=== PATIENT | female | born 1985 | race Caucasian/White ===

== ENCOUNTER 2017-05-11 21:23 | Emergency (ER) | payer OTHER ==
[2017-05-11 21:31] VITALS: BP 125/70; PULSE 122; TEMP 99; BMI 28.1
[2017-05-11] MEDS ORDERED: SULFAMETHOXAZOLE/TRIMETHOPRIM 800MG/160MG D.S. TABLET PO ONE (22:04)
[2017-05-11] MEDS ORDERED: OXYCODONE/APAP 5/325MG COMBO TABLET PO ONE (22:04)
--- NOTE | 2017-05-11 22:04 | PDOC ---
History of Present Illness - General History Source: Patient Exam Limitations: No Limitations - History of Present Illness Initial Comments: 05/11/17 22:10 The patient is a 31 year old female with significant past medical history of insulin dependent diabetes who presents to the ED for redness and swelling on the right buttock. Patient reports 4 days ago she had a insect bite on the right buttock, which subsequently developed into a painful abscess. She attempted to shital the abscess herself without being able to drain the area. 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 She has only taken 3 doses total thus far. Patient also has complaints of chills, but no fever or diaphoresis. The patient denies cough, SOB, chest pain, and palpitations. The patient denies abdominal pain, nausea, vomiting, and diarrhea. Allergies: NKDA Social History: No alcohol, tobacco, or drug use reported. Past Surgical History: None reported PCP: None reported <Kaylyn Dotson - Last Filed: 05/11/17 22:10> - General History Source: Patient <[email or web address] mai - Last Filed: 05/11/17 23:19> - General Chief Complaint: Wound Infection Stated Complaint: BUG BITE Time Seen by Provider: 05/11/17 21:42 Past History <Kaylyn Dotson - Last Filed: 05/11/17 22:10> - Past Medical History Diabetes: Yes - Psycho/Social/Smoking Cessation Hx Suicidal Ideation: No Smoking History: Never smoked Number of Cigarettes Smoked Daily: 3 Hx Alcohol Use: No Drug/Substance Use Hx: No <Benedict Burris - Last Filed: 05/11/17 23:19> - Past Medical History Allergies/Adverse Reactions: Allergies Allergy/AdvReac Type Severity Reaction Status Date / Time No Known Allergies Allergy Verified 05/11/17 21:27 Home Medications: Ambulatory Orders Insulin Glargine,Hum.rec.anlog [Lantus Solostar PEN (NF)] 50 units SQ BID Insulin Lispro [Humalog] 0 unit SQ TID 06/24/16 Metformin HCl 850 mg PO DAILY 06/24/16 Ibuprofen 800 mg PO TID #30 tablet 05/11/17 Oxycodone HCl/Acetaminophen [Percocet 5-325 mg Tablet] 1 - 2 tab PO Q6H #20 tablet MDD 4 05/11/17 Sulfamethoxazole/Trimethoprim [Bactrim *Ds*] 1 tab PO BID #14 tablet 05/11/17 Review of Systems - Review of Systems Able to Perform ROS?: Yes Comments:: 05/11/17 22:10 CONSTITUTIONAL: Absent: fever, no chills, no fatigue EYES: Absent: visual changes ENT: Absent: ear pain, no sore throat CARDIOVASCULAR: Absent: chest pain, no palpitations RESPIRATORY: Absent: cough, no SOB GI: Absent: abdominal pain, no nausea, no vomiting, no constipation, no diarrhea GENITOURINARY: Absent: dysuria, no frequency, no hematuria MUSCULOSKELETAL: +abscess (redness and swelling) of the right buttock Absent: back pain, no arthralgia, no myalgia SKIN: Absent: rash NEURO: Absent: headache <Kaylyn Dotson - Last Filed: 05/11/17 22:10> *Physical Exam - Vital Signs Last Vital Signs Temp Pulse Resp BP Pulse Ox 99 F 122 H 18 125/70 100 05/11/17 21:29 05/11/17 21:29 05/11/17 21:29 05/11/17 21:29 05/11/17 21:29 - Physical Exam Comments: 05/11/17 22:10 GENERAL: Well-appearing, well-nourished. No apparent distress. HEENT: Normocephalic, atraumatic. PERRL, EOM intact. CARDIOVASCULAR: Normal S1, S2. Regular rate and rhythm. PULMONARY: Clear to auscultation bilaterally. ABDOMEN: Soft, non-distended, non-tender. EXTREMITIES: Normal ROM in all four extremities. No gross deformities. SKIN: Warm, dry. No rash. Right buttock firm, nonfluctuant, no lesion, with surrounding erythema measuring 7cm in diameter. NEUROLOGICAL: No focal neurological deficits. <Kaylyn Dotson - Last Filed: 05/11/17 22:10> - Vital Signs Last Vital Signs Temp Pulse Resp BP Pulse Ox 99 F 122 H 18 125/70 100 05/11/17 21:29 05/11/17 21:29 05/11/17 21:29 05/11/17 21:29 05/11/17 21:29 <Benedict Burris - Last Filed: 05/11/17 23:19> Medical Decision Making - Medical Decision Making 05/11/17 22:09 Dr. Burris: The scribe's documentation has been prepared under my direction and personally reviewed by me in its entirery. I confirm that the note above accurately reflects all work, treatment, procedures, and medical decision making performed by me. <Benedict Burris - Last Filed: 05/11/17 23:19> *DC/Admit/Observation/Transfer - Attestations Scribe Attestion: 05/11/17 22:10 Documentation prepared by Kaylyn Dotson, acting as medical records library professor for Benedict Burris MD/DO. <Kaylyn Dotson - Last Filed: 05/11/17 22:10> - Discharge Dispostion Admit: No <Benedict Burris - Last Filed: 05/11/17 23:19> Diagnosis at time of Disposition: Abscess of cellulitis of buttock - Discharge Dispostion Disposition: HOME Condition at time of disposition: Stable - Prescriptions Prescriptions: Sulfamethoxazole/Trimethoprim [Bactrim *Ds*] 1 tab PO BID #14 tablet Ibuprofen 800 mg PO TID #30 tablet Oxycodone HCl/Acetaminophen [Percocet 5-325 mg Tablet] 1 - 2 tab PO Q6H #20 tablet MDD 4 - Patient Instructions Printed Discharge Instructions: DI for Wound Infection Additional Instructions: Take medication as directed. Apply warm compresses to area in order to soften lesion for expression or possible extraction - Post Discharge Activity Work/School Note: Back to Work
[2017-05-11] MEDS ORDERED: OXYCODONE/APAP 5/325MG COMBO TABLET ONE (22:11)
[2017-05-11] MEDS ORDERED: SULFAMETHOXAZOLE/TRIMETHOPRIM 800MG/160MG D.S. TABLET ONE (22:12)
== END 2017-05-11 22:50 | disposition home or self-care (01) ==
LOC: JER 21:23
DX: S30.860A Insect bite (nonvenomous) of lower back and pelvis, initial encounter (principal); L03.317 Cellulitis of buttock; W57.XXXA Bitten or stung by nonvenomous insect and other nonvenomous arthropods, initial encounter; Y93.89 Activity, other specified; Y92.89 Other specified places as the place of occurrence of the external cause; Y99.8 Other external cause status
CPT/HCPCS: 99281-25

== ENCOUNTER 2017-05-13 18:21 | Emergency (ER) | payer OTHER ==
[2017-05-13 18:31] VITALS: BMI 28.1
[2017-05-13] MEDS ORDERED: CLINDAMYCIN 600MG PREMIX IVPB 50 ML IVPB ONE ×2 (19:59→20:10)
--- NOTE | 2017-05-13 19:59 | PDOC ---
History of Present Illness - General Chief Complaint: SIRS, Suspected/Possible Stated Complaint: ABCESS/diabetic/revisit Time Seen by Provider: 05/13/17 19:19 History Source: Patient Exam Limitations: No Limitations - History of Present Illness Initial Comments: 05/20/17 01:23 31-year-old female presents to the emergency department complaining of swelling/ tenderness and redness to the right mid buttocks 4 days. Patient denies any fever, chills, nausea/vomiting, abdominal pains, difficulty voiding or having difficult bowel movements. Patient states she was taking Keflex without relief of pain/swelling or redness. Timing/Duration: reports: week Past History - Past Medical History Allergies/Adverse Reactions: Allergies Allergy/AdvReac Type Severity Reaction Status Date / Time No Known Allergies Allergy Verified 05/15/17 23:54 Home Medications: Ambulatory Orders Insulin Glargine,Hum.rec.anlog [Lantus Solostar PEN (NF)] 50 units SQ BID Metformin HCl 850 mg PO DAILY 06/24/16 Ibuprofen 800 mg PO TID #30 tablet 05/11/17 Oxycodone HCl/Acetaminophen [Percocet 5-325 mg Tablet] 1 - 2 tab PO Q6H #20 tablet MDD 4 05/11/17 Sulfamethoxazole/Trimethoprim [Bactrim *Ds*] 1 tab PO BID #14 tablet 05/11/17 Clindamycin HCl 300 mg PO TID #21 capsule 05/13/17 Oxycodone HCl/Acetaminophen [Percocet 5-325 mg Tablet] 1 tab PO Q6H #15 tablet MDD 4 05/13/17 Diabetes: Yes (iddm) Hypercholesterolemia: Yes - Surgical History Cholecystectomy: Yes - Psycho/Social/Smoking Cessation Hx Anxiety: No Suicidal Ideation: No Smoking History: Never smoked Have you smoked in the past 12 months: No Number of Cigarettes Smoked Daily: 3 Information on smoking cessation initiated: No Hx Alcohol Use: No Drug/Substance Use Hx: No Substance Use Type: None Review of Systems - Review of Systems Able to Perform ROS?: Yes Comments:: 05/20/17 01:24 CONSTITUTIONAL: Absent: fever, chills, diaphoresis, generalized weakness, malaise, loss of appetite HEENT: Absent: rhinorrhea, nasal congestion, throat pain, throat swelling, difficulty swallowing, mouth swelling, ear pain, eye pain, visual Changes CARDIOVASCULAR: Absent: chest pain, loss of consciousness, palpitations, irregular heart rate, peripheral edema RESPIRATORY: Absent: cough, shortness of breath, dyspnea with exertion, orthopnea, wheezing, stridor, hemoptysis GASTROINTESTINAL: Absent: abdominal pain, abdominal distension, nausea, vomiting, diarrhea, constipation, melena, hematochezia GENITOURINARY: Absent: dysuria, frequency, urgency, hesitancy, hematuria, flank pain, genital pain MUSCULOSKELETAL: Absent: myalgia, arthralgia, joint swelling SKIN: right mid buttock: +pain/redness Absent: rash, itching, pallor HEMATOLOGIC/IMMUNOLOGIC: Absent: easy bleeding, easy bruising, lymphadenopathy, frequent infections ENDOCRINE: Absent: unexplained weight gain, unexplained weight loss, heat intolerance, cold intolerance NEUROLOGIC: Absent: headache, focal weakness or paresthesias, dizziness, unsteady gait, seizure, mental status changes, bladder or bowel incontinence PSYCHIATRIC: Absent: anxiety, depression, suicidal or homicidal ideation, hallucinations. 05/20/17 01:25 Is the patient limited Uzbek proficient: No *Physical Exam - Vital Signs Last Vital Signs Temp Pulse Resp BP Pulse Ox 99.3 F 114 H 18 123/68 100 05/13/17 18:28 05/13/17 18:28 05/13/17 18:28 05/13/17 18:28 05/13/17 18:28 - Physical Exam Comments: 05/20/17 01:25 GENERAL: Well developed, well nourished. Awake and alert. No acute distress. HEENT: Normocephalic, atraumatic. PERRLA, EOMI. No conjunctival pallor. Sclera are non- icteric. Moist mucous membranes. Oropharynx is clear. NECK: Supple. Full ROM. No JVD. Carotid pulses 2+ and symmetric, without bruits. No thyromegaly. No lymphadenopathy. CARDIOVASCULAR: Regular rate and rhythm. No murmurs, rubs, or gallops. Distal pulses are 2+ and symmetric. PULMONARY: No evidence of respiratory distress. Lungs clear to auscultation bilaterally. No wheezing, rales or rhonchi. ABDOMINAL: Soft. Non-tender. Non-distended. No rebound or guarding. No organomegaly. Normoactive bowel sounds. MUSCULOSKELETAL Normal range of motion at all joints. No bony deformities or tenderness. No CVA tenderness. EXTREMITIES: No cyanosis. No clubbing. No edema. No calf tenderness. SKIN: Warm and dry. Normal capillary refill. No rashes. No jaundice. NEUROLOGICAL: Alert, awake, appropriate. Cranial nerves 2-12 intact. No deficits to light touch and temperature in face, upper extremities and lower extremities. No motor deficits in the in face, upper extremities and lower extremities. Normoreflexic in the upper and lower extremities. Normal speech. Toes are down- going bilaterally. Gait is normal without ataxia. PSYCHIATRIC: Cooperative. Good eye contact. Appropriate mood and affect. Right buttock: +erythema/edematous/indurated Bedside Ultrasound shows a pocket of fluid Progress Note - Progress Note Progress Note: US on right buttock shows a pocket of fluid I&D: right buttocks Betadine prep 1%lidocaine=5cc Incise with #10 blade would culture obtained metzenbaum/spread under incision/copious purulent discharge Copious irrigation with NS packing with iodoform 1/4" 4X4 gauze cover *DC/Admit/Observation/Transfer Diagnosis at time of Disposition: Abscess of buttock - Discharge Dispostion Disposition: HOME Condition at time of disposition: Stable Admit: No - Prescriptions Prescriptions: Clindamycin HCl 300 mg PO TID #21 capsule Oxycodone HCl/Acetaminophen [Percocet 5-325 mg Tablet] 1 tab PO Q6H #15 tablet MDD 4 - Referrals Referrals: Daniel Perez MD [Staff Physician] - - Patient Instructions Additional Instructions: Wound check and packing removal in 2 days Tylenol/Motrin as mild pain rx: Percocet 5 mg 1 tablet every 6 hours as needed for severe pain Warm compresses Stop the Keflex Take the Clindamycin Return to the ER for severe/persistent/worsening symptoms, red streaks from incision on your right buttock
[2017-05-13] MEDS ORDERED: HYDROmorphone HCL CARPU-JECT 1 MG/1 ML DISP.SYRIN IVPUSH ONE (20:24)
[2017-05-13] MEDS ORDERED: HYDROmorphone HCL CARPU-JECT 1 MG/1 ML DISP.SYRIN ONE (20:35)
[2017-05-13] MEDS ORDERED: LIDOCAINE HCL/PF 1% SDV 5ML VIAL ONE (21:46)
--- NOTE | 2017-05-13 21:51 | PDOC ---
*Physical Exam - Vital Signs Last Vital Signs Temp Pulse Resp BP Pulse Ox 99.3 F 114 H 18 123/68 100 05/13/17 18:28 05/13/17 18:28 05/13/17 18:28 05/13/17 18:28 05/13/17 18:28 - Physical Exam General Appearance: Yes: Nourished, Appropriately Dressed Respiratory/Chest: positive: Lungs Clear, Normal Breath Sounds Cardiovascular: positive: Regular Rhythm, Regular Rate, S1, S2 Gastrointestinal/Abdominal: positive: Soft. negative: Tender Musculoskeletal: positive: Normal Inspection Extremity: positive: Normal Inspection Integumentary: positive: Other (right buttock with large indurated area 2.x 2 in. no palp fluctuance. ) ED Treatment Course - Medications Given in the ED: ED Medications Discontinued Medications Generic Name Dose Route Start Last Admin Trade Name Freq PRN Reason Stop Dose Admin Hydromorphone HCl 1 mg 05/13/17 20:24 05/13/17 20:45 Dilaudid Injection - IVPUSH 05/13/17 20:25 1 mg ONCE ONE Administration Clindamycin Phosphate 50 mls @ 100 mls/hr 05/13/17 19:59 05/13/17 20:22 Cleocin 600 Mg Premix Ivpb - IVPB 05/13/17 20:28 100 mls/hr ONCE ONE Administration Progress Note - Progress Note Progress Note: bedside focused ED ultrasound performed using linear transducer, right butock. scanned in two planes. 2x 2. x 1 cm fluid collection noted. 0.5 cm below surface impression: abscess. Medical Decision Making - Medical Decision Making 05/13/17 21:50 31 yo F with right buttock pain swelling " boil. " was startd on abx keflex x one week, then added bactrim yeterday. since, patient still having pain and swelling increasing. no n/v no fever. no mod factors. has had prior abscesses which were drained on inner thigh in the past. on exam, right buttock with large undurated area. plan: bedside us r/o abcess, possible I &D pt seen and examined, d/w ravin Salter, agree with plan. *DC/Admit/Observation/Transfer - Discharge Dispostion Condition at time of disposition: Stable - Prescriptions Prescriptions: Clindamycin HCl 300 mg PO TID #21 capsule Oxycodone HCl/Acetaminophen [Percocet 5-325 mg Tablet] 1 tab PO Q6H #15 tablet MDD 4 - Referrals Referrals: Daniel Perez MD [Staff Physician] - - Patient Instructions Additional Instructions: Wound check and packing removal in 2 days Tylenol/Motrin as mild pain rx: Percocet 5 mg 1 tablet every 6 hours as needed for severe pain Warm compresses Stop the Keflex Take the Clindamycin Return to the ER for severe/persistent/worsening symptoms, red streaks from incision on your right buttock - Post Discharge Activity
[2017-05-13 22:53] VITALS: BP 119/67; PULSE 92; TEMP 98.9
== END 2017-05-13 22:54 | disposition home or self-care (01) ==
LOC: JER 18:21
PROC: 0H98XZZ Drainage of Buttock Skin, External Approach (ICD-10-PCS; principal; 2017-05-13)
DX: L02.31 Cutaneous abscess of buttock (principal); E11.29 Type 2 diabetes mellitus with other diabetic kidney complication; Z79.4 Long term (current) use of insulin; E78.00 Pure hypercholesterolemia, unspecified
CPT/HCPCS: 10060; 87070; 87186; 87205; 99282-25

== ENCOUNTER 2017-05-15 23:43 | Emergency (ER) | payer OTHER ==
[2017-05-15 23:55] VITALS: BP 128/72; PULSE 85; TEMP 98.6; BMI 28.1
--- NOTE | 2017-05-16 00:37 | PDOC ---
*Physical Exam - Vital Signs Last Vital Signs Temp Pulse Resp BP Pulse Ox 98.6 F 85 20 128/72 99 05/15/17 23:54 05/15/17 23:54 05/15/17 23:54 05/15/17 23:54 05/15/17 23:54 Medical Decision Making - Medical Decision Making 05/16/17 00:37 Pt seen by Midlevel Provider under my direct supervision S/p packing removal No more purulent drainage I agree with plan as outlined by Midlevel Provider *DC/Admit/Observation/Transfer Diagnosis at time of Disposition: Abscess - Discharge Dispostion Disposition: HOME Condition at time of disposition: Stable - Patient Instructions Printed Discharge Instructions: How to Care for a Surgical Wound Additional Instructions: Your Discharge Instructions: You must call primary care physician within 24 hours to arrange follow-up. Return to the Emergency Department with any new, persistent or worsening symptoms, for fever, chills, SOB, dizziness or any other concerning changes that may occur. He must do sitz baths as often as possible, try to aspirate the wound with each sitz bath
--- NOTE | 2017-05-16 00:43 | PDOC ---
History of Present Illness - General Chief Complaint: Revisit,Wound Recheck Stated Complaint: REMOVAL OF PACKING FROM ABSCESS Time Seen by Provider: 05/16/17 00:37 History Source: Patient - History of Present Illness Initial Comments: 05/16/17 00:38 Patient is a 31 year old female h/o DM, cholecystecomy, excision of L ankle mass , and left breast mass, here for packing removal s/p I&D of right buttock abscess yesterday. Is currently on antibx, no fever, no chills, pmd: Dr. Stuart PMHX: as above PSocHx: neg cig, etoh, drug ALL: NKDA Review of Systems: GENERAL/CONSTITUTIONAL: No fever or chills. No weakness. No weight change. HEAD, EYES, EARS, NOSE AND THROAT: No change in vision. No ear pain or discharge. No sore throat. CARDIOVASCULAR: No chest pain or shortness of breath. RESPIRATORY: No cough, wheezing, or hemoptysis. GASTROINTESTINAL: No nausea, vomiting, diarrhea or constipation. No rectal bleeding. GENITOURINARY: No dysuria, frequency, or change in urination. MUSCULOSKELETAL: No joint or muscle swelling or pain. No neck or back pain. SKIN AND BREASTS: No rash or easy bruising. NEUROLOGIC: No headache, vertigo, loss of consciousness, or loss of sensation. PSYCHIATRIC: No depression or anxiety. ENDOCRINE: No increased thirst. No abnormal weight change. HEMATOLOGIC/LYMPHATIC: No anemia, easy bleeding, or history of blood clots. ALLERGIC/IMMUNOLOGIC: No hives or skin allergy. No latex allergy. GENERAL: [The patient is awake, alert, and fully oriented, in no acute distress. ] HEAD: [Normal with no signs of trauma.] EYES: [Pupils equal, round and reactive to light, extraocular movements intact, sclera anicteric, conjunctiva clear.] ENT: [Ears normal, nares patent, oropharynx clear without exudates. Moist mucous membranes.] NECK: [Normal range of motion, supple without lymphadenopathy, JVD, or masses.] LUNGS: [Breath sounds equal, clear to auscultation bilaterally. No wheezes, and no crackles.] HEART: [Regular rate and rhythm, normal S1 and S2 without murmur, rub.] ABDOMEN: [Soft, nontender, normoactive bowel sounds. No guarding, no rebound. No masses.] EXTREMITIES: [Normal range of motion, no edema. No clubbing or cyanosis. No cords, erythema, or tenderness.] NEUROLOGICAL: [Cranial nerves II through XII grossly intact. Normal speech, normal gait.] PSYCH: [Normal mood, normal affect.] SKIN: Right buttocks with large cellulitic area 6x6 with packing in place, Past History - Past Medical History Allergies/Adverse Reactions: Allergies Allergy/AdvReac Type Severity Reaction Status Date / Time No Known Allergies Allergy Verified 05/15/17 23:54 Home Medications: Ambulatory Orders Insulin Glargine,Hum.rec.anlog [Lantus Solostar PEN (NF)] 50 units SQ BID Metformin HCl 850 mg PO DAILY 06/24/16 Ibuprofen 800 mg PO TID #30 tablet 05/11/17 Oxycodone HCl/Acetaminophen [Percocet 5-325 mg Tablet] 1 - 2 tab PO Q6H #20 tablet MDD 4 05/11/17 Sulfamethoxazole/Trimethoprim [Bactrim *Ds*] 1 tab PO BID #14 tablet 05/11/17 Clindamycin HCl 300 mg PO TID #21 capsule 05/13/17 Oxycodone HCl/Acetaminophen [Percocet 5-325 mg Tablet] 1 tab PO Q6H #15 tablet MDD 4 05/13/17 Diabetes: Yes (iddm) Hypercholesterolemia: Yes - Surgical History Cholecystectomy: Yes - Psycho/Social/Smoking Cessation Hx Anxiety: No Suicidal Ideation: No Smoking History: Never smoked Have you smoked in the past 12 months: No Number of Cigarettes Smoked Daily: 3 Information on smoking cessation initiated: No Hx Alcohol Use: No Drug/Substance Use Hx: No Substance Use Type: None *Physical Exam - Vital Signs Last Vital Signs Temp Pulse Resp BP Pulse Ox 98.6 F 85 20 128/72 99 05/15/17 23:54 05/15/17 23:54 05/15/17 23:54 05/15/17 23:54 05/15/17 23:54 Medical Decision Making - Medical Decision Making 05/16/17 00:41 Patient is a 31 year old female with abscess to the right buttock s/p I&D with packing here for packing removal. packing was removed without complications cellulitis still present, continue antibx. sitz baths I discussed the physical exam findings, ancillary test results and final diagnoses with the patient. I answered all of the patient's questions. The patient was satisfied with the care received and felt comfortable with the discharge plan and treatment plan. The Patient agrees to follow up with the primary care physician within 24-72 hours. *DC/Admit/Observation/Transfer Diagnosis at time of Disposition: Abscess - Discharge Dispostion Disposition: HOME Condition at time of disposition: Stable - Patient Instructions Printed Discharge Instructions: How to Care for a Surgical Wound Additional Instructions: Your Discharge Instructions: You must call primary care physician within 24 hours to arrange follow-up. Return to the Emergency Department with any new, persistent or worsening symptoms, for fever, chills, SOB, dizziness or any other concerning changes that may occur. He must do sitz baths as often as possible, try to aspirate the wound with each sitz bath
== END 2017-05-16 00:53 | disposition home or self-care (01) ==
LOC: JER 23:43
DX: Z48.01 Encounter for change or removal of surgical wound dressing (principal)
CPT/HCPCS: 99281-25

== ENCOUNTER 2017-08-26 11:00 | Emergency (ER) | payer OTHER ==
[2017-08-26 11:09] VITALS: TEMP 98.2; BMI 28.1
[2017-08-26] MEDS ORDERED: SODIUM CHLORIDE 2,000 ML IV STA (11:15)
[2017-08-26] MEDS ORDERED: ONDANSETRON 4 MG/2 ML VIAL IVPB ONE (11:15)
[2017-08-26] MEDS ORDERED: FAMOTIDINE 20 MG/50 ML IVPB 50 ML IVPB ONE ×2 (11:15→12:35)
[2017-08-26] MEDS ORDERED: ONDANSETRON 4 MG/2 ML VIAL ONE (11:28)
--- NOTE | 2017-08-26 11:44 | PDOC ---
History of Present Illness - General History Source: Patient Exam Limitations: No Limitations - History of Present Illness Initial Comments: 08/26/17 12:49 Patient is a 32 year old female with a significant past medical history of Diabetes (type 2, insulin dependent), High Cholesterol, DM, cholecystectomy, excision of L ankle mass, and left breast mass, who presents to the ED with complaints of vomiting that began yesterday. She reports vomiting beginning suddenly yesterday while at work, causing her to be sent home. Patient reports experiencing intermittent episodes of dizziness secondary to vomiting. She reports her last menstrual cycle was august 14. Denies out of state travel, contact with sick individuals. Denies fever, chills. Denies chest pain , SOB. Denies any other symptoms. Allergies: None Surgical history Social history: No smoking. No alcohol. No illicit drugs. PMD: Dr. Yoder. <Sacha Layton - Last Filed: 08/26/17 12:49> - General History Source: Patient Exam Limitations: No Limitations <Manpreet Wild - Last Filed: 08/26/17 14:10> - General Chief Complaint: Nausea/Vomiting Stated Complaint: VOMITING Time Seen by Provider: 08/26/17 11:14 Past History <Sacha Layton - Last Filed: 08/26/17 12:49> - Past Medical History Diabetes: Yes Hypercholesterolemia: Yes - Surgical History Abdominal Surgery: Yes Cholecystectomy: Yes - Suicide/Smoking/Psychosocial Hx Smoking History: Current some day smoker Have you smoked in the past 12 months: Yes Number of Cigarettes Smoked Daily: 1 Information on smoking cessation initiated: No Hx Alcohol Use: No Drug/Substance Use Hx: No Substance Use Type: None <Manpreet Wild - Last Filed: 08/26/17 14:10> - Past Medical History Allergies/Adverse Reactions: Allergies Allergy/AdvReac Type Severity Reaction Status Date / Time No Known Allergies Allergy Verified 08/26/17 11:09 Home Medications: Ambulatory Orders Insulin Glargine,Hum.rec.anlog [Lantus Solostar PEN (NF)] 50 units SQ BID Metformin HCl 850 mg PO DAILY 06/24/16 Oxycodone HCl/Acetaminophen [Percocet 5-325 mg Tablet] 1 - 2 tab PO Q6H #20 tablet MDD 4 05/11/17 Famotidine [Pepcid] 20 mg PO BID PRN #14 tablet 08/26/17 Metoclopramide HCl [Reglan] 10 mg PO Q8H PRN #15 tablet 08/26/17 Ondansetron HCl [Zofran] 4 mg PO Q8H PRN #12 tablet 08/26/17 Review of Systems - Review of Systems Able to Perform ROS?: Yes Comments:: 08/26/17 12:49 GENERAL/CONSTITUTIONAL: No fever or chills. No weakness. HEAD, EYES, EARS, NOSE AND THROAT: No change in vision. No ear pain or discharge. No sore throat. CARDIOVASCULAR: No chest pain or shortness of breath. RESPIRATORY: No cough, wheezing, or hemoptysis. GASTROINTESTINAL: +Nausea +Vomiting. No diarrhea or constipation. GENITOURINARY: No dysuria, frequency, or change in urination. MUSCULOSKELETAL: No joint or muscle swelling or pain. No neck or back pain. SKIN: No rash NEUROLOGIC: +dizziness No headache, vertigo, loss of consciousness, or change in strength/sensation. ENDOCRINE: No increased thirst. No abnormal weight change. HEMATOLOGIC/LYMPHATIC: No anemia, easy bleeding, or history of blood clots. ALLERGIC/IMMUNOLOGIC: No hives or skin allergy. All Other Systems: Reviewed and Negative <Sacha Layton - Last Filed: 08/26/17 12:49> *Physical Exam - Vital Signs Last Vital Signs Temp Pulse Resp BP Pulse Ox 98.2 F 64 18 155/75 99 08/26/17 11:05 08/26/17 11:05 08/26/17 11:05 08/26/17 11:05 08/26/17 11:05 - Physical Exam Comments: 08/26/17 13:00 GENERAL: Awake, alert, and fully oriented, in no acute distress HEAD: No signs of trauma EYES: PERRLA, EOMI, sclera anicteric, conjunctiva clear ENT: +Dry mucous Membrane. Auricles normal inspection, hearing grossly normal, nares patent, oropharynx clear without exudates. NECK: Normal ROM, supple, no lymphadenopathy, JVD, or masses LUNGS: Breath sounds equal, clear to auscultation bilaterally. No wheezes, and no crackles HEART: Regular rate and rhythm, normal S1 and S2, no murmurs, rubs or gallops ABDOMEN: Soft, nontender, normoactive bowel sounds. No guarding, no rebound. No masses EXTREMITIES: Normal range of motion, no edema. No clubbing or cyanosis. No cords, erythema, or tenderness NEUROLOGICAL: Cranial nerves II through XII grossly intact. Normal speech, normal gait SKIN: Warm, Dry, normal turgor, no rashes or lesions noted. <Sacha Layton - Last Filed: 08/26/17 12:49> - Vital Signs Last Vital Signs Temp Pulse Resp BP Pulse Ox 98.2 F 64 18 155/75 99 08/26/17 11:05 08/26/17 11:05 08/26/17 11:05 08/26/17 11:05 08/26/17 11:05 <Manpreet Wild - Last Filed: 08/26/17 14:10> Heart Score/ECG Review #1 ECG reviewed & interpreted by me at: 11:45 08/26/17 12:27 NSR 59, no std/anna, normal axis, normal intervals, QTC 419 msec <Manpreet Wild - Last Filed: 08/26/17 14:10> ED Treatment Course - LABORATORY CBC & Chemistry Diagram: 08/26/17 11:30 08/26/17 11:30 - ADDITIONAL ORDERS Additional order review: Laboratory Results 08/26/17 08/26/17 08/26/17 11:30 11:30 11:20 Sodium 137 Potassium 4.0 Chloride 101 Carbon Dioxide 27 Anion Gap 9 BUN 6 L Creatinine 0.7 Creat Clearance w eGFR > 60 Random Glucose 277 H Lactic Acid 1.8 Calcium 9.3 Phosphorus 2.9 Magnesium 1.8 Total Bilirubin 0.9 AST 22 ALT 26 Alkaline Phosphatase 103 Creatine Kinase 106 Troponin I < 0.02 Total Protein 8.0 Albumin 4.0 Lipase 73 Serum , Qual Negative Acetone, Qual Negative L - Medications Given in the ED: ED Medications Discontinued Medications Generic Name Dose Route Start Last Admin Trade Name Freq PRN Reason Stop Dose Admin Famotidine/Sodium Chloride 50 mls @ 100 mls/hr 08/26/17 11:15 08/26/17 12:47 Pepcid 20 Mg Premixed Ivpb - IVPB 08/26/17 11:44 100 mls/hr ONCE ONE Administration Metoclopramide HCl 10 mg 08/26/17 12:25 08/26/17 12:30 Reglan Injection - IVPB 08/26/17 12:26 10 mg ONCE ONE Administration Ondansetron HCl 4 mg 08/26/17 11:15 08/26/17 11:30 Zofran Injection IVPB 08/26/17 11:16 4 mg ONCE ONE Administration <Sacha Layton - Last Filed: 08/26/17 12:49> - LABORATORY CBC & Chemistry Diagram: 08/26/17 11:30 08/26/17 11:30 <Manpreet Wild - Last Filed: 08/26/17 14:10> Medical Decision Making - Medical Decision Making 08/26/17 11:27 A portion of this note was documented by scribe services under my direction. I have reviewed the details of the note, within reason, and agree with the documentation with the following case summary and management plan written by me. Patient treated in the ED. Nursing notes are reviewed and incorporated into the medical decision-making. Vital signs reviewed. Peripheral IV access obtained by the nurse, laboratory studies are drawn and sent, reviewed and interpreted by myself. Vital Signs Temp Pulse Resp BP Pulse Ox 98.2 F 64 18 155/75 99 08/26/17 11:05 08/26/17 11:05 08/26/17 11:05 08/26/17 11:05 08/26/17 11:05 32-year-old female with past medical history of insulin-dependent diabetes presents with persistent vomiting. The patient reported persistent vomiting today. Patient reported feeling nauseous yesterday and poor appetite. Not taken her insulin as she did not. Reported sugars have been in the mid 300s. Reported episodes of vomiting but no fevers or chills. Denies diarrhea. Came into the ED for further evaluation. We'll need to rule out DKA. Within differential is gastroenteritis, gastroparesis, gastritis. The patient has no abdominal tenderness. We'll obtain labs, IV fluids and reassess. 08/26/17 14:05 CBC, BMP 08/26/17 11:30 08/26/17 11:30 CMP Sodium 137 mmol/L (136-145) 08/26/17 11:30 Potassium 4.0 mmol/L (3.5-5.1) 08/26/17 11:30 Chloride 101 mmol/L (98-107) 08/26/17 11:30 Carbon Dioxide 27 mmol/L (21-32) 08/26/17 11:30 Anion Gap 9 (8-16) 08/26/17 11:30 BUN 6 mg/dL (7-18) L 08/26/17 11:30 Creatinine 0.7 mg/dL (0.55-1.02) 08/26/17 11:30 Creat Clearance w eGFR > 60 (>60) 08/26/17 11:30 Random Glucose 277 mg/dL (74-106) H 08/26/17 11:30 Lactic Acid 1.8 mmol/L (0.4-2.0) 08/26/17 11:30 Calcium 9.3 mg/dL (8.5-10.1) 08/26/17 11:30 Phosphorus 2.9 mg/dL (2.5-4.9) 08/26/17 11:30 Magnesium 1.8 mg/dL (1.8-2.4) 08/26/17 11:30 Total Bilirubin 0.9 mg/dL (0.2-1.0) 08/26/17 11:30 AST 22 U/L (15-37) 08/26/17 11:30 ALT 26 U/L (12-78) 08/26/17 11:30 Alkaline Phosphatase 103 U/L (45-117) 08/26/17 11:30 Creatine Kinase 106 IU/L (26-192) 08/26/17 11:30 Troponin I < 0.02 ng/ml (0.00-0.05) 08/26/17 11:30 Total Protein 8.0 g/dl (6.4-8.2) 08/26/17 11:30 Albumin 4.0 g/dl (3.4-5.0) 08/26/17 11:30 Lipase 73 U/L (73-393) 08/26/17 11:30 Serum , Qual Negative 08/26/17 11:20 Labs reviewed. Findings are unremarkable. Pt tolerated PO after medications. Likely gastritis vs. gastroparesis. Diabetes counselling given. Pt instructed to follow up with PMD. Return precautions given if pt symptoms are persistent or worsens. Pt will go home with sister I discussed the physical exam findings, ancillary test results and final diagnoses with the patient. I answered all of the patient's questions. The patient was satisfied with the care received and felt comfortable with the discharge plan and treatment plan. The patient will call their primary care physician within 24 hours to arrange follow-up and will return to the Emergency Department with any new, persistant or worsening symptoms. <Manpreet Wild - Last Filed: 08/26/17 14:10> *DC/Admit/Observation/Transfer - Attestations Scribe Attestion: 08/26/17 13:00 Documentation prepared by Sacha Layton, acting as medical driver for Manpreet Wild MD. <Sacha Layton - Last Filed: 08/26/17 12:49> - Discharge Dispostion Admit: No <Manpreet Wild - Last Filed: 08/26/17 14:10> Diagnosis at time of Disposition: Gastritis Qualifiers: Gastritis type: unspecified gastritis Chronicity: acute Gastritis bleeding: without bleeding Qualified Code(s): K29.00 - Acute gastritis without bleeding - Discharge Dispostion Disposition: HOME Condition at time of disposition: Improved - Prescriptions Prescriptions: Famotidine [Pepcid] 20 mg PO BID PRN #14 tablet PRN Reason: Abdominal Pain Metoclopramide HCl [Reglan] 10 mg PO Q8H PRN #15 tablet PRN Reason: Nausea Ondansetron HCl [Zofran] 4 mg PO Q8H PRN #12 tablet PRN Reason: Nausea - Patient Instructions Printed Discharge Instructions: DI for Gastritis Additional Instructions: Take 20 mg pepcid every 12 hours as needed for abdominal pain. Take 4 mg zofran every 8 hours and/or 10 mg reglan every 8 hours as needed for nausea. Drink plenty of fluids and rest. It may take several days before your symptoms improve. If you have uncontrollable vomiting, please return to the ER for further evaluation.
[2017-08-26 12:20] LABS: ANION GAP 9 (8-16); BILIRUBIN,TOTAL 0.9 mg/dL (0.2-1.0); CALCIUM 9.3 mg/dL (8.5-10.1); CO2 27 mmol/L (21-32); CREATININE 0.7 mg/dL (0.55-1.02); GLUCOSE,RANDOM 277 mg/dL (74-106); PHOSPHOROUS 2.9 mg/dL (2.5-4.9); SGPT/ALT 26 U/L (12-78)
[2017-08-26 12:24] LABS: ALK PHOS 103 U/L (45-117); TROPONIN I < 0.02 ng/ml (0.00-0.05)
[2017-08-26 12:25] LABS: CPK 106 IU/L (26-192); MAGNESIUM 1.8 mg/dL (1.8-2.4); SGOT/AST 22 U/L (15-37)
[2017-08-26] MEDS ORDERED: METOCLOPRAMIDE HCL INJECTION 10 MG/2 ML VIAL IVPB ONE (12:25)
[2017-08-26] MEDS ORDERED: METOCLOPRAMIDE HCL INJECTION 10 MG/2 ML VIAL ONE (12:34)
[2017-08-26 12:35] LABS: ACETONE SERUM NEGATIVE (NEGATIVE)
[2017-08-26 12:47] LABS: BASOPHIL 0.2 % (0-2.0); EOSINOPHIL 0.3 % (0-4.5); MCH 27.9 pg (25.7-33.7); MCHC 32.5 g/dl (32.0-36.0); MEAN CELL VOLUME 86.1 fl (80-96); MEAN PLT VOLUME 9.5 fl (7.5-11.1); NEUTROPHILS 83.3 % (42.8-82.8); PLATELET COUNT 265 K/MM3 (134-434); RDW 13.7 % (11.6-15.6); WHITE BLOOD COUNT 11.5 K/mm3 (4.0-10.0)
[2017-08-26] MEDS ORDERED: LORazepam 2 MG/ML SDV VIAL ONE (13:25)
[2017-08-26 14:30] VITALS: BP 150/89; PULSE 60
--- NOTE | 2017-08-27 19:28 | EKG ---
Test Reason : Blood Pressure : / mmHG Vent. Rate : 059 BPM Atrial Rate : 059 BPM P-R Int : 138 ms QRS Dur : 082 ms QT Int : 424 ms P-R-T Axes : 024 041 037 degrees QTc Int : 419 ms SINUS BRADYCARDIA OTHERWISE NORMAL ECG NO PREVIOUS ECGS AVAILABLE CLINICAL CORRELATION IS RECOMMENDED Confirmed by TAMIE MEYERS MD ([id number]) on 08/27/2017 7:27:54 PM Referred By: Confirmed By:TAMIE MEYERS MD
== END 2017-08-26 14:30 | disposition home or self-care (01) ==
LOC: JER 11:00
PROC: 3E033GC Introduction of Other Therapeutic Substance into Peripheral Vein, Percutaneous Approach (ICD-10-PCS; principal; 2017-08-26)
PROC: 3E033NZ Introduction of Analgesics, Hypnotics, Sedatives into Peripheral Vein, Percutaneous Approach (ICD-10-PCS; 2017-08-26)
PROC: 3E0337Z Introduction of Electrolytic and Water Balance Substance into Peripheral Vein, Percutaneous Approach (ICD-10-PCS; 2017-08-26)
DX: K29.00 Acute gastritis without bleeding (principal); E11.9 Type 2 diabetes mellitus without complications; Z79.4 Long term (current) use of insulin; F17.210 Nicotine dependence, cigarettes, uncomplicated; E78.00 Pure hypercholesterolemia, unspecified
CPT/HCPCS: 36415; 80053; 81003; 82009; 83605; 83690; 83735; 84100; 84484; 84703; 85025; 93005; 93010; 96361; 96365; 96375; 99284-25

== ENCOUNTER 2017-08-31 13:48 | Emergency (ER) | payer OTHER ==
[2017-08-31 13:56] VITALS: BMI 28.1
--- NOTE | 2017-08-31 14:06 | PDOC ---
History of Present Illness - General Chief Complaint: Blood Sugar Problem Stated Complaint: SOB Time Seen by Provider: 08/31/17 14:06 History Source: Patient - History of Present Illness Initial Comments: 08/31/17 16:29 CC: 6 day h/o vomiting Patient is a 32 y.o. female with a PMH of IDDM and DLD who presents to our ED this afternoon c/o 5-6 episodes daily of yellowish, non-bloody vomiting. Patient sometimes c/o of associated cramping abdominal pain as well as generalized weakness and constipation (chronic) but notes she has been tolerating PO intake including fruit, soup, white rice and a pereira icee. Patient also endorses some shortness of breath. Of note patient was evaluated at our facility on 08/26 for similar complaints at which time she was discharged with Reglan however patient notes it did not provide any relief. Patient does endorse a h/o DKA @ time of her diagnosis, and states she sometimes measures her BS at home and her a.m. sugars usually run in the 140's- 150's and she notes moderate adherence to her DM medication (Metformin, Glargine , Humalog). Patient states she has not taken her Metformin for 2 days given her difficulty tolerating PO intake and states she last took 5 units of Humalog yesterday morning when she had some pineapple and has not taken any other insulin prior to presentation to our ED. Surgical: C/S x2 PMD: Dr. 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 Social: denies cigarettes, 3-4 alcoholic drinks monthly, denies recreational drug use NKDA; possible contrast allergy Past History - Past Medical History Allergies/Adverse Reactions: Allergies Allergy/AdvReac Type Severity Reaction Status Date / Time shellfish derived Allergy Verified 08/31/17 13:54 Home Medications: Ambulatory Orders Insulin Glargine,Hum.rec.anlog [Lantus Solostar PEN (NF)] 50 units SQ BID Metformin HCl 850 mg PO DAILY 06/24/16 Insulin Lispro [Humalog] 10 units SQ PRN 08/31/17 Diabetes: Yes Hypercholesterolemia: Yes - Surgical History Abdominal Surgery: Yes Cholecystectomy: Yes - Suicide/Smoking/Psychosocial Hx Smoking History: Current every day smoker Have you smoked in the past 12 months: Yes Number of Cigarettes Smoked Daily: 2 Information on smoking cessation initiated: Yes 'Breaking Loose' booklet given: 08/31/17 Hx Alcohol Use: Yes (occasionally) Drug/Substance Use Hx: No Substance Use Type: None Review of Systems - Review of Systems Constitutional: No: Chills, Fever Respiratory: Yes: Shortness of Breath. No: Cough Cardiac (ROS): No: Chest Pain, Irregular Heart Rate, Lightheadedness, Palpitations ABD/GI: Yes: Constipated, Nausea, Vomiting. No: Diarrhea All Other Systems: Reviewed and Negative *Physical Exam - Vital Signs Last Vital Signs Temp Pulse Resp BP Pulse Ox 97.7 F 77 16 142/93 100 08/31/17 13:50 08/31/17 13:50 08/31/17 13:50 08/31/17 13:50 08/31/17 13:50 - Physical Exam General Appearance: Yes: Nourished, Obese Neck: positive: Trachea midline, Supple Respiratory/Chest: positive: Lungs Clear, Normal Breath Sounds Cardiovascular: positive: S1, S2 Gastrointestinal/Abdominal: positive: Tender (TTP in all 4 quadrants on superifical palpation), Decreased BS Extremity: negative: Normal Capillary Refill Integumentary: positive: Normal Color, Dry, Warm, Diaphoresis ED Treatment Course - LABORATORY CBC & Chemistry Diagram: 08/31/17 14:50 08/31/17 14:50 Medical Decision Making - Medical Decision Making 08/31/17 16:52 Initial DDx is DKA vs Gastroparesis vs. HHONK Viral Gastroenteritis (less likely , no diarrhea) PLAN: 1. CBC, CMP, Mg 2. CBC 3. UA 4. Serum Acetone, VBG 5. IV NS 5. BS Finger Stick Will reassess and consider CT Scan, as per EMR, patient had CT scan in 05/2017 that was unremarkable excepting ovarian cysts. Serum Acetone (-) ruling out DKA. CT Abdomen ordered as patient's pain persists. Patient signed out to Dr. Bruner (Resident) and Dr. Stevens ( Attending) *DC/Admit/Observation/Transfer Diagnosis at time of Disposition: Vomiting Qualifiers: Vomiting type: unspecified Vomiting Intractability: non-intractable Nausea presence: with nausea Qualified Code(s): R11.2 - Nausea with vomiting, unspecified - Discharge Dispostion Disposition: HOME - Patient Instructions Printed Discharge Instructions: DI for Hyperglycemia -- Adult Additional Instructions: Follow up with your primary doctor within 1 week. Return to the emergency department if you have any new, worsening, or concerning symptoms. Print Language: BENGALI - Post Discharge Activity Forms/Work/School Notes: Back to Work, Parent(s) Back to Work Note
--- NOTE | 2017-08-31 14:09 | PDOC ---
Attending Attestation - Resident Resident Name: TcAundrea - ED Attending Attestation I have performed the following: I have examined & evaluated the patient, The case was reviewed & discussed with the resident, I agree w/resident's findings & plan, Exceptions are as noted - HPI HPI: 32 yo F history DM2 (onset after she had gestational diabetes) presents with nausea, vomiting, diffuse abdominal pain. She states that she has had 5-6 days of nausea and vomiting. She tried to eat rice, but she could not keep it down. She states she feels dehydrated and uncomfortable at present, her breathing feels heavy. She states her symptoms are similar to when she had DKA, when she was first diagnosed with diabetes. Denies fever, dysuria, polyuria. - Physicial Exam PE: GENERAL: Awake, alert, and fully oriented. Appears tachypneic and uncomfortable. HEAD: No signs of trauma EYES: PERRLA, EOMI, sclera anicteric, conjunctiva clear ENT: Auricles normal inspection, hearing grossly normal, nares patent, oropharynx clear without exudates. Dry mucosa NECK: Normal ROM, supple, no lymphadenopathy, JVD, or masses LUNGS: Breath sounds equal, clear to auscultation bilaterally. No wheezes, and no crackles HEART: Regular rate and rhythm, normal S1 and S2, no murmurs, rubs or gallops ABDOMEN: Soft, nontender, normoactive bowel sounds. No guarding, no rebound. No masses EXTREMITIES: Normal range of motion, no edema. No clubbing or cyanosis. No cords, erythema, or tenderness NEUROLOGICAL: Cranial nerves II through XII grossly intact. Normal speech, normal gait SKIN: Warm, Dry, normal turgor, no rashes or lesions noted. - Medical Decision Making Pt presenting with N/V, elevated blood sugar. DDx includes DKA, gastroenteritis , colitis, UTI. Will obtain labs including serum acetone, UA. Will aggressively hydrate.
[2017-08-31] MEDS ORDERED: SODIUM CHLORIDE 0.9% 1000 ML INFUS.BAG IV ONE ×2 (14:27→16:21)
[2017-08-31 15:03] LABS: BASOPHIL 0.3 % (0-2.0); EOSINOPHIL 0.2 % (0-4.5); MCH 28.1 pg (25.7-33.7); MCHC 33.1 g/dl (32.0-36.0); MEAN PLT VOLUME 8.9 fl (7.5-11.1); NEUTROPHILS 79.9 % (42.8-82.8); PLATELET COUNT 284 K/MM3 (134-434); RDW 13.6 % (11.6-15.6); WHITE BLOOD COUNT 10.5 K/mm3 (4.0-10.0)
[2017-08-31 15:04] LABS: URINE APPEARANCE SLCLOUDY; URINE BILIRUBIN NEGATIVE (NEGATIVE); URINE BLOOD NEGATIVE (NEGATIVE); URINE COLOR LTYELLOW; URINE GLUCOSE (UA) 3+ (NEGATIVE); URINE KETONE 2+ (NEGATIVE); URINE NITRITE NEGATIVE (NEGATIVE); URINE PROTEIN NEGATIVE (NEGATIVE); URINE UROBILINOGEN NEGATIVE mg/dL (0.2-1.0)
[2017-08-31 15:07] LABS: VENOUS BLOOD GAS HCO3 25.6 meq/L (19-25); VENOUS PH 7.52 (7.32-7.42)
[2017-08-31 15:18] LABS: ALK PHOS 93 U/L (45-117); ANION GAP 13 (8-16); BILIRUBIN,TOTAL 0.6 mg/dL (0.2-1.0); CALCIUM 9.3 mg/dL (8.5-10.1); CO2 24 mmol/L (21-32); CREATININE 0.8 mg/dL (0.55-1.02); SGPT/ALT 22 U/L (12-78); TOT PROT 7.9 g/dl (6.4-8.2)
[2017-08-31 15:20] LABS: MAGNESIUM 1.9 mg/dL (1.8-2.4); SGOT/AST 16 U/L (15-37)
[2017-08-31] MEDS ORDERED: ACETAMINOPHEN 325 MG TABLET (FP) ONE (15:20)
[2017-08-31 15:21] LABS: GLUCOSE,RANDOM 362 mg/dL (74-106)
[2017-08-31] MEDS ORDERED: SODIUM CHLORIDE 0.9% 500 ML INFUS.BAG IV ONE (16:24)
[2017-08-31] MEDS ORDERED: ACETAMINOPHEN 500 MG TABLET (FP) PO ONE (16:38)
[2017-08-31] MEDS ORDERED: ONDANSETRON 4 MG/2 ML VIAL IVPB ONE (16:43)
[2017-08-31] MEDS ORDERED: ONDANSETRON 4 MG/2 ML VIAL ONE ×2 (16:45→17:18)
[2017-08-31] MEDS ORDERED: IBUPROFEN 800 MG/8 ML IJ IVPB ONE ×2 (16:45→16:46)
[2017-08-31] MEDS ORDERED: FAMOTIDINE 20 MG/50 ML IVPB 50 ML IVPB ONE ×2 (16:46→16:55)
[2017-08-31] MEDS ORDERED: METOCLOPRAMIDE HCL INJECTION 10 MG/2 ML VIAL IVPB ONE (17:24)
[2017-08-31] MEDS ORDERED: METOCLOPRAMIDE HCL INJECTION 10 MG/2 ML VIAL ONE (17:24)
--- NOTE | 2017-08-31 19:25 | PDOC ---
*Physical Exam - Vital Signs Last Vital Signs Temp Pulse Resp BP Pulse Ox 97.7 F 99 H 20 137/90 100 08/31/17 13:50 08/31/17 14:00 08/31/17 14:00 08/31/17 14:00 08/31/17 14:30 ED Treatment Course - LABORATORY CBC & Chemistry Diagram: 08/31/17 14:50 08/31/17 14:50 - ADDITIONAL ORDERS Additional order review: Laboratory Results 08/31/17 08/31/17 08/31/17 16:39 16:18 15:23 VBG pH POC VBG pCO2 POC VBG pO2 Mixed VBG HCO3 Sodium Potassium Chloride Carbon Dioxide Anion Gap BUN Creatinine Creat Clearance w eGFR POC Glucometer [phone] Random Glucose Calcium Magnesium Total Bilirubin AST ALT Alkaline Phosphatase Total Protein Albumin Serum , Qual Negative Urine Color Urine Appearance Urine pH Urine Protein Urine Glucose (UA) Urine Ketones Urine Blood Urine Nitrite Urine Bilirubin Urine Urobilinogen Acetone, Qual Negative L 08/31/17 08/31/17 08/31/17 15:00 14:50 14:50 VBG pH 7.52 H POC VBG pCO2 31.2 L POC VBG pO2 26.4 L Mixed VBG HCO3 25.6 H Sodium 135 L Potassium 4.0 Chloride 98 Carbon Dioxide 24 Anion Gap 13 BUN 7 Creatinine 0.8 Creat Clearance w eGFR > 60 POC Glucometer Random Glucose 362 H* D Calcium 9.3 Magnesium 1.9 Total Bilirubin 0.6 D AST 16 D ALT 22 Alkaline Phosphatase 93 Total Protein 7.9 Albumin 4.0 Serum , Qual Urine Color Ltyellow Urine Appearance Slcloudy Urine pH 8.0 Urine Protein Negative Urine Glucose (UA) 3+ H Urine Ketones 2+ H Urine Blood Negative Urine Nitrite Negative Urine Bilirubin Negative Urine Urobilinogen Negative Acetone, Qual 08/31/17 08/31/17 16:18 14:50 RBC 5.25 H MCV 85.0 MCHC 33.1 RDW 13.6 MPV 8.9 Neutrophils % 79.9 Lymphocytes % 12.1 Monocytes % 7.5 Eosinophils % 0.2 Basophils % 0.3 POC Glucometer [phone] - Medications Given in the ED: ED Medications Discontinued Medications Generic Name Dose Route Start Last Admin Trade Name Freq PRN Reason Stop Dose Admin Acetaminophen 1,000 mg 08/31/17 16:38 08/31/17 15:20 Tylenol - PO 08/31/17 16:39 1,000 mg ONCE ONE Administration Famotidine/Sodium Chloride 50 mls @ 100 mls/hr 08/31/17 16:55 08/31/17 16:56 Pepcid 20 Mg Premixed Ivpb - IVPB 08/31/17 17:24 100 mls/hr ONCE ONE Administration Ibuprofen 800 mg 08/31/17 16:45 08/31/17 17:05 Caldolor Injection - IVPB 08/31/17 16:46 800 mg ONCE ONE Administration Metoclopramide HCl 10 mg 08/31/17 17:24 08/31/17 17:27 Reglan Injection - IVPB 08/31/17 17:25 10 mg ONCE ONE Administration Ondansetron HCl 4 mg 08/31/17 16:43 08/31/17 16:55 Zofran Injection IVPB 08/31/17 16:44 4 mg ONCE ONE Administration Sodium Chloride 1,000 ml 08/31/17 14:27 08/31/17 15:00 Normal Saline - IV 08/31/17 14:28 1,000 ml ONCE ONE Administration Sodium Chloride 1,000 ml 08/31/17 16:21 08/31/17 16:37 Normal Saline - IV 08/31/17 16:22 1,000 ml ONCE ONE Administration Sodium Chloride 1,000 ml 08/31/17 16:24 08/31/17 19:14 Normal Saline - IV 08/31/17 16:25 1,000 ml ONCE ONE Administration Medical Decision Making - Medical Decision Making 08/31/17 19:25 Care taken over from Dr. Montez. Represents for same Tuesday complaint. *DC/Admit/Observation/Transfer Diagnosis at time of Disposition: Vomiting Qualifiers: Vomiting type: unspecified Vomiting Intractability: non-intractable Nausea presence: with nausea Qualified Code(s): R11.2 - Nausea with vomiting, unspecified; R11.2 - Nausea with vomiting, unspecified - Discharge Dispostion Disposition: HOME - Patient Instructions Printed Discharge Instructions: DI for Hyperglycemia -- Adult
[2017-08-31 19:58] VITALS: BP 134/74; PULSE 85; TEMP 98.1
[2017-08-31 21:18] LABS: URINE LEUK ESTERASE 1+ (NEGATIVE)
[2017-08-31 21:41] LABS: URINE BACTERIA FEW /hpf (NEGATIVE)
[2017-08-31] MEDS ORDERED: FAMOTIDINE 20 MG/50 ML IVPB 50 ML IVPB SCH (22:00)
--- NOTE | 2017-09-01 01:43 | PDOC ---
*Physical Exam - Vital Signs Last Vital Signs Temp Pulse Resp BP Pulse Ox 98.1 F 85 20 134/74 98 08/31/17 19:57 08/31/17 19:57 08/31/17 19:57 08/31/17 19:57 08/31/17 19:57 ED Treatment Course - LABORATORY CBC & Chemistry Diagram: 08/31/17 14:50 08/31/17 14:50 - ADDITIONAL ORDERS Additional order review: Laboratory Results 08/31/17 08/31/17 08/31/17 16:39 16:18 15:23 VBG pH POC VBG pCO2 POC VBG pO2 Mixed VBG HCO3 Sodium Potassium Chloride Carbon Dioxide Anion Gap BUN Creatinine Creat Clearance w eGFR POC Glucometer [phone] Random Glucose Calcium Magnesium Total Bilirubin AST ALT Alkaline Phosphatase Total Protein Albumin Serum , Qual Negative Urine Color Urine Appearance Urine pH Ur Specific [place] Urine Protein Urine Glucose (UA) Urine Ketones Urine Blood Urine Nitrite Urine Bilirubin Urine Urobilinogen Ur Leukocyte Esterase Urine RBC Urine WBC Ur Epithelial Cells Urine Bacteria Acetone, Qual Negative L 08/31/17 08/31/17 08/31/17 15:00 14:50 14:50 VBG pH 7.52 H POC VBG pCO2 31.2 L POC VBG pO2 26.4 L Mixed VBG HCO3 25.6 H Sodium 135 L Potassium 4.0 Chloride 98 Carbon Dioxide 24 Anion Gap 13 BUN 7 Creatinine 0.8 Creat Clearance w eGFR > 60 POC Glucometer Random Glucose 362 H* D Calcium 9.3 Magnesium 1.9 Total Bilirubin 0.6 D AST 16 D ALT 22 Alkaline Phosphatase 93 Total Protein 7.9 Albumin 4.0 Serum , Qual Urine Color Ltyellow Urine Appearance Slcloudy Urine pH 8.0 Ur Specific [place] 1.015 Urine Protein Negative Urine Glucose (UA) 3+ H Urine Ketones 2+ H Urine Blood Negative Urine Nitrite Negative Urine Bilirubin Negative Urine Urobilinogen Negative Ur Leukocyte Esterase 1+ H Urine RBC 2-3 Urine WBC 5-10 Ur Epithelial Cells Few Urine Bacteria Few Acetone, Qual 08/31/17 08/31/17 16:18 14:50 RBC 5.25 H MCV 85.0 MCHC 33.1 RDW 13.6 MPV 8.9 Neutrophils % 79.9 Lymphocytes % 12.1 Monocytes % 7.5 Eosinophils % 0.2 Basophils % 0.3 POC Glucometer [phone] - Medications Given in the ED: ED Medications Discontinued Medications Generic Name Dose Route Start Last Admin Trade Name Marimar PRN Reason Stop Dose Admin Acetaminophen 1,000 mg 08/31/17 16:38 08/31/17 15:20 Tylenol - PO 08/31/17 16:39 1,000 mg ONCE ONE Administration Famotidine/Sodium Chloride 50 mls @ 100 mls/hr 08/31/17 16:55 08/31/17 16:56 Pepcid 20 Mg Premixed Ivpb - IVPB 08/31/17 17:24 100 mls/hr ONCE ONE Administration Ibuprofen 800 mg 08/31/17 16:45 08/31/17 17:05 Caldolor Injection - IVPB 08/31/17 16:46 800 mg ONCE ONE Administration Metoclopramide HCl 10 mg 08/31/17 17:24 08/31/17 17:27 Reglan Injection - IVPB 08/31/17 17:25 10 mg ONCE ONE Administration Ondansetron HCl 4 mg 08/31/17 16:43 08/31/17 16:55 Zofran Injection IVPB 08/31/17 16:44 4 mg ONCE ONE Administration Sodium Chloride 1,000 ml 08/31/17 14:27 08/31/17 15:00 Normal Saline - IV 08/31/17 14:28 1,000 ml ONCE ONE Administration Sodium Chloride 1,000 ml 08/31/17 16:21 08/31/17 16:37 Normal Saline - IV 08/31/17 16:22 1,000 ml ONCE ONE Administration Sodium Chloride 1,000 ml 08/31/17 16:24 08/31/17 19:14 Normal Saline - IV 08/31/17 16:25 1,000 ml ONCE ONE Administration Medical Decision Making - Medical Decision Making 09/01/17 01:42 Pt signed out to me by Dr. Costa pending CTAP. CTAP with no acute findings. Pt reports improvement in symptoms, was able to tolerate PO and requests DC. Symptoms possible due to gastroenteritis. I discussed the physical exam findings , ancillary test results and final diagnoses with the patient. I answered all of the patient's questions. The patient was satisfied with the care received and felt comfortable with the discharge plan and treatment plan. The patient will call their primary care physician within 24 hours to arrange follow-up and will return to the Emergency Department with any new, persistent or worsening symptoms. *DC/Admit/Observation/Transfer Diagnosis at time of Disposition: Vomiting Qualifiers: Vomiting type: unspecified Vomiting Intractability: non-intractable Nausea presence: with nausea Qualified Code(s): R11.2 - Nausea with vomiting, unspecified - Discharge Dispostion Disposition: HOME - Referrals - Patient Instructions Printed Discharge Instructions: DI for Hyperglycemia -- Adult Additional Instructions: Follow up with your primary doctor within 1 week. Return to the emergency department if you have any new, worsening, or concerning symptoms. Print Language: KOSOVAN - Post Discharge Activity Forms/Work/School Notes: Back to Work, Parent(s) Back to Work Note
--- NOTE | 2017-09-01 11:56 | EKG ---
Test Reason : Blood Pressure : / mmHG Vent. Rate : 066 BPM Atrial Rate : 066 BPM P-R Int : 144 ms QRS Dur : 078 ms QT Int : 422 ms P-R-T Axes : 037 043 020 degrees QTc Int : 442 ms NORMAL SINUS RHYTHM NORMAL ECG WHEN COMPARED WITH ECG OF 26-AUG-2017 11:45, NO SIGNIFICANT CHANGE WAS FOUND Confirmed by MALIK WILSON MD ([id number]) on 09/01/2017 11:56:32 AM Referred By: Confirmed By:MALIK WILSON MD
== END 2017-08-31 20:05 | disposition home or self-care (01) ==
LOC: JER 13:48
PROC: 3E033GC Introduction of Other Therapeutic Substance into Peripheral Vein, Percutaneous Approach (ICD-10-PCS; principal; 2017-08-31)
PROC: 3E0337Z Introduction of Electrolytic and Water Balance Substance into Peripheral Vein, Percutaneous Approach (ICD-10-PCS; 2017-08-31)
DX: R11.2 Nausea with vomiting, unspecified (principal)
CPT/HCPCS: 36415; 74177-TC; 80053; 81003; 81015; 82009; 82803; 83735; 84703; 85025; 93005; 93010; 99284-25

== ENCOUNTER 2017-11-07 13:46 | Emergency (ER) | payer OTHER ==
[2017-11-07 13:53] VITALS: BP 142/85; PULSE 110; TEMP 98.3; BMI 24.3
[2017-11-07] MEDS ORDERED: SODIUM CHLORIDE 1,000 ML IV STA ×2 (15:33→15:34)
[2017-11-07] MEDS ORDERED: METOCLOPRAMIDE HCL INJECTION 10 MG/2 ML VIAL IVPUSH ONE (15:35)
--- NOTE | 2017-11-07 15:38 | PDOC ---
History of Present Illness - General Chief Complaint: Blood Sugar Problem Stated Complaint: BLOOD SUGAR PROBLEM, WEAKNESS Time Seen by Provider: 11/07/17 14:53 History Source: Patient Exam Limitations: No Limitations - History of Present Illness Initial Comments: 11/07/17 15:36 Pt is a 32F w/ PMH IDDM (on Insulin) w/ single episode of DKA 7 years ago at time of diagnosis, gestational DM who presents to ED with nausea, malaise, nonbloody bilious vomiting, increased fluid intake, and decreased appetite. Per pt, condition got worse about 4 months ago when she started having recurrent bouts of similar symptoms. She has been seen by GI and had Abd/Pelv CT and EGD, which were both unremarkable per pt. Pt went to fruit trimmer donn who reportedly diagnosed ketonuria at that time. Her fruit trimmer urged her to visit the ED, but because of social issues, the pt did not come in until today. LMP 2 weeks ago. Denies dyspareunia, increased bleeding, spotting. At this time, pt is alert, oriented, in NAD, hemodynamically stable, and afebrile. Past History - Past Medical History Allergies/Adverse Reactions: Allergies Allergy/AdvReac Type Severity Reaction Status Date / Time shellfish derived Allergy Verified 11/07/17 13:53 Home Medications: Ambulatory Orders Insulin Glargine,Hum.rec.anlog [Lantus Solostar PEN (NF)] 50 units SQ BID Metformin HCl 850 mg PO DAILY 06/24/16 Insulin Lispro [Humalog] 10 units SQ PRN 08/31/17 COPD: No Diabetes: Yes Hypercholesterolemia: Yes - Surgical History Abdominal Surgery: Yes Cholecystectomy: Yes - Suicide/Smoking/Psychosocial Hx Smoking History: Current every day smoker Have you smoked in the past 12 months: Yes Number of Cigarettes Smoked Daily: 1 Information on smoking cessation initiated: Yes 'Breaking Loose' booklet given: 11/07/17 Hx Alcohol Use: Yes (occasional) Drug/Substance Use Hx: No Substance Use Type: None Review of Systems - Review of Systems Able to Perform ROS?: Yes Is the patient limited Dutch proficient: No Constitutional: Yes: Symptoms Reported, Chills, Diaphoresis, Loss of Appetite, Malaise, Weakness HEENTM: Yes: Symptoms Reported, See HPI Respiratory: Yes: Symptoms reported, See HPI. No: Cough, Shortness of Breath, SOB with Exertion, Wheezing, Productive cough Cardiac (ROS): Yes: Symptoms Reported, See HPI. No: Chest Pain, Edema, Lightheadedness, Palpitations ABD/GI: Yes: Symptoms Reported, See HPI, Constipated, Nausea, Poor Appetite, Vomiting (bilious, nonbloody), Abdominal cramping. No: Abdominal Distended, Abd. Pain w/ defecation, Diarrhea, Indigestion : Yes: Symptoms Reported, See HPI. No: Burning, Dysuria, Discharge, Frequency , Flank Pain, Hematuria, Incontinence, Pain Musculoskeletal: Yes: Symptoms Reported, See HPI, Muscle Pain, Muscle Weakness. No: Joint Swelling, Joint Stiffness Integumentary: Yes: Symptoms Reported, See HPI. No: Bruising, Dryness, Erythema Neurological: Yes: Symptoms reported, See HPI. No: Headache, Numbness, Paresthesia Psychiatric: No: Anxiety, Depression *Physical Exam - Vital Signs Last Vital Signs Temp Pulse Resp BP Pulse Ox 98.3 F 110 H 19 142/85 100 11/07/17 13:50 11/07/17 13:50 11/07/17 13:50 11/07/17 13:50 11/07/17 13:50 - Physical Exam General Appearance: Yes: Appropriately Dressed, Apparent Distress (pt uncomfortable) HEENT: positive: EOMI, SERENE, Normal ENT Inspection, Normal Voice, Pharynx Normal Neck: positive: Trachea midline, Normal Thyroid, Supple. negative: Tender, Rigid, Carotid bruit, Stridor Respiratory/Chest: positive: Lungs Clear, Normal Breath Sounds. negative: Chest Tender, Respiratory Distress, Accessory Muscle Use Cardiovascular: positive: Regular Rhythm, Regular Rate, S1, S2. negative: JVD, Murmur Vascular Pulses: Dorsalis-Pedis (R): 2+, Doralis-Pedis (L): 2+ Gastrointestinal/Abdominal: positive: Normal Bowel Sounds, Flat, Soft. negative : Tender, Organomegaly, Pulsatile Mass, Distended, Guarding, Rebound, Tenderness , Hernia, Mass Neurologic: positive: venue attendant II-XII NML intact, Fully Oriented, Alert, Normal Mood/ Affect, Normal Response, Motor Strength 5/5 ED Treatment Course - LABORATORY CBC & Chemistry Diagram: 11/07/17 16:00 11/07/17 16:00 Medical Decision Making - Medical Decision Making 11/07/17 16:48 Pt is a 32F w/ PMH IDDM w/ DKA on initial diagnosis 7 yr ago who presents to ED with malaise, weakness, decreased PO intake, polydypsia, and polyuria. Per pt this problem has been recurrent and unresolved for the last 4 months. PE unremarkable. DDx: DKA, Gastroparesis At this time, pt is afebrile, in some discomfort 2/2 generalized pain, hemodynamically stable. -CBC -CMP -serum acetone -Lipase -UA -VBG -2L NS -Chlorpromazine (pt does not tolerate zofran or reglan) -Preg test -K-dur 11/07/17 17:00 Pt now complaining of CP like "an elephant is sitting on my chest". Pt has no other cardiac risk factors. -EKG 11/07/17 17:56 Spoke with pt's GI (Dr. Kelley) at 5:45PM who informed me that he has been working the pt up extensively trying to find the source of her symptoms and has , as of yet, been unable to find a definitive cause. He stated that he recently gave the pt H. pylori therapy and had plans to send her for gastric emptying study with possible referral to a motility specialist. Pt stated at 5:55 PM that she had an issue with her children and needed to leave. It was explained to the pt that her electrolytes were abnormal and she needed medication. It was also explained that based on her new complaint of chest pain, she needed an EKG and possibly more workup. Pt expressed understanding, and repeated that she wanted to leave. Pt signed AMA form at 5: 55PM. *DC/Admit/Observation/Transfer Diagnosis at time of Disposition: Gastroparesis DKA (diabetic ketoacidoses) Qualifiers: Diabetes mellitus type: type 1 Diabetes mellitus complication detail: without coma Qualified Code(s): E10.10 - Type 1 diabetes mellitus with ketoacidosis without coma - Referrals Referrals: Cathy Centeno MD [Primary Care Provider] - - Patient Instructions - Post Discharge Activity
--- NOTE | 2017-11-07 15:44 | PDOC ---
Attending Attestation - Resident Resident Name: Wesley Tomas - ED Attending Attestation I have performed the following: I have examined & evaluated the patient, The case was reviewed & discussed with the resident, I agree w/resident's findings & plan, Exceptions are as noted - HPI HPI: 11/07/17 15:39 32-year-old female with type 1 diabetes on insulin presents with exacerbation of GI complaints that have been ongoing for the past 1-2 months. Constant abdominal discomfort with bilious nonbloody vomiting, multiple ED visits revealed labs within normal limits and no acute abnormality on CAT scans. Patient was seen by a deputy director of public works and had an endoscopy that was reportedly unremarkable, gastroparesis with gastric emptying studies was discussed but not yet scheduled. 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 - Physicial Exam PE: 11/07/17 15:40 slight tachycardia at triage, now resolved while lying in stretcher. Afebrile. Dry mucosa, no jaundice or pallor Abdomen is soft/nontender/nondistended, no guarding or rebound - Medical Decision Making 11/07/17 15:41 Patient seen and evaluated with the resident. I agree with the overall evaluation, assessment, and management with the following summary of visit: 32-year-old female with type 1 diabetes and recurring vomiting, here with persistent symptoms and dehydration. Rule out DKA, seems most consistent with gastroparesis, abdominal exam has no peritoneal findings. Labs including acetone and a vbg IV fluids, anti-emetic (has had very negative reactions to reglan and zofran), can trial thorazine check UA and urine preg reassess
[2017-11-07] MEDS ORDERED: chlorproMAZINE HCL 25 MG/1 ML AMP IM PRN (15:45)
[2017-11-07] MEDS ORDERED: METOCLOPRAMIDE HCL INJECTION 10 MG/2 ML VIAL ONE (16:09)
[2017-11-07] MEDS ORDERED: FAMOTIDINE 20 MG/50 ML IVPB 20 MG/50 ML MG IVPB ONE (16:10)
[2017-11-07] MEDS ORDERED: chlorproMAZINE HCL 25 MG/1 ML AMP ONE (16:10)
[2017-11-07 16:13] LABS: BASO % 0.6 % (0-2.0); EOS % 0.7 % (0-4.5); MCH 28.8 pg (25.7-33.7); MCHC 34.2 g/dl (32.0-36.0); MEAN CELL VOLUME 84.4 fl (80-96); MEAN PLT VOLUME 8.1 fl (7.5-11.1); NEUT % 72.4 % (42.8-82.8); PLATELET COUNT 337 K/MM3 (134-434); RDW 14.2 % (11.6-15.6); WHITE BLOOD COUNT 10.7 K/mm3 (4.0-10.0)
[2017-11-07 16:17] LABS: VENOUS BLOOD GAS HCO3 30.3 meq/L (19-25); VENOUS PH 7.45 (7.32-7.42)
[2017-11-07 16:35] LABS: ALBUMIN 3.8 g/dl (3.4-5.0); ALK PHOS 89 U/L (45-117); ANION GAP 6 (8-16); BILIRUBIN,TOTAL 0.9 mg/dL (0.2-1.0); CALCIUM 8.9 mg/dL (8.5-10.1); CO2 30 mmol/L (21-32); CREATININE 0.5 mg/dL (0.55-1.02); GLUCOSE,RANDOM 114 mg/dL (74-106); MAGNESIUM 2.2 mg/dL (1.8-2.4); PHOSPHOROUS 2.7 mg/dL (2.5-4.9); SGOT/AST 21 U/L (15-37); SGPT/ALT 37 U/L (12-78); TOT PROT 7.3 g/dl (6.4-8.2)
[2017-11-07] MEDS ORDERED: POTASSIUM CHLORIDE ORAL LIQUID 20 MEQ/15 ML PO ONE (16:51)
[2017-11-07 17:04] LABS: URINE APPEARANCE SLCLOUDY; URINE BILIRUBIN NEGATIVE (NEGATIVE); URINE BLOOD NEGATIVE (NEGATIVE); URINE COLOR YELLOW; URINE GLUCOSE (UA) 3+ (NEGATIVE); URINE KETONE TRACE (NEGATIVE); URINE LEUK ESTERASE NEGATIVE (NEGATIVE); URINE NITRITE NEGATIVE (NEGATIVE)
[2017-11-07 17:20] LABS: URINE PROTEIN 1+ (NEGATIVE)
[2017-11-07 17:22] LABS: URINE MUCUS MANY; URINE RBC 2 /hpf (0-3); URINE WBC 3 /hpf (3-5)
[2017-11-07] MEDS ORDERED: POTASSIUM CHLORIDE TABS 20 MEQ TABLET.ER (FP) PO ONE (17:57)
[2017-11-07 20:30] LABS: URINE LEUK ESTERASE Negative (NEGATIVE)
[2017-11-07] MEDS ORDERED: FAMOTIDINE IV 20 MG/12 ML VIAL IVPUSH SCH (22:00)
== END 2017-11-07 18:00 | disposition left against medical advice (07) ==
LOC: JER 13:46
PROC: 3E0337Z Introduction of Electrolytic and Water Balance Substance into Peripheral Vein, Percutaneous Approach (ICD-10-PCS; principal; 2017-11-07)
PROC: 3E033GC Introduction of Other Therapeutic Substance into Peripheral Vein, Percutaneous Approach (ICD-10-PCS; 2017-11-07)
PROC: 3E033GC Introduction of Other Therapeutic Substance into Peripheral Vein, Percutaneous Approach (ICD-10-PCS; 2017-11-07)
PROC: 3E023GC Introduction of Other Therapeutic Substance into Muscle, Percutaneous Approach (ICD-10-PCS; 2017-11-07)
DX: K31.84 Gastroparesis (principal); E10.10 Type 1 diabetes mellitus with ketoacidosis without coma; Z79.4 Long term (current) use of insulin; Z79.84 Long term (current) use of oral hypoglycemic drugs; E78.00 Pure hypercholesterolemia, unspecified; F17.210 Nicotine dependence, cigarettes, uncomplicated
CPT/HCPCS: 36415; 80053; 81003; 81015; 82009; 82803; 83690; 83735; 84100; 85025; 96361; 96372; 96374; 96375; 99282-25

== ENCOUNTER 2017-11-10 10:52 | Emergency (ER) | payer OTHER ==
[2017-11-10 11:04] VITALS: BP 123/76; PULSE 93; TEMP 97.9; BMI 24.3
--- NOTE | 2017-11-10 11:55 | PDOC ---
Attending Attestation - Resident Resident Name: Honorio Brothers - HPI HPI: 11/10/17 13:46 Pt presents to the ED complaining of a several month history of nausea, vomiting and epigastric abdominal pain. Symptoms have been unchanged for several months, and patient has had extensive negative work up. She is currently waiting for a gastric emptying study. Also complaining of chest pain that has been intermittent for a week. Denies fever. Denies shortness of breath. - Physicial Exam PE: 11/10/17 14:03 agree with resident exam. Patient is tearful, and has an emesis basin with about 200 cc of bilious vomit. Abdomen is diffusely tender without guarding or rebound. - Medical Decision Making 11/10/17 14:05 Pt presents to the the ED complainin gof chest pain and abdominal pain without nausea or vomiting. Patient is afebrile. extensive negative prior work up. Plan was to check labs to rule out electrolyte disturbance or CHF, but patient eloped from the ED. patient understood that she was to stay for further work up.
[2017-11-10] MEDS ORDERED: SODIUM CHLORIDE 1,000 ML IV STA (12:43)
[2017-11-10] MEDS ORDERED: METOCLOPRAMIDE HCL INJECTION 10 MG/2 ML VIAL IVPUSH ONE (12:43)
[2017-11-10] MEDS ORDERED: ACETAMINOPHEN 1000 MG/100 ML VIAL (NON FORMULARY) IVPB ONE (12:43)
[2017-11-10] MEDS ORDERED: ACETAMINOPHEN INJECTION 100 ML IVPB ONE (12:54)
[2017-11-10] MEDS ORDERED: METOCLOPRAMIDE HCL INJECTION 10 MG/2 ML VIAL ONE (12:54)
--- NOTE | 2017-11-10 13:10 | PDOC ---
History of Present Illness - General Chief Complaint: Pain, Acute Stated Complaint: WEAKNESS, ABD PAIN, VOMITING Time Seen by Provider: 11/10/17 11:49 - History of Present Illness Initial Comments: 11/10/17 13:37 The patient is a 32 year old female with a history of IDDM who presents for evaluation of abdominal pain, nausea, and vomiting. The patient reports daily symptoms of abdominal pain, nausea, and multiple episodes of vomiting over the past 2 months. She has been seen multiple times in the ED for similar symptoms with concerns for gastroparesis. She is followed by a GI specialist and has had negative endoscopies and CT scans in the past. Her most recent CT scan was in september 06 which was read as no acute process at that time. She reports that over the past few days she has also been experiencing chest pressure which was concerning to her in addition to severe abdominal pain. She denies fevers, chills, SOB, or changes with urination or bowel movements. Past History - Past Medical History Allergies/Adverse Reactions: Allergies Allergy/AdvReac Type Severity Reaction Status Date / Time shellfish derived Allergy Verified 11/10/17 11:00 Home Medications: Ambulatory Orders Insulin Glargine,Hum.rec.anlog [Lantus Solostar PEN (NF)] 50 units SQ BID Insulin Lispro [Humalog] 10 units SQ PRN 08/31/17 CVA: No COPD: No Diabetes: Yes Hypercholesterolemia: Yes - Surgical History Abdominal Surgery: Yes Cholecystectomy: Yes - Immunization History Immunization Up to Date: Yes - Suicide/Smoking/Psychosocial Hx Smoking History: Current every day smoker Have you smoked in the past 12 months: Yes Number of Cigarettes Smoked Daily: 3 Information on smoking cessation initiated: No 'Breaking Loose' booklet given: 11/07/17 Hx Alcohol Use: No Drug/Substance Use Hx: No Substance Use Type: None Review of Systems - Review of Systems Comments:: 11/10/17 13:47 Constitutional: No fevers, chills, fatigue, malaise HEENT: No Rhinorrhea, nasal congestion, visual changes Cardiovascular: Chest pain. No syncope, palpitations, lightheadedness Respiratory: No Cough, SOB, Hemoptysis, Gastrointestinal: Abdominal pain, nausea, vomiting. No Constipation, Diarrhea, Melena Genitourinary: No Dysuria, Frequency, Urgency, Hesitancy, Hematuria, Flank pain Musculoskeletal: No Myalgia, arthralgia Skin: No rashes, bruising, pallor Neurologic: No Headache, Dizziness, Numbness, Weakness, or Tingling Psychiatric: No Hallucinations. No SI or HI *Physical Exam - Vital Signs Last Vital Signs Temp Pulse Resp BP Pulse Ox 97.9 F 93 H 17 123/76 98 11/10/17 11:00 11/10/17 11:00 11/10/17 11:00 11/10/17 11:00 11/10/17 11:00 - Physical Exam Comments: 11/10/17 13:48 General Appearance: Nourished. No Apparent Distress HEENT: EOMI, SERENE. No Pharyngeal Erythema, Tonsillar Exudate, Tonsillar Erythema Neck: No Cervical Lymphadenopathy Respiratory/Chest: Lungs Clear, Normal Breath Sounds. No Crackles, Rales, Rhonchi, Wheezing Cardiovascular: Regular Rhythm, Regular Rate. No Murmur, Gallops, Rubs Gastrointestinal/Abdominal: Normal Bowel Sounds, Soft. Diffuse tenderness to palpation. No Rebound, Musculoskeletal: No CVA Tenderness Extremity: Normal Capillary Refill Integumentary: Normal Color, Dry, Warm Neurologic: Fully Oriented, Alert, Normal Mood/Affect, Normal Response, ED Treatment Course - LABORATORY CBC & Chemistry Diagram: 11/10/17 12:55 11/10/17 12:55 - ADDITIONAL ORDERS Additional order review: Laboratory Results 11/10/17 11:46 POC Glucometer [id number] 11/10/17 11:46 POC Glucometer [id number] - Medications Given in the ED: ED Medications Discontinued Medications Generic Name Dose Route Start Last Admin Trade Name Marimar PRN Reason Stop Dose Admin Acetaminophen 1,000 mg 11/10/17 12:43 11/10/17 12:57 Ofirmev Injection - IVPB 11/10/17 12:44 1,000 mg ONCE ONE Administration Metoclopramide HCl 10 mg 11/10/17 12:43 11/10/17 12:57 Reglan Injection - IVPUSH 11/10/17 12:44 10 mg ONCE ONE Administration Medical Decision Making - Medical Decision Making 11/10/17 12:53 The patient is a 32 year old female with a history of IDDM who presents for evaluation of abdominal pain, nausea, and vomiting. Differential includes but is not limited to: Gastroparesis, ACS, infectious, metabolic derangement. Given her similar presentations in the past, it is likely the patient's symptoms are due to gastroparesis. However, her chest pain has not been worked up in the past and is a new symptoms. We will obtain a cbc, cmp, troponin, ekg , and chest plain film to evaluate for other etiologies. We will treat the patient with iv fluids, pepcid, and reglan. We will continue to monitor and reassess. 11/10/17 14:01 Patient eloped before evaluation was completed. Lab results were unremarkable. IV was removed at the time of elopement. She was alert and ambulatory at the time of elopement. *DC/Admit/Observation/Transfer Diagnosis at time of Disposition: Gastroparesis Vomiting Qualifiers: Vomiting type: unspecified Vomiting Intractability: unspecified Nausea presence : unspecified Qualified Code(s): R11.10 - Vomiting, unspecified - Discharge Dispostion Disposition: ELOPED Condition at time of disposition: Good Admit: No - Referrals - Patient Instructions - Post Discharge Activity
[2017-11-10] MEDS ORDERED: FAMOTIDINE 20 MG/50 ML IVPB 20 MG/50 ML MG IVPB ONE ×2 (13:22→13:30)
[2017-11-10 13:23] LABS: BASO % 0.7 % (0-2.0); EOS % 0.2 % (0-4.5); MCH 28.2 pg (25.7-33.7); MCHC 32.7 g/dl (32.0-36.0); MEAN CELL VOLUME 86.2 fl (80-96); MEAN PLT VOLUME 9.3 fl (7.5-11.1); NEUT % 76.9 % (42.8-82.8); PLATELET COUNT 337 K/MM3 (134-434); WHITE BLOOD COUNT 9.8 K/mm3 (4.0-10.0)
[2017-11-10 13:26] LABS: ANION GAP 9 (8-16); BILIRUBIN,TOTAL 0.8 mg/dL (0.2-1.0); CO2 30 mmol/L (21-32); CREATININE 0.6 mg/dL (0.55-1.02); GLUCOSE,RANDOM 186 mg/dL (74-106); SGOT/AST 12 U/L (15-37); SGPT/ALT 29 U/L (12-78); TOT PROT 7.7 g/dl (6.4-8.2)
[2017-11-10 13:29] LABS: ALK PHOS 90 U/L (45-117); CPK 151 IU/L (26-192); TROPONIN I < 0.02 ng/ml (0.00-0.05)
--- NOTE | 2017-11-10 16:29 | EKG ---
Test Reason : Blood Pressure : / mmHG Vent. Rate : 064 BPM Atrial Rate : 064 BPM P-R Int : 140 ms QRS Dur : 082 ms QT Int : 420 ms P-R-T Axes : 025 058 044 degrees QTc Int : 433 ms NORMAL SINUS RHYTHM NORMAL ECG WHEN COMPARED WITH ECG OF 31-AUG-2017 15:07, NO SIGNIFICANT CHANGE WAS FOUND Confirmed by MALIK WILSON MD ([id number]) on 11/10/2017 4:29:04 PM Referred By: Confirmed By:MALIK WILSON MD
== END 2017-11-10 13:35 | disposition left against medical advice (07) ==
LOC: JER 10:52
PROC: 3E033GC Introduction of Other Therapeutic Substance into Peripheral Vein, Percutaneous Approach (ICD-10-PCS; principal; 2017-11-10)
PROC: 3E033GC Introduction of Other Therapeutic Substance into Peripheral Vein, Percutaneous Approach (ICD-10-PCS; 2017-11-10)
PROC: 3E033NZ Introduction of Analgesics, Hypnotics, Sedatives into Peripheral Vein, Percutaneous Approach (ICD-10-PCS; 2017-11-10)
DX: K31.84 Gastroparesis (principal); E10.9 Type 1 diabetes mellitus without complications; Z79.4 Long term (current) use of insulin; F17.210 Nicotine dependence, cigarettes, uncomplicated
CPT/HCPCS: 36415; 80053; 82550; 82553; 83690; 84484; 84703; 85025; 93005; 93010; 99282-25

== ENCOUNTER 2017-12-02 11:07 | Inpatient (IN) | payer OTHER ==
--- NOTE | 2017-12-02 11:49 | PDOC ---
History of Present Illness - General History Source: Patient Exam Limitations: No Limitations - History of Present Illness Initial Comments: 12/02/17 14:36 The patient is a 32-year-old female, with a significant past medical history of diabetes and hypercholesterolemia, who presents to the ED with persistent midsternal chest pain accompanied by nausea and vomiting. The patient states that her symptoms began back in August. She has been following up with her PCP and gastro doctor regularly. Today, the patient had a gastric emptying study done and an abdominal ultrasound. She reports to the ED today for worsening symptoms. She describes her chest pain as constant, pressure-like in sensation, accompanied by shortness of breath. The patient states that her chest pain was thought to be related to anxiety and she was placed on hydroxyzine with no relief of her symptoms. On exam, she reports having a runny nose. She states that she has tried marijuana to see if it would alleviate her symptoms but with no improvement. The patient is sexually active and took a recent test at home that was negative. Allergies: shellfish derived Social History: Social drinker; She denies any tobacco use Freight Booker: Dr. Max Kelley <Kayla Durham - Last Filed: 12/02/17 15:57> <Harman Petersen - Last Filed: 12/02/17 18:56> - General Chief Complaint: Chest Pain Stated Complaint: CHEST PAIN Time Seen by Provider: 12/02/17 11:49 Past History <Kayla Durham - Last Filed: 12/02/17 15:57> - Past Medical History CVA: No COPD: No Diabetes: Yes Hypercholesterolemia: Yes - Surgical History Abdominal Surgery: Yes Cholecystectomy: Yes - Immunization History Immunization Up to Date: Yes - Suicide/Smoking/Psychosocial Hx Smoking History: Current some day smoker Have you smoked in the past 12 months: Yes Number of Cigarettes Smoked Daily: 3 Information on smoking cessation initiated: No 'Breaking Loose' booklet given: 11/07/17 Hx Alcohol Use: No Drug/Substance Use Hx: No Substance Use Type: None <Harman Petersen - Last Filed: 12/02/17 18:56> - Past Medical History Allergies/Adverse Reactions: Allergies Allergy/AdvReac Type Severity Reaction Status Date / Time shellfish derived Allergy Verified 12/02/17 11:24 Home Medications: Ambulatory Orders Insulin Glargine,Hum.rec.anlog [Lantus Solostar PEN (NF)] 50 units SQ BID Insulin Lispro [Humalog] 10 units SQ PRN 08/31/17 Review of Systems - Review of Systems Able to Perform ROS?: Yes Comments:: 12/02/17 14:40 A complete review of 10 out of 10 review of systems is taken and is negative apart from what is previously mentioned below and in the HPI. <Kayla Durham - Last Filed: 12/02/17 15:57> *Physical Exam - Vital Signs Last Vital Signs Temp Pulse Resp BP Pulse Ox 97.3 F L 65 19 155/93 100 12/02/17 11:24 12/02/17 11:24 12/02/17 11:24 12/02/17 11:24 12/02/17 11:24 - Physical Exam Comments: 12/02/17 14:41 Vitals: Triage Vital signs reviewed General Appearance: +The patient appears to be in acute distress. Head: Atraumatic, normocephalic Neck: Supple;No Nuchal rigidity Chest Wall: Nontender Cardiac: Regular rate and rhythm, no murmurs, no rubs, no gallops, Lungs: Clear to auscultation bilateral, good air movement bilaterally, Abdomen: Soft, nondistended, normal bowel sounds, nontender to palpation Rectal: Exam deferred Extremities: Full range of motion to all extremities, no cyanosis, clubbing, or edema Skin: Warm and dry, no rashes or lesions, no petechiae Neuro: AOX3; Cranial Nerves 2-12 grossly intact, Strength intact to all extremities, Sensation intact to all extremities Psych: normal mood, normal affect <Kayla Durham - Last Filed: 12/02/17 15:57> - Vital Signs Last Vital Signs Temp Pulse Resp BP Pulse Ox 97.3 F L 65 19 155/93 100 12/02/17 11:24 12/02/17 11:24 12/02/17 11:24 12/02/17 11:24 12/02/17 11:24 <Harman Petersen - Last Filed: 12/02/17 18:56> Heart Score/ECG Review - ECG Intrepretation Comment:: 12/02/17 15:57 EKG performed at 11:20 demonstrates rate of 59 bpm, rhythm of sinus bradycardia , axis equal to normal, right, or left. Additional findings include: Prolonged QT. <Kayla Durham - Last Filed: 12/02/17 15:57> ED Treatment Course - LABORATORY CBC & Chemistry Diagram: 12/02/17 12:45 12/02/17 12:45 - ADDITIONAL ORDERS Additional order review: Laboratory Results 12/02/17 12:45 Sodium 136 Potassium 2.6 L* Chloride 91 L Carbon Dioxide 31 Anion Gap 14 BUN 9 Creatinine 0.7 Creat Clearance w eGFR > 60 Random Glucose 109 H Calcium 9.7 Total Bilirubin 0.8 AST 24 D ALT 21 D Alkaline Phosphatase 82 Troponin I < 0.02 Total Protein 8.3 H Albumin 4.3 12/02/17 12:45 RBC 5.76 H MCV 84.8 MCHC 32.8 RDW 13.7 MPV 8.9 Neutrophils % 77.2 Lymphocytes % 13.0 Monocytes % 8.8 Eosinophils % 0.6 D Basophils % 0.4 - Medications Given in the ED: ED Medications Discontinued Medications Generic Name Dose Route Start Last Admin Trade Name Marimar PRN Reason Stop Dose Admin Diphenhydramine HCl 25 mg 12/02/17 12:28 12/02/17 12:41 Benadryl Injection - IVPUSH 12/02/17 12:29 25 mg ONCE ONE Administration Metoclopramide HCl 10 mg 12/02/17 12:28 12/02/17 12:41 Reglan Injection - IVPB 12/02/17 12:29 10 mg ONCE ONE Administration Ondansetron HCl 4 mg 12/02/17 12:29 12/02/17 12:41 Zofran Injection IVPUSH 12/02/17 12:30 Not Given ONCE ONE Potassium Chloride 80 meq 12/02/17 13:36 12/02/17 13:48 K-Dur - PO 12/02/17 13:37 80 meq ONCE ONE Administration Sodium Chloride 2,000 ml 12/02/17 11:59 12/02/17 12:40 Normal Saline - IV 12/02/17 12:00 2,000 ml ONCE ONE Administration <Kayla Durham - Last Filed: 12/02/17 15:57> - LABORATORY CBC & Chemistry Diagram: 12/02/17 12:45 12/02/17 16:22 <Harman Petersen - Last Filed: 12/02/17 18:56> Medical Decision Making - Medical Decision Making 12/02/17 13:57 Dr. Max Kelley was paged and notified via phone service. Call returned at 13:59 , Dr. Pardo will be called instead. 12/02/17 14:00 Hospitalist was microblogged. 12/02/17 14:17 Dr. Pardo was paged ar 14:15. Called returned at 14:17. <Kayla Durham - Last Filed: 12/02/17 15:57> - Medical Decision Making 32 years old past medical history significant for insulin-dependent diabetes hypercholesterolemia presents to the ED with several month history of nausea vomiting. Patient has been evaluated by rheologist for likely gastroparesis. She is status post a delayed GI study/swallow study today as well as a limited ultrasound. She is been unable to tolerate fluids for the last few days Her vomiting is somewhat better controlled after medication however her potassium is significantly low. We will check a magnesium level, replete potassium with both oral and IV potassium and observe overnight for likely gastroparesis and hypokalemia. No EKG changes associated with hyperkalemia noted on EKG. <Harman Petersen - Last Filed: 12/02/17 18:56> *DC/Admit/Observation/Transfer - Attestations Scribe Attestion: 12/02/17 14:44 Documentation prepared by Kayla Durham, acting as medical associate for Harman Petersen MD. <Kayla Durham - Last Filed: 12/02/17 15:57> - Discharge Dispostion Admit: Yes <Harman Petersen - Last Filed: 12/02/17 18:56> Diagnosis at time of Disposition: Gastroparesis Vomiting Qualifiers: Vomiting Intractability: unspecified Nausea presence: unspecified
[2017-12-02] MEDS ORDERED: SODIUM CHLORIDE 0.9% 1000 ML INFUS.BAG IV ONE (11:59)
[2017-12-02] MEDS ORDERED: METOCLOPRAMIDE HCL INJECTION 10 MG/2 ML VIAL IVPB ONE (12:28)
[2017-12-02] MEDS ORDERED: ONDANSETRON 4 MG/2 ML VIAL IVPUSH ONE (12:29)
[2017-12-02] MEDS ORDERED: METOCLOPRAMIDE HCL INJECTION 10 MG/2 ML VIAL ONE (12:46)
[2017-12-02 12:56] LABS: BASO % 0.4 % (0-2.0); EOS % 0.6 % (0-4.5); HEMATOCRIT 48.9 % (32.4-45.2); MCH 27.8 pg (25.7-33.7); MCHC 32.8 g/dl (32.0-36.0); MEAN CELL VOLUME 84.8 fl (80-96); MEAN PLT VOLUME 8.9 fl (7.5-11.1); MONO % 8.8 % (3.8-10.2); NEUT % 77.2 % (42.8-82.8); PLATELET COUNT 318 K/MM3 (134-434); RBC 5.76 M/mm3 (3.60-5.2); RDW 13.7 % (11.6-15.6); WHITE BLOOD COUNT 9.3 K/mm3 (4.0-10.0)
[2017-12-02 13:12] LABS: ALBUMIN 4.3 g/dl (3.4-5.0); ANION GAP 14 (8-16); BLOOD UREA NITROGEN 9 mg/dL (7-18); CALCIUM 9.7 mg/dL (8.5-10.1); CHLORIDE 91 mmol/L (98-107); CO2 31 mmol/L (21-32); CREATININE 0.7 mg/dL (0.55-1.02); GLUCOSE,RANDOM 109 mg/dL (74-106); SGPT/ALT 21 U/L (12-78); SODIUM 136 mmol/L (136-145)
[2017-12-02 13:16] LABS: ALK PHOS 82 U/L (45-117); BILIRUBIN,TOTAL 0.8 mg/dL (0.2-1.0); TOT PROT 8.3 g/dl (6.4-8.2)
[2017-12-02 13:31] LABS: SGOT/AST 24 U/L (15-37)
[2017-12-02 13:32] LABS: POTASSIUM 2.6 mmol/L (3.5-5.1)
[2017-12-02] MEDS ORDERED: POTASSIUM CHLORIDE TABS 20 MEQ TABLET.ER (FP) PO ONE ×2 (13:36→13:47)
[2017-12-02] MEDS ORDERED: KCL 10 MEQ IVPB 10 MEQ/100 ML INFUS.BAG IVPB ONE ×2 (13:47→14:01)
[2017-12-02] MEDS: KCL 10 MEQ IVPB 10 MEQ/100 ML INFUS.BAG IVPB SCH ×3 (13:48→20:26)
[2017-12-02 14:08] LABS: URINE APPEARANCE CLEAR; URINE BILIRUBIN NEGATIVE (NEGATIVE); URINE BLOOD 2+ (NEGATIVE); URINE COLOR YELLOW; URINE GLUCOSE (UA) NEGATIVE (NEGATIVE); URINE KETONE 2+ (NEGATIVE); URINE LEUK ESTERASE NEGATIVE (NEGATIVE); URINE NITRITE NEGATIVE (NEGATIVE); URINE UROBILINOGEN 4.0 E.U/dl mg/dL (0.2-1.0)
[2017-12-02 14:10] LABS: URINE PROTEIN 2+ (NEGATIVE)
[2017-12-02 14:14] LABS: EPI CELLS RARE /HPF (FEW); URINE MUCUS RARE
--- NOTE | 2017-12-02 14:44 | HP ---
CHIEF COMPLAINT: persistent midsternal chest pain accompanied by nausea and vomiting. PCP: Dr. Kelley, yield loss inspector HISTORY OF PRESENT ILLNESS: Patient is a 32 year old female with a significant past medical history of diabetes mellitus and hypercholesterolemia. She presents to the ED with complaints of persistent midsternal chest pain accompanied by nausea and vomiting. The patient states that her symptoms began back in August 2017. Today, patient had a gastric emptying NM study done with an abdominal ultrasound. She reports to the ED today for worsening symptoms of chest pain which is constant pressure accompanied by shortness of breath. Imaging: Abdominal ultrasound 12/02/2017: s/p cholecystectomy, no intra or extrahepatic bile duct dilatation seen. Slightly course echotexture of the liver. Slightly ecogenic right kidney that is isoechoic to the adjacent liver that could be within normal limits. NM gastric emptying study 12/02/2017: pendng ER course was notable for: (1) K. 2.6 > 2.9 (2) Chl 91 (3) acetone negative (4) trop negative Recent Travel: PAST MEDICAL HISTORY: diabetes mellitus and hypercholesterolemia PAST SURGICAL HISTORY: Social History: Smoking: Alcohol: social Drugs: marijuana use Family History: Allergies shellfish derived Allergy (Verified 12/02/17 11:24) HOME MEDICATIONS: Home Medications Medication Instructions Recorded Insulin Glargine,Hum.rec.anlog 50 units SQ BID 06/24/16 [Lantus Solostar PEN (NF)] Insulin Lispro [Humalog] 10 units SQ PRN 08/31/17 REVIEW OF SYSTEMS CONSTITUTIONAL: Absent: fever, chills, diaphoresis, generalized weakness, malaise, loss of appetite, weight change HEENT: Absent: rhinorrhea, nasal congestion, throat pain, throat swelling, difficulty swallowing, mouth swelling, ear pain, eye pain, visual changes CARDIOVASCULAR: Absent: chest pain, syncope, palpitations, irregular heart rate, lightheadedness , peripheral edema RESPIRATORY: Absent: cough, shortness of breath, dyspnea with exertion, orthopnea, wheezing, stridor, hemoptysis GENITOURINARY: Absent: dysuria, frequency, urgency, hesitancy, hematuria, flank pain, genital pain MUSCULOSKELETAL: Absent: myalgia, arthralgia, joint swelling, back pain, neck pain SKIN: Absent: rash, itching, pallor HEMATOLOGIC/IMMUNOLOGIC: Absent: lymphadenopathy, frequent infections ENDOCRINE: Absent: unexplained weight gain, unexplained weight loss, heat intolerance, cold intolerance NEUROLOGIC: Absent: headache, focal weakness or paresthesias, dizziness, unsteady gait, seizure, mental status changes, bladder or bowel incontinence PSYCHIATRIC: Absent: anxiety, depression, suicidal or homicidal ideation, hallucinations. PHYSICAL EXAMINATION Vital Signs - 24 hr 12/02/17 11:24 Temperature 97.3 F L Pulse Rate 65 Respiratory 19 Rate Blood Pressure 155/93 O2 Sat by Pulse 100 Oximetry (%) GENERAL: Awake, alert, and fully oriented, in no acute distress. HEAD: Normal with no signs of trauma. EYES: Pupils equal, round and reactive to light, extraocular movements intact, sclera anicteric, conjunctiva clear. No lid lag. EARS, NOSE, THROAT: Ears normal, nares patent, oropharynx clear without exudates. Moist mucous membranes. NECK: Normal range of motion, supple without lymphadenopathy, JVD, or masses. LUNGS: Breath sounds equal, clear to auscultation bilaterally. No wheezes, and no crackles. No accessory muscle use. HEART: Regular rate and rhythm, normal S1 and S2 without murmur, rub or gallop. ABDOMEN: Soft, nontender, not distended, normoactive bowel sounds, no guarding, no rebound, no masses. No hepatomegaly or splenomegaly. MUSCULOSKELETAL: Normal range of motion at all joints. No bony deformities or tenderness. No CVA tenderness. UPPER EXTREMITIES: 2+ pulses, warm, well-perfused. No cyanosis. No clubbing. No peripheral edema. LOWER EXTREMITIES: 2+ pulses, warm, well-perfused. No calf tenderness. No peripheral edema. NEUROLOGICAL: Cranial nerves II-XII intact. Normal speech. Normal gait. PSYCHIATRIC: Cooperative. Good eye contact. Appropriate mood and affect. SKIN: Warm, dry, normal turgor, no rashes or lesions noted, normal capillary refill. Laboratory Results - last 24 hr 12/02/17 12/02/17 12/02/17 01:45 01:45 12:45 WBC RBC Hgb Hct MCV MCH MCHC RDW Plt Count MPV Neutrophils % Lymphocytes % Monocytes % Eosinophils % Basophils % Sodium 136 Potassium 2.6 L* Chloride 91 L Carbon Dioxide 31 Anion Gap 14 BUN 9 Creatinine 0.7 Creat Clearance w eGFR > 60 Random Glucose 109 H Calcium 9.7 Total Bilirubin 0.8 AST 24 D ALT 21 D Alkaline Phosphatase 82 Troponin I < 0.02 Total Protein 8.3 H Albumin 4.3 Urine Color Yellow Urine Appearance Clear Urine pH 8.0 D Ur Specific [place] 1.017 Urine Protein 2+ H Urine Glucose (UA) Negative Urine Ketones 2+ H Urine Blood 2+ H Urine Nitrite Negative Urine Bilirubin Negative Urine Urobilinogen 4.0 e.u/dl H Ur Leukocyte Esterase Negative Urine WBC (Auto) 3 Urine RBC (Auto) 1 Ur Epithelial Cells Rare Urine Mucus Rare Urine HCG, Qual Negative 12/02/17 12:45 WBC 9.3 RBC 5.76 H Hgb 16.0 H D Hct 48.9 H MCV 84.8 MCH 27.8 MCHC 32.8 RDW 13.7 Plt Count 318 MPV 8.9 Neutrophils % 77.2 Lymphocytes % 13.0 Monocytes % 8.8 Eosinophils % 0.6 D Basophils % 0.4 Sodium Potassium Chloride Carbon Dioxide Anion Gap BUN Creatinine Creat Clearance w eGFR Random Glucose Calcium Total Bilirubin AST ALT Alkaline Phosphatase Troponin I Total Protein Albumin Urine Color Urine Appearance Urine pH Ur Specific [place] Urine Protein Urine Glucose (UA) Urine Ketones Urine Blood Urine Nitrite Urine Bilirubin Urine Urobilinogen Ur Leukocyte Esterase Urine WBC (Auto) Urine RBC (Auto) Ur Epithelial Cells Urine Mucus Urine HCG, Qual ASSESSMENT/PLAN: Patient is a 32 year old female with a significant past medical history of diabetes mellitus and hypercholesterolemia. She presents to the ED with complaints of persistent midsternal chest pain accompanied by nausea and vomiting. The patient states that her symptoms began back in August 2017. Today, patient had a gastric emptying NM study done with an abdominal ultrasound. She reports to the ED today for worsening symptoms of chest pain which is constant pressure accompanied by shortness of breath. On exam, patient is awake and alert and in no acute distress. She is tolerating room air but continues to experience chest pain she rates 7/10 that is constant pressure. She denies any shortness of breath. Imaging: Head CT-An equivocal 2mm enhancing nodule is seen along the pituitary infundibulum. Dedicated pituitary MRI recommended. EKG shows SB with rate of 59 bpm, sinus bradycardia with prolonged QT NM gastric emptying shows markedly delayed gastric emptying with t 1/2 gastric emptying of 397 minuts (normal 60-105) consistent with gastroparesis Cardiology: Chest pain, midsternal Monitor on tele Trend troponins q 6 EKG shows prolonged QT Electrolyte imbalance: Hypokalemia @ 2.6, likely secondary to vomiting Given 2 runs of K, PO K in ED Will give 2 more runs of K riders NS with 10meq K @ 100 Recheck K at 9pm and supplment GI: Abdominal pain Gastroparesis/Nausea/vomiting No further vomiting Give pepcid BID Protonix prn Miralax BID GI followng Stool for H pylori as per GI Endocrine: DM gastroparesis Novolog, BGMs [id number] F.E.N. Fluids: NS 10meq @ 100cc/hr Electrolytes: hypokalemia at 2.6, additional 2 K riders and and IVF Nutrition: NPO, diet as per GI Prophylaxis: DVT: none, ambulatory patient LOS <48 hrs anticipated GI: Protonix, pepcid Visit type - Emergency Visit Emergency Visit: Yes ED Registration Date: 12/02/17 Care time: The patient presented to the Emergency Department on the above date and was hospitalized for further evaluation of their emergent condition. - New Patient This patient is new to me today: Yes Date on this admission: 12/03/17 - Critical Care Critical Care patient: No
[2017-12-02] MEDS ORDERED: SODIUM CHLORIDE 1,000 ML IV SCH (15:00)
[2017-12-02] MEDS ORDERED: PANTOPRAZOLE SODIUM 40 MG VIAL IVPUSH SCH (15:00)
--- NOTE | 2017-12-02 15:42 | CON.GI ---
Consult Consult Specialty:: GI - History of Present Illness History of Present Illness: A 32 yof with IDDM, hypercholesterolemia presents to the ED with several month history of nausea and non-rojectile vomiting with no obvious alleviating, or aggravating factors. Reprots 30 lb weight loss. [place] diarrhea, melena, hematochezia, hematemesis, jaundice, dysphagia, odynophagia, No headaches, lightheadedness, dizziness, photophobia, or neurologic deficits. Reports othaving BMs for weeks at a time. Not taking laxatives b/c afraid of becoming dehydrated. Patient has been evaluated by a special effects artist for likely gastroparesis. She is status post gastric emptying study today as well as a limited ultrasound. A CT abdomen and pelvis last August showed somewhat dilated stomach, s/p cholecystectomy with mildly dilated biliary tree appropriate for post jose. Today, the US showed no significant pathology. Essentially normal CBC and CMP except hypokalemia. Denies chronic marijuana use , however reports taking lots of hot showers. Homem edication sinclude Insuline , PPI, Hydroxazine, Bentyl, Reglan. Reglan, bentyl, PPI have no effect on the nausea, and vomiting. Urine HCG negative, CBC with increase HGb, otherwise negative, normal liver chemistry, normal bili and ALP. - History Source History Provided By: Patient, Medical Record - Past Medical History Gastrointestinal: Yes: Constipation Endocrine: Yes: Diabetes Mellitus - Past Surgical History Past Surgical History: Yes: Cholecystectomy - Alcohol/Substance Use Hx Alcohol Use: No - Smoking History Smoking history: Current some day smoker Have you smoked in the past 12 months: Yes Aproximately how many cigarettes per day: 3 Home Medications - Allergies Allergies/Adverse Reactions: Allergies Allergy/AdvReac Type Severity Reaction Status Date / Time shellfish derived Allergy Verified 12/02/17 11:24 - Home Medications Home Medications: Ambulatory Orders Insulin Glargine,Hum.rec.anlog [Lantus Solostar PEN (NF)] 50 units SQ BID Insulin Lispro [Humalog] 10 units SQ PRN 08/31/17 Family Disease History - Family Disease History Family History: Unremarkable Review of Systems Findings/Remarks: Please refer to H&P Physical Exam-GI Vital Signs: Vital Signs Temperature 97.3 F L 12/02/17 11:24 Pulse Rate 65 12/02/17 11:24 Respiratory Rate 19 12/02/17 11:24 Blood Pressure 155/93 12/02/17 11:24 O2 Sat by Pulse Oximetry (%) 100 12/02/17 11:24 Constitutional: Yes: Well Nourished, No Distress Eyes: Yes: Conjunctiva Clear HENT: Yes: Atraumatic Neck: Yes: Supple Cardiovascular: Yes: Regular Rate and Rhythm Respiratory: Yes: Regular Gastrointestinal Inspection: No: Distention ...Auscultate: Yes: Normoactive Bowel Sounds ...Palpate: Yes: Soft. No: Firm/Rigid, Guarding, Tenderness, Tenderness, Epigastium, Tenderness, Rebound Neurological: Yes: Alert, Oriented Psychiatric: Yes: Other (flat affect) Labs: CBC, BMP 12/02/17 12:45 12/02/17 12:45 Abnormal Lab Results 12/02/17 12/02/17 12/02/17 01:45 12:45 12:45 RBC 5.76 H Hgb 16.0 H D Hct 48.9 H Potassium 2.6 L* Chloride 91 L Random Glucose 109 H Total Protein 8.3 H Urine Protein 2+ H Urine Ketones 2+ H Urine Blood 2+ H Urine Urobilinogen 4.0 e.u/dl H Acetone, Qual 12/02/17 13:00 RBC Hgb Hct Potassium Chloride Random Glucose Total Protein Urine Protein Urine Ketones Urine Blood Urine Urobilinogen Acetone, Qual Negative L Laboratory Tests 12/02/17 12/02/17 12/02/17 01:45 01:45 12:45 WBC RBC Hgb Hct MCV MCH MCHC RDW Plt Count MPV Neutrophils % Lymphocytes % Monocytes % Eosinophils % Basophils % Sodium 136 Potassium 2.6 L* Chloride 91 L Carbon Dioxide 31 Anion Gap 14 BUN 9 Creatinine 0.7 Creat Clearance w eGFR > 60 Random Glucose 109 H Calcium 9.7 Total Bilirubin 0.8 AST 24 D ALT 21 D Alkaline Phosphatase 82 Troponin I < 0.02 Total Protein 8.3 H Albumin 4.3 Urine Color Yellow Urine Appearance Clear Urine pH 8.0 D Ur Specific [place] 1.017 Urine Protein 2+ H Urine Glucose (UA) Negative Urine Ketones 2+ H Urine Blood 2+ H Urine Nitrite Negative Urine Bilirubin Negative Urine Urobilinogen 4.0 e.u/dl H Ur Leukocyte Esterase Negative Urine WBC (Auto) 3 Urine RBC (Auto) 1 Ur Epithelial Cells Rare Urine Mucus Rare Urine HCG, Qual Negative Acetone, Qual 12/02/17 12/02/17 12:45 13:00 WBC 9.3 RBC 5.76 H Hgb 16.0 H D Hct 48.9 H MCV 84.8 MCH 27.8 MCHC 32.8 RDW 13.7 Plt Count 318 MPV 8.9 Neutrophils % 77.2 Lymphocytes % 13.0 Monocytes % 8.8 Eosinophils % 0.6 D Basophils % 0.4 Sodium Potassium Chloride Carbon Dioxide Anion Gap BUN Creatinine Creat Clearance w eGFR Random Glucose Calcium Total Bilirubin AST ALT Alkaline Phosphatase Troponin I Total Protein Albumin Urine Color Urine Appearance Urine pH Ur Specific [place] Urine Protein Urine Glucose (UA) Urine Ketones Urine Blood Urine Nitrite Urine Bilirubin Urine Urobilinogen Ur Leukocyte Esterase Urine WBC (Auto) Urine RBC (Auto) Ur Epithelial Cells Urine Mucus Urine HCG, Qual Acetone, Qual Negative L Imaging - Results Cat Scan: Report Reviewed Ultrasound: Report Reviewed Other: Pending (gastroparesis) Problem List - Problems (1) Nausea Code(s): R11.0 - NAUSEA (2) Constipation Code(s): K59.00 - CONSTIPATION, UNSPECIFIED Assessment/Plan A 32 yof with IDDM and chronic nausea and vomiting for the past 3 months with no known prodromal events, alleviating, or aggravating factors. Being worked up for DM gastroparesis by her special effects artist. Pt had EGD 10/07 with positive H. pylori and, apparently, no eosiniophilic enteritis, or gastritis. gastric emptying study done today, results pending. Reglan hasn't been helping, per patient. Lost 30 lb since August. Clinically and lab-edwards not dehydrated, or malnourished. Noted to have hypokalemia. History of constipation. Has flat effect and appears to be depressed. ? Unclear/mixed history of marijuana use ( taking hot showers to alleviate nausea may be a signs of chronic cannabis- associated vomiting) DM gastroparesis IBS ?intracranial pathology ?cannabis-related vomiting syndrome Replenish electrolytes Zofran IV, or PO continue PPI Follow GE study results CT head Gastroperesis diet (if able to tolerate) Miralax bid Stool for H. pylori ag discussed with the patient
[2017-12-02] MEDS ORDERED: ONDANSETRON 4 MG/2 ML VIAL IVPUSH PRN (16:11)
[2017-12-02] MEDS ORDERED: PANTOPRAZOLE SODIUM 40 MG VIAL ONE (16:12)
[2017-12-02] MEDS ORDERED: ONDANSETRON 4 MG TABLET PO PRN (16:12)
[2017-12-02] MEDS: PANTOPRAZOLE 40 MG TABLET (FP) PO SCH (16:15)
[2017-12-02] MEDS: INSULIN SLIDING SCALE (NOVOLOG) 1 VIAL SQ SCH ×2 (18:03→21:13)
[2017-12-02 18:38] VITALS: BMI 24.0
[2017-12-02] MEDS ORDERED: POTASSIUM CHLORIDE 10 MEQ in SODIUM CHLORIDE 1,000 ML IVPB SCH (19:00)
[2017-12-02] MEDS ORDERED: morphine CARPU-JECT 2 MG/1 ML DISP.SYRIN IVPUSH PRN ×2 (19:41→20:20)
[2017-12-02] MEDS ORDERED: morphine SULFATE 4 MG/ML VIAL ONE (20:33)
[2017-12-02] MEDS: morphine CARPU-JECT 10 MG/1 ML DISP.SYRIN IVPUSH PRN (20:40)
[2017-12-02] MEDS: POTASSIUM CHLORIDE 10 MEQ in SODIUM CHLORIDE 100 ML IVPB SCH ×2 (20:45→22:28)
[2017-12-02] MEDS ORDERED: FAMOTIDINE IV 20 MG/12 ML VIAL IVPUSH SCH (22:00)
[2017-12-02] MEDS: FAMOTIDINE 20 MG/50 ML IVPB 20 MG/50 ML MG IVPB SCH (22:28)
[2017-12-03] MEDS: morphine CARPU-JECT 10 MG/1 ML DISP.SYRIN IVPUSH PRN ×2 (02:24→09:19)
[2017-12-03] MEDS: INSULIN SLIDING SCALE (NOVOLOG) 1 VIAL SQ SCH ×4 (05:59→22:02)
[2017-12-03 07:47] LABS: BASO % 0.6 % (0-2.0); EOS % 1.8 % (0-4.5); HEMATOCRIT 37.6 % (32.4-45.2); HEMOGLOBIN 12.4 GM/dL (10.7-15.3); LYMPH % 38.8 % (8-40); MCH 28.2 pg (25.7-33.7); MEAN CELL VOLUME 85.3 fl (80-96); MEAN PLT VOLUME 8.7 fl (7.5-11.1); MONO % 10.2 % (3.8-10.2); NEUT % 48.6 % (42.8-82.8); PLATELET COUNT 265 K/MM3 (134-434); RDW 13.8 % (11.6-15.6); WHITE BLOOD COUNT 7.4 K/mm3 (4.0-10.0)
[2017-12-03 09:12] LABS: ALBUMIN 3.4 g/dl (3.4-5.0); ALK PHOS 67 U/L (45-117); ANION GAP 11 (8-16); BILIRUBIN,TOTAL 0.6 mg/dL (0.2-1.0); BLOOD UREA NITROGEN 5 mg/dL (7-18); CALCIUM 8.2 mg/dL (8.5-10.1); CHLORIDE 104 mmol/L (98-107); CO2 24 mmol/L (21-32); CREATININE 0.6 mg/dL (0.55-1.02); GLUCOSE,RANDOM 95 mg/dL (74-106); POTASSIUM 3.1 mmol/L (3.5-5.1); SGOT/AST 14 U/L (15-37); SGPT/ALT 16 U/L (12-78); SODIUM 139 mmol/L (136-145); TOT PROT 6.5 g/dl (6.4-8.2)
[2017-12-03 09:14] LABS: CHOLESTEROL 126 mg/dL (50-200); LDL CHOLESTEROL (ONLY SJRH) 66 mg/dL (5-100); TRIGLYCERIDES 77 mg/dL (35-160)
[2017-12-03 09:15] LABS: HDL CHOLESTEROL 47 mg/dL (40-60)
[2017-12-03] MEDS: FAMOTIDINE 20 MG/50 ML IVPB 20 MG/50 ML MG IVPB SCH ×2 (09:20→22:02)
[2017-12-03] MEDS: PANTOPRAZOLE 40 MG TABLET (FP) PO SCH (09:21)
[2017-12-03] MEDS ORDERED: POTASSIUM CHLORIDE TABS 20 MEQ TABLET.ER (FP) PO ONE ×3 (10:30→14:00)
--- NOTE | 2017-12-03 10:55 | PN ---
Physical Exam: SUBJECTIVE: Patient seen and examined at the bedside. States she is still having chest pain, mid sternal, does not radiate and is constant. Worse with deep breathing. OBJECTIVE: Trops negative x 3 chest xray now Cardiology consult Vital Signs Period Temp Pulse Resp BP Sys/Powell Pulse Ox Last 24 Hr 97.2 F-98.7 F 65-90 18-20 110-155/69-99 99-100 GENERAL: Awake, alert, and fully oriented, in no acute distress. HEAD: Normal with no signs of trauma. EYES: Pupils equal, round and reactive to light, extraocular movements intact, sclera anicteric, conjunctiva clear. No lid lag. EARS, NOSE, THROAT: Ears normal, nares patent, oropharynx clear without exudates. Moist mucous membranes. NECK: Normal range of motion, supple without lymphadenopathy, JVD, or masses. LUNGS: Breath sounds equal, clear to auscultation bilaterally. No wheezes, and no crackles. No accessory muscle use. HEART: Regular rate and rhythm, ABDOMEN: Soft, nontender, not distended, normoactive bowel sounds, no guarding, no rebound, no masses. No hepatomegaly or splenomegaly. MUSCULOSKELETAL: Normal range of motion at all joints. No bony deformities or tenderness. No CVA tenderness. UPPER EXTREMITIES: 2+ pulses, warm, well-perfused. No cyanosis. No clubbing. No peripheral edema. LOWER EXTREMITIES: 2+ pulses, warm, well-perfused. No calf tenderness. No peripheral edema. NEUROLOGICAL: Cranial nerves II-XII intact. Normal speech. Normal gait. PSYCHIATRIC: Cooperative. Good eye contact. Appropriate mood and affect. SKIN: Warm, dry, normal turgor, no rashes or lesions noted, normal capillary refill. Laboratory Results - last 24 hr 12/02/17 12/02/17 12/02/17 01:45 01:45 12:45 WBC RBC Hgb Hct MCV MCH MCHC RDW Plt Count MPV Neutrophils % Lymphocytes % Monocytes % Eosinophils % Basophils % Sodium 136 Potassium 2.6 L* Chloride 91 L Carbon Dioxide 31 Anion Gap 14 BUN 9 Creatinine 0.7 Creat Clearance w eGFR > 60 POC Glucometer Random Glucose 109 H Hemoglobin A1c % Calcium 9.7 Magnesium Total Bilirubin 0.8 AST 24 D ALT 21 D Alkaline Phosphatase 82 Troponin I < 0.02 Total Protein 8.3 H Albumin 4.3 Triglycerides Cholesterol Total LDL Cholesterol HDL Cholesterol Urine Color Yellow Urine Appearance Clear Urine pH 8.0 D Ur Specific [place] 1.017 Urine Protein 2+ H Urine Glucose (UA) Negative Urine Ketones 2+ H Urine Blood 2+ H Urine Nitrite Negative Urine Bilirubin Negative Urine Urobilinogen 4.0 e.u/dl H Ur Leukocyte Esterase Negative Urine WBC (Auto) 3 Urine RBC (Auto) 1 Ur Epithelial Cells Rare Urine Mucus Rare Urine HCG, Qual Negative Acetone, Qual 12/02/17 12/02/17 12/02/17 12:45 13:00 16:22 WBC 9.3 RBC 5.76 H Hgb 16.0 H D Hct 48.9 H MCV 84.8 MCH 27.8 MCHC 32.8 RDW 13.7 Plt Count 318 MPV 8.9 Neutrophils % 77.2 Lymphocytes % 13.0 Monocytes % 8.8 Eosinophils % 0.6 D Basophils % 0.4 Sodium Potassium 2.9 L* Chloride Carbon Dioxide Anion Gap BUN Creatinine Creat Clearance w eGFR POC Glucometer Random Glucose Hemoglobin A1c % Calcium Magnesium Total Bilirubin AST ALT Alkaline Phosphatase Troponin I Total Protein Albumin Triglycerides Cholesterol Total LDL Cholesterol HDL Cholesterol Urine Color Urine Appearance Urine pH Ur Specific [place] Urine Protein Urine Glucose (UA) Urine Ketones Urine Blood Urine Nitrite Urine Bilirubin Urine Urobilinogen Ur Leukocyte Esterase Urine WBC (Auto) Urine RBC (Auto) Ur Epithelial Cells Urine Mucus Urine HCG, Qual Acetone, Qual Negative L 12/02/17 12/02/17 12/02/17 16:22 16:24 18:00 WBC RBC Hgb Hct MCV MCH MCHC RDW Plt Count MPV Neutrophils % Lymphocytes % Monocytes % Eosinophils % Basophils % Sodium Potassium 3.1 L Chloride Carbon Dioxide Anion Gap BUN Creatinine Creat Clearance w eGFR POC Glucometer [id number] Random Glucose Hemoglobin A1c % Calcium Magnesium 2.1 Total Bilirubin AST ALT Alkaline Phosphatase Troponin I Total Protein Albumin Triglycerides Cholesterol Total LDL Cholesterol HDL Cholesterol Urine Color Urine Appearance Urine pH Ur Specific [place] Urine Protein Urine Glucose (UA) Urine Ketones Urine Blood Urine Nitrite Urine Bilirubin Urine Urobilinogen Ur Leukocyte Esterase Urine WBC (Auto) Urine RBC (Auto) Ur Epithelial Cells Urine Mucus Urine HCG, Qual Acetone, Qual 12/02/17 12/02/17 12/02/17 18:05 20:35 20:47 WBC RBC Hgb Hct MCV MCH MCHC RDW Plt Count MPV Neutrophils % Lymphocytes % Monocytes % Eosinophils % Basophils % Sodium Potassium Chloride Carbon Dioxide Anion Gap BUN Creatinine Creat Clearance w eGFR POC Glucometer 81 93 Random Glucose Hemoglobin A1c % Calcium Magnesium Total Bilirubin AST ALT Alkaline Phosphatase Troponin I < 0.02 Total Protein Albumin Triglycerides Cholesterol Total LDL Cholesterol HDL Cholesterol Urine Color Urine Appearance Urine pH Ur Specific [place] Urine Protein Urine Glucose (UA) Urine Ketones Urine Blood Urine Nitrite Urine Bilirubin Urine Urobilinogen Ur Leukocyte Esterase Urine WBC (Auto) Urine RBC (Auto) Ur Epithelial Cells Urine Mucus Urine HCG, Qual Acetone, Qual 12/03/17 12/03/17 12/03/17 01:00 05:34 06:00 WBC 7.4 RBC 4.40 D Hgb 12.4 D Hct 37.6 D MCV 85.3 MCH 28.2 MCHC 33.0 RDW 13.8 Plt Count 265 MPV 8.7 Neutrophils % 48.6 D Lymphocytes % 38.8 D Monocytes % 10.2 Eosinophils % 1.8 D Basophils % 0.6 Sodium Potassium Chloride Carbon Dioxide Anion Gap BUN Creatinine Creat Clearance w eGFR POC Glucometer 136 Random Glucose Hemoglobin A1c % Calcium Magnesium Total Bilirubin AST ALT Alkaline Phosphatase Troponin I < 0.02 Total Protein Albumin Triglycerides Cholesterol Total LDL Cholesterol HDL Cholesterol Urine Color Urine Appearance Urine pH Ur Specific [place] Urine Protein Urine Glucose (UA) Urine Ketones Urine Blood Urine Nitrite Urine Bilirubin Urine Urobilinogen Ur Leukocyte Esterase Urine WBC (Auto) Urine RBC (Auto) Ur Epithelial Cells Urine Mucus Urine HCG, Qual Acetone, Qual 12/03/17 12/03/17 12/03/17 06:00 06:00 06:00 WBC RBC Hgb Hct MCV MCH MCHC RDW Plt Count MPV Neutrophils % Lymphocytes % Monocytes % Eosinophils % Basophils % Sodium 139 Potassium 3.1 L Chloride 104 Carbon Dioxide 24 D Anion Gap 11 BUN 5 L Creatinine 0.6 Creat Clearance w eGFR > 60 POC Glucometer Random Glucose 95 Hemoglobin A1c % 7.7 H Calcium 8.2 L Magnesium 2.0 Total Bilirubin 0.6 D AST 14 L D ALT 16 D Alkaline Phosphatase 67 D Troponin I Total Protein 6.5 D Albumin 3.4 D Triglycerides Cholesterol Total LDL Cholesterol HDL Cholesterol Urine Color Urine Appearance Urine pH Ur Specific [place] Urine Protein Urine Glucose (UA) Urine Ketones Urine Blood Urine Nitrite Urine Bilirubin Urine Urobilinogen Ur Leukocyte Esterase Urine WBC (Auto) Urine RBC (Auto) Ur Epithelial Cells Urine Mucus Urine HCG, Qual Acetone, Qual 12/03/17 12/03/17 08:30 10:00 WBC RBC Hgb Hct MCV MCH MCHC RDW Plt Count MPV Neutrophils % Lymphocytes % Monocytes % Eosinophils % Basophils % Sodium Potassium Chloride Carbon Dioxide Anion Gap BUN Creatinine Creat Clearance w eGFR POC Glucometer Random Glucose Hemoglobin A1c % 7.9 H D Calcium Magnesium Total Bilirubin AST ALT Alkaline Phosphatase Troponin I Total Protein Albumin Triglycerides 77 Cholesterol 126 Total LDL Cholesterol 66 HDL Cholesterol 47 Urine Color Urine Appearance Urine pH Ur Specific [place] Urine Protein Urine Glucose (UA) Urine Ketones Urine Blood Urine Nitrite Urine Bilirubin Urine Urobilinogen Ur Leukocyte Esterase Urine WBC (Auto) Urine RBC (Auto) Ur Epithelial Cells Urine Mucus Urine HCG, Qual Acetone, Qual Active Medications Generic Name Dose Route Start Last Admin Trade Name Freq PRN Reason Stop Dose Admin Potassium Chloride 10 meq/ 1,005 mls @ 100 mls/hr 12/02/17 19:00 12/02/17 20: 39 Sodium Chloride IVPB 100 mls/hr ASDIR DREA Administration Famotidine/Sodium Chloride 20 mg in 50 mls @ 50 mls/hr 12/02/17 22:00 09:20 Pepcid 20 Mg Premixed Ivpb - IVPB 50 mls/hr BID DREA Administration Insulin Aspart 1 vial 12/02/17 16:30 12/03/17 05:59 Novolog Vial Sliding Scale - SQ Not Given ACHS DREA Protocol Morphine Sulfate 1 mg 12/02/17 20:29 12/03/17 09:19 Morphine Injection - IVPUSH 1 mg Q4H PRN Administration PAIN Pantoprazole Sodium 40 mg 12/02/17 16:15 12/03/17 09:21 Protonix - PO 40 mg DAILY DREA Administration Potassium Chloride 20 meq 12/03/17 12:30 K-Dur - PO 12/03/17 12:31 ONCE ONE ASSESSMENT/PLAN: Patient is a 32 year old female with a significant past medical history of diabetes mellitus and hypercholesterolemia. She presents to the ED with complaints of persistent midsternal chest pain accompanied by nausea and vomiting. The patient states that her symptoms began back in August 2017. Today, patient had a gastric emptying NM study done with an abdominal ultrasound. She reports to the ED today for worsening symptoms of chest pain which is constant pressure accompanied by shortness of breath. On exam, patient is awake and alert and in no acute distress. She is tolerating room air but continues to experience chest pain she rates 7/10 that is constant pressure. She denies any shortness of breath. Imaging: Head CT-An equivocal 2mm enhancing nodule is seen along the pituitary infundibulum. Dedicated pituitary MRI recommended. EKG shows SB with rate of 59 bpm NM gastric emptying shows markedly delayed gastric emptying with t 1/2 gastric emptying of 397 minuts (normal 60-105) consistent with gastroparesis Chest xray 12/03/2017 - no acute pathology Cardiology: Chest pain, midsternal No events on tele, trops negative x 3 Cardiology consulted, notes reviewed Recommend initiation of Kermit or Arbs once symptoms improve ASA 81mg once symptoms resolve Echo to evaluate murmur d/c telemonitoring Electrolyte imbalance Hypokalemia on admission, now resolving with K riders GI: Abdominal pain Gastroparesis/Nausea/vomiting No further vomiting Intermittent epigastric pain, morphine may be contributing, will d/c Give pepcid BID Protonix daily Zofran prn Miralax BID GI following Stool for H pylori as per GI Endocrine: DM gastroparesis Novolog, BGMs hmga1c F.E.N. Fluids: tolerating PO Electrolytes: hypokalemia resolving.bmp in a.m Nutrition: gastroparesis diet Prophylaxis: DVT: none, ambulatory patient LOS <48 hrs anticipated GI: Protonix, pepcid Visit type - Emergency Visit Emergency Visit: Yes ED Registration Date: 12/02/17 Care time: The patient presented to the Emergency Department on the above date and was hospitalized for further evaluation of their emergent condition. - New Patient This patient is new to me today: No - Critical Care Critical Care patient: No - Discharge Referral Referred to [facility] No
--- NOTE | 2017-12-03 13:15 | PN ---
Progress Note (short form) - Note Progress Note: Chief Complaint: Events noted, notes reviewed, continues to report persistence of chest pain, denies any dyspnea, reports persistence of nausea and vomiting History of Present Illness: Seen and examined on telemetry. Full consult dictated EKG's noted no evidence of prolonged QTc, U-wave noted Medications: Current Medications Potassium Chloride 10 meq/ (Sodium Chloride) 1,005 mls @ 100 mls/hr IVPB ASDIR [facility] Last Admin: 12/02/17 20:39 Dose: 100 mls/hr Famotidine/Sodium Chloride (Pepcid 20 Mg Premixed Ivpb -) 20 mg in 50 mls @ 50 mls/hr IVPB BID [facility] Last Admin: 12/03/17 09:20 Dose: 50 mls/hr Insulin Aspart (Novolog Vial Sliding Scale -) 1 vial SQ ACHS [facility] PRN Reason: Protocol Last Admin: 12/03/17 12:50 Dose: 2 units Lorazepam (Ativan Injection -) 0.5 mg IVPUSH ONCE ONE Stop: 12/03/17 12:09 Morphine Sulfate (Morphine Injection -) 1 mg IVPUSH Q4H PRN PRN Reason: PAIN Last Admin: 12/03/17 09:19 Dose: 1 mg Pantoprazole Sodium (Protonix -) 40 mg PO DAILY [facility] Last Admin: 12/03/17 09:21 Dose: 40 mg Review of Systems Cardiovascular: As noted above Respiratory: denies: denies: Cough or Sputum Production Gastrointestinal: denies: Diarrhea, Constipation but reports Nausea and Vomiting Musculoskeletal: No Symptoms Reported Endocrine: No Symptoms Reported Vital Signs: Last Vital Signs Temp Pulse Resp BP Pulse Ox 98.3 F 68 20 117/69 99 12/03/17 06:00 12/03/17 06:00 12/03/17 06:00 12/03/17 06:00 12/02/17 21:00 Intake & Output 11/30/17 12/01/17 12/02/17 12/03/17 23:59 23:59 23:59 23:59 Intake Total 3530 700 Balance 3530 700 Weight 158 lb Constitutional: In Moderate Distress, Anxious Neck: Supple Negative JVD Respiratory: Clear to A&P Bilaterally Cardiovascular: S1 S2 Regular rate Rhythm Grade 1/6 SM Gastrointestinal: Soft Benign Normal Bowel Sounds Ext: No Edema Labs: CBC, BMP 12/03/17 06:00 Troponin, BNP 12/02/17 12/02/17 12/03/17 12:45 20:35 01:00 Troponin I < 0.02 < 0.02 < 0.02 Assessment/Plan ASSESSMENT: 1. Chest pain syndrome clinical presentation is not consistent with CAD angina pectoris, no evidence of ACS by EKG criteria or cardiac biochemical markers 2. Nausea, vomiting and persistent discomfort etiology to be determined, GI pathology, Gastro-paresis 3. No evidence of prolonged QTc, U-wave noted 4. Diabetes Mellitus 5. Hypercholesterolemia 6. Heart murmur most likely benign functional murmur 7. Hypokalemia 8. Gastro-paresis 9. Anxiety disorder 10. History of substance abuse/Marijuana PLAN: 1. Consider the addition of ACEI or ARBS considering her co-morbidities, once her clinical syndrome resolves 2. Consider the addition of ASA therapy once her GI symptoms resolve 3. Patient has not been on statin therapy as outpatient, low LDL most likely related to her clinical presentation 4. Evaluation and management of the above noted presentation/chest pain as per the primary team 5. Echocardiography to evaluate the above noted heart murmur 6. Can be transferred to floor care from the cardiovascular point of view Thank you Keri Turner M.D.
[2017-12-03] MEDS ORDERED: LORazepam 2 MG/ML SDV VIAL IVPUSH ONE (14:00)
--- NOTE | 2017-12-03 14:36 | CONS ---
DATE OF CONSULTATION: 12/03/2017 REQUESTED BY: Hospitalist. CHIEF COMPLAINT: Evaluation of chest discomfort and an abnormal electrocardiogram. HISTORY OF PRESENT ILLNESS: A 32-year-old female of descent with known history of diabetes mellitus, hypercholesterolemia, currently on no statin therapy, marijuana abuse, who presented to [facility] with worsening retrosternal chest discomfort and persistence of nausea and vomiting. Symptoms have been noted for the last several months and since symptoms worsened she presented to the emergency room for further evaluation and management. Chest discomfort is described as sharp pain which is noted at rest and with physical activity and has prevented the patient from sleeping adequately. Patient in addition reports nausea and vomiting which has been persistent. Patient denies any dyspnea, orthopnea, paroxysmal nocturnal dyspnea or peripheral edema. Patient denies any palpitations, dizziness, lightheadedness or syncope. Upon evaluation, she was noted to have an abnormal electrocardiogram, prolonged QTc interval. Patient currently is in distress related to the above-noted discomfort. Patient was given morphine without any alleviation of symptomatology. She was evaluated by a documentation nurse recently and gastric emptying study was performed which revealed evidence of prolonged gastric emptying consistent with gastroparesis. PAST MEDICAL HISTORY: Diabetes mellitus, hypercholesterolemia although currently on no statin therapy. PAST SURGICAL HISTORY: Cholecystectomy. SOCIAL HISTORY: Social alcohol intake and admits to marijuana abuse. FAMILY HISTORY: No family history of coronary artery disease. ALLERGIES: SHELLFISH. MEDICAL THERAPY: Currently includes potassium supplementation; Pepcid 20 mg intravenously; insulin coverage; Ativan 0.5 mg once; morphine sulfate 1 mg IV push once; Protonix 40 mg once a day. REVIEW OF SYSTEMS:Head and Neck: Denies headache, photophobia, blurring of vision. Respiratory: No cough or sputum production. Cardiovascular: As noted above. Gastrointestinal: Reports nausea, vomiting. Denies diarrhea, constipation. Genitourinary: No symptoms reported. Musculoskeletal: No symptoms reported. PHYSICAL EXAMINATION:Vital Signs: Blood pressure is 117/69 mmHg, pulse rate is 68 beats per minute. Head and Neck: Pupils equally reactive to light and accommodation. Extraocular muscles intact. Anicteric sclerae. Negative JVD. No bruit appreciated. Chest: Clear to auscultation and percussion. Cardiovascular: S1, S2 regular. Grade 1/6 systolic apical murmur. No clicks or gallops. Abdomen: Soft, benign. Normoactive bowel sounds. Extremities: Negative edema. Intact distal pulses. No calf tenderness. DIAGNOSTIC STUDIES: Electrocardiogram reveals sinus rhythm with nonspecific T-wave abnormality. U wave was noted. CBC revealed a white cell count 7.4, hemoglobin 12.4, platelet count of 65. Hemoglobin A1c was 7.9. Cholesterol 126, LDL 66, HDL 47, triglyceride 77. Sodium 139, potassium 3.1, BUN 5, creatinine 0.6, glucose 95 with normal liver profile. ASSESSMENT: 1. Chest pain syndrome. Clinical presentation is not consistent with coronary artery disease, angina pectoris. No evidence of acute coronary syndrome by electrocardiogram criteria or cardiac biochemical markers. 2. Nausea, vomiting and persistent discomfort. Etiology to be determined. Gastrointestinal pathology most likely. Gastroparesis. 3. No evidence of prolonged QTc interval. U wave was noted. 4. Diabetes mellitus. 5. Hypercholesterolemia. 6. Heart murmur. Most likely benign functional murmur. 7. Hypokalemia. 8. Gastroparesis. 9. Anxiety disorder. 10. History of substance abuse, marijuana. RECOMMENDATIONS: 1. Consideration for addition of TRI inhibitor or angiotensin receptor blockers considering her comorbidities once her clinical syndrome resolves. 2. Consider the addition of aspirin therapy once her GI symptoms resolve. 3. Patient has not been on statin therapy as outpatient. Low LDL most likely related to her clinical presentation with persistent nausea, vomiting. 4. Evaluation and management of the above-noted presentation chest pain as per the primary team. 5. Echocardiography for evaluation of the above-noted heart murmur. 6. Can be transferred to floor care from the cardiovascular point of view. Thank you for the kind referral. SARAH BADILLO M.D. [id number]
[2017-12-03] MEDS ORDERED: ONDANSETRON 4 MG/2 ML VIAL IVPUSH PRN (15:12)
--- NOTE | 2017-12-03 16:23 | EKG ---
Test Reason : Blood Pressure : / mmHG Vent. Rate : 068 BPM Atrial Rate : 068 BPM P-R Int : 132 ms QRS Dur : 076 ms QT Int : 428 ms P-R-T Axes : 023 058 038 degrees QTc Int : 455 ms NORMAL SINUS RHYTHM NORMAL ECG WHEN COMPARED WITH ECG OF 03-DEC-2017 11:32, NO SIGNIFICANT CHANGE WAS FOUND Confirmed by RONY RODGERS MD ([id number]) on 12/03/2017 4:23:07 PM Referred By: Zane ANDUJAR Confirmed By:RONY RODGERS MD
--- NOTE | 2017-12-03 16:28 | EKG ---
Test Reason : Blood Pressure : / mmHG Vent. Rate : 066 BPM Atrial Rate : 066 BPM P-R Int : 134 ms QRS Dur : 078 ms QT Int : 440 ms P-R-T Axes : 026 053 035 degrees QTc Int : 461 ms NORMAL SINUS RHYTHM NORMAL ECG WHEN COMPARED WITH ECG OF 02-DEC-2017 11:20, NO SIGNIFICANT CHANGE WAS FOUND Confirmed by RONY RODGERS MD ([id number]) on 12/03/2017 4:28:04 PM Referred By: Zane ANDUJAR Confirmed By:RONY RODGERS MD
[2017-12-03] MEDS ORDERED: METOCLOPRAMIDE HCL INJECTION 10 MG/2 ML VIAL IVPB PRN (17:03)
--- NOTE | 2017-12-03 17:09 | PN ---
GI Progress Note Subjective: Persistent upper abdominal pain / nausea. Poor PO intake but tolerating solid diet currently SGES from 12/02 revealed markedly delayed gastric emptying Abdominal US from 12/02 revealed normal looking biliary tree and ? fatty liver Warm showers make her symptoms feel better (she says not so much the nausea but the body pains that are associated with it) - Objective Vital Signs: Vital Signs Temperature 98.3 F 12/03/17 14:35 Pulse Rate 74 12/03/17 14:35 Respiratory Rate 20 12/03/17 14:35 Blood Pressure 150/105 12/03/17 14:35 O2 Sat by Pulse Oximetry (%) 99 12/03/17 10:00 Constitutional: Calm Eyes: No: Sclera Icterus Cardiovascular: Yes: Regular Rate and Rhythm Respiratory: No: CTA Bilaterally Gastrointestinal Inspection: Yes: Other (striae). No: Distention ...Auscultate: Yes: Normoactive Bowel Sounds ...Palpate: Yes: Tenderness (mild TTP epigastrium) ...Percussion: No: Tympanitic Edema: No (No LE edema) Neurological: Yes: Alert, Oriented Labs: CBC, BMP 12/03/17 06:00 12/03/17 15:20 - ....Imaging Ultrasound: Report Reviewed Other: Report Reviewed (SGES report reviewed) Problem List - Problems (1) Gastroparesis Assessment/Plan: Ms. Valentin is a diabetic with elevated Hgb A1C. Diabetic gastroparesis would be in differential however the description of the onset described as acute with no symptoms up until this past august. She has been on medical therapy previously and she says that zofran maked her sick Ordered Reglan 10mg IVPB standing for 4 doses Ordered TSH / Coags given complaints of worsening bruisisng of late Continue H2 Renea therapy Diabetic gastroparesis diet Calorie count Glycemic control Ordered urine tox Avoid opiate analgesia Code(s): K31.84 - GASTROPARESIS
--- NOTE | 2017-12-03 17:15 | EKG ---
Test Reason : Blood Pressure : / mmHG Vent. Rate : 059 BPM Atrial Rate : 059 BPM P-R Int : 146 ms QRS Dur : 090 ms QT Int : 492 ms P-R-T Axes : 027 052 026 degrees QTc Int : 487 ms SINUS BRADYCARDIA PROLONGED QT ABNORMAL ECG WHEN COMPARED WITH ECG OF 10-NOV-2017 13:21, QT HAS LENGTHENED Confirmed by RONY RODGERS MD ([id number]) on 12/03/2017 5:15:16 PM Referred By: Confirmed By:RONY RODGERS MD
[2017-12-03] MEDS: LORazepam 1 MG TABLET PO PRN (17:58)
[2017-12-03] MEDS: METOCLOPRAMIDE HCL INJECTION 10 MG/2 ML VIAL IVPB SCH (22:03)
[2017-12-03] MEDS: diphenhydrAMINE HCL 25 MG CAPSULE (FP) PO PRN (22:03)
[2017-12-03 22:36] LABS: URINE AMPHETAMINES NEGATIVE ng/ml (CUTOFF=500); URINE BARBITURATES NEGATIVE ng/ml (CUTOFF=200)
[2017-12-03 22:37] LABS: COCAINE, UR NEGATIVE ng/ml (CUTOFF=300); METHADONE, UR NEGATIVE ng/ml (CUTOFF=300); PHENCYCLIDINE,URINE NEGATIVE ng/ml (CUTOFF=25); URINE BENZODIAZEPINES NEGATIVE ng/ml (CUTOFF=200)
[2017-12-03 22:39] LABS: OPIATES, URI POSITIVE ng/ml (CUTOFF=300)
[2017-12-04] MEDS: ACETAMINOPHEN 325 MG TABLET (FP) PO PRN ×3 (04:06→22:36)
[2017-12-04] MEDS ORDERED: morphine CARPU-JECT 10 MG/1 ML DISP.SYRIN IVPUSH ONE (05:00)
--- NOTE | 2017-12-04 05:19 | HOSP ---
Subjective - Review of Symptoms Subjective: Asked to see pt for mid-sternal Chest pressure. Pt reports onset of pain since yesterday. she denies relief with tylenol she states it is constant, squeezing. she denies associated vomiting, sweating, syncope, heart palps, jaw claudication , radiation, numbness. Pex Gen- alert, anxious, non-toxic, sitting up right in bed hent- at/nc, delgado, neck supple, trachea midline Resp- mild exp wheeze, no cyanosis, no rales, no ronchi Cards- RRR, no JVD, no leg edema, no chest wall TTP Gi- non-tender no guarding, no rebound, no rigidity neuro- alert, speech clear, no facial droop, no seizures psych- agitated, upset, talkative a/p 1. chest pressure- troponins here negative x3. check cxr, trop, ekg, start nebs , morphine 1mg iv x1 Physical Examination Vital Signs: Vital Signs Temperature 98.2 F 12/03/17 22:00 Pulse Rate 72 12/03/17 22:00 Respiratory Rate 18 12/03/17 22:00 Blood Pressure 120/77 12/03/17 22:00 O2 Sat by Pulse Oximetry (%) 100 12/03/17 21:00 Labs: CBC, BMP 12/03/17 06:00 12/03/17 15:20
[2017-12-04] MEDS: LORazepam 1 MG TABLET PO PRN ×2 (05:44→22:36)
[2017-12-04] MEDS: ALBUTEROL SO4 2.5/IPRATROPIUM 0.5 INH SOL 3 ML VIAL.NEB. NEB SCH ×3 (05:45→06:00)
[2017-12-04] MEDS: METOCLOPRAMIDE HCL INJECTION 10 MG/2 ML VIAL IVPB SCH ×2 (05:45→14:56)
[2017-12-04] MEDS ORDERED: ALBUTEROL SO4 0.083% IH SOL 2.5 MG/3 ML VIAL.NEB. NEB ONE (05:52)
[2017-12-04] MEDS: INSULIN SLIDING SCALE (NOVOLOG) 1 VIAL SQ SCH ×4 (07:09→22:35)
[2017-12-04 07:51] LABS: BASO % 0.6 % (0-2.0); EOS % 1.3 % (0-4.5); HEMATOCRIT 40.5 % (32.4-45.2); HEMOGLOBIN 13.5 GM/dL (10.7-15.3); MCH 28.5 pg (25.7-33.7); MCHC 33.4 g/dl (32.0-36.0); MEAN CELL VOLUME 85.1 fl (80-96); MEAN PLT VOLUME 9.6 fl (7.5-11.1); MONO % 10.3 % (3.8-10.2); NEUT % 62.8 % (42.8-82.8); PLATELET COUNT 285 K/MM3 (134-434); RBC 4.76 M/mm3 (3.60-5.2); RDW 13.8 % (11.6-15.6); WHITE BLOOD COUNT 6.1 K/mm3 (4.0-10.0)
[2017-12-04 08:15] LABS: ALBUMIN 3.8 g/dl (3.4-5.0); ANION GAP 11 (8-16); BLOOD UREA NITROGEN 7 mg/dL (7-18); CALCIUM 8.5 mg/dL (8.5-10.1); CHLORIDE 102 mmol/L (98-107); CO2 23 mmol/L (21-32); CREATININE 0.7 mg/dL (0.55-1.02); GLUCOSE,RANDOM 270 mg/dL (74-106); POTASSIUM 3.7 mmol/L (3.5-5.1); SGOT/AST 15 U/L (15-37); SGPT/ALT 21 U/L (12-78); SODIUM 136 mmol/L (136-145); TOT PROT 7.1 g/dl (6.4-8.2)
[2017-12-04 08:17] LABS: INR 1.06 (0.82-1.09)
[2017-12-04 08:20] LABS: ACTIVATED PTT 24.5 SECONDS (26.9-34.4)
[2017-12-04 08:23] LABS: ALK PHOS 71 U/L (45-117)
--- NOTE | 2017-12-04 09:25 | PN ---
Progress Note (short form) - Note Progress Note: Chief Complaint: Events noted, notes reviewed, continues to report persistence of chest pain and upper abdominal pain, reports persistence of nausea, denies any dyspnea History of Present Illness: Seen and examined on telemetry. Events noted, notes reviewed, continues to report persistence of chest pain and upper abdominal pain, reports persistence of nausea, denies any dyspnea As outlined EKG's noted no evidence of prolonged QTc, U-wave noted Medications: Current Medications Acetaminophen (Tylenol -) 650 mg PO Q6H PRN PRN Reason: PAIN Last Admin: 12/04/17 04:06 Dose: 650 mg Bacitracin (Bacitracin -) 1 applic TP DAILY [facility] Diphenhydramine HCl (Benadryl -) 25 mg PO HS PRN PRN Reason: INSOMNIA Last Admin: 12/03/17 22:03 Dose: 25 mg Famotidine/Sodium Chloride (Pepcid 20 Mg Premixed Ivpb -) 20 mg in 50 mls @ 50 mls/hr IVPB BID DREA Last Admin: 12/03/17 22:02 Dose: 50 mls/hr Insulin Aspart (Novolog Vial Sliding Scale -) 1 vial SQ ACHS DRE[facility] PRN Reason: Protocol Last Admin: 12/04/17 07:09 Dose: 4 units Lorazepam (Ativan -) 1 mg PO Q12H PRN PRN Reason: ANXIETY Last Admin: 12/04/17 05:44 Dose: 1 mg Metoclopramide HCl (Reglan Injection -) 10 mg IVPB TID [facility] Stop: 12/04/17 22:01 Last Admin: 12/04/17 05:45 Dose: 10 mg Pantoprazole Sodium (Protonix -) 40 mg PO DAILY [facility] Last Admin: 12/03/17 09:21 Dose: 40 mg Review of Systems Cardiovascular: As noted above Respiratory: denies: denies: Cough or Sputum Production Gastrointestinal: denies: Diarrhea, Constipation but reports Nausea, Vomiting and Abdominal Discomfort Musculoskeletal: No Symptoms Reported Endocrine: No Symptoms Reported Vital Signs: Last Vital Signs Temp Pulse Resp BP Pulse Ox 97.3 F L 93 H 20 140/90 100 12/04/17 06:00 12/04/17 06:00 12/04/17 06:00 12/04/17 06:00 12/03/17 21:00 Intake & Output 01/1112/02/17 12/03/17 12/04/17 23:59 23:59 23:59 23:59 Intake Total 3530 700 425 Balance 3530 700 425 Weight 158 lb Constitutional: In Moderate Distress Relate to Pain, Anxious Neck: Supple Negative JVD Respiratory: Clear to A&P Bilaterally Cardiovascular: S1 S2 Regular rate Rhythm Grade 1/6 SM Gastrointestinal: Soft Benign Normal Bowel Sounds Ext: No Edema Labs: CBC, BMP 12/04/17 06:00 12/04/17 06:00 Troponin, BNP 12/04/17 06:30 Troponin I < 0.02 Assessment/Plan ASSESSMENT: 1. Chest pain syndrome (persistent) clinical presentation is not consistent with CAD angina pectoris, no evidence of ACS by EKG criteria or cardiac biochemical markers 2. Nausea, vomiting and persistent discomfort, probably related to gastro- paresis 3. No evidence of prolonged QTc, U-wave noted 4. Diabetes Mellitus 5. Hypercholesterolemia 6. Heart murmur most likely benign functional murmur 7. Hypokalemia, resolved 8. Gastro-paresis 9. Anxiety disorder 10. History of substance abuse/Marijuana PLAN: 1. Consider the addition of ACEI or ARBS considering her co-morbidities, once her clinical syndrome resolves 2. Consider the addition of ASA therapy once her GI symptoms resolve 3. Evaluation and management of the above noted presentation/chest pain, abdominal pain as per the primary team 4. Echocardiography to evaluate the above noted heart murmur 5. As outlined in yesterday's note can be transferred to floor care from the cardiovascular point of view Keri Turner M.D.
[2017-12-04] MEDS: BACITRACIN 15 GM TUBE TOPICAL OINTMENT TP SCH (10:03)
[2017-12-04] MEDS: PANTOPRAZOLE 40 MG TABLET (FP) PO SCH ×2 (10:04→12:20)
[2017-12-04] MEDS: FAMOTIDINE 20 MG/50 ML IVPB 20 MG/50 ML MG IVPB SCH (10:04)
--- NOTE | 2017-12-04 10:46 | PN ---
Physical Exam: SUBJECTIVE: Patient seen and examined Pt c/o nausea and vomiting x1 this morning, c/o generalized pain, poor appetite ,reports cp overnight, now cp free, denies sob or palpitations. OBJECTIVE: Vital Signs Period Temp Pulse Resp BP Sys/Powell Pulse Ox Last 24 Hr 97.3 F-98.3 F 68-93 18-20 120-164/77-109 100 GENERAL: The patient is awake, alert, and fully oriented, in no acute distress. HEAD: Normal with no signs of trauma. EYES: PERRL, extraocular movements intact, sclera anicteric, conjunctiva clear. No ptosis. ENT: Ears normal, nares patent, oropharynx clear without exudates, moist mucous membranes. NECK: Trachea midline, full range of motion, supple. LUNGS: Breath sounds equal, clear to auscultation bilaterally, no wheezes, no crackles, no accessory muscle use. HEART: Regular rate and rhythm, S1,+murmur,no rub or gallop. ABDOMEN: Soft, nontender, nondistended, normoactive bowel sounds, no guarding, no rebound, no hepatosplenomegaly, no masses. EXTREMITIES: 2+ pulses, warm, well-perfused, no edema. NEUROLOGICAL: Cranial nerves II through XII grossly intact. Normal speech, gait not observed. PSYCH: Normal mood, normal affect. SKIN: Warm, dry, normal turgor, no rashes or lesions noted Laboratory Results - last 24 hr 12/03/17 12/03/17 12/03/17 12:30 12:41 15:20 WBC RBC Hgb Hct MCV MCH MCHC RDW Plt Count MPV Neutrophils % Lymphocytes % Monocytes % Eosinophils % Basophils % PT with INR INR PTT (Actin FS) Sodium Potassium 3.4 L 3.5 Chloride Carbon Dioxide Anion Gap BUN Creatinine Creat Clearance w eGFR POC Glucometer 171 Random Glucose Calcium Total Bilirubin AST ALT Alkaline Phosphatase Troponin I Total Protein Albumin TSH Opiates Screen Methadone Screen Barbiturate Screen Phencyclidine Screen Ur Amphetamines Screen MDMA (Ecstasy) Screen Benzodiazepines Screen Cocaine Screen U Marijuana (THC) Screen 12/03/17 12/03/17 12/03/17 16:37 20:30 22:01 WBC RBC Hgb Hct MCV MCH MCHC RDW Plt Count MPV Neutrophils % Lymphocytes % Monocytes % Eosinophils % Basophils % PT with INR INR PTT (Actin FS) Sodium Potassium Chloride Carbon Dioxide Anion Gap BUN Creatinine Creat Clearance w eGFR POC Glucometer 170 182 Random Glucose Calcium Total Bilirubin AST ALT Alkaline Phosphatase Troponin I Total Protein Albumin TSH Opiates Screen Positive Methadone Screen Negative Barbiturate Screen Negative Phencyclidine Screen Negative Ur Amphetamines Screen Negative MDMA (Ecstasy) Screen Negative Benzodiazepines Screen Negative Cocaine Screen Negative U Marijuana (THC) Screen Positive 12/04/17 12/04/17 12/04/17 05:50 06:00 06:00 WBC 6.1 RBC 4.76 Hgb 13.5 Hct 40.5 MCV 85.1 MCH 28.5 MCHC 33.4 RDW 13.8 Plt Count 285 MPV 9.6 D Neutrophils % 62.8 D Lymphocytes % 25.0 D Monocytes % 10.3 H Eosinophils % 1.3 Basophils % 0.6 PT with INR INR PTT (Actin FS) Sodium 136 Potassium 3.7 Chloride 102 Carbon Dioxide 23 Anion Gap 11 BUN 7 Creatinine 0.7 Creat Clearance w eGFR > 60 POC Glucometer 240 Random Glucose 270 H Calcium 8.5 Total Bilirubin 1.0 D AST 15 ALT 21 D Alkaline Phosphatase 71 Troponin I Total Protein 7.1 Albumin 3.8 TSH 0.83 Opiates Screen Methadone Screen Barbiturate Screen Phencyclidine Screen Ur Amphetamines Screen MDMA (Ecstasy) Screen Benzodiazepines Screen Cocaine Screen U Marijuana (THC) Screen 12/04/17 12/04/17 12/04/17 06:00 06:30 07:08 WBC RBC Hgb Hct MCV MCH MCHC RDW Plt Count MPV Neutrophils % Lymphocytes % Monocytes % Eosinophils % Basophils % PT with INR 12.00 H INR 1.06 PTT (Actin FS) 24.5 L Sodium Potassium Chloride Carbon Dioxide Anion Gap BUN Creatinine Creat Clearance w eGFR POC Glucometer 245 Random Glucose Calcium Total Bilirubin AST ALT Alkaline Phosphatase Troponin I < 0.02 Total Protein Albumin TSH Opiates Screen Methadone Screen Barbiturate Screen Phencyclidine Screen Ur Amphetamines Screen MDMA (Ecstasy) Screen Benzodiazepines Screen Cocaine Screen U Marijuana (THC) Screen Active Medications Generic Name Dose Route Start Last Admin Trade Name Freq PRN Reason Stop Dose Admin Acetaminophen 650 mg 12/03/17 23:43 12/04/17 04:06 Tylenol - PO 650 mg Q6H PRN Administration PAIN Bacitracin 1 applic 12/04/17 10:00 12/04/17 10:03 Bacitracin - TP Not Given DAILY DRE[facility] Diphenhydramine HCl 25 mg 12/03/17 16:23 12/03/17 22:03 Benadryl - PO 25 mg HS PRN Administration INSOMNIA Famotidine/Sodium Chloride 20 mg in 50 mls @ 50 mls/hr 12/02/17 22:00 10:04 Pepcid 20 Mg Premixed Ivpb - IVPB Not Given BID DREA Insulin Aspart 1 vial 12/02/17 16:30 12/04/17 07:09 Novolog Vial Sliding Scale - SQ 4 units ACHS DREA Administration Protocol Lorazepam 1 mg 12/03/17 14:44 12/04/17 05:44 Ativan - PO 1 mg Q12H PRN Administration ANXIETY Metoclopramide HCl 10 mg 12/03/17 22:00 12/04/17 05:45 Reglan Injection - IVPB 12/04/17 22:01 10 mg TID DREA Administration Pantoprazole Sodium 40 mg 12/02/17 16:15 12/04/17 10:04 Protonix - PO Not Given DAILY [facility]RE[facility] Imaging: Head CT-An equivocal 2mm enhancing nodule is seen along the pituitary infundibulum. Dedicated pituitary MRI recommended. EKG shows SB with rate of 59 bpm NM gastric emptying shows markedly delayed gastric emptying with t 1/2 gastric emptying of 397 minutes (normal 60-105) consistent with gastroparesis Chest xray 12/03/2017 - no acute pathology ASSESSMENT/PLAN: Patient is a 32 year old female with a significant past medical history of diabetes mellitus and hypercholesterolemia.Pt presents to the ED with complaints of persistent maternal chest pain accompanied by nausea and vomiting. *Chest pain, - MS- resolved -EKG-SR, no acute ST changes -No events on tele, trops negative x 3 Cardiology consulted, notes reviewed Recommend initiation of Kermit or Arbs once symptoms improve ASA 81mg once symptoms resolve Echo to evaluate murmur d/c tele monitoring *Hypokalemia on admission- resolved - s/p K riders *Gastroparesis/Nausea/vomiting ?cannabis-related vomiting syndrome reports vomiting x1 NM gastric emptying shows markedly delayed gastric emptying with t 1/2 gastric emptying of 397 minutes (normal 60-105) consistent with gastroparesis GI following -will cont on Reglan, Pepcid and PPI unable to corbin Zofran Stool for H pylori as per GI Abdominal US from 12/02 revealed normal looking biliary tree and ? fatty liver Endocrine: DM gastroparesis Novolog, BGMs hmga1c F.E.N. Fluids: tolerating PO Monitor Electrolytes,replace as needed Nutrition: gastroparesis diet Prophylaxis: DVT:Lovenox GI: Protonix, pepcid Visit type - Emergency Visit Emergency Visit: Yes ED Registration Date: 12/02/17 Care time: The patient presented to the Emergency Department on the above date and was hospitalized for further evaluation of their emergent condition. - New Patient This patient is new to me today: Yes Date on this admission: 12/04/17 - Critical Care Critical Care patient: No
[2017-12-04] MEDS: ENOXAPARIN NA (PORCINE) 40 MG/0.4 ML DISP.SYRIN SQ SCH (14:56)
[2017-12-04] MEDS ORDERED: LORazepam 1 MG TABLET PO ONE (15:05)
--- NOTE | 2017-12-04 16:07 | PN ---
GI Progress Note Subjective: No acute events Urine tox + for marijuana pepcid and reglan seem to give her abdominal pain and make her "not feel right" She seems to be tolerating solid food however and has not vomited - Objective Vital Signs: Vital Signs Temperature 98.3 F 12/04/17 14:39 Pulse Rate 74 12/04/17 14:39 Respiratory Rate 20 12/04/17 14:39 Blood Pressure 145/100 12/04/17 14:39 O2 Sat by Pulse Oximetry (%) 100 12/04/17 10:00 Constitutional: Calm Eyes: No: Sclera Icterus Cardiovascular: Yes: Regular Rate and Rhythm Respiratory: Yes: CTA Bilaterally Gastrointestinal Inspection: No: Distention ...Auscultate: Yes: Normoactive Bowel Sounds ...Palpate: No: Tenderness ...Percussion: No: Tympanitic Edema: No (No LE edema) Neurological: Yes: Alert, Oriented Labs: CBC, BMP 12/04/17 06:00 12/04/17 06:00 INR, PTT INR 1.06 (0.82-1.09) 12/04/17 06:00 Laboratory Tests 12/04/17 06:00 PT with INR 12.00 H INR 1.06 PTT (Actin FS) 24.5 L Problem List - Problems (1) Gastroparesis Assessment/Plan: Tolerating PO: D/C'd pepcid D/C'd reglan Continue PPI Low fat, diabetic gastroparesis diet. Consider dietitian counseling Advised avoidance of marijuana If persistent vomiting, trial of low dose erythromycin 40mg tid could be considered Dr. Pardo resumes coverage tomorrow 12/05 Code(s): K31.84 - GASTROPARESIS
[2017-12-04] MEDS ORDERED: INSULIN (NOVOLOG) ASPART 100 UNITS/ML 10ML VIAL ONE (20:53)
[2017-12-04] MEDS ORDERED: ERYTHROMYCIN ETHYLSUCCINATE 200 MG/5 ML BTL PO SCH (22:00)
[2017-12-04] MEDS: diphenhydrAMINE HCL 25 MG CAPSULE (FP) PO PRN (22:36)
[2017-12-05] MEDS: INSULIN SLIDING SCALE (NOVOLOG) 1 VIAL SQ SCH ×2 (06:35→11:39)
--- NOTE | 2017-12-05 07:54 | PN ---
Progress Note (short form) - Note Progress Note: Chief Complaint: Events noted, notes reviewed, chest pain resolved, upper abdominal pain improved, denies any further nausea or vomiting, denies any dyspnea History of Present Illness: Seen and examined on telemetry. Events noted, notes reviewed, chest pain resolved, upper abdominal pain improved, denies any further nausea or vomiting, denies any dyspnea As outlined in prior notes EKG's noted no evidence of prolonged QTc, U-wave noted Medications: Current Medications Acetaminophen (Tylenol -) 650 mg PO Q6H PRN PRN Reason: PAIN Last Admin: 12/04/17 22:36 Dose: 650 mg Bacitracin (Bacitracin -) 1 applic TP DAILY [facility] Last Admin: 12/04/17 10:03 Dose: Not Given Diphenhydramine HCl (Benadryl -) 25 mg PO HS PRN PRN Reason: INSOMNIA Last Admin: 12/04/17 22:36 Dose: 25 mg Enoxaparin Sodium (Lovenox -) 40 mg SQ DAILY [facility] Last Admin: 12/04/17 14:56 Dose: 40 mg Insulin Aspart (Novolog Vial Sliding Scale -) 1 vial SQ ACHS [facility] PRN Reason: Protocol Last Admin: 12/05/17 06:35 Dose: 4 units Lorazepam (Ativan -) 1 mg PO Q12H PRN PRN Reason: ANXIETY Last Admin: 12/04/17 22:36 Dose: 1 mg Pantoprazole Sodium (Protonix -) 40 mg PO DAILY [facility] Last Admin: 12/04/17 12:20 Dose: 40 mg Review of Systems Cardiovascular: As noted above Respiratory: denies: denies: Cough or Sputum Production Gastrointestinal: denies: Nausea, Vomiting, Diarrhea, Constipation but reports Abdominal Discomfort Musculoskeletal: No Symptoms Reported Endocrine: No Symptoms Reported Vital Signs: Last Vital Signs Temp Pulse Resp BP Pulse Ox 98.0 F 71 18 116/62 100 12/05/17 06:00 12/05/17 06:00 12/05/17 06:00 12/05/17 06:00 12/04/17 21:00 Intake & Output 12/02/17 12/03/17 12/04/17 12/05/17 23:59 23:59 23:59 23:59 Intake Total 3530 700 425 480 Balance 3530 700 425 480 Weight 158 lb Constitutional: No Distress, Calm Neck: Supple Negative JVD Respiratory: Clear to A&P Bilaterally Cardiovascular: S1 S2 Regular rate Rhythm Grade 1/6 SM Gastrointestinal: Soft Benign Normal Bowel Sounds Ext: No Edema Labs: CBC, BMP 12/04/17 06:00 12/04/17 06:00 Hepatic Panel Total Bilirubin 1.0 mg/dL (0.2-1.0) D 12/04/17 06:00 AST 15 U/L (15-37) 12/04/17 06:00 ALT 21 U/L (12-78) D 12/04/17 06:00 Alkaline Phosphatase 71 U/L (45-117) 12/04/17 06:00 Albumin 3.8 g/dl (3.4-5.0) 12/04/17 06:00 Assessment/Plan ASSESSMENT: 1. Chest pain syndrome (resolved) clinical presentation is not consistent with CAD angina pectoris, no evidence of ACS by EKG criteria or cardiac biochemical markers 2. Nausea, vomiting and persistent abdominal discomfort, probably related to gastro-paresis 3. No evidence of prolonged QTc, U-wave noted 4. Diabetes Mellitus 5. Hypercholesterolemia 6. Heart murmur most likely benign functional murmur 7. Gastro-paresis 8. Anxiety disorder 9. History of substance abuse/Marijuana PLAN: 1. As outlined in prior notes consider the addition of ACEI or ARBS considering her co-morbidities, once her clinical syndrome resolves 2. As outlined in prior notes consider the addition of ASA therapy once her GI symptoms resolve 3. Evaluation and management of the above noted Gastro-paresis as per the primary team 4. Echocardiography to evaluate the above noted heart murmur 5. As outlined in prior notes can be transferred to floor care from the cardiovascular point of view Keri Turner M.D.
[2017-12-05] MEDS ORDERED: PT OWN MED DRAWER 7, Y5N ONE (09:43)
[2017-12-05] MEDS: PANTOPRAZOLE 40 MG TABLET (FP) PO SCH (09:44)
[2017-12-05] MEDS: ENOXAPARIN NA (PORCINE) 40 MG/0.4 ML DISP.SYRIN SQ SCH (09:44)
[2017-12-05] MEDS: BACITRACIN 15 GM TUBE TOPICAL OINTMENT TP SCH (09:47)
[2017-12-05] MEDS: ACETAMINOPHEN 325 MG TABLET (FP) PO PRN (09:55)
[2017-12-05] MEDS: LORazepam 1 MG TABLET PO PRN (11:34)
--- NOTE | 2017-12-05 11:35 | EKG ---
Test Reason : Blood Pressure : / mmHG Vent. Rate : 066 BPM Atrial Rate : 066 BPM P-R Int : 142 ms QRS Dur : 068 ms QT Int : 406 ms P-R-T Axes : 022 050 036 degrees QTc Int : 425 ms NORMAL SINUS RHYTHM NORMAL ECG WHEN COMPARED WITH ECG OF 03-DEC-2017 15:34, NO SIGNIFICANT CHANGE WAS FOUND Confirmed by RONY RODGERS MD ([id number]) on 12/05/2017 11:34:49 AM Referred By: Confirmed By:RONY RODGERS MD
[2017-12-05] MEDS ORDERED: ACETAMINOPHEN 325 MG TABLET (FP) PO PRN (11:59)
--- NOTE | 2017-12-05 12:34 | PN ---
Progress Note, Physician History of Present Illness: Gastroparesis as documented by GES. US liver results reviewed. Feels better. The findings discussed. Diet and medical treatment of gastroparesis discussed. Cannot tolerate Reglan - Current Medication List Current Medications: Active Medications Acetaminophen (Tylenol -) 650 mg PO Q4H PRN PRN Reason: PAIN Bacitracin (Bacitracin -) 1 applic TP DAILY [facility] Last Admin: 12/05/17 09:47 Dose: 1 applic Diphenhydramine HCl (Benadryl -) 25 mg PO HS PRN PRN Reason: INSOMNIA Last Admin: 12/04/17 22:36 Dose: 25 mg Enoxaparin Sodium (Lovenox -) 40 mg SQ DAILY [facility] Last Admin: 12/05/17 09:44 Dose: 40 mg Insulin Aspart (Novolog Vial Sliding Scale -) 1 vial SQ ACHS [facility] PRN Reason: Protocol Last Admin: 12/05/17 11:39 Dose: 8 units Lorazepam (Ativan -) 1 mg PO Q12H PRN PRN Reason: ANXIETY Last Admin: 12/05/17 11:34 Dose: 1 mg Pantoprazole Sodium (Protonix -) 40 mg PO DAILY [facility] Last Admin: 12/05/17 09:44 Dose: 40 mg - Objective Vital Signs: Vital Signs Temperature 98 F 12/05/17 10:00 Pulse Rate 79 12/05/17 10:00 Respiratory Rate 18 12/05/17 10:00 Blood Pressure 134/81 12/05/17 10:00 O2 Sat by Pulse Oximetry (%) 100 12/05/17 09:00 Constitutional: Yes: Well Nourished, No Distress, Calm Eyes: Yes: Conjunctiva Clear HENT: Yes: Atraumatic Neck: Yes: Supple Gastrointestinal: Yes: Normal Bowel Sounds, Soft. No: Rectal Bleeding, Tenderness, Vomiting Labs: CBC, BMP 12/04/17 06:00 12/04/17 06:00 INR, PTT INR 1.06 (0.82-1.09) 12/04/17 06:00 Laboratory Results - last 24 hr 12/04/17 12/04/17 12/04/17 12:19 17:23 22:28 POC Glucometer 251 299 244 12/05/17 12/05/17 06:34 11:37 POC Glucometer 231 326 - ....Imaging Cat Scan: Report Reviewed Ultrasound: Report Reviewed Other: Pending (GES) Problem List - Problems (1) Nausea Code(s): R11.0 - NAUSEA (2) Constipation Code(s): K59.00 - CONSTIPATION, UNSPECIFIED (3) Diabetic gastroparesis Code(s): E11.43 - TYPE 2 DIABETES W DIABETIC AUTONOMIC (POLY)NEUROPATHY; K31.84 - GASTROPARESIS Assessment/Plan Gastroperesis diet as discussed, if not effective add erythromycin 4 days on 3 days off. Maintain blood glucose under 180 if possible Miralax bid Stool for H. pylori ag pending
[2017-12-05 13:59] VITALS: BP 127/80; PULSE 84; TEMP 98.1
--- NOTE | 2017-12-05 15:24 | DS ---
Physical Exam: SUBJECTIVE: Patient seen and examined. She had some earlier abdominal pain, improved with tylenol. Anxiety persists when pain arises, relieved with ativan OBJECTIVE: Vital Signs Period Temp Pulse Resp BP Sys/Powell Pulse Ox Last 24 Hr 97.6 F-98.1 F 71-84 18-18 108-163/62-100 100-100 PE Neuro: alert, awake, cn 2-12intact Pulm: CTAB CV: s1 s2 rrr Abd: s nt nd + bs Ext: Warm, no le edema Laboratory Results - last 24 hr 12/04/17 12/04/17 12/05/17 17:23 22:28 06:34 POC Glucometer 299 244 231 12/05/17 11:37 POC Glucometer 326 HOSPITAL COURSE: Date of Admission:12/02/17 Date of Discharge: 12/05/17 Minutes to complete discharge: 37 Discharge Summary Reason For Visit: GASTROPARESIS Current Active Problems Constipation (Acute) Diabetic gastroparesis (Acute) Gastroparesis (Acute) Nausea (Acute) Vomiting (Acute) Hospital Course: Hospital Course: 32 year old female with a significant past medical history of diabetes mellitus and hypercholesterolemia presented to the ED with complaints of persistent midsternal chest pain accompanied by nausea and vomiting. Her symptoms date back to August 2017. Pt had a gastric emptying NM study done with an abdominal ultrasound. Patient treated for gastropharesis, to follow up in office in 1 week Unable to tolerate reglan H pylori cultures sent, to be followed with Dr. Kelley Negative work up for Chest pain/ ACS, can follow as outpt, ECHO nmvl lv size fxn Started on TRI for DM II Ativan for anxiety, d/w to follow up with pcp for refill Pt aware and agrees to above plan PCP referral enclosed as requested Condition: Stable - Instructions Diet, Activity, Other Instructions: Please return to the ED for any new, persistent, worsening symptoms. Follow up with Dr. Kelley in 1 week. Follow up on H. Pylori stool studies. Referral for primary care doctor enclosed Continue insulin as directed Start low dose lisinopril 5mg daily Referrals: Max Kelley MD [Staff Physician] - Marc Simpson MD [Staff Physician] - Cristhian Sorto MD [Staff Physician] - Disposition: HOME - Home Medications Comprehensive Discharge Medication List: Ambulatory Orders Insulin Glargine,Hum.rec.anlog [Lantus Solostar PEN -] 50 units SQ BID 06/24/16 Insulin Lispro [Humalog] 10 units SQ PRN 08/31/17 Lisinopril 5 mg PO DAILY #30 tablet 12/05/17 This patient is new to me today: Yes Date on this admission: 12/06/17 Emergency Visit: Yes ED Registration Date: 12/02/17 Care time: The patient presented to the Emergency Department on the above date and was hospitalized for further evaluation of their emergent condition. Critical Care patient: No - Discharge Referral Referred to [facility] Med [facility].: No
== END 2017-12-05 16:15 | disposition home or self-care (01) | DRG 48 ==
LOC: JER 11:07 → JERBED 14:12 → J4S 17:45 → OBSVTOIN 20:18
PROVIDERS: ADMIT Internal Medicine; ATTEND Nurse Practitioner Acute Care
DX: E11.43 Type 2 diabetes mellitus with diabetic autonomic (poly)neuropathy (principal); K59.00 Constipation, unspecified; R11.2 Nausea with vomiting, unspecified; E87.6 Hypokalemia; R01.1 Cardiac murmur, unspecified; F41.9 Anxiety disorder, unspecified; E78.00 Pure hypercholesterolemia, unspecified; K31.84 Gastroparesis; R07.89 Other chest pain; Z72.0 Tobacco use; Z79.4 Long term (current) use of insulin
CPT/HCPCS: 36415; 70470-TC; 71045-TC; 80053; 80061; 80307; 81003; 81015; 82009; 82962; 83036; 83721; 83735; 84132; 84443; 84484; 84703; 85025; 85610; 85730; 87086; 87338; 93005; 93010; 93306-TC; 94640; 99285-25; G0378

== ENCOUNTER 2018-02-15 21:36 | Emergency (ER) | payer OTHER ==
--- NOTE | 2018-02-15 21:43 | PDOC ---
Rapid Medical Evaluation Time Seen by Provider: 02/15/18 21:42 Medical Evaluation: Allergies Allergy/AdvReac Type Severity Reaction Status Date / Time shellfish derived Allergy Verified 12/02/17 11:24 02/15/18 21:43 I have performed a brief in-person evaluation of this patient. The patient presents with a chief complaint of: n/v x 2 days. H/o IDDM, hpylori , currently being w/u for possible gastroparesis (chronic n/v-s/p admission for same at [facility] 12/08), cannibus use Pertinent physical exam findings:Tachy no 116, w/ unremarkable exam otherwise I have ordered the following:labs The patient will proceed to the ED for further evaluation. Discharge Disposition - Diagnosis Nausea and vomiting Qualifiers: Vomiting type: unspecified Vomiting Intractability: intractable Qualified Code( s): R11.2 - Nausea with vomiting, unspecified - Referrals Referrals: Maira Oswald MD [Primary Care Provider] - - Patient Instructions - Post Discharge Activity
[2018-02-15 21:50] VITALS: BP 118/87; PULSE 116; TEMP 98; BMI 21.2
[2018-02-15] MEDS ORDERED: SODIUM CHLORIDE 1,000 ML IV STA (22:28)
[2018-02-15] MEDS ORDERED: DICYCLOMINE HCL 20 MG/2 ML AMPUL IM ONE (22:31)
--- NOTE | 2018-02-15 22:32 | PDOC ---
History of Present Illness - General History Source: Patient Exam Limitations: No Limitations - History of Present Illness Initial Comments: 02/15/18 22:40 The patient is a 32-year-old female, with a significant past medical history of diabetes and hypercholesterolemia, who presents to the ED with her typical gastroparesis that began 2 days ago. She is complaining of diffuse abdominal pain that is worse in the epigastric region. She describes the pain as crampy in nature, accompanied nausea and vomiting, but no diarrhea. The patient denies any fever or chills. Denies any urinary complaints. Denies any recent sick contacts. 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 Max Kelley <Kayla Durham - Last Filed: 02/15/18 22:40> - General History Source: Patient <Benedict Burris - Last Filed: 02/16/18 01:18> - General Chief Complaint: Pain Stated Complaint: PAIN Time Seen by Provider: 02/15/18 21:42 Past History <Kayla Durham - Last Filed: 02/15/18 22:40> - Past Medical History Asthma: Yes CVA: No COPD: No Diabetes: Yes Hypercholesterolemia: Yes - Surgical History Abdominal Surgery: Yes Cholecystectomy: Yes - Immunization History Immunization Up to Date: Yes - Suicide/Smoking/Psychosocial Hx Smoking History: Current some day smoker Have you smoked in the past 12 months: Yes Number of Cigarettes Smoked Daily: 5 Information on smoking cessation initiated: No 'Breaking Loose' booklet given: 11/07/17 Hx Alcohol Use: No Drug/Substance Use Hx: Yes (Marijuana) Substance Use Type: Marijuana Hx Substance Use Treatment: No <Benedict Burris - Last Filed: 02/16/18 01:18> - Past Medical History Allergies/Adverse Reactions: Allergies Allergy/AdvReac Type Severity Reaction Status Date / Time shellfish derived Allergy Verified 02/15/18 21:46 Home Medications: Ambulatory Orders Insulin Glargine,Hum.rec.anlog [Lantus Solostar PEN -] 50 units SQ BID 06/24/16 Insulin Lispro [Humalog] 10 units SQ PRN 08/31/17 LORazepam [Ativan] 1 mg PO BID PRN #4 tablet MDD 2 12/05/17 Lisinopril 5 mg PO DAILY #30 tablet 12/05/17 Diphenhydramine HCl [Benadryl Capsules -] 25 mg PO TID #30 capsule 02/16/18 Trimethobenzamide HCl [Tigan -] 300 mg PO QID #60 capsule 02/16/18 Review of Systems - Review of Systems Able to Perform ROS?: Yes Comments:: 02/15/18 22:40 CONSTITUTIONAL: Absent: fever, chills, diaphoresis, generalized weakness, malaise, loss of appetite HEENT: Absent: rhinorrhea, nasal congestion, throat pain, throat swelling, difficulty swallowing, mouth swelling, ear pain, eye pain, visual Changes CARDIOVASCULAR: Absent: chest pain, syncope, palpitations, irregular heart rate, lightheadedness , peripheral edema RESPIRATORY: Absent: cough, shortness of breath, dyspnea with exertion, orthopnea, wheezing, stridor, hemoptysis GASTROINTESTINAL: Present: abdominal pain, nausea, vomiting Absent: abdominal distension, diarrhea, constipation, melena, hematochezia GENITOURINARY: Absent: dysuria, frequency, urgency, hesitancy, hematuria, flank pain, genital pain MUSCULOSKELETAL: Absent: myalgia, arthralgia, joint swelling SKIN: Absent: rash, itching, pallor HEMATOLOGIC/IMMUNOLOGIC: Absent: easy bleeding, easy bruising, lymphadenopathy, frequent infections ENDOCRINE: Absent: unexplained weight gain, unexplained weight loss, heat intolerance, cold intolerance NEUROLOGIC: Absent: headache, focal weakness or paresthesias, dizziness, unsteady gait, seizure, mental status changes, bladder or bowel incontinence PSYCHIATRIC: Absent: anxiety, depression, suicidal or homicidal ideation, hallucinations. <Kayla Durham - Last Filed: 02/15/18 22:40> *Physical Exam - Vital Signs Last Vital Signs Temp Pulse Resp BP Pulse Ox 98.0 F 116 H 20 118/87 99 02/15/18 21:46 02/15/18 21:46 02/15/18 21:46 02/15/18 21:46 02/15/18 21:46 - Physical Exam Comments: 02/15/18 22:42 GENERAL: (+)Moderate distress. Well developed, well nourished. Awake and alert. HEENT: Normocephalic, atraumatic. PERRLA, EOMI. No conjunctival pallor. Sclera are non- icteric. Moist mucous membranes. Oropharynx is clear. NECK: Supple. Full ROM. No JVD. Carotid pulses 2+ and symmetric, without bruits. No thyromegaly. No lymphadenopathy. CARDIOVASCULAR: Regular rate and rhythm. No murmurs, rubs, or gallops. Distal pulses are 2+ and symmetric. PULMONARY: No evidence of respiratory distress. Lungs clear to auscultation bilaterally. No wheezing, rales or rhonchi. ABDOMINAL: (+)Diffusely tender in the abdomen but worse in the epigastric region. Soft. Non -distended. No rebound or guarding. No organomegaly. Normoactive bowel sounds. MUSCULOSKELETAL Normal range of motion at all joints. No bony deformities or tenderness. No CVA tenderness. EXTREMITIES: No cyanosis. No clubbing. No edema. No calf tenderness. SKIN: Warm and dry. Normal capillary refill. No rashes. No jaundice. NEUROLOGICAL: Alert, awake, appropriate. PSYCHIATRIC: Cooperative. Good eye contact. Appropriate mood and affect. <Kayla Durham - Last Filed: 02/15/18 22:40> - Vital Signs Last Vital Signs Temp Pulse Resp BP Pulse Ox 98.0 F 116 H 20 118/87 99 02/15/18 21:46 02/15/18 21:46 02/15/18 21:46 02/15/18 21:46 02/15/18 21:46 <Benedict Burris - Last Filed: 02/16/18 01:18> ED Treatment Course - LABORATORY CBC & Chemistry Diagram: 02/15/18 22:50 02/15/18 22:50 <Benedict Burris - Last Filed: 02/16/18 01:18> Medical Decision Making - Medical Decision Making 02/16/18 01:17 Dr. Burris: The scribe's documentation has been prepared under my direction and personally reviewed by me in its entirery. I confirm that the note above accurately reflects all work, treatment, procedures, and medical decision making performed by me Pt glucose is in the 200's. Pt feels better as she is able to tolerated PO fluids without vomiting. Pt to follow up with GI. <Benedict Burris - Last Filed: 02/16/18 01:18> *DC/Admit/Observation/Transfer - Attestations Scribe Attestion: 02/15/18 22:43 Documentation prepared by Kayla Durham, acting as medical surgical tech for Benedict Burris MD. <Kayla Durham - Last Filed: 02/15/18 22:40> - Discharge Dispostion Admit: No <Benedict Burris - Last Filed: 02/16/18 01:18> Diagnosis at time of Disposition: Diabetic gastroparesis Nausea and vomiting Qualifiers: Vomiting type: unspecified Vomiting Intractability: intractable Qualified Code( s): R11.2 - Nausea with vomiting, unspecified - Discharge Dispostion Disposition: HOME Condition at time of disposition: Improved - Prescriptions Prescriptions: Diphenhydramine HCl [Benadryl Capsules -] 25 mg PO TID #30 capsule Trimethobenzamide HCl [Tigan -] 300 mg PO QID #60 capsule - Referrals Referrals: Maira Oswald MD [Primary Care Provider] - Cisco Mariee MD [Staff Physician] - Matt Drummond MD [Staff Physician] - - Patient Instructions Printed Discharge Instructions: Nausea and Vomiting-Adult Additional Instructions: please follow up with the doctors referred to you as soon as possible. TAke medications as directed, - Post Discharge Activity
[2018-02-15] MEDS ORDERED: TRIMETHOBENZAMIDE HCL 200MG/2ML INJ IM ONE (22:33)
[2018-02-15 22:57] LABS: HCG,QUALITATIVE URINE NEGATIVE
[2018-02-15 23:00] LABS: URINE APPEARANCE SLCLOUDY; URINE BLOOD NEGATIVE (NEGATIVE); URINE COLOR AMBER; URINE GLUCOSE (UA) 2+ (NEGATIVE); URINE KETONE NEGATIVE (NEGATIVE); URINE LEUK ESTERASE NEGATIVE (NEGATIVE); URINE NITRITE NEGATIVE (NEGATIVE)
[2018-02-15 23:01] LABS: BASO % 0.5 % (0-2.0); EOS % 0.8 % (0-4.5); HEMATOCRIT 40.8 % (32.4-45.2); HEMOGLOBIN 14.2 GM/dL (10.7-15.3); LYMPH % 27.8 % (8-40); MCH 29.9 pg (25.7-33.7); MCHC 34.8 g/dl (32.0-36.0); MEAN PLT VOLUME 8.1 fl (7.5-11.1); MONO % 10.9 % (3.8-10.2); PLATELET COUNT 299 K/MM3 (134-434); RBC 4.75 M/mm3 (3.60-5.2); RDW 14.3 % (11.6-15.6); WHITE BLOOD COUNT 7.5 K/mm3 (4.0-10.0)
[2018-02-15 23:01] LABS: URINE PROTEIN 2+ (NEGATIVE)
[2018-02-15 23:02] LABS: EPI CELLS FEW /HPF (FEW); URINE MUCUS MANY
[2018-02-15] MEDS ORDERED: DEXTROSE 5%-0.45% SALINE 1,000 ML IV SCH (23:15)
[2018-02-15 23:44] LABS: ALBUMIN 4.2 g/dl (3.4-5.0); ANION GAP 9 (8-16); CALCIUM 9.6 mg/dL (8.5-10.1); CHLORIDE 100 mmol/L (98-107); CO2 33 mmol/L (21-32); CREATININE 0.7 mg/dL (0.55-1.02); GLUCOSE,RANDOM 51 mg/dL (74-106); POTASSIUM 3.3 mmol/L (3.5-5.1); SGOT/AST 17 U/L (15-37); SGPT/ALT 18 U/L (12-78); SODIUM 142 mmol/L (136-145)
[2018-02-15 23:45] LABS: ALK PHOS 72 U/L (45-117); TOT PROT 7.6 g/dl (6.4-8.2)
[2018-02-16] MEDS ORDERED: POTASSIUM CHLORIDE ORAL LIQUID 20 MEQ/15 ML PO ONE (00:16)
[2018-02-16] MEDS ORDERED: POTASSIUM CHLORIDE TABS 20 MEQ TABLET.ER (FP) PO ONE (00:27)
[2018-02-16 00:37] LABS: BLOOD UREA NITROGEN 8 mg/dL (7-18)
[2018-02-16 03:09] LABS: MAGNESIUM 2.1 mg/dL (1.8-2.4)
== END 2018-02-16 01:35 | disposition home or self-care (01) ==
LOC: JER 21:36
PROC: 3E033GC Introduction of Other Therapeutic Substance into Peripheral Vein, Percutaneous Approach (ICD-10-PCS; principal; 2018-02-15)
PROC: 3E0337Z Introduction of Electrolytic and Water Balance Substance into Peripheral Vein, Percutaneous Approach (ICD-10-PCS; 2018-02-15)
DX: E11.43 Type 2 diabetes mellitus with diabetic autonomic (poly)neuropathy (principal); K31.84 Gastroparesis; R11.2 Nausea with vomiting, unspecified; E78.00 Pure hypercholesterolemia, unspecified
CPT/HCPCS: 36415; 80053; 81003; 81015; 82150; 82962; 83690; 83735; 84703; 85025; 99283-25; J7030

== ENCOUNTER 2018-02-16 16:48 | Emergency (ER) | payer OTHER ==
[2018-02-16 17:14] VITALS: BP 132/96; PULSE 112; TEMP 97.8; BMI 21.2
[2018-02-16] MEDS ORDERED: SODIUM CHLORIDE 1,000 ML IV STA (17:15)
[2018-02-16] MEDS ORDERED: ONDANSETRON 4 MG/2 ML VIAL IVPUSH ONE (17:15)
--- NOTE | 2018-02-16 17:19 | PDOC ---
Rapid Medical Evaluation Chief Complaint: Pain, Acute Time Seen by Provider: 02/16/18 17:10 Medical Evaluation: Allergies Allergy/AdvReac Type Severity Reaction Status Date / Time shellfish derived Allergy Verified 02/16/18 17:10 Vital Signs Temp Pulse Resp BP Pulse Ox 97.8 F 112 H 19 132/96 100 02/16/18 17:10 02/16/18 17:10 02/16/18 17:10 02/16/18 17:10 02/16/18 17:10 02/16/18 17:17 The patient presents with a chief complaint of: Abdominal pain x3 days. Pt. was seen last night for similar pain d/t her gastroparesis. Pt. states that after she was discharged the pain came back about an hour later. She is unable to keep any food or liquids down. States the pain is a 10/10 and also states she has chest pain. I have performed a brief in-person evaluation of this patient; Pertinent physical exam findings: ambulatory, in no respiratory distress. In moderated distress holding stomach. TTP epigastric region/RUQ I have ordered the following: CBc, CMP, Lipase, UA, UC, Zofran, IVF The patient will proceed to the ED for further evaluation.
--- NOTE | 2018-02-16 17:40 | PDOC ---
History of Present Illness - General History Source: Patient Exam Limitations: No Limitations - History of Present Illness Initial Comments: 02/16/18 18:07 The patient is a 32 year old female, with a significant past medical history of type 1 diabetes mellitus, hypercholesterolemia, gastroparesis (recently diagnosed in November by Dr. Kedar Thomas at [facility]), who presents to the emergency department with, persistent nausea and emesis (bilious, non bloody) for one day. The patient states she has not been able to tolerate PO today and has been experiencing persistent nausea with vomiting since leaving the ED last night after being seen for the exact same complaint of nausea and emesis. The patient also states she has also been constipated as she has not been able to tolerate her Miralax medication. However, the patient reports a small BM earlier this morning (denies diarrhea, melena or hematochezia). The patient states she was supposed to see a surgeon for a gastric pacemaker but has not been able to secondary to insurance issues. The patient also reports a burning sensation in her chest secondary to the vomiting. The patient reports she has lost approx 40 lbs since August. The patient states she has been compliant with her insulin. She denies recent fevers, chills, headache or dizziness. She denies recent diarrhea. She denies recent dysuria, frequency, urgency or hematuria. She denies recent chest pain or shortness of breath. Allergies: shellfish derived Social history: Social drinker. She denies any tobacco use. 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 <David Parker - Last Filed: 02/16/18 19:18> <Tuyet Mena - Last Filed: 02/16/18 20:58> - General Chief Complaint: Pain, Acute Stated Complaint: PAIN Time Seen by Provider: 02/16/18 17:10 Past History <David Parker - Last Filed: 02/16/18 19:18> - Past Medical History Asthma: Yes CVA: No COPD: No Diabetes: Yes Hypercholesterolemia: Yes - Surgical History Abdominal Surgery: Yes Cholecystectomy: Yes - Immunization History Immunization Up to Date: Yes - Suicide/Smoking/Psychosocial Hx Smoking History: Current some day smoker Have you smoked in the past 12 months: Yes Number of Cigarettes Smoked Daily: 5 Information on smoking cessation initiated: No 'Breaking Loose' booklet given: 11/07/17 Hx Alcohol Use: No Drug/Substance Use Hx: Yes (Marijuana) Substance Use Type: Marijuana Hx Substance Use Treatment: No <Tuyet Mena - Last Filed: 02/16/18 20:58> - Past Medical History Allergies/Adverse Reactions: Allergies Allergy/AdvReac Type Severity Reaction Status Date / Time shellfish derived Allergy Verified 02/16/18 17:10 Home Medications: Ambulatory Orders Insulin Glargine,Hum.rec.anlog [Lantus Solostar PEN -] 50 units SQ BID 06/24/16 Insulin Lispro [Humalog] 10 units SQ PRN 08/31/17 LORazepam [Ativan] 1 mg PO BID PRN #4 tablet MDD 2 12/05/17 Lisinopril 5 mg PO DAILY #30 tablet 12/05/17 Dicyclomine HCl [Bentyl] 20 mg PO Q6H #30 tablet 02/16/18 Trimethobenzamide HCl [Tigan -] 300 mg PO QID #60 capsule 02/16/18 Review of Systems - Review of Systems Comments:: 02/16/18 18:08 GENERAL/CONSTITUTIONAL: No fever or chills. No weakness. HEAD, EYES, EARS, NOSE AND THROAT: No change in vision. No ear pain or discharge. No sore throat. CARDIOVASCULAR: No chest pain or shortness of breath. RESPIRATORY: No cough, wheezing, or hemoptysis. GASTROINTESTINAL: +Nausea. +Vomiting. +Constipation. No diarrhea. GENITOURINARY: No dysuria, frequency, or change in urination. MUSCULOSKELETAL: No joint or muscle swelling or pain. No neck or back pain. SKIN: No rash NEUROLOGIC: No headache, vertigo, loss of consciousness, or change in strength/ sensation. ENDOCRINE: +Recent weight loss. No increased thirst. HEMATOLOGIC/LYMPHATIC: No anemia, easy bleeding, or history of blood clots. ALLERGIC/IMMUNOLOGIC: No hives or skin allergy. <David Parker - Last Filed: 02/16/18 19:18> *Physical Exam - Vital Signs Last Vital Signs Temp Pulse Resp BP Pulse Ox 97.8 F 112 H 19 132/96 100 02/16/18 17:10 02/16/18 17:10 02/16/18 17:10 02/16/18 17:10 02/16/18 17:10 - Physical Exam Comments: 02/16/18 18:13 GENERAL: +Looks uncomfortable. Awake, alert, and fully oriented. HEAD: No signs of trauma EYES: PERRLA, EOMI, sclera anicteric, conjunctiva clear ENT: Auricles normal inspection, hearing grossly normal, nares patent, oropharynx clear without exudates. Moist mucosa NECK: Normal ROM, supple, no lymphadenopathy, JVD, or masses LUNGS: Breath sounds equal, clear to auscultation bilaterally. No wheezes, and no crackles HEART: +Tachycardia. Regular rhythm, normal S1 and S2, no murmurs, rubs or gallops ABDOMEN: +Diffusely tender. No guarding, no rebound. No masses. Soft. EXTREMITIES: Normal range of motion, no edema. No clubbing or cyanosis. No cords, erythema, or tenderness NEUROLOGICAL: Cranial nerves II through XII grossly intact. Normal speech, normal gait SKIN: Warm, Dry, normal turgor, no rashes or lesions noted. <David Parker - Last Filed: 02/16/18 19:18> - Vital Signs Last Vital Signs Temp Pulse Resp BP Pulse Ox 97.8 F 112 H 19 132/96 100 02/16/18 17:10 02/16/18 17:10 02/16/18 17:10 02/16/18 17:10 02/16/18 17:10 <Tuyet Mena - Last Filed: 02/16/18 20:58> Heart Score/ECG Review - ECG Intrepretation Comment:: 02/16/18 19:56 sinus at 84, nl axis, nl interval, no acute st.t wave findings, poor r wave progression <Tuyet Mena - Last Filed: 02/16/18 20:58> ED Treatment Course - LABORATORY CBC & Chemistry Diagram: 02/16/18 17:25 02/16/18 17:25 - ADDITIONAL ORDERS Additional order review: Laboratory Results 02/16/18 17:35 Urine Color Yellow Urine Appearance Clear Urine pH 6.0 Ur Specific [place] 1.020 Urine Protein Negative Urine Glucose (UA) Negative Urine Ketones Trace H Urine Blood Negative Urine Nitrite Negative Urine Bilirubin Negative Urine Urobilinogen 4.0 e.u/dl H Ur Leukocyte Esterase Negative 02/16/18 17:25 RBC 4.54 MCV 87.1 MCHC 34.4 RDW 14.3 MPV 8.6 Neutrophils % 62.5 Lymphocytes % 25.8 Monocytes % 10.2 Eosinophils % 1.0 Basophils % 0.5 <David Parker - Last Filed: 02/16/18 19:18> - LABORATORY CBC & Chemistry Diagram: 02/16/18 17:25 02/16/18 17:25 <Tuyet Mena - Last Filed: 02/16/18 20:58> Medical Decision Making - Medical Decision Making 02/16/18 17:53 a/p: 32yo female with persistent n/v - dx with gastroparesis - secondary to DM -on insulin -n/v - seen in the ED last night - controlled with tigan and bentyl -states pepcid, zofran, reglan don't work -diffuse abd pain - but without focal ttp - most likely secondary to forceful vomiting -40lb wt loss since august due to gastroparesis -will need rectal exam -poss need fecal disimpaction/enema to assist with constipation -will check labs, cxr, abd xray, ekg -medicate, hydrate 02/16/18 20:54 attempted to re-eval the patient but she has eloped from the ED iv was removed by the nurse prior to this because it wasn't functional attempting to place new line - nurse was obtaining IV supplies and the patient walked out 02/16/18 20:56 pt has eloped from the ED <Tuyet Mena - Last Filed: 02/16/18 20:58> *DC/Admit/Observation/Transfer - Attestations Scribe Attestion: 02/16/18 18:15 Documentation prepared by David Parker, acting as medical instrument technician for Tuyet Mena DO. <David Parker - Last Filed: 02/16/18 19:18> - Discharge Dispostion Admit: No - Attestations Physician Attestion: 02/16/18 20:58 I, Dr. Tuyet Mena DO, attest that this document has been prepared under my direction and personally reviewed by me in its entirety. I further attest, that it accurately reflects all work, treatment, procedures and medical decision -making performed by me. <Tuyet Mena - Last Filed: 02/16/18 20:58> Diagnosis at time of Disposition: Nausea and vomiting - Discharge Dispostion Disposition: ELOPED Condition at time of disposition: Unchanged/Unknown - Referrals Referrals: Maira Oswald MD [Primary Care Provider] - - Patient Instructions - Post Discharge Activity
[2018-02-16] MEDS ORDERED: DICYCLOMINE HCL 20 MG/2 ML AMPUL IM ONE (17:50)
[2018-02-16] MEDS ORDERED: TRIMETHOBENZAMIDE HCL 200MG/2ML INJ IM ONE (17:50)
[2018-02-16] MEDS ORDERED: SODIUM CHLORIDE 0.9% 1000 ML INFUS.BAG IV ONE (17:50)
[2018-02-16 18:01] LABS: URINE APPEARANCE CLEAR; URINE BILIRUBIN NEGATIVE (<2.0 mg/dL); URINE BLOOD NEGATIVE (NEGATIVE); URINE COLOR YELLOW; URINE GLUCOSE (UA) NEGATIVE (NEGATIVE); URINE KETONE TRACE (NEGATIVE); URINE LEUK ESTERASE NEGATIVE (NEGATIVE); URINE NITRITE NEGATIVE (NEGATIVE); URINE PROTEIN NEGATIVE (NEGATIVE); URINE UROBILINOGEN 4.0 E.U/dl mg/dL (0.2-1.0)
[2018-02-16 18:02] LABS: BASO % 0.5 % (0-2.0); HEMATOCRIT 39.5 % (32.4-45.2); HEMOGLOBIN 13.6 GM/dL (10.7-15.3); LYMPH % 25.8 % (8-40); MCH 29.9 pg (25.7-33.7); MCHC 34.4 g/dl (32.0-36.0); MEAN CELL VOLUME 87.1 fl (80-96); MEAN PLT VOLUME 8.6 fl (7.5-11.1); MONO % 10.2 % (3.8-10.2); NEUT % 62.5 % (42.8-82.8); PLATELET COUNT 280 K/MM3 (134-434); RBC 4.54 M/mm3 (3.60-5.2); RDW 14.3 % (11.6-15.6); WHITE BLOOD COUNT 5.2 K/mm3 (4.0-10.0)
[2018-02-16] MEDS ORDERED: PROMETHAZINE HCL 25 MG/1 ML VIAL IVPB ONE (18:16)
[2018-02-16] MEDS ORDERED: PROMETHAZINE HCL 25 MG/1 ML VIAL ONE (18:23)
[2018-02-16 18:52] LABS: ANION GAP 8 (8-16); BLOOD UREA NITROGEN 6 mg/dL (7-18); CALCIUM 9.2 mg/dL (8.5-10.1); CHLORIDE 102 mmol/L (98-107); CO2 29 mmol/L (21-32); CREATININE 0.6 mg/dL (0.55-1.02); GLUCOSE,RANDOM 129 mg/dL (74-106); POTASSIUM 3.8 mmol/L (3.5-5.1); SGOT/AST 25 U/L (15-37); SGPT/ALT 14 U/L (12-78); SODIUM 139 mmol/L (136-145)
[2018-02-16 18:55] LABS: ALK PHOS 70 U/L (45-117); TOT PROT 7.5 g/dl (6.4-8.2)
--- NOTE | 2018-02-17 09:55 | EKG ---
Test Reason : Blood Pressure : / mmHG Vent. Rate : 084 BPM Atrial Rate : 084 BPM P-R Int : 150 ms QRS Dur : 066 ms QT Int : 382 ms P-R-T Axes : 056 074 063 degrees QTc Int : 451 ms POOR DATA QUALITY, INTERPRETATION MAY BE ADVERSELY AFFECTED NORMAL SINUS RHYTHM NORMAL ECG WHEN COMPARED WITH ECG OF 04-DEC-2017 05:34, NO SIGNIFICANT CHANGE WAS FOUND Confirmed by KRISTEL HAQUE MD ([id number]) on 02/17/2018 9:55:39 AM Referred By: Confirmed By:KRISTEL HAQUE MD
== END 2018-02-16 20:30 | disposition left against medical advice (07) ==
LOC: JER 16:48
DX: E10.43 Type 1 diabetes mellitus with diabetic autonomic (poly)neuropathy (principal); K31.84 Gastroparesis; Z79.4 Long term (current) use of insulin; E78.00 Pure hypercholesterolemia, unspecified; I10 Essential (primary) hypertension; F17.210 Nicotine dependence, cigarettes, uncomplicated; Z91.013 Allergy to seafood
CPT/HCPCS: 36415; 80053; 81003; 83690; 84702; 85025; 87086; 93005; 93010; 99283-25; J7030

== ENCOUNTER 2018-03-14 18:16 | Emergency (ER) | payer OTHER ==
[2018-03-14 18:45] VITALS: TEMP 98.5; BMI 21.2
--- NOTE | 2018-03-14 19:24 | PDOC ---
History of Present Illness - General History Source: Patient Exam Limitations: No Limitations - History of Present Illness Initial Comments: 03/14/18 19:37 The patient is a 32 year old female with a significant PMH of diabetes, gastroparesis, hyperlipidemia, and asthma who presents to the emergency department with persistent vomiting over the past 2 days. The patient also reports associated diffuse body aches and decreased appetite with her vomiting. She states she has been unable to tolerate solid PO for the past 2 days and only minimal liquid PO. She reports she has remained compliant with her antiemetic medications. The patient denies fevers or chills. She denies diarrhea or constipation. As per old records, the patient has been admitted in the past for gastroparesis. The patient denies chest pain, shortness of breath, headache and dizziness. Denies dysuria, frequency, urgency and hematuria. Allergies: NKDA, Shellfish. Past surgical history: Cholecystectomy. Social history: Marijuana use. Current everyday smoker. No reported alcohol use. PCP: None reported. <Manpreet Hillman - Last Filed: 03/14/18 19:37> - General History Source: Patient <Benedict Burris - Last Filed: 03/15/18 00:36> - General Chief Complaint: Pain, Acute Stated Complaint: STOMACH PAIN Time Seen by Provider: 03/14/18 19:22 Past History <Manpreet Hillman - Last Filed: 03/14/18 19:37> - Past Medical History Asthma: Yes CVA: No COPD: No Diabetes: Yes (IDDM) Hypercholesterolemia: Yes - Surgical History Abdominal Surgery: Yes Cholecystectomy: Yes - Immunization History Immunization Up to Date: Yes - Suicide/Smoking/Psychosocial Hx Smoking History: Current some day smoker Have you smoked in the past 12 months: Yes Number of Cigarettes Smoked Daily: 5 Information on smoking cessation initiated: No 'Breaking Loose' booklet given: 11/07/17 Hx Alcohol Use: No Drug/Substance Use Hx: Yes (MARIJUANA) Substance Use Type: Marijuana Hx Substance Use Treatment: No <Benedict Burris - Last Filed: 03/15/18 00:36> - Past Medical History Allergies/Adverse Reactions: Allergies Allergy/AdvReac Type Severity Reaction Status Date / Time shellfish derived Allergy Verified 03/14/18 18:41 Home Medications: Ambulatory Orders Gabapentin [Neurontin -] 300 mg PO TID 03/14/18 Insulin Glargine,Hum.rec.anlog [Lantus] 30 unit SQ HS 03/14/18 Insulin Glargine,Hum.rec.anlog [Lantus] 40 unit SQ DAILY 03/14/18 Omeprazole 20 mg PO DAILY 03/14/18 Polyethylene Glycol 3350 [Miralax (For Daily Use) -] 17 gm PO BID 03/14/18 Trimethobenzamide HCl [Tigan] 300 mg PO TID 03/14/18 Review of Systems - Review of Systems Able to Perform ROS?: Yes Comments:: 03/14/18 19:37 CONSTITUTIONAL: (+) Decreased appetite. (+) Diffuse body aches. Absent: fever, chills, diaphoresis, generalized weakness, malaise HEENT: Absent: rhinorrhea, nasal congestion, throat pain, throat swelling, difficulty swallowing, mouth swelling, ear pain, eye pain, visual Changes CARDIOVASCULAR: Absent: chest pain, syncope, palpitations, irregular heart rate, lightheadedness , peripheral edema RESPIRATORY: Absent: cough, shortness of breath, dyspnea with exertion, orthopnea, wheezing, stridor, hemoptysis GASTROINTESTINAL: (+) Vomiting. (+) Nausea. Absent: abdominal pain, abdominal distension, diarrhea, constipation, melena, hematochezia GENITOURINARY: Absent: dysuria, frequency, urgency, hesitancy, hematuria, flank pain, genital pain MUSCULOSKELETAL: Absent: myalgia, arthralgia, joint swelling SKIN: Absent: rash, itching, pallor HEMATOLOGIC/IMMUNOLOGIC: Absent: easy bleeding, easy bruising, lymphadenopathy, frequent infections ENDOCRINE: Absent: unexplained weight gain, unexplained weight loss, heat intolerance, cold intolerance NEUROLOGIC: Absent: headache, focal weakness or paresthesias, dizziness, unsteady gait, seizure, mental status changes, bladder or bowel incontinence PSYCHIATRIC: Absent: anxiety, depression, suicidal or homicidal ideation, hallucinations. <Manpreet Hillman - Last Filed: 03/14/18 19:37> *Physical Exam - Vital Signs Last Vital Signs Temp Pulse Resp BP Pulse Ox 98.5 F 105 H 18 115/89 99 03/14/18 18:41 03/14/18 18:41 03/14/18 18:41 03/14/18 18:41 04/24/18 18:41 - Physical Exam Comments: 03/14/18 19:38 GENERAL: (+) Mild distress. Well developed, well nourished. Awake and alert. HEENT: Normocephalic, atraumatic. PERRLA, EOMI. No conjunctival pallor. Sclera are non- icteric. Moist mucous membranes. Oropharynx is clear. NECK: Supple. Full ROM. No JVD. Carotid pulses 2+ and symmetric, without bruits. No thyromegaly. No lymphadenopathy. CARDIOVASCULAR: (+) Tachycardic. Regular rhythm. No murmurs, rubs, or gallops. Distal pulses are 2+ and symmetric. PULMONARY: No evidence of respiratory distress. Lungs clear to auscultation bilaterally. No wheezing, rales or rhonchi. ABDOMINAL: (+) Diffuse abdominal tenderness. Soft. Non-distended. No rebound or guarding. No organomegaly. Normoactive bowel sounds. MUSCULOSKELETAL Normal range of motion at all joints. No bony deformities or tenderness. No CVA tenderness. EXTREMITIES: No cyanosis. No clubbing. No edema. No calf tenderness. SKIN: Warm and dry. Normal capillary refill. No rashes. No jaundice. NEUROLOGICAL: Alert, awake, appropriate. Cranial nerves 2-12 intact. No deficits to light touch and temperature in face, upper extremities and lower extremities. No motor deficits in the in face, upper extremities and lower extremities. Normoreflexic in the upper and lower extremities. Normal speech. Toes are downgoing bilaterally. Gait is normal without ataxia. PSYCHIATRIC: Cooperative. Good eye contact. Appropriate mood and affect. <Manpreet Hillman - Last Filed: 03/14/18 19:37> - Vital Signs Last Vital Signs Temp Pulse Resp BP Pulse Ox 98.5 F 105 H 18 115/89 99 03/14/18 18:41 03/14/18 18:41 03/14/18 18:41 03/14/18 18:41 03/14/18 18:41 <Benedict Burris - Last Filed: 03/15/18 00:36> ED Treatment Course - LABORATORY CBC & Chemistry Diagram: 03/14/18 19:30 03/14/18 19:30 <Benedict Burris - Last Filed: 03/15/18 00:36> Medical Decision Making - Medical Decision Making 03/15/18 00:35 Dr. Burris: The scribe's documentation has been prepared under my direction and personally reviewed by me in its entirery. I confirm that the note above accurately reflects all work, treatment, procedures, and medical decision making performed by me. <Benedict Burris - Last Filed: 03/15/18 00:36> *DC/Admit/Observation/Transfer - Attestations Scribe Attestion: 03/14/18 19:38 Documentation prepared by Manpreet Hillman, acting as medical billing clerk for Benedict Burris DO. <Manpreet Hillman - Last Filed: 03/14/18 19:37> - Discharge Dispostion Admit: No <Benedict Burris - Last Filed: 03/15/18 00:36> Diagnosis at time of Disposition: Gastroparesis, Nausea and vomiting - Discharge Dispostion Disposition: HOME Condition at time of disposition: Improved - Patient Instructions Printed Discharge Instructions: DI for Gastroparesis, Nausea and Vomiting-Adult Additional Instructions: Take all your medications as directed. Eat as you are supposed to prevent stomach irritation. Follow up with your scheduled appointment
[2018-03-14] MEDS ORDERED: SODIUM CHLORIDE 1,000 ML IV STA ×2 (19:25→19:26)
[2018-03-14] MEDS ORDERED: ONDANSETRON 4 MG/2 ML VIAL IVPUSH STA (19:26)
[2018-03-14] MEDS ORDERED: TRIMETHOBENZAMIDE HCL 200MG/2ML INJ IM ONE (19:27)
[2018-03-14] MEDS ORDERED: ONDANSETRON 4 MG/2 ML VIAL ONE (19:35)
[2018-03-14 19:51] LABS: URINE APPEARANCE CLEAR; URINE BILIRUBIN NEGATIVE (<2.0 mg/dL); URINE BLOOD NEGATIVE (NEGATIVE); URINE COLOR LTYELLOW; URINE GLUCOSE (UA) 3+ (NEGATIVE); URINE KETONE 1+ (NEGATIVE); URINE LEUK ESTERASE NEGATIVE (NEGATIVE); URINE NITRITE NEGATIVE (NEGATIVE); URINE PROTEIN NEGATIVE (NEGATIVE); URINE UROBILINOGEN NEGATIVE mg/dL (0.2-1.0)
[2018-03-14] MEDS ORDERED: morphine SULFATE 4 MG/ML VIAL ONE (19:52)
[2018-03-14 19:53] LABS: BASO % 0.4 % (0-2.0); EOS % 0.2 % (0-4.5); HEMATOCRIT 42.2 % (32.4-45.2); HEMOGLOBIN 14.5 GM/dL (10.7-15.3); LYMPH % 15.9 % (8-40); MCH 30.2 pg (25.7-33.7); MCHC 34.3 g/dl (32.0-36.0); MEAN PLT VOLUME 8.7 fl (7.5-11.1); MONO % 7.4 % (3.8-10.2); NEUT % 76.1 % (42.8-82.8); PLATELET COUNT 300 K/MM3 (134-434); RDW 14.7 % (11.6-15.6); WHITE BLOOD COUNT 8.4 K/mm3 (4.0-10.0)
[2018-03-14] MEDS ORDERED: morphine CARPU-JECT 2 MG/1 ML DISP.SYRIN IVPUSH ONE ×2 (20:08→23:57)
[2018-03-14 21:18] LABS: ALBUMIN 4.4 g/dl (3.4-5.0); ANION GAP 6 (8-16); BILIRUBIN,TOTAL 1.5 mg/dL (0.2-1.0); BLOOD UREA NITROGEN 10 mg/dL (7-18); CALCIUM 9.3 mg/dL (8.5-10.1); CHLORIDE 100 mmol/L (98-107); CO2 28 mmol/L (21-32); CREATININE 0.7 mg/dL (0.55-1.02); LIPASE 72 U/L (73-393); MAGNESIUM 2.2 mg/dL (1.8-2.4); POTASSIUM 3.8 mmol/L (3.5-5.1); SGOT/AST 12 U/L (15-37); SGPT/ALT 16 U/L (12-78); SODIUM 134 mmol/L (136-145); TOT PROT 7.6 g/dl (6.4-8.2)
[2018-03-14 21:19] LABS: ALK PHOS 76 U/L (45-117)
[2018-03-14 21:21] LABS: GLUCOSE,RANDOM 329 mg/dL (74-106)
[2018-03-14] MEDS ORDERED: DEXTROSE 5%-LACTATED RINGERS 1,000 ML IV SCH (21:30)
[2018-03-14] MEDS ORDERED: HEMOQUE TEST 1 EACH EACH ONE (21:53)
[2018-03-14 23:00] LABS: ACETONE SERUM NEGATIVE (NEGATIVE)
[2018-03-14] MEDS ORDERED: MORPHINE SULFATE 10 MG/1 ML *VIAL ONE (23:58)
[2018-03-15 00:37] VITALS: BP 108/52; PULSE 80
== END 2018-03-15 00:40 | disposition home or self-care (01) ==
LOC: JER 18:16
PROC: 3E033GC Introduction of Other Therapeutic Substance into Peripheral Vein, Percutaneous Approach (ICD-10-PCS; principal; 2018-03-14)
PROC: 3E0337Z Introduction of Electrolytic and Water Balance Substance into Peripheral Vein, Percutaneous Approach (ICD-10-PCS; 2018-03-14)
PROC: 3E033GC Introduction of Other Therapeutic Substance into Peripheral Vein, Percutaneous Approach (ICD-10-PCS; 2018-03-14)
PROC: 3E033NZ Introduction of Analgesics, Hypnotics, Sedatives into Peripheral Vein, Percutaneous Approach (ICD-10-PCS; 2018-03-14)
PROC: 3E033NZ Introduction of Analgesics, Hypnotics, Sedatives into Peripheral Vein, Percutaneous Approach (ICD-10-PCS; 2018-03-14)
DX: K31.84 Gastroparesis (principal); E10.9 Type 1 diabetes mellitus without complications; Z79.4 Long term (current) use of insulin; E78.00 Pure hypercholesterolemia, unspecified; J45.909 Unspecified asthma, uncomplicated; F17.210 Nicotine dependence, cigarettes, uncomplicated; Z90.49 Acquired absence of other specified parts of digestive tract
CPT/HCPCS: 36415; 80053; 81003; 82009; 82962; 83690; 83735; 84703; 85025; 96361; 96365; 96366; 96372; 96375; 96376; 99283-25; J7030

== ENCOUNTER 2018-03-15 20:18 | Emergency (ER) | payer OTHER ==
[2018-03-15] MEDS ORDERED: SODIUM CHLORIDE 0.9% 1000 ML INFUS.BAG IV ONE (20:48)
[2018-03-15] MEDS ORDERED: PANTOPRAZOLE SODIUM 40 MG VIAL IVPUSH ONE (20:48)
[2018-03-15] MEDS ORDERED: ONDANSETRON 4 MG/2 ML VIAL IVPUSH ONE (20:48)
[2018-03-15] MEDS ORDERED: morphine CARPU-JECT 4 MG/1 ML DISP.SYRIN IVPUSH ONE (20:48)
--- NOTE | 2018-03-15 20:48 | PDOC ---
Attending Attestation - Resident Resident Name: Rosemarie Mcdaniel - ED Attending Attestation I have performed the following: I have examined & evaluated the patient, The case was reviewed & discussed with the resident, I agree w/resident's findings & plan, Exceptions are as noted - Medical Decision Making 03/15/18 20:51 I, Dr. Tuyet Mena, DO, attest that this document has been prepared under my direction and personally reviewed by me in its entirety. I further attest, that it accurately reflects all work, treatment, procedures and medical decision -making performed by me. 03/15/18 21:28 a/p: 32yo female with hx of dm and gastroparesis with acute onset of abd pain, n /v -seen in the ED last night -ate beef broth today and then the pain started -states reglan does not work for her -follows at [facility] by Dr. Thomas and is getting scheduled for a gastric pacemaker -has appt on March 22 with the GI specialist at [facility] -no f/c -last bm yesterday and normal -nonbloody/nonbilious vomitus -will check labs, medicate for n/v and pain -will monitor and reassess 03/15/18 21:36 pt eloped from the ED <Tuyet Mena - Last Filed: 03/15/18 21:36> - HPI HPI: 03/15/18 21:59 The patient is a 32 year old female with past medical history of DM (diagnosed 7 years ago), gastroparesis, hyperlipidemia, and asthma presents to the emergency department via EMS due to abdominal pain. The patients partner reports she was fine until the afternoon. Denies eating anything except beef broth. The patient was foaming at the mouth which the partner reports is a new manifestation. The partner reports they had an appointment last week at [facility] last week and was prescribed promethazine. The partner reports her taking 10 ml promethazine hour and half prior to coming to the ED which she didn't throw up. The partner reports she had another appointment March 22 for a gastric pacemaker. The EMT reports a sugar level of 326 and no insulin use was reported. Last bowel movement: yesterday Allergies: NKDA, Shellfish. Past surgical history: Cholecystectomy. Social history: Marijuana use. Current everyday smoker. No reported alcohol use. PCP: Maira Carey - Physicial Exam PE: 03/15/18 22:04 GENERAL: Awake, alert, and fully oriented, writhing in pain. HEAD: No signs of trauma EYES: PERRLA, EOMI, sclera anicteric, conjunctiva clear ENT:(+)dry heaving with little of frothy forms vomitus (Nonbilious or Nonbloody) . Auricles normal inspection, hearing grossly normal, nares patent, oropharynx clear without exudates. Moist mucosa NECK: Normal ROM, supple, no lymphadenopathy, JVD, or masses LUNGS: Breath sounds equal, clear to auscultation bilaterally. No wheezes, and no crackles HEART:(+) Tachycardic.normal S1 and S2, no murmurs, rubs or gallops ABDOMEN:(+) Mildly diffuse tenderness Soft, normoactive bowel sounds. No guarding, no rebound. No masses EXTREMITIES: Normal range of motion, no edema. No clubbing or cyanosis. No cords, erythema, or tenderness NEUROLOGICAL: Cranial nerves II through XII grossly intact. Normal speech, normal gait SKIN: Warm, Dry, normal turgor, no rashes or lesions noted. - Medical Decision Making 03/15/18 22:05 Documentation prepared by Chayo Cerda, acting as center medical director for Tuyet Mena DO. <Chayo Cerda - Last Filed: 03/15/18 22:06> Discharge Disposition - Discharge Dispostion Last Admission D/C Date: 12/05/17 <Tuyet Mena - Last Filed: 03/15/18 21:36> <Chayo Cerda - Last Filed: 03/15/18 22:06> - Diagnosis Gastroparesis, Nausea and vomiting - Discharge Dispostion Disposition: ELOPED Condition at time of disposition: Unchanged/Unknown
--- NOTE | 2018-03-15 21:51 | PDOC ---
History of Present Illness - General Stated Complaint: ABDOMINAL PAIN Time Seen by Provider: 03/15/18 20:34 History Source: Patient, Significant Other Exam Limitations: No Limitations - History of Present Illness Initial Comments: The patient elopes from the ED prior to my history and physical examination. Past History - Past Medical History Allergies/Adverse Reactions: Allergies Allergy/AdvReac Type Severity Reaction Status Date / Time shellfish derived Allergy Verified 03/14/18 18:41 Home Medications: Ambulatory Orders Gabapentin [Neurontin -] 300 mg PO TID 03/14/18 Insulin Glargine,Hum.rec.anlog [Lantus] 30 unit SQ HS 03/14/18 Insulin Glargine,Hum.rec.anlog [Lantus] 40 unit SQ DAILY 03/14/18 Omeprazole 20 mg PO DAILY 03/14/18 Polyethylene Glycol 3350 [Miralax (For Daily Use) -] 17 gm PO BID 03/14/18 Trimethobenzamide HCl [Tigan] 300 mg PO TID 03/14/18 Asthma: Yes CVA: No COPD: No Diabetes: Yes (IDDM) Hypercholesterolemia: Yes - Surgical History Abdominal Surgery: Yes Cholecystectomy: Yes - Immunization History Immunization Up to Date: Yes - Suicide/Smoking/Psychosocial Hx Smoking History: Current some day smoker Have you smoked in the past 12 months: Yes Number of Cigarettes Smoked Daily: 5 'Breaking Loose' booklet given: 11/07/17 Hx Alcohol Use: No Drug/Substance Use Hx: Yes (MARIJUANA) Substance Use Type: Marijuana Hx Substance Use Treatment: No *DC/Admit/Observation/Transfer Diagnosis at time of Disposition: Gastroparesis, Nausea and vomiting - Discharge Dispostion Disposition: ELOPED Condition at time of disposition: Unchanged/Unknown - Referrals - Patient Instructions - Post Discharge Activity
== END 2018-03-15 21:37 | disposition left against medical advice (07) ==
LOC: JER 20:18
DX: K31.84 Gastroparesis (principal); E10.9 Type 1 diabetes mellitus without complications; Z79.4 Long term (current) use of insulin; F17.210 Nicotine dependence, cigarettes, uncomplicated; Z90.49 Acquired absence of other specified parts of digestive tract; E78.5 Hyperlipidemia, unspecified; Z87.09 Personal history of other diseases of the respiratory system
CPT/HCPCS: 99281-25

== ENCOUNTER 2018-04-29 01:33 | Emergency (ER) | payer OTHER ==
[2018-04-29 02:04] VITALS: BP 124/83; PULSE 94; TEMP 98.6; BMI 19.3
--- NOTE | 2018-04-29 03:00 | PDOC ---
History of Present Illness - General Chief Complaint: Injury Stated Complaint: INJURY/FOREHEAD Time Seen by Provider: 04/29/18 01:36 History Source: Patient Exam Limitations: No Limitations - History of Present Illness Initial Comments: 04/29/18 04:21 Best Contact: PCP: Frances Pmhx: IDDM, gastroparesis Pshx: Bilateral breast mass, laparoscopic cholecystectomy Allergies:NKDA FH:N/A Social Hx: Cigarettes/ 0 Alcohol/ 0 Drugs/0 LMP:04/10/2018 32-year-old female presents to the emergency department complaining of a laceration to the left lateral eyebrow. Patient states after taking a hot bath, she stood up slipped and fell, hitting the left eyebrow against the wall. Patient denies LOC, dizziness, headache, lightheadedness, blurry vision, visual disturbance, neck/back pains, chest pain, shortness of breath, abdominal pains. Last tetanus/times one year ago Past History - Past Medical History Allergies/Adverse Reactions: Allergies Allergy/AdvReac Type Severity Reaction Status Date / Time shellfish derived Allergy Verified 04/29/18 02:04 Home Medications: Ambulatory Orders Gabapentin [Neurontin -] 300 mg PO TID 03/14/18 Insulin Glargine,Hum.rec.anlog [Lantus] 30 unit SQ HS 03/14/18 Insulin Glargine,Hum.rec.anlog [Lantus] 40 unit SQ DAILY 03/14/18 Omeprazole 20 mg PO DAILY 03/14/18 Polyethylene Glycol 3350 [Miralax (For Daily Use) -] 17 gm PO BID 03/14/18 Trimethobenzamide HCl [Tigan] 300 mg PO TID 03/14/18 Asthma: Yes CVA: No COPD: No Diabetes: Yes (IDDM) Hypercholesterolemia: Yes - Surgical History Abdominal Surgery: Yes Cholecystectomy: Yes - Immunization History Immunization Up to Date: Yes - Suicide/Smoking/Psychosocial Hx Smoking History: Current some day smoker Have you smoked in the past 12 months: Yes Number of Cigarettes Smoked Daily: 5 Information on smoking cessation initiated: No 'Breaking Loose' booklet given: 11/07/17 Hx Alcohol Use: No Drug/Substance Use Hx: No Substance Use Type: Marijuana Hx Substance Use Treatment: No Review of Systems - Review of Systems Able to Perform ROS?: Yes Comments:: 04/29/18 04:15 CONSTITUTIONAL: Absent: fever, chills, diaphoresis, generalized weakness, malaise, loss of appetite HEENT: +Left lat eyebrow lac/swelling Absent: rhinorrhea, nasal congestion, throat pain, throat swelling, difficulty swallowing, mouth swelling, ear pain, eye pain, visual Changes CARDIOVASCULAR: Absent: chest pain, loss of consciousness, palpitations, irregular heart rate, peripheral edema RESPIRATORY: Absent: cough, shortness of breath, dyspnea with exertion, orthopnea, wheezing, stridor, hemoptysis GASTROINTESTINAL: Absent: abdominal pain, abdominal distension, nausea, vomiting, diarrhea, constipation, melena, hematochezia GENITOURINARY: Absent: dysuria, frequency, urgency, hesitancy, hematuria, flank pain, genital pain MUSCULOSKELETAL: Absent: myalgia, arthralgia, joint swelling SKIN: Absent: rash, itching, pallor HEMATOLOGIC/IMMUNOLOGIC: Absent: easy bleeding, easy bruising, lymphadenopathy, frequent infections ENDOCRINE: Absent: unexplained weight gain, unexplained weight loss, heat intolerance, cold intolerance NEUROLOGIC: Absent: headache, focal weakness or paresthesias, dizziness, unsteady gait, seizure, mental status changes, bladder or bowel incontinence PSYCHIATRIC: Absent: anxiety, depression, suicidal or homicidal ideation, hallucinations. Is the patient limited Korean proficient: No *Physical Exam - Vital Signs Last Vital Signs Temp Pulse Resp BP Pulse Ox 98.6 F 94 H 19 124/83 98 04/29/18 01:35 04/29/18 01:35 04/29/18 01:35 04/29/18 01:35 04/29/18 01:35 - Physical Exam Comments: 04/29/18 04:12 GENERAL: Well developed, well nourished. Awake and alert. No acute distress. HEENT: +Left lat eyebrow laceration Normocephalic, atraumatic. PERRLA, EOMI. No conjunctival pallor. Sclera are non- icteric. Moist mucous membranes. Oropharynx is clear. NECK: Supple. Full ROM. No JVD. Carotid pulses 2+ and symmetric, without bruits. No thyromegaly. No lymphadenopathy. CARDIOVASCULAR: Regular rate and rhythm. No murmurs, rubs, or gallops. Distal pulses are 2+ and symmetric. PULMONARY: No evidence of respiratory distress. Lungs clear to auscultation bilaterally. No wheezing, rales or rhonchi. ABDOMINAL: Soft. Non-tender. Non-distended. No rebound or guarding. No organomegaly. Normoactive bowel sounds. MUSCULOSKELETAL Normal range of motion at all joints. No bony deformities or tenderness. No CVA tenderness. EXTREMITIES: No cyanosis. No clubbing. No edema. No calf tenderness. SKIN: Warm and dry. Normal capillary refill. No rashes. No jaundice. NEUROLOGICAL: Alert, awake, appropriate. Cranial nerves 2-12 intact. No deficits to light touch and temperature in face, upper extremities and lower extremities. No motor deficits in the in face, upper extremities and lower extremities. Normoreflexic in the upper and lower extremities. Normal speech. Toes are down- going bilaterally. Gait is normal without ataxia. PSYCHIATRIC: Cooperative. Good eye contact. Appropriate mood and affect. PROCEDURE NOTE Left lateral eyebrow 2.5 mL transverse partial thickness laceration Betadine prep Normal saline copious irrigation (3)5.0 Vicryl subcutaneous simple interrupted (5) 5.0 nylon skin/simple interrupted Bacitracin Band-Aid ED Treatment Course - RADIOLOGY Radiograph Interpretation: 04/29/18 04:11 CAT scan head without contrast: Nl *DC/Admit/Observation/Transfer Diagnosis at time of Disposition: Laceration of eyebrow Qualifiers: Encounter type: initial encounter Laterality: left Qualified Code(s): S01.112A - Laceration without foreign body of left eyelid and periocular area, initial encounter Closed head injury Qualifiers: Encounter type: initial encounter Qualified Code(s): S09.90XA - Unspecified injury of head, initial encounter - Discharge Dispostion Disposition: HOME Condition at time of disposition: Fair Decision to Admit order: No - Referrals Referrals: Maira Oswald MD [Primary Care Provider] - - Patient Instructions Printed Discharge Instructions: DI for Laceration Repair -- Simple, DI for Laceration Repair -- Complex Suture, DI for Closed Head Injury Additional Instructions: Keep the incision clean and dry for 24 hours. After 24 hours, you may allow the soap and water to rinse off your incision. Avoid direct pressure of the water to the incision. Pat the incision dry with a clean clothe. Apply a small amount of bacitracin onto the incision. Cover the incision loosely with a bandaid. Take tylenol/motrin as needed for pain. Follow up with your physician or the ER in 48 hours for a wound check. Return to the ER if you notice red streaks, increase redness/swelling/severe pain to the incision. Suture removal in 6 days. - Post Discharge Activity
[2018-04-29] MEDS ORDERED: LIDOCAINE HCL 1%, 10 MG/ML (20ML VIAL) ONE (03:46)
== END 2018-04-29 05:17 | disposition home or self-care (01) ==
LOC: JER 01:33
PROC: 0HQ1XZZ Repair Face Skin, External Approach (ICD-10-PCS; principal; 2018-04-29)
DX: S01.112A Laceration without foreign body of left eyelid and periocular area, initial encounter (principal); S09.90XA Unspecified injury of head, initial encounter; W22.03XA Walked into furniture, initial encounter; Y93.89 Activity, other specified; Y92.9 Unspecified place or not applicable
CPT/HCPCS: 70450-TC; 84703; 99281-25

== ENCOUNTER 2018-06-29 16:23 | Emergency (ER) | payer OTHER ==
[2018-06-29 16:44] VITALS: BP 100/80; PULSE 120; TEMP 98.7; BMI 17.4
--- NOTE | 2018-06-29 16:45 | PDOC ---
Rapid Medical Evaluation Time Seen by Provider: 06/29/18 16:40 Medical Evaluation: Allergies Allergy/AdvReac Type Severity Reaction Status Date / Time shellfish derived Allergy Verified 06/20/18 08:20 famotidine [From Pepcid] AdvReac Verified 06/20/18 08:20 metoclopramide [From Reglan] AdvReac Verified 06/20/18 08:20 ondansetron AdvReac Verified 06/20/18 08:20 I have performed a brief in-person evaluation of this patient. The patient presents with a chief complaint of: left sided rib pain s/p fall 2 days ago Pertinent physical exam findings: patient appears uncomfortable. She is a type 1 diabetic I have ordered the following: labs, UA/culture, rib xray The patient will proceed to the ED for further evaluation. Discharge Disposition - Diagnosis Rib pain on left side - Referrals - Patient Instructions - Post Discharge Activity
--- NOTE | 2018-06-29 18:08 | PDOC ---
Attending Attestation - Resident Resident Name: Farhan Melendez - ED Attending Attestation I have performed the following: I have examined & evaluated the patient, The case was reviewed & discussed with the resident, I agree w/resident's findings & plan, Exceptions are as noted - HPI HPI: 06/29/18 18:26 The patient is a 33 year old female with a past medical history of type 1 diabetes c/b gastroparesies, HL who presents to the emergency department for evaluation of left rib pain, nausea, and vomiting. The patient reports chest pain and left rib pain after falling on wood floor while entering her house 2 days ago. She reports striking her left rib on the ground at the time. She states she was feeling weak at the time, and her legs gave out. She denies head trauma and loss of consciousness. The patient also reports a 2 day history decreased PO tolerance, nausea, and non-bloody emesis but states she has not vomited since 5am this morning. She states these symptoms are consistent with her gastropareises. She is due to surgery for her gastropareisis on 07/12 at [facility]. Reports her fingersticks have been wnl. The patient denies headache, focal weakness, numbness, dizziness, fever, chills , diarrhea, constipation, dysuria, and urinary incontinence. Allergies: Shellfish derived, famotidine, metoclopramide, odansetron Social History: Reported use of medical marijuana. Admits to smoking 1-3 cigarettes a day. Social alcohol consumption. PCP: Dr. Oswald ([phone]) - Physicial Exam PE: 06/29/18 18:31 GENERAL: Awake, alert, and fully oriented, in no acute distress. Very thin. HEAD: No signs of trauma EYES: PERRLA, EOMI, sclera anicteric, conjunctiva clear ENT: Auricles normal inspection, hearing grossly normal, nares patent, oropharynx clear without exudates. Moist mucosa NECK: Normal ROM, supple, no lymphadenopathy, JVD, or masses LUNGS: Breath sounds equal, clear to auscultation bilaterally. No wheezes, and no crackles HEART: Regular rate and rhythm, normal S1 and S2, no murmurs, rubs or gallops. + L lateral rib pain along ribs 8-10 ABDOMEN: Soft, nontender, normoactive bowel sounds. No guarding, no rebound. No masses EXTREMITIES: Normal range of motion, no edema. No clubbing or cyanosis. No cords , erythema, or tenderness BACK: No midline spinal tenderness in cervical/thoracic/lumbar region NEUROLOGICAL: Normal speech, cranial nerves intact, negative pronator drift, 5/ 5 strength in all 4 extremities, normal sensation to light touch in all 4 extremities, normal cerebellar exam, normal gait, normal reflexes and tone SKIN: Warm, Dry, normal turgor, no rashes or lesions noted. - Medical Decision Making 06/29/18 18:36 33-year-old female with a history of type 1 diabetes, c/b gastroparesis presents to the emergency Department with left-sided rib pain after a fall 2 days ago.Pt also reports associated with nausea and vomiting consistent with her gastroparesis. Patient's fall was in the setting of generalized weakness after vomiting x 1 day concerning for possible dehydration. Plan: -labs -IVF -UPT -reassess 06/29/18 19:20 CBC wnl Remaining w/u pending Case signed out to overnight attending for further mgmt/dispo
[2018-06-29] MEDS ORDERED: ACETAMINOPHEN 1000 MG/100 ML VIAL (NON FORMULARY) IVPB ONE (18:20)
[2018-06-29] MEDS ORDERED: SODIUM CHLORIDE 1,000 ML IV STA (18:20)
[2018-06-29] MEDS ORDERED: ACETAMINOPHEN INJECTION 100 ML IVPB ONE (18:32)
[2018-06-29 19:13] LABS: BASO % 0.5 % (0-2.0); EOS % 0.6 % (0-4.5); HEMATOCRIT 45.4 % (32.4-45.2); HEMOGLOBIN 15.3 GM/dL (10.7-15.3); LYMPH % 34.6 % (8-40); MCH 29.7 pg (25.7-33.7); MCHC 33.6 g/dl (32.0-36.0); MEAN CELL VOLUME 88.4 fl (80-96); MEAN PLT VOLUME 8.9 fl (7.5-11.1); MONO % 11.1 % (3.8-10.2); NEUT % 53.2 % (42.8-82.8); PLATELET COUNT 392 K/MM3 (134-434); RBC 5.14 M/mm3 (3.60-5.2); RDW 14.1 % (11.6-15.6); WHITE BLOOD COUNT 7.4 K/mm3 (4.0-10.0)
[2018-06-29 19:39] LABS: ALBUMIN 4.5 g/dl (3.4-5.0); ANION GAP 12 (8-16); BLOOD UREA NITROGEN 10 mg/dL (7-18); CALCIUM 9.9 mg/dL (8.5-10.1); CHLORIDE 94 mmol/L (98-107); CO2 35 mmol/L (21-32); CREATININE 0.8 mg/dL (0.55-1.02); GLUCOSE,RANDOM 77 mg/dL (74-106); SGPT/ALT 25 U/L (12-78); SODIUM 141 mmol/L (136-145)
[2018-06-29 19:41] LABS: ALK PHOS 87 U/L (45-117); BILIRUBIN,TOTAL 0.5 mg/dL (0.2-1.0); TOT PROT 8.4 g/dl (6.4-8.2)
[2018-06-29 19:44] LABS: POTASSIUM 3.5 mmol/L (3.5-5.1); SGOT/AST 18 U/L (15-37)
[2018-06-29] MEDS ORDERED: TRIMETHOBENZAMIDE HCL 200MG/2ML INJ IM ONE (20:17)
[2018-06-29] MEDS ORDERED: KETOROLAC TROMETHAMINE 15 MG/ML VIAL IVPUSH ONE (20:51)
--- NOTE | 2018-06-29 21:06 | PDOC ---
History of Present Illness - General Chief Complaint: Nausea/Vomiting Stated Complaint: FALL/INJURY Time Seen by Provider: 06/29/18 16:40 History Source: Patient Exam Limitations: No Limitations - History of Present Illness Initial Comments: 06/29/18 20:53 Ms. Valentin is a 33 yo F with a hx of gastroparesis, DM, HLD, and h pylori infection (2017) who presented to the emergency department s/p fall 2 days ago with concurrent nausea and vomiting. She fell 2 days ago when entering her home and landing on her left side. She denies LOC and head trauma. She has had pain that increases with breathing under the left breast approximately T4-T5 region without radiation. Concurrently, she has increased vomiting episodes over the past two days "to many to count". Denies hematemesis. Describes it as watery and billious. Last vomiting episode was at 4am. She is having surgery scheduled on 07/12/[address] Brock at [place] for pyloroplasty. Denies the following: fever, headache, recent visual changes, lightheadedness, chest pain, SOB, diarrhea, dysuria, and hematuria, and leg swelling/pain. Endorses increased weakness. Past History - Past Medical History Allergies/Adverse Reactions: Allergies Allergy/AdvReac Type Severity Reaction Status Date / Time shellfish derived Allergy Verified 06/20/18 08:20 famotidine [From Pepcid] AdvReac Verified 06/20/18 08:20 metoclopramide [From Reglan] AdvReac Verified 06/20/18 08:20 ondansetron AdvReac Verified 06/20/18 08:20 Home Medications: Ambulatory Orders Gabapentin [Neurontin -] 300 mg PO TID 03/14/18 Omeprazole 20 mg PO DAILY 03/14/18 Promethazine HCl [Phenergan Plain 6.25 MG/5 ML -] 5 ml PO TID 05/04/18 Clonazepam [Klonopin] 1 mg PO BID 06/11/18 Dronabinol [Marinol -] 2.5 mg PO ONCE PRN 06/11/18 Insulin Glargine,Hum.rec.anlog [Basaglar Kwikpen U-100] 25 unit SQ BID 06/11/18 Insulin Lispro [Admelog] 100 unit SQ ASDIR 06/11/18 Lisinopril [Prinivil] 5 mg PO DAILY 06/11/18 Mirtazapine [Remeron -] 15 mg PO DAILY 06/11/18 Omeprazole 20 mg PO DAILY 06/11/18 Trimethobenzamide HCl [Tigan -] 300 mg PO TID PRN #21 capsule 06/29/18 Asthma: Yes CVA: No COPD: No Diabetes: Yes (IDDM) GI Disorders: Yes (gastropresis) HTN: Yes Hypercholesterolemia: Yes - Surgical History Abdominal Surgery: Yes Cholecystectomy: Yes - Immunization History Immunization Up to Date: Yes - Suicide/Smoking/Psychosocial Hx Smoking History: Never smoked Have you smoked in the past 12 months: Yes Number of Cigarettes Smoked Daily: 2 Information on smoking cessation initiated: No 'Breaking Loose' booklet given: 11/07/17 Hx Alcohol Use: No Drug/Substance Use Hx: No Substance Use Type: None Hx Substance Use Treatment: No *Physical Exam - Vital Signs Last Vital Signs Temp Pulse Resp BP Pulse Ox 98.7 F 120 H 20 100/80 98 06/29/18 16:41 06/29/18 16:41 06/29/18 16:41 06/29/18 16:41 06/29/18 16:41 ED Treatment Course - LABORATORY CBC & Chemistry Diagram: 06/29/18 18:31 06/29/18 18:31 - ADDITIONAL ORDERS Additional order review: Laboratory Results 06/29/18 06/29/18 06/29/18 18:58 18:31 18:31 Sodium 141 Potassium 3.5 Chloride 94 L Carbon Dioxide 35 H Anion Gap 12 BUN 10 Creatinine 0.8 Creat Clearance w eGFR > 60 Random Glucose 77 Calcium 9.9 Magnesium 2.3 Total Bilirubin 0.5 AST 18 ALT 25 Alkaline Phosphatase 87 Total Protein 8.4 H Albumin 4.5 Serum , Qual Negative 06/29/18 18:31 RBC 5.14 MCV 88.4 MCHC 33.6 RDW 14.1 MPV 8.9 Neutrophils % 53.2 Lymphocytes % 34.6 D Monocytes % 11.1 H Eosinophils % 0.6 D Basophils % 0.5 - RADIOLOGY Radiology Studies Ordered: Category Date Time Status CHEST X-RAY PORTABLE* [RAD] Stat Radiology 06/29/18 18:17 Taken - Medications Given in the ED: ED Medications Discontinued Medications Generic Name Dose Route Start Last Admin Trade Name Freq PRN Reason Stop Dose Admin Acetaminophen 1,000 mg 06/29/18 18:20 06/29/18 19:03 Ofirmev Injection - IVPB 06/29/18 18:21 1,000 mg ONCE ONE Administration Sodium Chloride 1,000 mls @ 1,000 mls/hr 06/29/18 18:20 06/29/18 18:51 Normal Saline - IV 06/29/18 19:19 1,000 mls/hr ASDIR STA Administration Medical Decision Making - Medical Decision Making 06/30/18 06:53 Ms. valentin is a 33 yo F with a hx of gastroparesis and DM who presents today with left sided rib pain s/p mechanical fall with nausea and vomiting. ddx: rib fracture vs PNA vs costochondritis vs herpes zoster. In addition, N/V ddx is 2/2 to gastroparesis vs gastroenteritis vs obstruction Initial vitals: Initial Vital Signs Temp Pulse Resp BP Pulse Ox 98.7 F 120 H 20 100/80 98 06/29/18 16:41 06/29/18 16:41 06/29/18 16:41 06/29/18 16:41 06/29/18 16:41 Work up: Laboratory Results - last 24 hr 06/29/18 06/29/18 06/29/18 18:31 18:31 18:31 WBC 7.4 RBC 5.14 Hgb 15.3 Hct 45.4 H MCV 88.4 MCH 29.7 MCHC 33.6 RDW 14.1 Plt Count 392 MPV 8.9 Absolute Neuts (auto) 4.0 Neutrophils % 53.2 Lymphocytes % 34.6 D Monocytes % 11.1 H Eosinophils % 0.6 D Basophils % 0.5 Nucleated RBC % 0 Sodium 141 Potassium 3.5 Chloride 94 L Carbon Dioxide 35 H Anion Gap 12 BUN 10 Creatinine 0.8 Creat Clearance w eGFR > 60 Random Glucose 77 Calcium 9.9 Magnesium 2.3 Total Bilirubin 0.5 AST 18 ALT 25 Alkaline Phosphatase 87 Total Protein 8.4 H Albumin 4.5 Serum , Qual Urine Color Urine Appearance Urine pH Ur Specific [place] Urine Protein Urine Glucose (UA) Urine Ketones Urine Blood Urine Nitrite Urine Bilirubin Urine Urobilinogen Ur Leukocyte Esterase Urine WBC (Auto) Urine RBC (Auto) Ur Epithelial Cells Calcium Oxalate Crystal Hyaline Casts Urine Mucus Urine HCG, Qual 06/29/18 06/29/18 18:58 19:08 WBC RBC Hgb Hct MCV MCH MCHC RDW Plt Count MPV Absolute Neuts (auto) Neutrophils % Lymphocytes % Monocytes % Eosinophils % Basophils % Nucleated RBC % Sodium Potassium Chloride Carbon Dioxide Anion Gap BUN Creatinine Creat Clearance w eGFR Random Glucose Calcium Magnesium Total Bilirubin AST ALT Alkaline Phosphatase Total Protein Albumin Serum , Qual Negative Urine Color [place] Urine Appearance Slcloudy Urine pH 5.0 Ur Specific [place] 1.046 H Urine Protein 2+ H Urine Glucose (UA) 3+ H Urine Ketones Trace H Urine Blood Negative Urine Nitrite Negative Urine Bilirubin 2.0 Urine Urobilinogen Negative Ur Leukocyte Esterase Negative Urine WBC (Auto) 7 Urine RBC (Auto) 2 Ur Epithelial Cells Few Calcium Oxalate Crystal Few Hyaline Casts 30 Urine Mucus Many Urine HCG, Qual Negative Given toradol, acetaminophen for pain control in the ED and started on 1 liter of NS. Given tigan for N/v control with improvement. Rib series was negative for fracture and CXR negative for PNA. D/C home with close follow up with PCP Dispo: dc to home. *DC/Admit/Observation/Transfer Diagnosis at time of Disposition: Rib pain on left side - Discharge Dispostion Disposition: HOME Decision to Admit order: No - Prescriptions Prescriptions: Trimethobenzamide HCl [Tigan -] 300 mg PO TID PRN #21 capsule PRN Reason: Nausea - Referrals Referrals: Maira Oswald MD [Primary Care Provider] - - Patient Instructions Printed Discharge Instructions: DI for Vomiting -- Adult - Post Discharge Activity
[2018-06-29] MEDS ORDERED: KETOROLAC TROMETHAMINE 15 MG/ML VIAL ONE (21:11)
[2018-06-29 22:00] LABS: URINE APPEARANCE SLCLOUDY; URINE COLOR AMBER; URINE GLUCOSE (UA) 3+ (NEGATIVE); URINE KETONE TRACE (NEGATIVE); URINE LEUK ESTERASE NEGATIVE (NEGATIVE); URINE NITRITE NEGATIVE (NEGATIVE); URINE UROBILINOGEN NEGATIVE mg/dL (0.2-1.0)
[2018-06-29 22:01] LABS: URINE PROTEIN 2+ (NEGATIVE)
[2018-06-29 22:06] LABS: CALCIUM OXALATE CRYSTALS FEW /hpf (NONE SEEN); EPI CELLS FEW /HPF (FEW); URINE HYALINE CAST 30 /lpf; URINE MUCUS MANY
[2018-06-29 22:18] LABS: HCG,QUALITATIVE URINE NEGATIVE
--- NOTE | 2018-06-30 08:31 | EKG ---
Test Reason : Blood Pressure : / mmHG Vent. Rate : 076 BPM Atrial Rate : 076 BPM P-R Int : 134 ms QRS Dur : 082 ms QT Int : 402 ms P-R-T Axes : 050 070 066 degrees QTc Int : 452 ms NORMAL SINUS RHYTHM NORMAL ECG WHEN COMPARED WITH ECG OF 20-JUN-2018 09:19, NO SIGNIFICANT CHANGE WAS FOUND Confirmed by KRISTEL HAQUE MD ([id number]) on 06/30/2018 8:31:42 AM Referred By: Confirmed By:KRISTEL HAQUE MD
== END 2018-06-29 22:50 | disposition home or self-care (01) ==
LOC: JER 16:23
PROC: 3E0333Z Introduction of Anti-inflammatory into Peripheral Vein, Percutaneous Approach (ICD-10-PCS; principal; 2018-06-29)
PROC: 3E033NZ Introduction of Analgesics, Hypnotics, Sedatives into Peripheral Vein, Percutaneous Approach (ICD-10-PCS; 2018-06-29)
PROC: 3E0337Z Introduction of Electrolytic and Water Balance Substance into Peripheral Vein, Percutaneous Approach (ICD-10-PCS; 2018-06-29)
PROC: 3E023NZ Introduction of Analgesics, Hypnotics, Sedatives into Muscle, Percutaneous Approach (ICD-10-PCS; 2018-06-29)
DX: R07.81 Pleurodynia (principal); I10 Essential (primary) hypertension; E10.9 Type 1 diabetes mellitus without complications; E78.5 Hyperlipidemia, unspecified; K31.84 Gastroparesis; J45.909 Unspecified asthma, uncomplicated; Z91.013 Allergy to seafood; Z88.8 Allergy status to other drugs, medicaments and biological substances; Z79.4 Long term (current) use of insulin
CPT/HCPCS: 36415; 71045-TC-FY; 71101-TC-FY; 80053; 81003; 81015; 82962; 83735; 84703; 85025; 93005; 93010; 99282-25; J0131; J7030

== ENCOUNTER 2018-07-10 12:57 | Emergency (ER) | payer OTHER ==
[2018-07-10 13:02] VITALS: TEMP 98.5; BMI 17.4
[2018-07-10] MEDS ORDERED: ACETAMINOPHEN 1000 MG/100 ML VIAL (NON FORMULARY) IVPB ONE (13:24)
[2018-07-10] MEDS ORDERED: SODIUM CHLORIDE 1,000 ML IV STA (13:24)
[2018-07-10] MEDS ORDERED: PROMETHAZINE HCL 25 MG/1 ML VIAL IVPUSH ONE (13:28)
--- NOTE | 2018-07-10 13:45 | PDOC ---
Attending Attestation - Resident Resident Name: Yong Velazquez - ED Attending Attestation I have performed the following: I have examined & evaluated the patient, The case was reviewed & discussed with the resident, I agree w/resident's findings & plan, Exceptions are as noted - HPI HPI: 33 yo F history DM1, gastroparesis presents with 2 day history of vomiting. + Epigastric pain, weakness, L-sided chest pain. - Physicial Exam PE: GENERAL: Awake, alert, and fully oriented, in no acute distress. Appears cachectic. HEAD: No signs of trauma EYES: PERRLA, EOMI, sclera anicteric, conjunctiva clear ENT: Auricles normal inspection, hearing grossly normal, nares patent, oropharynx clear without exudates. Dry mucosa NECK: Normal ROM, supple, no lymphadenopathy, JVD, or masses LUNGS: Breath sounds equal, clear to auscultation bilaterally. No wheezes, and no crackles HEART: Regular rate and rhythm, normal S1 and S2, no murmurs, rubs or gallops ABDOMEN: Soft, diffusely tender, hypoactive bowel sounds. +Guarding, no rebound. No masses EXTREMITIES: Normal range of motion, no edema. No clubbing or cyanosis. No cords, erythema, or tenderness NEUROLOGICAL: Cranial nerves II through XII grossly intact. Normal speech, normal gait SKIN: Warm, Dry, normal turgor, no rashes or lesions noted. - Medical Decision Making Pt with history of gastroparesis, presenting with cp, epigastric pain, vomiting. Will obtain labs, may require admission.
--- NOTE | 2018-07-10 14:13 | PDOC ---
History of Present Illness - General Chief Complaint: Pain Stated Complaint: CHEST PAIN HR 130 Time Seen by Provider: 07/10/18 13:17 History Source: Patient Exam Limitations: No Limitations - History of Present Illness Initial Comments: 07/10/18 14:02 Patient is a 33F with history of DM1 and gastroparesis herre today complaining of two days of vomiting. She endorses associated epigastric abdominal pain, generalized weakness, chest pain and shortness of breath. Patient endorses history of hypokalemia. Patient states that she ran out of promethazine 3 days ago. Denies fevers, chills. Denies blood in vomit. Endorses compliance with medication. Patient states that she is due to have a pyloric stent placed in two days at [place]. Denies dysuria. Patient reports a 70 pound weight loss. Past History - Past Medical History Allergies/Adverse Reactions: Allergies Allergy/AdvReac Type Severity Reaction Status Date / Time shellfish derived Allergy Verified 07/10/18 12:58 famotidine [From Pepcid] AdvReac Verified 07/10/18 12:58 metoclopramide [From Reglan] AdvReac Verified 07/10/18 12:58 ondansetron AdvReac Verified 07/10/18 12:58 Home Medications: Ambulatory Orders Gabapentin [Neurontin -] 300 mg PO TID 03/14/18 Promethazine HCl [Phenergan Plain 6.25 MG/5 ML -] 5 ml PO TID 05/04/18 Clonazepam [Klonopin] 1 mg PO BID 06/11/18 Dronabinol [Marinol -] 2.5 mg PO ONCE PRN 06/11/18 Insulin Glargine,Hum.rec.anlog [Basaglar Kwikpen U-100] 25 unit SQ BID 06/11/18 Insulin Lispro [Admelog] 100 unit SQ ASDIR 06/11/18 Lisinopril [Prinivil] 5 mg PO DAILY 06/11/18 Mirtazapine [Remeron -] 15 mg PO DAILY 06/11/18 Omeprazole 20 mg PO DAILY 06/11/18 Trimethobenzamide HCl [Tigan -] 300 mg PO TID PRN #21 capsule 06/29/18 Promethazine HCl [Phenergan -] 25 mg PO TID #21 tablet 07/10/18 Asthma: Yes CVA: No COPD: No DVT: No Diabetes: Yes (IDDM) GI Disorders: Yes (gastropresis) HTN: Yes Hypercholesterolemia: Yes - Surgical History Abdominal Surgery: Yes (HX OF G.TUBE) Cholecystectomy: Yes - Immunization History Immunization Up to Date: Yes - Suicide/Smoking/Psychosocial Hx Smoking History: Never smoked Have you smoked in the past 12 months: Yes Number of Cigarettes Smoked Daily: 2 Information on smoking cessation initiated: Yes 'Breaking Loose' booklet given: 07/10/18 Hx Alcohol Use: No Drug/Substance Use Hx: No Substance Use Type: Marijuana Hx Substance Use Treatment: No Review of Systems - Review of Systems Comments:: 07/10/18 14:13 GENERAL/CONSTITUTIONAL: No fever or chills. HEAD, EYES, EARS, NOSE AND THROAT: No change in vision. No sore throat. CARDIOVASCULAR: +chest pain +shortness of breath RESPIRATORY: No cough, wheezing, or hemoptysis. GASTROINTESTINAL: +nausea, vomiting. No diarrhea or constipation. GENITOURINARY: No dysuria, frequency, or change in urination. MUSCULOSKELETAL: No joint or muscle swelling or pain. No neck or back pain. SKIN: No rash NEUROLOGIC: No headache, vertigo, loss of consciousness, or change in strength/ sensation. ENDOCRINE: No increased thirst. No abnormal weight change HEMATOLOGIC/LYMPHATIC: No anemia, easy bleeding, or history of blood clots. ALLERGIC/IMMUNOLOGIC: No hives or skin allergy. *Physical Exam - Vital Signs Last Vital Signs Temp Pulse Resp BP Pulse Ox 98.5 F 129 H 18 111/82 100 07/10/18 12:58 07/10/18 12:58 07/10/18 12:58 07/10/18 12:58 07/10/18 12:58 - Physical Exam Comments: 07/10/18 14:14 GENERAL: Awake, alert, and fully oriented, bent over on side, signs of significant weight loss HEAD: No signs of trauma, normocephalic, atraumatic EYES: PERRLA, EOMI, sclera anicteric, conjunctiva clear ENT: Auricles normal inspection, hearing grossly normal, nares patent, oropharynx clear without exudates. Moist mucosa NECK: Normal ROM, supple, no lymphadenopathy, JVD, or masses LUNGS: No distress, speaks full sentences, clear to auscultation bilaterally HEART: Tachycardic, normal S1 and S2, no murmurs, rubs or gallops, peripheral pulses normal and equal bilaterally. ABDOMEN: Soft, +epigastric and suprapubic tenderness, normoactive bowel sounds. No guarding, no rebound. No masses EXTREMITIES: Normal inspection, Normal range of motion, no edema. No clubbing or cyanosis. NEUROLOGICAL: Cranial nerves II through XII grossly intact. Normal speech, normal gait, no focal sensorimotor deficits SKIN: Warm, Dry, normal turgor, no rashes or lesions noted. ED Treatment Course - LABORATORY CBC & Chemistry Diagram: 07/10/18 14:35 07/10/18 14:35 Medical Decision Making - Medical Decision Making 07/10/18 16:02 Patient is 33F with history of T1DM, gastroparesis, here today complaining of vomiting. Patient has associated chest pain and epigastric. Tachycardic to 130s. Likely secondary to dehydration and vomiting. Suspect that patient likely has exacerbation of her gastroparesis secondary to running out of her medication , but will evaluate for metabolic abnormalities. No leg swelling, do not believe patient has PE. Patient had episode of vomiting just after getting phenergan. Given 2L of fluids. Laboratory Tests 07/10/18 14:35 WBC 6.9 Hgb 14.0 Plt Count 321 CBC normal. CMP reassuring. Preg negative. UA clear. EKG shows normal sinus rhythm with rate of 100. No st elevations/depressions. No significant t wave abnormalities. No u waves. Normal axis. 07/10/18 17:17 HR 85 on reassessment, asking to go home. PO challenged. Passed. Will discharge home with return precautions. *DC/Admit/Observation/Transfer Diagnosis at time of Disposition: Gastroparalysis, Vomiting - Discharge Dispostion Disposition: HOME Condition at time of disposition: Good Decision to Admit order: No - Prescriptions Prescriptions: Promethazine HCl [Phenergan -] 25 mg PO TID #21 tablet - Referrals Referrals: Maira Oswald MD [Primary Care Provider] - - Patient Instructions Printed Discharge Instructions: DI for Gastroparesis Additional Instructions: Please return if you have any new, worsening or concerning symptoms. Please follow up with your primary care physician this week. Your medication has been sent to your pharmacy. - Post Discharge Activity
[2018-07-10] MEDS ORDERED: ACETAMINOPHEN INJECTION 100 ML IVPB ONE (14:14)
[2018-07-10] MEDS ORDERED: PROMETHAZINE HCL 25 MG/1 ML VIAL ONE (14:14)
[2018-07-10 15:05] LABS: BASO % 0.6 % (0-2.0); EOS % 0.8 % (0-4.5); HEMATOCRIT 41.9 % (32.4-45.2); LYMPH % 24.5 % (8-40); MCH 29.8 pg (25.7-33.7); MCHC 33.5 g/dl (32.0-36.0); MEAN PLT VOLUME 8.2 fl (7.5-11.1); MONO % 9.4 % (3.8-10.2); NEUT % 64.7 % (42.8-82.8); PLATELET COUNT 321 K/MM3 (134-434); RBC 4.71 M/mm3 (3.60-5.2); RDW 13.6 % (11.6-15.6); WHITE BLOOD COUNT 6.9 K/mm3 (4.0-10.0)
[2018-07-10 15:09] LABS: URINE APPEARANCE SLCLOUDY; URINE BILIRUBIN NEGATIVE (<2.0 mg/dL); URINE COLOR DKYELLOW; URINE GLUCOSE (UA) 1+ (NEGATIVE); URINE KETONE NEGATIVE (NEGATIVE); URINE LEUK ESTERASE NEGATIVE (NEGATIVE); URINE NITRITE NEGATIVE (NEGATIVE)
[2018-07-10 15:11] LABS: URINE PROTEIN 1+ (NEGATIVE)
[2018-07-10 15:13] LABS: EPI CELLS FEW /HPF (FEW); URINE MUCUS MANY
[2018-07-10] MEDS ORDERED: morphine CARPU-JECT 4 MG/1 ML DISP.SYRIN IVPUSH ONE (15:15)
[2018-07-10 15:19] LABS: ALBUMIN 3.8 g/dl (3.4-5.0); ANION GAP 9 (8-16); BILIRUBIN,TOTAL 0.5 mg/dL (0.2-1.0); BLOOD UREA NITROGEN 7 mg/dL (7-18); CALCIUM 9.1 mg/dL (8.5-10.1); CHLORIDE 104 mmol/L (98-107); CO2 29 mmol/L (21-32); CREATININE 0.7 mg/dL (0.55-1.02); GLUCOSE,RANDOM 139 mg/dL (74-106); LIPASE 120 U/L (73-393); SGPT/ALT 22 U/L (12-78); SODIUM 142 mmol/L (136-145); TOT PROT 7.2 g/dl (6.4-8.2)
[2018-07-10 15:22] LABS: ALK PHOS 97 U/L (45-117)
[2018-07-10] MEDS ORDERED: morphine SULFATE 4 MG/ML VIAL ONE (15:23)
[2018-07-10] MEDS ORDERED: LACTATED RINGERS SOLUTION 1000 ML INFUS.BAG IV ONE (15:29)
[2018-07-10 15:34] LABS: POTASSIUM 3.9 mmol/L (3.5-5.1); SGOT/AST 24 U/L (15-37)
[2018-07-10 17:01] VITALS: PULSE 99
[2018-07-10 18:28] VITALS: BP 154/111
--- NOTE | 2018-07-11 13:14 | EKG ---
Test Reason : Blood Pressure : / mmHG Vent. Rate : 100 BPM Atrial Rate : 100 BPM P-R Int : 144 ms QRS Dur : 070 ms QT Int : 364 ms P-R-T Axes : 086 081 074 degrees QTc Int : 469 ms NORMAL SINUS RHYTHM NORMAL ECG WHEN COMPARED WITH ECG OF 29-JUN-2018 22:33, NO SIGNIFICANT CHANGE WAS FOUND Confirmed by Aditya Vann MD ([id number]) on 07/11/2018 1:14:04 PM Referred By: Confirmed By:Aditya Vann MD
== END 2018-07-10 18:30 | disposition home or self-care (01) ==
LOC: JER 12:57
PROC: 3E033NZ Introduction of Analgesics, Hypnotics, Sedatives into Peripheral Vein, Percutaneous Approach (ICD-10-PCS; principal; 2018-07-10)
PROC: 3E033NZ Introduction of Analgesics, Hypnotics, Sedatives into Peripheral Vein, Percutaneous Approach (ICD-10-PCS; 2018-07-10)
PROC: 3E033GC Introduction of Other Therapeutic Substance into Peripheral Vein, Percutaneous Approach (ICD-10-PCS; 2018-07-10)
DX: E10.43 Type 1 diabetes mellitus with diabetic autonomic (poly)neuropathy (principal); K31.84 Gastroparesis; Z79.4 Long term (current) use of insulin
CPT/HCPCS: 36415; 80053; 81003; 81015; 82550; 83690; 84484; 84703; 85025; 87086; 93005; 93010; 96374; 96375; 99283-25; J0131; J7030

== ENCOUNTER 2018-08-14 12:53 | Emergency (ER) | payer OTHER ==
[2018-08-14 13:05] VITALS: BMI 17.4
[2018-08-14] MEDS ORDERED: ONDANSETRON 4 MG/2 ML VIAL ONE (13:44)
[2018-08-14] MEDS ORDERED: SODIUM CHLORIDE 1,000 ML IV STA (13:50)
[2018-08-14] MEDS ORDERED: PROMETHAZINE HCL 25 MG/1 ML VIAL IVPUSH ONE (13:51)
--- NOTE | 2018-08-14 13:52 | PDOC ---
Attending Attestation - Resident Resident Name: SladeluisanaYong - ED Attending Attestation I have performed the following: I have examined & evaluated the patient, The case was reviewed & discussed with the resident, I agree w/resident's findings & plan, Exceptions are as noted - HPI HPI: The patient is a 33 year old female, with a significant past medical history of Type I Diabetes, myomectomy of stomach, gastroparesis, who presents to the emergency department with two days of emesis. She states she used phenergan which she vomited shortly after. She states she used marijuana which did not alleviate her symptoms. She reports associated diffuse abdominal pain after episodes of emesis. She reports feeling generally weak and lightheaded. She states zofran and reglan does not work well for her. The patient denies chest pain, shortness of breath, headache and dizziness. The patient denies fever, chills, diarrhea and constipation. The patient denies dysuria, frequency, urgency and hematuria. Allergies: NKDA Traffic Rate Computer: Dr. Max Kelley - Physicial Exam PE: 08/14/18 16:20 GENERAL: The patient is awake, alert, and fully oriented, Nontoxic -comfortable appearing, tearful HEAD: Normocephalic, atraumatic. EYES: extraocular movements intact, sclera anicteric, conjunctiva clear. ENT: Normal voice, dry mucous membranes. NECK: Normal range of motion, supple LUNGS: Breath sounds equal, clear to auscultation bilaterally. No wheezes, no rhonchi, no rales. HEART: Tachycardic ABDOMEN: Soft, nontender, No guarding, no rebound. . No CVA tenderness EXTREMITIES: Normal range of motion, no edema. No clubbing or cyanosis. No cords, erythema, or tenderness. NEUROLOGICAL: No facial assymetry, Normal speech, PSYCH: Normal mood, normal affect. SKIN: Warm, Dry, normal turgor, - Medical Decision Making 08/14/18 13:52 ddx patient's symptoms includes gastroparesis will ck labs antiemetic, pain meds ua, uhcg will reassess 08/14/18 16:21 Will very tearful and affect, her blood work was reviewed it is unremarkable. UA pending She denies any abdominal pain states that she hurts pain all over and feels that there is "something wrong" We'll give the patient 1 mg Ativan patient seems very distraught and I feel there may be an element of anxiety 08/14/18 18:51 Patient feeling better abdomen soft nontender patient tolerating oral intake She is requesting to go home. She will go home with her friend. I discussed the physical exam findings, ancillary test results and final diagnoses with the patient. I answered all of the patient's questions. The patient was satisfied with the care received and felt comfortable with the discharge plan and treatment plan. The patient will call their primary care physician within 24 hours to arrange follow-up and will return to the Emergency Department with any new, persistent or worsening symptoms. Heart Score/ECG Review - ECG Impressions Comment:: 08/14/18 15:03 Twelve-lead EKG was performed and reviewed by me. There is normal sinus rhythm with a normal rate. Rate of 65 The axis is normal. The intervals are normal. There is normal R wave progression There are no ST or T wave abnormalities. Impression: Normal twelve-lead EKG
--- NOTE | 2018-08-14 14:02 | PDOC ---
History of Present Illness - General Chief Complaint: Nausea/Vomiting Stated Complaint: WEAKNESS, NAUSEA Time Seen by Provider: 08/14/18 13:43 History Source: Patient Exam Limitations: No Limitations - History of Present Illness Initial Comments: 08/14/18 14:02 Patient is a 33F with medical history of gastroparesis, s/p cholecystectomy, s/ p J tube and removal, type 1 diabetes, gastric myotomy here today complaining of vomiting for the past two days. Patient states that this is consistent with her prior episodes of vomiting. Patient reports that her myotomy has only resolved her symptoms a small amount. Patient states that she tried to take her phenergan but was unable to keep it down. She endorses trying medical marijuana but with no success. Endorses associated diffuse abdominal pain. Denies dysuria. Patient has lost 70 pounds in past year secondary to her repeated vomiting problems. Patient states that she feels weak and has palpitations, reports history of hypokalemia. Past History - Past Medical History Allergies/Adverse Reactions: Allergies Allergy/AdvReac Type Severity Reaction Status Date / Time shellfish derived Allergy Verified 07/10/18 12:58 famotidine [From Pepcid] AdvReac Verified 07/10/18 12:58 metoclopramide [From Reglan] AdvReac Verified 07/10/18 12:58 ondansetron AdvReac Verified 07/10/18 12:58 Home Medications: Ambulatory Orders Gabapentin [Neurontin -] 300 mg PO TID 03/14/18 Promethazine HCl [Phenergan Plain 6.25 MG/5 ML -] 5 ml PO TID 05/04/18 Clonazepam [Klonopin] 1 mg PO BID 06/11/18 Dronabinol [Marinol -] 2.5 mg PO ONCE PRN 06/11/18 Insulin Glargine,Hum.rec.anlog [Basaglar Kwikpen U-100] 25 unit SQ BID 06/11/18 Insulin Lispro [Admelog] 100 unit SQ ASDIR 06/11/18 Lisinopril [Prinivil] 5 mg PO DAILY 06/11/18 Mirtazapine [Remeron -] 15 mg PO DAILY 06/11/18 Omeprazole 20 mg PO DAILY 06/11/18 Trimethobenzamide HCl [Tigan -] 300 mg PO TID PRN #21 capsule 06/29/18 Promethazine HCl [Phenergan -] 25 mg PO TID #21 tablet 07/10/18 Asthma: Yes CVA: No COPD: No DVT: No Diabetes: Yes (IDDM) GI Disorders: Yes (gastropresis) HTN: Yes Hypercholesterolemia: Yes - Surgical History Abdominal Surgery: Yes (HX OF G.TUBE) Cholecystectomy: Yes - Immunization History Immunization Up to Date: Yes - Suicide/Smoking/Psychosocial Hx Smoking History: Current some day smoker Have you smoked in the past 12 months: Yes Number of Cigarettes Smoked Daily: 2 Information on smoking cessation initiated: No 'Breaking Loose' booklet given: 07/10/18 Hx Alcohol Use: No Drug/Substance Use Hx: No Substance Use Type: Marijuana Hx Substance Use Treatment: No Review of Systems - Review of Systems Comments:: 08/14/18 14:06 GENERAL/CONSTITUTIONAL: No fever or chills. No weakness. HEAD, EYES, EARS, NOSE AND THROAT: No change in vision. No sore throat. CARDIOVASCULAR: No chest pain or shortness of breath RESPIRATORY: No cough, wheezing, or hemoptysis. GASTROINTESTINAL: +nausea, +vomiting, no diarrhea/constipation. GENITOURINARY: No dysuria, frequency, or change in urination. MUSCULOSKELETAL: No joint or muscle swelling or pain. No neck or back pain. SKIN: No rash NEUROLOGIC: No headache, vertigo, loss of consciousness, or change in strength/ sensation. ENDOCRINE: No increased thirst. No abnormal weight change HEMATOLOGIC/LYMPHATIC: No anemia, easy bleeding, or history of blood clots. ALLERGIC/IMMUNOLOGIC: No hives or skin allergy. *Physical Exam - Vital Signs Last Vital Signs Temp Pulse Resp BP Pulse Ox 97.8 F 130 H 20 125/92 100 08/14/18 13:01 08/14/18 13:01 08/14/18 13:01 08/14/18 13:01 08/14/18 13:01 - Physical Exam Comments: 08/14/18 14:07 GENERAL: Awake, alert, and fully oriented, in no acute distress HEAD: No signs of trauma, normocephalic, atraumatic EYES: PERRLA, EOMI, sclera anicteric, conjunctiva clear ENT: Auricles normal inspection, hearing grossly normal, nares patent, oropharynx clear without exudates. Dry mucosa NECK: Normal ROM, supple, no lymphadenopathy, JVD, or masses LUNGS: No distress, speaks full sentences, clear to auscultation bilaterally HEART: Tachycardic, normal S1 and S2, no murmurs, rubs or gallops, peripheral pulses normal and equal bilaterally. ABDOMEN: Soft, nontender, normoactive bowel sounds. No guarding, no rebound. No masses EXTREMITIES: Normal inspection, Normal range of motion, no edema. No clubbing or cyanosis. NEUROLOGICAL: Cranial nerves II through XII grossly intact. Normal speech, no focal sensorimotor deficits SKIN: Warm, Dry, normal turgor, no rashes or lesions noted. ED Treatment Course - LABORATORY CBC & Chemistry Diagram: 08/14/18 14:55 08/14/18 14:55 Medical Decision Making - Medical Decision Making 08/14/18 14:08 Patient is 33F with history of gastroparesis, s/p cholecystectomy, type 1 dm, s/ p myotomy here today with vomiting. Vital signs notable for tachycardia. Suspect patient's vomiting is her gastroparesis. DDx includes, but is not limited to: pancreatitis, UTI, pyelo. Also suspect dehydration, hypokalemia, arrhythmia as complication of vomiting. Will give phenergan as patient endorses that this works best for her. Will give fluids. Will do ekg, cbc, cmp, ua, serum preg, lipase. Dispo pending. 08/14/18 15:37 Patient reassessed, HR in 60s. Resting comfortably. EKG shows normal sinus rhythm with rate of 65. No st elevations/depressions. No significant t wave abnormalities. No u waves. Normal axis. Normal intervals. 08/14/18 16:18 Laboratory Tests 08/14/18 08/14/18 08/14/18 13:51 14:55 14:55 WBC 5.1 Hgb 15.5 H Plt Count 325 BUN 7 Creatinine 0.7 Serum , Qual Negative CBC normal. CMP reassuring. K normal. Preg neg. Patient reassessed, now upset and shaking voluntarily. Will give 1mg of ativan. Patient complaining of pain "everywhere", refuses to localize. Will reassess. 08/14/18 18:41 Patient HR normal. Will discharge with return precautions. *DC/Admit/Observation/Transfer Diagnosis at time of Disposition: Vomiting - Discharge Dispostion Disposition: HOME Condition at time of disposition: Good Decision to Admit order: No - Referrals Referrals: Maira Oswald MD [Primary Care Provider] - - Patient Instructions Printed Discharge Instructions: DI for Vomiting -- Adult Additional Instructions: Please follow up with your primary care doctor this week. Please return if you have any new, worsening or concerning symptoms, especially fever, inability to eat, and increased pain. - Post Discharge Activity
[2018-08-14] MEDS ORDERED: morphine CARPU-JECT 4 MG/1 ML DISP.SYRIN IVPUSH ONE (14:12)
[2018-08-14] MEDS ORDERED: morphine SULFATE 4 MG/ML VIAL ONE (14:39)
[2018-08-14 15:17] LABS: BASO % 0.7 % (0-2.0); HEMATOCRIT 46.6 % (32.4-45.2); HEMOGLOBIN 15.5 GM/dL (10.7-15.3); LYMPH % 20.7 % (8-40); MCH 29.2 pg (25.7-33.7); MCHC 33.3 g/dl (32.0-36.0); MEAN CELL VOLUME 87.6 fl (80-96); MEAN PLT VOLUME 9.3 fl (7.5-11.1); MONO % 7.5 % (3.8-10.2); NEUT % 70.1 % (42.8-82.8); PLATELET COUNT 325 K/MM3 (134-434); RBC 5.32 M/mm3 (3.60-5.2); RDW 13.5 % (11.6-15.6); WHITE BLOOD COUNT 5.1 K/mm3 (4.0-10.0)
[2018-08-14 15:57] LABS: BLOOD UREA NITROGEN 7 mg/dL (7-18); CREATININE 0.7 mg/dL (0.55-1.3); GLUCOSE,RANDOM 133 mg/dL (74-106)
[2018-08-14 15:58] LABS: ALBUMIN 4.5 g/dl (3.4-5.0); ALK PHOS 106 U/L (45-117); ANION GAP 7 MMOL/L (8-16); BILIRUBIN,TOTAL 0.8 mg/dL (0.2-1); CALCIUM 9.9 mg/dL (8.5-10.1); CHLORIDE 99 mmol/L (98-107); CO2 30 mmol/L (21-32); LIPASE 90 U/L (73-393); POTASSIUM 3.5 mmol/L (3.5-5.1); SGOT/AST 25 U/L (15-37); SGPT/ALT 30 U/L (13-61); SODIUM 136 mmol/L (136-145); TOT PROT 8.6 g/dl (6.4-8.2)
[2018-08-14] MEDS ORDERED: LORazepam 2 MG/ML SDV VIAL ONE (16:22)
[2018-08-14 17:46] VITALS: BP 155/93; PULSE 72; TEMP 98
--- NOTE | 2018-08-14 18:05 | EKG ---
Test Reason : Blood Pressure : / mmHG Vent. Rate : 065 BPM Atrial Rate : 065 BPM P-R Int : 130 ms QRS Dur : 070 ms QT Int : 454 ms P-R-T Axes : 032 066 065 degrees QTc Int : 472 ms NORMAL SINUS RHYTHM NORMAL ECG WHEN COMPARED WITH ECG OF 10-JUL-2018 15:33, VENT. RATE HAS DECREASED BY 35 BPM Confirmed by CAROLA MCPHERSON MD ([id number]) on 08/14/2018 6:05:23 PM Referred By: Confirmed By:CAROLA MCPHERSON MD
== END 2018-08-14 18:53 | disposition home or self-care (01) ==
LOC: JER 12:53
PROC: 3E033NZ Introduction of Analgesics, Hypnotics, Sedatives into Peripheral Vein, Percutaneous Approach (ICD-10-PCS; principal; 2018-08-14)
PROC: 3E033GC Introduction of Other Therapeutic Substance into Peripheral Vein, Percutaneous Approach (ICD-10-PCS; 2018-08-14)
PROC: 3E0337Z Introduction of Electrolytic and Water Balance Substance into Peripheral Vein, Percutaneous Approach (ICD-10-PCS; 2018-08-14)
DX: R11.10 Vomiting, unspecified (principal); K31.84 Gastroparesis; F17.210 Nicotine dependence, cigarettes, uncomplicated; E78.00 Pure hypercholesterolemia, unspecified; I10 Essential (primary) hypertension; J45.909 Unspecified asthma, uncomplicated
CPT/HCPCS: 36415; 80053; 83690; 84703; 85025; 93005; 93010; 96361; 96374; 96375; 99283-25; J7030

== ENCOUNTER 2018-10-19 12:23 | Inpatient (IN) | payer OTHER ==
--- NOTE | 2018-10-19 12:35 | PDOC ---
History of Present Illness - General Stated Complaint: WEAKNESS (6 WKS ) Time Seen by Provider: 10/19/18 12:35 History Source: Patient Exam Limitations: No Limitations - History of Present Illness Initial Comments: 10/19/18 12:53 33 year old female with PMH gastroparesis, IDDM, s/p gastric myotomy, jtube and removal, hypokalemia presented to ED for generalized abdominal pain x2-3 days. She stated her pain is increasing, crampy, no alleviating or aggravating factors , non radiating. She admitted to nausea, vomiting (yellow, 10X a day), palpitations. She denied fever, chills, diarrhea, constipation, chest pain, shortness of breath, cough. She stated her symptoms feel similar to her prior episodes of gastroparesis. She was seen by her OB yesterday, Dr. Uribe, TVUS performed, was told it was too early to see a viable . She stated that zofran, reglan and pepcid increase her pain and vomiting in the past. Past History - Past Medical History Allergies/Adverse Reactions: Allergies Allergy/AdvReac Type Severity Reaction Status Date / Time shellfish derived Allergy Verified 07/10/18 12:58 famotidine [From Pepcid] AdvReac Verified 07/10/18 12:58 metoclopramide [From Reglan] AdvReac Verified 07/10/18 12:58 ondansetron AdvReac Verified 07/10/18 12:58 Home Medications: Ambulatory Orders Promethazine HCl [Phenergan Plain 6.25 MG/5 ML -] 5 ml PO TID 05/04/18 Clonazepam [Klonopin] 1 mg PO BID 06/11/18 Dronabinol [Marinol -] 5 mg PO ONCE PRN 06/11/18 Insulin Glargine,Hum.rec.anlog [Basaglar Kwikpen U-100] 25 unit SQ BID 06/11/18 Insulin Lispro [Admelog] 100 unit SQ ASDIR 06/11/18 Mirtazapine [Remeron -] 30 mg PO DAILY 06/11/18 Omeprazole 40 mg PO DAILY 06/11/18 Promethazine HCl [Phenergan -] 25 mg PO TID #21 tablet 07/10/18 Asthma: Yes CVA: No COPD: No DVT: No Diabetes: Yes (IDDM) GI Disorders: Yes (gastropresis) HTN: Yes Hypercholesterolemia: Yes - Surgical History Abdominal Surgery: Yes (HX OF G.TUBE) Cholecystectomy: Yes - Immunization History Immunization Up to Date: Yes - Suicide/Smoking/Psychosocial Hx Smoking History: Current some day smoker Have you smoked in the past 12 months: Yes Number of Cigarettes Smoked Daily: 2 'Breaking Loose' booklet given: 07/10/18 Hx Alcohol Use: No Drug/Substance Use Hx: No Substance Use Type: Marijuana Hx Substance Use Treatment: No Review of Systems - Review of Systems Able to Perform ROS?: Yes Comments:: 10/19/18 12:56 General: admitted to generalized weakness. denied fever, chills. HEENT: denied sore throat, rhinorrhea, ear pain. Heart: admitted to palpitations. denied chest pain, shortness of breath, lower extremity swelling. Respiratory: denied shortness of breath, cough. Abdomen: admitted to abdominal pain, nausea, vomiting. denied diarrhea, constipation. : denied vaginal bleeding, vaginal discharge, dysuria, increased urinary frequency, hematuria. Back: denied back pain. Musculoskeletal: denied joint pain, muscle pain. Neurological: denied headache, dizziness, numbness, tingling. Skin: denied rash, laceration, abrasion. *Physical Exam - Physical Exam Comments: 10/19/18 12:58 Constitutional: well developed, well nourished, appearing stated age. appears in pain. retching. HEENT: head NAAT. EOMI. PEERLA. Neck: supple. full ROM. Heart: tachycardic. regular rhythm. no murmurs. Lungs: clear to auscultation bilaterally. Abdomen: diffuse tenderness to palpation. positive guarding. negative rebound. negative rovsings. negative obturator. Extremities: peripheral pulses intact. no lower extremity edema. Back: no CVA tenderness bilaterally. Neurological: CN2-12 grossly intact. moves all four extremities. Psych: awake, alert, orientedx3, follows commands, answers questions appropriately. ED Treatment Course - LABORATORY CBC & Chemistry Diagram: 10/20/18 05:30 10/20/18 13:33 Medical Decision Making - Medical Decision Making 10/19/18 13:16 33 year old female with above PMH presented to ED for generalized abdominal pain associated with nausea/vomiting x2-3 days. She is 6 weeks by LMP, TVUS performed yesterday by Dr. Uribe showed no viable per patient. Initial Vital Signs Temp Pulse Resp BP Pulse Ox 97.9 F 118 H 18 145/98 100 10/19/18 12:25 10/19/18 12:25 10/19/18 12:25 10/19/18 12:25 10/19/18 12:25 Afebrile. Tachycardic. No tachypnea. Mild hypertension. No hypoxia on room air. IV tylenol ordered for pain. IV phenergan ordered for nausea/vomiting. - Pt stated this medication has worked the best for her gastroparesis in the past. 1L normal saline ordered for hydration. Pending EKG for tachycardia evaluation. Pending VBG, acetone, CMP for evaluation of possible DKA. Pending CMP for evaluation of possible electrolyte abnormalities. Pending beta quant, TVUS for evaluation of viable . 10/19/18 13:38 Pt reassessed, appears more comfortable prior to receiving medication or fluid hydration. Abdomen soft, diffuse abdominal tenderness. no rebound. no guarding. Nurse had difficulty placing IV. IV placed by me in left forearm. Pt now receiving IV fluid hydration and phenergan. EKG performed at 1303: rate 109, regular rhythm, normal axis, normal intervals, no acute ST changes. sinus tachycardia. 10/19/18 14:23 CBC WBC 15.5 K/mm3 (4.0-10.0) H 10/19/18 12:48 RBC 4.86 M/mm3 (3.60-5.2) 10/19/18 12:48 Hgb 13.9 GM/dL (10.7-15.3) 10/19/18 12:48 Hct 41.8 % (32.4-45.2) 10/19/18 12:48 MCV 86.1 fl (80-96) 10/19/18 12:48 MCH 28.6 pg (25.7-33.7) 10/19/18 12:48 MCHC 33.2 g/dl (32.0-36.0) 10/19/18 12:48 RDW 14.2 % (11.6-15.6) 10/19/18 12:48 Absolute Neuts (auto) 13.9 K/mm3 (1.5-8.0) H 10/19/18 12:48 Neutrophils % 89.8 % (42.8-82.8) H D 10/19/18 12:48 Lymphocytes % 6.2 % (8-40) L D 10/19/18 12:48 Monocytes % 3.8 % (3.8-10.2) 10/19/18 12:48 Eosinophils % 0.0 % (0-4.5) D 10/19/18 12:48 Basophils % 0.2 % (0-2.0) 10/19/18 12:48 Nucleated RBC % 0 % (0-0) 10/19/18 12:48 Leukocytosis. No anemia. CMP Lactic Acid 3.0 mmol/L (0.4-2.0) H* 10/19/18 13:32 Lactate 3.0 - Pt received 1L normal saline - Second 1L normal saline ordered VBG VBG pH 7.38 (7.32-7.42) 10/19/18 13:32 POC VBG pCO2 38.4 mmHg (38-52) 10/19/18 13:32 POC VBG pO2 51.5 mmHg (28-48) H D 10/19/18 13:32 Mixed VBG HCO3 22.2 meq/L (19-25) 10/19/18 13:32 No acidosis. Normal HCO3. 10/19/18 14:39 Pt reassessed, drinking soda. 10/19/18 14:54 CMP Sodium 129 mmol/L (136-145) L 10/19/18 12:51 Potassium 4.6 mmol/L (3.5-5.1) 10/19/18 12:51 Chloride 92 mmol/L (98-107) L 10/19/18 12:51 Carbon Dioxide 19 mmol/L (21-32) L 10/19/18 12:51 Anion Gap 18 MMOL/L (8-16) H 10/19/18 12:51 BUN 16 mg/dL (7-18) 10/19/18 12:51 Creatinine 1.1 mg/dL (0.55-1.3) 10/19/18 12:51 Creat Clearance w eGFR 56.52 (>60) 10/19/18 12:51 Random Glucose 473 mg/dL (74-106) H* 10/19/18 12:51 Lactic Acid 3.0 mmol/L (0.4-2.0) H* 10/19/18 13:32 Calcium 9.4 mg/dL (8.5-10.1) 10/19/18 12:51 Total Bilirubin 1.6 mg/dL (0.2-1) H 10/19/18 12:51 AST 43 U/L (15-37) H 10/19/18 12:51 ALT 29 U/L (13-61) 10/19/18 12:51 Alkaline Phosphatase 122 U/L (45-117) H 10/19/18 12:51 Total Protein 8.0 g/dl (6.4-8.2) 10/19/18 12:51 Albumin 4.1 g/dl (3.4-5.0) 10/19/18 12:51 Lipase 55 U/L (73-393) L 10/19/18 12:51 Beta HCG, Quant 75898.9 mIU/ml 10/19/18 12:51 Corrected sodium 135. Normal potassium. Anion gap positive. Hyperglycemia. Elevated bilirubin. Normal lipase. Insulin drip ordered. IV potassium 20 mEq mixed in 1000cc normal saline bag ordered. Will redraw BMP, VBG, lactate q1 hours after insulin drip is started. 10/19/18 17:17 Lab reported BMP hemolyzed. Will redraw. Repeat VBG: pH 7.26 pCO2 49 pO2 44.7 HCO3- 21 Pt now acidotic. 10/19/18 17:22 TVUS report: single live uterine dating 5 weeks 6 days. HR 124. 10/19/18 17:29 Lactate 4.4 - Will continue IV hydration 10/19/18 17:33 I spoke with ICU resident, Dr. Ochoa, about the case, she stated she will come down to evaluate the patient. 10/19/18 17:47 Pt accepted to ICU, Dr. Ochoa request UA/UC, blood culture, CXR. Pending above. *DC/Admit/Observation/Transfer Diagnosis at time of Disposition: DKA (diabetic ketoacidoses) - Discharge Dispostion Condition at time of disposition: Stable Decision to Admit order: Yes - Referrals - Patient Instructions - Post Discharge Activity
[2018-10-19] MEDS ORDERED: SODIUM CHLORIDE 1,000 ML IV STA ×4 (12:51→18:57)
[2018-10-19] MEDS ORDERED: PROMETHAZINE HCL 25 MG/1 ML VIAL IVPUSH ONE (13:04)
[2018-10-19] MEDS ORDERED: ACETAMINOPHEN 1000 MG/100 ML VIAL (NON FORMULARY) IVPB ONE (13:04)
[2018-10-19] MEDS ORDERED: PROMETHAZINE HCL 25 MG/1 ML VIAL ONE (13:10)
[2018-10-19] MEDS ORDERED: ACETAMINOPHEN INJECTION 100 ML IVPB ONE (13:11)
[2018-10-19 13:28] LABS: BASO % 0.2 % (0-2.0); HEMATOCRIT 41.8 % (32.4-45.2); HEMOGLOBIN 13.9 GM/dL (10.7-15.3); LYMPH % 6.2 % (8-40); MCH 28.6 pg (25.7-33.7); MCHC 33.2 g/dl (32.0-36.0); MEAN CELL VOLUME 86.1 fl (80-96); MONO % 3.8 % (3.8-10.2); NEUT % 89.8 % (42.8-82.8); PLATELET COUNT 325 K/MM3 (134-434); RBC 4.86 M/mm3 (3.60-5.2); RDW 14.2 % (11.6-15.6); WHITE BLOOD COUNT 15.5 K/mm3 (4.0-10.0)
[2018-10-19 13:49] LABS: VENOUS PC02 38.4 mmHg (38-52); VENOUS PH 7.38 (7.32-7.42); VENOUS PO2 51.5 mmHg (28-48)
[2018-10-19 14:23] LABS: ALBUMIN 4.1 g/dl (3.4-5.0); ALK PHOS 122 U/L (45-117); ANION GAP 18 MMOL/L (8-16); BILIRUBIN,TOTAL 1.6 mg/dL (0.2-1); BLOOD UREA NITROGEN 16 mg/dL (7-18); CALCIUM 9.4 mg/dL (8.5-10.1); CHLORIDE 92 mmol/L (98-107); CO2 19 mmol/L (21-32); CREATININE 1.1 mg/dL (0.55-1.3); LIPASE 55 U/L (73-393); POTASSIUM 4.6 mmol/L (3.5-5.1); SGOT/AST 43 U/L (15-37); SGPT/ALT 29 U/L (13-61); SODIUM 129 mmol/L (136-145)
[2018-10-19 14:43] LABS: GLUCOSE,RANDOM 473 mg/dL (74-106)
--- NOTE | 2018-10-19 14:48 | PDOC ---
Attending Attestation - Resident Resident Name: Yasmeen Umaña - ED Attending Attestation I have performed the following: I have examined & evaluated the patient, The case was reviewed & discussed with the resident, I agree w/resident's findings & plan - HPI HPI: 10/19/18 14:42 33-year-old female with history of insulin-dependent diabetes, gastroparesis, recently diagnosed first trimester status post first ultrasound yesterday with IUP presents now with lightheadedness in the setting of intractable nausea/vomiting 3 days. Typical gastroparesis abdominal pain, no fevers or chills or cardiopulmonary complaints. No vaginal bleeding or discharge. - Physicial Exam PE: 10/19/18 14:43 Tachycardia, otherwise afebrile with normal blood pressure. Ill-appearing, dehydrated with dry mucous membranes Heart is regular tachycardia, lungs are clear Abdomen is soft and nondistended and diffusely tender without guarding or rebound, bowel sounds normal Neurologically intact - Critical Care Time Total Critical Care Time: 45 Critical Care Statement: The care of this patient involved high complexity decision making to prevent further life threatening deterioration of the patient 's condition and/or to evaluate & treat vital organ system(s) failure or risk of failure. - Medical Decision Making 10/19/18 14:45 33-year-old female with intractable nausea/vomiting, possibly secondary to gastroparesis, now with worsening generalized weakness and dehydration tachycardia, otherwise benign abdominal exam. Likely gastroparesis, rule out ectopic, rule out DKA Labs, VBG, acetone, lactate IV fluid resuscitation, pain control Transvaginal ultrasound Workup reveals early DKA with an anion gap of 18, glucose 470s, lactate 3, wbc 15. start insulin drip, ivf, schedule repeat labs. admit Heart Score/ECG Review #1 ECG reviewed & interpreted by me at: 13:03 General ECG Interpretation: Sinus Rhythm (tachy at 109), Normal Intervals (qtc 471), No acute ischemic changes
[2018-10-19] MEDS ORDERED: SODIUM CHLORIDE 0.9%/KCL 20 MEQ/1,000 ML INFUS.BAG IV SCH ×2 (15:00→19:07)
[2018-10-19] MEDS ORDERED: INSULIN REGULAR 100 UNITS in SODIUM CHLORIDE 99 ML IVPB SCH (15:00)
[2018-10-19] MEDS ORDERED: INSULIN REGULAR HUMAN 100 UNITS/ML *VIAL ONE (15:19)
--- NOTE | 2018-10-19 15:27 | EKG ---
Test Reason : Blood Pressure : / mmHG Vent. Rate : 109 BPM Atrial Rate : 109 BPM P-R Int : 138 ms QRS Dur : 076 ms QT Int : 350 ms P-R-T Axes : 077 060 046 degrees QTc Int : 471 ms SINUS TACHYCARDIA OTHERWISE NORMAL ECG WHEN COMPARED WITH ECG OF 14-AUG-2018 15:01, VENT. RATE HAS INCREASED BY 44 BPM Confirmed by MALIK WILSON MD ([id number]) on 10/19/2018 3:26:55 PM Referred By: Confirmed By:MALIK WILSON MD
[2018-10-19 16:50] LABS: VENOUS PH 7.26 (7.32-7.42); VENOUS PO2 44.7 mmHg (28-48)
[2018-10-19 17:58] LABS: ANION GAP 13 MMOL/L (8-16); BLOOD UREA NITROGEN 16 mg/dL (7-18); CALCIUM 9.1 mg/dL (8.5-10.1); CHLORIDE 98 mmol/L (98-107); CO2 22 mmol/L (21-32); CREATININE 0.9 mg/dL (0.55-1.3); POTASSIUM 3.5 mmol/L (3.5-5.1); SODIUM 134 mmol/L (136-145)
[2018-10-19 18:00] LABS: GLUCOSE,RANDOM 395 mg/dL (74-106)
--- NOTE | 2018-10-19 18:01 | CONSULT ---
Consultation: REQUESTING PROVIDER: CONSULT REQUEST: We have been asked to medically evaluate this patient for ( specify). HISTORY OF PRESENT ILLNESS: 33 year old woman with lengthy history of gastroparesis w/ J tube (removed 2017), IDDM, gastric myotomy, hypokalemia, approx 5 weeks presenting with nausea, vomiting (10x a day), palpitations. She reports that zofran, reglan and pepcid have increased her pain and vomiting in the past. She denies fever, chills, diarrhea, constipation, chest pain or SOB. In the past the patient has had J tube placed for gastroparesis that incidentally got removed in May of this year and patient did not desire tube replacement. The patient reports that she was last admitted for DKA in August 2017. ED Course notable for: - WBC 15.5 - pH 7.26 - Anion gap 18, patient received NS w/ 20mEqK, insulin drip - Rpt cmp w/ anion gap of 14 - glucose of 473 --> 395 - Neg trop REVIEW OF SYSTEMS: CONSTITUTIONAL: Absent: fever, chills, diaphoresis, generalized weakness, malaise, loss of appetite, weight change HEENT: Absent: rhinorrhea, nasal congestion, throat pain, throat swelling, difficulty swallowing, mouth swelling, ear pain, eye pain, visual changes CARDIOVASCULAR: Absent: chest pain, syncope, palpitations, irregular heart rate, lightheadedness , peripheral edema RESPIRATORY: Absent: cough, shortness of breath, dyspnea with exertion, orthopnea, wheezing, stridor, hemoptysis GASTROINTESTINAL: Absent: abdominal pain, abdominal distension, nausea, vomiting, diarrhea, constipation, melena, hematochezia GENITOURINARY: Absent: dysuria, frequency, urgency, hesitancy, hematuria, flank pain, genital pain MUSCULOSKELETAL: Absent: myalgia, arthralgia, joint swelling, back pain, neck pain SKIN: Absent: rash, itching, pallor HEMATOLOGIC/IMMUNOLOGIC: Absent: easy bleeding, easy bruising, lymphadenopathy, frequent infections ENDOCRINE: Absent: unexplained weight gain, unexplained weight loss, heat intolerance, cold intolerance NEUROLOGIC: Absent: headache, focal weakness or paresthesias, dizziness, unsteady gait, seizure, mental status changes, bladder or bowel incontinence PSYCHIATRIC: Absent: anxiety, depression, suicidal or homicidal ideation, hallucinations. PHYSICAL EXAMINATION Vital Signs - 24 hr 10/19/18 10/19/18 12:25 17:24 Temperature 97.9 F 98.9 F Pulse Rate 118 H Pulse Rate [ 111 H Apical] Respiratory 18 16 Rate Blood Pressure 145/98 Blood Pressure 159/95 [Right Arm] O2 Sat by Pulse 100 98 Oximetry (%) GENERAL: Awake, alert, and fully oriented, in no acute distress. HEAD: Normal with no signs of trauma. EYES: Pupils equal, round and reactive to light, extraocular movements intact EARS, NOSE, THROAT: Moist mucous membranes. NECK: Normal range of motion, supple without lymphadenopathy, JVD, or masses. LUNGS: Breath sounds equal, clear to auscultation bilaterally. No wheezes, and no crackles. No accessory muscle use. HEART: Regular rate and rhythm, normal S1 and S2 without murmur, rub or gallop. ABDOMEN: Soft, nontender, not distended, normoactive bowel sounds, no guarding, no rebound, no masses. No hepatomegaly or splenomegaly. MUSCULOSKELETAL: Normal range of motion at all joints. No bony deformities or tenderness. No CVA tenderness. NEUROLOGICAL: Cranial nerves II-XII intact. PSYCHIATRIC: Cooperative. Good eye contact. Appropriate mood and affect. SKIN: Warm, dry, normal turgor, no rashes or lesions noted. Laboratory Results - last 24 hr 10/19/18 10/19/18 10/19/18 12:48 12:51 13:32 WBC 15.5 H RBC 4.86 Hgb 13.9 Hct 41.8 MCV 86.1 MCH 28.6 MCHC 33.2 RDW 14.2 Plt Count 325 MPV 9.0 Absolute Neuts (auto) 13.9 H Neutrophils % 89.8 H D Lymphocytes % 6.2 L D Monocytes % 3.8 Eosinophils % 0.0 D Basophils % 0.2 Nucleated RBC % 0 Platelet Comment No clumping noted VBG pH 7.38 POC VBG pCO2 38.4 POC VBG pO2 51.5 H D Mixed VBG HCO3 22.2 Sodium 129 L Potassium 4.6 Chloride 92 L Carbon Dioxide 19 L Anion Gap 18 H BUN 16 Creatinine 1.1 Creat Clearance w eGFR 56.52 Random Glucose 473 H* Lactic Acid Calcium 9.4 Total Bilirubin 1.6 H AST 43 H ALT 29 Alkaline Phosphatase 122 H Total Protein 8.0 Albumin 4.1 Lipase 55 L Beta HCG, Quant 88555.9 Acetone, Qual 10/19/18 10/19/18 10/19/18 13:32 13:32 15:45 WBC RBC Hgb Hct MCV MCH MCHC RDW Plt Count MPV Absolute Neuts (auto) Neutrophils % Lymphocytes % Monocytes % Eosinophils % Basophils % Nucleated RBC % Platelet Comment VBG pH POC VBG pCO2 POC VBG pO2 Mixed VBG HCO3 Sodium Potassium Chloride Carbon Dioxide Anion Gap BUN Creatinine Creat Clearance w eGFR Random Glucose Lactic Acid 3.0 H* 4.4 H* Calcium Total Bilirubin AST ALT Alkaline Phosphatase Total Protein Albumin Lipase Beta HCG, Quant Acetone, Qual Negative L 10/19/18 10/19/18 10/19/18 15:45 15:45 17:19 WBC RBC Hgb Hct MCV MCH MCHC RDW Plt Count MPV Absolute Neuts (auto) Neutrophils % Lymphocytes % Monocytes % Eosinophils % Basophils % Nucleated RBC % Platelet Comment VBG pH 7.26 L POC VBG pCO2 49.0 D POC VBG pO2 44.7 Mixed VBG HCO3 21.0 Sodium Cancelled 134 L Potassium Cancelled 3.5 Chloride Cancelled 98 Carbon Dioxide Cancelled 22 Anion Gap Cancelled 13 BUN Cancelled 16 Creatinine Cancelled 0.9 Creat Clearance w eGFR Cancelled > 60 Random Glucose Cancelled Lactic Acid Calcium Cancelled 9.1 Total Bilirubin AST ALT Alkaline Phosphatase Total Protein Albumin Lipase Beta HCG, Quant Acetone, Qual Active Medications Generic Name Dose Route Start Last Admin Trade Name Freq PRN Reason Stop Dose Admin Insulin Human Regular 100 100 mls @ 6.12 mls/hr 10/19/18 15:00 10/19/18 16:00 units/ Sodium Chloride IVPB 0.1 units/kg/hr TITR DREA 6.12 mls/hr Administration Protocol 0.1 UNITS/KG/HR Potassium Chloride/Sodium Chloride 20 meq in 1,000 mls @ 100 mls/hr 10/19/18 15:00 10/19/18 16:00 Ns+20 Meq Kcl - IV 100 mls/hr ASDIR DREA Administration ASSESSMENT/PLAN: 33 year old woman with lengthy history of gastroparesis w/ J tube (removed 2017), IDDM, gastric myotomy, hypokalemia, approx 5 weeks presenting with nausea, vomiting (10x a day), palpitations. She reports that zofran, reglan and pepcid have increased her pain and vomiting in the past. She denies fever, chills, diarrhea, constipation, chest pain or SOB. ED Course notable for: - WBC 15.5 - pH 7.26 - Anion gap 18, patient received NS w/ 20mEqK, insulin drip - Rpt cmp w/ anion gap of 14 - glucose of 473 --> 395 - Neg trop Endo DKA, glucose of 473, anion gap of 18 Once glucose is at 200 and anion gap is closed patient to be started on SQ insulin multidose regimen with insulin gtt for 2 hours, then IV insulin can be d /c. - Insulin gtt - NS w/ 20mEq K - BGM Q1H - monitor BMP, trend K, trend anion gap ID Leukocytosis, likely reactive - Will trend - UA, Ucx pending OBGYN First trimester , too early to be visualized by TVUS - recommend OBGYN consult F/E/N - regular diet - NS w/ 20mEq K DVT ppx: SCDs Dispo: We will continue to follow the patient. Thank you for this consultative opportunity. Visit type - Emergency Visit Emergency Visit: Yes Care time: The patient presented to the Emergency Department on the above date and was hospitalized for further evaluation of their emergent condition. - New Patient This patient is new to me today: Yes Date on this admission: 10/19/18 - Critical Care Critical Care patient: No
[2018-10-19] MEDS ORDERED: DRONABINOL 2.5 MG CAPSULE PO PRN (18:21)
[2018-10-19] MEDS ORDERED: MORPHINE SULFATE 2 MG/ML VIAL IVPUSH PRN (18:31)
--- NOTE | 2018-10-19 19:50 | HP ---
CHIEF COMPLAINT: N/V x 3 days PCP: Maira Guerrier OBGYN: Dr. Sara Uribe HISTORY OF PRESENT ILLNESS: 33 year old female 5 weeks with a PMH significant for IDDM, gastroparesis s/p J-tube and removal, and anxiety presented to the ED with 2-3 days of billious vomiting, nausea, and abdominal cramps. She had very little PO intake and did not take her insulin. Denies MCGILL, fever, seizures, sob, congestion , hemoptysis, no diarrhea. She has had chronic GI issues since 08/2017 when she was diagnosed with gastroparesis. She has intermittent episodes of nausea vomiting, followed by GI specialist Dr. Neymar Thomas whom she saw 1 month ago. Upon admission to the ED, patient was tachycardic at 118, mild HTN 145/98. Labs notable for glucose of 473, WBC 15.5, anion gap 18, lactic acid 4.4. She was given 2 L of fluid and placed on an insulin drip. Glucose went down to 320. Patient was transferred to the ICU and color drum worker Dr. Feng was consulted who recommended keeping insulin drip overnight. Patient still reporting abdominal cramping and given IV morphine. Recent Travel: No PAST MEDICAL HISTORY: IDDM (Dx 2009) Gastroparesis GERD HLD Fibroadenoma of b/l breasts Anxiety PAST SURGICAL HISTORY: J-tube at [facility] 05/19/18, now dislodged Gastric myotomy Cholecystectomy Social History: Has 4 children ages 15 - 9, 5 weeks with 5th child Smoking: Trying to cut down when she found out she was , now 1 cigarette QOD Alcohol: Social Drugs: Prescribed marijuana for nausea vomiting Family History: Diabetes: Mother HTN: father Allergies shellfish derived Allergy (Verified 07/10/18 12:58) famotidine [From Pepcid] Adverse Reaction (Verified 07/10/18 12:58) metoclopramide [From Reglan] Adverse Reaction (Verified 07/10/18 12:58) ondansetron Adverse Reaction (Verified 07/10/18 12:58) HOME MEDICATIONS: Home Medications Medication Instructions Recorded Promethazine HCl [Phenergan Plain 5 ml PO TID 05/04/18 6.25 MG/5 ML -] Clonazepam [Klonopin] 1 mg PO BID 06/11/18 Dronabinol [Marinol -] 5 mg PO ONCE PRN 06/11/18 Insulin Glargine,Hum.rec.anlog 25 unit SQ BID 06/11/18 [Basaglar Kwikpen U-100] Insulin Lispro [Admelog] 100 unit SQ ASDIR 06/11/18 Mirtazapine [Remeron -] 30 mg PO DAILY 06/11/18 Omeprazole 40 mg PO DAILY 06/11/18 Promethazine HCl [Phenergan -] 25 mg PO TID #21 tablet 07/10/18 REVIEW OF SYSTEMS CONSTITUTIONAL: (+) generalized weakness, loss of appetite, weight change Absent: fever, chills, diaphoresis, malaise HEENT: Absent: rhinorrhea, nasal congestion, throat pain, throat swelling, difficulty swallowing, mouth swelling, ear pain, eye pain, visual changes CARDIOVASCULAR: (+) intermittent palpitations Absent: chest pain, syncope, irregular heart rate, lightheadedness, peripheral edema RESPIRATORY: Absent: cough, shortness of breath, dyspnea with exertion, orthopnea, wheezing, stridor, hemoptysis GASTROINTESTINAL: (+) abdominal pain, nausea, vomiting Absent: abdominal distension, diarrhea, constipation, melena, hematochezia GENITOURINARY: Absent: dysuria, frequency, urgency, hesitancy, hematuria, flank pain, genital pain MUSCULOSKELETAL: Absent: myalgia, arthralgia, joint swelling, back pain, neck pain SKIN: Absent: rash, itching, pallor HEMATOLOGIC/IMMUNOLOGIC: Absent: easy bleeding, easy bruising, lymphadenopathy, frequent infections ENDOCRINE: Absent: unexplained weight gain, unexplained weight loss, heat intolerance, cold intolerance NEUROLOGIC: Absent: headache, focal weakness or paresthesias, dizziness, unsteady gait, seizure, mental status changes, bladder or bowel incontinence PSYCHIATRIC: (+) Anxiety Absent: depression, suicidal or homicidal ideation, hallucinations. PHYSICAL EXAMINATION Vital Signs - 24 hr 10/19/18 10/19/18 12:25 17:24 Temperature 97.9 F 98.9 F Pulse Rate 118 H Pulse Rate [ 111 H Apical] Respiratory 18 16 Rate Blood Pressure 145/98 Blood Pressure 159/95 [Right Arm] O2 Sat by Pulse 100 98 Oximetry (%) GENERAL: Lying on left side, appears weak and uncomfortable, awake, alert, and fully oriented HEAD: Normal with no signs of trauma. EYES: Pupils equal, round and reactive to light, extraocular movements intact, sclera anicteric, conjunctiva clear. No lid lag. EARS, NOSE, THROAT: lip piercing on right lower lip nares patent, oropharynx clear without exudates. Moist mucous membranes. NECK: Normal range of motion, supple without lymphadenopathy, JVD, or masses. LUNGS: Breath sounds equal, clear to auscultation bilaterally. No wheezes, and no crackles. No accessory muscle use. HEART: Rapid rate and regular rhythm, normal S1 and S2 without murmur, rub or gallop. ABDOMEN: Soft, diffusely tender not distended, normoactive bowel sounds, no guarding, no rebound, no masses. No hepatomegaly or splenomegaly. MUSCULOSKELETAL: Normal range of motion at all joints. No bony deformities or tenderness. No CVA tenderness. UPPER EXTREMITIES: 2+ pulses, warm, well-perfused. No cyanosis. No clubbing. No peripheral edema. LOWER EXTREMITIES: 2+ pulses, warm, well-perfused. No calf tenderness. No peripheral edema. NEUROLOGICAL: No facial droop, normal speech. Normal gait. PSYCHIATRIC: Cooperative, good eye contact. Slightly irritable mood, flat affect. SKIN: Warm, dry, normal turgor, no rashes or lesions noted, normal capillary refill. Laboratory Results - last 24 hr 10/19/18 10/19/18 10/19/18 12:48 12:51 13:32 WBC 15.5 H RBC 4.86 Hgb 13.9 Hct 41.8 MCV 86.1 MCH 28.6 MCHC 33.2 RDW 14.2 Plt Count 325 MPV 9.0 Absolute Neuts (auto) 13.9 H Neutrophils % 89.8 H D Lymphocytes % 6.2 L D Monocytes % 3.8 Eosinophils % 0.0 D Basophils % 0.2 Nucleated RBC % 0 Platelet Comment No clumping noted VBG pH 7.38 POC VBG pCO2 38.4 POC VBG pO2 51.5 H D Mixed VBG HCO3 22.2 Sodium 129 L Potassium 4.6 Chloride 92 L Carbon Dioxide 19 L Anion Gap 18 H BUN 16 Creatinine 1.1 Creat Clearance w eGFR 56.52 Random Glucose 473 H* Lactic Acid Calcium 9.4 Total Bilirubin 1.6 H AST 43 H ALT 29 Alkaline Phosphatase 122 H Total Protein 8.0 Albumin 4.1 Lipase 55 L Beta HCG, Quant 82825.9 Acetone, Qual 10/19/18 10/19/18 10/19/18 13:32 13:32 15:45 WBC RBC Hgb Hct MCV MCH MCHC RDW Plt Count MPV Absolute Neuts (auto) Neutrophils % Lymphocytes % Monocytes % Eosinophils % Basophils % Nucleated RBC % Platelet Comment VBG pH POC VBG pCO2 POC VBG pO2 Mixed VBG HCO3 Sodium Potassium Chloride Carbon Dioxide Anion Gap BUN Creatinine Creat Clearance w eGFR Random Glucose Lactic Acid 3.0 H* 4.4 H* Calcium Total Bilirubin AST ALT Alkaline Phosphatase Total Protein Albumin Lipase Beta HCG, Quant Acetone, Qual Negative L 10/19/18 10/19/18 10/19/18 15:45 15:45 17:19 WBC RBC Hgb Hct MCV MCH MCHC RDW Plt Count MPV Absolute Neuts (auto) Neutrophils % Lymphocytes % Monocytes % Eosinophils % Basophils % Nucleated RBC % Platelet Comment VBG pH 7.26 L POC VBG pCO2 49.0 D POC VBG pO2 44.7 Mixed VBG HCO3 21.0 Sodium Cancelled 134 L Potassium Cancelled 3.5 Chloride Cancelled 98 Carbon Dioxide Cancelled 22 Anion Gap Cancelled 13 BUN Cancelled 16 Creatinine Cancelled 0.9 Creat Clearance w eGFR Cancelled > 60 Random Glucose Cancelled 395 H* Lactic Acid Calcium Cancelled 9.1 Total Bilirubin AST ALT Alkaline Phosphatase Total Protein Albumin Lipase Beta HCG, Quant Acetone, Qual EKG - Rate 109, regular rhythm, normal axis, normal intervals, no acute ST changes. sinus tachycardia. Transvaginal US - Single live uterine dating 5 weeks 6 days. HR 124. ASSESSMENT/PLAN: 33 year old female 5 weeks with a PMH significant for IDDM, gastroparesis s/p J-tube and removal, and anxiety presented to the ED with 2-3 days of billious vomiting, nausea, and abdominal cramps. Glucose was 473, positive Anion gap (18) lactic acid 4.4, VBG ph 7.26. Started on insulin drip, transferred to the ICU. ?DKA vs HHS - Likely secondary to dehydration from 3 days of n/v with very little PO intake and no insulin - Glucose 473 - Positive anion gap (18) - Lactic acid 4.4 - VBG pH decreased 7.26 - Bicarb WNL 21.0 - Acetone negative - Patient given IV fluids and started on insulin drip - Anion gap closed (13) - Clear liquid DM diet now - - Admitted to ICU - Monitor BGS q1hr, BMP q4h - Consulted color drum worker Dr. Feng who recommended keeping insulin drip overnight - Repeat lactic acid pending Sepsis - SIRS criteria met (P 118, WBC 15.5) - Possible GI etiology with 2 days of n/v - Elevated AST of 43, Alk phos 122, elevated bilirubin - Abdominal US pending - Lipase decreased at 55 - Blood and urine cultures pending - No respiratory symptoms and patient is , so hold CXR for now - GI consult ordered9 IDDM - Resume Levemir 25U SQ BID - Monitor finger stick TIDAC - SS with novolog - Diabetic diet - Endocrine consult ordered Gastroparesis - Mirazapine 30 mg PO qday for appetite stimulant - Morphine 2 mg IVP q4h for pain - Promethazine 12.5 suppository q4h PRN for nausea vomiting GERD - Protonix 40 mg PO qday 5 weeks - TVUS report: single live uterine dating 5 weeks 6 days. HR 124. - vitamin qday - Consult with OBGYN Dr. Uribe ordered Anxiety - Klonopin 1 mg PO BID Prophylaxis - DVT: Heparin SQ - GI: Omeprazole 40 mg PO qday FEN - NS with 20 meq K @150 cc/hr - Replete as indicated, BMP q 4 hrs - Clear diabetic diet Disp: Patient requires further inpatient monitoring. Visit type - Emergency Visit Emergency Visit: Yes ED Registration Date: 10/19/18 Care time: The patient presented to the Emergency Department on the above date and was hospitalized for further evaluation of their emergent condition. - New Patient This patient is new to me today: Yes Date on this admission: 10/19/18 - Critical Care Critical Care patient: No
[2018-10-19 19:58] LABS: URINE APPEARANCE CLEAR; URINE BILIRUBIN NEGATIVE (<2.0 mg/dL); URINE COLOR LTYELLOW; URINE GLUCOSE (UA) 3+ (NEGATIVE); URINE KETONE 1+ (NEGATIVE); URINE LEUK ESTERASE NEGATIVE (NEGATIVE); URINE NITRITE NEGATIVE (NEGATIVE); URINE PROTEIN NEGATIVE (NEGATIVE); URINE UROBILINOGEN NEGATIVE mg/dL (0.2-1.0)
[2018-10-19] MEDS ORDERED: INSULIN (LEVEMIR) 100 UNITS/ML UNITS SQ ONE (20:00)
[2018-10-19] MEDS ORDERED: POTASSIUM CHLORIDE ORAL LIQUID 20 MEQ/15 ML PO ONE (20:07)
[2018-10-19] MEDS ORDERED: INSULIN (NOVOLOG) ASPART 100 UNITS/ML 10ML VIAL ONE ×2 (20:13→21:47)
[2018-10-19] MEDS: HEPARIN NA (PORCINE) 5,000 UNITS/ML 1ML VIAL SQ SCH (20:18)
[2018-10-19] MEDS ORDERED: BISACODYL 5 MG TABLET.DR (FP) PO ONE (21:19)
[2018-10-19] MEDS: MORPHINE SULFATE 2 MG/ML VIAL IVPUSH PRN (21:30)
[2018-10-19] MEDS: clonazePAM 0.5 MG TABLET PO SCH (22:31)
[2018-10-19] MEDS: PROMETHAZINE HCL 12.5 MG SUPPOSITORY PR PRN (22:31)
[2018-10-19] MEDS ORDERED: morphine SULFATE 4 MG/ML VIAL ONE (23:21)
[2018-10-19 23:41] LABS: ANION GAP 12 MMOL/L (8-16); BLOOD UREA NITROGEN 14 mg/dL (7-18); CALCIUM 9.1 mg/dL (8.5-10.1); CHLORIDE 102 mmol/L (98-107); CO2 22 mmol/L (21-32); CREATININE 0.8 mg/dL (0.55-1.3); GLUCOSE,RANDOM 202 mg/dL (74-106); MAGNESIUM 2.3 mg/dL (1.8-2.4); POTASSIUM 3.9 mmol/L (3.5-5.1); SODIUM 136 mmol/L (136-145)
[2018-10-19] MEDS ORDERED: morphine SULFATE 4 MG/ML VIAL IVPUSH ONE (23:45)
[2018-10-19] MEDS: CHLORHEXIDINE GLUCONATE 4% CLEANSER FOR DECOLONIZATION TP SCH (23:57)
[2018-10-19] MEDS: MUPIROCIN 2% TOPICAL OINTMENT FOR DECOLONIZATION NS SCH (23:58)
[2018-10-20] MEDS ORDERED: PT OWN MED DRAWER 7, Y5N ONE ×4 (05:51→20:51)
[2018-10-20] MEDS: MORPHINE SULFATE 2 MG/ML VIAL IVPUSH PRN ×4 (06:05→20:36)
[2018-10-20] MEDS: HEPARIN NA (PORCINE) 5,000 UNITS/ML 1ML VIAL SQ SCH ×3 (06:05→21:02)
[2018-10-20] MEDS: PROMETHAZINE HCL 12.5 MG SUPPOSITORY PR PRN (06:07)
[2018-10-20 06:30] LABS: BASO % 0.6 % (0-2.0); EOS % 0.2 % (0-4.5); HEMATOCRIT 41.8 % (32.4-45.2); HEMOGLOBIN 13.8 GM/dL (10.7-15.3); LYMPH % 13.4 % (8-40); MCH 28.6 pg (25.7-33.7); MCHC 33.1 g/dl (32.0-36.0); MEAN CELL VOLUME 86.4 fl (80-96); MEAN PLT VOLUME 8.7 fl (7.5-11.1); MONO % 8.8 % (3.8-10.2); PLATELET COUNT 302 K/MM3 (134-434); RBC 4.84 M/mm3 (3.60-5.2); RDW 14.2 % (11.6-15.6)
[2018-10-20] MEDS ORDERED: INSULIN (LEVEMIR) 100 UNITS/ML UNITS SQ SCH (07:00)
[2018-10-20 07:01] LABS: ALBUMIN 3.8 g/dl (3.4-5.0); ALK PHOS 109 U/L (45-117); ANION GAP 10 MMOL/L (8-16); BILIRUBIN,TOTAL 1.5 mg/dL (0.2-1); BLOOD UREA NITROGEN 14 mg/dL (7-18); CALCIUM 8.5 mg/dL (8.5-10.1); CHLORIDE 103 mmol/L (98-107); CO2 24 mmol/L (21-32); CREATININE 0.5 mg/dL (0.55-1.3); GLUCOSE,RANDOM 173 mg/dL (74-106); POTASSIUM 3.8 mmol/L (3.5-5.1); SGOT/AST 11 U/L (15-37); SGPT/ALT 22 U/L (13-61); SODIUM 137 mmol/L (136-145); TOT PROT 7.2 g/dl (6.4-8.2)
--- NOTE | 2018-10-20 08:48 | PN ---
Physical Exam: SUBJECTIVE: Patient seen and examined. No acute events overnight. OBJECTIVE: Vital Signs Period Temp Pulse Resp BP Sys/Powell Pulse Ox Last 24 Hr 97.5 F-98.9 F 88-124 12-18 145-167/92-102 98-100 GENERAL: Awake, alert, and fully oriented, in no acute distress. HEAD: Normal with no signs of trauma. EYES: Pupils equal, round and reactive to light, extraocular movements intact EARS, NOSE, THROAT: Moist mucous membranes. NECK: Normal range of motion, supple without lymphadenopathy, JVD, or masses. LUNGS: Breath sounds equal, clear to auscultation bilaterally. No wheezes, and no crackles. No accessory muscle use. HEART: Regular rate and rhythm, normal S1 and S2 without murmur, rub or gallop. ABDOMEN: Soft, nontender, not distended, normoactive bowel sounds, no guarding, no rebound, no masses. No hepatomegaly or splenomegaly. MUSCULOSKELETAL: Normal range of motion at all joints. No bony deformities or tenderness. No CVA tenderness. NEUROLOGICAL: Cranial nerves II-XII intact. PSYCHIATRIC: Cooperative. Good eye contact. Appropriate mood and affect. SKIN: Warm, dry, normal turgor, no rashes or lesions noted. Laboratory Results - last 24 hr 10/19/18 10/19/18 10/19/18 12:48 12:51 13:32 WBC 15.5 H RBC 4.86 Hgb 13.9 Hct 41.8 MCV 86.1 MCH 28.6 MCHC 33.2 RDW 14.2 Plt Count 325 MPV 9.0 Absolute Neuts (auto) 13.9 H Neutrophils % 89.8 H D Lymphocytes % 6.2 L D Monocytes % 3.8 Eosinophils % 0.0 D Basophils % 0.2 Nucleated RBC % 0 Platelet Comment No clumping noted VBG pH 7.38 POC VBG pCO2 38.4 POC VBG pO2 51.5 H D Mixed VBG HCO3 22.2 Sodium 129 L Potassium 4.6 Chloride 92 L Carbon Dioxide 19 L Anion Gap 18 H BUN 16 Creatinine 1.1 Creat Clearance w eGFR 56.52 POC Glucometer Random Glucose 473 H* Hemoglobin A1c % Lactic Acid Calcium 9.4 Phosphorus Magnesium Total Bilirubin 1.6 H AST 43 H ALT 29 Alkaline Phosphatase 122 H Total Protein 8.0 Albumin 4.1 Lipase 55 L Beta HCG, Quant 62382.9 Urine Color Urine Appearance Urine pH Ur Specific [place] Urine Protein Urine Glucose (UA) Urine Ketones Urine Blood Urine Nitrite Urine Bilirubin Urine Urobilinogen Ur Leukocyte Esterase Acetone, Qual 10/19/18 10/19/18 10/19/18 13:32 13:32 15:45 WBC RBC Hgb Hct MCV MCH MCHC RDW Plt Count MPV Absolute Neuts (auto) Neutrophils % Lymphocytes % Monocytes % Eosinophils % Basophils % Nucleated RBC % Platelet Comment VBG pH POC VBG pCO2 POC VBG pO2 Mixed VBG HCO3 Sodium Potassium Chloride Carbon Dioxide Anion Gap BUN Creatinine Creat Clearance w eGFR POC Glucometer Random Glucose Hemoglobin A1c % Lactic Acid 3.0 H* 4.4 H* Calcium Phosphorus Magnesium Total Bilirubin AST ALT Alkaline Phosphatase Total Protein Albumin Lipase Beta HCG, Quant Urine Color Urine Appearance Urine pH Ur Specific [place] Urine Protein Urine Glucose (UA) Urine Ketones Urine Blood Urine Nitrite Urine Bilirubin Urine Urobilinogen Ur Leukocyte Esterase Acetone, Qual Negative L 10/19/18 10/19/18 10/19/18 15:45 15:45 17:19 WBC RBC Hgb Hct MCV MCH MCHC RDW Plt Count MPV Absolute Neuts (auto) Neutrophils % Lymphocytes % Monocytes % Eosinophils % Basophils % Nucleated RBC % Platelet Comment VBG pH 7.26 L POC VBG pCO2 49.0 D POC VBG pO2 44.7 Mixed VBG HCO3 21.0 Sodium Cancelled 134 L Potassium Cancelled 3.5 Chloride Cancelled 98 Carbon Dioxide Cancelled 22 Anion Gap Cancelled 13 BUN Cancelled 16 Creatinine Cancelled 0.9 Creat Clearance w eGFR Cancelled > 60 POC Glucometer Random Glucose Cancelled 395 H* Hemoglobin A1c % Lactic Acid Calcium Cancelled 9.1 Phosphorus Magnesium Total Bilirubin AST ALT Alkaline Phosphatase Total Protein Albumin Lipase Beta HCG, Quant Urine Color Urine Appearance Urine pH Ur Specific [place] Urine Protein Urine Glucose (UA) Urine Ketones Urine Blood Urine Nitrite Urine Bilirubin Urine Urobilinogen Ur Leukocyte Esterase Acetone, Qual 10/19/18 10/19/18 10/19/18 18:54 19:21 20:03 WBC RBC Hgb Hct MCV MCH MCHC RDW Plt Count MPV Absolute Neuts (auto) Neutrophils % Lymphocytes % Monocytes % Eosinophils % Basophils % Nucleated RBC % Platelet Comment VBG pH POC VBG pCO2 POC VBG pO2 Mixed VBG HCO3 Sodium Potassium Chloride Carbon Dioxide Anion Gap BUN Creatinine Creat Clearance w eGFR POC Glucometer [phone] Random Glucose Hemoglobin A1c % Lactic Acid Calcium Phosphorus Magnesium Total Bilirubin AST ALT Alkaline Phosphatase Total Protein Albumin Lipase Beta HCG, Quant Urine Color L[place] Urine Appearance Clear Urine pH 5.0 Ur Specific [place] 1.038 H Urine Protein Negative Urine Glucose (UA) 3+ H D Urine Ketones 1+ H Urine Blood Negative Urine Nitrite Negative Urine Bilirubin Negative Urine Urobilinogen Negative Ur Leukocyte Esterase Negative Acetone, Qual 10/19/18 10/19/18 10/19/18 21:45 22:45 22:55 WBC RBC Hgb Hct MCV MCH MCHC RDW Plt Count MPV Absolute Neuts (auto) Neutrophils % Lymphocytes % Monocytes % Eosinophils % Basophils % Nucleated RBC % Platelet Comment VBG pH POC VBG pCO2 POC VBG pO2 Mixed VBG HCO3 Sodium 136 Potassium 3.9 Chloride 102 Carbon Dioxide 22 Anion Gap 12 BUN 14 Creatinine 0.8 Creat Clearance w eGFR > 60 POC Glucometer [phone] Random Glucose 202 H Hemoglobin A1c % Lactic Acid 4.1 H* Calcium 9.1 Phosphorus 3.0 Magnesium 2.3 Total Bilirubin AST ALT Alkaline Phosphatase Total Protein Albumin Lipase Beta HCG, Quant Urine Color Urine Appearance Urine pH Ur Specific [place] Urine Protein Urine Glucose (UA) Urine Ketones Urine Blood Urine Nitrite Urine Bilirubin Urine Urobilinogen Ur Leukocyte Esterase Acetone, Qual 10/20/18 10/20/18 10/20/18 00:13 01:13 03:25 WBC RBC Hgb Hct MCV MCH MCHC RDW Plt Count MPV Absolute Neuts (auto) Neutrophils % Lymphocytes % Monocytes % Eosinophils % Basophils % Nucleated RBC % Platelet Comment VBG pH POC VBG pCO2 POC VBG pO2 Mixed VBG HCO3 Sodium Potassium Chloride Carbon Dioxide Anion Gap BUN Creatinine Creat Clearance w eGFR POC Glucometer [phone] 179.80238 Random Glucose Hemoglobin A1c % Lactic Acid Calcium Phosphorus Magnesium Total Bilirubin AST ALT Alkaline Phosphatase Total Protein Albumin Lipase Beta HCG, Quant Urine Color Urine Appearance Urine pH Ur Specific [place] Urine Protein Urine Glucose (UA) Urine Ketones Urine Blood Urine Nitrite Urine Bilirubin Urine Urobilinogen Ur Leukocyte Esterase Acetone, Qual 10/20/18 10/20/18 10/20/18 04:58 05:30 05:30 WBC 15.0 H RBC 4.84 Hgb 13.8 Hct 41.8 MCV 86.4 MCH 28.6 MCHC 33.1 RDW 14.2 Plt Count 302 MPV 8.7 Absolute Neuts (auto) 11.6 H Neutrophils % 77.0 Lymphocytes % 13.4 D Monocytes % 8.8 D Eosinophils % 0.2 D Basophils % 0.6 Nucleated RBC % 0 Platelet Comment VBG pH POC VBG pCO2 POC VBG pO2 Mixed VBG HCO3 Sodium Potassium Chloride Carbon Dioxide Anion Gap BUN Creatinine Creat Clearance w eGFR POC Glucometer [phone] Random Glucose Hemoglobin A1c % 9.8 H Lactic Acid Calcium Phosphorus Magnesium Total Bilirubin AST ALT Alkaline Phosphatase Total Protein Albumin Lipase Beta HCG, Quant Urine Color Urine Appearance Urine pH Ur Specific [place] Urine Protein Urine Glucose (UA) Urine Ketones Urine Blood Urine Nitrite Urine Bilirubin Urine Urobilinogen Ur Leukocyte Esterase Acetone, Qual 10/20/18 10/20/18 10/20/18 05:30 05:30 06:13 WBC RBC Hgb Hct MCV MCH MCHC RDW Plt Count MPV Absolute Neuts (auto) Neutrophils % Lymphocytes % Monocytes % Eosinophils % Basophils % Nucleated RBC % Platelet Comment VBG pH POC VBG pCO2 POC VBG pO2 Mixed VBG HCO3 Sodium 137 Potassium 3.8 Chloride 103 Carbon Dioxide 24 Anion Gap 10 BUN 14 Creatinine 0.5 L Creat Clearance w eGFR > 60 POC Glucometer [phone] Random Glucose 173 H Hemoglobin A1c % Lactic Acid 1.0 Calcium 8.5 Phosphorus 3.0 Magnesium 2.0 Total Bilirubin 1.5 H AST 11 L ALT 22 Alkaline Phosphatase 109 Total Protein 7.2 Albumin 3.8 Lipase Beta HCG, Quant Urine Color Urine Appearance Urine pH Ur Specific [place] Urine Protein Urine Glucose (UA) Urine Ketones Urine Blood Urine Nitrite Urine Bilirubin Urine Urobilinogen Ur Leukocyte Esterase Acetone, Qual Active Medications Generic Name Dose Route Start Last Admin Trade Name Isaiasq PRN Reason Stop Dose Admin Chlorhexidine Gluconate 1 applic 10/19/18 22:00 10/19/18 23:57 Hibiclens For Decolonization - TP Not Given HS DREA Clonazepam 1 mg 10/19/18 22:00 10/19/18 22:31 Klonopin - PO 1 mg BID DREA Administration Heparin Sodium (Porcine) 5,000 unit 10/19/18 19:01 10/20/18 06:05 Heparin - SQ 5,000 unit TID DREA Administration Potassium Chloride/Sodium Chloride 20 meq in 1,000 mls @ 150 mls/hr 10/19/18 19:07 10/19/18 20:18 Ns+20 Meq Kcl - IV 150 mls/hr ASDIR DREA Administration Insulin Detemir 25 units 10/20/18 07:00 Levemir Vial SQ BID DREA Morphine Sulfate 2 mg 10/19/18 19:58 10/20/18 06:05 Morphine Sulfate IVPUSH 2 mg Q4H PRN Administration PAIN LEVEL 6-10 Mupirocin 1 applic 10/19/18 22:00 10/19/18 23:58 Bactroban Ointment (For Decolonization) - NS 10/24/18 21:59 1 applic BID DREA Administration Multivit/Folic Acid/Iron 1 tab 10/20/18 10:00 Vitamins (Sjr) - PO DAILY DREA Promethazine HCl 12.5 mg 10/19/18 20:04 10/20/18 06:07 Phenergan Suppository - PA 12.5 mg Q4H PRN Administration NAUSEA AND/OR VOMITING ASSESSMENT/PLAN: 33 year old woman with lengthy history of gastroparesis w/ J tube (removed 2017), IDDM, gastric myotomy, hypokalemia, approx 5 weeks presenting with nausea, vomiting (10x a day), palpitations. She reports that zofran, reglan and pepcid have increased her pain and vomiting in the past. She denies fever, chills, diarrhea, constipation, chest pain or SOB. Endo #DKA; resolved. -Insulin drip d/c'd -ISS ACHS -BGM Q4h -anion gap closed -needs outpatient followup ID Leukocytosis, likely reactive - Will trend - UA, Ucx pending OBGYN #hyperemesis gravidarum -Phenergan suppositories F/E/N - regular diet - NS w/ 20mEq K DVT ppx: SCDs Visit type - Emergency Visit Emergency Visit: Yes ED Registration Date: 10/19/18 Care time: The patient presented to the Emergency Department on the above date and was hospitalized for further evaluation of their emergent condition. - New Patient This patient is new to me today: Yes Date on this admission: 10/20/18 - Critical Care Critical Care patient: Yes Total Critical Care Time (in minutes): 40 Critical Care Statement: The care of this patient involved high complexity decision making to prevent further life threatening deterioration of the patient 's condition and/or to evaluate & treat vital organ system(s) failure or risk of failure.
--- NOTE | 2018-10-20 09:05 | CONSULT ---
Consult Consult Specialty:: Endocrinology Referred by:: Maddy Coronado Reason for Consultation:: DKA - History of Present Illness Chief Complaint: Nausea, vomiting History of Present Illness: This is a 33 year old female 5 weeks with h/o DM diagnosed in 2009 when she was admitted with DKA to [facility], on Insulin since then, gastroparesis s/p J-tube and removal, and anxiety presented to the ED with 2-3 days of billious vomiting, nausea, and abdominal cramps. She had very little PO intake and did not take her insulin. Denied MCGILL, fever, seizures, sob, congestion , hemoptysis, no diarrhea. In the ED, patient Pt was tachycardic at 118, mild HTN 145/98. Labs notable for glucose of 473, WBC 15.5, anion gap 18, lactic acid 4.4. She was given 2 L of fluid and placed on an insulin drip. Glucose went down to 320. Patient was transferred to the ICU and kept on Insulin drip with improvement in blood sugar and normalization on anion gap and CO2. Pt currently off Insulin drip and on IVF with K+. Pt stil nauseous and unable to tolerate food. - History Source History Provided By: Patient, Medical Record - Past Medical History Pulmonary: Yes: Asthma Gastrointestinal: Yes: Constipation, Other (Gastroparesis) ...LMP: 04/29/18 Endocrine: Yes: Diabetes Mellitus (DM I since age 6) - Past Surgical History Past Surgical History: Yes: Cholecystectomy (Laparoscopic) - Alcohol/Substance Use Hx Alcohol Use: No History of Substance Use: reports: Marijuana (states starting marijuana after her symptoms began in august) - Smoking History Smoking history: Current some day smoker Have you smoked in the past 12 months: Yes Aproximately how many cigarettes per day: 2 - Social History Usual Living Arrangement: Alone ADL: Independent Occupation: Unemployed: disabled History of Recent Travel: No Home Medications - Allergies Allergies/Adverse Reactions: Allergies Allergy/AdvReac Type Severity Reaction Status Date / Time shellfish derived Allergy Verified 07/10/18 12:58 famotidine [From Pepcid] AdvReac Verified 07/10/18 12:58 metoclopramide [From Reglan] AdvReac Verified 07/10/18 12:58 ondansetron AdvReac Verified 07/10/18 12:58 - Home Medications Home Medications: Ambulatory Orders Promethazine HCl [Phenergan Plain 6.25 MG/5 ML -] 5 ml PO TID 05/04/18 Clonazepam [Klonopin] 1 mg PO BID 06/11/18 Dronabinol [Marinol -] 5 mg PO ONCE PRN 06/11/18 Insulin Glargine,Hum.rec.anlog [Basaglar Kwikpen U-100] 25 unit SQ BID 06/11/18 Insulin Lispro [Admelog] 100 unit SQ ASDIR 06/11/18 Mirtazapine [Remeron -] 30 mg PO DAILY 06/11/18 Omeprazole 40 mg PO DAILY 06/11/18 Promethazine HCl [Phenergan -] 25 mg PO TID #21 tablet 07/10/18 Family Disease History - Family Disease History Family Disease History: Diabetes: Mother (Alive: ), Other: Father (Alive: DM, obesity), Mother, Brother (1 brother), Sister (1 sister), Son (3, 1 with eosinophilic esophagitis), Daughter (1, healthy) Review of Systems - Review of Systems Constitutional: reports: Loss of Appetite, Malaise Eyes: reports: No Symptoms HENT: reports: No Symptoms Neck: reports: No Symptoms Cardiovascular: reports: No Symptoms Respiratory: reports: No Symptoms Gastrointestinal: reports: Nausea, Vomiting Genitourinary: reports: No Symptoms Musculoskeletal: reports: No Symptoms Neurological: reports: No Symptoms Hematology/Lymphatic: reports: No Symptoms Physical Exam Vital Signs: Vital Signs Temperature 97.5 F L 10/20/18 02:00 Pulse Rate 95 H 10/20/18 06:00 Respiratory Rate 15 10/20/18 06:00 Blood Pressure 164/100 10/20/18 06:00 O2 Sat by Pulse Oximetry (%) 100 10/19/18 21:00 Constitutional: Yes: Mild Distress Eyes: Yes: Conjunctiva Clear, EOM Intact HENT: Yes: Atraumatic, Normocephalic Neck: Yes: Supple, Trachea Midline Cardiovascular: Yes: Regular Rate and Rhythm Respiratory: Yes: Regular, CTA Bilaterally Gastrointestinal: Yes: Normal Bowel Sounds, Soft Musculoskeletal: Yes: WNL Extremities: Yes: WNL Edema: No Neurological: Yes: Alert, Oriented Labs: CBC, BMP 10/20/18 05:30 10/20/18 05:30 Assessment/Plan AP: Uncontrolled DM with hyperglycemia Off Insulin drip Started on Levemir 10 BID Novolog SS coverage Q4hr BGM Q 4 hrs Restart Insulin drip with adjustment as necessary if blood sugar remains persistently >250 electrolyte replacement as necessary Discussed with ICU housestaff will F/U Nausea/Vomiting ?Gastroparesis GI evaluation
[2018-10-20] MEDS ORDERED: DEXTROSE 5%-0.45% SALINE 1,000 ML IV SCH (09:15)
[2018-10-20] MEDS ORDERED: MIRTAZAPINE 30 MG TABLET (FP) PO SCH (10:00)
[2018-10-20] MEDS ORDERED: PATIENT'S OWN MEDICATION (NON-FORMULARY) (Insulin Glargine,Hum.Rec.Anlog [Basaglar Kwikpen SQ SCH (10:00)
[2018-10-20] MEDS ORDERED: PANTOPRAZOLE 40 MG TABLET (FP) PO SCH (10:00)
--- NOTE | 2018-10-20 10:31 | PN ---
Physical Exam: SUBJECTIVE: Patient seen and examined at the bedside. still feels nauseous, tolerating sips of juice and spoonfuls of applesauce. OBJECTIVE: Vital Signs Period Temp Pulse Resp BP Sys/Powell Pulse Ox Last 24 Hr 97.5 F-98.9 F 88-124 12-18 145-167/92-103 98-100 GENERAL: The patient is awake, alert, and fully oriented, in no acute distress. HEAD: Normal with no signs of trauma. EYES: PERRL, extraocular movements intact, sclera anicteric, conjunctiva clear. No ptosis. ENT: Ears normal, nares patent, oropharynx clear without exudates, moist mucous membranes. NECK: Trachea midline, full range of motion, supple. LUNGS: Breath sounds equal, clear to auscultation bilaterally, no wheezes, no crackles, no accessory muscle use. HEART: Regular rate and rhythm ABDOMEN: Soft, nontender, nondistended, normoactive bowel sounds, no guarding, no rebound, no hepatosplenomegaly, no masses. EXTREMITIES: no edema. NEUROLOGICAL: Normal speech, gait not observed. PSYCH: Normal mood, normal affect. SKIN: Warm, dry, normal turgor, no rashes or lesions noted Laboratory Results - last 24 hr 10/19/18 10/19/18 10/19/18 12:48 12:51 13:32 WBC 15.5 H RBC 4.86 Hgb 13.9 Hct 41.8 MCV 86.1 MCH 28.6 MCHC 33.2 RDW 14.2 Plt Count 325 MPV 9.0 Absolute Neuts (auto) 13.9 H Neutrophils % 89.8 H D Lymphocytes % 6.2 L D Monocytes % 3.8 Eosinophils % 0.0 D Basophils % 0.2 Nucleated RBC % 0 Platelet Comment No clumping noted VBG pH 7.38 POC VBG pCO2 38.4 POC VBG pO2 51.5 H D Mixed VBG HCO3 22.2 Sodium 129 L Potassium 4.6 Chloride 92 L Carbon Dioxide 19 L Anion Gap 18 H BUN 16 Creatinine 1.1 Creat Clearance w eGFR 56.52 POC Glucometer Random Glucose 473 H* Hemoglobin A1c % Lactic Acid Calcium 9.4 Phosphorus Magnesium Total Bilirubin 1.6 H AST 43 H ALT 29 Alkaline Phosphatase 122 H Total Protein 8.0 Albumin 4.1 Lipase 55 L Beta HCG, Quant 96598.9 Urine Color Urine Appearance Urine pH Ur Specific Bern Urine Protein Urine Glucose (UA) Urine Ketones Urine Blood Urine Nitrite Urine Bilirubin Urine Urobilinogen Ur Leukocyte Esterase Acetone, Qual 10/19/18 10/19/18 10/19/18 13:32 13:32 15:45 WBC RBC Hgb Hct MCV MCH MCHC RDW Plt Count MPV Absolute Neuts (auto) Neutrophils % Lymphocytes % Monocytes % Eosinophils % Basophils % Nucleated RBC % Platelet Comment VBG pH POC VBG pCO2 POC VBG pO2 Mixed VBG HCO3 Sodium Potassium Chloride Carbon Dioxide Anion Gap BUN Creatinine Creat Clearance w eGFR POC Glucometer Random Glucose Hemoglobin A1c % Lactic Acid 3.0 H* 4.4 H* Calcium Phosphorus Magnesium Total Bilirubin AST ALT Alkaline Phosphatase Total Protein Albumin Lipase Beta HCG, Quant Urine Color Urine Appearance Urine pH Ur Specific Bern Urine Protein Urine Glucose (UA) Urine Ketones Urine Blood Urine Nitrite Urine Bilirubin Urine Urobilinogen Ur Leukocyte Esterase Acetone, Qual Negative L 10/19/18 10/19/18 10/19/18 15:45 15:45 17:19 WBC RBC Hgb Hct MCV MCH MCHC RDW Plt Count MPV Absolute Neuts (auto) Neutrophils % Lymphocytes % Monocytes % Eosinophils % Basophils % Nucleated RBC % Platelet Comment VBG pH 7.26 L POC VBG pCO2 49.0 D POC VBG pO2 44.7 Mixed VBG HCO3 21.0 Sodium Cancelled 134 L Potassium Cancelled 3.5 Chloride Cancelled 98 Carbon Dioxide Cancelled 22 Anion Gap Cancelled 13 BUN Cancelled 16 Creatinine Cancelled 0.9 Creat Clearance w eGFR Cancelled > 60 POC Glucometer Random Glucose Cancelled 395 H* Hemoglobin A1c % Lactic Acid Calcium Cancelled 9.1 Phosphorus Magnesium Total Bilirubin AST ALT Alkaline Phosphatase Total Protein Albumin Lipase Beta HCG, Quant Urine Color Urine Appearance Urine pH Ur Specific Bern Urine Protein Urine Glucose (UA) Urine Ketones Urine Blood Urine Nitrite Urine Bilirubin Urine Urobilinogen Ur Leukocyte Esterase Acetone, Qual 10/19/18 10/19/18 10/19/18 18:54 19:21 20:03 WBC RBC Hgb Hct MCV MCH MCHC RDW Plt Count MPV Absolute Neuts (auto) Neutrophils % Lymphocytes % Monocytes % Eosinophils % Basophils % Nucleated RBC % Platelet Comment VBG pH POC VBG pCO2 POC VBG pO2 Mixed VBG HCO3 Sodium Potassium Chloride Carbon Dioxide Anion Gap BUN Creatinine Creat Clearance w eGFR POC Glucometer [phone] Random Glucose Hemoglobin A1c % Lactic Acid Calcium Phosphorus Magnesium Total Bilirubin AST ALT Alkaline Phosphatase Total Protein Albumin Lipase Beta HCG, Quant Urine Color Ltyellow Urine Appearance Clear Urine pH 5.0 Ur Specific Bern 1.038 H Urine Protein Negative Urine Glucose (UA) 3+ H D Urine Ketones 1+ H Urine Blood Negative Urine Nitrite Negative Urine Bilirubin Negative Urine Urobilinogen Negative Ur Leukocyte Esterase Negative Acetone, Qual 10/19/18 10/19/18 10/19/18 21:45 22:45 22:55 WBC RBC Hgb Hct MCV MCH MCHC RDW Plt Count MPV Absolute Neuts (auto) Neutrophils % Lymphocytes % Monocytes % Eosinophils % Basophils % Nucleated RBC % Platelet Comment VBG pH POC VBG pCO2 POC VBG pO2 Mixed VBG HCO3 Sodium 136 Potassium 3.9 Chloride 102 Carbon Dioxide 22 Anion Gap 12 BUN 14 Creatinine 0.8 Creat Clearance w eGFR > 60 POC Glucometer [phone] Random Glucose 202 H Hemoglobin A1c % Lactic Acid 4.1 H* Calcium 9.1 Phosphorus 3.0 Magnesium 2.3 Total Bilirubin AST ALT Alkaline Phosphatase Total Protein Albumin Lipase Beta HCG, Quant Urine Color Urine Appearance Urine pH Ur Specific Bern Urine Protein Urine Glucose (UA) Urine Ketones Urine Blood Urine Nitrite Urine Bilirubin Urine Urobilinogen Ur Leukocyte Esterase Acetone, Qual 10/20/18 10/20/18 10/20/18 00:13 01:13 03:25 WBC RBC Hgb Hct MCV MCH MCHC RDW Plt Count MPV Absolute Neuts (auto) Neutrophils % Lymphocytes % Monocytes % Eosinophils % Basophils % Nucleated RBC % Platelet Comment VBG pH POC VBG pCO2 POC VBG pO2 Mixed VBG HCO3 Sodium Potassium Chloride Carbon Dioxide Anion Gap BUN Creatinine Creat Clearance w eGFR POC Glucometer [phone] [phone] Random Glucose Hemoglobin A1c % Lactic Acid Calcium Phosphorus Magnesium Total Bilirubin AST ALT Alkaline Phosphatase Total Protein Albumin Lipase Beta HCG, Quant Urine Color Urine Appearance Urine pH Ur Specific Bern Urine Protein Urine Glucose (UA) Urine Ketones Urine Blood Urine Nitrite Urine Bilirubin Urine Urobilinogen Ur Leukocyte Esterase Acetone, Qual 10/20/18 10/20/18 10/20/18 04:58 05:30 05:30 WBC 15.0 H RBC 4.84 Hgb 13.8 Hct 41.8 MCV 86.4 MCH 28.6 MCHC 33.1 RDW 14.2 Plt Count 302 MPV 8.7 Absolute Neuts (auto) 11.6 H Neutrophils % 77.0 Lymphocytes % 13.4 D Monocytes % 8.8 D Eosinophils % 0.2 D Basophils % 0.6 Nucleated RBC % 0 Platelet Comment VBG pH POC VBG pCO2 POC VBG pO2 Mixed VBG HCO3 Sodium Potassium Chloride Carbon Dioxide Anion Gap BUN Creatinine Creat Clearance w eGFR POC Glucometer [phone] Random Glucose Hemoglobin A1c % 9.8 H Lactic Acid Calcium Phosphorus Magnesium Total Bilirubin AST ALT Alkaline Phosphatase Total Protein Albumin Lipase Beta HCG, Quant Urine Color Urine Appearance Urine pH Ur Specific Bern Urine Protein Urine Glucose (UA) Urine Ketones Urine Blood Urine Nitrite Urine Bilirubin Urine Urobilinogen Ur Leukocyte Esterase Acetone, Qual 10/20/18 10/20/18 10/20/18 05:30 05:30 06:13 WBC RBC Hgb Hct MCV MCH MCHC RDW Plt Count MPV Absolute Neuts (auto) Neutrophils % Lymphocytes % Monocytes % Eosinophils % Basophils % Nucleated RBC % Platelet Comment VBG pH POC VBG pCO2 POC VBG pO2 Mixed VBG HCO3 Sodium 137 Potassium 3.8 Chloride 103 Carbon Dioxide 24 Anion Gap 10 BUN 14 Creatinine 0.5 L Creat Clearance w eGFR > 60 POC Glucometer [phone] Random Glucose 173 H Hemoglobin A1c % Lactic Acid 1.0 Calcium 8.5 Phosphorus 3.0 Magnesium 2.0 Total Bilirubin 1.5 H AST 11 L ALT 22 Alkaline Phosphatase 109 Total Protein 7.2 Albumin 3.8 Lipase Beta HCG, Quant Urine Color Urine Appearance Urine pH Ur Specific Bern Urine Protein Urine Glucose (UA) Urine Ketones Urine Blood Urine Nitrite Urine Bilirubin Urine Urobilinogen Ur Leukocyte Esterase Acetone, Qual Active Medications Generic Name Dose Route Start Last Admin Trade Name Freq PRN Reason Stop Dose Admin Chlorhexidine Gluconate 1 applic 10/19/18 22:00 10/19/18 23:57 Hibiclens For Decolonization - TP Not Given HS DREA Clonazepam 1 mg 10/19/18 22:00 10/19/18 22:31 Klonopin - PO 1 mg BID DREA Administration Heparin Sodium (Porcine) 5,000 unit 10/19/18 19:01 10/20/18 06:05 Heparin - SQ 5,000 unit TID DREA Administration Dextrose/Sodium Chloride 1,000 mls @ 100 mls/hr 10/20/18 09:15 D5-1/2ns - IV ASDIR [facility] Insulin Detemir 10 units 10/20/18 10:00 Levemir Vial SQ BID@0700,2200 [facility] Morphine Sulfate 2 mg 10/19/18 19:58 10/20/18 06:05 Morphine Sulfate IVPUSH 2 mg Q4H PRN Administration PAIN LEVEL 6-10 Mupirocin 1 applic 10/19/18 22:00 10/19/18 23:58 Bactroban Ointment (For Decolonization) - NS 10/24/18 21:59 1 applic BID DREA Administration Multivit/Folic Acid/Iron 1 tab 10/20/18 10:00 Vitamins (Sjr) - PO DAILY DREA Promethazine HCl 12.5 mg 10/19/18 20:04 10/20/18 06:07 Phenergan Suppository - NM 12.5 mg Q4H PRN Administration NAUSEA AND/OR VOMITING imaging: EKG regular rhythm, normal axis, normal intervals, no acute ST changes. sinus tachycardia. Transvaginal US: Single live uterine dating 5 weeks 6 days. HR 124. ASSESSMENT/PLAN: Patient is a 33 year old female who is 5 weeks . Her past medical history consists of diabetes, chronic gastroparesis s/p J-tube and removal, and anxiety. She presents to the ED with 2-3 days of billious vomiting, nausea, and abdominal cramps. Glucose was 473,Anion gap (18) lactic acid 4.4, VBG ph 7.26. Started on insulin drip and transferred to the ICU for closer monitoring Endocrine: Possible DKA/early DKA: Patient with multiple hospitalizations here for nausea/vomiting and dehydration. Glucose on presentation 473, anion gap 18, lactic acid 4.4, ph 7.26, bicarb 21, acetone negative. Patient given ivf and started on insulin drip. anion gap closed after bolus of fluids. Admitted to icu. Monitor bgms, bmp q4, endocrinology consulted and following. On Levemir, diabetic diet. on d5 1/2 ns Diabetes, type 1 anion gap closed. on novolog, levemir. diabetic diet. Sepsis elevated hr, wbc 15 today. blood and urine cultures pending Gastroparesis Mirazapine 30 mg PO qday for appetite stimulant Morphine 2 mg IVP q4h for pain RECORDS MANAGEMENT ANALYST: 1st trimester vitamins. discharging machine operator consulted and following [facility] d5 1/2 ns monitor electrolytes diabetic diet Visit type - Emergency Visit Emergency Visit: Yes ED Registration Date: 10/19/18 Care time: The patient presented to the Emergency Department on the above date and was hospitalized for further evaluation of their emergent condition. - New Patient This patient is new to me today: No - Critical Care Critical Care patient: Yes Total Critical Care Time (in minutes): 60 Critical Care Statement: The care of this patient involved high complexity decision making to prevent further life threatening deterioration of the patient 's condition and/or to evaluate & treat vital organ system(s) failure or risk of failure.
[2018-10-20] MEDS: clonazePAM 0.5 MG TABLET PO SCH ×2 (10:42→21:01)
[2018-10-20] MEDS: MUPIROCIN 2% TOPICAL OINTMENT FOR DECOLONIZATION NS SCH ×2 (10:43→21:05)
[2018-10-20] MEDS: INSULIN (LEVEMIR) 100 UNITS/ML UNITS SQ SCH ×2 (10:43→21:01)
[2018-10-20] MEDS ORDERED: INSULIN (NOVOLOG) ASPART 100 UNITS/ML 10ML VIAL SQ ONE ×3 (12:30→16:03)
--- NOTE | 2018-10-20 13:10 | CON.OBG ---
Consult Consult Specialty:: Obsterics Gynecology Reason for Consultation:: at 6 weeks in DKA. pt seen at bedside in ICU - History of Present Illness Chief Complaint: DKA and . Nausea and vomiting - History Source History Provided By: Patient - Past Medical History Pulmonary: Yes: Asthma Gastrointestinal: Yes: Constipation, Other (Gastroparesis) ...LMP: 04/29/18 ...: Yes Endocrine: Yes: Diabetes Mellitus (DM I since age 6) - Past Surgical History Past Surgical History: Yes: Cholecystectomy (Laparoscopic) - Alcohol/Substance Use Hx Alcohol Use: No History of Substance Use: reports: Marijuana (states starting marijuana after her symptoms began in august) - Smoking History Smoking history: Current some day smoker Have you smoked in the past 12 months: Yes Aproximately how many cigarettes per day: 2 - Social History Usual Living Arrangement: Alone ADL: Independent Occupation: Unemployed: disabled History of Recent Travel: No Home Medications - Allergies Allergies/Adverse Reactions: Allergies Allergy/AdvReac Type Severity Reaction Status Date / Time shellfish derived Allergy Verified 07/10/18 12:58 famotidine [From Pepcid] AdvReac Verified 07/10/18 12:58 metoclopramide [From Reglan] AdvReac Verified 07/10/18 12:58 ondansetron AdvReac Verified 07/10/18 12:58 - Home Medications Home Medications: Ambulatory Orders Promethazine HCl [Phenergan Plain 6.25 MG/5 ML -] 5 ml PO TID 05/04/18 Clonazepam [Klonopin] 1 mg PO BID 06/11/18 Dronabinol [Marinol -] 5 mg PO ONCE PRN 06/11/18 Insulin Glargine,Hum.rec.anlog [Basaglar Kwikpen U-100] 25 unit SQ BID 06/11/18 Insulin Lispro [Admelog] 100 unit SQ ASDIR 06/11/18 Mirtazapine [Remeron -] 30 mg PO DAILY 06/11/18 Omeprazole 40 mg PO DAILY 06/11/18 Promethazine HCl [Phenergan -] 25 mg PO TID #21 tablet 07/10/18 Family Disease History - Family Disease History Family Disease History: Other: Father (Alive: DM, obesity), Mother (Alive: ), Brother (1 brother), Sister (1 sister), Son (3, 1 with eosinophilic esophagitis) , Daughter (1, healthy) Review of Systems - Review of Systems Constitutional: reports: Loss of Appetite Eyes: reports: No Symptoms HENT: reports: No Symptoms Neck: reports: No Symptoms Cardiovascular: reports: No Symptoms Respiratory: reports: No Symptoms Gastrointestinal: reports: Nausea, Vomiting Genitourinary: reports: No Symptoms Breasts: reports: No Symptoms Reported Musculoskeletal: reports: No Symptoms Integumentary: reports: No Symptoms Neurological: reports: No Symptoms Endocrine: reports: No Symptoms Hematology/Lymphatic: reports: No Symptoms Psychiatric: reports: No Symptoms Physical Exam-COURT COLLECTIONS OFFICER Vital Signs: Vital Signs Temperature 97.5 F L 10/20/18 02:00 Pulse Rate 118 H 10/20/18 12:00 Respiratory Rate 20 10/20/18 12:00 Blood Pressure 106/65 10/20/18 12:00 O2 Sat by Pulse Oximetry (%) 100 10/19/18 21:00 Constitutional: Yes: Anxious, Mild Distress Neck: Yes: WNL Gastrointestinal: Yes: WNL, Soft ....Post : Yes: Uterus firm, Uterus non-tender Edema: No Labs: CBC, BMP 10/20/18 05:30 10/20/18 05:30 Problem List - Problems (1) Hyperemesis gravidarum Code(s): O21.0 - MILD HYPEREMESIS GRAVIDARUM Assessment/Plan DKA Hyperemesis gravidarum IUP at weeks type 1 DIabetes Plan reglan po prn Consider phenergan suppositories if reglan not working transfer to floor if controlled glucose
--- NOTE | 2018-10-20 14:09 | PN ---
Teaching Attending Note Name of Resident: Kera Vera ATTENDING PHYSICIAN STATEMENT I saw and evaluated the patient. I reviewed the resident's note and discussed the case with the resident. I agree with the resident's findings and plan as documented. SUBJECTIVE: Patient seen and examined in the ICU. Feels hungry. Off IV Insulin but the last BGM reads "too high". STAT BMP sent. Intake & Output 10/17/18 10/18/18 10/19/18 10/20/18 23:59 23:59 23:59 23:59 Intake Total 2412.9 Output Total 610 Balance 1802.9 Weight 135 lb 120 lb 9.6 oz Last Vital Signs Temp Pulse Resp BP Pulse Ox 97.5 F L 118 H 20 106/65 100 10/20/18 02:00 10/20/18 12:00 10/20/18 12:00 10/20/18 12:00 10/19/18 21:00 Active Medications Chlorhexidine Gluconate (Hibiclens For Decolonization -) 1 applic TP HS [facility] Last Admin: 10/19/18 23:57 Dose: Not Given Clonazepam (Klonopin -) 1 mg PO BID [facility] Last Admin: 10/20/18 10:42 Dose: 1 mg Heparin Sodium (Porcine) (Heparin -) 5,000 unit SQ TID [facility] Last Admin: 10/20/18 06:05 Dose: 5,000 unit Potassium Chloride/Sodium Chloride (Ns+20 Meq Kcl -) 20 meq in 1,000 mls @ 100 mls/hr IV ASDIR [facility] Insulin Detemir (Levemir Vial) 10 units SQ BID@0700,2200 [facility] Last Admin: 10/20/18 10:43 Dose: 10 units Morphine Sulfate (Morphine Sulfate) 2 mg IVPUSH Q4H PRN PRN Reason: PAIN LEVEL 6-10 Last Admin: 10/20/18 11:38 Dose: 2 mg Mupirocin (Bactroban Ointment (For Decolonization) -) 1 applic NS BID [facility] Stop: 10/24/18 21:59 Last Admin: 10/20/18 10:43 Dose: 1 applic Multivit/Folic Acid/Iron ( Vitamins (Sjr) -) 1 tab PO DAILY [facility] Promethazine HCl (Phenergan Suppository -) 12.5 mg MT Q4H PRN PRN Reason: NAUSEA AND/OR VOMITING Last Admin: 10/20/18 06:07 Dose: 12.5 mg GENERAL: Awake, alert, and fully oriented, in no acute distress. HEAD: Normal with no signs of trauma. EYES: Pupils equal, round and reactive to light, extraocular movements intact EARS, NOSE, THROAT: Moist mucous membranes. NECK: Normal range of motion, supple without lymphadenopathy, JVD, or masses. LUNGS: Breath sounds equal, clear to auscultation bilaterally. No wheezes, and no crackles. No accessory muscle use. HEART: Regular rate and rhythm, normal S1 and S2 without murmur, rub or gallop. ABDOMEN: Soft, nontender, not distended, normoactive bowel sounds, no guarding, no rebound, no masses. No hepatomegaly or splenomegaly. MUSCULOSKELETAL: Normal range of motion at all joints. No bony deformities or tenderness. No CVA tenderness. NEUROLOGICAL: Non-focal PSYCHIATRIC: Cooperative. Good eye contact. Appropriate mood and affect. SKIN: Warm, dry, normal turgor, no rashes or lesions noted. Laboratory Results - last 24 hr 10/19/18 10/19/18 10/19/18 12:48 12:51 13:32 WBC RBC Hgb Hct MCV MCH MCHC RDW Plt Count 325 MPV 9.0 Absolute Neuts (auto) Neutrophils % Lymphocytes % Monocytes % Eosinophils % Basophils % Nucleated RBC % Platelet Comment No clumping noted VBG pH POC VBG pCO2 POC VBG pO2 Mixed VBG HCO3 Sodium 129 L Potassium 4.6 Chloride 92 L Carbon Dioxide 19 L Anion Gap 18 H BUN 16 Creatinine 1.1 Creat Clearance w eGFR 56.52 POC Glucometer Random Glucose 473 H* Hemoglobin A1c % Lactic Acid 3.0 H* Calcium 9.4 Phosphorus Magnesium Total Bilirubin 1.6 H AST 43 H ALT 29 Alkaline Phosphatase 122 H Total Protein 8.0 Albumin 4.1 Lipase 55 L Beta HCG, Quant 71830.9 Urine Color Urine Appearance Urine pH Ur Specific Rebecca Urine Protein Urine Glucose (UA) Urine Ketones Urine Blood Urine Nitrite Urine Bilirubin Urine Urobilinogen Ur Leukocyte Esterase Acetone, Qual 10/19/18 10/19/18 10/19/18 13:32 15:45 15:45 WBC RBC Hgb Hct MCV MCH MCHC RDW Plt Count MPV Absolute Neuts (auto) Neutrophils % Lymphocytes % Monocytes % Eosinophils % Basophils % Nucleated RBC % Platelet Comment VBG pH 7.26 L POC VBG pCO2 49.0 D POC VBG pO2 44.7 Mixed VBG HCO3 21.0 Sodium Potassium Chloride Carbon Dioxide Anion Gap BUN Creatinine Creat Clearance w eGFR POC Glucometer Random Glucose Hemoglobin A1c % Lactic Acid 4.4 H* Calcium Phosphorus Magnesium Total Bilirubin AST ALT Alkaline Phosphatase Total Protein Albumin Lipase Beta HCG, Quant Urine Color Urine Appearance Urine pH Ur Specific Rebecca Urine Protein Urine Glucose (UA) Urine Ketones Urine Blood Urine Nitrite Urine Bilirubin Urine Urobilinogen Ur Leukocyte Esterase Acetone, Qual Negative L 10/19/18 10/19/18 10/19/18 15:45 17:19 18:54 WBC RBC Hgb Hct MCV MCH MCHC RDW Plt Count MPV Absolute Neuts (auto) Neutrophils % Lymphocytes % Monocytes % Eosinophils % Basophils % Nucleated RBC % Platelet Comment VBG pH POC VBG pCO2 POC VBG pO2 Mixed VBG HCO3 Sodium Cancelled 134 L Potassium Cancelled 3.5 Chloride Cancelled 98 Carbon Dioxide Cancelled 22 Anion Gap Cancelled 13 BUN Cancelled 16 Creatinine Cancelled 0.9 Creat Clearance w eGFR Cancelled > 60 POC Glucometer [phone] Random Glucose Cancelled 395 H* Hemoglobin A1c % Lactic Acid Calcium Cancelled 9.1 Phosphorus Magnesium Total Bilirubin AST ALT Alkaline Phosphatase Total Protein Albumin Lipase Beta HCG, Quant Urine Color Urine Appearance Urine pH Ur Specific Rebecca Urine Protein Urine Glucose (UA) Urine Ketones Urine Blood Urine Nitrite Urine Bilirubin Urine Urobilinogen Ur Leukocyte Esterase Acetone, Qual 10/19/18 10/19/18 10/19/18 19:21 20:03 21:45 WBC RBC Hgb Hct MCV MCH MCHC RDW Plt Count MPV Absolute Neuts (auto) Neutrophils % Lymphocytes % Monocytes % Eosinophils % Basophils % Nucleated RBC % Platelet Comment VBG pH POC VBG pCO2 POC VBG pO2 Mixed VBG HCO3 Sodium 136 Potassium 3.9 Chloride 102 Carbon Dioxide 22 Anion Gap 12 BUN 14 Creatinine 0.8 Creat Clearance w eGFR > 60 POC Glucometer [phone] Random Glucose 202 H Hemoglobin A1c % Lactic Acid Calcium 9.1 Phosphorus 3.0 Magnesium 2.3 Total Bilirubin AST ALT Alkaline Phosphatase Total Protein Albumin Lipase Beta HCG, Quant Urine Color Ltyellow Urine Appearance Clear Urine pH 5.0 Ur Specific Rebecca 1.038 H Urine Protein Negative Urine Glucose (UA) 3+ H D Urine Ketones 1+ H Urine Blood Negative Urine Nitrite Negative Urine Bilirubin Negative Urine Urobilinogen Negative Ur Leukocyte Esterase Negative Acetone, Qual 10/19/18 10/19/18 10/20/18 22:45 22:55 00:13 WBC RBC Hgb Hct MCV MCH MCHC RDW Plt Count MPV Absolute Neuts (auto) Neutrophils % Lymphocytes % Monocytes % Eosinophils % Basophils % Nucleated RBC % Platelet Comment VBG pH POC VBG pCO2 POC VBG pO2 Mixed VBG HCO3 Sodium Potassium Chloride Carbon Dioxide Anion Gap BUN Creatinine Creat Clearance w eGFR POC Glucometer [phone] Random Glucose Hemoglobin A1c % Lactic Acid 4.1 H* Calcium Phosphorus Magnesium Total Bilirubin AST ALT Alkaline Phosphatase Total Protein Albumin Lipase Beta HCG, Quant Urine Color Urine Appearance Urine pH Ur Specific Rebecca Urine Protein Urine Glucose (UA) Urine Ketones Urine Blood Urine Nitrite Urine Bilirubin Urine Urobilinogen Ur Leukocyte Esterase Acetone, Qual 10/20/18 10/20/18 10/20/18 01:13 03:25 04:58 WBC RBC Hgb Hct MCV MCH MCHC RDW Plt Count MPV Absolute Neuts (auto) Neutrophils % Lymphocytes % Monocytes % Eosinophils % Basophils % Nucleated RBC % Platelet Comment VBG pH POC VBG pCO2 POC VBG pO2 Mixed VBG HCO3 Sodium Potassium Chloride Carbon Dioxide Anion Gap BUN Creatinine Creat Clearance w eGFR POC Glucometer [phone] [phone] Random Glucose Hemoglobin A1c % Lactic Acid Calcium Phosphorus Magnesium Total Bilirubin AST ALT Alkaline Phosphatase Total Protein Albumin Lipase Beta HCG, Quant Urine Color Urine Appearance Urine pH Ur Specific Rebecca Urine Protein Urine Glucose (UA) Urine Ketones Urine Blood Urine Nitrite Urine Bilirubin Urine Urobilinogen Ur Leukocyte Esterase Acetone, Qual 10/20/18 10/20/18 10/20/18 05:30 05:30 05:30 WBC 15.0 H RBC 4.84 Hgb 13.8 Hct 41.8 MCV 86.4 MCH 28.6 MCHC 33.1 RDW 14.2 Plt Count 302 MPV 8.7 Absolute Neuts (auto) 11.6 H Neutrophils % 77.0 Lymphocytes % 13.4 D Monocytes % 8.8 D Eosinophils % 0.2 D Basophils % 0.6 Nucleated RBC % 0 Platelet Comment VBG pH POC VBG pCO2 POC VBG pO2 Mixed VBG HCO3 Sodium 137 Potassium 3.8 Chloride 103 Carbon Dioxide 24 Anion Gap 10 BUN 14 Creatinine 0.5 L Creat Clearance w eGFR > 60 POC Glucometer Random Glucose 173 H Hemoglobin A1c % 9.8 H Lactic Acid Calcium 8.5 Phosphorus 3.0 Magnesium 2.0 Total Bilirubin 1.5 H AST 11 L ALT 22 Alkaline Phosphatase 109 Total Protein 7.2 Albumin 3.8 Lipase Beta HCG, Quant Urine Color Urine Appearance Urine pH Ur Specific Rebecca Urine Protein Urine Glucose (UA) Urine Ketones Urine Blood Urine Nitrite Urine Bilirubin Urine Urobilinogen Ur Leukocyte Esterase Acetone, Qual 10/20/18 10/20/18 05:30 06:13 WBC RBC Hgb Hct MCV MCH MCHC RDW Plt Count MPV Absolute Neuts (auto) Neutrophils % Lymphocytes % Monocytes % Eosinophils % Basophils % Nucleated RBC % Platelet Comment VBG pH POC VBG pCO2 POC VBG pO2 Mixed VBG HCO3 Sodium Potassium Chloride Carbon Dioxide Anion Gap BUN Creatinine Creat Clearance w eGFR POC Glucometer [phone] Random Glucose Hemoglobin A1c % Lactic Acid 1.0 Calcium Phosphorus Magnesium Total Bilirubin AST ALT Alkaline Phosphatase Total Protein Albumin Lipase Beta HCG, Quant Urine Color Urine Appearance Urine pH Ur Specific Rebecca Urine Protein Urine Glucose (UA) Urine Ketones Urine Blood Urine Nitrite Urine Bilirubin Urine Urobilinogen Ur Leukocyte Esterase Acetone, Qual ASSESSMENT/PLAN: Resolving DKA History of gastroparesis w/ J tube (removed 05/2018) IDDM Gastric myotomy Approximately 5 weeks gestational Insulin coverage Follow BMP PO as tolerated Follow fever curve Can monitor on 3W if AG remains closed Further Insulin titration per Endocrine Dr Mendiola
[2018-10-20 14:31] LABS: ANION GAP 8 MMOL/L (8-16); BLOOD UREA NITROGEN 11 mg/dL (7-18); CALCIUM 8.6 mg/dL (8.5-10.1); CHLORIDE 100 mmol/L (98-107); CO2 24 mmol/L (21-32); CREATININE 0.8 mg/dL (0.55-1.3); POTASSIUM 4.2 mmol/L (3.5-5.1); SODIUM 132 mmol/L (136-145)
[2018-10-20 14:47] LABS: GLUCOSE,RANDOM 416 mg/dL (74-106)
[2018-10-20] MEDS: SODIUM CHLORIDE 0.9%/KCL 20 MEQ/1,000 ML INFUS.BAG IV SCH (15:04)
[2018-10-20] MEDS ORDERED: INSULIN SLIDING SCALE (NOVOLOG) 1 VIAL SQ SCH ×2 (16:30→18:00)
[2018-10-20] MEDS: PRENATAL VITAMINS W/ FOLIC ACID TABLET (FP) PO SCH (17:57)
[2018-10-20] MEDS: INSULIN SLIDING SCALE (NOVOLOG) 1 VIAL SQ SCH ×2 (18:47→21:02)
--- NOTE | 2018-10-20 18:55 | CON.GI ---
Consult Consult Specialty:: Gastroenterology ( covering Dr. Warner) Referred by:: LULY Alcaraz Reason for Consultation:: Gastroparesis - History of Present Illness Chief Complaint: N/V and unable to eat for the past week History of Present Illness: 33F is admitted with DKA in the setting of not having been able to eat for the past week. She last had DKA in 2009 when her DM was discovered. She tells me that she is 6 weeks with her 5th child. She tells me that she has lost 80 lbs within the past year elated to gastroparesis. She was evaluated at [facility] where she saw Dr Mauro Alberts and Dr. Neymar Thomas and where she failed to respond to trials of medications. Reglan causes severe pain and she is also intolerant of ondansetron. She cannot recall whether Domperidone was tried. She failed a trial of gabapentin and cannot afford Lyrica. She had some relief with medical marijuana and awaits to hear whether this is acceptable by her scheduling agent. She had a surgical J tube placed in April at [facility] which fell out before she received any feedings through it. The [facility] group referred her to [facility] where she underwent a laparoscopic gastric myotomy in 07/08 which has not alleviated her problems. She cannot recall whether or not Botox injections were done and why a gastric pacemaker was not undertaken. She also suffers with GERD and hiccups. - History Source History Provided By: Patient Limitations to Obtaining History: No Limitations - Past Medical History Pulmonary: Yes: Asthma Gastrointestinal: Yes: Constipation, GERD, Other (Gastroparesis) Hepatobiliary: Yes: Cholelithiasis (remoaved by simin berrios) ...LMP: 04/29/18 ...: Yes Endocrine: Yes: Diabetes Mellitus (DM I since age 6) - Past Surgical History Past Surgical History: Yes: Breast Biopsy (fibroadenomas removed bilaterally), Cholecystectomy (Laparoscopic) Additional Surgical History: Surgical J tube 05/08 [facility]. 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 Place of : [place] History of Recent Travel: No Home Medications - Allergies Allergies/Adverse Reactions: Allergies Allergy/AdvReac Type Severity Reaction Status Date / Time shellfish derived Allergy Verified 07/10/18 12:58 famotidine [From Pepcid] AdvReac Verified 07/10/18 12:58 metoclopramide [From Reglan] AdvReac Verified 07/10/18 12:58 ondansetron AdvReac Verified 07/10/18 12:58 - Home Medications Home Medications: Ambulatory Orders Promethazine HCl [Phenergan Plain 6.25 MG/5 ML -] 5 ml PO TID 05/04/18 Clonazepam [Klonopin] 1 mg PO BID 06/11/18 Dronabinol [Marinol -] 5 mg PO ONCE PRN 06/11/18 Insulin Glargine,Hum.rec.anlog [Basaglar Kwikpen U-100] 25 unit SQ BID 06/11/18 Insulin Lispro [Admelog] 100 unit SQ ASDIR 06/11/18 Mirtazapine [Remeron -] 30 mg PO DAILY 06/11/18 Omeprazole 40 mg PO DAILY 06/11/18 Promethazine HCl [Phenergan -] 25 mg PO TID #21 tablet 07/10/18 Family Disease History - Family Disease History Family Disease History: Diabetes: Mother (Alive: ), Other: Father (Alive: DM, obesity), Mother, Brother (1 brother), Sister (1 sister), Son (3, 1 with eosinophilic esophagitis), Daughter (1, healthy) Review of Systems - Review of Systems Constitutional: reports: Unintentional Wgt. Loss, Weakness Eyes: reports: No Symptoms HENT: reports: No Symptoms Cardiovascular: reports: No Symptoms Gastrointestinal: reports: Constipation, Nausea, Vomiting Musculoskeletal: reports: No Symptoms Physical Exam-GI Vital Signs: Vital Signs Temperature 97.5 F L 10/20/18 02:00 Pulse Rate 112 H 10/20/18 14:00 Respiratory Rate 20 10/20/18 14:00 Blood Pressure 99/60 10/20/18 14:00 O2 Sat by Pulse Oximetry (%) 100 10/20/18 09:00 CBC,CMP WBC 15.0 K/mm3 (4.0-10.0) H 10/20/18 05:30 RBC 4.84 M/mm3 (3.60-5.2) 10/20/18 05:30 Hgb 13.8 GM/dL (10.7-15.3) 10/20/18 05:30 Hct 41.8 % (32.4-45.2) 10/20/18 05:30 MCV 86.4 fl (80-96) 10/20/18 05:30 MCH 28.6 pg (25.7-33.7) 10/20/18 05:30 MCHC 33.1 g/dl (32.0-36.0) 10/20/18 05:30 RDW 14.2 % (11.6-15.6) 10/20/18 05:30 Plt Count 302 K/MM3 (134-434) 10/20/18 05:30 MPV 8.7 fl (7.5-11.1) 10/20/18 05:30 Absolute Neuts (auto) 11.6 K/mm3 (1.5-8.0) H 10/20/18 05:30 Neutrophils % 77.0 % (42.8-82.8) 10/20/18 05:30 Lymphocytes % 13.4 % (8-40) D 10/20/18 05:30 Monocytes % 8.8 % (3.8-10.2) D 10/20/18 05:30 Eosinophils % 0.2 % (0-4.5) D 10/20/18 05:30 Basophils % 0.6 % (0-2.0) 10/20/18 05:30 Nucleated RBC % 0 % (0-0) 10/20/18 05:30 Platelet Comment No clumping noted 10/19/18 12:48 Sodium 132 mmol/L (136-145) L 10/20/18 13:33 Potassium 4.2 mmol/L (3.5-5.1) 10/20/18 13:33 Chloride 100 mmol/L (98-107) 10/20/18 13:33 Carbon Dioxide 24 mmol/L (21-32) 10/20/18 13:33 Anion Gap 8 MMOL/L (8-16) 10/20/18 13:33 BUN 11 mg/dL (7-18) 10/20/18 13:33 Creatinine 0.8 mg/dL (0.55-1.3) 10/20/18 13:33 Creat Clearance w eGFR > 60 (>60) 10/20/18 13:33 POC Glucometer 188.25001 UNITS (80-120) 10/20/18 06:13 Random Glucose 416 mg/dL (74-106) H* 10/20/18 13:33 Hemoglobin A1c % 9.8 % (4.2-6.3) H 10/20/18 05:30 Lactic Acid 1.0 mmol/L (0.4-2.0) 10/20/18 05:30 Calcium 8.6 mg/dL (8.5-10.1) 10/20/18 13:33 Phosphorus 3.0 mg/dL (2.5-4.9) 10/20/18 05:30 Magnesium 2.0 mg/dL (1.8-2.4) 10/20/18 05:30 Total Bilirubin 1.5 mg/dL (0.2-1) H 10/20/18 05:30 AST 11 U/L (15-37) L 10/20/18 05:30 ALT 22 U/L (13-61) 10/20/18 05:30 Alkaline Phosphatase 109 U/L (45-117) 10/20/18 05:30 Total Protein 7.2 g/dl (6.4-8.2) 10/20/18 05:30 Albumin 3.8 g/dl (3.4-5.0) 10/20/18 05:30 Lipase 55 U/L (73-393) L 10/19/18 12:51 Beta HCG, Quant 18816.9 mIU/ml 10/19/18 12:51 Current Medications Generic Name Dose Route Start Last Admin Trade Name Freq PRN Reason Stop Dose Admin Chlorhexidine Gluconate 1 applic 10/19/18 22:00 10/19/18 23:57 Hibiclens For Decolonization - TP Not Given HS DREA Clonazepam 1 mg 10/19/18 22:00 10/20/18 10:42 Klonopin - PO 1 mg BID DREA Administration Heparin Sodium (Porcine) 5,000 unit 10/19/18 19:01 10/20/18 13:00 Heparin - SQ 5,000 unit TID DREA Administration Potassium Chloride/Sodium Chloride 20 meq in 1,000 mls @ 100 mls/hr 10/20/18 14:00 10/20/18 15:04 Ns+20 Meq Kcl - IV 10/21/18 23:59 100 mls/hr ASDIR DREA Administration Insulin Aspart 1 vial 10/20/18 18:00 10/20/18 18:47 Novolog Vial Sliding Scale - SQ Not Given Q4HPO [facility] Protocol Insulin Detemir 10 units 10/20/18 10:00 10/20/18 10:43 Levemir Vial SQ 10 units BID@0700,2200 DREA Administration Morphine Sulfate 2 mg 10/19/18 19:58 10/20/18 16:17 Morphine Sulfate IVPUSH 2 mg Q4H PRN Administration PAIN LEVEL 6-10 Mupirocin 1 applic 10/19/18 22:00 10/20/18 10:43 Bactroban Ointment (For Decolonization) - NS 10/24/18 21:59 1 applic BID DREA Administration Multivit/Folic Acid/Iron 1 tab 10/20/18 10:00 10/20/18 17:57 Vitamins (Sjr) - PO 1 tab DAILY DREA Administration Promethazine HCl 12.5 mg 10/19/18 20:04 10/20/18 06:07 Phenergan Suppository - RI 12.5 mg Q4H PRN Administration NAUSEA AND/OR VOMITING Constitutional: Yes: Anxious Eyes: Yes: Conjunctiva Clear HENT: Yes: Atraumatic Neck: Yes: Supple Cardiovascular: Yes: Regular Rate and Rhythm Respiratory: Yes: CTA Bilaterally Gastrointestinal Inspection: Yes: Scars (healed laparoscopic incisions) ...Auscultate: Yes: Hypoactive Bowel Sounds ...Palpate: Yes: Soft, Other (nontender) ...Rectal Exam: Yes: Deferred Labs: CBC, BMP 10/20/18 05:30 10/20/18 13:33 Problem List - Problems (1) Diabetic gastroparesis Assessment/Plan: Chronic refractory gastroparesis with perhaps a component of hyperemesis gravidarum. She tells me that Reglan has failed on multiple occasions and causes abdominal pain. If scheduling agent has no objections to marijuana this may be tried as she acknowledges some success with this agent and I have no clear cut safe options. Domperidone is not FDA approved in the [place] and will therefore not be covered by health care plans. Her precludes a gastric pacemaker insertion at this time. I will start Miralax on the chance that her constipation may be playing a role. Code(s): E11.43 - TYPE 2 DIABETES W DIABETIC AUTONOMIC (POLY)NEUROPATHY; K31.84 - GASTROPARESIS (2) DKA (diabetic ketoacidoses) Code(s): E13.10 - OTH DIABETES MELLITUS WITH KETOACIDOSIS WITHOUT COMA (3) Hyperemesis gravidarum Code(s): O21.0 - MILD HYPEREMESIS GRAVIDARUM (4) Constipation Code(s): K59.00 - CONSTIPATION, UNSPECIFIED Assessment/Plan Consider marinol if okayed by ob Miralax for constipation Dr Bui will be covering this weekend.
[2018-10-20] MEDS ORDERED: morphine SULFATE 4 MG/ML VIAL IVPUSH ONE (21:00)
[2018-10-20] MEDS ORDERED: MAG HYDROX/AL HYDROX/SIMETH 30 ML UNIT-DOSE CUP PO ONE (21:00)
[2018-10-20] MEDS: CHLORHEXIDINE GLUCONATE 4% CLEANSER FOR DECOLONIZATION TP SCH (22:43)
[2018-10-21] MEDS ORDERED: INSULIN (NOVOLOG) ASPART 100 UNITS/ML 10ML VIAL ONE (01:36)
[2018-10-21] MEDS: PROMETHAZINE HCL 12.5 MG SUPPOSITORY PR PRN (01:47)
[2018-10-21] MEDS: MORPHINE SULFATE 2 MG/ML VIAL IVPUSH PRN ×3 (01:47→19:03)
[2018-10-21] MEDS: INSULIN SLIDING SCALE (NOVOLOG) 1 VIAL SQ SCH ×6 (03:00→22:51)
[2018-10-21 06:05] LABS: BASO % 0.5 % (0-2.0); EOS % 0.7 % (0-4.5); HEMATOCRIT 33.9 % (32.4-45.2); HEMOGLOBIN 11.3 GM/dL (10.7-15.3); LYMPH % 24.9 % (8-40); MCHC 33.4 g/dl (32.0-36.0); MEAN CELL VOLUME 86.9 fl (80-96); MEAN PLT VOLUME 8.8 fl (7.5-11.1); MONO % 8.5 % (3.8-10.2); NEUT % 65.4 % (42.8-82.8); PLATELET COUNT 267 K/MM3 (134-434); RDW 13.9 % (11.6-15.6); WHITE BLOOD COUNT 8.4 K/mm3 (4.0-10.0)
[2018-10-21 06:47] LABS: ALBUMIN 2.9 g/dl (3.4-5.0); ALK PHOS 79 U/L (45-117); ANION GAP 9 MMOL/L (8-16); BILIRUBIN,TOTAL 0.5 mg/dL (0.2-1); BLOOD UREA NITROGEN 7 mg/dL (7-18); CALCIUM 7.8 mg/dL (8.5-10.1); CHLORIDE 100 mmol/L (98-107); CO2 24 mmol/L (21-32); CREATININE 0.6 mg/dL (0.55-1.3); MAGNESIUM 1.8 mg/dL (1.8-2.4); PHOSPHOROUS 2.4 mg/dL (2.5-4.9); SGOT/AST 9 U/L (15-37); SGPT/ALT 18 U/L (13-61); SODIUM 132 mmol/L (136-145); TOT PROT 5.6 g/dl (6.4-8.2)
[2018-10-21] MEDS: HEPARIN NA (PORCINE) 5,000 UNITS/ML 1ML VIAL SQ SCH ×3 (06:53→22:50)
[2018-10-21] MEDS: INSULIN (LEVEMIR) 100 UNITS/ML UNITS SQ SCH ×2 (07:00→22:50)
[2018-10-21 07:03] LABS: GLUCOSE,RANDOM 314 mg/dL (74-106)
[2018-10-21] MEDS: clonazePAM 0.5 MG TABLET PO SCH ×2 (09:45→22:50)
[2018-10-21] MEDS: PANTOPRAZOLE 40 MG TABLET (FP) PO SCH (09:45)
[2018-10-21] MEDS: MUPIROCIN 2% TOPICAL OINTMENT FOR DECOLONIZATION NS SCH (09:45)
[2018-10-21] MEDS: POLYETHYLENE GLYCOL 3350 119 GM BTL PO SCH (10:02)
--- NOTE | 2018-10-21 11:39 | PN ---
Progress Note (SOAP) - Subjective Chief Complaint: Pt seen in ICU at 9am this morn feeling fatique and tired. Still vomiting not controlled with IV phenergan but not taking Q 4 - Current Medications Current Medications: Active Medications Chlorhexidine Gluconate (Hibiclens For Decolonization -) 1 applic TP HS [facility] Last Admin: 10/20/18 22:43 Dose: 1 applic Clonazepam (Klonopin -) 1 mg PO BID [facility] Last Admin: 10/21/18 09:45 Dose: 1 mg Heparin Sodium (Porcine) (Heparin -) 5,000 unit SQ TID [facility] Last Admin: 10/21/18 06:53 Dose: 5,000 unit Potassium Chloride/Sodium Chloride (Ns+20 Meq Kcl -) 20 meq in 1,000 mls @ 100 mls/hr IV ASDIR [facility] Stop: 10/21/18 23:59 Last Admin: 10/20/18 15:04 Dose: 100 mls/hr Insulin Aspart (Novolog Vial Sliding Scale -) 1 vial SQ Q4HPO [facility]; Protocol Last Admin: 10/21/18 10:02 Dose: Not Given Insulin Detemir (Levemir Vial) 10 units SQ BID@0700,2200 [facility] Last Admin: 10/20/18 21:01 Dose: 10 units Morphine Sulfate (Morphine Sulfate) 2 mg IVPUSH Q4H PRN PRN Reason: PAIN LEVEL 6-10 Last Admin: 10/21/18 09:50 Dose: 2 mg Mupirocin (Bactroban Ointment (For Decolonization) -) 1 applic NS BID [facility] Stop: 10/24/18 21:59 Last Admin: 10/21/18 09:45 Dose: 1 applic Pantoprazole Sodium (Protonix -) 40 mg PO DAILY [facility] Last Admin: 10/21/18 09:45 Dose: 40 mg Polyethylene Glycol (Miralax (For Daily Use) -) 17 gm PO DAILY [facility] Last Admin: 10/21/18 10:02 Dose: Not Given Multivit/Folic Acid/Iron ( Vitamins (Sjr) -) 1 tab PO DAILY [facility] Last Admin: 10/20/18 17:57 Dose: 1 tab Promethazine HCl (Phenergan Suppository -) 12.5 mg CO Q4H PRN PRN Reason: NAUSEA AND/OR VOMITING Last Admin: 10/21/18 01:47 Dose: 12.5 mg - Objective Vital Signs: Vital Signs Temperature 98.5 F 10/21/18 08:00 Pulse Rate 81 10/21/18 10:00 Respiratory Rate 16 10/21/18 10:00 Blood Pressure 160/100 10/21/18 10:00 O2 Sat by Pulse Oximetry (%) 99 10/21/18 09:00 Labs Lab Results: CBC, BMP 10/21/18 05:30 10/21/18 05:30 Problem List - Problems (1) Hyperemesis gravidarum Code(s): O21.0 - MILD HYPEREMESIS GRAVIDARUM (2) Gastroparesis due to DM Code(s): E11.43 - TYPE 2 DIABETES W DIABETIC AUTONOMIC (POLY)NEUROPATHY; K31.84 - GASTROPARESIS (3) Diabetic gastroparesis Code(s): E11.43 - TYPE 2 DIABETES W DIABETIC AUTONOMIC (POLY)NEUROPATHY; K31.84 - GASTROPARESIS (4) Gastroparesis Code(s): K31.84 - GASTROPARESIS (5) Vomiting Code(s): R11.10 - VOMITING, UNSPECIFIED Assessment/Plan Hyperemesis vs gastroparesis causing vomiting and nausea Vomiting DKA on drip glucose in 200s IUP at 6 weeks Plan Consult [facility] high risk - only in [facility] on IV phenergan Q 4 hours TPN COnsider medical marijuana although- ACOG does not approve during because of longterm effects are unknown consider Botox into pyloric sphincter
[2018-10-21] MEDS: SODIUM CHLORIDE 0.9%/KCL 20 MEQ/1,000 ML INFUS.BAG IV SCH ×3 (12:00→21:00)
[2018-10-21] MEDS: PRENATAL VITAMINS W/ FOLIC ACID TABLET (FP) PO SCH (12:40)
[2018-10-21] MEDS: PROMETHAZINE HCL 25 MG/1 ML VIAL IVPB SCH ×3 (12:42→22:48)
--- NOTE | 2018-10-21 16:28 | PN ---
Physical Exam: SUBJECTIVE: Patient seen and examined at the bedside. sleepy, states she continues to feel nausea and is having poor appetite. OBJECTIVE: Vital Signs Period Temp Pulse Resp BP Sys/Powell Pulse Ox Last 24 Hr 98.4 F-98.5 F 79-97 15-18 103-169/72-100 99-100 GENERAL: The patient is awake, and fully oriented, in no acute distress. HEAD: Normal with no signs of trauma. EYES: PERRL, extraocular movements intact, sclera anicteric, conjunctiva clear. No ptosis. ENT: Ears normal, nares patent, oropharynx clear without exudates, moist mucous membranes. NECK: Trachea midline, full range of motion, supple. LUNGS: Breath sounds equal, clear to auscultation bilaterally, no wheezes, no crackles, no accessory muscle use. HEART: Regular rate and rhythm ABDOMEN: Soft, nontender, nondistended, normoactive bowel sounds, no guarding, no rebound, no hepatosplenomegaly, no masses. EXTREMITIES: no edema. NEUROLOGICAL: Normal speech, gait not observed. PSYCH: Normal mood, normal affect. SKIN: Warm, dry, normal turgor, no rashes or lesions noted Laboratory Results - last 24 hr 10/20/18 10/20/18 10/20/18 12:36 13:41 14:38 WBC RBC Hgb Hct MCV MCH MCHC RDW Plt Count MPV Absolute Neuts (auto) Neutrophils % Lymphocytes % Monocytes % Eosinophils % Basophils % Nucleated RBC % Sodium Potassium Chloride Carbon Dioxide Anion Gap BUN Creatinine Creat Clearance w eGFR POC Glucometer > 400 > [phone] Random Glucose Calcium Phosphorus Magnesium Total Bilirubin AST ALT Alkaline Phosphatase Total Protein Albumin 10/20/18 10/20/18 10/20/18 17:20 18:40 20:41 WBC RBC Hgb Hct MCV MCH MCHC RDW Plt Count MPV Absolute Neuts (auto) Neutrophils % Lymphocytes % Monocytes % Eosinophils % Basophils % Nucleated RBC % Sodium Potassium Chloride Carbon Dioxide Anion Gap BUN Creatinine Creat Clearance w eGFR POC Glucometer 194.45043 172.30235 229.47450 Random Glucose Calcium Phosphorus Magnesium Total Bilirubin AST ALT Alkaline Phosphatase Total Protein Albumin 10/21/18 10/21/18 10/21/18 05:30 05:30 05:58 WBC 8.4 RBC 3.90 Hgb 11.3 Hct 33.9 D MCV 86.9 MCH 29.0 MCHC 33.4 RDW 13.9 Plt Count 267 MPV 8.8 Absolute Neuts (auto) 5.5 Neutrophils % 65.4 Lymphocytes % 24.9 D Monocytes % 8.5 Eosinophils % 0.7 D Basophils % 0.5 Nucleated RBC % 0 Sodium 132 L Potassium 4.0 Chloride 100 Carbon Dioxide 24 Anion Gap 9 BUN 7 Creatinine 0.6 Creat Clearance w eGFR > 60 POC Glucometer 304 Random Glucose 314 H* Calcium 7.8 L Phosphorus 2.4 L Magnesium 1.8 Total Bilirubin 0.5 AST 9 L ALT 18 Alkaline Phosphatase 79 Total Protein 5.6 L Albumin 2.9 L 10/21/18 10:01 WBC RBC Hgb Hct MCV MCH MCHC RDW Plt Count MPV Absolute Neuts (auto) Neutrophils % Lymphocytes % Monocytes % Eosinophils % Basophils % Nucleated RBC % Sodium Potassium Chloride Carbon Dioxide Anion Gap BUN Creatinine Creat Clearance w eGFR POC Glucometer [phone] Random Glucose Calcium Phosphorus Magnesium Total Bilirubin AST ALT Alkaline Phosphatase Total Protein Albumin Active Medications Generic Name Dose Route Start Last Admin Trade Name Freq PRN Reason Stop Dose Admin Chlorhexidine Gluconate 1 applic 10/19/18 22:00 10/20/18 22:43 Hibiclens For Decolonization - TP 1 applic HS DREA Administration Clonazepam 1 mg 10/19/18 22:00 10/21/18 09:45 Klonopin - PO 1 mg BID DREA Administration Heparin Sodium (Porcine) 5,000 unit 10/19/18 19:01 10/21/18 13:59 Heparin - SQ 5,000 unit TID DREA Administration Potassium Chloride/Sodium Chloride 20 meq in 1,000 mls @ 100 mls/hr 10/20/18 14:00 10/21/18 14:00 Ns+20 Meq Kcl - IV 10/21/18 23:59 Not Given ASDIR DREA Insulin Aspart 1 vial 10/20/18 18:00 10/21/18 14:07 Novolog Vial Sliding Scale - SQ 5 unit Q4HPO DREA Administration Protocol Insulin Detemir 10 units 10/20/18 10:00 10/21/18 07:00 Levemir Vial SQ Not Given BID@0700,2200 DREA Morphine Sulfate 2 mg 10/19/18 19:58 10/21/18 09:50 Morphine Sulfate IVPUSH 2 mg Q4H PRN Administration PAIN LEVEL 6-10 Mupirocin 1 applic 10/19/18 22:00 10/21/18 09:45 Bactroban Ointment (For Decolonization) - NS 10/24/18 21:59 1 applic BID DREA Administration Pantoprazole Sodium 40 mg 10/21/18 10:00 10/21/18 09:45 Protonix - PO 40 mg DAILY DREA Administration Polyethylene Glycol 17 gm 10/21/18 10:00 10/21/18 10:02 Miralax (For Daily Use) - PO Not Given DAILY DREA Multivit/Folic Acid/Iron 1 tab 10/20/18 10:00 10/21/18 12:40 Vitamins (Sjr) - PO 1 tab DAILY DREA Administration Promethazine HCl 12.5 mg 10/19/18 20:04 10/21/18 01:47 Phenergan Suppository - MI 12.5 mg Q4H PRN Administration NAUSEA AND/OR VOMITING Promethazine HCl 12.5 mg 10/21/18 12:15 10/21/18 12:42 Phenergan Injection - IVPB 12.5 mg Q6H-IV DREA Administration imaging: EKG regular rhythm, normal axis, normal intervals, no acute ST changes. sinus tachycardia. Transvaginal US: Single live uterine dating 5 weeks 6 days. HR 124. ASSESSMENT/PLAN: Patient is a 33 year old female who is 5 weeks . Her past medical history consists of diabetes, chronic gastroparesis s/p J-tube and removal at [facility]. At [facility], j tube fell out and [facility] referred her to [facility] where she underwent a laparoscopic gastric myotomy on June 2018. 07/08. She presents to the ED with 2-3 days of billious vomiting, nausea, and abdominal cramps. Glucose was 473,Anion gap (18) lactic acid 4.4, VBG ph 7.26. Started on insulin drip and transferred to the ICU for closer monitoring and a insulin drip initiated. Endocrine: Possible DKA/early DKA: Glucose on presentation 473, anion gap 18, lactic acid 4.4, ph 7.26, bicarb 21, acetone negative. Patient given ivf and started on insulin drip. anion gap closed after bolus of fluids. Admitted to icu. Monitor bgms, bmp q4, endocrinology consulted and following. On Levemir, diabetic diet. on IVF hydration with K. Diabetes, type 1 anion gap closed. on novolog, levemir. diabetic diet. Sepsis, rule out elevated hr and leukocytosis on admssion. now resolved. blood cultures negative. urine culture to be repeated. WBC within normal limits. no fevers. blood and urine cultures pending Gastroparesis, persistent nausea Morphine 2 mg IVP q4h for abdominal pain On scheduled prometazine hlc 12.5 q6 scheduled. On Phenergan suppository q 4 prn. Patient with multiple hospitalizations here for nausea/vomiting and dehydration. she is s/p j tube and had a recent laparoscopic gastric myotomy on June 2018. RADIOLOGY SPECIAL PROCEDURE TECH: Early 1st trimester . per ultrasound 10/19: single live fetus apx 5 weeks 5 days. being followed by RADIOLOGY SPECIAL PROCEDURE TECH. Recommendations noted and appreciated. vitamins daily. fen NS with 20meq @ 75/cchr monitor electrolytes. monitor electrolytes diabetic diet prophy heparin full code Visit type - Emergency Visit Emergency Visit: Yes ED Registration Date: 10/19/18 Care time: The patient presented to the Emergency Department on the above date and was hospitalized for further evaluation of their emergent condition. - New Patient This patient is new to me today: No - Critical Care Critical Care patient: No - Discharge Referral Referred to [facility] Med P.C.: No
--- NOTE | 2018-10-21 17:23 | PN ---
Progress Note (short form) - Note Progress Note: Feels better Less nausea Tolerates toast for breakfast but didn't eat lunch Fluctuating blood sugar Vital Signs Period Temp Pulse Resp BP Sys/Powell Pulse Ox Last 24 Hr 98.4 F-98.5 F 79-97 - 103-169/72-100 99-100 PE: AOx3 Neck: Supple, No JVD HEENT: EOMI Lungs: CTA CVS: S1S2 Abd: Benign Ext: No edema Neuro: No focal deficit CMP Sodium 132 mmol/L (136-145) L 10/21/18 05:30 Potassium 4.0 mmol/L (3.5-5.1) 10/21/18 05:30 Chloride 100 mmol/L (98-107) 10/21/18 05:30 Carbon Dioxide 24 mmol/L (21-32) 10/21/18 05:30 Anion Gap 9 MMOL/L (8-16) 10/21/18 05:30 BUN 7 mg/dL (7-18) 10/21/18 05:30 Creatinine 0.6 mg/dL (0.55-1.3) 10/21/18 05:30 Creat Clearance w eGFR > 60 (>60) 10/21/18 05:30 POC Glucometer 306.47801 UNITS (80-120) 10/21/18 14:05 Random Glucose 314 mg/dL (74-106) H* 10/21/18 05:30 Hemoglobin A1c % 9.8 % (4.2-6.3) H 10/20/18 05:30 Lactic Acid 1.0 mmol/L (0.4-2.0) 10/20/18 05:30 Calcium 7.8 mg/dL (8.5-10.1) L 10/21/18 05:30 Phosphorus 2.4 mg/dL (2.5-4.9) L 10/21/18 05:30 Magnesium 1.8 mg/dL (1.8-2.4) 10/21/18 05:30 Total Bilirubin 0.5 mg/dL (0.2-1) 10/21/18 05:30 AST 9 U/L (15-37) L 10/21/18 05:30 ALT 18 U/L (13-61) 10/21/18 05:30 Alkaline Phosphatase 79 U/L (45-117) 10/21/18 05:30 Total Protein 5.6 g/dl (6.4-8.2) L 10/21/18 05:30 Albumin 2.9 g/dl (3.4-5.0) L 10/21/18 05:30 Lipase 55 U/L (73-393) L 10/19/18 12:51 Beta HCG, Quant 63052.9 mIU/ml 10/19/18 12:51 Current Medications Generic Name Dose Route Start Last Admin Trade Name Freq PRN Reason Stop Dose Admin Chlorhexidine Gluconate 1 applic 10/19/18 22:00 10/20/18 22:43 Hibiclens For Decolonization - TP 1 applic HS DREA Administration Clonazepam 1 mg 10/19/18 22:00 10/21/18 09:45 Klonopin - PO 1 mg BID DREA Administration Heparin Sodium (Porcine) 5,000 unit 10/19/18 19:01 10/21/18 13:59 Heparin - SQ 5,000 unit TID DREA Administration Potassium Chloride/Sodium Chloride 20 meq in 1,000 mls @ 100 mls/hr 10/20/18 14:00 10/21/18 14:00 Ns+20 Meq Kcl - IV 10/21/18 23:59 Not Given ASDIR [facility] Insulin Aspart 1 vial 10/20/18 18:00 10/21/18 14:07 Novolog Vial Sliding Scale - SQ 5 unit Q4HPO [facility] Administration Protocol Insulin Detemir 10 units 10/20/18 10:00 10/21/18 07:00 Levemir Vial SQ Not Given BID@0700,2200 [facility] Morphine Sulfate 2 mg 10/19/18 19:58 10/21/18 09:50 Morphine Sulfate IVPUSH 2 mg Q4H PRN Administration PAIN LEVEL 6-10 Mupirocin 1 applic 10/19/18 22:00 10/21/18 09:45 Bactroban Ointment (For Decolonization) - NS 10/24/18 21:59 1 applic BID DREA Administration Pantoprazole Sodium 40 mg 10/21/18 10:00 10/21/18 09:45 Protonix - PO 40 mg DAILY DREA Administration Polyethylene Glycol 17 gm 10/21/18 10:00 10/21/18 10:02 Miralax (For Daily Use) - PO Not Given DAILY DREA Multivit/Folic Acid/Iron 1 tab 10/20/18 10:00 10/21/18 12:40 Vitamins (Sjr) - PO 1 tab DAILY DREA Administration Promethazine HCl 12.5 mg 10/19/18 20:04 10/21/18 01:47 Phenergan Suppository - [place] 12.5 mg Q4H PRN Administration NAUSEA AND/OR VOMITING Promethazine HCl 12.5 mg 10/21/18 12:15 10/21/18 12:42 Phenergan Injection - IVPB 12.5 mg Q6H-IV DREA Administration AP: Uncontrolled DM with hyperglycemia Off Insulin drip Levemir 10 BID, didn't get it in the morning as pt had poor apetite Levemir to be given tonight Novolog SS coverage Q4hr BGM Q 4 hrs Restart Insulin drip with adjustment as necessary if blood sugar remains persistently >250 electrolyte replacement as necessary will F/U Refractory Gastroparesis GI consult noted
--- NOTE | 2018-10-21 17:29 | PN ---
Progress Note (short form) - Note Progress Note: CCM SUBJECTIVE: Patient seen and examined in the ICU. -gap remains closed -less n/v but still hard to eat, no appetite -in for bed Objective Vital Signs Temp 98.5 F 10/21/18 08:00 Pulse 95 H 10/21/18 11:50 Resp 16 10/21/18 11:50 BP 163/92 10/21/18 11:50 Pulse Ox 99 10/21/18 09:00 Intake & Output 10/20/18 10/21/18 10/21/18 23:59 11:59 23:59 Intake Total 1940 1190 Balance 1940 1190 Intake: IV 1300 1190 D5-1/2Ns - 1,000 ml @ 100 200 mls/hr IV ASDIR DREA Rx#: [id number] NS+20 MEQ KCL - 20 meq In 400 1190 1,000 ml @ 100 mls/hr IV ASDIR DREA Rx#: [id number] Normal Saline - 1,000 ml 700 @ 150 mls/hr IV ASDIR STA Rx#:[id number] Oral 640 Other: Voiding Method Toilet Toilet # Unmeasured Voids Void 2 2 2 Bowel Movement Yes Yes # Bowel Movements 1 1 Active Medications Chlorhexidine Gluconate (Hibiclens For Decolonization -) 1 applic TP HS [facility] Last Admin: 10/20/18 22:43 Dose: 1 applic Clonazepam (Klonopin -) 1 mg PO BID [facility] Last Admin: 10/21/18 09:45 Dose: 1 mg Heparin Sodium (Porcine) (Heparin -) 5,000 unit SQ TID [facility] Last Admin: 10/21/18 13:59 Dose: 5,000 unit Potassium Chloride/Sodium Chloride (Ns+20 Meq Kcl -) 20 meq in 1,000 mls @ 100 mls/hr IV ASDIR DREA Stop: 10/21/18 23:59 Last Admin: 10/21/18 14:00 Dose: Not Given Insulin Aspart (Novolog Vial Sliding Scale -) 1 vial SQ Q4HPO [facility]; Protocol Last Admin: 10/21/18 14:07 Dose: 5 unit Insulin Detemir (Levemir Vial) 10 units SQ BID@0700,2200 [facility] Last Admin: 10/21/18 07:00 Dose: Not Given Morphine Sulfate (Morphine Sulfate) 2 mg IVPUSH Q4H PRN PRN Reason: PAIN LEVEL 6-10 Last Admin: 10/21/18 09:50 Dose: 2 mg Mupirocin (Bactroban Ointment (For Decolonization) -) 1 applic NS BID [facility] Stop: 10/24/18 21:59 Last Admin: 10/21/18 09:45 Dose: 1 applic Pantoprazole Sodium (Protonix -) 40 mg PO DAILY [facility] Last Admin: 10/21/18 09:45 Dose: 40 mg Polyethylene Glycol (Miralax (For Daily Use) -) 17 gm PO DAILY [facility] Last Admin: 10/21/18 10:02 Dose: Not Given Multivit/Folic Acid/Iron ( Vitamins (Sjr) -) 1 tab PO DAILY [facility] Last Admin: 10/21/18 12:40 Dose: 1 tab Promethazine HCl (Phenergan Suppository -) 12.5 mg GA Q4H PRN PRN Reason: NAUSEA AND/OR VOMITING Last Admin: 10/21/18 01:47 Dose: 12.5 mg Promethazine HCl (Phenergan Injection -) 12.5 mg IVPB Q6H-IV DREA Last Admin: 10/21/18 12:42 Dose: 12.5 mg GENERAL: alert, oriented, frustrated HEAD: NCAT EYES: PERRLA EARS, NOSE, THROAT: Moist mucous membranes. NECK: supple LUNGS:clear HEART: Regular rate and rhythm, normal S1 and S2 without murmur, rub or gallop. ABDOMEN: Soft, nontender, not distended, normoactive bowel sounds, no guarding, no rebound, no masses. No hepatomegaly or splenomegaly. NEUROLOGICAL: Non-focal SKIN: Warm, dry, normal turgor, no rashes or lesions noted. CBC, BMP 10/21/18 05:30 10/21/18 05:30 ASSESSMENT/PLAN: Resolving DKA History of gastroparesis w/ J tube (removed 05/2018) IDDM Gastric myotomy Approximately 5 weeks gestational cont Reglan Insulin coverage Follow BMP PO as tolerated Follow fever curve Can monitor on 3W Insulin titration per Endocrine should pursue further treatment options at tertiary care, though suspect nothing can be pursued during . Angelique [facility] [id number]
[2018-10-21] MEDS ORDERED: PROMETHAZINE HCL 12.5 MG SUPPOSITORY PR PRN (21:08)
[2018-10-21] MEDS ORDERED: INSULIN SLIDING SCALE (NOVOLOG) 1 VIAL SQ ONE (21:56)
[2018-10-21] MEDS ORDERED: CHLORHEXIDINE GLUCONATE 4% CLEANSER FOR DECOLONIZATION TP SCH (22:00)
[2018-10-21] MEDS ORDERED: MORPHINE SULFATE 2 MG/ML VIAL IVPUSH ONE (23:11)
[2018-10-22] MEDS ORDERED: RANITIDINE HCL 150 MG/10 ML UNIT-DOSE PO ONE (00:05)
[2018-10-22 01:20] VITALS: BMI 18.2
[2018-10-22] MEDS: INSULIN SLIDING SCALE (NOVOLOG) 1 VIAL SQ SCH ×6 (02:30→21:29)
[2018-10-22] MEDS: PROMETHAZINE HCL 25 MG/1 ML VIAL IVPB SCH ×4 (02:31→21:29)
[2018-10-22] MEDS: INSULIN (LEVEMIR) 100 UNITS/ML UNITS SQ SCH ×2 (06:34→21:29)
[2018-10-22] MEDS: HEPARIN NA (PORCINE) 5,000 UNITS/ML 1ML VIAL SQ SCH ×3 (06:34→21:29)
[2018-10-22 08:10] LABS: BASO % 0.7 % (0-2.0); EOS % 0.4 % (0-4.5); HEMATOCRIT 35.1 % (32.4-45.2); HEMOGLOBIN 11.8 GM/dL (10.7-15.3); LYMPH % 38.2 % (8-40); MCH 28.8 pg (25.7-33.7); MCHC 33.6 g/dl (32.0-36.0); MEAN CELL VOLUME 85.7 fl (80-96); MEAN PLT VOLUME 8.4 fl (7.5-11.1); MONO % 7.8 % (3.8-10.2); NEUT % 52.9 % (42.8-82.8); PLATELET COUNT 269 K/MM3 (134-434); RBC 4.09 M/mm3 (3.60-5.2); RDW 13.8 % (11.6-15.6)
[2018-10-22 09:06] LABS: ALBUMIN 3.1 g/dl (3.4-5.0); ALK PHOS 81 U/L (45-117); ANION GAP 8 MMOL/L (8-16); BILIRUBIN,TOTAL 0.5 mg/dL (0.2-1); BLOOD UREA NITROGEN 5 mg/dL (7-18); CALCIUM 8.2 mg/dL (8.5-10.1); CHLORIDE 102 mmol/L (98-107); CO2 25 mmol/L (21-32); GLUCOSE,RANDOM 164 mg/dL (74-106); POTASSIUM 3.1 mmol/L (3.5-5.1); SGOT/AST 10 U/L (15-37); SODIUM 135 mmol/L (136-145); TOT PROT 5.9 g/dl (6.4-8.2)
[2018-10-22] MEDS ORDERED: KCL 10 MEQ IVPB 10 MEQ/100 ML INFUS.BAG IVPB SCH (09:30)
--- NOTE | 2018-10-22 09:32 | PN ---
Physical Exam: SUBJECTIVE: Patient seen and examined at the bedside. ate breakfast, having less nausea. still having abd. pain. will give morphine 1mg x 1, but will defer any further morphine 2/2 to . IV tylenol ordered. monitor pain scale OBJECTIVE: patient now in 3west Vital Signs Period Temp Pulse Resp BP Sys/Powell Pulse Ox Last 24 Hr 98.4 F-99.5 F 81-130 16-20 105-169/57-100 GENERAL: The patient is awake, and fully oriented, in no acute distress. HEAD: Normal with no signs of trauma. EYES: PERRL, extraocular movements intact, sclera anicteric, conjunctiva clear. No ptosis. ENT: Ears normal, nares patent, oropharynx clear without exudates, moist mucous membranes. NECK: Trachea midline, full range of motion, supple. LUNGS: Breath sounds equal, clear to auscultation bilaterally, no wheezes, no crackles, no accessory muscle use. HEART: Regular rate and rhythm ABDOMEN: Soft, nontender, nondistended, normoactive bowel sounds, no guarding, no rebound, no hepatosplenomegaly, no masses. EXTREMITIES: no edema. NEUROLOGICAL: Normal speech, gait not observed. PSYCH: Normal mood, normal affect. SKIN: Warm, dry, normal turgor, no rashes or lesions noted Laboratory Results - last 24 hr 10/20/18 10/20/18 10/20/18 12:36 13:41 14:38 WBC RBC Hgb Hct MCV MCH MCHC RDW Plt Count MPV Absolute Neuts (auto) Neutrophils % Lymphocytes % Monocytes % Eosinophils % Basophils % Nucleated RBC % Sodium Potassium Chloride Carbon Dioxide Anion Gap BUN POC Glucometer > 400 > 400 337.62628 Random Glucose Calcium Total Bilirubin AST Alkaline Phosphatase Total Protein Albumin 10/20/18 10/20/18 10/20/18 17:20 18:40 20:41 WBC RBC Hgb Hct MCV MCH MCHC RDW Plt Count MPV Absolute Neuts (auto) Neutrophils % Lymphocytes % Monocytes % Eosinophils % Basophils % Nucleated RBC % Sodium Potassium Chloride Carbon Dioxide Anion Gap BUN POC Glucometer 194.02353 172.74665 229.99133 Random Glucose Calcium Total Bilirubin AST Alkaline Phosphatase Total Protein Albumin 10/21/18 10/21/18 10/21/18 10:01 14:05 17:25 WBC RBC Hgb Hct MCV MCH MCHC RDW Plt Count MPV Absolute Neuts (auto) Neutrophils % Lymphocytes % Monocytes % Eosinophils % Basophils % Nucleated RBC % Sodium Potassium Chloride Carbon Dioxide Anion Gap BUN POC Glucometer 120.33368 306.04386 199.94753 Random Glucose Calcium Total Bilirubin AST Alkaline Phosphatase Total Protein Albumin 10/21/18 10/22/18 10/22/18 22:45 02:29 06:32 WBC RBC Hgb Hct MCV MCH MCHC RDW Plt Count MPV Absolute Neuts (auto) Neutrophils % Lymphocytes % Monocytes % Eosinophils % Basophils % Nucleated RBC % Sodium Potassium Chloride Carbon Dioxide Anion Gap BUN POC Glucometer 288 266 189 Random Glucose Calcium Total Bilirubin AST Alkaline Phosphatase Total Protein Albumin 10/22/18 10/22/18 07:30 07:30 WBC 8.0 RBC 4.09 Hgb 11.8 Hct 35.1 MCV 85.7 MCH 28.8 MCHC 33.6 RDW 13.8 Plt Count 269 MPV 8.4 Absolute Neuts (auto) 4.3 Neutrophils % 52.9 Lymphocytes % 38.2 D Monocytes % 7.8 Eosinophils % 0.4 Basophils % 0.7 Nucleated RBC % 0 Sodium 135 L Potassium 3.1 L Chloride 102 Carbon Dioxide 25 Anion Gap 8 BUN 5 L POC Glucometer Random Glucose 164 H Calcium 8.2 L Total Bilirubin 0.5 AST 10 L Alkaline Phosphatase 81 Total Protein 5.9 L Albumin 3.1 L Active Medications Generic Name Dose Route Start Last Admin Trade Name Freq PRN Reason Stop Dose Admin Chlorhexidine Gluconate 1 applic 10/21/18 22:00 Hibiclens For Decolonization - TP HS DREA Clonazepam 1 mg 10/21/18 22:00 10/21/18 22:50 Klonopin - PO 1 mg BID DREA Administration Heparin Sodium (Porcine) 5,000 unit 10/21/18 22:00 10/22/18 06:34 Heparin - SQ 5,000 unit TID DREA Administration Potassium Chloride/Sodium Chloride 20 meq in 1,000 mls @ 100 mls/hr 10/21/18 21:08 10/21/18 21:00 Ns+20 Meq Kcl - IV 100 mls/hr ASDIR DREA Administration Potassium Chloride 10 meq in 100 mls @ 100 mls/hr 10/22/18 09:30 Potassium Chloride 10 Meq Premix Ivpb - IVPB 10/22/18 10:29 Q60M DREA Insulin Aspart 1 vial 10/20/18 18:00 10/22/18 06:34 Novolog Vial Sliding Scale - SQ 2 unit Q4HPO DREA Administration Protocol Insulin Detemir 10 units 10/21/18 22:00 10/22/18 06:34 Levemir Vial SQ 10 units BID@0700,2200 DREA Administration Pantoprazole Sodium 40 mg 10/21/18 10:00 10/21/18 09:45 Protonix - PO 40 mg DAILY DREA Administration Polyethylene Glycol 17 gm 10/21/18 10:00 10/21/18 10:02 Miralax (For Daily Use) - PO Not Given DAILY DREA Multivit/Folic Acid/Iron 1 tab 10/22/18 10:00 Vitamins (Sjr) - PO DAILY DREA Promethazine HCl 12.5 mg 10/21/18 12:15 10/22/18 02:31 Phenergan Injection - IVPB 12.5 mg Q6H-IV DREA Administration Promethazine HCl 12.5 mg 10/21/18 21:08 Phenergan Suppository - IN Q4H PRN NAUSEA AND/OR VOMITING imaging: EKG regular rhythm, normal axis, normal intervals, no acute ST changes. sinus tachycardia. Transvaginal US: Single live uterine dating 5 weeks 6 days. HR 124. ASSESSMENT/PLAN: Patient is a 33 year old female who is 5 weeks . Her past medical history consists of diabetes, chronic gastroparesis s/p J-tube and removal at [facility]. At [facility], j tube fell out and [facility] referred her to [facility] [place] [facility] where she underwent a laparoscopic gastric myotomy on June 2018. 07/08. She presents to the ED on 10/19/2018 with 2-3 days of billious vomiting, nausea, and abdominal cramps. Glucose was 473,Anion gap (18) lactic acid 4.4, VBG ph 7.26. Started on insulin drip and transferred to the ICU for closer monitoring and a insulin drip initiated. On 10/21/2018 she was transferred from ICU to [facility]. Endocrine: Possible DKA/early DKA: resolved. Uncontrolled DM with hyperglycemia. Off insulin drip. anion gap closed. On Levemir BID, Novolog SS. Check bgms q 4 hours. Monitor electrolytes. K 3.1 today. will replete with 1 K rider and restart IVF with K. Sepsis, rule out elevated hr and leukocytosis on admission. now resolved. No signs of infection. blood cultures negative. uc pending Gastroparesis, persistent nausea Hyperemesis vs gastroparesis causing vomiting and nausea. Morpine 1mg x 1 for abdominal pain with caution 2/2 to . IV Tylenol ordered for pain. On scheduled prometazine hlc 12.5 q6 scheduled. On Phenergan suppository q 4 prn. Patient with multiple hospitalizations here for nausea/vomiting and dehydration. she is s/p j tube and had a recent laparoscopic gastric myotomy on June 2018. 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 1st trimester . per ultrasound 10/19: single live fetus apx 5 weeks 5 days. being followed by TRAFFIC ENGINEERING TECHNICIAN. Recommendations noted and appreciated. vitamins daily. fen NS with 20meq @ 75/cchr monitor electrolytes. monitor electrolytes diabetic diet prophy heparin full code Visit type - Emergency Visit Emergency Visit: Yes ED Registration Date: 10/19/18 Care time: The patient presented to the Emergency Department on the above date and was hospitalized for further evaluation of their emergent condition. - New Patient This patient is new to me today: No - Critical Care Critical Care patient: No - Discharge Referral Referred to [facility] Med P.C.: No
[2018-10-22 09:50] LABS: CREATININE 0.5 mg/dL (0.55-1.3); MAGNESIUM 1.9 mg/dL (1.8-2.4); SGPT/ALT 17 U/L (13-61)
[2018-10-22] MEDS: SODIUM CHLORIDE 0.9%/KCL 20 MEQ/1,000 ML INFUS.BAG IV SCH (10:51)
[2018-10-22] MEDS: clonazePAM 0.5 MG TABLET PO SCH (11:05)
[2018-10-22] MEDS: PRENATAL VITAMINS W/ FOLIC ACID TABLET (FP) PO SCH (11:06)
[2018-10-22] MEDS ORDERED: MORPHINE SULFATE 2 MG/ML VIAL IVPUSH ONE (11:38)
[2018-10-22] MEDS ORDERED: clonazePAM 0.5 MG TABLET PO PRN (12:31)
[2018-10-22] MEDS: POLYETHYLENE GLYCOL 3350 119 GM BTL PO SCH (12:51)
[2018-10-22] MEDS: PANTOPRAZOLE 40 MG TABLET (FP) PO SCH (12:52)
--- NOTE | 2018-10-22 13:34 | PN ---
Progress Note (short form) - Note Progress Note: Still with nausea, vomited twice as per pt Poor apetitie, didn't eat lunch yet Got Morphine for pain Vital Signs Period Temp Pulse Resp BP Sys/Powell Pulse Ox Last 24 Hr 98.4 F-99.5 F 84-130 18-20 105-164/57-89 PE AOx3 Neck: Supple, No JVD HEENT: EOMI Lungs: CTA CVS: S1S2 Abd: Benign Ext: No edema Neuro: No focal deficit CMP Sodium 135 mmol/L (136-145) L 10/22/18 07:30 Potassium 3.1 mmol/L (3.5-5.1) L 10/22/18 07:30 Chloride 102 mmol/L (98-107) 10/22/18 07:30 Carbon Dioxide 25 mmol/L (21-32) 10/22/18 07:30 Anion Gap 8 MMOL/L (8-16) 10/22/18 07:30 BUN 5 mg/dL (7-18) L 10/22/18 07:30 Creatinine 0.5 mg/dL (0.55-1.3) L 10/22/18 07:30 Creat Clearance w eGFR > 60 (>60) 10/22/18 07:30 POC Glucometer 250 UNITS (80-120) 10/22/18 10:57 Random Glucose 164 mg/dL (74-106) H 10/22/18 07:30 Hemoglobin A1c % 9.8 % (4.2-6.3) H 10/20/18 05:30 Lactic Acid 1.0 mmol/L (0.4-2.0) 10/20/18 05:30 Calcium 8.2 mg/dL (8.5-10.1) L 10/22/18 07:30 Phosphorus 2.4 mg/dL (2.5-4.9) L 10/21/18 05:30 Magnesium 1.9 mg/dL (1.8-2.4) 10/22/18 07:30 Total Bilirubin 0.5 mg/dL (0.2-1) 10/22/18 07:30 AST 10 U/L (15-37) L 10/22/18 07:30 ALT 17 U/L (13-61) 10/22/18 07:30 Alkaline Phosphatase 81 U/L (45-117) 10/22/18 07:30 Total Protein 5.9 g/dl (6.4-8.2) L 10/22/18 07:30 Albumin 3.1 g/dl (3.4-5.0) L 10/22/18 07:30 Lipase 55 U/L (73-393) L 10/19/18 12:51 Beta HCG, Quant 99810.9 mIU/ml 10/19/18 12:51 Current Medications Generic Name Dose Route Start Last Admin Trade Name Freq PRN Reason Stop Dose Admin Acetaminophen 1,000 mg 10/22/18 12:29 Ofirmev Injection - IVPB Q6H PRN PAIN LEVEL 7 - 10 Clonazepam 1 mg 10/22/18 12:31 Klonopin - PO Q12H PRN ANXIETY Heparin Sodium (Porcine) 5,000 unit 10/21/18 22:00 10/22/18 06:34 Heparin - SQ 5,000 unit TID DREA Administration Potassium Chloride/Sodium Chloride 20 meq in 1,000 mls @ 100 mls/hr 10/21/18 21:08 10/22/18 10:51 Ns+20 Meq Kcl - IV 100 mls/hr ASDIR DREA Administration Insulin Aspart 1 vial 10/20/18 18:00 10/22/18 11:06 Novolog Vial Sliding Scale - SQ 3 unit Q4HPO DREA Administration Protocol Insulin Detemir 10 units 10/21/18 22:00 10/22/18 06:34 Levemir Vial SQ 10 units BID@0700,2200 DREA Administration Pantoprazole Sodium 40 mg 10/21/18 10:00 10/22/18 12:52 Protonix - PO Not Given DAILY DREA Polyethylene Glycol 17 gm 10/21/18 10:00 10/22/18 12:51 Miralax (For Daily Use) - PO Not Given DAILY DREA Multivit/Folic Acid/Iron 1 tab 10/22/18 10:00 10/22/18 11:06 Vitamins (Sjr) - PO 1 tab DAILY DREA Administration Promethazine HCl 12.5 mg 10/21/18 12:15 10/22/18 09:33 Phenergan Injection - IVPB 12.5 mg Q6H-IV DREA Administration Promethazine HCl 12.5 mg 10/21/18 21:08 Phenergan Suppository - ND Q4H PRN NAUSEA AND/OR VOMITING AP: Uncontrolled DM with hyperglycemia Off Insulin drip Levemir 10 BID, Novolog SS coverage Q4hr BGM Q 4 hrs. Snack of around 150 KCal whenever FS <120 Electrolyte replacement as necessary will F/U Refractory Gastroparesis GI consult noted
[2018-10-22] MEDS: ACETAMINOPHEN 1000 MG/100 ML VIAL (NON FORMULARY) IVPB PRN (17:36)
[2018-10-22] MEDS ORDERED: INSULIN SLIDING SCALE (NOVOLOG) 1 VIAL SQ ONE (21:18)
[2018-10-23] MEDS: ACETAMINOPHEN 1000 MG/100 ML VIAL (NON FORMULARY) IVPB PRN ×2 (00:17→06:13)
[2018-10-23] MEDS ORDERED: RANITIDINE HCL 150 MG TABLET (FP) PO ONE (00:42)
[2018-10-23] MEDS: INSULIN SLIDING SCALE (NOVOLOG) 1 VIAL SQ SCH ×4 (01:59→14:04)
[2018-10-23] MEDS: PROMETHAZINE HCL 25 MG/1 ML VIAL IVPB SCH ×3 (03:30→16:39)
[2018-10-23] MEDS: INSULIN (LEVEMIR) 100 UNITS/ML UNITS SQ SCH (06:06)
[2018-10-23] MEDS: HEPARIN NA (PORCINE) 5,000 UNITS/ML 1ML VIAL SQ SCH ×2 (06:06→14:43)
[2018-10-23 08:54] LABS: BASO % 0.3 % (0-2.0); EOS % 0.3 % (0-4.5); HEMOGLOBIN 12.4 GM/dL (10.7-15.3); MCH 28.4 pg (25.7-33.7); MCHC 32.7 g/dl (32.0-36.0); MEAN CELL VOLUME 86.7 fl (80-96); MEAN PLT VOLUME 7.7 fl (7.5-11.1); MONO % 10.5 % (3.8-10.2); NEUT % 63.9 % (42.8-82.8); PLATELET COUNT 282 K/MM3 (134-434); RBC 4.38 M/mm3 (3.60-5.2); WHITE BLOOD COUNT 8.3 K/mm3 (4.0-10.0)
[2018-10-23 09:20] LABS: ALBUMIN 3.4 g/dl (3.4-5.0); ALK PHOS 88 U/L (45-117); ANION GAP 10 MMOL/L (8-16); BILIRUBIN,TOTAL 0.6 mg/dL (0.2-1); BLOOD UREA NITROGEN 5 mg/dL (7-18); CALCIUM 8.5 mg/dL (8.5-10.1); CHLORIDE 102 mmol/L (98-107); CO2 22 mmol/L (21-32); CREATININE 0.4 mg/dL (0.55-1.3); GLUCOSE,RANDOM 129 mg/dL (74-106); MAGNESIUM 1.8 mg/dL (1.8-2.4); POTASSIUM 3.2 mmol/L (3.5-5.1); SGOT/AST 17 U/L (15-37); SGPT/ALT 23 U/L (13-61); SODIUM 133 mmol/L (136-145); TOT PROT 6.4 g/dl (6.4-8.2)
[2018-10-23 09:37] VITALS: TEMP 98.6
[2018-10-23] MEDS ORDERED: POTASSIUM CHLORIDE TABS 20 MEQ TABLET.ER (FP) PO ONE (10:22)
--- NOTE | 2018-10-23 10:36 | DS ---
Physical Exam: SUBJECTIVE: Patient seen and examined alejandro barth. 10bid. ss every ac. followup with outpatient OBJECTIVE: Vital Signs Period Temp Pulse Resp BP Sys/Powell Pulse Ox Last 24 Hr 98.4 F-99 F 76-108 18-22 102-144/60-88 PHYSICAL EXAM GENERAL: The patient is awake, alert, and fully oriented, in no acute distress. HEAD: Normal with no signs of trauma. EYES: PERRL, extraocular movements intact, sclera anicteric, conjunctiva clear. ENT: Ears normal, nares patent, oropharynx clear without exudates, moist mucous membranes. NECK: Trachea midline, full range of motion, supple. LUNGS: Breath sounds equal, clear to auscultation bilaterally, no wheezes, no crackles, no accessory muscle use. HEART: Regular rate and rhythm, S1, S2 without murmur, rub or gallop. ABDOMEN: Soft, nontender, nondistended, normoactive bowel sounds, no guarding, no rebound, no hepatosplenomegaly, no masses. EXTREMITIES: 2+ pulses, warm, well-perfused, no edema. NEUROLOGICAL: Cranial nerves II through XII grossly intact. Normal speech, gait not observed. PSYCH: Normal mood, normal affect. SKIN: Warm, dry, normal turgor, no rashes or lesions noted. LABS Laboratory Results - last 24 hr 10/22/18 10/22/18 10/22/18 10:57 13:51 17:24 WBC RBC Hgb Hct MCV MCH MCHC RDW Plt Count MPV Absolute Neuts (auto) Neutrophils % Lymphocytes % Monocytes % Eosinophils % Basophils % Nucleated RBC % Sodium Potassium Chloride Carbon Dioxide Anion Gap BUN Creatinine Creat Clearance w eGFR POC Glucometer 250 124 244 Random Glucose Calcium Magnesium Total Bilirubin AST ALT Alkaline Phosphatase Total Protein Albumin 10/22/18 10/23/18 10/23/18 21:25 01:57 06:03 WBC RBC Hgb Hct MCV MCH MCHC RDW Plt Count MPV Absolute Neuts (auto) Neutrophils % Lymphocytes % Monocytes % Eosinophils % Basophils % Nucleated RBC % Sodium Potassium Chloride Carbon Dioxide Anion Gap BUN Creatinine Creat Clearance w eGFR POC Glucometer 330 210 183 Random Glucose Calcium Magnesium Total Bilirubin AST ALT Alkaline Phosphatase Total Protein Albumin 10/23/18 10/23/18 10/23/18 08:30 08:30 09:02 WBC 8.3 RBC 4.38 Hgb 12.4 Hct 38.0 MCV 86.7 MCH 28.4 MCHC 32.7 RDW 14.0 Plt Count 282 MPV 7.7 Absolute Neuts (auto) 5.3 Neutrophils % 63.9 D Lymphocytes % 25.0 D Monocytes % 10.5 H Eosinophils % 0.3 Basophils % 0.3 Nucleated RBC % 0 Sodium 133 L Potassium 3.2 L Chloride 102 Carbon Dioxide 22 Anion Gap 10 BUN 5 L Creatinine 0.4 L Creat Clearance w eGFR > 60 POC Glucometer 125 Random Glucose 129 H Calcium 8.5 Magnesium 1.8 Total Bilirubin 0.6 AST 17 ALT 23 Alkaline Phosphatase 88 Total Protein 6.4 Albumin 3.4 HOSPITAL COURSE: Date of Admission:10/19/18 Date of Discharge: 10/23/18 Discharge Summary Reason For Visit: DIABETIC KETOACIDOSIS,DIABETIC GASTROPARESIS Current Active Problems DKA (diabetic ketoacidoses) (Acute) Gastroparesis due to DM (Acute) Hyperemesis gravidarum (Acute) Condition: Stable - Instructions Referrals: Maira Oswald MD [Primary Care Provider] - Henrry Feng MD [Staff Physician] - 1 Week - Home Medications Comprehensive Discharge Medication List: Ambulatory Orders Promethazine HCl [Phenergan Plain 6.25 MG/5 ML -] 5 ml PO TID 05/04/18 Clonazepam [Klonopin] 1 mg PO BID 06/11/18 Dronabinol [Marinol -] 5 mg PO ONCE PRN 06/11/18 Insulin Glargine,Hum.rec.anlog [Basaglar Kwikpen U-100] 25 unit SQ BID 06/11/18 Insulin Lispro [Admelog] 100 unit SQ ASDIR 06/11/18 Mirtazapine [Remeron -] 30 mg PO DAILY 06/11/18 Omeprazole 40 mg PO DAILY 06/11/18 Promethazine HCl [Phenergan -] 25 mg PO TID #21 tablet 07/10/18 - Discharge Referral Referred to [facility] No
[2018-10-23] MEDS: PRENATAL VITAMINS W/ FOLIC ACID TABLET (FP) PO SCH (10:47)
[2018-10-23] MEDS: PANTOPRAZOLE 40 MG TABLET (FP) PO SCH (10:48)
[2018-10-23] MEDS: POLYETHYLENE GLYCOL 3350 119 GM BTL PO SCH (10:49)
--- NOTE | 2018-10-23 11:37 | PN ---
Progress Note (short form) - Note Progress Note: Still with nausea, vomiting as per pt Poor apetitie, had Ensure for breakfast Vital Signs Period Temp Pulse Resp BP Sys/Powell Pulse Ox Last 24 Hr 98.4 F-99 F 76-108 18-22 102-144/60-88 PE: A Ox3 Neck: Supple, No JVD HEENT: EOMI Lungs: CTA CVS: S1S2 Abd: Benign Ext: No edema Neuro: No focal deficit CMP Sodium 133 mmol/L (136-145) L 10/23/18 08:30 Potassium 3.2 mmol/L (3.5-5.1) L 10/23/18 08:30 Chloride 102 mmol/L (98-107) 10/23/18 08:30 Carbon Dioxide 22 mmol/L (21-32) 10/23/18 08:30 Anion Gap 10 MMOL/L (8-16) 10/23/18 08:30 BUN 5 mg/dL (7-18) L 10/23/18 08:30 Creatinine 0.4 mg/dL (0.55-1.3) L 10/23/18 08:30 Creat Clearance w eGFR > 60 (>60) 10/23/18 08:30 POC Glucometer 125 UNITS (80-120) 10/23/18 09:02 Random Glucose 129 mg/dL (74-106) H 10/23/18 08:30 Hemoglobin A1c % 9.8 % (4.2-6.3) H 10/20/18 05:30 Lactic Acid 1.0 mmol/L (0.4-2.0) 10/20/18 05:30 Calcium 8.5 mg/dL (8.5-10.1) 10/23/18 08:30 Phosphorus 2.4 mg/dL (2.5-4.9) L 10/21/18 05:30 Magnesium 1.8 mg/dL (1.8-2.4) 10/23/18 08:30 Total Bilirubin 0.6 mg/dL (0.2-1) 10/23/18 08:30 AST 17 U/L (15-37) 10/23/18 08:30 ALT 23 U/L (13-61) 10/23/18 08:30 Alkaline Phosphatase 88 U/L (45-117) 10/23/18 08:30 Total Protein 6.4 g/dl (6.4-8.2) 10/23/18 08:30 Albumin 3.4 g/dl (3.4-5.0) 10/23/18 08:30 Lipase 55 U/L (73-393) L 10/19/18 12:51 Beta HCG, Quant 94805.9 mIU/ml 10/19/18 12:51 Current Medications Generic Name Dose Route Start Last Admin Trade Name Freq PRN Reason Stop Dose Admin Acetaminophen 1,000 mg 10/22/18 12:29 10/23/18 06:13 Ofirmev Injection - IVPB 1,000 mg Q6H PRN Administration PAIN LEVEL 7 - 10 Clonazepam 1 mg 10/22/18 12:31 Klonopin - PO Q12H PRN ANXIETY Heparin Sodium (Porcine) 5,000 unit 10/21/18 22:00 10/23/18 06:06 Heparin - SQ 5,000 unit TID DREA Administration Potassium Chloride/Sodium Chloride 20 meq in 1,000 mls @ 100 mls/hr 10/21/18 21:08 10/22/18 10:51 Ns+20 Meq Kcl - IV 100 mls/hr ASDIR DREA Administration Insulin Aspart 1 vial 10/20/18 18:00 10/23/18 09:14 Novolog Vial Sliding Scale - SQ Not Given Q4HPO [facility] Protocol Insulin Detemir 10 units 10/21/18 22:00 10/23/18 06:06 Levemir Vial SQ 10 units BID@0700,2200 DREA Administration Pantoprazole Sodium 40 mg 10/21/18 10:00 10/23/18 10:48 Protonix - PO 40 mg DAILY DREA Administration Polyethylene Glycol 17 gm 10/21/18 10:00 10/23/18 10:49 Miralax (For Daily Use) - PO Not Given DAILY DREA Multivit/Folic Acid/Iron 1 tab 10/22/18 10:00 10/23/18 10:47 Vitamins (Sjr) - PO 1 tab DAILY DREA Administration Promethazine HCl 12.5 mg 10/21/18 12:15 10/23/18 09:16 Phenergan Injection - IVPB Not Given Q6H-IV DREA Promethazine HCl 12.5 mg 10/21/18 21:08 Phenergan Suppository - NM Q4H PRN NAUSEA AND/OR VOMITING AP: Uncontrolled DM with hyperglycemia Off Insulin drip Levemir 10 BID, Novolog SS coverage Q4hr BGM Q 4 hrs. Snack of around 150 KCal whenever FS <120 Electrolyte replacement as necessary will F/U Refractory Gastroparesis Discussed with GI, F/u with GI at [facility]
--- NOTE | 2018-10-23 12:38 | PN ---
Physical Exam: SUBJECTIVE: Patient seen and examined OBJECTIVE: Vital Signs Period Temp Pulse Resp BP Sys/Powell Pulse Ox Last 24 Hr 98.4 F-99 F 76-108 18-22 102-144/60-88 GENERAL: The patient is awake, alert, and fully oriented, in no acute distress. HEAD: Normal with no signs of trauma. EYES: PERRL, extraocular movements intact, sclera anicteric, conjunctiva clear. No ptosis. ENT: Ears normal, nares patent, oropharynx clear without exudates, moist mucous membranes. NECK: Trachea midline, full range of motion, supple. LUNGS: Breath sounds equal, clear to auscultation bilaterally, no wheezes, no crackles, no accessory muscle use. HEART: Regular rate and rhythm, S1, S2 without murmur, rub or gallop. ABDOMEN: Soft, nontender, nondistended, normoactive bowel sounds, no guarding, no rebound, no hepatosplenomegaly, no masses. EXTREMITIES: 2+ pulses, warm, well-perfused, no edema. NEUROLOGICAL: Cranial nerves II through XII grossly intact. Normal speech, gait not observed. PSYCH: Normal mood, normal affect. SKIN: Warm, dry, normal turgor, no rashes or lesions noted Laboratory Results - last 24 hr 10/22/18 10/22/18 10/22/18 13:51 17:24 21:25 WBC RBC Hgb Hct MCV MCH MCHC RDW Plt Count MPV Absolute Neuts (auto) Neutrophils % Lymphocytes % Monocytes % Eosinophils % Basophils % Nucleated RBC % Sodium Potassium Chloride Carbon Dioxide Anion Gap BUN Creatinine Creat Clearance w eGFR POC Glucometer 124 244 330 Random Glucose Calcium Magnesium Total Bilirubin AST ALT Alkaline Phosphatase Total Protein Albumin 10/23/18 10/23/18 10/23/18 01:57 06:03 08:30 WBC 8.3 RBC 4.38 Hgb 12.4 Hct 38.0 MCV 86.7 MCH 28.4 MCHC 32.7 RDW 14.0 Plt Count 282 MPV 7.7 Absolute Neuts (auto) 5.3 Neutrophils % 63.9 D Lymphocytes % 25.0 D Monocytes % 10.5 H Eosinophils % 0.3 Basophils % 0.3 Nucleated RBC % 0 Sodium Potassium Chloride Carbon Dioxide Anion Gap BUN Creatinine Creat Clearance w eGFR POC Glucometer 210 183 Random Glucose Calcium Magnesium Total Bilirubin AST ALT Alkaline Phosphatase Total Protein Albumin 10/23/18 10/23/18 08:30 09:02 WBC RBC Hgb Hct MCV MCH MCHC RDW Plt Count MPV Absolute Neuts (auto) Neutrophils % Lymphocytes % Monocytes % Eosinophils % Basophils % Nucleated RBC % Sodium 133 L Potassium 3.2 L Chloride 102 Carbon Dioxide 22 Anion Gap 10 BUN 5 L Creatinine 0.4 L Creat Clearance w eGFR > 60 POC Glucometer 125 Random Glucose 129 H Calcium 8.5 Magnesium 1.8 Total Bilirubin 0.6 AST 17 ALT 23 Alkaline Phosphatase 88 Total Protein 6.4 Albumin 3.4 Active Medications Generic Name Dose Route Start Last Admin Trade Name Freq PRN Reason Stop Dose Admin Acetaminophen 1,000 mg 10/22/18 12:29 10/23/18 06:13 Ofirmev Injection - IVPB 1,000 mg Q6H PRN Administration PAIN LEVEL 7 - 10 Clonazepam 1 mg 10/22/18 12:31 Klonopin - PO Q12H PRN ANXIETY Heparin Sodium (Porcine) 5,000 unit 10/21/18 22:00 10/23/18 06:06 Heparin - SQ 5,000 unit TID DREA Administration Potassium Chloride/Sodium Chloride 20 meq in 1,000 mls @ 100 mls/hr 10/21/18 21:08 10/22/18 10:51 Ns+20 Meq Kcl - IV 100 mls/hr ASDIR DREA Administration Insulin Aspart 1 vial 10/20/18 18:00 10/23/18 09:14 Novolog Vial Sliding Scale - SQ Not Given Q4HPO [facility] Protocol Insulin Detemir 10 units 10/21/18 22:00 10/23/18 06:06 Levemir Vial SQ 10 units BID@0700,2200 DREA Administration Pantoprazole Sodium 40 mg 10/21/18 10:00 10/23/18 10:48 Protonix - PO 40 mg DAILY DREA Administration Polyethylene Glycol 17 gm 10/21/18 10:00 10/23/18 10:49 Miralax (For Daily Use) - PO Not Given DAILY DREA Multivit/Folic Acid/Iron 1 tab 10/22/18 10:00 10/23/18 10:47 Vitamins (Sjr) - PO 1 tab DAILY DREA Administration Promethazine HCl 12.5 mg 10/21/18 12:15 10/23/18 09:16 Phenergan Injection - IVPB Not Given Q6H-IV DREA Promethazine HCl 12.5 mg 10/21/18 21:08 Phenergan Suppository - SD Q4H PRN NAUSEA AND/OR VOMITING ASSESSMENT/PLAN:
--- NOTE | 2018-10-23 15:12 | DS ---
Physical Exam: SUBJECTIVE: Patient seen and examined at the bedside. Per verbal report from RN, patient tolerating diet and no vomiting reported overnight However patient states she vomited a few times overnight. later in day, states she felt better and eating better, tolerating diet. patient in agreement to be discharged and follow up outpatient. OBJECTIVE: patient to follow up with her GI specialist at [facility]. She has been sent with a referral to see Dr. Saucedo (endocrinology) symptoms resolved, tolerating diet. refusing phenergan iv or rectal suppositories Potassium supplemented. wants to go home Vital Signs Period Temp Pulse Resp BP Sys/Powell Pulse Ox Last 24 Hr 98.4 F-99 F 76-108 18-20 102-144/60-88 PHYSICAL EXAM GENERAL: The patient is awake, and fully oriented, in no acute distress. HEAD: Normal with no signs of trauma. EYES: PERRL, extraocular movements intact, sclera anicteric, conjunctiva clear. No ptosis. ENT: Ears normal, nares patent, oropharynx clear without exudates, moist mucous membranes. NECK: Trachea midline, full range of motion, supple. LUNGS: Breath sounds equal, clear to auscultation bilaterally, no wheezes, no crackles, no accessory muscle use. HEART: Regular rate and rhythm ABDOMEN: Soft, nontender, nondistended, normoactive bowel sounds, no guarding, no rebound, no hepatosplenomegaly, no masses. EXTREMITIES: no edema. NEUROLOGICAL: Normal speech, gait not observed. PSYCH: Normal mood, normal affect. SKIN: Warm, dry, normal turgor, no rashes or lesions noted LABS Laboratory Results - last 24 hr 10/22/18 10/22/18 10/23/18 17:24 21:25 01:57 WBC RBC Hgb Hct MCV MCH MCHC RDW Plt Count MPV Absolute Neuts (auto) Neutrophils % Lymphocytes % Monocytes % Eosinophils % Basophils % Nucleated RBC % Sodium Potassium Chloride Carbon Dioxide Anion Gap BUN Creatinine Creat Clearance w eGFR POC Glucometer 244 330 210 Random Glucose Calcium Magnesium Total Bilirubin AST ALT Alkaline Phosphatase Total Protein Albumin 10/23/18 10/23/18 10/23/18 06:03 08:30 08:30 WBC 8.3 RBC 4.38 Hgb 12.4 Hct 38.0 MCV 86.7 MCH 28.4 MCHC 32.7 RDW 14.0 Plt Count 282 MPV 7.7 Absolute Neuts (auto) 5.3 Neutrophils % 63.9 D Lymphocytes % 25.0 D Monocytes % 10.5 H Eosinophils % 0.3 Basophils % 0.3 Nucleated RBC % 0 Sodium 133 L Potassium 3.2 L Chloride 102 Carbon Dioxide 22 Anion Gap 10 BUN 5 L Creatinine 0.4 L Creat Clearance w eGFR > 60 POC Glucometer 183 Random Glucose 129 H Calcium 8.5 Magnesium 1.8 Total Bilirubin 0.6 AST 17 ALT 23 Alkaline Phosphatase 88 Total Protein 6.4 Albumin 3.4 10/23/18 10/23/18 09:02 13:45 WBC RBC Hgb Hct MCV MCH MCHC RDW Plt Count MPV Absolute Neuts (auto) Neutrophils % Lymphocytes % Monocytes % Eosinophils % Basophils % Nucleated RBC % Sodium Potassium Chloride Carbon Dioxide Anion Gap BUN Creatinine Creat Clearance w eGFR POC Glucometer 125 419 Random Glucose Calcium Magnesium Total Bilirubin AST ALT Alkaline Phosphatase Total Protein Albumin HOSPITAL COURSE: imaging: EKG regular rhythm, normal axis, normal intervals, no acute ST changes. sinus tachycardia. Transvaginal US: Single live uterine dating 5 weeks 6 days. HR 124. Patient is a 33 year old female who is 5 weeks . Her past medical history consists of diabetes, chronic gastroparesis s/p J-tube and removal at [facility]. At [facility], j tube fell out and [facility] referred her to [facility] where she underwent a laparoscopic gastric myotomy on June 2018. 07/08. She presents to the ED on 10/19/2018 with 2-3 days of billious vomiting, nausea, and abdominal cramps. Glucose was 473,Anion gap (18) lactic acid 4.4, VBG ph 7.26. Started on insulin drip and transferred to the ICU for closer monitoring and a insulin drip initiated. On 10/21/2018 she was transferred from ICU to [facility]. Endocrine: Possible DKA/early DKA: resolved. anion gap closed. On Levemir BID, Novolog SS. Check bgms ac/hs. patient sent home with new sliding scale and follow up with Dr. Saucedo. Monitor electrolytes. K repleted. Sepsis, rule out elevated hr and leukocytosis on admission. now resolved. No signs of infection. blood cultures negative. uc contaminated. Gastroparesis, persistent nausea Hyperemesis vs gastroparesis causing vomiting and nausea. Patient with multiple hospitalizations here for nausea/vomiting and dehydration. Patient is s/p j tube and had a recent laparoscopic gastric myotomy on June 2018. Patient now tolerating diet. 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 per ultrasound 10/19: single live fetus apx 5 weeks 5 days. being followed by COMPUTER SCIENCES PROFESSOR. Recommendations noted and appreciated. vitamins daily. 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 Date of Admission:10/19/18 Date of Discharge: 10/23/18 Minutes to complete discharge: 60 Discharge Summary Reason For Visit: DIABETIC KETOACIDOSIS,DIABETIC GASTROPARESIS Current Active Problems DKA (diabetic ketoacidoses) (Acute) Gastroparesis due to DM (Acute) Hyperemesis gravidarum (Acute) Condition: Improved - Instructions Diet, Activity, Other Instructions: Mrs Valentin: You were admitted with high sugar levels and we have adjusted your insulin medications as follows. Long acting insulin Basaglar: Take 10 units in the morning and 10 units at bedtime Humalog: Please use this sliding scale: Blood sugar take this many units: 101-150 none 151-200 2 201-250 3 251-300 4 301-350 5 351-400 6 400, please call your PCP or Dr. Saucedo It is important that you see Dr. Saucedo. and make an appointment for follow up. Please see your GI specialist for continued care. You can also see Dr. Mariee (referral enclosed). Thank you for allowing us to care for you. Karol Jameson [place] [employer]COM[employer]OSTESS [phone] [facility] Referrals: Maiar Oswald MD [Primary Care Provider] - Henrry Feng MD [Staff Physician] - 1 Week Disposition: HOME - Home Medications Comprehensive Discharge Medication List: Ambulatory Orders Promethazine HCl [Phenergan Plain 6.25 MG/5 ML -] 5 ml PO TID 05/04/18 Clonazepam [Klonopin] 1 mg PO BID 06/11/18 Dronabinol [Marinol -] 5 mg PO ONCE PRN 06/11/18 Insulin Glargine,Hum.rec.anlog [Basaglar Kwikpen U-100] 25 unit SQ BID 06/11/18 Insulin Lispro [Admelog] 100 unit SQ ASDIR 06/11/18 Mirtazapine [Remeron -] 30 mg PO DAILY 06/11/18 Omeprazole 40 mg PO DAILY 06/11/18 Promethazine HCl [Phenergan -] 25 mg PO TID #21 tablet 07/10/18 Chlorhexidine Gluconate [Hibiclens For Decolonization -] 1 applic TP HS bottle 10/23/18 Heparin - 5,000 unit SQ TID vial 10/23/18 Heparin - 5,000 unit SQ TID vial 10/23/18 Mupirocin Ointment [Bactroban Ointment (For Decolonization) -] 1 applic NS BID applic 10/23/18 Pantoprazole Sodium [Protonix -] 40 mg PO DAILY #30 tablet.ec 10/23/18 Vitamins (Sjr) - 1 tab PO DAILY #30 tablet 10/23/18 This patient is new to me today: No Emergency Visit: Yes ED Registration Date: 10/19/18 Care time: The patient presented to the Emergency Department on the above date and was hospitalized for further evaluation of their emergent condition. Critical Care patient: No - Discharge Referral Referred to [facility] No
[2018-10-23 15:59] VITALS: BP 132/78; PULSE 88
== END 2018-10-23 15:20 | disposition home or self-care (01) | DRG 566 ==
LOC: JER 12:23 → JERBED 17:51 → JICU 18:55 → J3W 10-21 20:36
PROVIDERS: ADMIT Internal Medicine; ATTEND Nurse Practitioner Family
DX: O24.011 Pre-existing type 1 diabetes mellitus, in pregnancy, first trimester (principal); E10.43 Type 1 diabetes mellitus with diabetic autonomic (poly)neuropathy; K31.84 Gastroparesis; R00.0 Tachycardia, unspecified; D72.829 Elevated white blood cell count, unspecified; E78.5 Hyperlipidemia, unspecified; K21.9 Gastro-esophageal reflux disease without esophagitis; D24.2 Benign neoplasm of left breast; D24.1 Benign neoplasm of right breast; O99.341 Other mental disorders complicating pregnancy, first trimester; F41.9 Anxiety disorder, unspecified; F17.210 Nicotine dependence, cigarettes, uncomplicated; E10.65 Type 1 diabetes mellitus with hyperglycemia; O21.0 Mild hyperemesis gravidarum; E10.10 Type 1 diabetes mellitus with ketoacidosis without coma; K59.00 Constipation, unspecified; Z79.4 Long term (current) use of insulin; Z3A.01 Less than 8 weeks gestation of pregnancy
CPT/HCPCS: 36415; 76705-TC; 76817-TC; 80048; 80053; 81003; 82009; 82803; 82962; 83036; 83605; 83690; 83735; 84100; 84702; 85025; 85027; 87040; 87077; 87081; 87086; 93005; 93010; 99283-25; J0131; J1644; J7030

== ENCOUNTER 2018-12-12 06:59 | Emergency (ER) | payer OTHER ==
[2018-12-12 07:25] VITALS: TEMP 98.4; BMI 19.8
[2018-12-12] MEDS ORDERED: SODIUM CHLORIDE 1,000 ML IV STA ×2 (08:37→13:14)
[2018-12-12] MEDS ORDERED: ONDANSETRON 4 MG/2 ML VIAL IVPB ONE (08:37)
[2018-12-12] MEDS ORDERED: ACETAMINOPHEN 1000 MG/100 ML VIAL (NON FORMULARY) IVPB ONE (08:37)
--- NOTE | 2018-12-12 09:03 | PDOC ---
History of Present Illness - General Chief Complaint: Nausea/Vomiting Stated Complaint: 14 WEEKS / CRAMPS Time Seen by Provider: 12/12/18 07:24 - History of Present Illness Initial Comments: 12/12/18 09:03 33 F @ 14 weeks, with h/o gastroparesis, IDDM, s/p gastric myotomy, jtube and removal, DKA, presenting with abdominal cramping and vomiting. Pt states symptoms started 3 days ago. Pt denies bloody emesis or coffee grounds emesis. States that she vomited >10 times today. Pt also endorses lower abdominal cramps but denies vaginal bleeding or discharge. Denies flank pain. Denies F/C. Pt notes that she is not taking any nausea medications but has been prescribed medical marijuana, which she has been using. Past History - Past Medical History Allergies/Adverse Reactions: Allergies Allergy/AdvReac Type Severity Reaction Status Date / Time shellfish derived Allergy Verified 12/12/18 07:22 famotidine [From Pepcid] AdvReac Verified 12/12/18 07:22 metoclopramide [From Reglan] AdvReac Verified 12/12/18 07:22 ondansetron AdvReac Verified 12/12/18 07:22 Home Medications: Ambulatory Orders Promethazine HCl [Phenergan Plain 6.25 MG/5 ML -] 5 ml PO TID 05/04/18 Clonazepam [Klonopin] 1 mg PO BID PRN 06/11/18 Dronabinol [Marinol -] 5 mg PO ONCE PRN 06/11/18 Insulin Glargine,Hum.rec.anlog [Basaglar Kwikpen U-100] 25 unit SQ BID 06/11/18 Insulin Lispro [Admelog] 100 unit SQ ASDIR PRN 06/11/18 Mirtazapine [Remeron -] 30 mg PO DAILY PRN 06/11/18 Omeprazole 40 mg PO DAILY 06/11/18 Pantoprazole Sodium [Protonix -] 40 mg PO DAILY #30 tablet.ec 10/23/18 Vitamins (Sjr) - 1 tab PO DAILY #30 tablet 10/23/18 Ondansetron [Zofran Odt -] 4 mg SL BID #14 od.tablet 12/12/18 Asthma: Yes CVA: No COPD: No DVT: No Diabetes: Yes (IDDM) GI Disorders: Yes (gastropresis) HTN: Yes Hypercholesterolemia: Yes - Surgical History Abdominal Surgery: Yes (HX OF G.TUBE) Cholecystectomy: Yes - Reproductive History Is Patient Now?: Yes - Immunization History Immunization Up to Date: Yes - Suicide/Smoking/Psychosocial Hx Smoking History: Never smoked Have you smoked in the past 12 months: Yes Number of Cigarettes Smoked Daily: 2 'Breaking Loose' booklet given: 07/10/18 Hx Alcohol Use: No Drug/Substance Use Hx: No Substance Use Type: Marijuana Hx Substance Use Treatment: No Abd/GI Specific PMHX - Complaint Specific PMHX GERD: Yes Review of Systems - Review of Systems Comments:: 12/12/18 09:51 "GENERAL/CONSTITUTIONAL: No fever or chills. No weakness. HEAD, EYES, EARS, NOSE AND THROAT: No change in vision. No ear pain or discharge. No sore throat. CARDIOVASCULAR: No chest pain, no shortness of breath, no loss of consciousness RESPIRATORY: No cough, wheezing, or hemoptysis. GASTROINTESTINAL: + nausea, vomiting, + lower abdominal cramps, no diarrhea or constipation. GENITOURINARY: No dysuria, frequency, or change in urination. MUSCULOSKELETAL: No joint or muscle swelling or pain. No neck or back pain. SKIN: No rash NEUROLOGIC: No vertigo, no change in strength/sensation. ENDOCRINE: No increased thirst. No abnormal weight change. HEMATOLOGIC/LYMPHATIC: No anemia, easy bleeding, or history of blood clots. ALLERGIC/IMMUNOLOGIC: No hives or skin allergy. *Physical Exam - Vital Signs Last Vital Signs Temp Pulse Resp BP Pulse Ox 98.4 F 105 H 16 158/108 H 100 12/12/18 07:22 12/12/18 07:22 12/12/18 07:22 12/12/18 07:22 12/12/18 07:22 - Physical Exam Comments: 12/12/18 09:51 "GENERAL: Awake, alert, and fully oriented, in no acute distress. HEAD: No signs of trauma EYES: PERRLA, EOMI, sclera anicteric, conjunctiva clear ENT: Auricles normal inspection, hearing grossly normal, nares patent, oropharynx clear without exudates. Moist mucosa NECK: Nontender, no stepoffs, Normal ROM, supple, no lymphadenopathy, JVD, or masses LUNGS: Breath sounds equal, clear to auscultation bilaterally. No wheezes, and no crackles HEART: Regular rate and rhythm, normal S1 and S2, no murmurs, rubs or gallops ABDOMEN: + suprapubic TTP, normoactive bowel sounds. No guarding, no rebound. No masses EXTREMITIES: Normal range of motion, no edema. No clubbing or cyanosis. No cords, erythema, or tenderness NEUROLOGICAL: Cranial nerves II through XII intact. 5/5 strength and sensation in all extremities, Normal speech, normal gait, normal cerebellar function SKIN: Warm, Dry, normal turgor, no rashes or lesions noted. Moderate Sedation - Procedure Monitoring Vital Signs: Procedure Monitoring Vital Signs Temperature 98.4 F 12/12/18 07:22 Pulse Rate 105 H 12/12/18 07:22 Respiratory Rate 16 12/12/18 07:22 Blood Pressure 158/108 H 12/12/18 07:22 O2 Sat by Pulse Oximetry (%) 100 12/12/18 07:22 ED Treatment Course - LABORATORY CBC & Chemistry Diagram: 12/12/18 10:30 12/12/18 10:30 - RADIOLOGY Radiology Studies Ordered: Category Date Time Status PELVIS(OTHER) US [US] Stat Ultrasound 12/12/18 08:37 Ordered TRANSVAGINAL ULTRASOUND US [US] Stat Ultrasound 12/12/18 08:36 Ordered Medical Decision Making - Medical Decision Making 12/12/18 09:51 33 F with N+V, abdominal pain. Gastroparesis vs hyperemesis gravidarum. Pt was recently admitted for DKA as well. Will check ketones and VBG. Exam notable for suprapubic TTP. Likely cramps 2/2 dehydration and vomiting. However, will evaluate with US. - Labs, ketones, VBG, lipase - Pelvic US - IVF, zofran, tylenol 12/12/18 12:48 Labs unremarkable, acetone negative, AG 15 No evidence of DKA US shows IUP with normal FHR Pt reassessed - has significant improvement in pain and nausea Now able to tolerate PO juice without vomiting. 12/12/18 14:39 Pt reassessed - now tolerating PO juice and crackers. Denies any abdominal pain at this time. Repeat abdominal exam completely benign. No tenderness. Pt is well appearing, with normal vitals. Clinically stable for DC at this time. I discussed the physical exam findings, ancillary test results and final diagnoses with the patient. I answered all of the patient's questions. The patient was satisfied with the care received and felt comfortable with the discharge plan and treatment plan. The patient agrees to follow up with the primary care physician within 24-72 hours. *DC/Admit/Observation/Transfer Diagnosis at time of Disposition: Hyperemesis gravidarum - Discharge Dispostion Disposition: HOME - Prescriptions Prescriptions: Ondansetron [Zofran Odt -] 4 mg SL BID #14 od.tablet - Referrals Referrals: Maira Oswald MD [Primary Care Provider] - - Patient Instructions Printed Discharge Instructions: DI for Hyperemesis Gravidarum Additional Instructions: Drink plenty of fluid to stay hydrated. If you experience any abdominal pain, fevers, severe nausea or vomiting, or any other concerning symptoms, return to the ER immediately. Otherwise, follow up with your OB within 1 week for further management of your nausea and vomiting. You also need to have your blood pressure re-checked by your OB, as it was slightly elevated today. Uncontrolled blood pressure can cause complications with your and eventually lead to kidney disease, heart disease, other serious illness, disability, or even . - Post Discharge Activity - Attestations Physician Attestion: 12/12/18 14:41 I, Dr. Daniel Watkins MD, attest that this document has been prepared under my direction and personally reviewed by me in its entirety. I further attest, that it accurately reflects all work, treatment, procedures and medical decision -making performed by me.
[2018-12-12] MEDS ORDERED: ONDANSETRON 4 MG/2 ML VIAL ONE (10:13)
[2018-12-12] MEDS ORDERED: ACETAMINOPHEN INJECTION 100 ML IVPB ONE (10:13)
[2018-12-12 10:18] LABS: URINE APPEARANCE CLEAR; URINE BILIRUBIN NEGATIVE (<2.0 mg/dL); URINE COLOR YELLOW; URINE GLUCOSE (UA) 3+ (NEGATIVE); URINE KETONE 2+ (NEGATIVE); URINE LEUK ESTERASE NEGATIVE (NEGATIVE); URINE NITRITE NEGATIVE (NEGATIVE); URINE PROTEIN NEGATIVE (NEGATIVE); URINE UROBILINOGEN NEGATIVE mg/dL (0.2-1.0)
[2018-12-12] MEDS ORDERED: PROMETHAZINE HCL 25 MG/1 ML VIAL IVPUSH ONE (10:49)
[2018-12-12 10:53] LABS: VENOUS PC02 50.5 mmHg (38-52); VENOUS PH 7.34 (7.32-7.42); VENOUS PO2 28.3 mmHg (28-48)
[2018-12-12 10:57] LABS: BASO % 0.1 % (0-2.0); HEMATOCRIT 43.5 % (32.4-45.2); LYMPH % 5.2 % (8-40); MCH 30.3 pg (25.7-33.7); MCHC 34.5 g/dl (32.0-36.0); MEAN CELL VOLUME 87.7 fl (80-96); MONO % 2.1 % (3.8-10.2); NEUT % 92.6 % (42.8-82.8); PLATELET COUNT 303 K/MM3 (134-434); RBC 4.96 M/mm3 (3.60-5.2); RDW 13.9 % (11.6-15.6); WHITE BLOOD COUNT 16.1 K/mm3 (4.0-10.0)
[2018-12-12] MEDS ORDERED: PROMETHAZINE HCL 25 MG/1 ML VIAL ONE (11:26)
[2018-12-12 11:37] LABS: ACETONE SERUM NEGATIVE (NEGATIVE)
[2018-12-12 12:16] LABS: ALBUMIN 4.2 g/dl (3.4-5.0); ALK PHOS 96 U/L (45-117); ANION GAP 15 MMOL/L (8-16); BLOOD UREA NITROGEN 15 mg/dL (7-18); CALCIUM 9.3 mg/dL (8.5-10.1); CHLORIDE 98 mmol/L (98-107); CO2 23 mmol/L (21-32); CREATININE 0.8 mg/dL (0.55-1.3); LIPASE 114 U/L (73-393); POTASSIUM 4.5 mmol/L (3.5-5.1); SGOT/AST 35 U/L (15-37); SGPT/ALT 36 U/L (13-61); SODIUM 135 mmol/L (136-145); TOT PROT 8.3 g/dl (6.4-8.2)
[2018-12-12 12:18] LABS: GLUCOSE,RANDOM 314 mg/dL (74-106)
[2018-12-12 13:30] LABS: ANISOCYTOSIS 0; MACROCYTOSIS 0; PLATELET ESTIMATE NORMAL
[2018-12-12 14:43] VITALS: BP 148/88; PULSE 100
--- NOTE | 2018-12-12 16:16 | EKG ---
Test Reason : Blood Pressure : / mmHG Vent. Rate : 106 BPM Atrial Rate : 106 BPM P-R Int : 142 ms QRS Dur : 070 ms QT Int : 362 ms P-R-T Axes : 080 068 057 degrees QTc Int : 480 ms SINUS TACHYCARDIA LEFT ATRIAL ENLARGEMENT BORDERLINE ECG WHEN COMPARED WITH ECG OF 19-OCT-2018 13:03, NO SIGNIFICANT CHANGE WAS FOUND Confirmed by MD RENEE, BEKAH ([id number]) on 12/12/2018 4:16:24 PM Referred By: Confirmed By:BEKAH DURAN MD
== END 2018-12-12 16:02 | disposition home or self-care (01) ==
LOC: JER 06:59
PROC: 3E0337Z Introduction of Electrolytic and Water Balance Substance into Peripheral Vein, Percutaneous Approach (ICD-10-PCS; principal; 2018-12-12)
PROC: 3E033GC Introduction of Other Therapeutic Substance into Peripheral Vein, Percutaneous Approach (ICD-10-PCS; 2018-12-12)
PROC: 3E033GC Introduction of Other Therapeutic Substance into Peripheral Vein, Percutaneous Approach (ICD-10-PCS; 2018-12-12)
DX: O26.891 Other specified pregnancy related conditions, first trimester (principal); O21.0 Mild hyperemesis gravidarum; Z3A.13 13 weeks gestation of pregnancy; O24.911 Unspecified diabetes mellitus in pregnancy, first trimester; O16.1 Unspecified maternal hypertension, first trimester; O99.611 Diseases of the digestive system complicating pregnancy, first trimester; K92.89 Other specified diseases of the digestive system; O99.511 Diseases of the respiratory system complicating pregnancy, first trimester; O99.281 Endocrine, nutritional and metabolic diseases complicating pregnancy, first trimester; Z79.4 Long term (current) use of insulin
CPT/HCPCS: 36415; 76801-TC; 80053; 81003; 82009; 82803; 83690; 84702; 85025; 87086; 93005; 93010; 96361; 96374; 96375; 99283-25; J0131; J7030

== ENCOUNTER 2018-12-13 18:33 | Emergency (ER) | payer OTHER ==
[2018-12-13] MEDS ORDERED: SODIUM CHLORIDE 1,000 ML IV STA (18:42)
--- NOTE | 2018-12-13 18:44 | PDOC ---
Rapid Medical Evaluation Chief Complaint: Pain, Acute Time Seen by Provider: 12/13/18 18:41 Medical Evaluation: Allergies Allergy/AdvReac Type Severity Reaction Status Date / Time shellfish derived Allergy Verified 12/12/18 07:22 famotidine [From Pepcid] AdvReac Verified 12/12/18 07:22 metoclopramide [From Reglan] AdvReac Verified 12/12/18 07:22 ondansetron AdvReac Verified 12/12/18 07:22 12/13/18 18:42 I performed a brief in-person evaluation of this patient. Chief complaint is: 14 wks , gastroparesis, intractable n/v, syncopal episode. Dr. Uribe is OB. Pertinent physical exam findings include: Dry mucous membranes. Alert and oriented but appears weak. I have ordered the following: Basic labs, EKG, IV fluids. Patient will proceed to the ED for further evaluation. Discharge Disposition - Diagnosis Vomiting, Syncope - Discharge Dispostion Condition at time of disposition: Stable - Referrals - Patient Instructions - Post Discharge Activity
[2018-12-13 18:45] VITALS: BP 123/83; PULSE 135; TEMP 97.7; BMI 19.8
[2018-12-13 20:16] LABS: BASO % 0.3 % (0-2.0); LYMPH % 9.8 % (8-40); MCH 30.1 pg (25.7-33.7); MEAN CELL VOLUME 88.6 fl (80-96); MEAN PLT VOLUME 9.1 fl (7.5-11.1); MONO % 7.3 % (3.8-10.2); NEUT % 82.6 % (42.8-82.8); PLATELET COUNT 302 K/MM3 (134-434); RBC 4.96 M/mm3 (3.60-5.2); RDW 13.9 % (11.6-15.6); WHITE BLOOD COUNT 14.2 K/mm3 (4.0-10.0)
[2018-12-13 20:27] LABS: URINE APPEARANCE CLEAR; URINE BILIRUBIN NEGATIVE (<2.0 mg/dL); URINE COLOR STRAW; URINE GLUCOSE (UA) 3+ (NEGATIVE); URINE KETONE 1+ (NEGATIVE); URINE LEUK ESTERASE NEGATIVE (NEGATIVE); URINE NITRITE NEGATIVE (NEGATIVE); URINE PROTEIN NEGATIVE (NEGATIVE); URINE UROBILINOGEN NEGATIVE mg/dL (0.2-1.0)
--- NOTE | 2018-12-13 20:31 | PDOC ---
Attending Attestation - HPI HPI: 12/13/18 21:02 The patient is a 33-year-old female, at 14 weeks, with past medical history of gastroparesis, IDDM, s/p gastric myotomy, g-tube and removal, DKA, presenting with abdominal pain and vomiting. Boyfriend is at bedside and reports that patient took promethazine 1 hour prior to arrival and since then has been altered. He states that the patient was leaning against the bed at home and passed out, hitting the RT side of her head against the floor. The patient has not been able to tolerate any solids or fluids. ENTERPRISE DATA ARCHITECT: Dr. Uribe - Physicial Exam PE: 12/13/18 21:05 Agree with resident's exam. <Kayla Durham - Last Filed: 12/13/18 21:05> - Resident Resident Name: Aundrea Montez - ED Attending Attestation I have performed the following: I have examined & evaluated the patient, The case was reviewed & discussed with the resident, I agree w/resident's findings & plan - Medical Decision Making 12/14/18 00:00 33-year-old female with decreased by mouth intake for several days and a witnessed vasovagal episode by her Patient is lethargic status post a dose of promethazine which her states is normal for her She has a long history of vomiting secondary to gastroparesis and is currently 14 weeks' gestational age Patient has some upper abdominal cramping which she states she frequently has with these symptoms related to her gastroparesis as well Patient given lactated Ringer's 2 L in the emergency department Initial labs showed significant hyperkalemia as well as elevated blood sugar and hyponatremia Repeat labs are improved with only a mildly elevated blood glucose On reevaluation patient is awake alert and ambulating on her own stating she feels much better and feels like she can go home In regards to patient's syncopal episode she did sustain mild trauma to the right scalp, there are no outward signs of injury on exam, head injury was discussed with both the patient and her significant other at the bedside, they' re refusing CT scan at this time stating based on the force of her fall they do not believe it is necessary Plan is for discharge if tolerating by mouth Hospitalist service advised 12/14/18 00:02 <Karen Pierre - Last Filed: 12/14/18 00:03> Attestations - Attestations 12/13/18 21:06 Documentation prepared by Kayla Durham, acting as medical territory manager for Karen Pierre DO. <Kayla Durham - Last Filed: 12/13/18 21:05>
[2018-12-13] MEDS ORDERED: LACTATED RINGERS SOLUTION 1000 ML INFUS.BAG IV ONE (20:48)
[2018-12-13 21:12] LABS: ALBUMIN 3.9 g/dl (3.4-5.0); ALK PHOS 93 U/L (45-117); ANION GAP 9 MMOL/L (8-16); BILIRUBIN,TOTAL 1.1 mg/dL (0.2-1); BLOOD UREA NITROGEN 17 mg/dL (7-18); CALCIUM 8.9 mg/dL (8.5-10.1); CHLORIDE 94 mmol/L (98-107); CO2 26 mmol/L (21-32); SGOT/AST 138 U/L (15-37); SGPT/ALT 41 U/L (13-61); SODIUM 128 mmol/L (136-145); TOT PROT 9.2 g/dl (6.4-8.2)
[2018-12-13 21:13] LABS: GLUCOSE,RANDOM 336 mg/dL (74-106); POTASSIUM 7.4 mmol/L (3.5-5.1)
--- NOTE | 2018-12-13 21:39 | PDOC ---
History of Present Illness - History of Present Illness Initial Comments: 12/13/18 21:36 The patient is a 33 year old female at 14 weeks gestation and with a PMH of IDDM, Gastroparesis, s/p gastric myotomy (2018), G tube placement and removal (2018) and DKA who presents to our ED c/o abdominal pain. at beside assists in history. Pain is diffuse, non-qualifiable, constant and patient has been unable to tolerate PO intake for the last [address] Uribe and states her last appointment showed no concerning findings. At presentation patient is drowsy but arousable. reports patient was sitting up against a bedpost c/o pain when she fell over hitting the Right side of her head against the floor. No LOC, no vomiting. Allergy: Famotidine, Metoclopramide, Odansetron OB-Plane Tender: Dr. Uribe <Aundrea Montez - Last Filed: 12/13/18 23:20> <Karen Pierre - Last Filed: 12/13/18 23:49> - General Chief Complaint: Pain, Acute Stated Complaint: STOMACH PAIN/14 WKS Time Seen by Provider: 12/13/18 18:41 Past History - Past Medical History Asthma: Yes CVA: No COPD: No DVT: No Diabetes: Yes (IDDM) GI Disorders: Yes (gastropresis) HTN: Yes Hypercholesterolemia: Yes - Surgical History Abdominal Surgery: Yes (HX OF G.TUBE) Cholecystectomy: Yes - Immunization History Immunization Up to Date: Yes - Suicide/Smoking/Psychosocial Hx Smoking History: Former smoker Have you smoked in the past 12 months: No Number of Cigarettes Smoked Daily: 2 Information on smoking cessation initiated: No 'Breaking Loose' booklet given: 07/10/18 Hx Alcohol Use: No Drug/Substance Use Hx: No Substance Use Type: Marijuana Hx Substance Use Treatment: No <Aundrea Montez - Last Filed: 12/13/18 23:20> <Karen Pierre - Last Filed: 12/13/18 23:49> - Past Medical History Allergies/Adverse Reactions: Allergies Allergy/AdvReac Type Severity Reaction Status Date / Time shellfish derived Allergy Verified 12/12/18 07:22 famotidine [From Pepcid] AdvReac Verified 12/12/18 07:22 metoclopramide [From Reglan] AdvReac Verified 12/12/18 07:22 ondansetron AdvReac Verified 12/12/18 07:22 Home Medications: Ambulatory Orders Promethazine HCl [Phenergan Plain 6.25 MG/5 ML -] 5 ml PO TID 05/04/18 Clonazepam [Klonopin] 1 mg PO BID PRN 06/11/18 Dronabinol [Marinol -] 5 mg PO ONCE PRN 06/11/18 Insulin Glargine,Hum.rec.anlog [Basaglar Kwikpen U-100] 25 unit SQ BID 06/11/18 Insulin Lispro [Admelog] 100 unit SQ ASDIR PRN 06/11/18 Mirtazapine [Remeron -] 30 mg PO DAILY PRN 06/11/18 Omeprazole 40 mg PO DAILY 06/11/18 Pantoprazole Sodium [Protonix -] 40 mg PO DAILY #30 tablet.ec 10/23/18 Vitamins (Sjr) - 1 tab PO DAILY #30 tablet 10/23/18 Ondansetron [Zofran Odt -] 4 mg SL BID #14 od.tablet 12/12/18 Review of Systems - Review of Systems Constitutional: No: Chills, Fever HEENTM: No: Recent change in vision, Throat Pain Respiratory: No: Cough, Shortness of Breath Cardiac (ROS): No: Chest Pain, Lightheadedness, Palpitations, Syncope ABD/GI: Yes: Nausea, Poor Appetite, Poor Fluid Intake, Abdominal cramping. No: Vomiting <Tc,Aundrea - Last Filed: 12/13/18 23:20> *Physical Exam - Vital Signs Last Vital Signs Temp Pulse Resp BP Pulse Ox 97.7 F 135 H 16 123/83 100 12/13/18 18:41 12/13/18 18:41 12/13/18 18:41 12/13/18 18:41 12/13/18 18:41 - Physical Exam General Appearance: Yes: Nourished, Appropriately Dressed, Other (Drowsy but arousable) HEENT: positive: Normal Voice, Hearing Grossly Normal, Other (No periorbital ecchymosis, no mastoid ecchymosis). negative: TM Bulging, TM Dull, TM Erythema Neck: positive: Trachea midline, Supple Respiratory/Chest: positive: Lungs Clear, Normal Breath Sounds. negative: Labored Respiration, Rapid RR Cardiovascular: positive: S1, S2. negative: Edema, JVD, Murmur Vascular Pulses: Dorsalis-Pedis (R): 2+, Doralis-Pedis (L): 2+ Gastrointestinal/Abdominal: positive: Normal Bowel Sounds, Soft, Other. negative: Guarding, Rebound Extremity: positive: Normal Capillary Refill, Normal Inspection, Pelvis Stable Integumentary: positive: Normal Color, Dry, Warm Neurologic: positive: Fully Oriented, Alert <Aundrea Montez - Last Filed: 12/13/18 23:20> - Vital Signs Last Vital Signs Temp Pulse Resp BP Pulse Ox 97.7 F 135 H 16 123/83 100 12/13/18 18:41 12/13/18 18:41 12/13/18 18:41 12/13/18 18:41 12/13/18 18:41 <Karen Pierre - Last Filed: 12/13/18 23:49> Moderate Sedation - Procedure Monitoring Vital Signs: Procedure Monitoring Vital Signs Temperature 97.7 F 12/13/18 18:41 Pulse Rate 135 H 12/13/18 18:41 Respiratory Rate 16 12/13/18 18:41 Blood Pressure 123/83 12/13/18 18:41 O2 Sat by Pulse Oximetry (%) 100 12/13/18 18:41 <TcAundrea - Last Filed: 12/13/18 23:20> - Procedure Monitoring Vital Signs: Procedure Monitoring Vital Signs Temperature 97.7 F 12/13/18 18:41 Pulse Rate 135 H 12/13/18 18:41 Respiratory Rate 16 12/13/18 18:41 Blood Pressure 123/83 12/13/18 18:41 O2 Sat by Pulse Oximetry (%) 100 12/13/18 18:41 <Karen Pierre - Last Filed: 12/13/18 23:49> Heart Score/ECG Review - ECG Impressions Comment:: 12/13/18 22:47 Sinus Tachycardia (HR 101) no CYNDI/STD/TWI, good R wave progression V1-V6 <Aundrea Montez - Last Filed: 12/13/18 23:20> ED Treatment Course - LABORATORY CBC & Chemistry Diagram: 12/13/18 19:37 12/13/18 22:00 - ADDITIONAL ORDERS Additional order review: Laboratory Results 12/13/18 12/13/18 12/13/18 20:49 20:00 19:52 Sodium 128 L Potassium 7.4 H* Chloride 94 L Carbon Dioxide 26 Anion Gap 9 BUN 17 Creatinine 1.0 Creat Clearance w eGFR > 60 POC Glucometer 212.36537 Random Glucose 336 H* Calcium 8.9 Magnesium Total Bilirubin 1.1 H AST 138 H ALT 41 Alkaline Phosphatase 93 Total Protein 9.2 H Albumin 3.9 Urine Color Straw Urine Appearance Clear Urine pH 5.0 Ur Specific Herman 1.033 Urine Protein Negative Urine Glucose (UA) 3+ H Urine Ketones 1+ H Urine Blood Negative Urine Nitrite Negative Urine Bilirubin Negative Urine Urobilinogen Negative Ur Leukocyte Esterase Negative 12/13/18 19:37 Sodium Potassium Chloride Carbon Dioxide Anion Gap BUN Creatinine Creat Clearance w eGFR POC Glucometer Random Glucose Calcium Magnesium 2.4 Total Bilirubin AST ALT Alkaline Phosphatase Total Protein Albumin Urine Color Urine Appearance Urine pH Ur Specific Herman Urine Protein Urine Glucose (UA) Urine Ketones Urine Blood Urine Nitrite Urine Bilirubin Urine Urobilinogen Ur Leukocyte Esterase 12/13/18 12/13/18 20:49 19:37 RBC 4.96 MCV 88.6 MCHC 34.0 RDW 13.9 MPV 9.1 Neutrophils % 82.6 Lymphocytes % 9.8 D Monocytes % 7.3 D Eosinophils % 0.0 Basophils % 0.3 POC Glucometer 212.90167 <Aundrea Montez - Last Filed: 12/13/18 23:20> - LABORATORY CBC & Chemistry Diagram: 12/13/18 19:37 12/13/18 22:00 - ADDITIONAL ORDERS Additional order review: Laboratory Results 12/13/18 12/13/18 12/13/18 22:00 20:49 20:00 Sodium 136 Potassium 3.4 L Chloride 99 Carbon Dioxide 27 Anion Gap 11 BUN 14 Creatinine 0.6 Creat Clearance w eGFR > 60 POC Glucometer 212.27174 Random Glucose 229 H Calcium 8.8 Magnesium Total Bilirubin 1.0 AST 17 ALT 26 Alkaline Phosphatase 81 Total Protein 7.0 Albumin 3.6 Urine Color Straw Urine Appearance Clear Urine pH 5.0 Ur Specific Herman 1.033 Urine Protein Negative Urine Glucose (UA) 3+ H Urine Ketones 1+ H Urine Blood Negative Urine Nitrite Negative Urine Bilirubin Negative Urine Urobilinogen Negative Ur Leukocyte Esterase Negative 12/13/18 12/13/18 19:52 19:37 Sodium 128 L Potassium 7.4 H* Chloride 94 L Carbon Dioxide 26 Anion Gap 9 BUN 17 Creatinine 1.0 Creat Clearance w eGFR > 60 POC Glucometer Random Glucose 336 H* Calcium 8.9 Magnesium 2.4 Total Bilirubin 1.1 H AST 138 H ALT 41 Alkaline Phosphatase 93 Total Protein 9.2 H Albumin 3.9 Urine Color Urine Appearance Urine pH Ur Specific Herman Urine Protein Urine Glucose (UA) Urine Ketones Urine Blood Urine Nitrite Urine Bilirubin Urine Urobilinogen Ur Leukocyte Esterase 12/13/18 12/13/18 20:49 19:37 RBC 4.96 MCV 88.6 MCHC 34.0 RDW 13.9 MPV 9.1 Neutrophils % 82.6 Lymphocytes % 9.8 D Monocytes % 7.3 D Eosinophils % 0.0 Basophils % 0.3 POC Glucometer 212.34600 - Medications Given in the ED: ED Medications Discontinued Medications Generic Name Dose Route Start Last Admin Trade Name Freq PRN Reason Stop Dose Admin Insulin Human Regular 10 units 12/13/18 21:49 12/13/18 22:21 Novolin R Vial *For Ivpush Or Iv Drip Only* SQ 12/13/18 21:50 10 units ONCE ONE Administration <Karen Pierre Manuela - Last Filed: 12/13/18 23:49> Medical Decision Making - Medical Decision Making 12/13/18 21:39 33 year old female presents w/abdominal pain. H/o evaluation 3 days previous for gastroparesis. At presentation patient drowsy but arousable. BS 212. VS unremarkable. Belly soft, (+) bowel sounds. No mastoid, periorbital ecchymosis. As patient has known drowsiness to Promethazine, will refrain from Head CT at this time. Basic lab, Serum Acetone, VBG pending. 12/13/18 21:48 Critical lab value K+ 7, Lab called, specimen possibly hemolyzed EKG in triage showed Sinus Tachycardia - no peaked T waves, HI prolongation Repeat EKG pending Repeat CMP pending 12/13/18 22:12 Paged hospitalist for admission VBG, Serum Acetone pending 12/13/18 22:17 Repeat EKG show no concerning changes for hyperkalemia; tachycardia resolved 12/13/18 22:22 S/p 10 units Insulin 12/13/18 22:26 Case d/w Dr. Boss (Resident) will evaluate patient @ bedside 12/13/18 22:48 Repeat BS 212 s/p 10 units Insulin 2nd L IV Lactated Ringer hanging Patient reassessed @ bedside. Remains drowsy but more awake than at presentation, repeat belly exam shows TPP w/o peritoneal signs. Dr. Boss @ bedside - agrees with admission. Awaiting Hospitalist Attending evaluation. Patient signed out to Dr. Pierre. <Aundrea Montez - Last Filed: 12/13/18 23:20> *DC/Admit/Observation/Transfer <Aundrea Montez - Last Filed: 12/13/18 23:20> - Discharge Dispostion Decision to Admit order: No <Karen Pierre - Last Filed: 12/13/18 23:49> Diagnosis at time of Disposition: Dehydration, Diabetic gastroparesis Vomiting Qualifiers: Vomiting type: unspecified Vomiting Intractability: non-intractable Nausea presence: with nausea Qualified Code(s): R11.2 - Nausea with vomiting, unspecified Syncope Qualifiers: Syncope type: vasovagal syncope Qualified Code(s): R55 - Syncope and collapse Qualifiers: Weeks of gestation: 14 weeks Qualified Code(s): Z3A.14 - 14 weeks gestation of - Discharge Dispostion Disposition: HOME Condition at time of disposition: Stable - Referrals Referrals: Maira Oswald MD [Primary Care Provider] - Sara Uribe DO [Staff Physician] - - Patient Instructions Printed Discharge Instructions: DI for Nausea -- Adult, DI for Vomiting -- Adult Additional Instructions: Be sure to drink plenty of fluids, follow-up with your [employer] as well as her primary care physician in the next 1-2 days. Return to the emergency department if your condition worsens in any way. Irregular to check your blood sugar regularly. - Post Discharge Activity
[2018-12-13] MEDS ORDERED: INSULIN REGULAR HUMAN 100 UNITS/ML *VIAL SQ ONE (21:49)
[2018-12-13] MEDS ORDERED: INSULIN REGULAR HUMAN 100 UNITS/ML *VIAL ONE (22:18)
[2018-12-13 23:16] LABS: ALBUMIN 3.6 g/dl (3.4-5.0); ALK PHOS 81 U/L (45-117); ANION GAP 11 MMOL/L (8-16); BLOOD UREA NITROGEN 14 mg/dL (7-18); CALCIUM 8.8 mg/dL (8.5-10.1); CHLORIDE 99 mmol/L (98-107); CO2 27 mmol/L (21-32); CREATININE 0.6 mg/dL (0.55-1.3); GLUCOSE,RANDOM 229 mg/dL (74-106); POTASSIUM 3.4 mmol/L (3.5-5.1); SGOT/AST 17 U/L (15-37); SGPT/ALT 26 U/L (13-61); SODIUM 136 mmol/L (136-145)
[2018-12-14 11:22] LABS: ACETONE SERUM NEGATIVE (NEGATIVE)
--- NOTE | 2018-12-14 12:21 | EKG ---
Test Reason : Blood Pressure : / mmHG Vent. Rate : 101 BPM Atrial Rate : 101 BPM P-R Int : 144 ms QRS Dur : 070 ms QT Int : 356 ms P-R-T Axes : 074 061 056 degrees QTc Int : 461 ms SINUS TACHYCARDIA POSSIBLE LEFT ATRIAL ENLARGEMENT LEFT VENTRICULAR HYPERTROPHY ABNORMAL ECG WHEN COMPARED WITH ECG OF 12-DEC-2018 11:39, NO SIGNIFICANT CHANGE WAS FOUND Confirmed by KATIE VALDIVIA, MALIK ([id number]) on 12/14/2018 12:21:28 PM Referred By: Confirmed By:MALIK WILSON MD
--- NOTE | 2018-12-16 13:19 | EKG ---
Test Reason : Blood Pressure : / mmHG Vent. Rate : 095 BPM Atrial Rate : 095 BPM P-R Int : 144 ms QRS Dur : 068 ms QT Int : 380 ms P-R-T Axes : 081 077 056 degrees QTc Int : 477 ms NORMAL SINUS RHYTHM NORMAL ECG WHEN COMPARED WITH ECG OF 13-DEC-2018 19:28, NO SIGNIFICANT CHANGE WAS FOUND Confirmed by KRISTEL HAQUE MD ([id number]) on 12/16/2018 1:19:10 PM Referred By: Confirmed By:KRISTEL HAQUE MD
== END 2018-12-14 00:38 | disposition home or self-care (01) ==
LOC: JER 18:33
PROC: 3E013VG Introduction of Insulin into Subcutaneous Tissue, Percutaneous Approach (ICD-10-PCS; principal; 2018-12-13)
DX: O26.892 Other specified pregnancy related conditions, second trimester (principal); Z3A.14 14 weeks gestation of pregnancy; R55 Syncope and collapse; R11.2 Nausea with vomiting, unspecified; E86.0 Dehydration; E11.43 Type 2 diabetes mellitus with diabetic autonomic (poly)neuropathy; K31.84 Gastroparesis
CPT/HCPCS: 36415; 80053; 81003; 82009; 82962; 83735; 85025; 93005; 93010; 99282-25; 99284-25

== ENCOUNTER 2019-01-22 05:39 | Inpatient (IN) | payer OTHER ==
--- NOTE | 2019-01-22 05:56 | PDOC ---
Attending Attestation - Resident Resident Name: Mandy Pickett - ED Attending Attestation I have performed the following: I have examined & evaluated the patient, The case was reviewed & discussed with the resident, I agree w/resident's findings & plan - HPI HPI: 01/22/19 05:55 Pt comes with diffuse abd pain. She was initially sent to L+D, as she tells us that she is 5 months and that her due date is mid May. Pt was found to be 20 weeks with a good FHT, no vag bleed, and she was sent to the ER for abd pain. Labs were sent from upstairs. Pt has DM that is not well controlled. SHe has glc of 285. Negative acetone. - Physicial Exam PE: 01/22/19 06:22 Agree with resident exam. Pt has no flank pain . No fever. Abd pain and lower abd pain. Pt has exquisite pain, but she is jumping up and down and pain is not consistent with rebound pain. - Medical Decision Making 01/22/19 06:24 Pt's official sonogram demonstrate air btwn the placenta and the uterus - consistent with abruption. I spoke to COLLATERAL ANALYST and she will go back to L+D.
[2019-01-22 06:29] VITALS: BMI 16.7
--- NOTE | 2019-01-22 06:35 | PDOC ---
History of Present Illness - General Chief Complaint: Pain Stated Complaint: ABD PAIN Time Seen by Provider: 01/22/19 05:54 History Source: Patient Exam Limitations: Clinical Condition (Pt not wanting to answer questions due to pain) - History of Present Illness Initial Comments: Pt is a 33 yo F, , with PMH of poorly controlled IDDM and gastroparesis/DKA episodes, who is presenting via EMS with complaints of diffuse abdominal pain. Pt has been seen at [facility] for similar complaints throughout this , with negative work-up. Pt states the pain "started earlier today" and is diffuse. She cannot describe the quality, but the pain does not radiate. The pt denies any urinary symptoms, and states she had a normal BM earlier today. The pain has been associated with nausea and vomiting, which is similar to prior episodes of gastroparesis. She denies any back cramping, vaginal bleeding or passage of clots/ tissue, fevers/chills, or vaginal discharge. Pt does not answer any further ROS questions due to pain. Social: THC use. Denies cigarettes or drinking alcohol. Pt denies any recent travel or sick contacts. Surgical: gastroparesis/myotomy + prior G-tube. Family: no relevant history. 01/22/19 06:36 Past History - Travel Traveled outside of the country in the last 30 days: No Close contact w/someone who was outside of country & ill: No - Past Medical History Allergies/Adverse Reactions: Allergies Allergy/AdvReac Type Severity Reaction Status Date / Time shellfish derived Allergy Verified 12/12/18 07:22 famotidine [From Pepcid] AdvReac Verified 12/12/18 07:22 metoclopramide [From Reglan] AdvReac Verified 12/12/18 07:22 ondansetron AdvReac Verified 12/12/18 07:22 Home Medications: Ambulatory Orders Promethazine HCl [Phenergan Plain 6.25 MG/5 ML -] 5 ml PO TID 05/04/18 Clonazepam [Klonopin] 1 mg PO BID PRN 06/11/18 Dronabinol [Marinol -] 5 mg PO ONCE PRN 06/11/18 Insulin Glargine,Hum.rec.anlog [Aliciaagllobito Lomeli U-100] 25 unit SQ BID 06/11/18 Insulin Lispro [Admelog] 100 unit SQ ASDIR PRN 06/11/18 Mirtazapine [Remeron -] 30 mg PO DAILY PRN 06/11/18 Omeprazole 40 mg PO DAILY 06/11/18 Pantoprazole Sodium [Protonix -] 40 mg PO DAILY #30 tablet.ec 10/23/18 Vitamins (Sjr) - 1 tab PO DAILY #30 tablet 10/23/18 Ondansetron [Zofran Odt -] 4 mg SL BID #14 od.tablet 12/12/18 Asthma: Yes CVA: No COPD: No DVT: No Diabetes: Yes (IDDM) GI Disorders: Yes (gastropresis) HTN: Yes Hypercholesterolemia: Yes - Surgical History Abdominal Surgery: Yes (HX OF G.TUBE) Cholecystectomy: Yes - Immunization History Immunization Up to Date: Yes - Suicide/Smoking/Psychosocial Hx Smoking History: Unknown if ever smoked Have you smoked in the past 12 months: No Number of Cigarettes Smoked Daily: 2 'Breaking Loose' booklet given: 07/10/18 Hx Alcohol Use: No Drug/Substance Use Hx: No Substance Use Type: Marijuana Hx Substance Use Treatment: No Review of Systems - Review of Systems Able to Perform ROS?: No (non-cooperative) *Physical Exam - Vital Signs Last Vital Signs Temp Pulse Resp BP Pulse Ox 98.6 F 88 19 159/82 100 01/22/19 05:40 01/22/19 05:40 01/22/19 05:40 01/22/19 05:40 01/22/19 05:40 - Physical Exam Comments: Vitals stable, pt afebrile. Pt appears anxious and is refusing to sit down on the bed, thin body habitus. PE showed pt alert and oriented. manager hvac generally intact, muscular strength and sensation intact. Eyes PERRLA, EOMI. Oropharynx without erythema or exudates, no LAD b/l. No nasal congestion, hearing intact. Clear heart sounds, S1/S2, no JVD, b/l pedal edema, or heart murmur. Clear lung sounds, no respiratory distress, wheezes, crackles, or accessory muscle use. No abdominal or CVA tenderness to palpation, no rebound, no guarding. Fundus appears below the level of the umbilicus. Abdomen soft, non-distended, and with normoactive bowel sounds. No obvious vaginal bleeding. Skin without jaundice or rash. Exam also done by L&D, which showed ~20 weeks IUP with good heart tones. No vaginal bleeding on pelvic exam done in L&D. 01/22/19 06:35 Moderate Sedation - Procedure Monitoring Vital Signs: Procedure Monitoring Vital Signs Temperature 98.6 F 01/22/19 05:40 Pulse Rate 88 01/22/19 05:40 Respiratory Rate 19 01/22/19 05:40 Blood Pressure 159/82 01/22/19 05:40 O2 Sat by Pulse Oximetry (%) 100 01/22/19 05:40 Medical Decision Making - Medical Decision Making Pt was seen at bedside, also will be seen by attending Dr. Parkinson. Pt presenting via EMS with complaints of diffuse abdominal pain. Pt has been seen at [facility] for similar complaints throughout this , with negative work-up. Pt states the pain "started earlier today" and is diffuse. She cannot describe the quality , but the pain does not radiate. The pt denies any urinary symptoms, and states she had a normal BM earlier today. The pain has been associated with nausea and vomiting, which is similar to prior episodes of gastroparesis. She denies any back cramping, vaginal bleeding or passage of clots/ tissue, fevers/chills , or vaginal discharge. Pt does not answer any further ROS questions due to pain. Vitals stable, pt afebrile. Pt appears anxious and is refusing to sit down on the bed, thin body habitus. PE showed pt alert and oriented. manager hvac generally intact, muscular strength and sensation intact. Eyes PERRLA, EOMI. Oropharynx without erythema or exudates, no LAD b/l. No nasal congestion, hearing intact. Clear heart sounds, S1/S2, no JVD, b/l pedal edema, or heart murmur. Clear lung sounds, no respiratory distress, wheezes, crackles, or accessory muscle use. No abdominal or CVA tenderness to palpation, no rebound, no guarding. Fundus appears below the level of the umbilicus. Abdomen soft, non-distended, and with normoactive bowel sounds. No obvious vaginal bleeding. Skin without jaundice or rash. Exam also done by L&D, which showed ~20 weeks IUP with good heart tones. No vaginal bleeding on pelvic exam done in L&D. Considering placental abruption vs worsening gastroparesis/obstruction vs placenta previa/accreta. Work-up showed BG in 200s, acetone negative, ketones +1. UDS positive for THC. Providing 1 L IV NS and 1 g ofirmev. Will continue to reassess pt and monitor for symptomatic improvement. US called, stated there was heterogenous air between uterus and endometrium, concern for placental abruption. Called L&D, who will accept the pt back for further monitoring and possible intervention. 01/22/19 06:28 *DC/Admit/Observation/Transfer Diagnosis at time of Disposition: Abdominal pain affecting - Discharge Dispostion Condition at time of disposition: Stable Decision to Admit order: No - Referrals Referrals: Maira Oswald MD [Primary Care Provider] - - Patient Instructions - Post Discharge Activity
[2019-01-22] MEDS ORDERED: PROMETHAZINE HCL 25 MG/1 ML VIAL ONE ×3 (07:24→15:24)
[2019-01-22] MEDS: PROMETHAZINE HCL 25 MG/1 ML VIAL IVPB SCH ×4 (07:25→20:40)
[2019-01-22] MEDS ORDERED: PROMETHAZINE HCL 25 MG/1 ML VIAL IVPB ONE (08:30)
[2019-01-22] MEDS ORDERED: LACTATED RINGERS SOLUTION 1,000 ML IV ONE (08:30)
[2019-01-22] MEDS ORDERED: PROMETHAZINE HCL 25 MG/1 ML VIAL IVPB SCH (08:45)
[2019-01-22 08:56] LABS: BASO % 0.2 % (0-2.0); EOS % 0.1 % (0-4.5); HEMATOCRIT 40.6 % (32.4-45.2); HEMOGLOBIN 13.8 GM/dL (10.7-15.3); LYMPH % 7.4 % (8-40); MCH 30.3 pg (25.7-33.7); MCHC 34.1 g/dl (32.0-36.0); MEAN CELL VOLUME 88.9 fl (80-96); MEAN PLT VOLUME 8.4 fl (7.5-11.1); MONO % 3.4 % (3.8-10.2); NEUT % 88.9 % (42.8-82.8); PLATELET COUNT 268 K/MM3 (134-434); RBC 4.57 M/mm3 (3.60-5.2); RDW 13.5 % (11.6-15.6); WHITE BLOOD COUNT 13.1 K/mm3 (4.0-10.0)
[2019-01-22 09:23] LABS: INR 0.92 (0.83-1.09); PROTHROMBIN TIME (PATIENT) 10.9 SEC (9.7-13.0)
[2019-01-22 09:26] LABS: ACTIVATED PTT 27.3 SECONDS (25.2-36.5)
[2019-01-22 09:26] LABS: ALBUMIN 3.7 g/dl (3.4-5.0); ALK PHOS 87 U/L (45-117); AMYLASE 63 U/L (25-115); ANION GAP 13 MMOL/L (8-16); BILIRUBIN,DIRECT 0.2 mg/dL (0.0-0.2); BILIRUBIN,TOTAL 0.6 mg/dL (0.2-1); BLOOD UREA NITROGEN 7 mg/dL (7-18); CALCIUM 8.7 mg/dL (8.5-10.1); CHLORIDE 99 mmol/L (98-107); CO2 23 mmol/L (21-32); CREATININE 0.6 mg/dL (0.55-1.3); GLUCOSE,RANDOM 266 mg/dL (74-106); LIPASE 108 U/L (73-393); POTASSIUM 3.3 mmol/L (3.5-5.1); SGOT/AST 14 U/L (15-37); SGPT/ALT 25 U/L (13-61); SODIUM 135 mmol/L (136-145); TOT PROT 7.7 g/dl (6.4-8.2)
--- NOTE | 2019-01-22 09:36 | CONSULT ---
Consultation: REQUESTING PROVIDER: Dr. Andrade PCP: Maira Guerrier OBGYN: Dr. Sara Uribe GI: Dr. Kedar Thomas HISTORY OF PRESENT ILLNESS: 33yo F with significant h/o IDDM (dx'd 2009; poorly controlled) and gastroparesis (2017 dx) who presents today with nausea, diffuse abdominal pain and episodes of lightheadedness associated with poor PO intake for the past day. She also endorses 2 episodes of NB/NB vomiting. Overnight pt became lightheaded alongside of worsening abdominal pain and boyfriend called EMS to seek further evaluation. Pt reports ongoing abdominal tenderness which she struggles to qualify besides diffuse constant pain. Pt reports BM last night with normal quality and character without any melena. Pt and boyfriend report that she has been consistently hospitalized due to her gastroparesis symptoms and eventually had her J-tube inserted at [facility], however had to have it removed due to infectious process. Currently pt remains in pain, however she denies any further vomiting at this point. Pt denies any headaches, shortness of breath, chest pain/discomfort, palpitations, dysuria, polyuria, cramping, vaginal complaints, back pain, neck pain, and diarrhea. Recent Travel: No PAST MEDICAL HISTORY: IDDM (Dx 2009) Gastroparesis GERD HLD Fibroadenoma of b/l breasts Anxiety PAST SURGICAL HISTORY: J-tube at [facility] 05/19/18; s/p removal / to infection Gastric myotomy Cholecystectomy Social History: Smoking: Former; quit with Alcohol: None with ; prior social Drugs: Prescribed marijuana for nausea vomiting 4 children Family History: Diabetes: Mother HTN: father REVIEW OF SYSTEMS: As per HPI PHYSICAL EXAMINATION Vital Signs - 24 hr 01/22/19 01/22/19 01/22/19 05:40 08:00 09:14 Temperature 98.6 F 98.1 F 97.7 F Pulse Rate 88 90 78 Respiratory 19 18 18 Rate Blood Pressure 159/82 150/92 144/90 O2 Sat by Pulse 100 Oximetry (%) GENERAL: Mild distress, awake, alert, and fully oriented HEENT: NC/AT, FRANCIS, dry mucosa noted, no posterior oropharynx erythema or exudates NECK: Soft, no JVD. LUNGS: CTA bilaterally. No wheezes, and no crackles. No accessory muscle use. HEART: RRR, normal S1 and S2 without murmur ABDOMEN: Soft, nondistended, tenderness equally distributed amongst all quadrants, fundus noted to at umbilicus, normoactive BS, no guarding. MUSCULOSKELETAL: No CVA tenderness. EXTREMITIES: 2+ distal pulses b/l, warm, No calf tenderness. Nonpitting ankle edema PSYCHIATRIC: Cooperative. SKIN: Warm, dry, no rashes or lesions noted. Ear and facial piercings noted without erythema surrounding sites Laboratory Results 01/22/19 01/22/19 01/22/19 07:46 08:24 08:40 WBC 13.1 H RBC 4.57 Hgb 13.8 Hct 40.6 MCV 88.9 MCH 30.3 MCHC 34.1 RDW 13.5 Plt Count 268 MPV 8.4 Absolute Neuts (auto) 11.6 H Neutrophils % 88.9 H Lymphocytes % 7.4 L D Monocytes % 3.4 L Eosinophils % 0.1 D Basophils % 0.2 Nucleated RBC % 0 PT with INR INR PTT (Actin FS) Sodium 135 L Potassium 3.3 L Chloride 99 Carbon Dioxide 23 Anion Gap 13 BUN 7 Creatinine 0.6 Creat Clearance w eGFR > 60 POC Glucometer 276 Random Glucose 266 H Calcium 8.7 Total Bilirubin 0.6 Direct Bilirubin 0.2 AST 14 L ALT 25 Alkaline Phosphatase 87 Total Protein 7.7 Albumin 3.7 Total Amylase 63 Lipase 108 Active Medications Generic Name Dose Route Start Last Admin Trade Name Freq PRN Reason Stop Dose Admin Lactated Ringer's 1,000 mls @ 250 mls/hr 01/22/19 08:30 01/22/19 07:25 Lactated Ringers Solution IV 01/22/19 12:29 250 mls/hr ONCE ONE Administration Insulin Aspart 1 vial 01/22/19 11:00 Novolog Vial Sliding Scale - SQ ACHS [facility] Protocol Insulin Detemir 20 units 01/22/19 22:00 Levemir Vial SQ BID@0700,2200 [facility] Promethazine HCl 25 mg 01/22/19 07:25 01/22/19 07:25 Phenergan Injection - IVPB 01/22/19 11:26 25 mg Q4H [facility] Administration ASSESSMENT/PLAN: Severe Diabetic Gastroparesis Hyperglycemia Intrauterine Leukocytosis Hypokalemia IDDM Anxiety GERD --Abdominal pain likely due to diabetic gastroparesis --DKA/HHS ruled out on initial laboratory results --Ultrasound for inspection of intrauterine noted; will defer to primary team ([facility] [employer]) --Cannot use Reglan due to severe reaction as reported by patient --Erythromycin for prokinetic activity is contraindicated in due to contractility of fundus --Continue Phenergan for antiemetic regiment; if continued nausea can add on one -time doses of Benedryl --GI consulted for further mgmt --Leukocytosis likely reactive to acute illness in the setting of pt being afebrile --Continue Levemir 20U SQ BID --Continue ISS --BGM ACHS --Endocrinology consulted appreciated --A1c to be added to labs FEN: Fluids: LR@250cc/hr; monitor lung examination Electrolyte abnormalities: Hypokalemia; repelete KCl IVPB x3 (can run first then continue maintenance fluids) Nutrition: NPO for now; advance as tolerated PPX: DVT - TEDs; heparin cannot be used 2/2 to Dispo: Will continue to follow. Thank you for this consultative opportunity Case to be discussed Cceil Zafar, DO - IM PGY-2
[2019-01-22] MEDS: KCL 10 MEQ IVPB 10 MEQ/100 ML INFUS.BAG IVPB SCH ×3 (10:30→12:45)
--- NOTE | 2019-01-22 10:51 | HP ---
Past Medical History - Admission Chief Complaint: Nausea & Vomiting. IUP at 19 week. Hx pf gastroparesis. Diabetes Type 1 History of Present Illness: 33yo with Type 1 Diabetes and gastroparesis (2017 dx) who presents with severe nausea & vomiting, diffuse abdominal pain and episodes of lightheadedness and toe pain She also endorses 2 episodes of NB/NB vomiting. Overnight pt became lightheaded alongside of worsening abdominal pain and boyfriend called EMS to seek further evaluation. Pt unable to maintain fluids ot meals Pt had beed admitted to ICU in Oct in DKA. Pt with Hx of J-tube and inserted at [facility] and [place] [facility] + AFM no bleeding no ROM + abd pain History Source: Patient Limitations to Obtaining History: No Limitations - Past Medical History Pulmonary: Yes: Asthma Gastrointestinal: Yes: Constipation, GERD, Other (Gastroparesis) Hepatobiliary: Yes: Cholelithiasis (remoaved by lap choly) ...: 8 ...Para: 4 ...Term: 4 ...: 0 ...Spon : 3 ...Induced : 0 ...Multiple Gestation: 0 ...LMP: 09/07/18 ... Weeks Gestation by Dates: 19.4 ...EDC by Dates: 06/14/19 Endocrine: Yes: Diabetes Mellitus (DM I since age 6) - Past Surgical History Past Surgical History: Yes: Breast Biopsy (fibroadenomas removed bilaterally), Cholecystectomy (Laparoscopic) Hx Myomectomy: No Hx Transabdominal Cerclage: No Additional Surgical History: [place] [facility] - Smoking History Smoking history: Unknown if ever smoked Have you smoked in the past 12 months: No Aproximately how many cigarettes per day: 2 - Alcohol/Substance Use Hx Alcohol Use: No History of Substance Use: reports: Marijuana (states starting marijuana after her symptoms began in august) - Social History Usual Living Arrangement: Yes: With Spouse ADL: Independent 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 History of Recent Travel: No Home Medications - Allergies Allergies/Adverse Reactions: Allergies Allergy/AdvReac Type Severity Reaction Status Date / Time shellfish derived Allergy Verified 12/12/18 07:22 famotidine [From Pepcid] AdvReac Verified 01/22/19 09:17 metoclopramide [From Reglan] AdvReac Verified 12/12/18 07:22 ondansetron AdvReac Verified 12/12/18 07:22 - Home Medications Home Medications: Ambulatory Orders Promethazine HCl [Phenergan Plain 6.25 MG/5 ML -] 5 ml PO TID 05/04/18 Insulin Glargine,Hum.rec.anlog [Basaglar Kwikpen U-100] 30 unit SQ BID 06/11/18 Insulin Lispro [Admelog] 100 unit SQ ASDIR PRN 06/11/18 Klonopin PO 01/22/19 Mirtazapine [Remeron -] PO 01/22/19 Family Disease History - Family Disease History Family Disease History: Diabetes: Mother (Alive: ), Other: Father (Alive: DM, obesity), Mother, Brother (1 brother), Sister (1 sister), Son (3, 1 with eosinophilic esophagitis), Daughter (1, healthy) Review of Systems - Review of Systems Constitutional: reports: Loss of Appetite, Malaise, Unintentional Wgt. Loss, Weakness Eyes: reports: No Symptoms HENT: reports: No Symptoms Neck: reports: No Symptoms Cardiovascular: reports: Chest Pain Respiratory: reports: No Symptoms Gastrointestinal: reports: Abdominal Pain Genitourinary: reports: No Symptoms Breasts: reports: No Symptoms Reported Musculoskeletal: reports: No Symptoms Integumentary: reports: No Symptoms Neurological: reports: No Symptoms Endocrine: reports: No Symptoms Hematology/Lymphatic: reports: No Symptoms Psychiatric: reports: No Symptoms Physical Exam - Maternity Vital Signs: Vital Signs Temperature 97.7 F 01/22/19 09:14 Pulse Rate 78 01/22/19 09:14 Respiratory Rate 18 01/22/19 09:14 Blood Pressure 144/90 01/22/19 09:14 O2 Sat by Pulse Oximetry (%) 100 01/22/19 05:40 Constitutional: Yes: Cachectic, Moderate Distress, Poor Hygeine, Thin - Abdominal Exam/OB Number of Fetuses: Single Presentation: Vertex Contractions: No Category: I - Vaginal Exam/OB Dilatation (cm): closed Amniotic Membrane Status: Intact - Physical Exam Extremities: Yes: WNL Edema: No - Labs Lab Results: CBC, BMP 01/22/19 08:40 01/22/19 08:24 Hemorrhage Risk Assessment - Risk Factors Risk Score: 1 Risk Level: Medium Risk Problem List - Problems (1) Diabetes Code(s): E11.9 - TYPE 2 DIABETES MELLITUS WITHOUT COMPLICATIONS Qualifiers: Diabetes mellitus type: type 1 (2) Abdominal pain affecting Code(s): O26.899 - OTH RELATED CONDITIONS, UNSPECIFIED TRIMESTER; R10.9 - UNSPECIFIED ABDOMINAL PAIN (3) Gastroparesis Code(s): K31.84 - GASTROPARESIS Assessment/Plan gastroparesis iup at 19.3 weeks nausea vomiting Plan Gi consult ENdo consult medical consult
[2019-01-22] MEDS ORDERED: ACETAMINOPHEN 1000 MG/100 ML VIAL (NON FORMULARY) IVPB PRN (10:59)
[2019-01-22] MEDS ORDERED: cloNIDine HCL 0.1 MG TABLET PO SCH (11:00)
--- NOTE | 2019-01-22 11:05 | CONSULT ---
Consult Consult Specialty:: ENDOCRINE Referred by:: DR.SUZANNE GREEN Reason for Consultation:: IDDM UNCONTROLLED - History of Present Illness Chief Complaint: NAUSEA VOMITING History of Present Illness: 33 yo F, , with PMH of IDDM UNCONROLLED,and gastroparesis/DKA episodes, who is presenting via EMS with complaints of diffuse abdominal pain. Pt has had recurrent episode of nausea and vomiting during this , with negative work-up. Pt states the pain "started earlier today,has recent injury to her toe and is unable to weight bear left foot.she denies cough,fever,chills or chest pain. - History Source History Provided By: Patient - Past Medical History Pulmonary: Yes: Asthma Gastrointestinal: Yes: Constipation, GERD, Other (Gastroparesis) Hepatobiliary: Yes: Cholelithiasis (remoaved by simin berrios) ...LMP: 04/29/18 ...: Yes Endocrine: Yes: Diabetes Mellitus (DM I since age 6) - Past Surgical History Past Surgical History: Yes: Breast Biopsy (fibroadenomas removed bilaterally), Cholecystectomy (Laparoscopic) - Alcohol/Substance Use Hx Alcohol Use: No History of Substance Use: reports: Marijuana (states starting marijuana after her symptoms began in august) - Smoking History Smoking history: Unknown if ever smoked Have you smoked in the past 12 months: No Aproximately how many cigarettes per day: 2 - Social History Usual Living Arrangement: Alone ADL: Independent 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 History of Recent Travel: No Home Medications - Allergies Allergies/Adverse Reactions: Allergies Allergy/AdvReac Type Severity Reaction Status Date / Time shellfish derived Allergy Verified 12/12/18 07:22 famotidine [From Pepcid] AdvReac Verified 01/22/19 09:17 metoclopramide [From Reglan] AdvReac Verified 12/12/18 07:22 ondansetron AdvReac Verified 12/12/18 07:22 - Home Medications Home Medications: Ambulatory Orders Promethazine HCl [Phenergan Plain 6.25 MG/5 ML -] 5 ml PO TID 05/04/18 Insulin Glargine,Hum.rec.anlog [Basaglar Kwikpen U-100] 30 unit SQ BID 06/11/18 Insulin Lispro [Admelog] 100 unit SQ ASDIR PRN 06/11/18 Klonopin PO 01/22/19 Mirtazapine [Remeron -] PO 01/22/19 Family Disease History - Family Disease History Family Disease History: Diabetes: Mother (Alive: ), Other: Father (Alive: DM, obesity), Mother, Brother (1 brother), Sister (1 sister), Son (3, 1 with eosinophilic esophagitis), Daughter (1, healthy) Review of Systems - Review of Systems Constitutional: reports: Unintentional Wgt. Loss, Weakness Eyes: reports: Blurred Vision HENT: reports: No Symptoms Neck: reports: No Symptoms Cardiovascular: reports: No Symptoms Respiratory: reports: No Symptoms Gastrointestinal: reports: Indigestion, Nausea Genitourinary: reports: No Symptoms Breasts: reports: No Symptoms Reported Musculoskeletal: reports: No Symptoms Neurological: reports: Weakness Endocrine: reports: Unexplained Weight Loss Physical Exam Vital Signs: Vital Signs Temperature 97.7 F 01/22/19 09:14 Pulse Rate 78 01/22/19 09:14 Respiratory Rate 18 01/22/19 09:14 Blood Pressure 144/90 01/22/19 09:14 O2 Sat by Pulse Oximetry (%) 100 01/22/19 05:40 Constitutional: Yes: Anxious Eyes: Yes: EOM Intact HENT: Yes: Normocephalic Neck: Yes: Trachea Midline Cardiovascular: Yes: Regular Rate and Rhythm Respiratory: Yes: CTA Bilaterally Gastrointestinal: Yes: Normal Bowel Sounds ...Rectal Exam: Yes: Deferred Renal/: Yes: WNL Breast(s): Yes: WNL Musculoskeletal: Yes: Muscle Pain Extremities: Yes: WNL Edema: No Peripheral Pulses WNL: Yes Neurological: Yes: Alert, Oriented Labs: CBC, BMP 01/22/19 08:40 01/22/19 08:24 Assessment/Plan Current Active Problems iddm uncontrolled gastroparesis dehydration nausea vomiting left foot pain Abdominal pain affecting (Acute) Abnormal Lab Results 01/22/19 01/22/19 08:24 08:40 WBC 13.1 H Absolute Neuts (auto) 11.6 H Neutrophils % 88.9 H Lymphocytes % 7.4 L D Monocytes % 3.4 L Sodium 135 L Potassium 3.3 L Random Glucose 266 H AST 14 L Laboratory Results - last 24 hr 01/22/19 01/22/19 01/22/19 07:46 08:24 08:40 WBC 13.1 H RBC 4.57 Hgb 13.8 Hct 40.6 MCV 88.9 MCH 30.3 MCHC 34.1 RDW 13.5 Plt Count 268 MPV 8.4 Absolute Neuts (auto) 11.6 H Neutrophils % 88.9 H Lymphocytes % 7.4 L D Monocytes % 3.4 L Eosinophils % 0.1 D Basophils % 0.2 Nucleated RBC % 0 PT with INR INR PTT (Actin FS) Sodium 135 L Potassium 3.3 L Chloride 99 Carbon Dioxide 23 Anion Gap 13 BUN 7 Creatinine 0.6 Creat Clearance w eGFR > 60 POC Glucometer 276 Random Glucose 266 H Calcium 8.7 Total Bilirubin 0.6 Direct Bilirubin 0.2 AST 14 L ALT 25 Alkaline Phosphatase 87 Total Protein 7.7 Albumin 3.7 Total Amylase 63 Lipase 108 Blood Type Antibody Screen 01/22/19 01/22/19 01/22/19 08:40 08:40 08:40 WBC RBC Hgb Hct MCV MCH MCHC RDW Plt Count MPV Absolute Neuts (auto) Neutrophils % Lymphocytes % Monocytes % Eosinophils % Basophils % Nucleated RBC % PT with INR 10.90 INR 0.92 PTT (Actin FS) 27.3 Sodium Potassium Chloride Carbon Dioxide Anion Gap BUN Creatinine Creat Clearance w eGFR POC Glucometer Random Glucose Calcium Total Bilirubin Direct Bilirubin AST ALT Alkaline Phosphatase Total Protein Albumin Total Amylase Cancelled Lipase Cancelled Blood Type B POSITIVE Antibody Screen Negative 01/22/19 08:40 WBC RBC Hgb Hct MCV MCH MCHC RDW Plt Count MPV Absolute Neuts (auto) Neutrophils % Lymphocytes % Monocytes % Eosinophils % Basophils % Nucleated RBC % PT with INR INR PTT (Actin FS) Sodium Potassium Chloride Carbon Dioxide Anion Gap BUN Creatinine Creat Clearance w eGFR POC Glucometer Random Glucose Calcium Total Bilirubin Cancelled Direct Bilirubin Cancelled AST Cancelled ALT Cancelled Alkaline Phosphatase Cancelled Total Protein Cancelled Albumin Cancelled Total Amylase Lipase Blood Type Antibody Screen plan; bgm qid novolog insulin doses iv fluid levemir 20units bid gi consult start liquid diet podiatry consult
[2019-01-22] MEDS ORDERED: ACETAMINOPHEN INJECTION 100 ML IVPB ONE (11:19)
[2019-01-22] MEDS: INSULIN SLIDING SCALE (NOVOLOG) 1 VIAL SQ SCH ×3 (11:30→22:42)
[2019-01-22] MEDS ORDERED: LABETALOL HCL 200 MG TABLET (FP) PO ONE ×2 (12:14→18:00)
[2019-01-22] MEDS ORDERED: LABETALOL HCL 200 MG TABLET (FP) ONE (12:27)
[2019-01-22] MEDS: clonazePAM 0.5 MG TABLET PO SCH ×2 (13:20→22:31)
--- NOTE | 2019-01-22 13:51 | CONSULT ---
Consult Consult Specialty:: Podiatry Reason for Consultation:: Fracture left big toe. - History of Present Illness Chief Complaint: Fractured left big toe History of Present Illness: Pt states has a fracture being treated by electrical device. No hx of radiology. - History Source History Provided By: Patient - Past Medical History Pulmonary: Yes: Asthma Gastrointestinal: Yes: Constipation, GERD, Other (Gastroparesis) Hepatobiliary: Yes: Cholelithiasis (remoaved by lap choly) ...LMP: 04/29/18 ...: Yes Endocrine: Yes: Diabetes Mellitus (DM I since age 6) - Past Surgical History Past Surgical History: Yes: Breast Biopsy (fibroadenomas removed bilaterally), Cholecystectomy (Laparoscopic) Additional Surgical History: Myotomy [place] [facility] [place] - Alcohol/Substance Use Hx Alcohol Use: No History of Substance Use: reports: Marijuana (states starting marijuana after her symptoms began in august) - Smoking History Smoking history: Unknown if ever smoked Have you smoked in the past 12 months: No Aproximately how many cigarettes per day: 2 - Social History Usual Living Arrangement: Alone ADL: Independent 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 History of Recent Travel: No Home Medications - Allergies Allergies/Adverse Reactions: Allergies Allergy/AdvReac Type Severity Reaction Status Date / Time shellfish derived Allergy Verified 12/12/18 07:22 famotidine [From Pepcid] AdvReac Verified 01/22/19 09:17 metoclopramide [From Reglan] AdvReac Verified 12/12/18 07:22 ondansetron AdvReac Verified 12/12/18 07:22 - Home Medications Home Medications: Ambulatory Orders Promethazine HCl [Phenergan Plain 6.25 MG/5 ML -] 5 ml PO TID 05/04/18 Insulin Glargine,Hum.rec.anlog [Basaglar Kwikpen U-100] 30 unit SQ BID 06/11/18 Insulin Lispro [Admelog] 100 unit SQ ASDIR PRN 06/11/18 Klonopin 1 mg PO BID 01/22/19 Mirtazapine [Remeron -] 30 mg PO DAILY 01/22/19 Family Disease History - Family Disease History Family Disease History: Diabetes: Mother (Alive: ), Other: Father (Alive: DM, obesity), Mother, Brother (1 brother), Sister (1 sister), Son (3, 1 with eosinophilic esophagitis), Daughter (1, healthy) Physical Exam Vital Signs: Vital Signs Temperature 97.9 F 01/22/19 12:00 Pulse Rate 86 01/22/19 12:00 Respiratory Rate 18 01/22/19 12:00 Blood Pressure 150/90 01/22/19 12:00 O2 Sat by Pulse Oximetry (%) 100 01/22/19 05:40 Extremities: Yes: Other (+tender left big toe and joint on motion, -ecchymosis, -open wounds,) Labs: CBC, BMP 01/22/19 08:40 01/22/19 08:24 Assessment/Plan fracture? arthralgia left big toe Post op shoe ordered. No radiology as pt is . Pneumatic cam walker when gets out of hospital. States she has one at home. Will follow
--- NOTE | 2019-01-22 14:34 | PN ---
Teaching Attending Note Name of Resident: Cecil Zafar ATTENDING PHYSICIAN STATEMENT I saw and evaluated the patient. I reviewed the resident's note and discussed the case with the resident. I agree with the resident's findings and plan as documented. SUBJECTIVE:c/o nausea. no vomiting in the past few hours. refuses to answer the remainder of my questions OBJECTIVE: Last Vital Signs Temp Pulse Resp BP Pulse Ox 97.9 F 91 H 20 136/77 100 01/22/19 14:06 01/22/19 14:06 01/22/19 14:06 01/22/19 14:01/22/19 05:40 General resting comfortable refused physical exam ASSESSMENT AND PLAN: 33yo F wtih PMH DM1, anxiety, and refractory gastroparesis presented to the ER with abdominal pain and vomiting who is currently 19weeks . 1. Abdominal pain- due to gastroparesis vs hyperemesis gravidum. has multiple allergies for various anti-emetics. on IVF. awaiting GI eval. appears pt had a J tube in the past for this issue. was recommended to start marinol to assist, unclear if patient is taking. advance diet slowly as tolerated. 2. Hyperglycemia- re-started home medications. started on clear liquids. endo consulted 3. Elevated BP- platelet count normal. check UA for protein. start on labetolol. titrate to optimize BP 4. Leukocytosis- likely reactive. there is left shift. check UA for infection. would hold abx at this time 5. IUP- 19 weeks. currently on tocometer monitoring 6. anxiety-confirm medications are safe during . hold remeron 7. DVT ppx- SCD Thank you for this consultative opportunity. will continue to follow with you
--- NOTE | 2019-01-22 14:35 | CON.GI ---
Consult Consult Specialty:: GI Referred by:: ARMINDA Reason for Consultation:: gastroparesis - History of Present Illness Chief Complaint: abdominal pain N/V History of Present Illness: 33F at 19 weeks gestation with type I DM poorly controlled with h/o gastroparesis (h/o jejunostomy 04/2018 at [facility] [place], removed 2/2 infection), ? h/o G- POEM, presenting for evaluation of abdominal pain and N/V. Patient reports blood glucose at home to be in 300s. Has tried multiple medications for gastroparesis without relief -- currently receiving rectal phenergan. GI consulted for further management. On evaluation, patient sleeping and only able to give limited history. Reports cramping R sided abdominal pain, but that whole abdomen hurts. Emesis is nonbloody, nonbilious. - History Source History Provided By: Patient Limitations to Obtaining History: Other (somnolent) - Past Medical History Pulmonary: Yes: Asthma Gastrointestinal: Yes: Constipation, GERD, Other (Gastroparesis) Hepatobiliary: Yes: Cholelithiasis (remoaved by simin berrios) ...LMP: 04/29/18 ...: Yes Endocrine: Yes: Diabetes Mellitus (DM I since age 6) - Past Surgical History Past Surgical History: Yes: Breast Biopsy (fibroadenomas removed bilaterally), Cholecystectomy (Laparoscopic) Additional [place] [facility] [place] - Alcohol/Substance Use Hx Alcohol Use: No History of Substance Use: reports: Marijuana (states starting marijuana after her symptoms began in august) - Smoking History Smoking history: Unknown if ever smoked Have you smoked in the past 12 months: No Aproximately how many cigarettes per day: 2 - Social History Usual Living Arrangement: Alone ADL: Independent 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 History of Recent Travel: No Home Medications - Allergies Allergies/Adverse Reactions: Allergies Allergy/AdvReac Type Severity Reaction Status Date / Time shellfish derived Allergy Verified 12/12/18 07:22 famotidine [From Pepcid] AdvReac Verified 01/22/19 09:17 metoclopramide [From Reglan] AdvReac Verified 12/12/18 07:22 ondansetron AdvReac Verified 12/12/18 07:22 - Home Medications Home Medications: Ambulatory Orders Promethazine HCl [Phenergan Plain 6.25 MG/5 ML -] 5 ml PO TID 05/04/18 Insulin Glargine,Hum.rec.anlog [Basaglar Kwikpen U-100] 30 unit SQ BID 06/11/18 Insulin Lispro [Admelog] 100 unit SQ ASDIR PRN 06/11/18 Klonopin 1 mg PO BID 01/22/19 Mirtazapine [Remeron -] 30 mg PO DAILY 01/22/19 Family Disease History - Family Disease History Family Disease History: Diabetes: Mother (Alive: ), Other: Father (Alive: DM, obesity), Mother, Brother (1 brother), Sister (1 sister), Son (3, 1 with eosinophilic esophagitis), Daughter (1, healthy) Review of Systems - Review of Systems Constitutional: reports: No Symptoms Eyes: reports: No Symptoms HENT: reports: No Symptoms Neck: reports: No Symptoms Cardiovascular: reports: No Symptoms Respiratory: reports: No Symptoms Gastrointestinal: reports: Abdominal Pain, Nausea, Vomiting Musculoskeletal: reports: No Symptoms Neurological: reports: No Symptoms Hematology/Lymphatic: reports: No Symptoms Physical Exam-GI Vital Signs: Vital Signs Temperature 97.9 F 01/22/19 14:06 Pulse Rate 91 H 01/22/19 14:06 Respiratory Rate 20 01/22/19 14:06 Blood Pressure 136/77 01/22/19 14:06 O2 Sat by Pulse Oximetry (%) 100 01/22/19 05:40 Constitutional: Yes: Other (sleepy but arousable) Eyes: Yes: Conjunctiva Clear Cardiovascular: Yes: Regular Rate and Rhythm Respiratory: Yes: CTA Bilaterally ...Palpate: Yes: Soft, Tenderness (diffusely ttp without guarding or rebound) ...Rectal Exam: Yes: Deferred Edema: No Integumentary: Yes: Body Piercing (lip) Neurological: Yes: Alert, Oriented Labs: CBC, BMP 01/22/19 08:40 01/22/19 08:24 INR, PTT INR 0.92 (0.83-1.09) 01/22/19 08:40 Assessment/Plan Diabetic Gastroparesis with h/o jejunostomy and ? G-POEM at 19 weeks gestation. - strict glycemic control as per endocrine - IVF - advance diet as tolerated - once able to tolerate solids, small frequent meals and low carb, low fat and low fiber paramount - anti-emetics as safe/appropriate per OBGYN
[2019-01-22] MEDS ORDERED: LABETALOL HCL 200 MG TABLET (FP) PO SCH (22:00)
[2019-01-22] MEDS: LABETALOL HCL 200 MG TABLET (FP) PO SCH (22:31)
[2019-01-22] MEDS: INSULIN (LEVEMIR) 100 UNITS/ML UNITS SQ SCH (22:43)
[2019-01-23] MEDS: PROMETHAZINE HCL 25 MG/1 ML VIAL IVPB SCH ×8 (00:14→22:52)
[2019-01-23 02:13] LABS: HBsAG SCREEN Negative (Negative)
[2019-01-23] MEDS: INSULIN (LEVEMIR) 100 UNITS/ML UNITS SQ SCH ×2 (06:33→22:54)
[2019-01-23] MEDS: INSULIN SLIDING SCALE (NOVOLOG) 1 VIAL SQ SCH ×4 (06:43→23:00)
[2019-01-23] MEDS: LABETALOL HCL 200 MG TABLET (FP) PO SCH ×3 (06:43→23:07)
[2019-01-23 07:17] LABS: RUBELLA ANTIBODY,IGM <20.0 AU/mL (0.0-19.9); RUBELLA IgG ANTIBODY 2.48 index (Immune >0.99)
[2019-01-23 07:27] LABS: BASO % 0.1 % (0-2.0); EOS % 0.1 % (0-4.5); HEMATOCRIT 36.8 % (32.4-45.2); HEMOGLOBIN 12.7 GM/dL (10.7-15.3); LYMPH % 11.6 % (8-40); MCH 30.4 pg (25.7-33.7); MCHC 34.5 g/dl (32.0-36.0); MEAN CELL VOLUME 88.2 fl (80-96); MEAN PLT VOLUME 8.4 fl (7.5-11.1); MONO % 5.7 % (3.8-10.2); NEUT % 82.5 % (42.8-82.8); PLATELET COUNT 283 K/MM3 (134-434); RBC 4.18 M/mm3 (3.60-5.2); RDW 13.2 % (11.6-15.6); WHITE BLOOD COUNT 12.4 K/mm3 (4.0-10.0)
[2019-01-23 08:10] LABS: ANION GAP 11 MMOL/L (8-16); BLOOD UREA NITROGEN 6 mg/dL (7-18); CALCIUM 8.4 mg/dL (8.5-10.1); CHLORIDE 102 mmol/L (98-107); CO2 23 mmol/L (21-32); CREATININE 0.5 mg/dL (0.55-1.3); GLUCOSE,RANDOM 159 mg/dL (74-106); MAGNESIUM 1.6 mg/dL (1.8-2.4); PHOSPHOROUS 3.3 mg/dL (2.5-4.9); POTASSIUM 3.1 mmol/L (3.5-5.1); SODIUM 137 mmol/L (136-145)
[2019-01-23] MEDS ORDERED: POTASSIUM CHLORIDE TABS 20 MEQ TABLET.ER (FP) PO ONE ×2 (08:14→10:00)
[2019-01-23] MEDS ORDERED: MAGNESIUM SULF 50% (8.12 MEQ/2 ML-1 GM VIAL) IVPB ONE (08:15)
[2019-01-23 08:55] LABS: URINE APPEARANCE SLCLOUDY; URINE BILIRUBIN NEGATIVE (<2.0 mg/dL); URINE COLOR YELLOW; URINE GLUCOSE (UA) 3+ (NEGATIVE); URINE KETONE 2+ (NEGATIVE); URINE LEUK ESTERASE NEGATIVE (NEGATIVE); URINE NITRITE NEGATIVE (NEGATIVE); URINE PROTEIN 1+ (NEGATIVE); URINE UROBILINOGEN NEGATIVE mg/dL (0.2-1.0)
[2019-01-23 09:04] LABS: EPI CELLS FEW /HPF (FEW); URINE BACTERIA RARE /hpf (NONE SEEN); URINE MUCUS FEW
[2019-01-23] MEDS: clonazePAM 0.5 MG TABLET PO SCH ×2 (09:43→22:52)
[2019-01-23] MEDS: KCL 10 MEQ IVPB 10 MEQ/100 ML INFUS.BAG IVPB SCH ×3 (10:01→12:25)
--- NOTE | 2019-01-23 10:30 | PN ---
Progress Note (short form) - Note Progress Note: Patient seen and evaluated. She continues to experience vomiting but is feeling hungry. Vitals are stable. FHR : Positive A/P : 19 weeks gestation Gastroparesis Pre gestational diabetes Gestational hypertension Hypokalemia Continue Medications
[2019-01-23] MEDS ORDERED: LACTATED RINGERS SOLUTION 1,000 ML/1,000 ML INFUS.BAG IV SCH (12:00)
--- NOTE | 2019-01-23 12:54 | PN ---
Physical Exam: SUBJECTIVE: Patient seen and examined at bedside. C/o episodes of "green" vomiting overnight and this AM. Ongoing nausea. Mild ongoing abd pain. OBJECTIVE: Vital Signs Period Temp Pulse Resp BP Sys/Powell Pulse Ox Last 24 Hr 97.9 F-99.2 F 91-98 20-20 136-158/77-100 GENERAL: A&Ox3, NAD, drowsy HEENT: NC/AT, PERRLA, EOMI, sclera anicteric, MMM NECK: Trachea midline, full range of motion, supple. LUNGS: CTA b/l HEART: tachycardic, no m/r/g ABDOMEN: +bs, soft, non-distended, mild diffuse tenderness lower>upper EXTREMITIES: 2+ pulses, warm, well-perfused, no edema. 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 SKIN: Warm, dry, normal turgor, no rashes or lesions noted Laboratory Results - last 24 hr 01/22/19 01/22/19 01/22/19 08:40 16:47 22:38 WBC RBC Hgb Hct MCV MCH MCHC RDW Plt Count MPV Absolute Neuts (auto) Neutrophils % Lymphocytes % Monocytes % Eosinophils % Basophils % Nucleated RBC % Sodium Potassium Chloride Carbon Dioxide Anion Gap BUN Creatinine Creat Clearance w eGFR POC Glucometer 179 193 Random Glucose Hemoglobin A1c % Calcium Phosphorus Magnesium Urine Color Urine Appearance Urine pH Ur Specific [place] Urine Protein Urine Glucose (UA) Urine Ketones Urine Blood Urine Nitrite Urine Bilirubin Urine Urobilinogen Ur Leukocyte Esterase Urine WBC (Auto) Urine RBC (Auto) Ur Epithelial Cells Urine Bacteria Urine Mucus Hep Bs Antigen Negative Rubella IgG Antibody 2.48 Rubella IgM Antibody <20.0 01/23/19 01/23/19 01/23/19 06:42 07:00 07:00 WBC 12.4 H RBC 4.18 Hgb 12.7 Hct 36.8 MCV 88.2 MCH 30.4 MCHC 34.5 RDW 13.2 Plt Count 283 MPV 8.4 Absolute Neuts (auto) 10.2 H Neutrophils % 82.5 Lymphocytes % 11.6 D Monocytes % 5.7 Eosinophils % 0.1 Basophils % 0.1 Nucleated RBC % 0 Sodium 137 Potassium 3.1 L Chloride 102 Carbon Dioxide 23 Anion Gap 11 BUN 6 L Creatinine 0.5 L Creat Clearance w eGFR > 60 POC Glucometer 160 Random Glucose 159 H Hemoglobin A1c % Calcium 8.4 L Phosphorus 3.3 Magnesium 1.6 L Urine Color Urine Appearance Urine pH Ur Specific [place] Urine Protein Urine Glucose (UA) Urine Ketones Urine Blood Urine Nitrite Urine Bilirubin Urine Urobilinogen Ur Leukocyte Esterase Urine WBC (Auto) Urine RBC (Auto) Ur Epithelial Cells Urine Bacteria Urine Mucus Hep Bs Antigen Rubella IgG Antibody Rubella IgM Antibody 01/23/19 01/23/19 01/23/19 07:00 08:00 11:17 WBC RBC Hgb Hct MCV MCH MCHC RDW Plt Count MPV Absolute Neuts (auto) Neutrophils % Lymphocytes % Monocytes % Eosinophils % Basophils % Nucleated RBC % Sodium Potassium Chloride Carbon Dioxide Anion Gap BUN Creatinine Creat Clearance w eGFR POC Glucometer 173 Random Glucose Hemoglobin A1c % 8.9 H Calcium Phosphorus Magnesium Urine Color Yellow Urine Appearance Slcloudy Urine pH 5.0 D Ur Specific [place] 1.021 Urine Protein 1+ H Urine Glucose (UA) 3+ H Urine Ketones 2+ H Urine Blood Negative Urine Nitrite Negative Urine Bilirubin Negative Urine Urobilinogen Negative Ur Leukocyte Esterase Negative Urine WBC (Auto) 2 Urine RBC (Auto) None Ur Epithelial Cells Few Urine Bacteria Rare Urine Mucus Few Hep Bs Antigen Rubella IgG Antibody Rubella IgM Antibody Active Medications Generic Name Dose Route Start Last Admin Trade Name Marimar PRN Reason Stop Dose Admin Acetaminophen 1,000 mg 01/22/19 10:59 01/22/19 12:10 Ofirmev Injection - IVPB 1,000 mg Q6H PRN Administration PAIN LEVEL 6-10 Clonazepam 1 mg 01/22/19 11:15 01/23/19 09:43 Klonopin - PO 1 mg BID DREA Administration Lactated Ringer's 1,000 ml in 1,000 mls @ 125 mls/hr 01/23/19 12:00 01/23/19 12:31 Lactated Ringers Solution IV 125 mls/hr ASDIR DREA Administration Insulin Aspart 1 vial 01/22/19 11:00 01/23/19 11:38 Novolog Vial Sliding Scale - SQ 5 units ACHS DREA Administration Protocol Insulin Detemir 22 units 01/23/19 12:11 Levemir Vial SQ BID@0700,2200 [facility] Labetalol HCl 200 mg 01/22/19 22:00 01/23/19 06:43 Normodyne - PO 200 mg TID DREA Administration Promethazine HCl 25 mg 01/22/19 16:00 01/23/19 12:30 Phenergan Injection - IVPB Not Given Q4H [facility] ASSESSMENT/PLAN: 33 y/o F at 19 weeks IUP w/ PMHx poorly controlled IDDM, recurrent gastroparesis complicated by J-tube placement and then removal d/t MRSA infection during summer 2017, GERD, HLD, b/l fibroadenomas, anxiety, p/w diffuse abd pain and n/v, admitted to 3W. #abd pain/nausea/vomiting -DDx gastroparesis vs hyperemesis gravidarum -poor tolerance to most anti-emetics -cont phenergan -can consider compazine (category C) w/ OBGYN clearance -cont LR @ 125 -tolerated liquid diet this AM, advanced to diabetic in small frequent meals -GI consulted, reccs appreciated #DM -increased levemir to 22U BID -BGM ACHS, SSI #leukocytosis -likely reactive, resolving, UA negative, no ABx at this time #IUP -cont on tocometer, rest per OBGYN #HTN -cont labetalol #FEN -LR @ 125 -recurrently hypokalemic and hypomagnesemic, will monitor and aggressively replete -diabetic diet in small frequent meals #PPx -DVT: SCDs -GI: intolerant of Zantac, otherwise not indicated #code -full #dispo -monitor on 3W Visit type - Emergency Visit Emergency Visit: No - New Patient This patient is new to me today: Yes Date on this admission: 01/23/19 - Critical Care Critical Care patient: No
[2019-01-23] MEDS ORDERED: ACETAMINOPHEN 325 MG TABLET (FP) PO PRN (14:54)
--- NOTE | 2019-01-23 14:58 | PN ---
Teaching Attending Note Name of Resident: Honorio Simmons ATTENDING PHYSICIAN STATEMENT I saw and evaluated the patient. I reviewed the resident's note and discussed the case with the resident. I agree with the resident's findings and plan as documented. SUBJECTIVE:episode of vomiting this AM prior to eating. has since tolerated liquid diet. states abdominal pain is much improved. denies CP, SOB< fever, chilsl, C/D OBJECTIVE: Last Vital Signs Temp Pulse Resp BP Pulse Ox 98.8 F 112 H 18 107/56 L 100 01/23/19 14:34 01/23/19 14:34 01/23/19 14:34 01/23/19 14:34 01/22/19 05:40 General NAD CV S1 S2 RRR no murmur/rub/gallop Lungs cTA B/L no wheezing/rales/rhonchi Abdomen soft +Gravid uterus slight suprapubic discomfort ASSESSMENT AND PLAN: 33yo F wtih PMH DM1, anxiety, and refractory gastroparesis presented to the ER with abdominal pain and vomiting who is currently 19weeks . 1. Abdominal pain- due to gastroparesis vs hyperemesis gravidum. clinically improved. tolerated clear liquids. will slowly advance as tolerated. should cont with small frequent meals. cont IVF until tolerating enough diet. cont antiemetics as needed. will need close monitoring with GI during this . 2., Hypokalemia- KCL to IVF 3, Hypomagnesemia- Mg IV 4. Hyperglycemia- improved however above goal. will liekly need to adjust insulin as diet is advanced. 5. Elevated BP- above goal. increase labetolol to TID. titrate to optimize BP 6. Leukocytosis- due to . UA negative for infection. no indication for abx 7. IUP- 19 weeks. management per OB 8. anxiety-confirm medications are safe during . hold remeron 9. DVT ppx- SCD Thank you for this consultative opportunity. will continue to follow with you
--- NOTE | 2019-01-23 15:50 | PN ---
GI Progress Note Subjective: Resting comfortably No vomiting States feeling somewhat better No abdominal pain - Objective Vital Signs: Vital Signs Temperature 98.8 F 01/23/19 14:34 Pulse Rate 112 H 01/23/19 14:34 Respiratory Rate 18 01/23/19 14:34 Blood Pressure 107/56 L 01/23/19 14:34 O2 Sat by Pulse Oximetry (%) 100 01/22/19 05:40 Constitutional: Calm Eyes: No: Sclera Icterus Cardiovascular: Yes: Regular Rate and Rhythm Respiratory: Yes: CTA Bilaterally Gastrointestinal Inspection: Yes: Scars. 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
[2019-01-23] MEDS ORDERED: INSULIN SLIDING SCALE (NOVOLOG) 1 VIAL SQ SCH (22:02)
--- NOTE | 2019-01-23 22:06 | PN ---
Progress Note, Physician Chief Complaint: tolerating diet no further vomiting - Current Medication List Current Medications: Active Medications Acetaminophen (Tylenol -) 650 mg PO Q4H PRN PRN Reason: PAIN SCALE 6-10 Last Admin: 01/23/19 21:22 Dose: 650 mg Clonazepam (Klonopin -) 1 mg PO BID [facility] Last Admin: 01/23/19 09:43 Dose: 1 mg Lactated Ringer's (Lactated Ringers Solution) 1,000 ml in 1,000 mls @ 125 mls/ hr IV ASDIR [facility] Last Admin: 01/23/19 12:31 Dose: 125 mls/hr Insulin Aspart (Novolog Vial Sliding Scale -) 1 vial SQ ACHS [facility]; Protocol Insulin Detemir (Levemir Vial) 22 units SQ BID@0700,2200 [facility] Labetalol HCl (Normodyne -) 200 mg PO TID [facility] Last Admin: 01/23/19 14:44 Dose: Not Given Promethazine HCl (Phenergan Injection -) 25 mg IVPB Q4H [facility] Last Admin: 01/23/19 18:14 Dose: 25 mg Pyridoxine HCl (Vitamin B6 -) 25 mg PO BID [facility] Stop: 01/26/19 21:59 - Objective Vital Signs: Vital Signs Temperature 98.4 F 01/23/19 21:49 Pulse Rate 88 01/23/19 21:49 Respiratory Rate 20 01/23/19 21:49 Blood Pressure 128/82 01/23/19 21:49 O2 Sat by Pulse Oximetry (%) 100 01/22/19 05:40 Constitutional: Yes: Calm Eyes: Yes: EOM Intact HENT: Yes: Normocephalic Neck: Yes: Trachea Midline Cardiovascular: Yes: Regular Rate and Rhythm Respiratory: Yes: Regular Gastrointestinal: Yes: WNL Musculoskeletal: Yes: WNL Extremities: Yes: WNL Labs: CBC, BMP 01/23/19 07:00 01/23/19 07:00 INR, PTT INR 0.92 (0.83-1.09) 01/22/19 08:40 Problem List - Problems (1) Abdominal pain affecting Code(s): O26.899 - OTH RELATED CONDITIONS, UNSPECIFIED TRIMESTER; R10.9 - UNSPECIFIED ABDOMINAL PAIN (2) Diabetes Code(s): E11.9 - TYPE 2 DIABETES MELLITUS WITHOUT COMPLICATIONS Qualifiers: Diabetes mellitus type: type 1 (3) Gastroparesis Code(s): K31.84 - GASTROPARESIS Assessment/Plan Current Active Problems Abdominal pain affecting (Acute) Diabetes (Acute) Gastroparesis (Acute) Abnormal Lab Results 01/23/19 01/23/19 01/23/19 07:00 07:00 07:00 WBC 12.4 H Absolute Neuts (auto) 10.2 H Potassium 3.1 L BUN 6 L Creatinine 0.5 L Random Glucose 159 H Hemoglobin A1c % 8.9 H Calcium 8.4 L Magnesium 1.6 L Urine Protein Urine Glucose (UA) Urine Ketones 01/23/19 08:00 WBC Absolute Neuts (auto) Potassium BUN Creatinine Random Glucose Hemoglobin A1c % Calcium Magnesium Urine Protein 1+ H Urine Glucose (UA) 3+ H Urine Ketones 2+ H Laboratory Results - last 24 hr 01/22/19 01/22/19 01/23/19 08:40 22:38 06:42 WBC RBC Hgb Hct MCV MCH MCHC RDW Plt Count MPV Absolute Neuts (auto) Neutrophils % Lymphocytes % Monocytes % Eosinophils % Basophils % Nucleated RBC % Sodium Potassium Chloride Carbon Dioxide Anion Gap BUN Creatinine Creat Clearance w eGFR POC Glucometer 193 160 Random Glucose Hemoglobin A1c % Calcium Phosphorus Magnesium Urine Color Urine Appearance Urine pH Ur Specific [place] Urine Protein Urine Glucose (UA) Urine Ketones Urine Blood Urine Nitrite Urine Bilirubin Urine Urobilinogen Ur Leukocyte Esterase Urine WBC (Auto) Urine RBC (Auto) Ur Epithelial Cells Urine Bacteria Urine Mucus Hep Bs Antigen Negative Rubella IgG Antibody 2.48 Rubella IgM Antibody <20.0 01/23/19 01/23/19 01/23/19 07:00 07:00 07:00 WBC 12.4 H RBC 4.18 Hgb 12.7 Hct 36.8 MCV 88.2 MCH 30.4 MCHC 34.5 RDW 13.2 Plt Count 283 MPV 8.4 Absolute Neuts (auto) 10.2 H Neutrophils % 82.5 Lymphocytes % 11.6 D Monocytes % 5.7 Eosinophils % 0.1 Basophils % 0.1 Nucleated RBC % 0 Sodium 137 Potassium 3.1 L Chloride 102 Carbon Dioxide 23 Anion Gap 11 BUN 6 L Creatinine 0.5 L Creat Clearance w eGFR > 60 POC Glucometer Random Glucose 159 H Hemoglobin A1c % 8.9 H Calcium 8.4 L Phosphorus 3.3 Magnesium 1.6 L Urine Color Urine Appearance Urine pH Ur Specific [place] Urine Protein Urine Glucose (UA) Urine Ketones Urine Blood Urine Nitrite Urine Bilirubin Urine Urobilinogen Ur Leukocyte Esterase Urine WBC (Auto) Urine RBC (Auto) Ur Epithelial Cells Urine Bacteria Urine Mucus Hep Bs Antigen Rubella IgG Antibody Rubella IgM Antibody 01/23/19 01/23/19 01/23/19 08:00 11:17 16:22 WBC RBC Hgb Hct MCV MCH MCHC RDW Plt Count MPV Absolute Neuts (auto) Neutrophils % Lymphocytes % Monocytes % Eosinophils % Basophils % Nucleated RBC % Sodium Potassium Chloride Carbon Dioxide Anion Gap BUN Creatinine Creat Clearance w eGFR POC Glucometer 173 174 Random Glucose Hemoglobin A1c % Calcium Phosphorus Magnesium Urine Color Yellow Urine Appearance Slcloudy Urine pH 5.0 D Ur Specific [place] 1.021 Urine Protein 1+ H Urine Glucose (UA) 3+ H Urine Ketones 2+ H Urine Blood Negative Urine Nitrite Negative Urine Bilirubin Negative Urine Urobilinogen Negative Ur Leukocyte Esterase Negative Urine WBC (Auto) 2 Urine RBC (Auto) None Ur Epithelial Cells Few Urine Bacteria Rare Urine Mucus Few Hep Bs Antigen Rubella IgG Antibody Rubella IgM Antibody plan; levemir 22 units bid titrate as needed novolog sliding scale will need ac and 2hr pc bgm will advance to insulin pump if patient agrees as outpatient
[2019-01-23] MEDS: PYRIDOXINE HCL (B-6) 50 MG TABLET (FP) PO SCH (22:52)
[2019-01-24] MEDS: PROMETHAZINE HCL 25 MG/1 ML VIAL IVPB SCH ×3 (01:59→09:43)
[2019-01-24 06:02] VITALS: BP 104/62; PULSE 74; TEMP 98.6
[2019-01-24] MEDS: LABETALOL HCL 200 MG TABLET (FP) PO SCH (06:02)
--- NOTE | 2019-01-24 06:09 | PN ---
Ante-Partal Exam - Subjective Vital Signs: Vital Signs Temperature 98.6 F 01/24/19 06:00 Pulse Rate 74 01/24/19 06:00 Respiratory Rate 18 01/24/19 06:00 Blood Pressure 104/62 01/24/19 06:00 O2 Sat by Pulse Oximetry (%) 100 01/22/19 05:40 Bleeding: No Headache: No Visual changes: No Right upper quadrant pain: No - Contractions Contractions: No - Exam during Labor Variability: Moderate Monitor Decelerations: None Amniotic Membrane Status: Intact - Assessment/Plan Assessment/Plan: IIDDm Hypertension Gastroparesis hypokalemia Abdominal painNST daily Plan Will dc Labetalol BPs running too low for DC home when medicall cleared snd tolerating diet nst daily
[2019-01-24] MEDS: INSULIN (LEVEMIR) 100 UNITS/ML UNITS SQ SCH (06:52)
[2019-01-24] MEDS: INSULIN SLIDING SCALE (NOVOLOG) 1 VIAL SQ SCH ×3 (07:17→11:45)
[2019-01-24 07:22] LABS: BASO % 0.3 % (0-2.0); EOS % 0.2 % (0-4.5); HEMATOCRIT 33.2 % (32.4-45.2); HEMOGLOBIN 11.8 GM/dL (10.7-15.3); LYMPH % 16.5 % (8-40); MCH 31.1 pg (25.7-33.7); MCHC 35.5 g/dl (32.0-36.0); MEAN CELL VOLUME 87.4 fl (80-96); MEAN PLT VOLUME 8.1 fl (7.5-11.1); MONO % 8.9 % (3.8-10.2); NEUT % 74.1 % (42.8-82.8); PLATELET COUNT 280 K/MM3 (134-434); RBC 3.79 M/mm3 (3.60-5.2); RDW 13.2 % (11.6-15.6); WHITE BLOOD COUNT 10.3 K/mm3 (4.0-10.0)
[2019-01-24 07:50] LABS: ANION GAP 9 MMOL/L (8-16); BLOOD UREA NITROGEN 5 mg/dL (7-18); CALCIUM 8.2 mg/dL (8.5-10.1); CHLORIDE 105 mmol/L (98-107); CO2 23 mmol/L (21-32); CREATININE 0.3 mg/dL (0.55-1.3); GLUCOSE,RANDOM 65 mg/dL (74-106); PHOSPHOROUS 3.3 mg/dL (2.5-4.9); POTASSIUM 3.2 mmol/L (3.5-5.1); SODIUM 137 mmol/L (136-145)
[2019-01-24] MEDS ORDERED: SODIUM CHLORIDE 0.9%/KCL 20 MEQ/1,000 ML INFUS.BAG IV SCH (08:30)
[2019-01-24] MEDS ORDERED: DEXTROSE 50%-WATER - 25 GM/50 ML VIAL IVPUSH ONE (08:53)
[2019-01-24] MEDS: clonazePAM 0.5 MG TABLET PO SCH (09:32)
[2019-01-24] MEDS: KCL 10 MEQ IVPB 10 MEQ/100 ML INFUS.BAG IVPB SCH ×2 (09:32→11:22)
[2019-01-24] MEDS: PYRIDOXINE HCL (B-6) 50 MG TABLET (FP) PO SCH (09:33)
--- NOTE | 2019-01-24 09:49 | PN ---
Progress Note, Physician Chief Complaint: Persistent nausea and vomiting in patient with gastroeparesis, diabetes, (19 weeks by dates). History of Present Illness: Still status quo with episodic nausea, emesis post-prandially, but able to take in sufficiently. - Current Medication List Current Medications: Active Medications Acetaminophen (Tylenol -) 650 mg PO Q4H PRN PRN Reason: PAIN SCALE 6-10 Last Admin: 01/23/19 21:22 Dose: 650 mg Clonazepam (Klonopin -) 1 mg PO BID [facility] Last Admin: 01/24/19 09:32 Dose: 1 mg Potassium Chloride/Sodium Chloride (Ns+20 Meq Kcl -) 20 meq in 1,000 mls @ 125 mls/hr IV ASDIR [facility] Last Admin: 01/24/19 09:32 Dose: 125 mls/hr Potassium Chloride (Potassium Chloride 10 Meq Premix Ivpb -) 10 meq in 100 mls @ 100 mls/hr IVPB Q60M [facility] Stop: 01/24/19 11:59 Last Admin: 01/24/19 09:32 Dose: 100 mls/hr Insulin Aspart (Novolog Vial Sliding Scale -) 1 vial SQ ACHS [facility]; Protocol Last Admin: 01/24/19 07:18 Dose: 5 units Insulin Detemir (Levemir Vial) 22 units SQ BID@0700,2200 [facility] Last Admin: 01/24/19 06:52 Dose: 22 units Promethazine HCl (Phenergan Injection -) 25 mg IVPB Q4H [facility] Last Admin: 01/24/19 09:43 Dose: Not Given Pyridoxine HCl (Vitamin B6 -) 25 mg PO BID [facility] Stop: 01/26/19 21:59 Last Admin: 01/24/19 09:33 Dose: 25 mg - Objective Vital Signs: Vital Signs Temperature 98.6 F 01/24/19 06:00 Pulse Rate 74 01/24/19 06:00 Respiratory Rate 18 01/24/19 06:00 Blood Pressure 104/62 01/24/19 06:00 O2 Sat by Pulse Oximetry (%) 100 01/22/19 05:40 Constitutional: Yes: Well Nourished, No Distress, Calm Gastrointestinal: Yes: Normal Bowel Sounds, Soft. No: Tenderness, Epigastrium Labs: CBC, BMP 01/24/19 06:50 01/24/19 07:00 INR, PTT INR 0.92 (0.83-1.09) 01/22/19 08:40 Assessment/Plan Continue with anti-emetics and fluid/electrolyte and caloric support
[2019-01-24] MEDS ORDERED: PROMETHAZINE HCL 25 MG/1 ML VIAL IVPB PRN (10:22)
--- NOTE | 2019-01-24 11:22 | PN ---
Teaching Attending Note Name of Resident: Honorio Simmons ATTENDING PHYSICIAN STATEMENT I saw and evaluated the patient. I reviewed the resident's note and discussed the case with the resident. I agree with the resident's findings and plan as documented. SUBJECTIVE:currently asymptomatic. tolerating meals with minimal nausea. did vomit early this AM that was not related to eating. states she typically has symptoms assoc iwth hypoglycemia and self treats with juice. denies CP, SOB, fever, chills, N/V/C/D OBJECTIVE: Last Vital Signs Temp Pulse Resp BP Pulse Ox 98.6 F 74 18 104/62 100 01/24/19 06:00 01/24/19 06:00 01/24/19 06:00 01/24/19 06:00 01/22/19 05:40 General NAD Abdomen soft +Gravid uterus slight suprapubic discomfort ASSESSMENT AND PLAN: 33yo F wtih PMH DM1, anxiety, and refractory gastroparesis presented to the ER with abdominal pain and vomiting who is currently 19weeks . 1. Abdominal pain- due to gastroparesis vs hyperemesis gravidum. clinically improved. tolerated small frequent meals. promethazine has been standing dose and pt has been refusing some of the dosing. will switch to prn and encourage po intake. will need close monitoring with GI during this . 2., Hypokalemia- KCL to IVF 3, Hypomagnesemia- resolved 4. Hyperglycemia- levemir was increased yesterday to 22 unit BID with low reading this AM. will monitor for now and consider adjusting if needed, however with improved appetite should tolerate well. 5. Elevated BP-no longer elevated and was low yesterday afternoon. d/c labetolol and watch. consider re-starting if necessary. 6. Leukocytosis- due to . UA negative for infection. no indication for abx 7. IUP- 19 weeks. management per OB 8. anxiety-confirm medications are safe during . hold remeron 9. DVT ppx- SCD 10. as long as sugars stay stable this afternoon and continues to tolerate diet , no objection for discharge later today Thank you for this consultative opportunity.
--- NOTE | 2019-01-24 12:56 | PN ---
Physical Exam: SUBJECTIVE: Patient seen and examined at bedside. C/o vomiting at 3am. On further questioning, states she has not had 24 hours without vomiting since August 2017. Ongoing nausea. Mild ongoing abd pain. Tolerating solid diet equally well as liquid. OBJECTIVE: Vital Signs Period Temp Pulse Resp BP Sys/Powell Pulse Ox Last 24 Hr 98.4 F-98.8 F 74-112 18-20 104-128/56-82 GENERAL: A&Ox3, NAD, drowsy HEENT: NC/AT, PERRLA, EOMI, sclera anicteric, MMM NECK: Trachea midline, full range of motion, supple. LUNGS: CTA b/l HEART: RRR, no m/r/g ABDOMEN: +bs, soft, non-distended, mild diffuse tenderness lower>upper EXTREMITIES: 2+ pulses, warm, well-perfused, no edema. 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 SKIN: Warm, dry, normal turgor, no rashes or lesions noted Laboratory Results - last 24 hr 01/23/19 01/23/19 01/24/19 16:22 22:11 06:35 WBC RBC Hgb Hct MCV MCH MCHC RDW Plt Count MPV Absolute Neuts (auto) Neutrophils % Lymphocytes % Monocytes % Eosinophils % Basophils % Nucleated RBC % Sodium Potassium Chloride Carbon Dioxide Anion Gap BUN Creatinine Creat Clearance w eGFR POC Glucometer 174 198 73 Random Glucose Calcium Phosphorus Magnesium 01/24/19 01/24/19 01/24/19 06:50 07:00 11:28 WBC 10.3 H RBC 3.79 Hgb 11.8 Hct 33.2 MCV 87.4 MCH 31.1 MCHC 35.5 RDW 13.2 Plt Count 280 MPV 8.1 Absolute Neuts (auto) 7.6 Neutrophils % 74.1 Lymphocytes % 16.5 D Monocytes % 8.9 Eosinophils % 0.2 D Basophils % 0.3 Nucleated RBC % 0 Sodium 137 Potassium 3.2 L Chloride 105 Carbon Dioxide 23 Anion Gap 9 BUN 5 L Creatinine 0.3 L Creat Clearance w eGFR > 60 POC Glucometer 96 Random Glucose 65 L Calcium 8.2 L Phosphorus 3.3 Magnesium 2.0 Active Medications Generic Name Dose Route Start Last Admin Trade Name Freq PRN Reason Stop Dose Admin Acetaminophen 650 mg 01/23/19 14:54 01/23/19 21:22 Tylenol - PO 650 mg Q4H PRN Administration PAIN SCALE 6-10 Clonazepam 1 mg 01/22/19 11:15 01/24/19 09:32 Klonopin - PO 1 mg BID DREA Administration Potassium Chloride/Sodium Chloride 20 meq in 1,000 mls @ 125 mls/hr 01/24/19 08:30 01/24/19 09:32 Ns+20 Meq Kcl - IV 125 mls/hr ASDIR DREA Administration Insulin Aspart 1 vial 01/23/19 22:45 01/24/19 11:45 Novolog Vial Sliding Scale - SQ 4 units ACHS DREA Administration Protocol Insulin Detemir 22 units 01/23/19 12:11 01/24/19 06:52 Levemir Vial SQ 22 units BID@0700,2200 DREA Administration Promethazine HCl 25 mg 01/24/19 10:22 Phenergan Injection - IVPB Q4H PRN NAUSEA AND/OR VOMITING Pyridoxine HCl 25 mg 01/23/19 22:00 01/24/19 09:33 Vitamin B6 - PO 01/26/19 21:59 25 mg BID DREA Administration ASSESSMENT/PLAN: 33 y/o F at 19 weeks IUP w/ PMHx poorly controlled IDDM, recurrent gastroparesis complicated by J-tube placement and then removal d/t MRSA infection during summer 2017, GERD, HLD, b/l fibroadenomas, anxiety, p/w diffuse abd pain and n/v, admitted to 3W. #abd pain/nausea/vomiting -DDx gastroparesis vs hyperemesis gravidarum -poor tolerance to most anti-emetics -phenergan made PRN -can consider compazine (category C) w/ OBGYN clearance -NS + 20meqKCl @ 125cc/hr -at baseline tolerance of diabetic diet in small frequent meals #DM -cont levemir 22U BID -BGM ACHS, SSI #leukocytosis -resolved #IUP -cont on tocometer, rest per OBGYN #HTN -labetalol held per OBGYN, monitor BP, rest as per OBGYN Medicine team signing off. Patient cleared for discharge from standpoint of medicine. Reconsult as necessary. Thank you for this consultative opportunity. Visit type - Emergency Visit Emergency Visit: No - New Patient This patient is new to me today: No - Critical Care Critical Care patient: No
--- NOTE | 2019-01-24 13:35 | DS ---
Physical Exam-SENIOR OPERATIONS ANALYST Vital Signs: Vital Signs Temperature 98.6 F 01/24/19 06:00 Pulse Rate 74 01/24/19 06:00 Respiratory Rate 18 01/24/19 06:00 Blood Pressure 104/62 01/24/19 06:00 O2 Sat by Pulse Oximetry (%) 100 01/22/19 05:40 Constitutional: Yes: Well Nourished, No Distress, Calm Neck: Yes: WNL Cardiovascular: Yes: WNL Gastrointestinal: Yes: WNL, Normal Bowel Sounds, Soft Musculoskeletal: Yes: WNL Extremities: Yes: WNL Edema: No Neurological: Yes: WNL, Alert, Oriented Labs: CBC, BMP 01/24/19 06:50 01/24/19 07:00 Delivery, Single - [place] Feeding Plan Initial Plan: Elected not to breastfeed exclusively throughout hospitalization Discharge Summary Reason For Visit: HYPERGLYCEMIA, ABD PAIN DURING Current Active Problems Abdominal pain affecting (Acute) Diabetes (Acute) Gastroparesis (Acute) Other Procedures: IV hydration. IV phenergan. insulin therapy Hospital Course: hypoKalemia diabetes abdominal pain gastroparesis Condition: Stable - Instructions Referrals: Maira Oswald MD [Primary Care Provider] - Disposition: HOME - Home Medications Comprehensive Discharge Medication List: Ambulatory Orders Promethazine HCl [Phenergan Plain 6.25 MG/5 ML -] 5 ml PO TID 05/04/18 Insulin Glargine,Hum.rec.anlog [Basaglar Kwikpen U-100] 30 unit SQ BID 06/11/18 Insulin Lispro [Admelog] 100 unit SQ ASDIR PRN 06/11/18 Klonopin 1 mg PO BID 01/22/19 Mirtazapine [Remeron -] 30 mg PO DAILY 01/22/19
== END 2019-01-24 14:20 | disposition home or self-care (01) | DRG 566 ==
LOC: JER 05:39 → JLDR 08:00 → J3W 15:52
PROVIDERS: ADMIT Obstetrics & Gynecology; ATTEND Obstetrics & Gynecology
DX: O24.414 Gestational diabetes mellitus in pregnancy, insulin controlled (principal); O99.342 Other mental disorders complicating pregnancy, second trimester; O75.89 Other specified complications of labor and delivery; K31.84 Gastroparesis; R10.9 Unspecified abdominal pain; E78.5 Hyperlipidemia, unspecified; K21.9 Gastro-esophageal reflux disease without esophagitis; F41.8 Other specified anxiety disorders; M25.572 Pain in left ankle and joints of left foot; E10.65 Type 1 diabetes mellitus with hyperglycemia; D72.829 Elevated white blood cell count, unspecified; O13.2 Gestational [pregnancy-induced] hypertension without significant proteinuria, second trimester; E87.6 Hypokalemia; E83.42 Hypomagnesemia; O21.0 Mild hyperemesis gravidarum; Z3A.19 19 weeks gestation of pregnancy
CPT/HCPCS: 36415; 80048; 80076; 81003; 81015; 82150; 82962; 83036; 83690; 83735; 84100; 85025; 85610; 85730; 86593; 86762; 86850; 86900; 86901; 87340; 99285-25; J0131

== ENCOUNTER 2019-05-05 13:10 | Inpatient (IN) | payer OTHER ==
[~2019-05-05 13:10] MED LIST: ELECTROLYTE-148 SOLN 1,000 ML IV SCH; KCL 10 MEQ IVPB 10 MEQ/100 ML INFUS.BAG IVPB SCH; MAGNESIUM SULFATE IN WATER 2 GM/50 ML IVPB IVPB ONE
[2019-05-05] MEDS ORDERED: BISACODYL 10 MG SUPP.RECT RC PRN (14:09)
[2019-05-05] MEDS ORDERED: WITCH HAZEL 50% (TUCKS) 40 PAD/JAR PAD TP PRN (14:09)
[2019-05-05] MEDS ORDERED: ACETAMINOPHEN 325 MG TABLET (FP) PO PRN (14:09)
[2019-05-05] MEDS ORDERED: IBUPROFEN 600 MG TABLET (FP) PO PRN (14:09)
[2019-05-05] MEDS ORDERED: METHYLERGONOVINE MALEATE 0.2 MG/1 ML AMP IM PRN (14:09)
[2019-05-05] MEDS ORDERED: BENZOCAINE 20% 57 GM BOTTLE TP PRN (14:09)
[2019-05-05] MEDS ORDERED: BENZOCAINE 28 GM HEMORRHOIDAL OINTMENT TP PRN (14:09)
[2019-05-05] MEDS ORDERED: D5W-LR W/ 20 UNITS OXYTOCIN 20 UNIT/1,000 ML INFUS.BAG IV SCH (14:15)
--- NOTE | 2019-05-05 14:20 | HP ---
Past Medical History - Primary Care Physician PCP:: Altaf Handy - Admission Chief Complaint: 34 weeks ,labor History of Present Illness: 33 yo f g5 p 4004 , 34 weeks ,hx of INDM , AMA , chronic n/v care at [facility] ,came to L&D fully dilated and pushing delivered live baby boy , 9/9 , i delivered placenta, no laceration, History Source: Patient Limitations to Obtaining History: No Limitations, Poor Historian - Past Medical History Pulmonary: Yes: Asthma Gastrointestinal: Yes: Constipation, GERD, Other (Gastroparesis) Hepatobiliary: Yes: Cholelithiasis (remoaved by lap choly) ...: 5 ...Para: 5 ... Weeks Gestation by Dates: 34 Endocrine: Yes: Diabetes Mellitus (DM I since age 6) - Past Surgical History Past Surgical History: Yes: Breast Biopsy (fibroadenomas removed bilaterally), Cholecystectomy (Laparoscopic) Hx Myomectomy: No Hx Transabdominal Cerclage: No - Smoking History Smoking history: Unknown if ever smoked Have you smoked in the past 12 months: No Aproximately how many cigarettes per day: 2 - Alcohol/Substance Use Hx Alcohol Use: No History of Substance Use: reports: Marijuana (states starting marijuana after her symptoms began in august) - Social History Usual Living Arrangement: Yes: With Spouse ADL: Independent 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 History of Recent Travel: No Home Medications - Allergies Allergies/Adverse Reactions: Allergies Allergy/AdvReac Type Severity Reaction Status Date / Time shellfish derived Allergy Verified 05/05/19 16:18 famotidine [From Pepcid] AdvReac Verified 05/05/19 16:18 metoclopramide [From Reglan] AdvReac Verified 05/05/19 16:18 ondansetron AdvReac Verified 05/05/19 16:18 - Home Medications Home Medications: Ambulatory Orders Promethazine HCl [Phenergan Plain 6.25 MG/5 ML -] 5 ml PO TID 05/04/18 Insulin Lispro [Admelog] 100 unit SQ ASDIR PRN 06/11/18 Klonopin 1 mg PO BID 01/22/19 Mirtazapine [Remeron -] 30 mg PO DAILY 01/22/19 Promethazine HCl [Phenergan Liquid -] 5 ml PO TID #120 ml 01/24/19 Basaglar Kwikpen U-100 10 units SQ AC 05/05/19 Basaglar Kwikpen U-100 15 units SQ AM 05/05/19 Remeron - 30 tab PO DAILY 05/05/19 Family Disease History - Family Disease History Family Disease History: Diabetes: Mother (Alive: ), Other: Father (Alive: DM, obesity), Mother, Brother (1 brother), Sister (1 sister), Son (3, 1 with eosinophilic esophagitis), Daughter (1, healthy) Review of Systems - Review of Systems Constitutional: reports: Malaise Eyes: reports: No Symptoms HENT: reports: No Symptoms Neck: reports: No Symptoms Cardiovascular: reports: No Symptoms Respiratory: reports: No Symptoms Gastrointestinal: reports: No Symptoms Genitourinary: reports: No Symptoms Breasts: reports: No Symptoms Reported Musculoskeletal: reports: No Symptoms Integumentary: reports: No Symptoms Neurological: reports: No Symptoms Endocrine: reports: No Symptoms Hematology/Lymphatic: reports: No Symptoms Physical Exam - Maternity Constitutional: Yes: Well Nourished, No Distress Eyes: Yes: WNL, Conjunctiva Clear, EOM Intact HENT: Yes: WNL, Atraumatic, Normocephalic Neck: Yes: WNL, Supple, Trachea Midline Cardiovascular: Yes: WNL, Regular Rate and Rhythm Breast(s): Yes: WNL - Vaginal Exam/OB Vaginal Bleediing: Yes Speculum Exam: No - Physical Exam Extremities: Yes: WNL Edema: No Edema: LLE: Trace, RLE: Trace Integumentary: Yes: WNL ...Motor Strength: WNL Psychiatric: Yes: WNL Problem List - Problems (1) with 34 completed weeks gestation Code(s): Z3A.34 - 34 WEEKS GESTATION OF (2) Labor established Code(s): ZLJ4624 - (3) Insulin dependent diabetes mellitus Code(s): E11.9 - TYPE 2 DIABETES MELLITUS WITHOUT COMPLICATIONS; Z79.4 - DEVELOPMENT MGR (CURRENT) USE OF INSULIN (4) Gastroparesis Code(s): K31.84 - GASTROPARESIS (5) Advanced maternal age (AMA) in Code(s): UMY2687 - (6) Hypokalemia Code(s): E87.6 - HYPOKALEMIA Assessment/Plan admit monitor BS K+ replacement
[2019-05-05] MEDS ORDERED: oxyCODONE HCL 5 MG TABLET PO PRN (14:38)
[2019-05-05] MEDS ORDERED: IBUPROFEN 800 MG/8 ML IJ IVPB PRN (14:41)
[2019-05-05] MEDS ORDERED: IBUPROFEN 800 MG/8 ML IJ IVPB ONE ×2 (14:42)
--- NOTE | 2019-05-05 14:44 | PN ---
Delivery - Delivery Vaginal Delivery: Spontaneous Episiotomy/Laceration: None
[2019-05-05 15:15] LABS: BASO % 0.6 % (0-2.0); EOS % 1.5 % (0-4.5); HEMATOCRIT 35.6 % (32.4-45.2); HEMOGLOBIN 12.3 GM/dL (10.7-15.3); MCH 28.9 pg (25.7-33.7); MCHC 34.5 g/dl (32.0-36.0); MEAN CELL VOLUME 83.8 fl (80-96); MEAN PLT VOLUME 9.4 fl (7.5-11.1); MONO % 9.1 % (3.8-10.2); NEUT % 66.8 % (42.8-82.8); PLATELET COUNT 250 K/MM3 (134-434); RBC 4.25 M/mm3 (3.60-5.2); RDW 13.9 % (11.6-15.6); WHITE BLOOD COUNT 6.5 K/mm3 (4.0-10.0)
[2019-05-05 15:29] LABS: INR 0.92 (0.83-1.09); PROTHROMBIN TIME (PATIENT) 10.9 SEC (9.7-13.0)
[2019-05-05 15:31] LABS: ACTIVATED PTT 27.8 SECONDS (25.2-36.5)
[2019-05-05 15:33] LABS: RPR NONREACTIVE (NONREACTIVE)
[2019-05-05 15:37] LABS: COCAINE, UR NEGATIVE ng/ml (CUTOFF=300); METHADONE, UR NEGATIVE ng/ml (CUTOFF=300); OPIATES, URI NEGATIVE ng/ml (CUTOFF=300); PHENCYCLIDINE,URINE NEGATIVE ng/ml (CUTOFF=25); URINE AMPHETAMINES NEGATIVE ng/ml (CUTOFF=500); URINE BARBITURATES NEGATIVE ng/ml (CUTOFF=200); URINE BENZODIAZEPINES NEGATIVE ng/ml (CUTOFF=200)
[2019-05-05 15:37] LABS: ALBUMIN 2.6 g/dl (3.4-5.0); BILIRUBIN,TOTAL 0.4 mg/dL (0.2-1); BLOOD UREA NITROGEN 5.6 mg/dL (7-18); CALCIUM 8.1 mg/dL (8.5-10.1); CREATININE 0.5 mg/dL (0.55-1.3)
[2019-05-05 15:39] LABS: POTASSIUM 2.8 mmol/L (3.5-5.1)
[2019-05-05 15:56] VITALS: BMI 26.6
[2019-05-05] MEDS ORDERED: POTASSIUM CHLORIDE TABS 20 MEQ TABLET.ER (FP) PO ONE ×2 (16:07→23:57)
[2019-05-05] MEDS ORDERED: INSULIN SLIDING SCALE (NOVOLOG) 1 VIAL SQ SCH ×3 (16:30→22:00)
[2019-05-05] MEDS ORDERED: TUBERCULIN PPD 5 TU/0.1ML SYRINGE (IN PATIENT USE ONLY) ID ONE (17:30)
[2019-05-05] MEDS ORDERED: LACTATED RINGERS IVPB ONE (18:30)
[2019-05-05] MEDS ORDERED: DEXTROSE 5% IVPB ONE (18:30)
[2019-05-05] MEDS ORDERED: POTASSIUM CHLORIDE IVPB ONE (18:30)
[2019-05-05] MEDS: PROMETHAZINE HCL 25 MG/1 ML VIAL IM PRN (18:52)
--- NOTE | 2019-05-05 19:22 | CONSULT ---
Consultation: REQUESTING PROVIDER: Dr. Handy CONSULT REQUEST: We have been asked to medically evaluate this patient for Diabetes. HISTORY OF PRESENT ILLNESS: The patient is a 33 year old female with a PMH significant for IDDM, gastroparesis s/p J-tube and removal, and anxiety who is s/p today. Medicine was consulted for DM management. Patient currently complains of nausea. States that she takes basaglar 15 units in the AM and 10units in the PM. She also endorses using insulin sliding scale at home. Patient has a history of DKA and often comes into the ED c/o nausea and vomiting 2/2 DM gastroparesis. Patient follows with Dr. Feng as an outpatient. REVIEW OF SYSTEMS: CONSTITUTIONAL: Absent: fever, chills, diaphoresis, generalized weakness, malaise, loss of appetite, weight change HEENT: Absent: rhinorrhea, nasal congestion, throat pain, throat swelling, difficulty swallowing, mouth swelling, ear pain, eye pain, visual changes CARDIOVASCULAR: Absent: chest pain, syncope, palpitations, irregular heart rate, lightheadedness , peripheral edema RESPIRATORY: Absent: cough, shortness of breath, dyspnea with exertion, orthopnea, wheezing, stridor, hemoptysis GASTROINTESTINAL: Absent: abdominal pain, diarrhea, constipation, melena, hematochezia GENITOURINARY: Absent: dysuria, frequency, urgency, hesitancy, hematuria, flank pain, genital pain MUSCULOSKELETAL: Absent: myalgia, arthralgia, joint swelling, back pain, neck pain SKIN: Absent: rash, itching, pallor HEMATOLOGIC/IMMUNOLOGIC: Absent: easy bleeding, easy bruising, lymphadenopathy, frequent infections ENDOCRINE: Absent: unexplained weight gain, unexplained weight loss, heat intolerance, cold intolerance NEUROLOGIC: Absent: headache, focal weakness or paresthesias, dizziness, unsteady gait, seizure, mental status changes, bladder or bowel incontinence PSYCHIATRIC: Absent: anxiety, depression, suicidal or homicidal ideation, hallucinations. PHYSICAL EXAMINATION Vital Signs - 24 hr 05/05/19 05/05/19 05/05/19 13:10 14:00 14:15 Temperature 98 F Pulse Rate 78 80 86 Respiratory 20 20 20 Rate Blood Pressure 150/90 156/89 148/89 O2 Sat by Pulse 100 100 Oximetry (%) 05/05/19 05/05/19 05/05/19 14:30 14:45 17:05 Temperature 98 F 98.4 F Pulse Rate 78 84 68 Respiratory 20 20 20 Rate Blood Pressure 152/99 152/99 138/88 O2 Sat by Pulse 98 100 Oximetry (%) GENERAL: Awake, alert, and fully oriented, in no acute distress. NECK: Normal range of motion, supple without lymphadenopathy, JVD, or masses. LUNGS: Breath sounds equal, clear to auscultation bilaterally. No wheezes, and no crackles. No accessory muscle use. HEART: Regular rate and rhythm, normal S1 and S2 without murmur, rub or gallop. ABDOMEN: Soft, diffuse tenderness to the palpation, normoactive bowel sounds, no guarding, no rebound, no masses. No hepatomegaly or splenomegaly. LOWER EXTREMITIES: 2+ pulses, warm, well-perfused. No calf tenderness. No peripheral edema. NEUROLOGICAL: Cranial nerves II-X intact. Normal speech. PSYCHIATRIC: Cooperative. Good eye contact. Appropriate mood and affect. SKIN: Warm, dry, normal turgor, no rashes or lesions noted. Laboratory Results - last 24 hr 05/05/19 05/05/19 05/05/19 14:10 14:58 14:58 WBC 6.5 RBC 4.25 Hgb 12.3 Hct 35.6 MCV 83.8 MCH 28.9 MCHC 34.5 RDW 13.9 Plt Count 250 MPV 9.4 D Absolute Neuts (auto) 4.3 Neutrophils % 66.8 Lymphocytes % 22.0 D Monocytes % 9.1 Eosinophils % 1.5 D Basophils % 0.6 Nucleated RBC % 0 PT with INR 10.90 INR 0.92 PTT (Actin FS) 27.8 Sodium Potassium Chloride Carbon Dioxide Anion Gap BUN Creatinine Est GFR (CKD-EPI)AfAm Est GFR (CKD-EPI)NonAf POC Glucometer Random Glucose Calcium Total Bilirubin AST ALT Alkaline Phosphatase Total Protein Albumin Opiates Screen Negative Methadone Screen Negative Barbiturate Screen Negative Phencyclidine Screen Negative Ur Amphetamines Screen Negative MDMA (Ecstasy) Screen Positive A* Benzodiazepines Screen Negative Cocaine Screen Negative U Marijuana (THC) Screen Positive A* RPR Titer HIV 1&2 Antibody Screen HIV P24 Antigen Blood Type Antibody Screen 05/05/19 05/05/19 05/05/19 14:58 14:58 14:58 WBC RBC Hgb Hct MCV MCH MCHC RDW Plt Count MPV Absolute Neuts (auto) Neutrophils % Lymphocytes % Monocytes % Eosinophils % Basophils % Nucleated RBC % PT with INR INR PTT (Actin FS) Sodium 139 Potassium 2.8 L* Chloride 107 Carbon Dioxide 24 Anion Gap 8 BUN 5.6 L Creatinine 0.5 L Est GFR (CKD-EPI)AfAm 145.33 Est GFR (CKD-EPI)NonAf 125.39 POC Glucometer Random Glucose 122 H Calcium 8.1 L Total Bilirubin 0.4 AST 26 ALT 23 Alkaline Phosphatase 253 H Total Protein 6.0 L Albumin 2.6 L Opiates Screen Methadone Screen Barbiturate Screen Phencyclidine Screen Ur Amphetamines Screen MDMA (Ecstasy) Screen Benzodiazepines Screen Cocaine Screen U Marijuana (THC) Screen RPR Titer Nonreactive HIV 1&2 Antibody Screen Negative HIV P24 Antigen Negative Blood Type B POSITIVE Antibody Screen Negative 05/05/19 17:16 WBC RBC Hgb Hct MCV MCH MCHC RDW Plt Count MPV Absolute Neuts (auto) Neutrophils % Lymphocytes % Monocytes % Eosinophils % Basophils % Nucleated RBC % PT with INR INR PTT (Actin FS) Sodium Potassium Chloride Carbon Dioxide Anion Gap BUN Creatinine Est GFR (CKD-EPI)AfAm Est GFR (CKD-EPI)NonAf POC Glucometer 102 Random Glucose Calcium Total Bilirubin AST ALT Alkaline Phosphatase Total Protein Albumin Opiates Screen Methadone Screen Barbiturate Screen Phencyclidine Screen Ur Amphetamines Screen MDMA (Ecstasy) Screen Benzodiazepines Screen Cocaine Screen U Marijuana (THC) Screen RPR Titer HIV 1&2 Antibody Screen HIV P24 Antigen Blood Type Antibody Screen Active Medications Generic Name Dose Route Start Last Admin Trade Name Freq PRN Reason Stop Dose Admin Acetaminophen 650 mg 05/05/19 14:09 Tylenol - PO Q3H PRN FEVER Benzocaine 1 spray 05/05/19 14:09 Americaine 20% Cornelius - TP PRN PRN Pain - Topical Benzocaine 1 applic 05/05/19 14:09 Americaine Ointment - TP PRN PRN Pain - Topical Bisacodyl 10 mg 05/05/19 14:09 Dulcolax Suppository - RC PRN PRN CONSTIPATION Clonazepam 1 mg 05/05/19 18:30 Klonopin - PO BID DREA Ferrous Sulfate 325 mg 05/05/19 22:00 Feosol - PO BID DREA Dextrose/Lactated Ringer's 20 unit in 1,000 mls @ 125 mls/hr 05/05/19 14:15 05/05/19 14:00 Pitocin 20 Units In D5-Lr - IV 05/05/19 22:14 125 mls/hr ASDIR DREA Administration Parenteral Electrolytes 1,000 mls @ 125 mls/hr 05/05/19 13:10 05/05/19 13:45 Plasma-Lyte 148 - IV 125 mls/hr ASDIR DREA Administration Potassium Chloride 20 meq/ 510 mls @ 125 mls/hr 05/05/19 18:30 Dextrose/Lactated Ringer's IVPB 05/05/19 22:34 ONCE ONE Ibuprofen 600 mg 05/05/19 14:09 Motrin - PO Q4H PRN PAIN LEVEL 1-5 Ibuprofen 600 mg 05/05/19 14:41 Caldolor Injection - IVPB Q6H PRN FEVER Insulin Aspart 1 vial 05/05/19 22:00 Novolog Vial Sliding Scale - SQ ACHS DREA Protocol Methylergonovine Maleate 0.2 mg 05/05/19 14:09 Methergine Injection - IM Q4H PRN EXCESSIVE BLEEDING (L&D) Non-Formulary Medication 10 units 05/05/19 19:30 Basaglar Kwikpen U-100 SQ AC DREA Non-Formulary Medication 15 units 05/06/19 07:00 Basaglar Kwikpen U-100 SQ AM DREA Oxycodone HCl 5 mg 05/05/19 14:38 Roxicodone - PO Q6H PRN PAIN LEVEL 6-10 Multivit/Folic Acid/Iron 1 tab 05/06/19 10:00 Vitamins (Sjr) - PO DAILY DREA Promethazine HCl 25 mg 05/05/19 18:18 05/05/19 18:52 Phenergan Injection - IM 25 mg Q6H PRN Administration NAUSEA AND/OR VOMITING Senna/Docusate Sodium 2 tablet 05/06/19 22:00 Pericolace - PO HS PRN CONSTIPATION Witch Maranda/Glycerin 1 pad 05/05/19 14:09 Tucks Pads - TP PRN PRN Pain - Topical ASSESSMENT/PLAN: 33 year old female with a PMH significant for IDDM, gastroparesis s/p J-tube and removal, and anxiety s/p uncomplicated today. #DM -Will resume home Basaglar 15u in the AM and 10u in the PM -ISS q6h per DRY CANS OPERATOR -BGM q6h per DRY CANS OPERATOR -on D5w-LR w/ Pitocin #FEN -diabetic diet -Hypokalemia noted. unable to tolerate PO KCL. 20meq KCL IV ordered. Will follow. Dispo: We will continue to follow the patient. Thank you for this consultative opportunity. Visit type - Emergency Visit Emergency Visit: Yes ED Registration Date: 05/05/19 Care time: The patient presented to the Emergency Department on the above date and was hospitalized for further evaluation of their emergent condition. - New Patient This patient is new to me today: Yes Date on this admission: 05/05/19 - Critical Care Critical Care patient: No
--- NOTE | 2019-05-05 19:25 | PN ---
Teaching Attending Note Name of Resident: Benton Hernandez ATTENDING PHYSICIAN STATEMENT I saw and evaluated the patient. I reviewed the resident's note and discussed the case with the resident. I agree with the resident's findings and plan as documented. SUBJECTIVE: Seen and examined; please refer to resident note for further historical information. Thank you for allowing [facility] to take part in the ongoing care of your patient. Briefly, this is a Type 1 Diabetic who presents to the OBGYN service for vaginal delivery. She takes 10 in the morning and 15 at night of the basaglar and SSI. She has history of DKA, DM gastoparesis. She is hemodynamically stable and afebrile. She has some nausea now and has just gotten her phenergn. 10 sys ROS done and negative aside from HPI PMH, PSH, FH, SH reviewed Home Medications Medication Instructions Recorded Promethazine HCl [Phenergan Plain 5 ml PO TID 05/04/18 6.25 MG/5 ML -] Insulin Glargine,Hum.rec.anlog 30 unit SQ BID 06/11/18 [Basaglar Kwikpen U-100] Insulin Lispro [Admelog] 100 unit SQ ASDIR PRN 06/11/18 Klonopin 1 mg PO BID 01/22/19 Mirtazapine [Remeron -] 30 mg PO DAILY 01/22/19 Promethazine HCl [Phenergan Liquid 5 ml PO TID #120 ml 01/24/19 -] Basaglar Kwikpen U-100 10 units SQ AC 05/05/19 Basaglar Kwikpen U-100 15 units SQ AM 05/05/19 Remeron - 30 tab PO DAILY 05/05/19 Updating list OBJECTIVE: VS, labs, imaging reviewed NAD, AAO, resting comfortably in bed NC AT EOMI PERRLA FFBU RRR s1/2 no mgr Lungs CTAB, w/ sym exp NT ND +BS CN2-12 wnl, no fnd Normal mood, appropriate behavior ASSESSMENT AND PLAN: Patient presents as a consult to [facility] for T1DM post childbirth 1) S/P Childbirth Day #0 -Management per OBGYN; monitor for stereotyped complications 2) DM1 -No DKA; QD BMP and AC+HS fsg checks -Continue home basal and SSI; adjust basal if needed -Diabetic diet -Followup with PCP for A1c, etc. 3) Nausea/DM Gparesis -Continue PRN medications; if not toleratng diet (which she is now) will need to adjust insulin Full Code We will continue to follow
[2019-05-05] MEDS ORDERED: BASAGLAR U SQ SCH (19:30)
[2019-05-05 21:52] LABS: BLOOD UREA NITROGEN 5.5 mg/dL (7-18); CREATININE 0.4 mg/dL (0.55-1.3); MAGNESIUM 1.8 mg/dL (1.8-2.4)
[2019-05-05 21:55] LABS: POTASSIUM 2.9 mmol/L (3.5-5.1)
[2019-05-05] MEDS ORDERED: INSULIN (LEVEMIR) 100 UNITS/ML UNITS SQ SCH (22:00)
[2019-05-05] MEDS: clonazePAM 0.5 MG TABLET PO SCH (22:24)
[2019-05-05] MEDS: FERROUS SO4 325 MG TABLET (FP) PO SCH (22:28)
[2019-05-06] MEDS ORDERED: D5W-LR W/ 20 UNITS OXYTOCIN 20 UNIT/1,000 ML INFUS.BAG IV SCH (01:00)
[2019-05-06 06:19] LABS: BASO % 0.3 % (0-2.0); EOS % 1.4 % (0-4.5); HEMATOCRIT 28.6 % (32.4-45.2); HEMOGLOBIN 9.9 GM/dL (10.7-15.3); LYMPH % 17.7 % (8-40); MCH 29.5 pg (25.7-33.7); MCHC 34.7 g/dl (32.0-36.0); MEAN CELL VOLUME 85.1 fl (80-96); MEAN PLT VOLUME 9.6 fl (7.5-11.1); MONO % 9.3 % (3.8-10.2); NEUT % 71.3 % (42.8-82.8); PLATELET COUNT 215 K/MM3 (134-434); RBC 3.36 M/mm3 (3.60-5.2); RDW 13.8 % (11.6-15.6); WHITE BLOOD COUNT 7.9 K/mm3 (4.0-10.0)
[2019-05-06 06:42] LABS: CALCIUM 7.7 mg/dL (8.5-10.1); CREATININE 0.4 mg/dL (0.55-1.3)
[2019-05-06] MEDS: INSULIN SLIDING SCALE (NOVOLOG) 1 VIAL SQ SCH ×4 (06:55→21:58)
[2019-05-06] MEDS ORDERED: INSULIN (LEVEMIR) 100 UNITS/ML UNITS SQ SCH (07:00)
[2019-05-06] MEDS ORDERED: INSULIN GLARGINE SQ SCH (07:00)
[2019-05-06] MEDS ORDERED: POTASSIUM CHLORIDE TABS 20 MEQ TABLET.ER (FP) PO ONE (07:50)
--- NOTE | 2019-05-06 09:06 | PN ---
Progress Note (short form) - Note Progress Note: Subjective: feels better today, no nausea. ate a sandwich last night after hypoglycemia episode. denies fever ro chills. has some spotting form vagina. has abd cramping Objective: Vital Signs: Last Vital Signs Temp Pulse Resp BP Pulse Ox 98 F 92 H 18 128/78 100 05/06/19 08:00 05/06/19 08:00 05/06/19 08:00 05/06/19 08:00 05/05/19 21:00 Laboratory Results - last 24 hr 05/05/19 05/05/19 05/05/19 14:10 14:58 14:58 WBC 6.5 RBC 4.25 Hgb 12.3 Hct 35.6 MCV 83.8 MCH 28.9 MCHC 34.5 RDW 13.9 Plt Count 250 MPV 9.4 D Absolute Neuts (auto) 4.3 Neutrophils % 66.8 Lymphocytes % 22.0 D Monocytes % 9.1 Eosinophils % 1.5 D Basophils % 0.6 Nucleated RBC % 0 PT with INR 10.90 INR 0.92 PTT (Actin FS) 27.8 Sodium Potassium Chloride Carbon Dioxide Anion Gap BUN Creatinine Est GFR (CKD-EPI)AfAm Est GFR (CKD-EPI)NonAf POC Glucometer Random Glucose Calcium Magnesium Total Bilirubin AST ALT Alkaline Phosphatase Total Protein Albumin Opiates Screen Negative Methadone Screen Negative Barbiturate Screen Negative Phencyclidine Screen Negative Ur Amphetamines Screen Negative MDMA (Ecstasy) Screen Positive A* Benzodiazepines Screen Negative Cocaine Screen Negative U Marijuana (THC) Screen Positive A* RPR Titer HIV 1&2 Antibody Screen HIV P24 Antigen Blood Type Antibody Screen 05/05/19 05/05/19 05/05/19 14:58 14:58 14:58 WBC RBC Hgb Hct MCV MCH MCHC RDW Plt Count MPV Absolute Neuts (auto) Neutrophils % Lymphocytes % Monocytes % Eosinophils % Basophils % Nucleated RBC % PT with INR INR PTT (Actin FS) Sodium 139 Potassium 2.8 L* Chloride 107 Carbon Dioxide 24 Anion Gap 8 BUN 5.6 L Creatinine 0.5 L Est GFR (CKD-EPI)AfAm 145.33 Est GFR (CKD-EPI)NonAf 125.39 POC Glucometer Random Glucose 122 H Calcium 8.1 L Magnesium Total Bilirubin 0.4 AST 26 ALT 23 Alkaline Phosphatase 253 H Total Protein 6.0 L Albumin 2.6 L Opiates Screen Methadone Screen Barbiturate Screen Phencyclidine Screen Ur Amphetamines Screen MDMA (Ecstasy) Screen Benzodiazepines Screen Cocaine Screen U Marijuana (THC) Screen RPR Titer Nonreactive HIV 1&2 Antibody Screen Negative HIV P24 Antigen Negative Blood Type B POSITIVE Antibody Screen Negative 05/05/19 05/05/19 05/05/19 17:16 20:20 20:57 WBC RBC Hgb Hct MCV MCH MCHC RDW Plt Count MPV Absolute Neuts (auto) Neutrophils % Lymphocytes % Monocytes % Eosinophils % Basophils % Nucleated RBC % PT with INR INR PTT (Actin FS) Sodium 141 Potassium 2.9 L* Chloride 109 H Carbon Dioxide 24 Anion Gap 8 BUN 5.5 L Creatinine 0.4 L Est GFR (CKD-EPI)AfAm 156.40 Est GFR (CKD-EPI)NonAf 134.94 POC Glucometer 102 68 Random Glucose 75 Calcium 8.0 L Magnesium 1.8 Total Bilirubin AST ALT Alkaline Phosphatase Total Protein Albumin Opiates Screen Methadone Screen Barbiturate Screen Phencyclidine Screen Ur Amphetamines Screen MDMA (Ecstasy) Screen Benzodiazepines Screen Cocaine Screen U Marijuana (THC) Screen RPR Titer HIV 1&2 Antibody Screen HIV P24 Antigen Blood Type Antibody Screen 05/05/19 05/06/19 05/06/19 23:43 01:05 04:29 WBC RBC Hgb Hct MCV MCH MCHC RDW Plt Count MPV Absolute Neuts (auto) Neutrophils % Lymphocytes % Monocytes % Eosinophils % Basophils % Nucleated RBC % PT with INR INR PTT (Actin FS) Sodium Potassium Chloride Carbon Dioxide Anion Gap BUN Creatinine Est GFR (CKD-EPI)AfAm Est GFR (CKD-EPI)NonAf POC Glucometer 68 53 153 Random Glucose Calcium Magnesium Total Bilirubin AST ALT Alkaline Phosphatase Total Protein Albumin Opiates Screen Methadone Screen Barbiturate Screen Phencyclidine Screen Ur Amphetamines Screen MDMA (Ecstasy) Screen Benzodiazepines Screen Cocaine Screen U Marijuana (THC) Screen RPR Titer HIV 1&2 Antibody Screen HIV P24 Antigen Blood Type Antibody Screen 05/06/19 05/06/19 05/06/19 06:00 06:00 06:00 WBC 7.9 RBC 3.36 L Hgb 9.9 L Hct 28.6 L D MCV 85.1 MCH 29.5 MCHC 34.7 RDW 13.8 Plt Count 215 MPV 9.6 Absolute Neuts (auto) 5.7 Neutrophils % 71.3 Lymphocytes % 17.7 Monocytes % 9.3 Eosinophils % 1.4 Basophils % 0.3 Nucleated RBC % 0 PT with INR INR PTT (Actin FS) Sodium 141 Potassium 3.0 L Chloride 108 H Carbon Dioxide 25 Anion Gap 8 BUN 4.0 L Creatinine 0.4 L Est GFR (CKD-EPI)AfAm 156.40 Est GFR (CKD-EPI)NonAf 134.94 POC Glucometer Random Glucose 188 H Calcium 7.7 L Magnesium 2.1 Total Bilirubin AST ALT Alkaline Phosphatase Total Protein Albumin Opiates Screen Methadone Screen Barbiturate Screen Phencyclidine Screen Ur Amphetamines Screen MDMA (Ecstasy) Screen Benzodiazepines Screen Cocaine Screen U Marijuana (THC) Screen RPR Titer HIV 1&2 Antibody Screen HIV P24 Antigen Blood Type Antibody Screen 05/06/19 06:24 WBC RBC Hgb Hct MCV MCH MCHC RDW Plt Count MPV Absolute Neuts (auto) Neutrophils % Lymphocytes % Monocytes % Eosinophils % Basophils % Nucleated RBC % PT with INR INR PTT (Actin FS) Sodium Potassium Chloride Carbon Dioxide Anion Gap BUN Creatinine Est GFR (CKD-EPI)AfAm Est GFR (CKD-EPI)NonAf POC Glucometer 196 Random Glucose Calcium Magnesium Total Bilirubin AST ALT Alkaline Phosphatase Total Protein Albumin Opiates Screen Methadone Screen Barbiturate Screen Phencyclidine Screen Ur Amphetamines Screen MDMA (Ecstasy) Screen Benzodiazepines Screen Cocaine Screen U Marijuana (THC) Screen RPR Titer HIV 1&2 Antibody Screen HIV P24 Antigen Blood Type Antibody Screen Physical Exam: NAD , AAOx3 , MMM CV: RRR, no MRG Lungs: CATB Abd: soft, ND, TTP in periumbilical area and surapubic areas. uterus ball is felt up to umbililcus Ext : no edemma or erythema. onycomycosis , no Tinea pedis Assessment/Plan: 33 y/o lady with h/o bipolar, DM I, polysubstance abuseand gastroperesis who was admitted fro vaginal delivery and medicine was consulted for management of her DM . 1- DM I: was hypoglycemic last night . Oxytocin was given in D5 instead of NS. off oxytocin now - po intake improved, and no more nausea. sugar increased to 195. - if oxytocin is still needed , please give in NS not in D5 - monitor post-breakfast sugar and pre-lunch sugar to decide on levemir dose today. - will probably need to decrease evening dose of levemir given hypoglycemia episodes at night even as out patient. will decide depending on sugar levels today - avoid HS coverage of SSI 2- H/O HTn during : was supposed to be on labetalol but did not take it. - monitor BP closely 3- Acute blood loss anemia: monitor. No need fro transfusion yet 4- s/p vaginal delivery 05/05. - per [facility] . - ? breast feeding in setting of MArijuana and MDMA use 5- Recommend DVT px if no concern for continued bleeding. Thanks for this consultation. will cont to follow Visit type - Emergency Visit Emergency Visit: Yes ED Registration Date: 05/05/19 Care time: The patient presented to the Emergency Department on the above date and was hospitalized for further evaluation of their emergent condition. - New Patient This patient is new to me today: Yes Date on this admission: 05/06/19 - Critical Care Critical Care patient: No
[2019-05-06] MEDS: PRENATAL VITAMINS W/ FOLIC ACID TABLET (FP) PO SCH (09:33)
[2019-05-06] MEDS: FERROUS SO4 325 MG TABLET (FP) PO SCH ×2 (09:33→21:57)
[2019-05-06] MEDS: clonazePAM 0.5 MG TABLET PO SCH ×2 (09:33→21:57)
--- NOTE | 2019-05-06 09:35 | PN ---
Progress Note (short form) - Note Progress Note: s/p DM , hypokalemia no diziness , no active vaginal bleeding has mild low abdominal cramps, no N/V abdomen soft, no distension, no cva uterus firm lochia mild no calf tenderness CBC, BMP 05/06/19 06:00 05/06/19 06:00 Last Vital Signs Temp Pulse Resp BP Pulse Ox 98 F 92 H 18 128/78 100 05/06/19 08:00 05/06/19 08:00 05/06/19 08:00 05/06/19 08:00 05/05/19 21:00 impression ppd 1 , no active vaginal bleeding tolorating diet cont BGM ,monitor K+ Problem List - Problems (1) with 34 completed weeks gestation Code(s): Z3A.34 - 34 WEEKS GESTATION OF (2) Labor established Code(s): ERL1286 - (3) Insulin dependent diabetes mellitus Code(s): E11.9 - TYPE 2 DIABETES MELLITUS WITHOUT COMPLICATIONS; Z79.4 - CORRECTION (CURRENT) USE OF INSULIN (4) Gastroparesis Code(s): K31.84 - GASTROPARESIS (5) Advanced maternal age (AMA) in Code(s): LCB3249 - (6) Hypokalemia Code(s): E87.6 - HYPOKALEMIA
[2019-05-06] MEDS: PROMETHAZINE HCL 25 MG/1 ML VIAL IM PRN (11:42)
--- NOTE | 2019-05-06 16:11 | PN ---
Progress Note (short form) - Note Progress Note: Asked to see with a known psychiatry hx of depression/anxiety s/p vaginal delivery 04/05. She is being seen today to assist in safe discharge planning. Patient history is contradictory as to the course of her psychiatric illness. During this hospitalization , urine tox tested positive for Ecstasy and Marijuana. She was started on medical MJ in April of last year, she reports. Patient denies mental health contact initially but as the interview progresses she admitted that she has a mental health psychotherapist at [address] [place] [address]. She stated that her next appointment is May 12. According to her, the psychiatrist did not feel that she needed medications and that Remeron was ordered by her GI doctor for her nausea and vomiting.?She has a hx of gastroparesis. She is also on klonopin whch she took prn during her and stopped taking remeron during her . stated that she has no hx of psychiatric hospitalization, suicidal attempt, or post partrum depression. She has 5 children and has never experienced an increased in depressive symptoms after so far She does not intend to breast feed due to MJ use. She lives with her 5 children and has uncles and aunts live here in [place] with whom she is in touch. Also, the baby's father visits q day, she reported. Patient was found awake, alert and x3/situation Mood is neutral," Im just tired!" Affect congruent Speech is logical and coherent No psychotic symptoms elicited No suicidal/homicidal ideation \\Rec. Child welfare is involved in the case. She denies use of Esctasy She understands the need to follow up with rn utilization management um Patient has an appointment with psychotherapist May 12 and intends make that visit Post signs and symptoms reviewed
--- NOTE | 2019-05-06 21:13 | CONSULT ---
Consult Consult Specialty:: endocrine Referred by:: gynecology Reason for Consultation:: dm type 1 - History of Present Illness Chief Complaint: nausea and high sugars History of Present Illness: 33 year old female with a PMH significant for DM1, history of DKA,gastroparesis s/p J-tube and removal.she has had recurrent nausea/ upset stomach, . she takes basaglar 15 units in the AM and 10units in the PM. She also uses insulin sliding scale at home. she admits difficulty controlling bs,/o nausea and vomiting.no fever chills,or diarhea. - Past Medical History Pulmonary: Yes: Asthma Gastrointestinal: Yes: Constipation, GERD, Other (Gastroparesis) Hepatobiliary: Yes: Cholelithiasis (remoaved by simin berrios) ...LMP: 04/29/18 Endocrine: Yes: Diabetes Mellitus (DM I since age 6) - Past Surgical History Past Surgical History: Yes: Breast Biopsy (fibroadenomas removed bilaterally), Cholecystectomy (Laparoscopic) - Alcohol/Substance Use Hx Alcohol Use: No History of Substance Use: reports: Marijuana (states starting marijuana after her symptoms began in august) - Smoking History Smoking history: Unknown if ever smoked Have you smoked in the past 12 months: No Aproximately how many cigarettes per day: 2 - Social History Usual Living Arrangement: Alone ADL: Independent 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 History of Recent Travel: No Home Medications - Allergies Allergies/Adverse Reactions: Allergies Allergy/AdvReac Type Severity Reaction Status Date / Time shellfish derived Allergy Verified 05/05/19 16:18 famotidine [From Pepcid] AdvReac Verified 05/05/19 16:18 metoclopramide [From Reglan] AdvReac Verified 05/05/19 16:18 ondansetron AdvReac Verified 05/05/19 16:18 - Home Medications Home Medications: Ambulatory Orders Promethazine HCl [Phenergan Plain 6.25 MG/5 ML -] 5 ml PO TID 05/04/18 Insulin Lispro [Admelog] 100 unit SQ ASDIR PRN 06/11/18 Klonopin 1 mg PO BID 01/22/19 Mirtazapine [Remeron -] 30 mg PO DAILY 01/22/19 Promethazine HCl [Phenergan Liquid -] 5 ml PO TID #120 ml 01/24/19 Basaglar Kwikpen U-100 10 units SQ AC 05/05/19 Basaglar Kwikpen U-100 15 units SQ AM 05/05/19 Remeron - 30 tab PO DAILY 05/05/19 Family Disease History - Family Disease History Family Disease History: Diabetes: Mother (Alive: ), Other: Father (Alive: DM, obesity), Mother, Brother (1 brother), Sister (1 sister), Son (3, 1 with eosinophilic esophagitis), Daughter (1, healthy) Review of Systems - Review of Systems Constitutional: reports: Weakness Eyes: reports: Floaters HENT: reports: No Symptoms Neck: reports: No Symptoms Cardiovascular: reports: No Symptoms Respiratory: reports: No Symptoms Gastrointestinal: reports: Nausea Genitourinary: reports: No Symptoms Musculoskeletal: reports: No Symptoms Endocrine: reports: Increased Hunger, Increased Thirst Physical Exam Vital Signs: Vital Signs Temperature 98 F 05/06/19 08:00 Pulse Rate 84 05/06/19 12:30 Respiratory Rate 18 05/06/19 12:30 Blood Pressure 136/88 05/06/19 12:30 O2 Sat by Pulse Oximetry (%) 100 05/05/19 21:00 Constitutional: Yes: Calm Eyes: Yes: EOM Intact HENT: Yes: Normocephalic Neck: Yes: Trachea Midline Cardiovascular: Yes: Regular Rate and Rhythm Respiratory: Yes: CTA Bilaterally Gastrointestinal: Yes: Normal Bowel Sounds ...Rectal Exam: Yes: Deferred Renal/: Yes: WNL Musculoskeletal: Yes: Muscle Pain, Muscle Weakness Edema: No Neurological: Yes: Alert, Oriented Labs: CBC, BMP 05/06/19 06:00 05/06/19 06:00 Problem List - Problems (1) Advanced maternal age (AMA) in Code(s): [id number] - (2) Gastroparesis Code(s): K31.84 - GASTROPARESIS (3) Hypokalemia Code(s): E87.6 - HYPOKALEMIA (4) Insulin dependent diabetes mellitus Code(s): E11.9 - TYPE 2 DIABETES MELLITUS WITHOUT COMPLICATIONS; Z79.4 - DRAWER WAXER (CURRENT) USE OF INSULIN Assessment/Plan Current Active Problems iddm,type 1 Advanced maternal age (AMA) in (Acute) Gastroparesis (Acute) Hypokalemia (Acute) Insulin dependent diabetes mellitus (Acute) Labor established (Acute) with 34 completed weeks gestation (Acute) Abnormal Lab Results 05/05/19 05/06/19 05/06/19 20:20 06:00 06:00 RBC 3.36 L Hgb 9.9 L Hct 28.6 L D Potassium 2.9 L* 3.0 L Chloride 109 H 108 H BUN 5.5 L 4.0 L Creatinine 0.4 L 0.4 L Random Glucose 188 H Calcium 8.0 L 7.7 L Laboratory Results - last 24 hr 05/05/19 05/05/19 05/06/19 20:20 23:43 01:05 WBC RBC Hgb Hct MCV MCH MCHC RDW Plt Count MPV Absolute Neuts (auto) Neutrophils % Lymphocytes % Monocytes % Eosinophils % Basophils % Nucleated RBC % Sodium 141 Potassium 2.9 L* Chloride 109 H Carbon Dioxide 24 Anion Gap 8 BUN 5.5 L Creatinine 0.4 L Est GFR (CKD-EPI)AfAm 156.40 Est GFR (CKD-EPI)NonAf 134.94 POC Glucometer 68 53 Random Glucose 75 Calcium 8.0 L Magnesium 1.8 05/06/19 05/06/19 05/06/19 04:29 06:00 06:00 WBC 7.9 RBC 3.36 L Hgb 9.9 L Hct 28.6 L D MCV 85.1 MCH 29.5 MCHC 34.7 RDW 13.8 Plt Count 215 MPV 9.6 Absolute Neuts (auto) 5.7 Neutrophils % 71.3 Lymphocytes % 17.7 Monocytes % 9.3 Eosinophils % 1.4 Basophils % 0.3 Nucleated RBC % 0 Sodium Potassium Chloride Carbon Dioxide Anion Gap BUN Creatinine Est GFR (CKD-EPI)AfAm Est GFR (CKD-EPI)NonAf POC Glucometer 153 Random Glucose Calcium Magnesium 2.1 05/06/19 05/06/19 05/06/19 06:00 06:24 10:31 WBC RBC Hgb Hct MCV MCH MCHC RDW Plt Count MPV Absolute Neuts (auto) Neutrophils % Lymphocytes % Monocytes % Eosinophils % Basophils % Nucleated RBC % Sodium 141 Potassium 3.0 L Chloride 108 H Carbon Dioxide 25 Anion Gap 8 BUN 4.0 L Creatinine 0.4 L Est GFR (CKD-EPI)AfAm 156.40 Est GFR (CKD-EPI)NonAf 134.94 POC Glucometer 196 95 Random Glucose 188 H Calcium 7.7 L Magnesium 05/06/19 05/06/19 05/06/19 11:32 16:31 20:43 WBC RBC Hgb Hct MCV MCH MCHC RDW Plt Count MPV Absolute Neuts (auto) Neutrophils % Lymphocytes % Monocytes % Eosinophils % Basophils % Nucleated RBC % Sodium Potassium Chloride Carbon Dioxide Anion Gap BUN Creatinine Est GFR (CKD-EPI)AfAm Est GFR (CKD-EPI)NonAf POC Glucometer 96 61 114 Random Glucose Calcium Magnesium plan: levemir 15 units am dc hs levemir bgm qid novolog scale hba1c outpatient close monitoring dm
[2019-05-06] MEDS ORDERED: INSULIN SLIDING SCALE (NOVOLOG) 1 VIAL SQ SCH (21:19)
[2019-05-06] MEDS ORDERED: SENNOSIDES/DOCUSATE COMBO (SENNA PLUS) TABLET (UD) PO PRN (22:00)
[2019-05-07] MEDS: INSULIN SLIDING SCALE (NOVOLOG) 1 VIAL SQ SCH (06:13)
[2019-05-07 07:44] LABS: HEMATOCRIT 35.4 % (32.4-45.2); HEMOGLOBIN 12.1 GM/dL (10.7-15.3); MCHC 34.1 g/dl (32.0-36.0); MEAN CELL VOLUME 85.2 fl (80-96); MEAN PLT VOLUME 9.3 fl (7.5-11.1); RBC 4.16 M/mm3 (3.60-5.2); RDW 13.8 % (11.6-15.6); WHITE BLOOD COUNT 6.5 K/mm3 (4.0-10.0)
[2019-05-07 08:25] VITALS: BP 134/86; PULSE 88; TEMP 97.9
--- NOTE | 2019-05-07 09:18 | DS ---
Physical Exam-SUPERINTENDENT STATIONS Vital Signs: Vital Signs Temperature 97.9 F 05/07/19 08:21 Pulse Rate 88 05/07/19 08:21 Respiratory Rate 18 05/07/19 08:21 Blood Pressure 134/86 05/07/19 08:21 O2 Sat by Pulse Oximetry (%) 100 05/05/19 21:00 Constitutional: Yes: Anxious, Cachectic Eyes: Yes: WNL, Conjunctiva Clear, EOM Intact HENT: Yes: WNL, Atraumatic, Normocephalic Neck: Yes: WNL, Supple, Trachea Midline Cardiovascular: Yes: WNL, Regular Rate and Rhythm Respiratory: Yes: WNL, Regular, CTA Bilaterally Gastrointestinal: Yes: WNL ...Rectal Exam: Yes: WNL Renal/: Yes: WNL ....Post : Yes: Uterus firm, Uterus non-tender, Slight lochia rubra Breast(s): Yes: WNL Musculoskeletal: Yes: WNL Extremities: Yes: WNL Edema: No Integumentary: Yes: WNL Neurological: Yes: WNL, Alert, Oriented ...Motor Strength: WNL Psychiatric: Yes: WNL, Alert, Oriented Labs: CBC, BMP 05/06/19 06:00 Delivery - Delivery Vaginal Delivery: No Problems (no complication), Spontaneous Type of Anesthesia: None Episiotomy/Laceration: None EBL (cc): 250 Delivery, Single - Stages of Labor Date 1st Stage Initiatied: 05/05/19 Time 1st Stage Initiated: 12:00 Date 2nd Stage Initiated: 05/05/19 Time 2nd Stage Initiated: 13:35 Date of Delivery: 05/05/19 Time of Delivery: 13:52 Time Placenta Delivered: 14:00 Placenta: Yes: Spontaneous - Condition of Infant Ict Quality Assurance Engineer/Plate Fitter Present: No Infant Gender: Male Weight: 5 lb 14 oz Position: Left, OA Total Hours ROM (Hrs/Mins): 2 HRS - 1 Minute Total Score: 8 5 Minutes Total Score: 9 - Mobile Feeding Plan Initial Plan: Exclusive throughout hospitalization Discharge Summary Reason For Visit: LABOR Current Active Problems Advanced maternal age (AMA) in (Acute) Gastroparesis (Acute) Hypokalemia (Acute) Insulin dependent diabetes mellitus (Acute) Labor established (Acute) with 34 completed weeks gestation (Acute) Other Procedures: Hospital Course: blood sugar monitoring , insulin adjustment Condition: Good - Instructions Diet, Activity, Other Instructions: Diabetic diet, follow up at [facility] 4 weeks, if fever, heavy vaginal bleeding , severe pain to ER do sliding scale blood sugar monitoring , call Dr Leon for follow up in 1 week, Disposition: HOME - Home Medications Comprehensive Discharge Medication List: Ambulatory Orders Promethazine HCl [Phenergan Plain 6.25 MG/5 ML -] 5 ml PO TID 05/04/18 Insulin Lispro [Admelog] 100 unit SQ ASDIR PRN 06/11/18 Klonopin 1 mg PO BID 01/22/19 Mirtazapine [Remeron -] 30 mg PO DAILY 01/22/19 Promethazine HCl [Phenergan Liquid -] 5 ml PO TID #120 ml 01/24/19 Basaglar Kwikpen U-100 10 units SQ AC 05/05/19 Basaglar Kwikpen U-100 15 units SQ AM 05/05/19 Remeron - 30 tab PO DAILY 05/05/19 Insulin (Levemir) [Levemir Vial] 15 unit SQ DAILY #1 vial 05/07/19
[2019-05-07 09:19] LABS: PLATELET COUNT 331 K/MM3 (134-434)
[2019-05-07] MEDS: PRENATAL VITAMINS W/ FOLIC ACID TABLET (FP) PO SCH (09:50)
[2019-05-07] MEDS: FERROUS SO4 325 MG TABLET (FP) PO SCH (09:51)
[2019-05-07] MEDS: clonazePAM 0.5 MG TABLET PO SCH (09:51)
[2019-05-07] MEDS ORDERED: INSULIN SLIDING SCALE (NOVOLOG) 1 VIAL SQ SCH (11:00)
--- NOTE | 2019-05-07 11:36 | PN ---
Physical Exam: SUBJECTIVE: Patient seen and examined at bedside. No acute events overnight. Denies increased thirst or urination. OBJECTIVE: Vital Signs Period Temp Pulse Resp BP Sys/Powell Pulse Ox Last 24 Hr 97.9 F-98.4 F 84-103 18-18 124-136/86-90 GENERAL: NAD AAOx3 HEAD:AT/NC EYES: EOMI Sclera Clear ENT: MMM. NECK: Trachea midline, full range of motion, supple. LUNGS: CTAB HEART: RRR S1S ABDOMEN: TTP, No guarding or rigidity. EXTREMITIES: 2+ pulses, warm, well-perfused, no edema. NEUROLOGICAL: Cranial nerves II through XII grossly intact. Normal speech. PSYCH: Normal mood, normal affect. SKIN: Warm, dry, normal turgor, no rashes or lesions noted Laboratory Results - last 24 hr 05/06/19 05/06/19 05/07/19 16:31 20:43 06:01 WBC RBC Hgb Hct MCV MCH MCHC RDW Plt Count MPV POC Glucometer 61 114 59 Hemoglobin A1c % 05/07/19 05/07/19 05/07/19 07:10 07:10 08:59 WBC 6.5 RBC 4.16 Hgb 12.1 Hct 35.4 D MCV 85.2 MCH 29.0 MCHC 34.1 RDW 13.8 Plt Count 331 D MPV 9.3 POC Glucometer 151 Hemoglobin A1c % 8.1 H 05/07/19 11:16 WBC RBC Hgb Hct MCV MCH MCHC RDW Plt Count MPV POC Glucometer 94 Hemoglobin A1c % Active Medications Generic Name Dose Route Start Last Admin Trade Name Freq PRN Reason Stop Dose Admin Acetaminophen 650 mg 05/05/19 14:09 Tylenol - PO Q3H PRN FEVER Benzocaine 1 spray 05/05/19 14:09 Americaine 20% [place] - TP PRN PRN Pain - Topical Benzocaine 1 applic 05/05/19 14:09 Americaine Ointment - TP PRN PRN Pain - Topical Bisacodyl 10 mg 05/05/19 14:09 Dulcolax Suppository - RC PRN PRN CONSTIPATION Clonazepam 1 mg 05/05/19 18:30 05/07/19 09:51 Klonopin - PO 1 mg BID DREA Administration Ferrous Sulfate 325 mg 05/05/19 22:00 05/07/19 09:51 Feosol - PO 325 mg BID DREA Administration Parenteral Electrolytes 1,000 mls @ 125 mls/hr 05/05/19 13:10 05/05/19 13:45 Plasma-Lyte 148 - IV 125 mls/hr ASDIR DREA Administration Ibuprofen 600 mg 05/05/19 14:09 Motrin - PO Q4H PRN PAIN LEVEL 1-5 Ibuprofen 600 mg 05/05/19 14:41 Caldolor Injection - IVPB Q6H PRN FEVER Insulin Aspart 1 vial 05/07/19 11:00 Novolog Vial Sliding Scale - SQ TIDAC [facility] Protocol Insulin Detemir 15 units 05/06/19 07:00 05/07/19 06:39 Levemir Vial SQ 15 units AM DREA Administration Methylergonovine Maleate 0.2 mg 05/05/19 14:09 Methergine Injection - IM Q4H PRN EXCESSIVE BLEEDING (L&D) Oxycodone HCl 5 mg 05/05/19 14:38 Roxicodone - PO Q6H PRN PAIN LEVEL 6-10 Multivit/Folic Acid/Iron 1 tab 05/06/19 10:00 05/07/19 09:50 Vitamins (Sjr) - PO 1 tab DAILY DREA Administration Promethazine HCl 25 mg 05/05/19 18:18 05/06/19 11:42 Phenergan Injection - IM 25 mg Q6H PRN Administration NAUSEA AND/OR VOMITING Senna/Docusate Sodium 2 tablet 05/06/19 22:00 Pericolace - PO HS PRN CONSTIPATION Witch Maranda/Glycerin 1 pad 05/05/19 14:09 Tucks Pads - TP PRN PRN Pain - Topical ASSESSMENT/PLAN: Patient is a 33 year old female s/p at 34 weeks with a PMH significant for IDDM, gastroparesis s/p J-tube and removal, and anxiety. Medicine team consulted due to uncontrolled BGMs. #DM I: - A1C--> 8.1% - Continue levemir 15 U in am. Night dose DC'ed as morning BGMs on hypoglycemic side, this am 59. - avoid HS coverage of SSI # H/O HTN during : was supposed to be on labetalol but did not take it. - monitor BP closely . -Recommend outpatient Echo as murmur appreciated on physical exam. # s/p vaginal delivery 05/05. - per SIGNALS ANALYST . # Recommend DVT px if no concern for continued bleeding. #FEN -No fluids -Monitor electrolytes -Diabetic Diet Visit type - Emergency Visit Emergency Visit: No - New Patient This patient is new to me today: No - Critical Care Critical Care patient: No - Discharge Referral Referred to [facility] Med [facility] No
--- NOTE | 2019-05-07 11:59 | PN ---
Teaching Attending Note Name of Resident: Wesley Carr ATTENDING PHYSICIAN STATEMENT I saw and evaluated the patient. I reviewed the resident's note and discussed the case with the resident. I agree with the resident's findings and plan as documented. SUBJECTIVE: No fever or chills. No abd pain, no MCGILL. some spoting. did not have any sx of hypoglycemia this am with sugar of 59 OBJECTIVE: NAD , MMM CV: RRR, 2/6 sm at base with no radiation Lungs: CATB Abd: soft, ND,NT, uterus ball is felt up to umbililcus Ext : no edema or erythema Assessment/Plan: 33 y/o lady with h/o bipolar, DM I, polysubstance abuseand gastroperesis who was admitted fro vaginal delivery and medicine was consulted for management of her DM. 1- DM I: cont long acting insulin 15 units in am . no HS Long acting and cont SSI TID AC f/u with her sheriff's officer as out pt this was d/w Dr. Handy 2- H/O HTn : Nl BP 3- Heart murmur: she was made aware. needs Echo as outpt. she will follow up with PCP ot r/o valvular heart diseae . MODEL MAKING SUPERVISOR was made aware 4- s/p vaginal delivery 05/05.
[2019-05-08 06:11] LABS: RUBELLA IgG ANTIBODY 3.27 index (Immune >0.99)
== END 2019-05-07 15:35 | disposition home or self-care (01) | DRG 560 ==
LOC: JLDR 13:10 → J3W 17:10
PROVIDERS: ADMIT Obstetrics & Gynecology; ATTEND Obstetrics & Gynecology
PROC: 10E0XZZ Delivery of Products of Conception, External Approach (ICD-10-PCS; principal; 2019-05-05)
DX: O24.02 Pre-existing type 1 diabetes mellitus, in childbirth (principal); E87.6 Hypokalemia; E10.43 Type 1 diabetes mellitus with diabetic autonomic (poly)neuropathy; K31.84 Gastroparesis; R11.0 Nausea; O90.81 Anemia of the puerperium; K21.9 Gastro-esophageal reflux disease without esophagitis; R01.1 Cardiac murmur, unspecified; D62 Acute posthemorrhagic anemia; E10.649 Type 1 diabetes mellitus with hypoglycemia without coma; R64 Cachexia; Z3A.34 34 weeks gestation of pregnancy; Z37.0 Single live birth; Z79.4 Long term (current) use of insulin; Z68.26 Body mass index [BMI] 26.0-26.9, adult
CPT/HCPCS: 36415; 59409; 80048; 80053; 80307; 82962; 83036; 83735; 85025; 85027; 85610; 85730; 86593; 86762; 86850; 86900; 86901; 87340; 87389; G0480

== ENCOUNTER 2019-05-30 17:51 | Emergency (ER) | payer OTHER ==
[2019-05-30] MEDS ORDERED: ASPIRIN 81 MG CHEWABLE TABLETS PO ONE (18:03)
--- NOTE | 2019-05-30 18:03 | PDOC ---
Rapid Medical Evaluation Time Seen by Provider: 05/30/19 18:01 Medical Evaluation: Allergies Allergy/AdvReac Type Severity Reaction Status Date / Time shellfish derived Allergy Verified 05/30/19 18:01 famotidine [From Pepcid] AdvReac Verified 05/30/19 18:01 metoclopramide [From Reglan] AdvReac Verified 05/30/19 18:01 ondansetron AdvReac Verified 05/30/19 18:01 05/30/19 18:02 HPI: syncopy today, 3 weeks post pardum PE:no gross deficits ORDERS: cardiac work up Discharge Disposition - Diagnosis Syncope - Referrals - Patient Instructions - Post Discharge Activity
[2019-05-30 18:06] VITALS: TEMP 98.5; BMI 19.7
[2019-05-30] MEDS ORDERED: SODIUM CHLORIDE 0.9% 500 ML INFUS.BAG IV ONE (19:29)
--- NOTE | 2019-05-30 19:30 | PDOC ---
History of Present Illness - General Chief Complaint: Nausea/Vomiting Stated Complaint: SYNCOPE/VOMITING Time Seen by Provider: 05/30/19 18:01 - History of Present Illness Initial Comments: Princess Valentin is a 34yo woman with a PMH of DM1, gastroparesis, 3wks who presents with 3 days of general malaise, weakness and now 2 episodes of syncope today. She says that she has been feeling "off" for a few days, saying that she has had no energy at all. She states that her legs feel "like jello" and she has been having difficulty climbing up the stairs. She says that she has been eating well, has no urinary symptoms, no cough, no chest pain, no fevers or other specific symptoms. She does endorse feeling lightheaded if she stands up quickly after squatting down to the ground. Today, she had two episodes of syncope, both witnessed by her children. The first episode, she was sitting on her bed, and her daughter told her that she suddenly slumped over and became unresponsive for a few minutes. The other episode, she was walking down the hallway with her teenage son, who was able to catch her and prevent her from falling. She had no injury during either episode, and both times she regained consciousness without intervention. Other than the past few days, she has been doing well . She says that she has lost significant weight (~40lb) since delivery despite eating well. She has reduced her insulin dose on her own due to her sugars running low; she states that generally they are well controlled w/ recent a1c at 7.5. Past History - Past Medical History Allergies/Adverse Reactions: Allergies Allergy/AdvReac Type Severity Reaction Status Date / Time shellfish derived Allergy Verified 05/30/19 18:01 famotidine [From Pepcid] AdvReac Verified 05/30/19 18:01 metoclopramide [From Reglan] AdvReac Verified 05/30/19 18:01 ondansetron AdvReac Verified 05/30/19 18:01 Home Medications: Ambulatory Orders Insulin Lispro [Admelog] 100 unit SQ ASDIR PRN 06/11/18 Klonopin 1 mg PO BID 01/22/19 Promethazine HCl [Phenergan Liquid -] 5 ml PO TID #120 ml 01/24/19 Basaglar Kwikpen U-100 10 units SQ HS 05/05/19 Basaglar Kwikpen U-100 15 units SQ AM 05/05/19 Labetalol HCl [Normodyne -] 200 mg PO ASDIR PRN 05/30/19 Omeprazole 40 mg PO ASDIR 05/30/19 Potassium Chloride [K-Dur -] 40 meq PO DAILY #4 tablet.er 05/31/19 Asthma: No Cancer: No Cardiac Disorders: No CVA: No COPD: No DVT: No Diabetes: Yes GI Disorders: Yes (gastropresis) HTN: No Hypercholesterolemia: Yes Seizures: No Thyroid Disease: No - Surgical History Abdominal Surgery: Yes (HX OF G.TUBE) Cholecystectomy: Yes - Immunization History Immunization Up to Date: Yes - Suicide/Smoking/Psychosocial Hx Smoking History: Smoker current status UNK Have you smoked in the past 12 months: No Number of Cigarettes Smoked Daily: 2 'Breaking Loose' booklet given: 07/10/18 Hx Alcohol Use: No Drug/Substance Use Hx: Yes Substance Use Type: Marijuana Hx Substance Use Treatment: No Review of Systems - Review of Systems Comments:: General: No fevers, no chills, no weight or appetite change, + malaise, + general weakness HEENT: No changes in vision, no changes in hearing, no congestion, no sore throat CV: No chest pain, no palpitations, no LE edema Pulm: No SOB, no cough, no wheezing GI: +chronic n/v (gastroparesis), no change in bowel habits, no melena : No frequency, no urgency, no dysuria Musc: No back pain, no joint swelling, no recent injury Skin: No rash, no lesions, no erythema Endo: No excessive thirst, no heat/cold intolerance Heme: No unusual bruising or bleeding, no swollen glands Neuro: No syncope, no numbness/tingling, no focal weakness Vasc: No claudication Psych: No recent change in mood, no SI or HI *Physical Exam - Vital Signs Last Vital Signs Temp Pulse Resp BP Pulse Ox 98.5 F 72 16 102/64 99 05/30/19 18:05 05/30/19 18:05 05/30/19 18:05 05/30/19 18:05 05/30/19 18:05 - Physical Exam Comments: General: Appears to be feeling unwell but in no acute distress HEENT: PERRL, EOMI, MMM, voice normal, normal neck ROM Cards: RRR, no murmur appreciated Pulm: Comfortable on room air, clear to auscultation bilaterally Abd: Soft, nontender, nondistended : No CVA tenderness Ext: Atraumatic. No LE edema. ROM intact Vasc: Extremities WWP Skin: Normal color, no rashes or lesions Neuro: A&Ox3, CN grossly intact, normal speech, motor/sensory grossly intact and symmetric Psych: Mood appropriate to situation ED Treatment Course - LABORATORY CBC & Chemistry Diagram: 05/30/19 20:00 05/30/19 20:00 Medical Decision Making - Medical Decision Making 05/30/19 19:29 Princess Valentin is a 34yo woman with a PMH of DM1, gastroparesis, 3wks who presents with 3 days of general malaise, weakness and now 2 episodes of syncope today. She denies any injury, both episodes were witnessed and she woke without intervention. She does not have any focal symptoms but says she has been feeling "off". - Appears to be feeling unwell on exam but no concerning or localized findings - Syncope workup including CBC, CMP, Trop, EKG, coags - May need PE workup depending on results - Possible orthostatics, slightly hypotensive, maybe due to mild dehydration. 1L IVF 05/30/19 21:28 - CBC unremarkable, coags normal. Chemistry pending - EKG completed, reviewed. Sinus tach, HR 116, normal axis, normal intervals. Sign of atrial enlargement, nonspecific t-wave and ST changes. - CTA chest ordered to evaluate for PE given abnormal EKG findings 05/30/19 21:58 - Potassium 2.6, will replete - Updated regarding decision to obtain CTA chest. Pt reports that she spoke with her sister, who stated that their mother had a DVT/PE. Pt was aware of EKG abnormalities, has an echo scheduled for Tuesday05/30/19 23:48 - UA pending - Discussed with patient that it is recommended she be admitted to the hospital for syncope workup, abnormal EKG, and electrolyte abnormalites along with hypoglyemica. She declines admission. She understands that her potassium is low , that her insulin likely needs to be adjusted. She has an appointment for an echo schedule Tuesday and appointments with her PMD and skin pass operator early next week. She understands that her potassium needs to be rechecked, and she will call her PMD tomorrow for follow up labs. - Will AMA when UA is completed. 05/31/19 00:16 - UA negative - Discussed home care, return precautions and follow up at length - Will sign AMA form Discussed with Dr Pierre. Maishanathan Andersen PGY2 *DC/Admit/Observation/Transfer Diagnosis at time of Disposition: Syncope Qualifiers: Syncope type: unspecified Qualified Code(s): R55 - Syncope and collapse - Discharge Dispostion Disposition: AGAINST MEDICAL ADVICE Condition at time of disposition: Stable Decision to Admit order: No - Prescriptions Prescriptions: Potassium Chloride [K-Dur -] 40 meq PO DAILY #4 tablet.er - Referrals Referrals: Maira Oswald MD [Primary Care Provider] - - Patient Instructions Printed Discharge Instructions: DI for Syncope in Adults (Fainting) Additional Instructions: Discharge Instructions: You were seen in the ED after fainting at home. Your blood tests showed several abnormalities including low potassium and hypoglycemia (low blood sugar). You also had abnormal findings on your EKG. Your CT chest to evaluate for blood clots was negative (normal). It was recommended that you stay in the hospital, but you declined. Becasues of this, it is very important that you have appropriate follow up. - You have been prescribed additional potassium pills to take for 2 days at home. You need to follow up with your regular doctor within the next 48-72 hours to recheck your potassium level. - Your blood sugar was low. Continue to check your sugars at home regularly; your insulin may need to be adjusted. Call your skin pass operator tomorrow to let them know about the low sugars. This may also be the cause of your recent weight loss. - It is unclear why you fainted at this point. Please return to the ED if you have any additional fainting episodes. You should also seek immediate care if you have any worsening of symptoms, you have any falls, you have persistent vomiting that prevents you from staying hydrated, or you have any other medical emergency. - Post Discharge Activity
[2019-05-30 20:30] LABS: BASO % 0.8 % (0-2.0); EOS % 0.9 % (0-4.5); HEMOGLOBIN 15.6 GM/dL (10.7-15.3); LYMPH % 41.7 % (8-40); MCH 28.6 pg (25.7-33.7); MEAN CELL VOLUME 84.1 fl (80-96); MEAN PLT VOLUME 9.1 fl (7.5-11.1); MONO % 9.1 % (3.8-10.2); NEUT % 47.5 % (42.8-82.8); PLATELET COUNT 418 K/MM3 (134-434); RBC 5.47 M/mm3 (3.60-5.2); RDW 13.9 % (11.6-15.6); WHITE BLOOD COUNT 5.6 K/mm3 (4.0-10.0)
[2019-05-30 20:44] LABS: PROTHROMBIN TIME (PATIENT) 11.8 SEC (9.7-13.0)
[2019-05-30 21:33] LABS: ALBUMIN 4.3 g/dl (3.4-5.0); ALK PHOS 143 U/L (45-117); ANION GAP 8 MMOL/L (8-16); BILIRUBIN,TOTAL 0.6 mg/dL (0.2-1); BLOOD UREA NITROGEN 20.2 mg/dL (7-18); CALCIUM 9.7 mg/dL (8.5-10.1); CHLORIDE 94 mmol/L (98-107); CO2 33 mmol/L (21-32); GLUCOSE,RANDOM 57 mg/dL (74-106); MAGNESIUM 2.3 mg/dL (1.8-2.4); N-TERMINAL BNP 18.8 pg/ml (5-125); SGOT/AST 16 U/L (15-37); SGPT/ALT 27 U/L (13-61); SODIUM 135 mmol/L (136-145); TOT PROT 8.3 g/dl (6.4-8.2)
[2019-05-30] MEDS ORDERED: POTASSIUM CHLORIDE ORAL LIQUID 20 MEQ/15 ML PO ONE (21:58)
[2019-05-30 22:03] LABS: POTASSIUM 2.6 mmol/L (3.5-5.1)
[2019-05-30 22:41] LABS: URIC ACID 4.8 mg/dL (2.6-7.2)
--- NOTE | 2019-05-30 22:43 | PDOC ---
Attending Attestation - Resident Resident Name: Maisha Andersen - ED Attending Attestation I have performed the following: I have examined & evaluated the patient, The case was reviewed & discussed with the resident, I agree w/resident's findings & plan - HPI HPI: 05/30/19 22:40 34-year-old female with 2 syncopal episodes, patient is several weeks . She denies chest pain or associated trauma. She does complain of severe weakness. - Physicial Exam PE: 05/30/19 22:41 agree with resident exam - Medical Decision Making 05/30/19 22:41 34-year-old female, with syncope 2 and weakness Labs reveal significant hypokalemia as well as hypoglycemia EKG shows a sinus tachycardia CTA of the chest was performed to rule out PE which was within normal limits Plan for glucose and potassium replacement and admission
[2019-05-30] MEDS ORDERED: POTASSIUM CHLORIDE TABS 20 MEQ TABLET.ER (FP) PO ONE (22:49)
[2019-05-30 23:52] VITALS: BP 124/94; PULSE 100
[2019-05-31 00:11] LABS: URINE APPEARANCE CLEAR; URINE COLOR YELLOW
[2019-05-31 00:12] LABS: PH,URINE 6.5 (5.0-8.0); URINE BILIRUBIN NEGATIVE (NEGATIVE); URINE KETONE NEGATIVE (NEGATIVE); URINE LEUK ESTERASE NEGATIVE (NEGATIVE); URINE NITRITE NEGATIVE (NEGATIVE); URINE PROTEIN TRACE (NEGATIVE)
--- NOTE | 2019-05-31 17:12 | EKG ---
Test Reason : Blood Pressure : / mmHG Vent. Rate : 116 BPM Atrial Rate : 116 BPM P-R Int : 148 ms QRS Dur : 070 ms QT Int : 338 ms P-R-T Axes : 084 081 064 degrees QTc Int : 469 ms SINUS TACHYCARDIA BIATRIAL ENLARGEMENT SEPTAL INFARCT , AGE UNDETERMINED ABNORMAL ECG WHEN COMPARED WITH ECG OF 13-DEC-2018 22:17, NO SIGNIFICANT CHANGE WAS FOUND Confirmed by KATIE VALDIVIA, MALIK ([id number]) on 05/31/2019 5:11:53 PM Referred By: Confirmed By:MALIK WILSON MD
== END 2019-05-31 00:25 | disposition left against medical advice (07) ==
LOC: JER 17:51
PROC: 3E0337Z Introduction of Electrolytic and Water Balance Substance into Peripheral Vein, Percutaneous Approach (ICD-10-PCS; principal; 2019-05-30)
DX: R55 Syncope and collapse (principal)
CPT/HCPCS: 36415; 71046-TC-FY; 71275-TC; 80053; 81003; 82550; 83735; 83880; 84484; 84550; 84703; 85025; 85610; 93005; 93010; 99283-25

== ENCOUNTER 2019-07-27 19:53 | Inpatient (IN) | payer OTHER | END 2019-07-31 14:35 | disposition left against medical advice (07) | LOC: JICU 07-28 01:27 → JER 19:53 → JERBED 23:33 ==

== ENCOUNTER 2019-09-23 13:36 | Inpatient (IN) | payer OTHER ==
[2019-09-23] MEDS ORDERED: SODIUM CHLORIDE 1,000 ML IV STA ×4 (13:53→16:34)
[2019-09-23 14:11] LABS: BASO % 0.5 % (0-2.0); EOS % 0.1 % (0-4.5); HEMATOCRIT 44.6 % (32.4-45.2); HEMOGLOBIN 15.2 GM/dL (10.7-15.3); LYMPH % 10.2 % (8-40); MCHC 34.1 g/dl (32.0-36.0); MEAN CELL VOLUME 85.2 fl (80-96); MEAN PLT VOLUME 10.1 fl (7.5-11.1); MONO % 5.8 % (3.8-10.2); NEUT % 83.4 % (42.8-82.8); PLATELET COUNT 322 K/MM3 (134-434); RBC 5.23 M/mm3 (3.60-5.2); RDW 13.7 % (11.6-15.6)
[2019-09-23] MEDS ORDERED: LACTATED RINGERS SOLUTION 1,000 ML/1,000 ML INFUS.BAG IV SCH (14:15)
[2019-09-23 14:17] LABS: VENOUS PH 7.42 (7.31-7.41); VENOUS PO2 97.9 mmHg (28-48)
[2019-09-23 14:21] LABS: INR 0.92 (0.83-1.09); PROTHROMBIN TIME (PATIENT) 10.9 SEC (9.7-13.0)
[2019-09-23 14:24] LABS: ACTIVATED PTT 26.8 SECONDS (25.2-36.5)
--- NOTE | 2019-09-23 14:35 | PDOC ---
Documentation entered by Honorio Marroquin SCRIBE, acting as scribe for Valente Reyes MD. Valente Reyes MD: This documentation has been prepared by the Lopez maher Daniel, SCRIBE, under my direction and personally reviewed by me in its entirety. I confirm that the documentation accurately reflects all work, treatment, procedures, and medical decision making performed by me. Attending Attestation - Resident Resident Name: AndrewAntwan - ED Attending Attestation I have performed the following: I have examined & evaluated the patient, The case was reviewed & discussed with the resident, I agree w/resident's findings & plan, Exceptions are as noted - HPI HPI: 09/23/19 14:21 The patient is a 34 year old female with a past medical history of poorly controlled diabetes, gastroparesis, and HTN here today for evaluation of weakness, nausea, and vomiting. The patient reports that she has had one night of generalized weakness, nausea, and non bloody non bilious vomiting. Patient denies headache, lightheadedness. Denies fever, chills. Denies chest pain, shortness of breath. Denies diarrhea, abdominal pain. Allergies: shellfish derived, famotidine, metoclopramide, ondansetron PCP: Maira Willis - Physicial Exam PE: 09/23/19 14:14 GENERAL: The patient is somnolent, but arousable to verbal stimulus HEAD: Normocephalic, atraumatic. EYES: extraocular movements intact, sclera anicteric, conjunctiva clear. ENT: Normal voice, dry mucous membranes. NECK: Normal range of motion, supple LUNGS: Breath sounds equal, clear to auscultation bilaterally. No wheezes, no rhonchi, no rales. HEART: slightly tachycadic, no mrg ABDOMEN: Soft, nontender, No guarding, no rebound. No CVA tenderness EXTREMITIES: Normal range of motion, no edema. NEUROLOGICAL: No facial assymetry, Normal speech, PSYCH: Normal mood, normal affect. SKIN: Warm, Dry, normal turgor, - Medical Decision Making 09/23/19 14:17 suspect [address]ka will place line, fluid awiting K prior to insulin gtt 09/23/19 16:17 The patient's blood work was reviewed there is noted to be significant hyperglycemia as well as elevated lactic acid However the patient does not appear to be in DKA as she is not acidotic with normal bicarb. She does have significant elevated serum acetones. Patient was given insulin, will repeat the patient's blood work will repeat blood work, nticipate admisison to ICU
[2019-09-23 14:36] LABS: URINE APPEARANCE CLEAR; URINE BILIRUBIN NEGATIVE (NEGATIVE); URINE COLOR YELLOW; URINE GLUCOSE (UA) 3+ (NEGATIVE); URINE KETONE 1+ (NEGATIVE); URINE LEUK ESTERASE NEGATIVE (NEGATIVE); URINE NITRITE NEGATIVE (NEGATIVE); URINE PROTEIN NEGATIVE (NEGATIVE); URINE UROBILINOGEN 0.2 mg/dL (0.2-1.0)
[2019-09-23 14:45] LABS: ALBUMIN 4.9 g/dl (3.4-5.0); BILIRUBIN,TOTAL 1.4 mg/dL (0.2-1); BLOOD UREA NITROGEN 15.9 mg/dL (7-18); CALCIUM 10.1 mg/dL (8.5-10.1); CREATININE 1.4 mg/dL (0.55-1.3); MAGNESIUM 2.7 mg/dL (1.8-2.4); PHOSPHOROUS 4.5 mg/dL (2.5-4.9); POTASSIUM 3.9 mmol/L (3.5-5.1); TOT PROT 9.1 g/dl (6.4-8.2)
[2019-09-23] MEDS ORDERED: INSULIN REGULAR HUMAN 100 UNITS/ML *VIAL IVPUSH ONE ×2 (15:02)
--- NOTE | 2019-09-23 15:29 | PDOC ---
History of Present Illness - General History Source: Patient, Family Exam Limitations: No Limitations - History of Present Illness Initial Comments: 09/23/19 15:22 Princess Valentin is a 34F with PMH poorly controlled T1DM, gastroparesis, HTN, presenting with a few days of weakness, nausea, vomiting consistent with DKA. Per patient and 16-year-old daughter Yanelis at bedside, patient has been having a large amount of nausea and vomiting with feeling of generalized weakness. Patient arrived lethargic but arousable with BGM >600, proceded to get DKA labs , get patient on monitor, and start 1L NS before initial assessment. Further questioning limited by patient mental status. Per chart review, patient has known history of DKA and admissions to [facility] for this issue. Discussed plan of care with daughter, has aunt who can pick her up from hospital if needed. <Antwan Morales - Last Filed: 09/23/19 18:26> <Valente Reyes - Last Filed: 09/24/19 16:09> - General Chief Complaint: Weakness Stated Complaint: WEAKNESS Time Seen by Provider: 09/23/19 13:43 Past History - Past Medical History Asthma: No Cancer: No Cardiac Disorders: No CVA: No COPD: No DVT: No Diabetes: Yes GI Disorders: Yes (gastropresis) HTN: No Hypercholesterolemia: Yes Seizures: No Thyroid Disease: No - Surgical History Abdominal Surgery: Yes (HX OF G.TUBE) Cholecystectomy: Yes - Immunization History Immunization Up to Date: Yes - Psycho Social/Smoking Cessation Hx Smoking History: Never smoked Have you smoked in the past 12 months: No Number of Cigarettes Smoked Daily: 2 Information on smoking cessation initiated: No 'Breaking Loose' booklet given: 07/10/18 Hx Alcohol Use: No Drug/Substance Use Hx: No Substance Use Type: Marijuana Hx Substance Use Treatment: No <Antwan Morales - Last Filed: 09/23/19 18:26> <Valente Reyes - Last Filed: 09/24/19 16:09> - Past Medical History Allergies/Adverse Reactions: Allergies Allergy/AdvReac Type Severity Reaction Status Date / Time shellfish derived Allergy Verified 07/27/19 20:24 famotidine [From Pepcid] AdvReac Verified 07/27/19 20:24 metoclopramide [From Reglan] AdvReac Verified 07/27/19 20:24 ondansetron AdvReac Verified 07/27/19 20:24 Home Medications: Ambulatory Orders Insulin Lispro [Admelog] 14 unit SQ ASDIR PRN 06/11/18 Klonopin 1 mg PO BID 01/22/19 Basaglar Kwikpen U-100 10 units SQ HS 05/05/19 Basaglar Kwikpen U-100 15 units SQ AM 05/05/19 Labetalol HCl [Normodyne -] 200 mg PO ASDIR PRN 05/30/19 Omeprazole 40 mg PO ASDIR 05/30/19 Pantoprazole Sodium [Protonix -] 20 mg PO DAILY #30 tablet.ec 07/31/19 Potassium Chloride [K-Dur -] 20 meq PO DAILY 09/24/19 Promethazine HCl [Phenergan Liquid -] 10 ml PO Q6H 09/24/19 Review of Systems - Review of Systems Constitutional: Yes: Loss of Appetite. No: Chills, Fever HEENTM: No: Symptoms Reported Respiratory: No: Symptoms reported Cardiac (ROS): No: Symptoms Reported ABD/GI: Yes: Nausea, Poor Appetite, Poor Fluid Intake, Vomiting. No: Constipated, Diarrhea : No: Symptoms Reported Musculoskeletal: No: Symptoms Reported Integumentary: No: Symptoms Reported Neurological: No: Symptoms reported Endocrine: No: Symptoms Reported All Other Systems: Reviewed and Negative <Antwan Morales - Last Filed: 09/23/19 18:26> *Physical Exam - Vital Signs Last Vital Signs Temp Pulse Resp BP Pulse Ox 97.5 F L 98 H 22 H 155/100 100 09/23/19 14:31 09/23/19 15:12 09/23/19 15:12 09/23/19 15:12 09/23/19 15:13 - Physical Exam General Appearance: Yes: Appropriately Dressed, Thin. No: Apparent Distress HEENT: positive: EOMI, SERENE, Normal Voice, Pharynx Normal, Hearing Grossly Normal. negative: Scleral Icterus (R), Scleral Icterus (L) Neck: positive: Supple. negative: Tender, Lymphadenopathy (R), Lymphadenopathy (L) Respiratory/Chest: positive: Lungs Clear, Normal Breath Sounds. negative: Chest Tender, Respiratory Distress, Accessory Muscle Use, Crackles, Rales, Rhonchi, Stridor, Wheezing Cardiovascular: positive: Regular Rhythm, Regular Rate Gastrointestinal/Abdominal: positive: Normal Bowel Sounds, Flat, Soft. negative : Tender, Protuberent Musculoskeletal: positive: Normal Inspection. negative: CVA Tenderness Extremity: positive: Normal Capillary Refill, Normal Inspection, Normal Range of Motion. negative: Tender Integumentary: positive: Normal Color, Dry, Warm Neurologic: negative: Fully Oriented (lethargic, arousable to voice, speaking in short sentences), Facial Droop <Antwan Morales - Last Filed: 09/23/19 18:26> - Vital Signs Last Vital Signs Temp Pulse Resp BP Pulse Ox 98.0 F 87 18 136/98 100 09/24/19 11:00 09/24/19 16:02 09/24/19 16:02 09/24/19 16:02 09/23/19 21:00 <Valente Reyes - Last Filed: 09/24/19 16:09> ED Treatment Course - LABORATORY CBC & Chemistry Diagram: 09/23/19 13:55 09/23/19 16:33 - ADDITIONAL ORDERS Additional order review: Laboratory Results 09/23/19 09/23/19 09/23/19 14:25 14:15 13:55 PT with INR INR PTT (Actin FS) VBG pH 7.42 H POC VBG pCO2 41 POC VBG pO2 97.9 H VBG HCO3 25.8 VBG O2 Sat (Merrill) 97.5 H VBG Base Excess 1.6 Sodium Potassium Chloride Carbon Dioxide Anion Gap BUN Creatinine Est GFR (CKD-EPI)AfAm Est GFR (CKD-EPI)NonAf Random Glucose Lactic Acid 6.5 H* Calcium Phosphorus Magnesium Total Bilirubin AST ALT Alkaline Phosphatase Creatine Kinase Troponin I Total Protein Albumin Beta-Hydroxybutyrate Urine Color Yellow Urine Appearance Clear Urine pH 5.0 Ur Specific Ponce 1.036 H Urine Protein Negative Urine Glucose (UA) 3+ H Urine Ketones 1+ H Urine Blood Negative Urine Nitrite Negative Urine Bilirubin Negative Urine Urobilinogen 0.2 Ur Leukocyte Esterase Negative 09/23/19 09/23/19 09/23/19 13:55 13:55 13:55 PT with INR 10.90 INR 0.92 PTT (Actin FS) 26.8 VBG pH POC VBG pCO2 POC VBG pO2 VBG HCO3 VBG O2 Sat (Merrill) VBG Base Excess Sodium 124 L Potassium 3.9 Chloride 83 L Carbon Dioxide 26 Anion Gap 15 BUN 15.9 Creatinine 1.4 H Est GFR (CKD-EPI)AfAm 55.88 Est GFR (CKD-EPI)NonAf 48.22 Random Glucose 722 H* Lactic Acid Calcium 10.1 Phosphorus 4.5 Magnesium 2.7 H Total Bilirubin 1.4 H AST 27 ALT 40 Alkaline Phosphatase 169 H Creatine Kinase 81 Troponin I < 0.02 Total Protein 9.1 H Albumin 4.9 Beta-Hydroxybutyrate 14.1 H Urine Color Urine Appearance Urine pH Ur Specific Ponce Urine Protein Urine Glucose (UA) Urine Ketones Urine Blood Urine Nitrite Urine Bilirubin Urine Urobilinogen Ur Leukocyte Esterase 09/23/19 13:55 RBC 5.23 H MCV 85.2 MCHC 34.1 RDW 13.7 MPV 10.1 D Neutrophils % 83.4 H D Lymphocytes % 10.2 D Monocytes % 5.8 Eosinophils % 0.1 D Basophils % 0.5 - Medications Given in the ED: ED Medications Discontinued Medications Generic Name Dose Route Start Last Admin Trade Name Freq PRN Reason Stop Dose Admin Sodium Chloride 1,000 mls @ 1,000 mls/hr 09/23/19 13:53 09/23/19 14:37 Normal Saline - IV 09/23/19 14:52 1,000 mls/hr .Q1H STA Administration Insulin Human Regular 10 units 09/23/19 15:02 09/23/19 15:11 Novolin R Vial *For Ivpush Or Iv Drip Only* IVPUSH 09/23/19 15:03 Not Given ONCE ONE Insulin Human Regular 5 units 09/23/19 15:02 09/23/19 15:10 Novolin R Vial *For Ivpush Or Iv Drip Only* IVPUSH 09/23/19 15:03 5 units ONCE ONE Administration <Antwan Morales - Last Filed: 09/23/19 18:26> - LABORATORY CBC & Chemistry Diagram: 09/24/19 05:00 09/24/19 13:08 - ADDITIONAL ORDERS Additional order review: Laboratory Results 09/23/19 16:33 Beta-Hydroxybutyrate 2.2 09/23/19 13:55 Blood Culture - Preliminary Blood - Peripheral Venous NO GROWTH OBTAINED AFTER 24 HOURS, INCUBATION TO CONTINUE FOR 4 DAYS. 09/23/19 13:55 Blood Culture - Preliminary Blood - Peripheral Venous NO GROWTH OBTAINED AFTER 24 HOURS, INCUBATION TO CONTINUE FOR 4 DAYS. 09/23/19 14:25 Urine Culture - Final Urine - Urine Clean Catch NO GROWTH OBTAINED 09/23/19 09/23/19 09/23/19 16:52 15:21 13:55 RBC 5.23 H MCV 85.2 MCHC 34.1 RDW 13.7 MPV 10.1 D Neutrophils % 83.4 H D Lymphocytes % 10.2 D Monocytes % 5.8 Eosinophils % 0.1 D Basophils % 0.5 POC Glucometer 441 589 09/23/19 13:39 RBC MCV MCHC RDW MPV Neutrophils % Lymphocytes % Monocytes % Eosinophils % Basophils % POC Glucometer > 600 - Medications Given in the ED: ED Medications Discontinued Medications Generic Name Dose Route Start Last Admin Trade Name Freq PRN Reason Stop Dose Admin Amlodipine Besylate 5 mg 09/23/19 18:02 09/23/19 18:48 Norvasc - PO 09/23/19 18:03 Not Given ONCE ONE Amlodipine Besylate 5 mg 09/24/19 09:00 09/24/19 09:09 Norvasc - PO 09/24/19 09:01 5 mg ONCE ONE Administration Sodium Chloride 1,000 mls @ 1,000 mls/hr 09/23/19 13:53 09/23/19 14:37 Normal Saline - IV 09/23/19 14:52 1,000 mls/hr .Q1H STA Administration Lactated Ringer's 1,000 ml in 1,000 mls @ 100 mls/hr 09/23/19 14:15 09/23/19 14:37 Lactated Ringers Solution IV 100 mls/hr ASDIR DREA Administration Sodium Chloride 1,000 mls @ 1,000 mls/hr 09/23/19 16:33 09/23/19 16:48 Normal Saline - IV 09/23/19 17:32 1,000 mls/hr ASDIR STA Administration Sodium Chloride 1,000 mls @ 1,000 mls/hr 09/23/19 16:34 09/23/19 16:54 Normal Saline - IV 09/23/19 17:33 Not Given ASDIR STA Sodium Chloride 1,000 mls @ 1,000 mls/hr 09/23/19 16:34 09/23/19 16:54 Normal Saline - IV 09/23/19 17:33 Not Given ASDIR STA Sodium Chloride 1,000 mls @ 150 mls/hr 09/23/19 16:45 09/23/19 20:53 Normal Saline - IV 150 mls/hr ASDIR DREA Administration Potassium Chloride 10 meq in 100 mls @ 100 mls/hr 09/23/19 17:00 09/24/19 01: 35 Potassium Chloride 10 Meq Premix Ivpb - IVPB 09/23/19 19:59 100 mls/hr Q60M DREA Administration Lactated Ringer's 1,000 ml in 1,000 mls @ 1,000 mls/hr 09/23/19 22:41 23:21 Lactated Ringers Solution IV 09/23/19 23:40 1,000 mls/hr ONCE STA Administration Insulin Human Regular 100 100 mls @ 5.21 mls/hr 09/23/19 23:00 09/24/19 02:40 units/ Sodium Chloride IVPB 0.01 units/kg/hr TITR DREA 1 mls/hr Titration Protocol 0.1 UNITS/KG/HR Dextrose/Sodium Chloride 1,000 mls @ 42 mls/hr 09/23/19 23:00 09/24/19 02:40 D5-1/2ns - IV 42 mls/hr ASDIR DREA Administration Lactated Ringer's 1,000 ml in 1,000 mls @ 1,000 mls/hr 09/23/19 23:31 00:31 Lactated Ringers Solution IV 09/24/19 00:30 1,000 mls/hr ONCE STA Administration Potassium Chloride 10 meq in 100 mls @ 100 mls/hr 09/24/19 06:00 09/24/19 08: 10 Potassium Chloride 10 Meq Premix Ivpb - IVPB 09/24/19 07:59 100 mls/hr Q60M DREA Administration Insulin Aspart 1 vial 09/23/19 22:00 09/23/19 23:08 Novolog Vial Sliding Scale - SQ Not Given Q4HPO DREA Protocol Insulin Detemir 10 units 09/23/19 22:00 09/23/19 23:08 Levemir Vial SQ Not Given HS DREA Insulin Detemir 5 units 09/24/19 14:20 09/24/19 14:29 Levemir Vial SQ 09/24/19 14:21 5 units ONCE ONE Administration Insulin Human Regular 10 units 09/23/19 15:02 09/23/19 15:11 Novolin R Vial *For Ivpush Or Iv Drip Only* IVPUSH 09/23/19 15:03 Not Given ONCE ONE Insulin Human Regular 5 units 09/23/19 15:02 09/23/19 15:10 Novolin R Vial *For Ivpush Or Iv Drip Only* IVPUSH 09/23/19 15:03 5 units ONCE ONE Administration Labetalol HCl 100 mg 09/24/19 13:56 09/24/19 14:10 Normodyne - PO 09/24/19 13:57 100 mg ONCE ONE Administration Magnesium Sulfate 2 gm 09/24/19 09:15 09/24/19 09:58 Magnesium Sulfate IVPB 09/24/19 09:16 2 gm ONCE ONE Administration Promethazine HCl 12.5 mg 09/23/19 16:11 09/23/19 16:27 Phenergan Injection - IVPUSH 09/23/19 16:12 12.5 mg ONCE ONE Administration Promethazine HCl 12.5 mg 09/24/19 08:14 09/24/19 09:47 Phenergan Injection - IVPB 09/24/19 08:15 Not Given ONCE ONE Sodium Chloride 500 ml 09/23/19 16:03 09/23/19 16:07 Normal Saline - IV 09/23/19 16:04 500 ml ONCE ONE Administration <Valente Reyes - Last Filed: 09/24/19 16:09> Medical Decision Making - Medical Decision Making 09/23/19 14:30 Princess Valentin is a 34F with PMH poorly controlled T1DM, gastroparesis, HTN, presenting with a few days of weakness, nausea, vomiting consistent with DKA. Patient presentation if most concerning for DKA vs. HHS vs. infectious process such as UTI/pyelo/PNA vs. cardiovascular issue such as arrhythmia vs. electrolyte abnormality. Will evaluate broadly via DKA order set with lactic acid, Mag/Phos. Giving 1L NS bolus to start, will give insulin bolus when CHEM back to return. Has 20G in L AC and US-guided 20G in R AC. 09/23/19 15:22 Labs notable for: Na 126, 134 corrected for Glu 720 K 3.9 Cl 83 AGAP 15, inconsistent with DKA Glu 720 Lactic Acid 6.5, unclear etiology Cr. 1.4 up from 0.6 prior Betahydroxybutyrate 14 pH 7.42 with pCO2 41, inconsistent with DKA UA shows 3+ glucose, 1+ ketones, no evidence of UTI WBC 9.0, no evidence of infection ECH shows sinus tachycardia with non-specific T wave abnormality HR 106 QRS 78 QTc 502 Repeat BGM after 1L NS 589 Giving 1L LR with 20mEq K repletion and 6U (~1U/kg) regular insulin. Patient more responsive at this time, on bed parra. Labs show no AGAP or acidosis, but has elevated betahydroxybutyrate, glucose. Lactate elevated for an unspecified reason. Adding on a urine toxicology screen to evaluate other causes of lactic acidosis. Will re-evaluate labs after 2nd liter crystalloids in. R AC line infiltrated. 09/23/19 16:15 Patient nauseated, but has documented allergies to Zofran and Reglan. Will give Phenergan per patient preference. L AC line highly positional, frequently fails. 09/23/19 17:02 Replaced US-guided 20G into L AC, good flow, rechecked CMP/lactate/VBG/BHB 3rd liter 1L LR bolus began running. 09/23/19 17:05 Admitting team notified and present in ED, Drs. Mcginnis and Kameron at bedside. Have ordered more IVF and will medicate pending next CMP, unclear if truly in DKA. Admitting team called ICU for consult, called respiratory for ABG, getting CT head and CXR. 09/23/19 18:15 ABG shows no evidence of acidosis, pH 7.43. CXR prelim read grossly normal, no evidence of underlying PNA as cause of lactate elevation. 09/23/19 18:[address] admission with Dr. Ruiz, patient good for ICU admission per ICU team who is waiting for the patient. Changing admission order to ICU, will get patient upstairs now. <Antwan Morales - Last Filed: 09/23/19 18:26> - Critical Care Time Total Critical Care Time (minutes): 45 Critical Care Statement: The care of this patient involved high complexity decision making to prevent further life threatening deterioration of the patient 's condition and/or to evaluate & treat vital organ system(s) failure or risk of failure. <Valente Reyes - Last Filed: 09/24/19 16:09> Discharge - Discharge Information Problems reviewed: Yes - Admission Yes <Antwan Morales - Last Filed: 09/23/19 18:26> <Valente Reyes - Last Filed: 09/24/19 16:09> - Discharge Information Clinical Impression/Diagnosis: Weakness, LAYNE (acute kidney injury), Lactic acidosis Nausea and vomiting Qualifiers: Vomiting type: unspecified Vomiting Intractability: non-intractable Qualified Code(s): R11.2 - Nausea with vomiting, unspecified Condition: Stable
[2019-09-23 15:45] LABS: COCAINE, UR NEGATIVE ng/ml (CUTOFF=300); METHADONE, UR NEGATIVE ng/ml (CUTOFF=300); OPIATES, URI NEGATIVE ng/ml (CUTOFF=300); PHENCYCLIDINE,URINE NEGATIVE ng/ml (CUTOFF=25); URINE AMPHETAMINES NEGATIVE ng/ml (CUTOFF=500); URINE BARBITURATES NEGATIVE ng/ml (CUTOFF=200); URINE BENZODIAZEPINES NEGATIVE ng/ml (CUTOFF=200)
[2019-09-23] MEDS ORDERED: SODIUM CHLORIDE 0.9% 500 ML INFUS.BAG IV ONE (16:03)
[2019-09-23] MEDS ORDERED: ONDANSETRON 4 MG/2 ML VIAL ONE (16:10)
[2019-09-23] MEDS ORDERED: PROMETHAZINE HCL 25 MG/1 ML VIAL IVPUSH ONE (16:11)
[2019-09-23] MEDS ORDERED: PROMETHAZINE HCL 25 MG/1 ML VIAL ONE (16:13)
[2019-09-23] MEDS: SODIUM CHLORIDE 1,000 ML IV SCH ×2 (16:54→20:53)
[2019-09-23] MEDS ORDERED: KCL 10 MEQ IVPB 20 MEQ/200 ML INFUS.BAG IVPB ONE (17:08)
--- NOTE | 2019-09-23 17:09 | PN ---
Teaching Attending Note Name of Resident: Tracie Ruiz ATTENDING PHYSICIAN STATEMENT I saw and evaluated the patient. I reviewed the resident's note and discussed the case with the resident. I agree with the resident's findings and plan as documented. SUBJECTIVE: Less lethargic, drowsy but rousable. No fever/chills. No cough/ sputum/dysuria/hematuria/diarrhea. Reports nausea/vomiting for several days. OBJECTIVE: Afebrile, Hemodynamically stable. Last Vital Signs Temp Pulse Resp BP Pulse Ox 97.5 F L 91 H 22 H 142/119 H 100 09/23/19 14:31 09/23/19 15:42 09/23/19 15:42 09/23/19 15:42 09/23/19 15:42 HEENT - Atraumatic, Normocephalic. Heart - S1, S2, RRR, SM Lungs - clear to auscultation. Abdomen - Soft, mild generalized tenderness. Bowel Sounds normal. Extremities - no edema, no calf tenderness. Neuto - Drowsy but rousable to Orientation x 3. Tone/Power normal all 4 extremities. Laboratory Results - last 24 hr 09/23/19 09/23/19 09/23/19 13:39 13:55 13:55 WBC 9.0 RBC 5.23 H Hgb 15.2 Hct 44.6 MCV 85.2 MCH 29.0 MCHC 34.1 RDW 13.7 Plt Count 322 D MPV 10.1 D Absolute Neuts (auto) 7.5 Neutrophils % 83.4 H D Lymphocytes % 10.2 D Monocytes % 5.8 Eosinophils % 0.1 D Basophils % 0.5 Nucleated RBC % 0 PT with INR INR PTT (Actin FS) Anticoagulation Therapy VBG pH POC VBG pCO2 POC VBG pO2 VBG HCO3 VBG O2 Sat (Merrill) VBG Base Excess O2 Delivery Device Oxygen Flow Rate Vent Mode Vent Rate Mechanical Rate Pressure Support Vent Sodium Potassium Chloride Carbon Dioxide Anion Gap BUN Creatinine Est GFR (CKD-EPI)AfAm Est GFR (CKD-EPI)NonAf POC Glucometer > 600 Random Glucose Lactic Acid Calcium Phosphorus Magnesium Total Bilirubin AST ALT Alkaline Phosphatase Creatine Kinase 81 Troponin I < 0.02 Total Protein Albumin Beta-Hydroxybutyrate Serum , Qual Urine Color Urine Appearance Urine pH Ur Specific [place] Urine Protein Urine Glucose (UA) Urine Ketones Urine Blood Urine Nitrite Urine Bilirubin Urine Urobilinogen Ur Leukocyte Esterase Opiates Screen Methadone Screen Barbiturate Screen Phencyclidine Screen Ur Amphetamines Screen MDMA (Ecstasy) Screen Benzodiazepines Screen Cocaine Screen U Marijuana (THC) Screen 09/23/19 09/23/19 09/23/19 13:55 13:55 13:55 WBC RBC Hgb Hct MCV MCH MCHC RDW Plt Count MPV Absolute Neuts (auto) Neutrophils % Lymphocytes % Monocytes % Eosinophils % Basophils % Nucleated RBC % PT with INR 10.90 INR 0.92 PTT (Actin FS) 26.8 Anticoagulation Therapy VBG pH 7.42 H POC VBG pCO2 41 POC VBG pO2 97.9 H VBG HCO3 25.8 VBG O2 Sat (Merrill) 97.5 H VBG Base Excess 1.6 O2 Delivery Device Oxygen Flow Rate Vent Mode Vent Rate Mechanical Rate Pressure Support Vent Sodium 124 L Potassium 3.9 Chloride 83 L Carbon Dioxide 26 Anion Gap 15 BUN 15.9 Creatinine 1.4 H Est GFR (CKD-EPI)AfAm 55.88 Est GFR (CKD-EPI)NonAf 48.22 POC Glucometer Random Glucose 722 H* Lactic Acid Calcium 10.1 Phosphorus 4.5 Magnesium 2.7 H Total Bilirubin 1.4 H AST 27 ALT 40 Alkaline Phosphatase 169 H Creatine Kinase Troponin I Total Protein 9.1 H Albumin 4.9 Beta-Hydroxybutyrate 14.1 H Serum , Qual Urine Color Urine Appearance Urine pH Ur Specific [place] Urine Protein Urine Glucose (UA) Urine Ketones Urine Blood Urine Nitrite Urine Bilirubin Urine Urobilinogen Ur Leukocyte Esterase Opiates Screen Methadone Screen Barbiturate Screen Phencyclidine Screen Ur Amphetamines Screen MDMA (Ecstasy) Screen Benzodiazepines Screen Cocaine Screen U Marijuana (THC) Screen 09/23/19 09/23/19 09/23/19 14:00 14:15 14:25 WBC RBC Hgb Hct MCV MCH MCHC RDW Plt Count MPV Absolute Neuts (auto) Neutrophils % Lymphocytes % Monocytes % Eosinophils % Basophils % Nucleated RBC % PT with INR INR PTT (Actin FS) Anticoagulation Therapy VBG pH POC VBG pCO2 POC VBG pO2 VBG HCO3 VBG O2 Sat (Merrill) VBG Base Excess O2 Delivery Device Oxygen Flow Rate Vent Mode Vent Rate Mechanical Rate Pressure Support Vent Sodium Potassium Chloride Carbon Dioxide Anion Gap BUN Creatinine Est GFR (CKD-EPI)AfAm Est GFR (CKD-EPI)NonAf POC Glucometer Random Glucose Lactic Acid 6.5 H* Calcium Phosphorus Magnesium Total Bilirubin AST ALT Alkaline Phosphatase Creatine Kinase Troponin I Total Protein Albumin Beta-Hydroxybutyrate Serum , Qual Negative Urine Color Yellow Urine Appearance Clear Urine pH 5.0 Ur Specific [place] 1.036 H Urine Protein Negative Urine Glucose (UA) 3+ H Urine Ketones 1+ H Urine Blood Negative Urine Nitrite Negative Urine Bilirubin Negative Urine Urobilinogen 0.2 Ur Leukocyte Esterase Negative Opiates Screen Methadone Screen Barbiturate Screen Phencyclidine Screen Ur Amphetamines Screen MDMA (Ecstasy) Screen Benzodiazepines Screen Cocaine Screen U Marijuana (THC) Screen 09/23/19 09/23/19 09/23/19 14:55 15:21 16:52 WBC RBC Hgb Hct MCV MCH MCHC RDW Plt Count MPV Absolute Neuts (auto) Neutrophils % Lymphocytes % Monocytes % Eosinophils % Basophils % Nucleated RBC % PT with INR INR PTT (Actin FS) Anticoagulation Therapy VBG pH POC VBG pCO2 POC VBG pO2 VBG HCO3 VBG O2 Sat (Merrill) VBG Base Excess O2 Delivery Device Oxygen Flow Rate Vent Mode Vent Rate Mechanical Rate Pressure Support Vent Sodium Potassium Chloride Carbon Dioxide Anion Gap BUN Creatinine Est GFR (CKD-EPI)AfAm Est GFR (CKD-EPI)NonAf POC Glucometer [phone] Random Glucose Lactic Acid Calcium Phosphorus Magnesium Total Bilirubin AST ALT Alkaline Phosphatase Creatine Kinase Troponin I Total Protein Albumin Beta-Hydroxybutyrate Serum , Qual Urine Color Urine Appearance Urine pH Ur Specific [place] Urine Protein Urine Glucose (UA) Urine Ketones Urine Blood Urine Nitrite Urine Bilirubin Urine Urobilinogen Ur Leukocyte Esterase Opiates Screen Negative Methadone Screen Negative Barbiturate Screen Negative Phencyclidine Screen Negative Ur Amphetamines Screen Negative MDMA (Ecstasy) Screen Negative Benzodiazepines Screen Negative Cocaine Screen Negative U Marijuana (THC) Screen Positive A* 09/23/19 17:00 WBC RBC Hgb Hct MCV MCH MCHC RDW Plt Count MPV Absolute Neuts (auto) Neutrophils % Lymphocytes % Monocytes % Eosinophils % Basophils % Nucleated RBC % PT with INR INR PTT (Actin FS) Anticoagulation Therapy No Result Required. VBG pH POC VBG pCO2 POC VBG pO2 VBG HCO3 VBG O2 Sat (Merrill) VBG Base Excess O2 Delivery Device No Result Required. Oxygen Flow Rate No Result Required. Vent Mode No Result Required. Vent Rate No Result Required. Mechanical Rate No Result Required. Pressure Support Vent No Result Required. Sodium Potassium Chloride Carbon Dioxide Anion Gap BUN Creatinine Est GFR (CKD-EPI)AfAm Est GFR (CKD-EPI)NonAf POC Glucometer Random Glucose Lactic Acid Calcium Phosphorus Magnesium Total Bilirubin AST ALT Alkaline Phosphatase Creatine Kinase Troponin I Total Protein Albumin Beta-Hydroxybutyrate Serum , Qual Urine Color Urine Appearance Urine pH Ur Specific [place] Urine Protein Urine Glucose (UA) Urine Ketones Urine Blood Urine Nitrite Urine Bilirubin Urine Urobilinogen Ur Leukocyte Esterase Opiates Screen Methadone Screen Barbiturate Screen Phencyclidine Screen Ur Amphetamines Screen MDMA (Ecstasy) Screen Benzodiazepines Screen Cocaine Screen U Marijuana (THC) Screen Current Medications Generic Name Dose Route Start Last Admin Trade Name Freq PRN Reason Stop Dose Admin Chlorhexidine Gluconate 1 applic 09/23/19 22:00 Hibiclens For Decolonization - TP HS DREA Heparin Sodium (Porcine) 5,000 unit 09/23/19 22:00 Heparin - SQ TID DREA Sodium Chloride 1,000 mls @ 1,000 mls/hr 09/23/19 16:33 09/23/19 16:48 Normal Saline - IV 09/23/19 17:32 1,000 mls/hr ASDIR STA Administration Sodium Chloride 1,000 mls @ 1,000 mls/hr 09/23/19 16:34 09/23/19 16:54 Normal Saline - IV 09/23/19 17:33 Not Given ASDIR STA Sodium Chloride 1,000 mls @ 150 mls/hr 09/23/19 16:45 09/23/19 16:54 Normal Saline - IV Not Given ASDIR DREA Potassium Chloride 10 meq in 100 mls @ 100 mls/hr 09/23/19 17:00 Potassium Chloride 10 Meq Premix Ivpb - IVPB 09/23/19 19:59 Q60M DREA Mupirocin 1 applic 09/23/19 22:00 Bactroban Ointment (For Decolonization) - NS 09/28/19 21:59 BID [facility] Home Medications Medication Instructions Recorded Insulin Lispro [Admelog] 100 unit SQ ASDIR PRN 06/11/18 Klonopin 1 mg PO BID 01/22/19 Promethazine HCl [Phenergan Liquid 5 ml PO TID #120 ml 01/24/19 -] Basaglar Kwikpen U-100 10 units SQ HS 05/05/19 Basaglar Kwikpen U-100 15 units SQ AM 05/05/19 Labetalol HCl [Normodyne -] 200 mg PO ASDIR PRN 05/30/19 Omeprazole 40 mg PO ASDIR 05/30/19 Potassium Chloride [K-Dur -] 40 meq PO DAILY #4 tablet.er 05/31/19 Pantoprazole Sodium [Protonix -] 20 mg PO DAILY #30 tablet.ec 07/31/19 ASSESSMENT AND PLAN: 34 year old female with DM 1, Gastroparesis (s/p jejunotomy, s/p pylorectomy), asthma, hypertension, MJ use, brought in by daughter for poor responsiveness at home after several day history of nausea/vomiting and non-complaint with home insulin. No cough/spiutum/fever/chills/dysuria/diarrhea. 1. Acute metabolic encephalopathy secondary to Hyperosmolar State Serum Glu 722 on presentation Bicarb normal, AG 15, beta hydroxybutyrate positive. Unclear whether DKA as bicarb is normal. ABG requested. No infective focus - UA neg for LE/Nitrites. CXR requested. CT Head requested. Aggressive IV hydration. received 10 units Insulin in ED - may require insulin drip. ICU consulted. q4h BMP, glucose fingertick and q2h Neurochecks. Repeat Lactate. Monitor K. 2. Type 1 DM 2 - Uncontrolled, recent A1C 12.4 Hyperosmolar state as above. Hydration ongoing. Will likely require insulin drip , awaiting repeat labs. 3. Gastroparesis - Severe. s/p pylorectomy/jejunotomy. NPO currently due to poor mental status. DVT Px - Lovenox SQ
[2019-09-23 17:54] LABS: VENOUS PC02 54.3 mmHg (38-52); VENOUS PH 7.36 (7.31-7.41)
--- NOTE | 2019-09-23 17:54 | HP ---
CHIEF COMPLAINT: altered mental status PCP: Dr. Carey HISTORY OF PRESENT ILLNESS: Patient is a 34 year old female with history of poorly controlled Type 1 Diabetes mellitus, gastroparesis, hypertension, was brought in by EMS after daughter found patient unresponsive today. Patient is unable to provide any history as she is very lethargic. Daughter, Yanelis at bedside, reported that patient has been having vomiting episodes since last night. Daughter reported that patient is "always like this", where she would have episodes of vomiting and then becomes unresponsive, and then she would be brought to the hospital and be admitted. Daughter reports patient has been compliant with medications, but is unsure if patient has been taking her medications recently. Of note, patient has had numerous DKA hospitalizations in the past. Otherwise, no reported fever, chills, headache, dizziness, cough, colds, diarrhea, urinary symptoms. ER course was notable for: (1)Glu 722, Anion gap 15, B-hydroxybutyrate 14.1, UA +ketones + glucose, Cr 1.4 , Lactic acid 6.5 (2)ABG (3)IV regular insulin 10 units, IV NS x2L Recent Travel:denies PAST MEDICAL HISTORY: poorly controlled Type 1 Diabetes mellitus gastroparesis hypertension PAST SURGICAL HISTORY: cholecystectomy g-tube placement and removal Social History: Smoking:denies Alcohol:denies Drugs: marijuana Allergies shellfish derived Allergy (Verified 07/27/19 20:24) famotidine [From Pepcid] Adverse Reaction (Verified 07/27/19 20:24) increased abdominal pain metoclopramide [From Reglan] Adverse Reaction (Verified 07/27/19 20:24) ondansetron Adverse Reaction (Verified 07/27/19 20:24) HOME MEDICATIONS: Home Medications Medication Instructions Recorded Insulin Lispro [Admelog] 100 unit SQ ASDIR PRN 06/11/18 Klonopin 1 mg PO BID 01/22/19 Promethazine HCl [Phenergan Liquid 5 ml PO TID #120 ml 01/24/19 -] Basaglar Kwikpen U-100 10 units SQ HS 05/05/19 Basaglar Kwikpen U-100 15 units SQ AM 05/05/19 Labetalol HCl [Normodyne -] 200 mg PO ASDIR PRN 05/30/19 Omeprazole 40 mg PO ASDIR 05/30/19 Potassium Chloride [K-Dur -] 40 meq PO DAILY #4 tablet.er 05/31/19 Pantoprazole Sodium [Protonix -] 20 mg PO DAILY #30 tablet.ec 07/31/19 REVIEW OF SYSTEMS CONSTITUTIONAL: Absent: fever, chills, diaphoresis, generalized weakness, malaise, loss of appetite, weight change HEENT: Absent: rhinorrhea, nasal congestion, throat pain, throat swelling, difficulty swallowing, mouth swelling, ear pain, eye pain, visual changes CARDIOVASCULAR: Absent: chest pain, syncope, palpitations, irregular heart rate, lightheadedness , peripheral edema RESPIRATORY: Absent: cough, shortness of breath, dyspnea with exertion, orthopnea, wheezing, stridor, hemoptysis GASTROINTESTINAL:vomiting Absent: abdominal pain, abdominal distension, nausea, diarrhea, constipation, melena, hematochezia GENITOURINARY: Absent: dysuria, frequency, urgency, hesitancy, hematuria, flank pain, genital pain MUSCULOSKELETAL: Absent: myalgia, arthralgia, joint swelling, back pain, neck pain SKIN: Absent: rash, itching, pallor HEMATOLOGIC/IMMUNOLOGIC: Absent: easy bleeding, easy bruising, lymphadenopathy, frequent infections ENDOCRINE: Absent: unexplained weight gain, unexplained weight loss, heat intolerance, cold intolerance NEUROLOGIC: Absent: headache, focal weakness or paresthesias, dizziness, unsteady gait, seizure, mental status changes, bladder or bowel incontinence PSYCHIATRIC: Absent: anxiety, depression, suicidal or homicidal ideation, hallucinations. PHYSICAL EXAMINATION Vital Signs - 24 hr 09/23/19 09/23/19 09/23/19 14:31 14:34 15:12 Temperature 97.5 F L Pulse Rate 105 H Pulse Rate [ 98 H Apical] Respiratory 17 22 H Rate Blood Pressure 170/113 H Blood Pressure 155/100 [Right Arm] O2 Sat by Pulse 100 100 100 Oximetry (%) 09/23/19 09/23/19 15:13 15:42 Temperature Pulse Rate Pulse Rate [ 91 H Apical] Respiratory 22 H Rate Blood Pressure Blood Pressure 142/119 H [Right Arm] O2 Sat by Pulse 100 100 Oximetry (%) GENERAL: Lethargic, arousable to pain. HEAD: Normal with no signs of trauma. EYES: PERRLA, sclera anicteric, conjunctiva clear. EARS, NOSE, THROAT: Dry mucous membranes. NECK: Normal range of motion, supple. LUNGS: Breath sounds equal, clear to auscultation bilaterally. HEART: Regular rate and rhythm, normal S1 and S2 without murmur, rub or gallop. ABDOMEN: Soft, diffuse mild tenderness on palpation, not distended, hypoactive bowel sounds. MUSCULOSKELETAL: Normal range of motion at all joints. UPPER EXTREMITIES: 2+ pulses, warm, well-perfused. LOWER EXTREMITIES: 2+ pulses, warm, well-perfused. NEUROLOGICAL: Lethargic, arousable to pain. Does not follow commands. Moves all 4 extremities spontaneously. Laboratory Results - last 24 hr 09/23/19 09/23/19 09/23/19 13:39 13:55 13:55 WBC 9.0 RBC 5.23 H Hgb 15.2 Hct 44.6 MCV 85.2 MCH 29.0 MCHC 34.1 RDW 13.7 Plt Count 322 D MPV 10.1 D Absolute Neuts (auto) 7.5 Neutrophils % 83.4 H D Lymphocytes % 10.2 D Monocytes % 5.8 Eosinophils % 0.1 D Basophils % 0.5 Nucleated RBC % 0 PT with INR INR PTT (Actin FS) VBG pH POC VBG pCO2 POC VBG pO2 VBG HCO3 VBG O2 Sat (Merrill) VBG Base Excess Sodium Potassium Chloride Carbon Dioxide Anion Gap BUN Creatinine Est GFR (CKD-EPI)AfAm Est GFR (CKD-EPI)NonAf POC Glucometer > 600 Random Glucose Lactic Acid Calcium Phosphorus Magnesium Total Bilirubin AST ALT Alkaline Phosphatase Creatine Kinase 81 Troponin I < 0.02 Total Protein Albumin Beta-Hydroxybutyrate Serum , Qual Urine Color Urine Appearance Urine pH Ur Specific [place] Urine Protein Urine Glucose (UA) Urine Ketones Urine Blood Urine Nitrite Urine Bilirubin Urine Urobilinogen Ur Leukocyte Esterase Opiates Screen Methadone Screen Barbiturate Screen Phencyclidine Screen Ur Amphetamines Screen MDMA (Ecstasy) Screen Benzodiazepines Screen Cocaine Screen U Marijuana (THC) Screen 09/23/19 09/23/19 09/23/19 13:55 13:55 13:55 WBC RBC Hgb Hct MCV MCH MCHC RDW Plt Count MPV Absolute Neuts (auto) Neutrophils % Lymphocytes % Monocytes % Eosinophils % Basophils % Nucleated RBC % PT with INR 10.90 INR 0.92 PTT (Actin FS) 26.8 VBG pH 7.42 H POC VBG pCO2 41 POC VBG pO2 97.9 H VBG HCO3 25.8 VBG O2 Sat (Merrill) 97.5 H VBG Base Excess 1.6 Sodium 124 L Potassium 3.9 Chloride 83 L Carbon Dioxide 26 Anion Gap 15 BUN 15.9 Creatinine 1.4 H Est GFR (CKD-EPI)AfAm 55.88 Est GFR (CKD-EPI)NonAf 48.22 POC Glucometer Random Glucose 722 H* Lactic Acid Calcium 10.1 Phosphorus 4.5 Magnesium 2.7 H Total Bilirubin 1.4 H AST 27 ALT 40 Alkaline Phosphatase 169 H Creatine Kinase Troponin I Total Protein 9.1 H Albumin 4.9 Beta-Hydroxybutyrate 14.1 H Serum , Qual Urine Color Urine Appearance Urine pH Ur Specific [place] Urine Protein Urine Glucose (UA) Urine Ketones Urine Blood Urine Nitrite Urine Bilirubin Urine Urobilinogen Ur Leukocyte Esterase Opiates Screen Methadone Screen Barbiturate Screen Phencyclidine Screen Ur Amphetamines Screen MDMA (Ecstasy) Screen Benzodiazepines Screen Cocaine Screen U Marijuana (THC) Screen 09/23/19 09/23/19 09/23/19 14:00 14:15 14:25 WBC RBC Hgb Hct MCV MCH MCHC RDW Plt Count MPV Absolute Neuts (auto) Neutrophils % Lymphocytes % Monocytes % Eosinophils % Basophils % Nucleated RBC % PT with INR INR PTT (Actin FS) VBG pH POC VBG pCO2 POC VBG pO2 VBG HCO3 VBG O2 Sat (Merrill) VBG Base Excess Sodium Potassium Chloride Carbon Dioxide Anion Gap BUN Creatinine Est GFR (CKD-EPI)AfAm Est GFR (CKD-EPI)NonAf POC Glucometer Random Glucose Lactic Acid 6.5 H* Calcium Phosphorus Magnesium Total Bilirubin AST ALT Alkaline Phosphatase Creatine Kinase Troponin I Total Protein Albumin Beta-Hydroxybutyrate Serum , Qual Negative Urine Color Yellow Urine Appearance Clear Urine pH 5.0 Ur Specific [place] 1.036 H Urine Protein Negative Urine Glucose (UA) 3+ H Urine Ketones 1+ H Urine Blood Negative Urine Nitrite Negative Urine Bilirubin Negative Urine Urobilinogen 0.2 Ur Leukocyte Esterase Negative Opiates Screen Methadone Screen Barbiturate Screen Phencyclidine Screen Ur Amphetamines Screen MDMA (Ecstasy) Screen Benzodiazepines Screen Cocaine Screen U Marijuana (THC) Screen 09/23/19 09/23/19 09/23/19 14:55 15:21 16:52 WBC RBC Hgb Hct MCV MCH MCHC RDW Plt Count MPV Absolute Neuts (auto) Neutrophils % Lymphocytes % Monocytes % Eosinophils % Basophils % Nucleated RBC % PT with INR INR PTT (Actin FS) VBG pH POC VBG pCO2 POC VBG pO2 VBG HCO3 VBG O2 Sat (Merrill) VBG Base Excess Sodium Potassium Chloride Carbon Dioxide Anion Gap BUN Creatinine Est GFR (CKD-EPI)AfAm Est GFR (CKD-EPI)NonAf POC Glucometer [phone] Random Glucose Lactic Acid Calcium Phosphorus Magnesium Total Bilirubin AST ALT Alkaline Phosphatase Creatine Kinase Troponin I Total Protein Albumin Beta-Hydroxybutyrate Serum , Qual Urine Color Urine Appearance Urine pH Ur Specific [place] Urine Protein Urine Glucose (UA) Urine Ketones Urine Blood Urine Nitrite Urine Bilirubin Urine Urobilinogen Ur Leukocyte Esterase Opiates Screen Negative Methadone Screen Negative Barbiturate Screen Negative Phencyclidine Screen Negative Ur Amphetamines Screen Negative MDMA (Ecstasy) Screen Negative Benzodiazepines Screen Negative Cocaine Screen Negative U Marijuana (THC) Screen Positive A* ASSESSMENT/PLAN: Patient is a 34 year old female with history of poorly controlled Type 1 Diabetes mellitus, gastroparesis, hypertension, was brought in by EMS after daughter found patient unresponsive today. #Acute metabolic encephalopathy likely 2/2 Hyperglycemia, dehydration -Glu 722, Beta hydroxybutyrate elevated at 14.1, UA positive for glucose and ketones -Lactic acid 6.5, will continue to trend -concern for developing DKA, given hyperglycemia and +ketones, although HCO3 is normal -ABG ordered -no obvious source of infection, UA negative, CXR ordered -will give additional IVF boluses x3 and continue standing IVF -Head CT -BMP q4h -BGM q4h with Insulin sliding scale q4h, but will likely need insulin drip given patient's mental status -will hold long acting Basaglar as patient is on NPO -Neurochecks q2h -K 3.9, will replete and continue to monitor BMP -will keep NPO for now given poor mental status -ICU consulted. #LAYNE -Cr 1.4, likely pre-renal 2/2 dehydration -will give IVF boluses and on standing IV NS @150cc/hr -continue to monitor renal function #Elevated T.bili -T.bili 1.4 -will order RUQ US to further evaluate -Direct bilirubin ordered #Gastroparesis -currently NPO, pending mental status changes #HTN -On Labetalol 200mg ?PRN -Will give Norvasc 5mg now #FEN -IV NS @150cc/hr -bmp q4h, replete electrolytes abnormalities PRN -NPO #Prophylaxis -Heparin 5000u sq tid #Disposition -full code Visit type - Emergency Visit Emergency Visit: Yes ED Registration Date: 09/23/19 Care time: The patient presented to the Emergency Department on the above date and was hospitalized for further evaluation of their emergent condition. - New Patient This patient is new to me today: Yes Date on this admission: 09/23/19 - Critical Care Critical Care patient: Yes Total Critical Care Time (in minutes): 38 Critical Care Statement: The care of this patient involved high complexity decision making to prevent further life threatening deterioration of the patient 's condition and/or to evaluate & treat vital organ system(s) failure or risk of failure. ATTENDING PHYSICIAN STATEMENT I saw and evaluated the patient. I reviewed the resident's note and discussed the case with the resident. I agree with the resident's findings and plan as documented. SUBJECTIVE: OBJECTIVE: ASSESSMENT AND PLAN:
[2019-09-23 17:55] LABS: ALLENS TEST POSITIVE; ARTERIAL BLD GAS O2 SATURATION 98.5 % (95-98); ARTERIAL BLOOD GAS PCO2 41.9 mmHg (35-45); ARTERIAL BLOOD GAS PO2 117 mmHg (80-100); ARTERIAL BLOOD GAS pH 7.43 (7.35-7.45)
[2019-09-23 17:55] LABS: VENOUS PO2 < 49 mmHg (28-48)
[2019-09-23] MEDS ORDERED: amLODIPine BESYLATE 5 MG TABLET (FP) PO ONE (18:02)
[2019-09-23 18:14] LABS: ALBUMIN 4.5 g/dl (3.4-5.0); BLOOD UREA NITROGEN 13.4 mg/dL (7-18); CALCIUM 9.5 mg/dL (8.5-10.1); CREATININE 1.1 mg/dL (0.55-1.3); POTASSIUM 3.3 mmol/L (3.5-5.1); TOT PROT 8.4 g/dl (6.4-8.2)
[2019-09-23] MEDS: KCL 10 MEQ IVPB 10 MEQ/100 ML INFUS.BAG IVPB SCH ×2 (19:38→20:53)
[2019-09-23 20:11] LABS: BLOOD UREA NITROGEN 10.5 mg/dL (7-18); CALCIUM 8.1 mg/dL (8.5-10.1); CREATININE 0.9 mg/dL (0.55-1.3); POTASSIUM 3.7 mmol/L (3.5-5.1)
--- NOTE | 2019-09-23 21:25 | CONSULT ---
Consult Consult Specialty:: PULM/CCM Referred by:: Dr. Braden Mcginnis Reason for Consultation:: DKA - History of Present Illness Chief Complaint: Abd Pain History of Present Illness: Ms. Valentin is a 34 y/o woman w/ asthma, HTN, poorly controlled DM 1 c/b gastroparesis (s/p jejunotomy, s/p pylorectomy), brought in by daughter for poor responsiveness at home I/S/O non-compliance 2/2 N/V X several days. No reported cough/spiutum/fever/chills/dysuria/diarrhea. In ED pt is CA+OX3 but lethargic. Labs are most c/w some sort of Hyperosmolar Hyperglycemic Ketotic but Non-Acidotic Syndrome: Na 126, 134 corrected for Glu 720 K 3.9 Cl 83 AGAP 15 Glu 720 Lactic Acid 6.5, unclear etiology Cr. 1.4 up from 0.6 prior Betahydroxybutyrate 14 pH 7.42 with pCO2 41 UA shows 3+ glucose, 1+ ketones, no evidence of UTI WBC 9.0, no evidence of infection - History Source History Provided By: Patient, Medical Record Limitations to Obtaining History: No Limitations - Past Medical History Pulmonary: Yes: Asthma Gastrointestinal: Yes: Constipation, GERD, Other (Gastroparesis) Hepatobiliary: Yes: Cholelithiasis (remoaved by simin berrios) ...LMP: 04/29/18 Endocrine: Yes: Diabetes Mellitus (DM I since age 6) - Past Surgical History Past Surgical History: Yes: Breast Biopsy (fibroadenomas removed bilaterally), Cholecystectomy (Laparoscopic) - Alcohol/Substance Use Hx Alcohol Use: No History of Substance Use: reports: Marijuana (states starting marijuana after her symptoms began in august) - Smoking History Smoking history: Never smoked Have you smoked in the past 12 months: No Aproximately how many cigarettes per day: 2 - Social History Usual Living Arrangement: Alone ADL: Independent 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 History of Recent Travel: No Home Medications - Allergies Allergies/Adverse Reactions: Allergies Allergy/AdvReac Type Severity Reaction Status Date / Time shellfish derived Allergy Verified 07/27/19 20:24 famotidine [From Pepcid] AdvReac Verified 07/27/19 20:24 metoclopramide [From Reglan] AdvReac Verified 07/27/19 20:24 ondansetron AdvReac Verified 07/27/19 20:24 - Home Medications Home Medications: Ambulatory Orders Insulin Lispro [Admelog] 100 unit SQ ASDIR PRN 06/11/18 Klonopin 1 mg PO BID 01/22/19 Promethazine HCl [Phenergan Liquid -] 5 ml PO TID #120 ml 01/24/19 Basaglar Kwikpen U-100 10 units SQ HS 05/05/19 Basaglar Kwikpen U-100 15 units SQ AM 05/05/19 Labetalol HCl [Normodyne -] 200 mg PO ASDIR PRN 05/30/19 Omeprazole 40 mg PO ASDIR 05/30/19 Potassium Chloride [K-Dur -] 40 meq PO DAILY #4 tablet.er 05/31/19 Pantoprazole Sodium [Protonix -] 20 mg PO DAILY #30 tablet.ec 07/31/19 Family Medical History Family History: Unable to Obtain (Pt. uncooperative) Review of Systems Unable to obtain ROS, reason: Pt uncooperative Physical Exam Vital Signs: Vital Signs Temperature 98.5 F 09/23/19 17:49 Pulse Rate 74 09/23/19 20:12 Respiratory Rate 20 09/23/19 20:12 Blood Pressure 155/109 H 09/23/19 20:12 O2 Sat by Pulse Oximetry (%) 100 09/23/19 20:12 Intake & Output 09/20/19 09/21/19 09/22/19 09/23/19 23:59 23:59 23:59 22:59 Intake Total 100 Output Total 500 Balance -400 Weight 52.163 kg Constitutional: Yes: Calm, Cachectic Eyes: Yes: WNL HENT: Yes: WNL Neck: Yes: WNL Cardiovascular: Yes: WNL, Regular Rate and Rhythm, Tachycardia Respiratory: Yes: WNL, Regular, CTA Bilaterally Gastrointestinal: Yes: Soft, Hypoactive Bowel Sounds, Tenderness. No: Tenderness, Rebound ...Rectal Exam: Yes: Deferred Renal/: Yes: WNL Breast(s): Yes: WNL Musculoskeletal: Yes: WNL Extremities: Yes: WNL Edema: No Peripheral Pulses WNL: Yes Integumentary: Yes: Bruising, Tattoos Neurological: Yes: Lethargy ...Motor Strength: WNL Labs: CBC, BMP 09/23/19 13:55 09/23/19 19:40 Anion Gap Anion Gap 11 MMOL/L (8-16) 09/23/19 19:40 Abnormal Lab Results 09/23/19 09/23/19 09/23/19 13:55 13:55 13:55 RBC 5.23 H Neutrophils % 83.4 H D ABG pO2 at Pt Temp ABG HCO3 ABG O2 Sat (Measured) ABG Base Excess VBG pH 7.42 H POC VBG pCO2 POC VBG pO2 97.9 H VBG HCO3 VBG O2 Sat (Merrill) 97.5 H VBG Base Excess Sodium 124 L Potassium Chloride 83 L Creatinine 1.4 H Random Glucose 722 H* Lactic Acid Calcium Magnesium 2.7 H Total Bilirubin 1.4 H AST Alkaline Phosphatase 169 H Total Protein 9.1 H Beta-Hydroxybutyrate 14.1 H Ur Specific [place] Urine Glucose (UA) Urine Ketones U Marijuana (THC) Screen 09/23/19 09/23/19 09/23/19 14:15 14:25 14:55 RBC Neutrophils % ABG pO2 at Pt Temp ABG HCO3 ABG O2 Sat (Measured) ABG Base Excess VBG pH POC VBG pCO2 POC VBG pO2 VBG HCO3 VBG O2 Sat (Merrill) VBG Base Excess Sodium Potassium Chloride Creatinine Random Glucose Lactic Acid 6.5 H* Calcium Magnesium Total Bilirubin AST Alkaline Phosphatase Total Protein Beta-Hydroxybutyrate Ur Specific [place] 1.036 H Urine Glucose (UA) 3+ H Urine Ketones 1+ H U Marijuana (THC) Screen Positive A* 09/23/19 09/23/19 09/23/19 16:33 16:33 16:33 RBC Neutrophils % ABG pO2 at Pt Temp ABG HCO3 ABG O2 Sat (Measured) ABG Base Excess VBG pH POC VBG pCO2 54.3 H POC VBG pO2 < 49 H VBG HCO3 30.1 H VBG O2 Sat (Merrill) 52.4 L VBG Base Excess 3.7 H Sodium 133 L Potassium 3.3 L Chloride 92 L Creatinine Random Glucose 391 H Lactic Acid 5.2 H* Calcium Magnesium Total Bilirubin AST 13 L Alkaline Phosphatase 157 H Total Protein 8.4 H Beta-Hydroxybutyrate Ur Specific [place] Urine Glucose (UA) Urine Ketones U Marijuana (THC) Screen 09/23/19 09/23/19 17:00 19:40 RBC Neutrophils % ABG pO2 at Pt Temp 117 H ABG HCO3 27.2 H ABG O2 Sat (Measured) 98.5 H ABG Base Excess 3.0 H VBG pH POC VBG pCO2 POC VBG pO2 VBG HCO3 VBG O2 Sat (Merrill) VBG Base Excess Sodium Potassium Chloride Creatinine Random Glucose 270 H Lactic Acid Calcium 8.1 L Magnesium Total Bilirubin AST Alkaline Phosphatase Total Protein Beta-Hydroxybutyrate Ur Specific [place] Urine Glucose (UA) Urine Ketones U Marijuana (THC) Screen Imaging - Results Chest X-ray: Image Reviewed (CXR 09/23: Clear (My Read).) Cat Scan: Image Reviewed (NCHCT 09/23: NEGATIVE (My Read).) Ultrasound: Report Reviewed (ABD US 09/23: PENDING.) EKG: Image Reviewed (12-Lead 09/23: RSR @ 106 w/o ectopy, R atrial/Bi-atrial enlargement, qu'ed out in V1 & V2 c/f septal infarct, notice ST flattening in II , II, & aVF c/f inferior ischemia, NO CHANGE when compared w/ EKG's from previous admits. QTc = 502ms. No acute Process (My Read).) Problem List - Problems (1) Lactic acidosis Code(s): E87.2 - ACIDOSIS (2) Weakness Code(s): R53.1 - WEAKNESS (3) Constipation Code(s): K59.00 - CONSTIPATION, UNSPECIFIED (4) DKA (diabetic ketoacidoses) Code(s): E13.10 - OTH DIABETES MELLITUS WITH KETOACIDOSIS WITHOUT COMA (5) Dehydration Code(s): E86.0 - DEHYDRATION (6) Diabetes Code(s): E11.9 - TYPE 2 DIABETES MELLITUS WITHOUT COMPLICATIONS Qualifiers: Diabetes mellitus type: type 1 (7) Diabetic gastroparesis Code(s): E11.43 - TYPE 2 DIABETES W DIABETIC AUTONOMIC (POLY)NEUROPATHY; K31.84 - GASTROPARESIS (8) Insulin dependent diabetes mellitus Code(s): E11.9 - TYPE 2 DIABETES MELLITUS WITHOUT COMPLICATIONS; Z79.4 - USP (CURRENT) USE OF INSULIN Assessment/Plan ASSESS: -Asthma -HHKS -Dehydration -DMI -HTN -Gastroparesis -Hyperbilirubinemia PLAN: -Nebs -IS -NPO -HOLD KLONOPIN -IVFs -Insulin gtt -BGL q1Hr -Trend Beta hydroxybutyrate -Trend LA -Stict I's & O's -Trend BUN/Cr -Replete e-lytes prn -BR -F/u Clxr data -ENDO -Re-Check LFTs -Abd US -Hepatitis Panel -Check HIV -SQH -PPI (on Omeprazole & / or Protonix @ home) Thank you for this interesting Consult MALISSA CHOWDHURY-[facility] PULM/CMM [id number]
[2019-09-23] MEDS ORDERED: CHLORHEXIDINE GLUCONATE 4% CLEANSER FOR DECOLONIZATION TP SCH (22:00)
[2019-09-23] MEDS ORDERED: INSULIN SLIDING SCALE (NOVOLOG) 1 VIAL SQ SCH (22:00)
[2019-09-23] MEDS ORDERED: INSULIN (LEVEMIR) 100 UNITS/ML UNITS SQ SCH (22:00)
[2019-09-23] MEDS ORDERED: LACTATED RINGERS SOLUTION 1,000 ML/1,000 ML INFUS.BAG IV STA ×2 (22:41→23:31)
--- NOTE | 2019-09-23 22:49 | PROC ---
Procedure Note Procedure: PROCEDURE: MIDLINE INDICATION: POOR VENOUS ACCESS & NEED FOR MULTIPLE IV MEDS & FREQUENT BLOOD DRAWS. BRIEF DESCRIPTION: I did evaluate the pts R basilic vein w/ US & I did appreciate the vessel to be healthy, patent, & easily accessible. The site was prepped & draped in the usual sterile fashion. STOP TIME OUT I did conduct a TIME OUT w/ the pt's Nurse at the bedside. I did anesthetize the target site w/ 2cc 1% Lido. I then entered the pts R basilic vein under US guidance w/ a 21G introducer needle & I did appreciate the flow of non- pulsatile dark venous blood. I then threaded a 50cm Nitinol straight tip Flexura guidewire through the needle into the pts R basilic vein & I removed the needle. I then passed a 5.0 Fr MicroEZ Micro introducer w/ vessel dilator over the wire & into the vessel using the seldinger technique. I removed the wire & I appreciated the wire to be intact & whole. I then removed the central stylette & threaded a 5Fr dual lumen 20cm midline through the sheath into the vessel & then I broke away the sheath & advanced the Midline to the 20cm hub. I did appreciate the return of Dark Venous non-pulsatile blood off of both ports. Both ports were flushed & capped in the usual sterile fashion. The line was secured inplace w/ the STAT-Lock system. I placed a Bio-disc on the site where the catheter breaches through the pts skin. I applied a sterile dressing to the entire site. EBL < 5cc. The pt tolerated the procedure well. I have no complications to report. MALISSA CHOWDHURY-[facility] PULM/[facility] [id number]
[2019-09-23] MEDS ORDERED: INSULIN REGULAR HUMAN 100 UNITS/ML *VIAL ONE (22:55)
[2019-09-23] MEDS ORDERED: DEXTROSE 5%-0.45% SALINE 1,000 ML IV SCH (23:00)
[2019-09-23] MEDS ORDERED: INSULIN REGULAR 100 UNITS in SODIUM CHLORIDE 99 ML IVPB SCH (23:00)
[2019-09-23] MEDS: MUPIROCIN 2% TOPICAL OINTMENT FOR DECOLONIZATION NS SCH (23:07)
[2019-09-23] MEDS ORDERED: ALBUTEROL SO4 0.083% IH SOL 2.5 MG/3 ML VIAL.NEB. NEB PRN (23:20)
[2019-09-23] MEDS: HEPARIN NA (PORCINE) 5,000 UNITS/ML 1ML VIAL SQ SCH (23:22)
[2019-09-24] MEDS: KCL 10 MEQ IVPB 10 MEQ/100 ML INFUS.BAG IVPB SCH ×3 (01:35→08:10)
[2019-09-24 03:17] LABS: BLOOD UREA NITROGEN 6.9 mg/dL (7-18); CALCIUM 7.8 mg/dL (8.5-10.1); CREATININE 0.6 mg/dL (0.55-1.3); POTASSIUM 3.4 mmol/L (3.5-5.1)
[2019-09-24] MEDS: HEPARIN NA (PORCINE) 5,000 UNITS/ML 1ML VIAL SQ SCH ×3 (05:36→22:01)
[2019-09-24 07:08] LABS: BASO % 0.4 % (0-2.0); EOS % 0.4 % (0-4.5); HEMATOCRIT 33.4 % (32.4-45.2); HEMOGLOBIN 11.6 GM/dL (10.7-15.3); LYMPH % 22.4 % (8-40); MCHC 34.7 g/dl (32.0-36.0); MEAN CELL VOLUME 83.7 fl (80-96); MEAN PLT VOLUME 9.4 fl (7.5-11.1); NEUT % 69.8 % (42.8-82.8); PLATELET COUNT 253 K/MM3 (134-434); RBC 3.99 M/mm3 (3.60-5.2); RDW 13.7 % (11.6-15.6); WHITE BLOOD COUNT 8.4 K/mm3 (4.0-10.0)
[2019-09-24] MEDS ORDERED: amLODIPine BESYLATE 5 MG TABLET (FP) PO ONE (09:00)
--- NOTE | 2019-09-24 09:02 | PN ---
Teaching Attending Note Name of Resident: Kasey Helm ATTENDING PHYSICIAN STATEMENT I saw and evaluated the patient. I reviewed the resident's note and discussed the case with the resident. I agree with the resident's findings and plan as documented. SUBJECTIVE:Looks drowsy Fs are well controlled OBJECTIVE: Vital Signs Period Temp Pulse Resp BP Sys/Powell Pulse Ox Last 24 Hr 97.5 F-99.2 F 64-105 14-22 142-170/90-119 100-100 Elderly F not in distress able to ambulate HEEENT:Mm moist no anemia, PERRLA, EOMI NECK: No JVD no Bruit CHEST: CTA B/L CVS: S1S2 IR no m/g/r ABD: S/P PEG No distention, non tender Bs + EXT:No edema feet [employer] ENG[employer] TECHNICIAN:AOX3 non focal CBC, BMP 09/24/19 05:00 Active Medications Albuterol Sulfate (Ventolin 0.083% Nebulizer Soln -) 1 amp NEB Q6H PRN PRN Reason: SHORT OF BREATH/WHEEZING Chlorhexidine Gluconate (Hibiclens For Decolonization -) 1 applic TP HS [facility] Last Admin: 09/23/19 23:08 Dose: 1 applic Heparin Sodium (Porcine) (Heparin -) 5,000 unit SQ TID DREA Last Admin: 09/24/19 05:36 Dose: 5,000 unit Insulin Human Regular 100 (units/ Sodium Chloride) 100 mls @ 5.21 mls/hr IVPB TITR DREA; Protocol Last Titration: 09/24/19 02:40 Dose: 0.01 units/kg/hr, 1 mls/hr Dextrose/Sodium Chloride (D5-1/2ns -) 1,000 mls @ 42 mls/hr IV ASDIR [facility] Last Admin: 09/24/19 02:40 Dose: 42 mls/hr Magnesium Sulfate (Magnesium Sulfate) 2 gm IVPB ONCE ONE Stop: 09/24/19 08:57 Mupirocin (Bactroban Ointment (For Decolonization) -) 1 applic NS BID [facility] Stop: 09/28/19 21:59 Last Admin: 09/23/19 23:07 Dose: Not Given ASSESSMENT AND PLAN:34 year old female with DM 1, Gastroparesis (s/p jejunotomy , s/p pylorectomy), asthma, hypertension, MJ use, brought in by daughter for poor responsiveness at home after several day history of nausea/vomiting and non -complaint with home insulin. No cough/spiutum/fever/chills/dysuria/diarrhea. Problem List - Problems (1) DKA (diabetic ketoacidoses) Assessment/Plan: On insulin drip AG closed patient feels gradually improving Problems reviewed: Yes Code(s): E11.10 - TYPE 2 DIABETES MELLITUS WITH KETOACIDOSIS WITHOUT COMA Qualifiers: Diabetes mellitus type: type 1 (2) Nausea and vomiting Assessment/Plan: Cont Zofran and PPI Problems reviewed: Yes Code(s): R11.2 - NAUSEA WITH VOMITING, UNSPECIFIED Qualifiers: Vomiting type: unspecified Vomiting Intractability: non-intractable Qualified Code(s): R11.2 - Nausea with vomiting, unspecified (3) Dehydration Assessment/Plan: Improved Problems reviewed: Yes Code(s): E86.0 - DEHYDRATION (4) LAYNE (acute kidney injury) Assessment/Plan: Improved after IV hydration Problems reviewed: Yes Code(s): N17.9 - ACUTE KIDNEY FAILURE, UNSPECIFIED
[2019-09-24] MEDS: PROMETHAZINE HCL 25 MG/1 ML VIAL IVPB ONE ×2 (09:08→09:47)
[2019-09-24] MEDS ORDERED: MAGNESIUM SULF 50% (8.12 MEQ/2 ML-1 GM VIAL) IVPB ONE (09:15)
--- NOTE | 2019-09-24 10:04 | EKG ---
Test Reason : Blood Pressure : / mmHG Vent. Rate : 106 BPM Atrial Rate : 106 BPM P-R Int : 134 ms QRS Dur : 078 ms QT Int : 378 ms P-R-T Axes : 083 064 -01 degrees QTc Int : 502 ms SINUS TACHYCARDIA RIGHT ATRIAL ENLARGEMENT T WAVE ABNORMALITY, CONSIDER INFERIOR ISCHEMIA ABNORMAL ECG WHEN COMPARED WITH ECG OF 27-JUL-2019 21:02, Confirmed by CAROLA MCPHERSON MD ([id number]) on 09/24/2019 10:03:54 AM Referred By: Confirmed By:CAROLA MCPHERSON MD
[2019-09-24 10:44] LABS: ALBUMIN 3.1 g/dl (3.4-5.0); BILIRUBIN,DIRECT 0.2 mg/dL (0.0-0.2); BILIRUBIN,TOTAL 0.9 mg/dL (0.2-1); BLOOD UREA NITROGEN 5.7 mg/dL (7-18); CALCIUM 7.9 mg/dL (8.5-10.1); CREATININE 0.4 mg/dL (0.55-1.3); MAGNESIUM 1.7 mg/dL (1.8-2.4); POTASSIUM 3.5 mmol/L (3.5-5.1); TOT PROT 5.8 g/dl (6.4-8.2)
[2019-09-24] MEDS ORDERED: PT OWN MED DRAWER 7, Y5N ONE (11:20)
[2019-09-24] MEDS: MUPIROCIN 2% TOPICAL OINTMENT FOR DECOLONIZATION NS SCH (11:34)
[2019-09-24] MEDS ORDERED: LABETALOL HCL 100 MG TABLET (FP) PO SCH (11:45)
--- NOTE | 2019-09-24 12:10 | PN ---
Teaching Attending Note Name of Resident: Jeremías Bright ATTENDING PHYSICIAN STATEMENT I saw and evaluated the patient. I reviewed the resident's note and discussed the case with the resident. I agree with the resident's findings and plan as documented. SUBJECTIVE: Patient seen and examined in the ICU. Sleepy but arousable. Blood glucose improving. AG closing. Improving renal function. Intake & Output 09/22/19 09/23/19 09/23/19 09/24/19 00:59 00:59 23:59 23:59 Intake Total 2437 Output Total 2000 Balance 437 Weight Last Vital Signs Temp Pulse Resp BP Pulse Ox 98.0 F 67 18 166/108 H 100 09/24/19 11:00 09/24/19 11:00 09/24/19 11:00 09/24/19 11:00 09/23/19 21:00 Active Medications Albuterol Sulfate (Ventolin 0.083% Nebulizer Soln -) 1 amp NEB Q6H PRN PRN Reason: SHORT OF BREATH/WHEEZING Chlorhexidine Gluconate (Hibiclens For Decolonization -) 1 applic TP HS [facility] Last Admin: 09/23/19 23:08 Dose: 1 applic Heparin Sodium (Porcine) (Heparin -) 5,000 unit SQ TID DREA Last Admin: 09/24/19 05:36 Dose: 5,000 unit Insulin Aspart (Novolog Vial Sliding Scale -) 1 vial SQ [facility]; Protocol Insulin Detemir (Levemir Vial) 10 units SQ HS DREA Insulin Detemir (Levemir Vial) 15 units SQ HS DREA Labetalol HCl (Normodyne -) 100 mg PO BID DREA Mupirocin (Bactroban Ointment (For Decolonization) -) 1 applic NS BID DREA Stop: 09/28/19 21:59 Last Admin: 09/24/19 11:34 Dose: Not Given Constitutional: Yes: Sleepy, Cachectic Eyes: Yes: WNL HENT: Yes: WNL Neck: Yes: WNL Cardiovascular: Yes: WNL, Regular Rate and Rhythm, Tachycardia Respiratory: Yes: WNL, Regular, CTA Bilaterally Gastrointestinal: Yes: Soft, Hypoactive Bowel Sounds, Tenderness. No: Tenderness, Rebound ...Rectal Exam: Yes: Deferred Renal/: Yes: WNL Breast(s): Yes: WNL Musculoskeletal: Yes: WNL Extremities: Yes: WNL Edema: No Peripheral Pulses WNL: Yes Integumentary: Yes: Bruising, Tattoos Neurological: Yes: Lethargy ...Motor Strength: WNL Labs: Laboratory Results - last 24 hr 09/23/19 09/23/19 09/23/19 13:39 13:55 13:55 WBC 9.0 RBC 5.23 H Hgb 15.2 Hct 44.6 MCV 85.2 MCH 29.0 MCHC 34.1 RDW 13.7 Plt Count 322 D MPV 10.1 D Absolute Neuts (auto) 7.5 Neutrophils % 83.4 H D Lymphocytes % 10.2 D Monocytes % 5.8 Eosinophils % 0.1 D Basophils % 0.5 Nucleated RBC % 0 PT with INR INR PTT (Actin FS) Anticoagulation Therapy Puncture Site ABG pH ABG pCO2 at Pt Temp ABG pO2 at Pt Temp ABG HCO3 ABG O2 Sat (Measured) ABG O2 Content ABG Base Excess Jim Test VBG pH POC VBG pCO2 POC VBG pO2 VBG HCO3 VBG O2 Sat (Merrill) VBG Base Excess O2 Delivery Device Oxygen Flow Rate Vent Mode Vent Rate Mechanical Rate Pressure Support Vent Sodium Potassium Chloride Carbon Dioxide Anion Gap BUN Creatinine Est GFR (CKD-EPI)AfAm Est GFR (CKD-EPI)NonAf POC Glucometer > 600 Random Glucose Hemoglobin A1c % Lactic Acid Calcium Phosphorus Magnesium Total Bilirubin Direct Bilirubin AST ALT Alkaline Phosphatase Creatine Kinase 81 Troponin I < 0.02 Total Protein Albumin Beta-Hydroxybutyrate TSH Serum , Qual Urine Color Urine Appearance Urine pH Ur Specific [place] Urine Protein Urine Glucose (UA) Urine Ketones Urine Blood Urine Nitrite Urine Bilirubin Urine Urobilinogen Ur Leukocyte Esterase Opiates Screen Methadone Screen Barbiturate Screen Phencyclidine Screen Ur Amphetamines Screen MDMA (Ecstasy) Screen Benzodiazepines Screen Cocaine Screen U Marijuana (THC) Screen HIV 1&2 Antibody Screen HIV P24 Antigen 09/23/19 09/23/19 09/23/19 13:55 13:55 13:55 WBC RBC Hgb Hct MCV MCH MCHC RDW Plt Count MPV Absolute Neuts (auto) Neutrophils % Lymphocytes % Monocytes % Eosinophils % Basophils % Nucleated RBC % PT with INR 10.90 INR 0.92 PTT (Actin FS) 26.8 Anticoagulation Therapy Puncture Site ABG pH ABG pCO2 at Pt Temp ABG pO2 at Pt Temp ABG HCO3 ABG O2 Sat (Measured) ABG O2 Content ABG Base Excess Jim Test VBG pH 7.42 H POC VBG pCO2 41 POC VBG pO2 97.9 H VBG HCO3 25.8 VBG O2 Sat (Merrill) 97.5 H VBG Base Excess 1.6 O2 Delivery Device Oxygen Flow Rate Vent Mode Vent Rate Mechanical Rate Pressure Support Vent Sodium 124 L Potassium 3.9 Chloride 83 L Carbon Dioxide 26 Anion Gap 15 BUN 15.9 Creatinine 1.4 H Est GFR (CKD-EPI)AfAm 55.88 Est GFR (CKD-EPI)NonAf 48.22 POC Glucometer Random Glucose 722 H* Hemoglobin A1c % Lactic Acid Calcium 10.1 Phosphorus 4.5 Magnesium 2.7 H Total Bilirubin 1.4 H Direct Bilirubin AST 27 ALT 40 Alkaline Phosphatase 169 H Creatine Kinase Troponin I Total Protein 9.1 H Albumin 4.9 Beta-Hydroxybutyrate 14.1 H TSH Serum , Qual Urine Color Urine Appearance Urine pH Ur Specific [place] Urine Protein Urine Glucose (UA) Urine Ketones Urine Blood Urine Nitrite Urine Bilirubin Urine Urobilinogen Ur Leukocyte Esterase Opiates Screen Methadone Screen Barbiturate Screen Phencyclidine Screen Ur Amphetamines Screen MDMA (Ecstasy) Screen Benzodiazepines Screen Cocaine Screen U Marijuana (THC) Screen HIV 1&2 Antibody Screen HIV P24 Antigen 09/23/19 09/23/19 09/23/19 14:00 14:15 14:25 WBC RBC Hgb Hct MCV MCH MCHC RDW Plt Count MPV Absolute Neuts (auto) Neutrophils % Lymphocytes % Monocytes % Eosinophils % Basophils % Nucleated RBC % PT with INR INR PTT (Actin FS) Anticoagulation Therapy Puncture Site ABG pH ABG pCO2 at Pt Temp ABG pO2 at Pt Temp ABG HCO3 ABG O2 Sat (Measured) ABG O2 Content ABG Base Excess Jim Test VBG pH POC VBG pCO2 POC VBG pO2 VBG HCO3 VBG O2 Sat (Merrill) VBG Base Excess O2 Delivery Device Oxygen Flow Rate Vent Mode Vent Rate Mechanical Rate Pressure Support Vent Sodium Potassium Chloride Carbon Dioxide Anion Gap BUN Creatinine Est GFR (CKD-EPI)AfAm Est GFR (CKD-EPI)NonAf POC Glucometer Random Glucose Hemoglobin A1c % Lactic Acid 6.5 H* Calcium Phosphorus Magnesium Total Bilirubin Direct Bilirubin AST ALT Alkaline Phosphatase Creatine Kinase Troponin I Total Protein Albumin Beta-Hydroxybutyrate TSH Serum , Qual Negative Urine Color Yellow Urine Appearance Clear Urine pH 5.0 Ur Specific [place] 1.036 H Urine Protein Negative Urine Glucose (UA) 3+ H Urine Ketones 1+ H Urine Blood Negative Urine Nitrite Negative Urine Bilirubin Negative Urine Urobilinogen 0.2 Ur Leukocyte Esterase Negative Opiates Screen Methadone Screen Barbiturate Screen Phencyclidine Screen Ur Amphetamines Screen MDMA (Ecstasy) Screen Benzodiazepines Screen Cocaine Screen U Marijuana (THC) Screen HIV 1&2 Antibody Screen HIV P24 Antigen 09/23/19 09/23/19 09/23/19 14:55 15:21 16:33 WBC RBC Hgb Hct MCV MCH MCHC RDW Plt Count MPV Absolute Neuts (auto) Neutrophils % Lymphocytes % Monocytes % Eosinophils % Basophils % Nucleated RBC % PT with INR INR PTT (Actin FS) Anticoagulation Therapy Puncture Site ABG pH ABG pCO2 at Pt Temp ABG pO2 at Pt Temp ABG HCO3 ABG O2 Sat (Measured) ABG O2 Content ABG Base Excess Jim Test VBG pH POC VBG pCO2 POC VBG pO2 VBG HCO3 VBG O2 Sat (Merrill) VBG Base Excess O2 Delivery Device Oxygen Flow Rate Vent Mode Vent Rate Mechanical Rate Pressure Support Vent Sodium Potassium Chloride Carbon Dioxide Anion Gap BUN Creatinine Est GFR (CKD-EPI)AfAm Est GFR (CKD-EPI)NonAf POC Glucometer 589 Random Glucose Hemoglobin A1c % Lactic Acid 5.2 H* Calcium Phosphorus Magnesium Total Bilirubin Direct Bilirubin AST ALT Alkaline Phosphatase Creatine Kinase Troponin I Total Protein Albumin Beta-Hydroxybutyrate TSH Serum , Qual Urine Color Urine Appearance Urine pH Ur Specific [place] Urine Protein Urine Glucose (UA) Urine Ketones Urine Blood Urine Nitrite Urine Bilirubin Urine Urobilinogen Ur Leukocyte Esterase Opiates Screen Negative Methadone Screen Negative Barbiturate Screen Negative Phencyclidine Screen Negative Ur Amphetamines Screen Negative MDMA (Ecstasy) Screen Negative Benzodiazepines Screen Negative Cocaine Screen Negative U Marijuana (THC) Screen Positive A* HIV 1&2 Antibody Screen HIV P24 Antigen 09/23/19 09/23/19 09/23/19 16:33 16:33 16:52 WBC RBC Hgb Hct MCV MCH MCHC RDW Plt Count MPV Absolute Neuts (auto) Neutrophils % Lymphocytes % Monocytes % Eosinophils % Basophils % Nucleated RBC % PT with INR INR PTT (Actin FS) Anticoagulation Therapy Puncture Site ABG pH ABG pCO2 at Pt Temp ABG pO2 at Pt Temp ABG HCO3 ABG O2 Sat (Measured) ABG O2 Content ABG Base Excess Jim Test VBG pH 7.36 POC VBG pCO2 54.3 H POC VBG pO2 < 49 H VBG HCO3 30.1 H VBG O2 Sat (Merrill) 52.4 L VBG Base Excess 3.7 H O2 Delivery Device Oxygen Flow Rate Vent Mode Vent Rate Mechanical Rate Pressure Support Vent Sodium 133 L Potassium 3.3 L Chloride 92 L Carbon Dioxide 29 Anion Gap 12 BUN 13.4 Creatinine 1.1 Est GFR (CKD-EPI)AfAm 74.80 Est GFR (CKD-EPI)NonAf 64.54 POC Glucometer 441 Random Glucose 391 H Hemoglobin A1c % Lactic Acid Calcium 9.5 Phosphorus Magnesium Total Bilirubin 1.0 Direct Bilirubin AST 13 L ALT 37 Alkaline Phosphatase 157 H Creatine Kinase Troponin I Total Protein 8.4 H Albumin 4.5 Beta-Hydroxybutyrate TSH Serum , Qual Urine Color Urine Appearance Urine pH Ur Specific [place] Urine Protein Urine Glucose (UA) Urine Ketones Urine Blood Urine Nitrite Urine Bilirubin Urine Urobilinogen Ur Leukocyte Esterase Opiates Screen Methadone Screen Barbiturate Screen Phencyclidine Screen Ur Amphetamines Screen MDMA (Ecstasy) Screen Benzodiazepines Screen Cocaine Screen U Marijuana (THC) Screen HIV 1&2 Antibody Screen HIV P24 Antigen 09/23/19 09/23/19 09/23/19 17:00 17:55 19:40 WBC RBC Hgb Hct MCV MCH MCHC RDW Plt Count MPV Absolute Neuts (auto) Neutrophils % Lymphocytes % Monocytes % Eosinophils % Basophils % Nucleated RBC % PT with INR INR PTT (Actin FS) Anticoagulation Therapy No Result Required. Puncture Site Right radial ABG pH 7.43 ABG pCO2 at Pt Temp 41.9 ABG pO2 at Pt Temp 117 H ABG HCO3 27.2 H ABG O2 Sat (Measured) 98.5 H ABG O2 Content 17.7 ABG Base Excess 3.0 H Jim Test Positive VBG pH POC VBG pCO2 POC VBG pO2 VBG HCO3 VBG O2 Sat (Merrill) VBG Base Excess O2 Delivery Device Room air Oxygen Flow Rate Yes Vent Mode No Result Required. Vent Rate No Result Required. Mechanical Rate No Result Required. Pressure Support Vent No Result Required. Sodium 136 Potassium 3.7 Chloride 99 Carbon Dioxide 27 Anion Gap 11 BUN 10.5 Creatinine 0.9 Est GFR (CKD-EPI)AfAm 95.34 Est GFR (CKD-EPI)NonAf 82.26 POC Glucometer 297 Random Glucose 270 H Hemoglobin A1c % Lactic Acid Calcium 8.1 L Phosphorus Magnesium Total Bilirubin Direct Bilirubin AST ALT Alkaline Phosphatase Creatine Kinase Troponin I Total Protein Albumin Beta-Hydroxybutyrate TSH Serum , Qual Urine Color Urine Appearance Urine pH Ur Specific [place] Urine Protein Urine Glucose (UA) Urine Ketones Urine Blood Urine Nitrite Urine Bilirubin Urine Urobilinogen Ur Leukocyte Esterase Opiates Screen Methadone Screen Barbiturate Screen Phencyclidine Screen Ur Amphetamines Screen MDMA (Ecstasy) Screen Benzodiazepines Screen Cocaine Screen U Marijuana (THC) Screen HIV 1&2 Antibody Screen HIV P24 Antigen 09/23/19 09/23/19 09/24/19 20:56 23:27 00:22 WBC RBC Hgb Hct MCV MCH MCHC RDW Plt Count MPV Absolute Neuts (auto) Neutrophils % Lymphocytes % Monocytes % Eosinophils % Basophils % Nucleated RBC % PT with INR INR PTT (Actin FS) Anticoagulation Therapy Puncture Site ABG pH ABG pCO2 at Pt Temp ABG pO2 at Pt Temp ABG HCO3 ABG O2 Sat (Measured) ABG O2 Content ABG Base Excess Jim Test VBG pH POC VBG pCO2 POC VBG pO2 VBG HCO3 VBG O2 Sat (Merrill) VBG Base Excess O2 Delivery Device Oxygen Flow Rate Vent Mode Vent Rate Mechanical Rate Pressure Support Vent Sodium Potassium Chloride Carbon Dioxide Anion Gap BUN Creatinine Est GFR (CKD-EPI)AfAm Est GFR (CKD-EPI)NonAf POC Glucometer 210 299 276 Random Glucose Hemoglobin A1c % Lactic Acid Calcium Phosphorus Magnesium Total Bilirubin Direct Bilirubin AST ALT Alkaline Phosphatase Creatine Kinase Troponin I Total Protein Albumin Beta-Hydroxybutyrate TSH Serum , Qual Urine Color Urine Appearance Urine pH Ur Specific [place] Urine Protein Urine Glucose (UA) Urine Ketones Urine Blood Urine Nitrite Urine Bilirubin Urine Urobilinogen Ur Leukocyte Esterase Opiates Screen Methadone Screen Barbiturate Screen Phencyclidine Screen Ur Amphetamines Screen MDMA (Ecstasy) Screen Benzodiazepines Screen Cocaine Screen U Marijuana (THC) Screen HIV 1&2 Antibody Screen HIV P24 Antigen 09/24/19 09/24/19 09/24/19 01:29 02:31 02:50 WBC RBC Hgb Hct MCV MCH MCHC RDW Plt Count MPV Absolute Neuts (auto) Neutrophils % Lymphocytes % Monocytes % Eosinophils % Basophils % Nucleated RBC % PT with INR INR PTT (Actin FS) Anticoagulation Therapy Puncture Site ABG pH ABG pCO2 at Pt Temp ABG pO2 at Pt Temp ABG HCO3 ABG O2 Sat (Measured) ABG O2 Content ABG Base Excess Jim Test VBG pH POC VBG pCO2 POC VBG pO2 VBG HCO3 VBG O2 Sat (Merrill) VBG Base Excess O2 Delivery Device Oxygen Flow Rate Vent Mode Vent Rate Mechanical Rate Pressure Support Vent Sodium 137 Potassium 3.4 L Chloride 103 Carbon Dioxide 29 Anion Gap 6 L BUN 6.9 L Creatinine 0.6 Est GFR (CKD-EPI)AfAm 135.91 Est GFR (CKD-EPI)NonAf 117.26 POC Glucometer 191 113 Random Glucose 139 H Hemoglobin A1c % Lactic Acid Calcium 7.8 L Phosphorus Magnesium Total Bilirubin Direct Bilirubin AST ALT Alkaline Phosphatase Creatine Kinase Troponin I Total Protein Albumin Beta-Hydroxybutyrate TSH Serum , Qual Urine Color Urine Appearance Urine pH Ur Specific [place] Urine Protein Urine Glucose (UA) Urine Ketones Urine Blood Urine Nitrite Urine Bilirubin Urine Urobilinogen Ur Leukocyte Esterase Opiates Screen Methadone Screen Barbiturate Screen Phencyclidine Screen Ur Amphetamines Screen MDMA (Ecstasy) Screen Benzodiazepines Screen Cocaine Screen U Marijuana (THC) Screen HIV 1&2 Antibody Screen HIV P24 Antigen 09/24/19 09/24/19 09/24/19 03:25 04:28 05:00 WBC 8.4 RBC 3.99 Hgb 11.6 Hct 33.4 D MCV 83.7 MCH 29.0 MCHC 34.7 RDW 13.7 Plt Count 253 D MPV 9.4 Absolute Neuts (auto) 5.9 Neutrophils % 69.8 Lymphocytes % 22.4 D Monocytes % 7.0 Eosinophils % 0.4 D Basophils % 0.4 Nucleated RBC % 0 PT with INR INR PTT (Actin FS) Anticoagulation Therapy Puncture Site ABG pH ABG pCO2 at Pt Temp ABG pO2 at Pt Temp ABG HCO3 ABG O2 Sat (Measured) ABG O2 Content ABG Base Excess Jim Test VBG pH POC VBG pCO2 POC VBG pO2 VBG HCO3 VBG O2 Sat (Merrill) VBG Base Excess O2 Delivery Device Oxygen Flow Rate Vent Mode Vent Rate Mechanical Rate Pressure Support Vent Sodium Potassium Chloride Carbon Dioxide Anion Gap BUN Creatinine Est GFR (CKD-EPI)AfAm Est GFR (CKD-EPI)NonAf POC Glucometer 125 116 Random Glucose Hemoglobin A1c % Lactic Acid Calcium Phosphorus Magnesium Total Bilirubin Direct Bilirubin AST ALT Alkaline Phosphatase Creatine Kinase Troponin I Total Protein Albumin Beta-Hydroxybutyrate TSH Serum , Qual Urine Color Urine Appearance Urine pH Ur Specific [place] Urine Protein Urine Glucose (UA) Urine Ketones Urine Blood Urine Nitrite Urine Bilirubin Urine Urobilinogen Ur Leukocyte Esterase Opiates Screen Methadone Screen Barbiturate Screen Phencyclidine Screen Ur Amphetamines Screen MDMA (Ecstasy) Screen Benzodiazepines Screen Cocaine Screen U Marijuana (THC) Screen HIV 1&2 Antibody Screen HIV P24 Antigen 09/24/19 09/24/19 09/24/19 05:00 05:00 05:00 WBC RBC Hgb Hct MCV MCH MCHC RDW Plt Count MPV Absolute Neuts (auto) Neutrophils % Lymphocytes % Monocytes % Eosinophils % Basophils % Nucleated RBC % PT with INR INR PTT (Actin FS) Anticoagulation Therapy Puncture Site ABG pH ABG pCO2 at Pt Temp ABG pO2 at Pt Temp ABG HCO3 ABG O2 Sat (Measured) ABG O2 Content ABG Base Excess Jim Test VBG pH POC VBG pCO2 POC VBG pO2 VBG HCO3 VBG O2 Sat (Merrill) VBG Base Excess O2 Delivery Device Oxygen Flow Rate Vent Mode Vent Rate Mechanical Rate Pressure Support Vent Sodium 135 L Potassium 3.5 Chloride 100 Carbon Dioxide 28 Anion Gap 6 L BUN 5.7 L Creatinine 0.4 L Est GFR (CKD-EPI)AfAm 155.30 Est GFR (CKD-EPI)NonAf 134.00 POC Glucometer Random Glucose 121 H Hemoglobin A1c % 12.6 H Lactic Acid Calcium 7.9 L Phosphorus Magnesium 1.7 L Total Bilirubin 0.9 Direct Bilirubin 0.2 AST 17 ALT 25 Alkaline Phosphatase 99 Creatine Kinase Troponin I Total Protein 5.8 L Albumin 3.1 L Beta-Hydroxybutyrate TSH 0.13 L Serum , Qual Urine Color Urine Appearance Urine pH Ur Specific [place] Urine Protein Urine Glucose (UA) Urine Ketones Urine Blood Urine Nitrite Urine Bilirubin Urine Urobilinogen Ur Leukocyte Esterase Opiates Screen Methadone Screen Barbiturate Screen Phencyclidine Screen Ur Amphetamines Screen MDMA (Ecstasy) Screen Benzodiazepines Screen Cocaine Screen U Marijuana (THC) Screen HIV 1&2 Antibody Screen Negative HIV P24 Antigen Negative 09/24/19 09/24/19 09/24/19 05:16 06:20 07:25 WBC RBC Hgb Hct MCV MCH MCHC RDW Plt Count MPV Absolute Neuts (auto) Neutrophils % Lymphocytes % Monocytes % Eosinophils % Basophils % Nucleated RBC % PT with INR INR PTT (Actin FS) Anticoagulation Therapy Puncture Site ABG pH ABG pCO2 at Pt Temp ABG pO2 at Pt Temp ABG HCO3 ABG O2 Sat (Measured) ABG O2 Content ABG Base Excess Jim Test VBG pH POC VBG pCO2 POC VBG pO2 VBG HCO3 VBG O2 Sat (Merrill) VBG Base Excess O2 Delivery Device Oxygen Flow Rate Vent Mode Vent Rate Mechanical Rate Pressure Support Vent Sodium Potassium Chloride Carbon Dioxide Anion Gap BUN Creatinine Est GFR (CKD-EPI)AfAm Est GFR (CKD-EPI)NonAf POC Glucometer 116 117 120 Random Glucose Hemoglobin A1c % Lactic Acid Calcium Phosphorus Magnesium Total Bilirubin Direct Bilirubin AST ALT Alkaline Phosphatase Creatine Kinase Troponin I Total Protein Albumin Beta-Hydroxybutyrate TSH Serum , Qual Urine Color Urine Appearance Urine pH Ur Specific [place] Urine Protein Urine Glucose (UA) Urine Ketones Urine Blood Urine Nitrite Urine Bilirubin Urine Urobilinogen Ur Leukocyte Esterase Opiates Screen Methadone Screen Barbiturate Screen Phencyclidine Screen Ur Amphetamines Screen MDMA (Ecstasy) Screen Benzodiazepines Screen Cocaine Screen U Marijuana (THC) Screen HIV 1&2 Antibody Screen HIV P24 Antigen 09/24/19 09/24/19 09/24/19 08:21 09:22 10:21 WBC RBC Hgb Hct MCV MCH MCHC RDW Plt Count MPV Absolute Neuts (auto) Neutrophils % Lymphocytes % Monocytes % Eosinophils % Basophils % Nucleated RBC % PT with INR INR PTT (Actin FS) Anticoagulation Therapy Puncture Site ABG pH ABG pCO2 at Pt Temp ABG pO2 at Pt Temp ABG HCO3 ABG O2 Sat (Measured) ABG O2 Content ABG Base Excess Jim Test VBG pH POC VBG pCO2 POC VBG pO2 VBG HCO3 VBG O2 Sat (Merrill) VBG Base Excess O2 Delivery Device Oxygen Flow Rate Vent Mode Vent Rate Mechanical Rate Pressure Support Vent Sodium Potassium Chloride Carbon Dioxide Anion Gap BUN Creatinine Est GFR (CKD-EPI)AfAm Est GFR (CKD-EPI)NonAf POC Glucometer 123 156 Random Glucose Hemoglobin A1c % Lactic Acid 1.0 Calcium Phosphorus Magnesium Total Bilirubin Direct Bilirubin AST ALT Alkaline Phosphatase Creatine Kinase Troponin I Total Protein Albumin Beta-Hydroxybutyrate TSH Serum , Qual Urine Color Urine Appearance Urine pH Ur Specific [place] Urine Protein Urine Glucose (UA) Urine Ketones Urine Blood Urine Nitrite Urine Bilirubin Urine Urobilinogen Ur Leukocyte Esterase Opiates Screen Methadone Screen Barbiturate Screen Phencyclidine Screen Ur Amphetamines Screen MDMA (Ecstasy) Screen Benzodiazepines Screen Cocaine Screen U Marijuana (THC) Screen HIV 1&2 Antibody Screen HIV P24 Antigen 09/24/19 09/24/19 10:33 11:24 WBC RBC Hgb Hct MCV MCH MCHC RDW Plt Count MPV Absolute Neuts (auto) Neutrophils % Lymphocytes % Monocytes % Eosinophils % Basophils % Nucleated RBC % PT with INR INR PTT (Actin FS) Anticoagulation Therapy Puncture Site ABG pH ABG pCO2 at Pt Temp ABG pO2 at Pt Temp ABG HCO3 ABG O2 Sat (Measured) ABG O2 Content ABG Base Excess Jim Test VBG pH POC VBG pCO2 POC VBG pO2 VBG HCO3 VBG O2 Sat (Merrill) VBG Base Excess O2 Delivery Device Oxygen Flow Rate Vent Mode Vent Rate Mechanical Rate Pressure Support Vent Sodium Potassium Chloride Carbon Dioxide Anion Gap BUN Creatinine Est GFR (CKD-EPI)AfAm Est GFR (CKD-EPI)NonAf POC Glucometer 136 123 Random Glucose Hemoglobin A1c % Lactic Acid Calcium Phosphorus Magnesium Total Bilirubin Direct Bilirubin AST ALT Alkaline Phosphatase Creatine Kinase Troponin I Total Protein Albumin Beta-Hydroxybutyrate TSH Serum , Qual Urine Color Urine Appearance Urine pH Ur Specific [place] Urine Protein Urine Glucose (UA) Urine Ketones Urine Blood Urine Nitrite Urine Bilirubin Urine Urobilinogen Ur Leukocyte Esterase Opiates Screen Methadone Screen Barbiturate Screen Phencyclidine Screen Ur Amphetamines Screen MDMA (Ecstasy) Screen Benzodiazepines Screen Cocaine Screen U Marijuana (THC) Screen HIV 1&2 Antibody Screen HIV P24 Antigen Problem List - Problems (1) Lactic acidosis Code(s): E87.2 - ACIDOSIS (2) Weakness Code(s): R53.1 - WEAKNESS (3) Constipation Code(s): K59.00 - CONSTIPATION, UNSPECIFIED (4) DKA (diabetic ketoacidoses) Code(s): E13.10 - OTH DIABETES MELLITUS WITH KETOACIDOSIS WITHOUT COMA (5) Dehydration Code(s): E86.0 - DEHYDRATION (6) Diabetes Code(s): E11.9 - TYPE 2 DIABETES MELLITUS WITHOUT COMPLICATIONS Qualifiers: Diabetes mellitus type: type 1 (7) Diabetic gastroparesis Code(s): E11.43 - TYPE 2 DIABETES W DIABETIC AUTONOMIC (POLY)NEUROPATHY; K31.84 - GASTROPARESIS (8) Insulin dependent diabetes mellitus Code(s): E11.9 - TYPE 2 DIABETES MELLITUS WITHOUT COMPLICATIONS; 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
[2019-09-24] MEDS: INSULIN SLIDING SCALE (NOVOLOG) 1 VIAL SQ SCH ×3 (12:13→22:57)
[2019-09-24 13:52] LABS: BLOOD UREA NITROGEN 3.8 mg/dL (7-18); CREATININE 0.5 mg/dL (0.55-1.3); POTASSIUM 3.7 mmol/L (3.5-5.1)
[2019-09-24] MEDS ORDERED: LABETALOL HCL 100 MG TABLET (FP) PO ONE (13:56)
--- NOTE | 2019-09-24 13:56 | PN ---
Physical Exam: SUBJECTIVE: Patient seen and examined. Pt vomited several times overnight. No fevers or chills. OBJECTIVE: Vital Signs Period Temp Pulse Resp BP Sys/Powell Pulse Ox Last 24 Hr 97.5 F-99.2 F 64-105 14-22 142-170/90-119 100-100 GENERAL: Lethatgic, but arousable to name. In no acute distress. HEAD: Normal with no signs of trauma. EYES: PERRL, extraocular movements intact, sclera anicteric, conjunctiva clear. No ptosis. ENT: Ears normal, nares patent, oropharynx clear without exudates, moist mucous membranes. NECK: Trachea midline, full range of motion, supple. LUNGS: Breath sounds equal, clear to auscultation bilaterally, no wheezes, no crackles, no accessory muscle use. HEART: Regular rate and rhythm, S1, S2 without murmur, rub or gallop. ABDOMEN: Soft, nontender, nondistended, normoactive bowel sounds, no guarding, no rebound, no hepatosplenomegaly, no masses. EXTREMITIES: 2+ pulses, warm, well-perfused, no edema. NEUROLOGICAL: Cranial nerves II through XII grossly intact. Normal speech, gait not observed. PSYCH: Normal mood, normal affect. SKIN: Warm, dry, normal turgor, no rashes or lesions noted Laboratory Results - last 24 hr CBC, BMP 09/24/19 05:00 Urine Test Results Urine Color Yellow 09/23/19 14:25 Urine Appearance Clear 09/23/19 14:25 Urine pH 5.0 (5.0-8.0) 09/23/19 14:25 Ur Specific [place] 1.036 (1.010-1.035) H 09/23/19 14:25 Urine Protein Negative (NEGATIVE) 09/23/19 14:25 Urine Glucose (UA) 3+ (NEGATIVE) H 09/23/19 14:25 Urine Ketones 1+ (NEGATIVE) H 09/23/19 14:25 Urine Blood Negative (NEGATIVE) 09/23/19 14:25 Urine Nitrite Negative (NEGATIVE) 09/23/19 14:25 Urine Bilirubin Negative (NEGATIVE) 09/23/19 14:25 Ur Leukocyte Esterase Negative (NEGATIVE) 09/23/19 14:25 Active Medications Albuterol Sulfate (Ventolin 0.083% Nebulizer Soln -) 1 amp NEB Q6H PRN PRN Reason: SHORT OF BREATH/WHEEZING Chlorhexidine Gluconate (Hibiclens For Decolonization -) 1 applic TP HS [facility] Last Admin: 09/23/19 23:08 Dose: 1 applic Heparin Sodium (Porcine) (Heparin -) 5,000 unit SQ TID [facility] Last Admin: 09/24/19 05:36 Dose: 5,000 unit Insulin Aspart (Novolog Vial Sliding Scale -) 1 vial SQ ACHS [facility]; Protocol Last Admin: 09/24/19 12:13 Dose: Not Given Insulin Detemir (Levemir Vial) 10 units SQ HS [facility] Insulin Detemir (Levemir Vial) 15 units SQ ACBK DREA Labetalol HCl (Normodyne -) 100 mg PO BID [facility] Last Admin: 09/24/19 13:14 Dose: Not Given Mupirocin (Bactroban Ointment (For Decolonization) -) 1 applic NS BID [facility] Stop: 09/28/19 21:59 Last Admin: 09/24/19 11:34 Dose: Not Given ASSESSMENT/PLAN: Patient is a 34 year old female with history of poorly controlled Type 1 Diabetes mellitus, gastroparesis, hypertension, was brought in by EMS after daughter found patient unresponsive today. #Acute metabolic encephalopathy likely 2/2 Hyperosmolar state Serum glucose 722 on presentation, beta hydroxybutyrate 14.1, UA positive for glucose and ketones Hgb A1C: 12.6 Lactic acid 6.5 --> 1.0 CXR, CT head, UA neg for acute pathology or infection Pt received insulin drip x 24 hours, transition to insulin SQ: 15units ACBK, 10units SQ, SSI BMP Q4H Neurochecks Q2H #LAYNE Cr: 1.4, likely pre-renal 2/2 dehydration Received IV boluses, fluids d/c'ed Cont to monitor renal function #Elevated T.bili T.bili 1.4 --> 0.9 Direct bili: 0.2 RUQ US: no acute pathology #Gastroparesis Currently NPO, pending mental status changes #HTN On labetalol 200mg prn at home (pt states she takes it when she feels her BP is high) Will give labetolol 100mg BID #FEN No fluids BMP Q4H, replete electrolytes prn Advance to diabetic/sodium diet #Prophylaxis Heparin 5000 SQ TID #Disposition Full code Monitor in ICU Visit type - Emergency Visit Emergency Visit: No - New Patient This patient is new to me today: No - Critical Care Critical Care patient: Yes Total Critical Care Time (in minutes): 45 Critical Care Statement: The care of this patient involved high complexity decision making to prevent further life threatening deterioration of the patient 's condition and/or to evaluate & treat vital organ system(s) failure or risk of failure. - Discharge Referral [facility]erred to [facility] No ATTENDING PHYSICIAN STATEMENT I saw and evaluated the patient. I reviewed the resident's note and discussed the case with the resident. I agree with the resident's findings and plan as documented. SUBJECTIVE: OBJECTIVE: ASSESSMENT AND PLAN:
--- NOTE | 2019-09-24 14:16 | CONSULT ---
Consultation: REQUESTING PROVIDER: CONSULT REQUEST: We have been asked to medically evaluate this patient for ( specify). HISTORY OF PRESENT ILLNESS: REVIEW OF SYSTEMS: CONSTITUTIONAL: Absent: fever, chills, diaphoresis, generalized weakness, malaise, loss of appetite, weight change HEENT: Absent: rhinorrhea, nasal congestion, throat pain, throat swelling, difficulty swallowing, mouth swelling, ear pain, eye pain, visual changes CARDIOVASCULAR: Absent: chest pain, syncope, palpitations, irregular heart rate, lightheadedness , peripheral edema RESPIRATORY: Absent: cough, shortness of breath, dyspnea with exertion, orthopnea, wheezing, stridor, hemoptysis GASTROINTESTINAL: Absent: abdominal pain, abdominal distension, nausea, vomiting, diarrhea, constipation, melena, hematochezia GENITOURINARY: Absent: dysuria, frequency, urgency, hesitancy, hematuria, flank pain, genital pain MUSCULOSKELETAL: Absent: myalgia, arthralgia, joint swelling, back pain, neck pain SKIN: Absent: rash, itching, pallor HEMATOLOGIC/IMMUNOLOGIC: Absent: easy bleeding, easy bruising, lymphadenopathy, frequent infections ENDOCRINE: Absent: unexplained weight gain, unexplained weight loss, heat intolerance, cold intolerance NEUROLOGIC: Absent: headache, focal weakness or paresthesias, dizziness, unsteady gait, seizure, mental status changes, bladder or bowel incontinence PSYCHIATRIC: Absent: anxiety, depression, suicidal or homicidal ideation, hallucinations. PHYSICAL EXAMINATION Vital Signs - 24 hr 09/23/19 09/23/19 09/23/19 14:31 14:34 15:12 Temperature 97.5 F L Pulse Rate 105 H Pulse Rate [ 98 H Apical] Respiratory 17 22 H Rate Blood Pressure 170/113 H Blood Pressure 155/100 [Right Arm] O2 Sat by Pulse 100 100 100 Oximetry (%) 09/23/19 09/23/19 09/23/19 15:13 15:42 17:49 Temperature 98.5 F Pulse Rate Pulse Rate [ 91 H 74 Apical] Respiratory 22 H 17 Rate Blood Pressure Blood Pressure 142/119 H 169/110 H [Right Arm] O2 Sat by Pulse 100 100 100 Oximetry (%) 09/23/19 09/23/19 09/23/19 20:12 21:00 22:00 Temperature 99.2 F 98.9 F Pulse Rate 69 71 Pulse Rate [ 74 Apical] Respiratory 20 18 21 H Rate Blood Pressure 152/100 157/103 H Blood Pressure 155/109 H [Right Arm] O2 Sat by Pulse 100 100 Oximetry (%) 09/23/19 09/24/19 09/24/19 23:00 00:00 01:00 Temperature 98.9 F 98.1 F Pulse Rate 72 68 71 Pulse Rate [ Apical] Respiratory 18 18 18 Rate Blood Pressure 142/90 165/94 160/103 H Blood Pressure [Right Arm] O2 Sat by Pulse Oximetry (%) 09/24/19 09/24/19 09/24/19 03:00 05:00 06:00 Temperature 98 F Pulse Rate 67 70 64 Pulse Rate [ Apical] Respiratory 14 15 18 Rate Blood Pressure 157/103 H 166/108 H 163/109 H Blood Pressure [Right Arm] O2 Sat by Pulse Oximetry (%) 09/24/19 09/24/19 09/24/19 07:00 09:00 11:00 Temperature 98.0 F Pulse Rate 64 65 67 Pulse Rate [ Apical] Respiratory 18 20 18 Rate Blood Pressure 164/104 H 168/109 H 166/108 H Blood Pressure [Right Arm] O2 Sat by Pulse Oximetry (%) GENERAL: Awake, alert, and fully oriented, in no acute distress. HEAD: Normal with no signs of trauma. EYES: Pupils equal, round and reactive to light, extraocular movements intact, sclera anicteric, conjunctiva clear. No lid lag. EARS, NOSE, THROAT: Ears normal, nares patent, oropharynx clear without exudates. Moist mucous membranes. NECK: Normal range of motion, supple without lymphadenopathy, JVD, or masses. LUNGS: Breath sounds equal, clear to auscultation bilaterally. No wheezes, and no crackles. No accessory muscle use. HEART: Regular rate and rhythm, normal S1 and S2 without murmur, rub or gallop. ABDOMEN: Soft, nontender, not distended, normoactive bowel sounds, no guarding, no rebound, no masses. No hepatomegaly or splenomegaly. MUSCULOSKELETAL: Normal range of motion at all joints. No bony deformities or tenderness. No CVA tenderness. UPPER EXTREMITIES: 2+ pulses, warm, well-perfused. No cyanosis. No clubbing. Cap refill <2 seconds. No peripheral edema. LOWER EXTREMITIES: 2+ pulses, warm, well-perfused. No calf tenderness. No peripheral edema. NEUROLOGICAL: Cranial nerves II-XII intact. Normal speech. Normal gait. PSYCHIATRIC: Cooperative. Good eye contact. Appropriate mood and affect. SKIN: Warm, dry, normal turgor, no rashes or lesions noted. Laboratory Results - last 24 hr 09/23/19 09/23/19 09/23/19 13:39 13:55 13:55 WBC RBC Hgb Hct MCV MCH MCHC RDW Plt Count MPV Absolute Neuts (auto) Neutrophils % Lymphocytes % Monocytes % Eosinophils % Basophils % Nucleated RBC % PT with INR INR PTT (Actin FS) Anticoagulation Therapy Puncture Site ABG pH ABG pCO2 at Pt Temp ABG pO2 at Pt Temp ABG HCO3 ABG O2 Sat (Measured) ABG O2 Content ABG Base Excess Jim Test VBG pH POC VBG pCO2 POC VBG pO2 VBG HCO3 VBG O2 Sat (Merrill) VBG Base Excess O2 Delivery Device Oxygen Flow Rate Vent Mode Vent Rate Mechanical Rate Pressure Support Vent Sodium 124 L Potassium 3.9 Chloride 83 L Carbon Dioxide 26 Anion Gap 15 BUN 15.9 Creatinine 1.4 H Est GFR (CKD-EPI)AfAm 55.88 Est GFR (CKD-EPI)NonAf 48.22 POC Glucometer > 600 Random Glucose 722 H* Hemoglobin A1c % Lactic Acid Calcium 10.1 Phosphorus 4.5 Magnesium 2.7 H Total Bilirubin 1.4 H Direct Bilirubin AST 27 ALT 40 Alkaline Phosphatase 169 H Creatine Kinase 81 Troponin I < 0.02 Total Protein 9.1 H Albumin 4.9 Beta-Hydroxybutyrate 14.1 H TSH Serum , Qual Urine Color Urine Appearance Urine pH Ur Specific Reeders Urine Protein Urine Glucose (UA) Urine Ketones Urine Blood Urine Nitrite Urine Bilirubin Urine Urobilinogen Ur Leukocyte Esterase Opiates Screen Methadone Screen Barbiturate Screen Phencyclidine Screen Ur Amphetamines Screen MDMA (Ecstasy) Screen Benzodiazepines Screen Cocaine Screen U Marijuana (THC) Screen HIV 1&2 Antibody Screen HIV P24 Antigen 09/23/19 09/23/19 09/23/19 13:55 13:55 14:00 WBC RBC Hgb Hct MCV MCH MCHC RDW Plt Count MPV Absolute Neuts (auto) Neutrophils % Lymphocytes % Monocytes % Eosinophils % Basophils % Nucleated RBC % PT with INR 10.90 INR 0.92 PTT (Actin FS) 26.8 Anticoagulation Therapy Puncture Site ABG pH ABG pCO2 at Pt Temp ABG pO2 at Pt Temp ABG HCO3 ABG O2 Sat (Measured) ABG O2 Content ABG Base Excess Jim Test VBG pH 7.42 H POC VBG pCO2 41 POC VBG pO2 97.9 H VBG HCO3 25.8 VBG O2 Sat (Merrill) 97.5 H VBG Base Excess 1.6 O2 Delivery Device Oxygen Flow Rate Vent Mode Vent Rate Mechanical Rate Pressure Support Vent Sodium Potassium Chloride Carbon Dioxide Anion Gap BUN Creatinine Est GFR (CKD-EPI)AfAm Est GFR (CKD-EPI)NonAf POC Glucometer Random Glucose Hemoglobin A1c % Lactic Acid Calcium Phosphorus Magnesium Total Bilirubin Direct Bilirubin AST ALT Alkaline Phosphatase Creatine Kinase Troponin I Total Protein Albumin Beta-Hydroxybutyrate TSH Serum , Qual Negative Urine Color Urine Appearance Urine pH Ur Specific Reeders Urine Protein Urine Glucose (UA) Urine Ketones Urine Blood Urine Nitrite Urine Bilirubin Urine Urobilinogen Ur Leukocyte Esterase Opiates Screen Methadone Screen Barbiturate Screen Phencyclidine Screen Ur Amphetamines Screen MDMA (Ecstasy) Screen Benzodiazepines Screen Cocaine Screen U Marijuana (THC) Screen HIV 1&2 Antibody Screen HIV P24 Antigen 09/23/19 09/23/19 09/23/19 14:15 14:25 14:55 WBC RBC Hgb Hct MCV MCH MCHC RDW Plt Count MPV Absolute Neuts (auto) Neutrophils % Lymphocytes % Monocytes % Eosinophils % Basophils % Nucleated RBC % PT with INR INR PTT (Actin FS) Anticoagulation Therapy Puncture Site ABG pH ABG pCO2 at Pt Temp ABG pO2 at Pt Temp ABG HCO3 ABG O2 Sat (Measured) ABG O2 Content ABG Base Excess Jim Test VBG pH POC VBG pCO2 POC VBG pO2 VBG HCO3 VBG O2 Sat (Merrill) VBG Base Excess O2 Delivery Device Oxygen Flow Rate Vent Mode Vent Rate Mechanical Rate Pressure Support Vent Sodium Potassium Chloride Carbon Dioxide Anion Gap BUN Creatinine Est GFR (CKD-EPI)AfAm Est GFR (CKD-EPI)NonAf POC Glucometer Random Glucose Hemoglobin A1c % Lactic Acid 6.5 H* Calcium Phosphorus Magnesium Total Bilirubin Direct Bilirubin AST ALT Alkaline Phosphatase Creatine Kinase Troponin I Total Protein Albumin Beta-Hydroxybutyrate TSH Serum , Qual Urine Color Yellow Urine Appearance Clear Urine pH 5.0 Ur Specific Reeders 1.036 H Urine Protein Negative Urine Glucose (UA) 3+ H Urine Ketones 1+ H Urine Blood Negative Urine Nitrite Negative Urine Bilirubin Negative Urine Urobilinogen 0.2 Ur Leukocyte Esterase Negative Opiates Screen Negative Methadone Screen Negative Barbiturate Screen Negative Phencyclidine Screen Negative Ur Amphetamines Screen Negative MDMA (Ecstasy) Screen Negative Benzodiazepines Screen Negative Cocaine Screen Negative U Marijuana (THC) Screen Positive A* HIV 1&2 Antibody Screen HIV P24 Antigen 09/23/19 09/23/19 09/23/19 15:21 16:33 16:33 WBC RBC Hgb Hct MCV MCH MCHC RDW Plt Count MPV Absolute Neuts (auto) Neutrophils % Lymphocytes % Monocytes % Eosinophils % Basophils % Nucleated RBC % PT with INR INR PTT (Actin FS) Anticoagulation Therapy Puncture Site ABG pH ABG pCO2 at Pt Temp ABG pO2 at Pt Temp ABG HCO3 ABG O2 Sat (Measured) ABG O2 Content ABG Base Excess Jim Test VBG pH POC VBG pCO2 POC VBG pO2 VBG HCO3 VBG O2 Sat (Merrill) VBG Base Excess O2 Delivery Device Oxygen Flow Rate Vent Mode Vent Rate Mechanical Rate Pressure Support Vent Sodium 133 L Potassium 3.3 L Chloride 92 L Carbon Dioxide 29 Anion Gap 12 BUN 13.4 Creatinine 1.1 Est GFR (CKD-EPI)AfAm 74.80 Est GFR (CKD-EPI)NonAf 64.54 POC Glucometer 589 Random Glucose 391 H Hemoglobin A1c % Lactic Acid 5.2 H* Calcium 9.5 Phosphorus Magnesium Total Bilirubin 1.0 Direct Bilirubin AST 13 L ALT 37 Alkaline Phosphatase 157 H Creatine Kinase Troponin I Total Protein 8.4 H Albumin 4.5 Beta-Hydroxybutyrate TSH Serum , Qual Urine Color Urine Appearance Urine pH Ur Specific Reeders Urine Protein Urine Glucose (UA) Urine Ketones Urine Blood Urine Nitrite Urine Bilirubin Urine Urobilinogen Ur Leukocyte Esterase Opiates Screen Methadone Screen Barbiturate Screen Phencyclidine Screen Ur Amphetamines Screen MDMA (Ecstasy) Screen Benzodiazepines Screen Cocaine Screen U Marijuana (THC) Screen HIV 1&2 Antibody Screen HIV P24 Antigen 09/23/19 09/23/19 09/23/19 16:33 16:52 17:00 WBC RBC Hgb Hct MCV MCH MCHC RDW Plt Count MPV Absolute Neuts (auto) Neutrophils % Lymphocytes % Monocytes % Eosinophils % Basophils % Nucleated RBC % PT with INR INR PTT (Actin FS) Anticoagulation Therapy No Result Required. Puncture Site Right radial ABG pH 7.43 ABG pCO2 at Pt Temp 41.9 ABG pO2 at Pt Temp 117 H ABG HCO3 27.2 H ABG O2 Sat (Measured) 98.5 H ABG O2 Content 17.7 ABG Base Excess 3.0 H Jim Test Positive VBG pH 7.36 POC VBG pCO2 54.3 H POC VBG pO2 < 49 H VBG HCO3 30.1 H VBG O2 Sat (Merrill) 52.4 L VBG Base Excess 3.7 H O2 Delivery Device Room air Oxygen Flow Rate Yes Vent Mode No Result Required. Vent Rate No Result Required. Mechanical Rate No Result Required. Pressure Support Vent No Result Required. Sodium Potassium Chloride Carbon Dioxide Anion Gap BUN Creatinine Est GFR (CKD-EPI)AfAm Est GFR (CKD-EPI)NonAf POC Glucometer 441 Random Glucose Hemoglobin A1c % Lactic Acid Calcium Phosphorus Magnesium Total Bilirubin Direct Bilirubin AST ALT Alkaline Phosphatase Creatine Kinase Troponin I Total Protein Albumin Beta-Hydroxybutyrate TSH Serum , Qual Urine Color Urine Appearance Urine pH Ur Specific Reeders Urine Protein Urine Glucose (UA) Urine Ketones Urine Blood Urine Nitrite Urine Bilirubin Urine Urobilinogen Ur Leukocyte Esterase Opiates Screen Methadone Screen Barbiturate Screen Phencyclidine Screen Ur Amphetamines Screen MDMA (Ecstasy) Screen Benzodiazepines Screen Cocaine Screen U Marijuana (THC) Screen HIV 1&2 Antibody Screen HIV P24 Antigen 09/23/19 09/23/19 09/23/19 17:55 19:40 20:56 WBC RBC Hgb Hct MCV MCH MCHC RDW Plt Count MPV Absolute Neuts (auto) Neutrophils % Lymphocytes % Monocytes % Eosinophils % Basophils % Nucleated RBC % PT with INR INR PTT (Actin FS) Anticoagulation Therapy Puncture Site ABG pH ABG pCO2 at Pt Temp ABG pO2 at Pt Temp ABG HCO3 ABG O2 Sat (Measured) ABG O2 Content ABG Base Excess Jim Test VBG pH POC VBG pCO2 POC VBG pO2 VBG HCO3 VBG O2 Sat (Merrill) VBG Base Excess O2 Delivery Device Oxygen Flow Rate Vent Mode Vent Rate Mechanical Rate Pressure Support Vent Sodium 136 Potassium 3.7 Chloride 99 Carbon Dioxide 27 Anion Gap 11 BUN 10.5 Creatinine 0.9 Est GFR (CKD-EPI)AfAm 95.34 Est GFR (CKD-EPI)NonAf 82.26 POC Glucometer 297 210 Random Glucose 270 H Hemoglobin A1c % Lactic Acid Calcium 8.1 L Phosphorus Magnesium Total Bilirubin Direct Bilirubin AST ALT Alkaline Phosphatase Creatine Kinase Troponin I Total Protein Albumin Beta-Hydroxybutyrate TSH Serum , Qual Urine Color Urine Appearance Urine pH Ur Specific Reeders Urine Protein Urine Glucose (UA) Urine Ketones Urine Blood Urine Nitrite Urine Bilirubin Urine Urobilinogen Ur Leukocyte Esterase Opiates Screen Methadone Screen Barbiturate Screen Phencyclidine Screen Ur Amphetamines Screen MDMA (Ecstasy) Screen Benzodiazepines Screen Cocaine Screen U Marijuana (THC) Screen HIV 1&2 Antibody Screen HIV P24 Antigen 09/23/19 09/24/19 09/24/19 23:27 00:22 01:29 WBC RBC Hgb Hct MCV MCH MCHC RDW Plt Count MPV Absolute Neuts (auto) Neutrophils % Lymphocytes % Monocytes % Eosinophils % Basophils % Nucleated RBC % PT with INR INR PTT (Actin FS) Anticoagulation Therapy Puncture Site ABG pH ABG pCO2 at Pt Temp ABG pO2 at Pt Temp ABG HCO3 ABG O2 Sat (Measured) ABG O2 Content ABG Base Excess Jim Test VBG pH POC VBG pCO2 POC VBG pO2 VBG HCO3 VBG O2 Sat (Merrill) VBG Base Excess O2 Delivery Device Oxygen Flow Rate Vent Mode Vent Rate Mechanical Rate Pressure Support Vent Sodium Potassium Chloride Carbon Dioxide Anion Gap BUN Creatinine Est GFR (CKD-EPI)AfAm Est GFR (CKD-EPI)NonAf POC Glucometer 299 276 191 Random Glucose Hemoglobin A1c % Lactic Acid Calcium Phosphorus Magnesium Total Bilirubin Direct Bilirubin AST ALT Alkaline Phosphatase Creatine Kinase Troponin I Total Protein Albumin Beta-Hydroxybutyrate TSH Serum , Qual Urine Color Urine Appearance Urine pH Ur Specific Reeders Urine Protein Urine Glucose (UA) Urine Ketones Urine Blood Urine Nitrite Urine Bilirubin Urine Urobilinogen Ur Leukocyte Esterase Opiates Screen Methadone Screen Barbiturate Screen Phencyclidine Screen Ur Amphetamines Screen MDMA (Ecstasy) Screen Benzodiazepines Screen Cocaine Screen U Marijuana (THC) Screen HIV 1&2 Antibody Screen HIV P24 Antigen 09/24/19 09/24/19 09/24/19 02:31 02:50 03:25 WBC RBC Hgb Hct MCV MCH MCHC RDW Plt Count MPV Absolute Neuts (auto) Neutrophils % Lymphocytes % Monocytes % Eosinophils % Basophils % Nucleated RBC % PT with INR INR PTT (Actin FS) Anticoagulation Therapy Puncture Site ABG pH ABG pCO2 at Pt Temp ABG pO2 at Pt Temp ABG HCO3 ABG O2 Sat (Measured) ABG O2 Content ABG Base Excess Jim Test VBG pH POC VBG pCO2 POC VBG pO2 VBG HCO3 VBG O2 Sat (Merrill) VBG Base Excess O2 Delivery Device Oxygen Flow Rate Vent Mode Vent Rate Mechanical Rate Pressure Support Vent Sodium 137 Potassium 3.4 L Chloride 103 Carbon Dioxide 29 Anion Gap 6 L BUN 6.9 L Creatinine 0.6 Est GFR (CKD-EPI)AfAm 135.91 Est GFR (CKD-EPI)NonAf 117.26 POC Glucometer 113 125 Random Glucose 139 H Hemoglobin A1c % Lactic Acid Calcium 7.8 L Phosphorus Magnesium Total Bilirubin Direct Bilirubin AST ALT Alkaline Phosphatase Creatine Kinase Troponin I Total Protein Albumin Beta-Hydroxybutyrate TSH Serum , Qual Urine Color Urine Appearance Urine pH Ur Specific Reeders Urine Protein Urine Glucose (UA) Urine Ketones Urine Blood Urine Nitrite Urine Bilirubin Urine Urobilinogen Ur Leukocyte Esterase Opiates Screen Methadone Screen Barbiturate Screen Phencyclidine Screen Ur Amphetamines Screen MDMA (Ecstasy) Screen Benzodiazepines Screen Cocaine Screen U Marijuana (THC) Screen HIV 1&2 Antibody Screen HIV P24 Antigen 09/24/19 09/24/19 09/24/19 04:28 05:00 05:00 WBC 8.4 RBC 3.99 Hgb 11.6 Hct 33.4 D MCV 83.7 MCH 29.0 MCHC 34.7 RDW 13.7 Plt Count 253 D MPV 9.4 Absolute Neuts (auto) 5.9 Neutrophils % 69.8 Lymphocytes % 22.4 D Monocytes % 7.0 Eosinophils % 0.4 D Basophils % 0.4 Nucleated RBC % 0 PT with INR INR PTT (Actin FS) Anticoagulation Therapy Puncture Site ABG pH ABG pCO2 at Pt Temp ABG pO2 at Pt Temp ABG HCO3 ABG O2 Sat (Measured) ABG O2 Content ABG Base Excess Jim Test VBG pH POC VBG pCO2 POC VBG pO2 VBG HCO3 VBG O2 Sat (Merrill) VBG Base Excess O2 Delivery Device Oxygen Flow Rate Vent Mode Vent Rate Mechanical Rate Pressure Support Vent Sodium 135 L Potassium 3.5 Chloride 100 Carbon Dioxide 28 Anion Gap 6 L BUN 5.7 L Creatinine 0.4 L Est GFR (CKD-EPI)AfAm 155.30 Est GFR (CKD-EPI)NonAf 134.00 POC Glucometer 116 Random Glucose 121 H Hemoglobin A1c % Lactic Acid Calcium 7.9 L Phosphorus Magnesium 1.7 L Total Bilirubin 0.9 Direct Bilirubin 0.2 AST 17 ALT 25 Alkaline Phosphatase 99 Creatine Kinase Troponin I Total Protein 5.8 L Albumin 3.1 L Beta-Hydroxybutyrate TSH 0.13 L Serum , Qual Urine Color Urine Appearance Urine pH Ur Specific Reeders Urine Protein Urine Glucose (UA) Urine Ketones Urine Blood Urine Nitrite Urine Bilirubin Urine Urobilinogen Ur Leukocyte Esterase Opiates Screen Methadone Screen Barbiturate Screen Phencyclidine Screen Ur Amphetamines Screen MDMA (Ecstasy) Screen Benzodiazepines Screen Cocaine Screen U Marijuana (THC) Screen HIV 1&2 Antibody Screen HIV P24 Antigen 09/24/19 09/24/19 09/24/19 05:00 05:00 05:16 WBC RBC Hgb Hct MCV MCH MCHC RDW Plt Count MPV Absolute Neuts (auto) Neutrophils % Lymphocytes % Monocytes % Eosinophils % Basophils % Nucleated RBC % PT with INR INR PTT (Actin FS) Anticoagulation Therapy Puncture Site ABG pH ABG pCO2 at Pt Temp ABG pO2 at Pt Temp ABG HCO3 ABG O2 Sat (Measured) ABG O2 Content ABG Base Excess Jmi Test VBG pH POC VBG pCO2 POC VBG pO2 VBG HCO3 VBG O2 Sat (Merrill) VBG Base Excess O2 Delivery Device Oxygen Flow Rate Vent Mode Vent Rate Mechanical Rate Pressure Support Vent Sodium Potassium Chloride Carbon Dioxide Anion Gap BUN Creatinine Est GFR (CKD-EPI)AfAm Est GFR (CKD-EPI)NonAf POC Glucometer 116 Random Glucose Hemoglobin A1c % 12.6 H Lactic Acid Calcium Phosphorus Magnesium Total Bilirubin Direct Bilirubin AST ALT Alkaline Phosphatase Creatine Kinase Troponin I Total Protein Albumin Beta-Hydroxybutyrate TSH Serum , Qual Urine Color Urine Appearance Urine pH Ur Specific Reeders Urine Protein Urine Glucose (UA) Urine Ketones Urine Blood Urine Nitrite Urine Bilirubin Urine Urobilinogen Ur Leukocyte Esterase Opiates Screen Methadone Screen Barbiturate Screen Phencyclidine Screen Ur Amphetamines Screen MDMA (Ecstasy) Screen Benzodiazepines Screen Cocaine Screen U Marijuana (THC) Screen HIV 1&2 Antibody Screen Negative HIV P24 Antigen Negative 09/24/19 09/24/19 09/24/19 06:20 07:25 08:21 WBC RBC Hgb Hct MCV MCH MCHC RDW Plt Count MPV Absolute Neuts (auto) Neutrophils % Lymphocytes % Monocytes % Eosinophils % Basophils % Nucleated RBC % PT with INR INR PTT (Actin FS) Anticoagulation Therapy Puncture Site ABG pH ABG pCO2 at Pt Temp ABG pO2 at Pt Temp ABG HCO3 ABG O2 Sat (Measured) ABG O2 Content ABG Base Excess Jim Test VBG pH POC VBG pCO2 POC VBG pO2 VBG HCO3 VBG O2 Sat (Merrill) VBG Base Excess O2 Delivery Device Oxygen Flow Rate Vent Mode Vent Rate Mechanical Rate Pressure Support Vent Sodium Potassium Chloride Carbon Dioxide Anion Gap BUN Creatinine Est GFR (CKD-EPI)AfAm Est GFR (CKD-EPI)NonAf POC Glucometer 117 120 123 Random Glucose Hemoglobin A1c % Lactic Acid Calcium Phosphorus Magnesium Total Bilirubin Direct Bilirubin AST ALT Alkaline Phosphatase Creatine Kinase Troponin I Total Protein Albumin Beta-Hydroxybutyrate TSH Serum , Qual Urine Color Urine Appearance Urine pH Ur Specific Reeders Urine Protein Urine Glucose (UA) Urine Ketones Urine Blood Urine Nitrite Urine Bilirubin Urine Urobilinogen Ur Leukocyte Esterase Opiates Screen Methadone Screen Barbiturate Screen Phencyclidine Screen Ur Amphetamines Screen MDMA (Ecstasy) Screen Benzodiazepines Screen Cocaine Screen U Marijuana (THC) Screen HIV 1&2 Antibody Screen HIV P24 Antigen 09/24/19 09/24/19 09/24/19 09:22 10:21 10:33 WBC RBC Hgb Hct MCV MCH MCHC RDW Plt Count MPV Absolute Neuts (auto) Neutrophils % Lymphocytes % Monocytes % Eosinophils % Basophils % Nucleated RBC % PT with INR INR PTT (Actin FS) Anticoagulation Therapy Puncture Site ABG pH ABG pCO2 at Pt Temp ABG pO2 at Pt Temp ABG HCO3 ABG O2 Sat (Measured) ABG O2 Content ABG Base Excess Jim Test VBG pH POC VBG pCO2 POC VBG pO2 VBG HCO3 VBG O2 Sat (Merrill) VBG Base Excess O2 Delivery Device Oxygen Flow Rate Vent Mode Vent Rate Mechanical Rate Pressure Support Vent Sodium Potassium Chloride Carbon Dioxide Anion Gap BUN Creatinine Est GFR (CKD-EPI)AfAm Est GFR (CKD-EPI)NonAf POC Glucometer 156 136 Random Glucose Hemoglobin A1c % Lactic Acid 1.0 Calcium Phosphorus Magnesium Total Bilirubin Direct Bilirubin AST ALT Alkaline Phosphatase Creatine Kinase Troponin I Total Protein Albumin Beta-Hydroxybutyrate TSH Serum , Qual Urine Color Urine Appearance Urine pH Ur Specific Reeders Urine Protein Urine Glucose (UA) Urine Ketones Urine Blood Urine Nitrite Urine Bilirubin Urine Urobilinogen Ur Leukocyte Esterase Opiates Screen Methadone Screen Barbiturate Screen Phencyclidine Screen Ur Amphetamines Screen MDMA (Ecstasy) Screen Benzodiazepines Screen Cocaine Screen U Marijuana (THC) Screen HIV 1&2 Antibody Screen HIV P24 Antigen 09/24/19 09/24/19 09/24/19 11:24 13:08 14:14 WBC RBC Hgb Hct MCV MCH MCHC RDW Plt Count MPV Absolute Neuts (auto) Neutrophils % Lymphocytes % Monocytes % Eosinophils % Basophils % Nucleated RBC % PT with INR INR PTT (Actin FS) Anticoagulation Therapy Puncture Site ABG pH ABG pCO2 at Pt Temp ABG pO2 at Pt Temp ABG HCO3 ABG O2 Sat (Measured) ABG O2 Content ABG Base Excess Jim Test VBG pH POC VBG pCO2 POC VBG pO2 VBG HCO3 VBG O2 Sat (Merrill) VBG Base Excess O2 Delivery Device Oxygen Flow Rate Vent Mode Vent Rate Mechanical Rate Pressure Support Vent Sodium 131 L Potassium 3.7 Chloride 98 Carbon Dioxide 26 Anion Gap 8 BUN 3.8 L Creatinine 0.5 L Est GFR (CKD-EPI)AfAm 144.31 Est GFR (CKD-EPI)NonAf 124.51 POC Glucometer 123 259 Random Glucose 248 H Hemoglobin A1c % Lactic Acid Calcium 8.0 L Phosphorus Magnesium Total Bilirubin Direct Bilirubin AST ALT Alkaline Phosphatase Creatine Kinase Troponin I Total Protein Albumin Beta-Hydroxybutyrate TSH Serum , Qual Urine Color Urine Appearance Urine pH Ur Specific Reeders Urine Protein Urine Glucose (UA) Urine Ketones Urine Blood Urine Nitrite Urine Bilirubin Urine Urobilinogen Ur Leukocyte Esterase Opiates Screen Methadone Screen Barbiturate Screen Phencyclidine Screen Ur Amphetamines Screen MDMA (Ecstasy) Screen Benzodiazepines Screen Cocaine Screen U Marijuana (THC) Screen HIV 1&2 Antibody Screen HIV P24 Antigen Active Medications Generic Name Dose Route Start Last Admin Trade Name Freq PRN Reason Stop Dose Admin Albuterol Sulfate 1 amp 09/23/19 23:20 Ventolin 0.083% Nebulizer Soln - NEB Q6H PRN SHORT OF BREATH/WHEEZING Chlorhexidine Gluconate 1 applic 09/23/19 22:00 09/23/19 23:08 Hibiclens For Decolonization - TP 1 applic HS [facility] Administration Heparin Sodium (Porcine) 5,000 unit 09/23/19 22:00 09/24/19 14:02 Heparin - SQ 5,000 unit TID [facility] Administration Insulin Aspart 1 vial 09/24/19 11:49 09/24/19 12:13 Novolog Vial Sliding Scale - SQ Not Given ACHS [facility] Protocol Insulin Detemir 10 units 09/24/19 22:00 Levemir Vial SQ HS [facility] Insulin Detemir 15 units 09/25/19 07:00 Levemir Vial SQ ACBK [facility] Labetalol HCl 100 mg 09/24/19 11:45 Normodyne - PO BID DREA Mupirocin 1 applic 09/23/19 22:00 09/24/19 11:34 Bactroban Ointment (For Decolonization) - NS 09/28/19 21:59 Not Given BID [facility] ASSESSMENT/PLAN: Patient is a 34 year old female with history of poorly controlled Type 1 Diabetes mellitus, gastroparesis, hypertension, was brought in by EMS after daughter found patient unresponsive today. #Acute metabolic encephalopathy likely 2/2 Hyperosmolar state Serum glucose 722 on presentation, beta hydroxybutyrate 14.1, UA positive for glucose and ketones Hgb A1C: 12.6 Lactic acid 6.5 --> 1.0 CXR, CT head, UA neg for acute pathology or infection Pt received insulin drip x 24 hours, transition to insulin SQ BMP Q4H Neurochecks Q2H Keep NPO given poor mental status #LAYNE Cr: 1.4, likely pre-renal 2/2 dehydration Received IV bolus, now on Cont to monitor renal function #Elevated T.bili T.bili 1.4 --> 0.9 Direct bili: 0.2 RUQ US: no acute pathology #Gastroparesis Currently NPO, pending mental status changes #HTN On labetalol 200mg prn at home (pt states she takes it when she feels her BP is high) Will give labetolol 100mg BID #FEN BMP Q4H, replete electrolytes prn Advance to diabetic/sodium diet #Prophylaxis Heparin 5000 SQ TID #Disposition Full code Monitor in ICU ATTENDING PHYSICIAN STATEMENT I saw and evaluated the patient. I reviewed the resident's note and discussed the case with the resident. I agree with the resident's findings and plan as documented. SUBJECTIVE: OBJECTIVE: ASSESSMENT AND PLAN:
--- NOTE | 2019-09-24 14:17 | PN ---
Physical Exam: SUBJECTIVE: Patient seen and examined. Complains of mild nausea. Denies chest pain, SOB. OBJECTIVE: Vital Signs Period Temp Pulse Resp BP Sys/Powell Pulse Ox Last 24 Hr 97.5 F-99.2 F 64-105 14-22 142-170/90-119 100-100 GENERAL: The patient is sleepy, in no acute distress. LUNGS: Breath sounds equal, clear to auscultation bilaterally, no wheezes, no crackles, no accessory muscle use. HEART: Regular rate and rhythm, S1, S2 without murmur, rub or gallop. ABDOMEN: Soft, nontender, nondistended, normoactive bowel sounds, no guarding, no rebound, no hepatosplenomegaly, no masses. EXTREMITIES: warm, well-perfused, no edema. NEUROLOGICAL: AOx3. Normal speech Laboratory Results - last 24 hr 09/23/19 09/23/19 09/23/19 13:39 13:55 13:55 WBC RBC Hgb Hct MCV MCH MCHC RDW Plt Count MPV Absolute Neuts (auto) Neutrophils % Lymphocytes % Monocytes % Eosinophils % Basophils % Nucleated RBC % PT with INR INR PTT (Actin FS) Anticoagulation Therapy Puncture Site ABG pH ABG pCO2 at Pt Temp ABG pO2 at Pt Temp ABG HCO3 ABG O2 Sat (Measured) ABG O2 Content ABG Base Excess Jim Test VBG pH POC VBG pCO2 POC VBG pO2 VBG HCO3 VBG O2 Sat (Merrill) VBG Base Excess O2 Delivery Device Oxygen Flow Rate Vent Mode Vent Rate Mechanical Rate Pressure Support Vent Sodium 124 L Potassium 3.9 Chloride 83 L Carbon Dioxide 26 Anion Gap 15 BUN 15.9 Creatinine 1.4 H Est GFR (CKD-EPI)AfAm 55.88 Est GFR (CKD-EPI)NonAf 48.22 POC Glucometer > 600 Random Glucose 722 H* Hemoglobin A1c % Lactic Acid Calcium 10.1 Phosphorus 4.5 Magnesium 2.7 H Total Bilirubin 1.4 H Direct Bilirubin AST 27 ALT 40 Alkaline Phosphatase 169 H Creatine Kinase 81 Troponin I < 0.02 Total Protein 9.1 H Albumin 4.9 Beta-Hydroxybutyrate 14.1 H TSH Serum , Qual Urine Color Urine Appearance Urine pH Ur Specific [place] Urine Protein Urine Glucose (UA) Urine Ketones Urine Blood Urine Nitrite Urine Bilirubin Urine Urobilinogen Ur Leukocyte Esterase Opiates Screen Methadone Screen Barbiturate Screen Phencyclidine Screen Ur Amphetamines Screen MDMA (Ecstasy) Screen Benzodiazepines Screen Cocaine Screen U Marijuana (THC) Screen HIV 1&2 Antibody Screen HIV P24 Antigen 09/23/19 09/23/19 09/23/19 13:55 13:55 14:00 WBC RBC Hgb Hct MCV MCH MCHC RDW Plt Count MPV Absolute Neuts (auto) Neutrophils % Lymphocytes % Monocytes % Eosinophils % Basophils % Nucleated RBC % PT with INR 10.90 INR 0.92 PTT (Actin FS) 26.8 Anticoagulation Therapy Puncture Site ABG pH ABG pCO2 at Pt Temp ABG pO2 at Pt Temp ABG HCO3 ABG O2 Sat (Measured) ABG O2 Content ABG Base Excess Jim Test VBG pH 7.42 H POC VBG pCO2 41 POC VBG pO2 97.9 H VBG HCO3 25.8 VBG O2 Sat (Merrill) 97.5 H VBG Base Excess 1.6 O2 Delivery Device Oxygen Flow Rate Vent Mode Vent Rate Mechanical Rate Pressure Support Vent Sodium Potassium Chloride Carbon Dioxide Anion Gap BUN Creatinine Est GFR (CKD-EPI)AfAm Est GFR (CKD-EPI)NonAf POC Glucometer Random Glucose Hemoglobin A1c % Lactic Acid Calcium Phosphorus Magnesium Total Bilirubin Direct Bilirubin AST ALT Alkaline Phosphatase Creatine Kinase Troponin I Total Protein Albumin Beta-Hydroxybutyrate TSH Serum , Qual Negative Urine Color Urine Appearance Urine pH Ur Specific [place] Urine Protein Urine Glucose (UA) Urine Ketones Urine Blood Urine Nitrite Urine Bilirubin Urine Urobilinogen Ur Leukocyte Esterase Opiates Screen Methadone Screen Barbiturate Screen Phencyclidine Screen Ur Amphetamines Screen MDMA (Ecstasy) Screen Benzodiazepines Screen Cocaine Screen U Marijuana (THC) Screen HIV 1&2 Antibody Screen HIV P24 Antigen 09/23/19 09/23/19 09/23/19 14:15 14:25 14:55 WBC RBC Hgb Hct MCV MCH MCHC RDW Plt Count MPV Absolute Neuts (auto) Neutrophils % Lymphocytes % Monocytes % Eosinophils % Basophils % Nucleated RBC % PT with INR INR PTT (Actin FS) Anticoagulation Therapy Puncture Site ABG pH ABG pCO2 at Pt Temp ABG pO2 at Pt Temp ABG HCO3 ABG O2 Sat (Measured) ABG O2 Content ABG Base Excess Jim Test VBG pH POC VBG pCO2 POC VBG pO2 VBG HCO3 VBG O2 Sat (Merrill) VBG Base Excess O2 Delivery Device Oxygen Flow Rate Vent Mode Vent Rate Mechanical Rate Pressure Support Vent Sodium Potassium Chloride Carbon Dioxide Anion Gap BUN Creatinine Est GFR (CKD-EPI)AfAm Est GFR (CKD-EPI)NonAf POC Glucometer Random Glucose Hemoglobin A1c % Lactic Acid 6.5 H* Calcium Phosphorus Magnesium Total Bilirubin Direct Bilirubin AST ALT Alkaline Phosphatase Creatine Kinase Troponin I Total Protein Albumin Beta-Hydroxybutyrate TSH Serum , Qual Urine Color Yellow Urine Appearance Clear Urine pH 5.0 Ur Specific [place] 1.036 H Urine Protein Negative Urine Glucose (UA) 3+ H Urine Ketones 1+ H Urine Blood Negative Urine Nitrite Negative Urine Bilirubin Negative Urine Urobilinogen 0.2 Ur Leukocyte Esterase Negative Opiates Screen Negative Methadone Screen Negative Barbiturate Screen Negative Phencyclidine Screen Negative Ur Amphetamines Screen Negative MDMA (Ecstasy) Screen Negative Benzodiazepines Screen Negative Cocaine Screen Negative U Marijuana (THC) Screen Positive A* HIV 1&2 Antibody Screen HIV P24 Antigen 09/23/19 09/23/19 09/23/19 15:21 16:33 16:33 WBC RBC Hgb Hct MCV MCH MCHC RDW Plt Count MPV Absolute Neuts (auto) Neutrophils % Lymphocytes % Monocytes % Eosinophils % Basophils % Nucleated RBC % PT with INR INR PTT (Actin FS) Anticoagulation Therapy Puncture Site ABG pH ABG pCO2 at Pt Temp ABG pO2 at Pt Temp ABG HCO3 ABG O2 Sat (Measured) ABG O2 Content ABG Base Excess Jim Test VBG pH POC VBG pCO2 POC VBG pO2 VBG HCO3 VBG O2 Sat (Merrill) VBG Base Excess O2 Delivery Device Oxygen Flow Rate Vent Mode Vent Rate Mechanical Rate Pressure Support Vent Sodium 133 L Potassium 3.3 L Chloride 92 L Carbon Dioxide 29 Anion Gap 12 BUN 13.4 Creatinine 1.1 Est GFR (CKD-EPI)AfAm 74.80 Est GFR (CKD-EPI)NonAf 64.54 POC Glucometer 589 Random Glucose 391 H Hemoglobin A1c % Lactic Acid 5.2 H* Calcium 9.5 Phosphorus Magnesium Total Bilirubin 1.0 Direct Bilirubin AST 13 L ALT 37 Alkaline Phosphatase 157 H Creatine Kinase Troponin I Total Protein 8.4 H Albumin 4.5 Beta-Hydroxybutyrate TSH Serum , Qual Urine Color Urine Appearance Urine pH Ur Specific [place] Urine Protein Urine Glucose (UA) Urine Ketones Urine Blood Urine Nitrite Urine Bilirubin Urine Urobilinogen Ur Leukocyte Esterase Opiates Screen Methadone Screen Barbiturate Screen Phencyclidine Screen Ur Amphetamines Screen MDMA (Ecstasy) Screen Benzodiazepines Screen Cocaine Screen U Marijuana (THC) Screen HIV 1&2 Antibody Screen HIV P24 Antigen 09/23/19 09/23/19 09/23/19 16:33 16:52 17:00 WBC RBC Hgb Hct MCV MCH MCHC RDW Plt Count MPV Absolute Neuts (auto) Neutrophils % Lymphocytes % Monocytes % Eosinophils % Basophils % Nucleated RBC % PT with INR INR PTT (Actin FS) Anticoagulation Therapy No Result Required. Puncture Site Right radial ABG pH 7.43 ABG pCO2 at Pt Temp 41.9 ABG pO2 at Pt Temp 117 H ABG HCO3 27.2 H ABG O2 Sat (Measured) 98.5 H ABG O2 Content 17.7 ABG Base Excess 3.0 H Jim Test Positive VBG pH 7.36 POC VBG pCO2 54.3 H POC VBG pO2 < 49 H VBG HCO3 30.1 H VBG O2 Sat (Merrill) 52.4 L VBG Base Excess 3.7 H O2 Delivery Device Room air Oxygen Flow Rate Yes Vent Mode No Result Required. Vent Rate No Result Required. Mechanical Rate No Result Required. Pressure Support Vent No Result Required. Sodium Potassium Chloride Carbon Dioxide Anion Gap BUN Creatinine Est GFR (CKD-EPI)AfAm Est GFR (CKD-EPI)NonAf POC Glucometer 441 Random Glucose Hemoglobin A1c % Lactic Acid Calcium Phosphorus Magnesium Total Bilirubin Direct Bilirubin AST ALT Alkaline Phosphatase Creatine Kinase Troponin I Total Protein Albumin Beta-Hydroxybutyrate TSH Serum , Qual Urine Color Urine Appearance Urine pH Ur Specific [place] Urine Protein Urine Glucose (UA) Urine Ketones Urine Blood Urine Nitrite Urine Bilirubin Urine Urobilinogen Ur Leukocyte Esterase Opiates Screen Methadone Screen Barbiturate Screen Phencyclidine Screen Ur Amphetamines Screen MDMA (Ecstasy) Screen Benzodiazepines Screen Cocaine Screen U Marijuana (THC) Screen HIV 1&2 Antibody Screen HIV P24 Antigen 09/23/19 09/23/19 09/23/19 17:55 19:40 20:56 WBC RBC Hgb Hct MCV MCH MCHC RDW Plt Count MPV Absolute Neuts (auto) Neutrophils % Lymphocytes % Monocytes % Eosinophils % Basophils % Nucleated RBC % PT with INR INR PTT (Actin FS) Anticoagulation Therapy Puncture Site ABG pH ABG pCO2 at Pt Temp ABG pO2 at Pt Temp ABG HCO3 ABG O2 Sat (Measured) ABG O2 Content ABG Base Excess Jim Test VBG pH POC VBG pCO2 POC VBG pO2 VBG HCO3 VBG O2 Sat (Merrill) VBG Base Excess O2 Delivery Device Oxygen Flow Rate Vent Mode Vent Rate Mechanical Rate Pressure Support Vent Sodium 136 Potassium 3.7 Chloride 99 Carbon Dioxide 27 Anion Gap 11 BUN 10.5 Creatinine 0.9 Est GFR (CKD-EPI)AfAm 95.34 Est GFR (CKD-EPI)NonAf 82.26 POC Glucometer 297 210 Random Glucose 270 H Hemoglobin A1c % Lactic Acid Calcium 8.1 L Phosphorus Magnesium Total Bilirubin Direct Bilirubin AST ALT Alkaline Phosphatase Creatine Kinase Troponin I Total Protein Albumin Beta-Hydroxybutyrate TSH Serum , Qual Urine Color Urine Appearance Urine pH Ur Specific [place] Urine Protein Urine Glucose (UA) Urine Ketones Urine Blood Urine Nitrite Urine Bilirubin Urine Urobilinogen Ur Leukocyte Esterase Opiates Screen Methadone Screen Barbiturate Screen Phencyclidine Screen Ur Amphetamines Screen MDMA (Ecstasy) Screen Benzodiazepines Screen Cocaine Screen U Marijuana (THC) Screen HIV 1&2 Antibody Screen HIV P24 Antigen 09/23/19 09/24/19 09/24/19 23:27 00:22 01:29 WBC RBC Hgb Hct MCV MCH MCHC RDW Plt Count MPV Absolute Neuts (auto) Neutrophils % Lymphocytes % Monocytes % Eosinophils % Basophils % Nucleated RBC % PT with INR INR PTT (Actin FS) Anticoagulation Therapy Puncture Site ABG pH ABG pCO2 at Pt Temp ABG pO2 at Pt Temp ABG HCO3 ABG O2 Sat (Measured) ABG O2 Content ABG Base Excess Jim Test VBG pH POC VBG pCO2 POC VBG pO2 VBG HCO3 VBG O2 Sat (Merrill) VBG Base Excess O2 Delivery Device Oxygen Flow Rate Vent Mode Vent Rate Mechanical Rate Pressure Support Vent Sodium Potassium Chloride Carbon Dioxide Anion Gap BUN Creatinine Est GFR (CKD-EPI)AfAm Est GFR (CKD-EPI)NonAf POC Glucometer 299 276 191 Random Glucose Hemoglobin A1c % Lactic Acid Calcium Phosphorus Magnesium Total Bilirubin Direct Bilirubin AST ALT Alkaline Phosphatase Creatine Kinase Troponin I Total Protein Albumin Beta-Hydroxybutyrate TSH Serum , Qual Urine Color Urine Appearance Urine pH Ur Specific [place] Urine Protein Urine Glucose (UA) Urine Ketones Urine Blood Urine Nitrite Urine Bilirubin Urine Urobilinogen Ur Leukocyte Esterase Opiates Screen Methadone Screen Barbiturate Screen Phencyclidine Screen Ur Amphetamines Screen MDMA (Ecstasy) Screen Benzodiazepines Screen Cocaine Screen U Marijuana (THC) Screen HIV 1&2 Antibody Screen HIV P24 Antigen 09/24/19 09/24/1919 02:31 02:50 03:25 WBC RBC Hgb Hct MCV MCH MCHC RDW Plt Count MPV Absolute Neuts (auto) Neutrophils % Lymphocytes % Monocytes % Eosinophils % Basophils % Nucleated RBC % PT with INR INR PTT (Actin FS) Anticoagulation Therapy Puncture Site ABG pH ABG pCO2 at Pt Temp ABG pO2 at Pt Temp ABG HCO3 ABG O2 Sat (Measured) ABG O2 Content ABG Base Excess Jim Test VBG pH POC VBG pCO2 POC VBG pO2 VBG HCO3 VBG O2 Sat (Merrill) VBG Base Excess O2 Delivery Device Oxygen Flow Rate Vent Mode Vent Rate Mechanical Rate Pressure Support Vent Sodium 137 Potassium 3.4 L Chloride 103 Carbon Dioxide 29 Anion Gap 6 L BUN 6.9 L Creatinine 0.6 Est GFR (CKD-EPI)AfAm 135.91 Est GFR (CKD-EPI)NonAf 117.26 POC Glucometer 113 125 Random Glucose 139 H Hemoglobin A1c % Lactic Acid Calcium 7.8 L Phosphorus Magnesium Total Bilirubin Direct Bilirubin AST ALT Alkaline Phosphatase Creatine Kinase Troponin I Total Protein Albumin Beta-Hydroxybutyrate TSH Serum , Qual Urine Color Urine Appearance Urine pH Ur Specific [place] Urine Protein Urine Glucose (UA) Urine Ketones Urine Blood Urine Nitrite Urine Bilirubin Urine Urobilinogen Ur Leukocyte Esterase Opiates Screen Methadone Screen Barbiturate Screen Phencyclidine Screen Ur Amphetamines Screen MDMA (Ecstasy) Screen Benzodiazepines Screen Cocaine Screen U Marijuana (THC) Screen HIV 1&2 Antibody Screen HIV P24 Antigen 09/24/19 09/24/19 09/24/19 04:28 05:00 05:00 WBC 8.4 RBC 3.99 Hgb 11.6 Hct 33.4 D MCV 83.7 MCH 29.0 MCHC 34.7 RDW 13.7 Plt Count 253 D MPV 9.4 Absolute Neuts (auto) 5.9 Neutrophils % 69.8 Lymphocytes % 22.4 D Monocytes % 7.0 Eosinophils % 0.4 D Basophils % 0.4 Nucleated RBC % 0 PT with INR INR PTT (Actin FS) Anticoagulation Therapy Puncture Site ABG pH ABG pCO2 at Pt Temp ABG pO2 at Pt Temp ABG HCO3 ABG O2 Sat (Measured) ABG O2 Content ABG Base Excess Jim Test VBG pH POC VBG pCO2 POC VBG pO2 VBG HCO3 VBG O2 Sat (Merrill) VBG Base Excess O2 Delivery Device Oxygen Flow Rate Vent Mode Vent Rate Mechanical Rate Pressure Support Vent Sodium 135 L Potassium 3.5 Chloride 100 Carbon Dioxide 28 Anion Gap 6 L BUN 5.7 L Creatinine 0.4 L Est GFR (CKD-EPI)AfAm 155.30 Est GFR (CKD-EPI)NonAf 134.00 POC Glucometer 116 Random Glucose 121 H Hemoglobin A1c % Lactic Acid Calcium 7.9 L Phosphorus Magnesium 1.7 L Total Bilirubin 0.9 Direct Bilirubin 0.2 AST 17 ALT 25 Alkaline Phosphatase 99 Creatine Kinase Troponin I Total Protein 5.8 L Albumin 3.1 L Beta-Hydroxybutyrate TSH 0.13 L Serum , Qual Urine Color Urine Appearance Urine pH Ur Specific [place] Urine Protein Urine Glucose (UA) Urine Ketones Urine Blood Urine Nitrite Urine Bilirubin Urine Urobilinogen Ur Leukocyte Esterase Opiates Screen Methadone Screen Barbiturate Screen Phencyclidine Screen Ur Amphetamines Screen MDMA (Ecstasy) Screen Benzodiazepines Screen Cocaine Screen U Marijuana (THC) Screen HIV 1&2 Antibody Screen HIV P24 Antigen 09/24/19 09/24/19 09/24/19 05:00 05:00 05:16 WBC RBC Hgb Hct MCV MCH MCHC RDW Plt Count MPV Absolute Neuts (auto) Neutrophils % Lymphocytes % Monocytes % Eosinophils % Basophils % Nucleated RBC % PT with INR INR PTT (Actin FS) Anticoagulation Therapy Puncture Site ABG pH ABG pCO2 at Pt Temp ABG pO2 at Pt Temp ABG HCO3 ABG O2 Sat (Measured) ABG O2 Content ABG Base Excess Jim Test VBG pH POC VBG pCO2 POC VBG pO2 VBG HCO3 VBG O2 Sat (Merrill) VBG Base Excess O2 Delivery Device Oxygen Flow Rate Vent Mode Vent Rate Mechanical Rate Pressure Support Vent Sodium Potassium Chloride Carbon Dioxide Anion Gap BUN Creatinine Est GFR (CKD-EPI)AfAm Est GFR (CKD-EPI)NonAf POC Glucometer 116 Random Glucose Hemoglobin A1c % 12.6 H Lactic Acid Calcium Phosphorus Magnesium Total Bilirubin Direct Bilirubin AST ALT Alkaline Phosphatase Creatine Kinase Troponin I Total Protein Albumin Beta-Hydroxybutyrate TSH Serum , Qual Urine Color Urine Appearance Urine pH Ur Specific [place] Urine Protein Urine Glucose (UA) Urine Ketones Urine Blood Urine Nitrite Urine Bilirubin Urine Urobilinogen Ur Leukocyte Esterase Opiates Screen Methadone Screen Barbiturate Screen Phencyclidine Screen Ur Amphetamines Screen MDMA (Ecstasy) Screen Benzodiazepines Screen Cocaine Screen U Marijuana (THC) Screen HIV 1&2 Antibody Screen Negative HIV P24 Antigen Negative 09/24/19 09/24/19 09/24/19 06:20 07:25 08:21 WBC RBC Hgb Hct MCV MCH MCHC RDW Plt Count MPV Absolute Neuts (auto) Neutrophils % Lymphocytes % Monocytes % Eosinophils % Basophils % Nucleated RBC % PT with INR INR PTT (Actin FS) Anticoagulation Therapy Puncture Site ABG pH ABG pCO2 at Pt Temp ABG pO2 at Pt Temp ABG HCO3 ABG O2 Sat (Measured) ABG O2 Content ABG Base Excess Jim Test VBG pH POC VBG pCO2 POC VBG pO2 VBG HCO3 VBG O2 Sat (Merrill) VBG Base Excess O2 Delivery Device Oxygen Flow Rate Vent Mode Vent Rate Mechanical Rate Pressure Support Vent Sodium Potassium Chloride Carbon Dioxide Anion Gap BUN Creatinine Est GFR (CKD-EPI)AfAm Est GFR (CKD-EPI)NonAf POC Glucometer 117 120 123 Random Glucose Hemoglobin A1c % Lactic Acid Calcium Phosphorus Magnesium Total Bilirubin Direct Bilirubin AST ALT Alkaline Phosphatase Creatine Kinase Troponin I Total Protein Albumin Beta-Hydroxybutyrate TSH Serum , Qual Urine Color Urine Appearance Urine pH Ur Specific [place] Urine Protein Urine Glucose (UA) Urine Ketones Urine Blood Urine Nitrite Urine Bilirubin Urine Urobilinogen Ur Leukocyte Esterase Opiates Screen Methadone Screen Barbiturate Screen Phencyclidine Screen Ur Amphetamines Screen MDMA (Ecstasy) Screen Benzodiazepines Screen Cocaine Screen U Marijuana (THC) Screen HIV 1&2 Antibody Screen HIV P24 Antigen 09/24/19 09/24/19 09/24/19 09:22 10:21 10:33 WBC RBC Hgb Hct MCV MCH MCHC RDW Plt Count MPV Absolute Neuts (auto) Neutrophils % Lymphocytes % Monocytes % Eosinophils % Basophils % Nucleated RBC % PT with INR INR PTT (Actin FS) Anticoagulation Therapy Puncture Site ABG pH ABG pCO2 at Pt Temp ABG pO2 at Pt Temp ABG HCO3 ABG O2 Sat (Measured) ABG O2 Content ABG Base Excess Jim Test VBG pH POC VBG pCO2 POC VBG pO2 VBG HCO3 VBG O2 Sat (Merrill) VBG Base Excess O2 Delivery Device Oxygen Flow Rate Vent Mode Vent Rate Mechanical Rate Pressure Support Vent Sodium Potassium Chloride Carbon Dioxide Anion Gap BUN Creatinine Est GFR (CKD-EPI)AfAm Est GFR (CKD-EPI)NonAf POC Glucometer 156 136 Random Glucose Hemoglobin A1c % Lactic Acid 1.0 Calcium Phosphorus Magnesium Total Bilirubin Direct Bilirubin AST ALT Alkaline Phosphatase Creatine Kinase Troponin I Total Protein Albumin Beta-Hydroxybutyrate TSH Serum , Qual Urine Color Urine Appearance Urine pH Ur Specific [place] Urine Protein Urine Glucose (UA) Urine Ketones Urine Blood Urine Nitrite Urine Bilirubin Urine Urobilinogen Ur Leukocyte Esterase Opiates Screen Methadone Screen Barbiturate Screen Phencyclidine Screen Ur Amphetamines Screen MDMA (Ecstasy) Screen Benzodiazepines Screen Cocaine Screen U Marijuana (THC) Screen HIV 1&2 Antibody Screen HIV P24 Antigen 09/24/19 09/24/19 09/24/19 11:24 13:08 14:14 WBC RBC Hgb Hct MCV MCH MCHC RDW Plt Count MPV Absolute Neuts (auto) Neutrophils % Lymphocytes % Monocytes % Eosinophils % Basophils % Nucleated RBC % PT with INR INR PTT (Actin FS) Anticoagulation Therapy Puncture Site ABG pH ABG pCO2 at Pt Temp ABG pO2 at Pt Temp ABG HCO3 ABG O2 Sat (Measured) ABG O2 Content ABG Base Excess Jim Test VBG pH POC VBG pCO2 POC VBG pO2 VBG HCO3 VBG O2 Sat (Merrill) VBG Base Excess O2 Delivery Device Oxygen Flow Rate Vent Mode Vent Rate Mechanical Rate Pressure Support Vent Sodium 131 L Potassium 3.7 Chloride 98 Carbon Dioxide 26 Anion Gap 8 BUN 3.8 L Creatinine 0.5 L Est GFR (CKD-EPI)AfAm 144.31 Est GFR (CKD-EPI)NonAf 124.51 POC Glucometer 123 259 Random Glucose 248 H Hemoglobin A1c % Lactic Acid Calcium 8.0 L Phosphorus Magnesium Total Bilirubin Direct Bilirubin AST ALT Alkaline Phosphatase Creatine Kinase Troponin I Total Protein Albumin Beta-Hydroxybutyrate TSH Serum , Qual Urine Color Urine Appearance Urine pH Ur Specific [place] Urine Protein Urine Glucose (UA) Urine Ketones Urine Blood Urine Nitrite Urine Bilirubin Urine Urobilinogen Ur Leukocyte Esterase Opiates Screen Methadone Screen Barbiturate Screen Phencyclidine Screen Ur Amphetamines Screen MDMA (Ecstasy) Screen Benzodiazepines Screen Cocaine Screen U Marijuana (THC) Screen HIV 1&2 Antibody Screen HIV P24 Antigen Active Medications Generic Name Dose Route Start Last Admin Trade Name Freq PRN Reason Stop Dose Admin Albuterol Sulfate 1 amp 09/23/19 23:20 Ventolin 0.083% Nebulizer Soln - NEB Q6H PRN SHORT OF BREATH/WHEEZING Chlorhexidine Gluconate 1 applic 09/23/19 22:00 09/23/19 23:08 Hibiclens For Decolonization - TP 1 applic HS DREA Administration Heparin Sodium (Porcine) 5,000 unit 09/23/19 22:00 09/24/19 14:02 Heparin - SQ 5,000 unit TID DREA Administration Insulin Aspart 1 vial 09/24/19 11:49 09/24/19 12:13 Novolog Vial Sliding Scale - SQ Not Given ACHS DREA Protocol Insulin Detemir 10 units 09/24/19 22:00 Levemir Vial SQ HS [facility] Insulin Detemir 15 units 09/25/19 07:00 Levemir Vial SQ ACBK [facility] Labetalol HCl 100 mg 09/24/19 11:45 Normodyne - PO BID DREA Mupirocin 1 applic 09/23/19 22:00 09/24/19 11:34 Bactroban Ointment (For Decolonization) - NS 09/28/19 21:59 Not Given BID [facility] ASSESSMENT/PLAN: Princess Valentin is a 34yF with history of poorly controlled T1DM, gastroparesis, HTN, presented after daughter found patient unresponsive today. Admitted for hyperglycemia. Endo - hyperglycemic - resolved - switched insulin drip to AM/PM levemir + ISS - BGM ACHS Cards - hx HTN - started 100 labetalol BID - DVT ppx Pulm - breathing RA, no active issues Renal - LAYNE d/t dehydration - resolved - Cr wnl - no UTI on UA Neuro - lethargy - AOx3, no active issues GI - started DM/Na diet - AB US 09/24 did not show acute pathology - I/O ID - afebrile, no active issues FEN - no fluids - hypoNa - DM/Na diet PPX - heparin - no GI ppx Dispo - transfer to m/s Visit type - Emergency Visit Emergency Visit: Yes ED Registration Date: 09/23/19 Care time: The patient presented to the Emergency Department on the above date and was hospitalized for further evaluation of their emergent condition. - New Patient This patient is new to me today: Yes Date on this admission: 09/24/19 - Critical Care Critical Care patient: Yes Total Critical Care Time (in minutes): 35 Critical Care Statement: The care of this patient involved high complexity decision making to prevent further life threatening deterioration of the patient 's condition and/or to evaluate & treat vital organ system(s) failure or risk of failure. ATTENDING PHYSICIAN STATEMENT I saw and evaluated the patient. I reviewed the resident's note and discussed the case with the resident. I agree with the resident's findings and plan as documented. SUBJECTIVE: OBJECTIVE: ASSESSMENT AND PLAN:
[2019-09-24] MEDS ORDERED: INSULIN (LEVEMIR) 100 UNITS/ML UNITS SQ ONE (14:20)
[2019-09-24] MEDS ORDERED: ALBUTEROL SO4 0.083% IH SOL 2.5 MG/3 ML VIAL.NEB. NEB PRN (17:41)
[2019-09-24] MEDS ORDERED: INSULIN (LEVEMIR) 100 UNITS/ML UNITS SQ SCH ×3 (22:00)
[2019-09-24] MEDS ORDERED: PROCHLORPERAZINE INJECTION 10 MG/2 ML VIAL IVPB ONE (22:01)
[2019-09-24] MEDS ORDERED: INSULIN (NOVOLOG) ASPART 100 UNITS/ML 10ML VIAL ONE (22:04)
[2019-09-24] MEDS: LABETALOL HCL 100 MG TABLET (FP) PO SCH (22:56)
[2019-09-25] MEDS: INSULIN SLIDING SCALE (NOVOLOG) 1 VIAL SQ SCH ×2 (06:35→12:32)
[2019-09-25] MEDS: HEPARIN NA (PORCINE) 5,000 UNITS/ML 1ML VIAL SQ SCH ×2 (06:37→15:20)
[2019-09-25] MEDS ORDERED: INSULIN (LEVEMIR) 100 UNITS/ML UNITS SQ SCH ×3 (07:00)
[2019-09-25 08:19] LABS: HEMATOCRIT 41.3 % (32.4-45.2); HEMOGLOBIN 13.9 GM/dL (10.7-15.3); MCH 28.5 pg (25.7-33.7); MCHC 33.6 g/dl (32.0-36.0); MEAN PLT VOLUME 9.4 fl (7.5-11.1); PLATELET COUNT 305 K/MM3 (134-434); RBC 4.87 M/mm3 (3.60-5.2); RDW 13.6 % (11.6-15.6); WHITE BLOOD COUNT 5.2 K/mm3 (4.0-10.0)
--- NOTE | 2019-09-25 08:22 | PN ---
Teaching Attending Note Name of Resident: Kasey Helm ATTENDING PHYSICIAN STATEMENT I saw and evaluated the patient. I reviewed the resident's note and discussed the case with the resident. I agree with the resident's findings and plan as documented with exceptions below. SUBJECTIVE: Patient seen and examined. PO intake improved, no nausea/vomiting currently. Feels better. Reports compliance with insulin. OBJECTIVE: Vital Signs Period Temp Pulse Resp BP Sys/Powell Pulse Ox Last 24 Hr 97.8 F-99.6 F 65-130 18-20 102-168/67-109 97 Intake & Output 09/23/19 09/23/19 09/24/19 09/25/19 00:59 23:59 23:59 23:59 Intake Total 3037 0 Output Total 2600 Balance 437 0 Weight Home Medications Medication Instructions Recorded Insulin Lispro [Admelog] 14 unit SQ ASDIR PRN 06/11/18 Klonopin 1 mg PO BID 01/22/19 Basaglar Kwikpen U-100 10 units SQ HS 05/05/19 Basaglar Kwikpen U-100 15 units SQ AM 05/05/19 Labetalol HCl [Normodyne -] 200 mg PO ASDIR PRN 05/30/19 Omeprazole 40 mg PO ASDIR 05/30/19 Pantoprazole Sodium [Protonix -] 20 mg PO DAILY #30 tablet.ec 07/31/19 Potassium Chloride [K-Dur -] 20 meq PO DAILY 09/24/19 Promethazine HCl [Phenergan Liquid 10 ml PO Q6H 09/24/19 -] Active Medications Albuterol Sulfate (Ventolin 0.083% Nebulizer Soln -) 1 amp NEB Q6H PRN PRN Reason: SHORT OF BREATH/WHEEZING Heparin Sodium (Porcine) (Heparin -) 5,000 unit SQ TID DREA Last Admin: 09/25/19 06:37 Dose: Not Given Insulin Aspart (Novolog Vial Sliding Scale -) 1 vial SQ ACHS [facility]; Protocol Last Admin: 09/25/19 06:35 Dose: 2 units Insulin Detemir (Levemir Vial) 10 units SQ HS [facility] Last Admin: 09/24/19 22:58 Dose: 10 units Insulin Detemir (Levemir Vial) 15 units SQ [facility] Last Admin: 09/25/19 06:36 Dose: 15 units Labetalol HCl (Normodyne -) 100 mg PO BID DREA Last Admin: 09/24/19 22:56 Dose: 100 mg Laboratory Results - last 24 hr 09/23/19 09/24/19 09/24/19 16:33 05:00 05:00 Sodium 135 L Potassium 3.5 Chloride 100 Carbon Dioxide 28 Anion Gap 6 L BUN 5.7 L Creatinine 0.4 L Est GFR (CKD-EPI)AfAm 155.30 Est GFR (CKD-EPI)NonAf 134.00 POC Glucometer Random Glucose 121 H Hemoglobin A1c % 12.6 H Lactic Acid Calcium 7.9 L Magnesium 1.7 L Total Bilirubin 0.9 Direct Bilirubin 0.2 AST 17 ALT 25 Alkaline Phosphatase 99 Total Protein 5.8 L Albumin 3.1 L Beta-Hydroxybutyrate 2.2 12.2 H TSH 0.13 L HIV 1&2 Antibody Screen HIV P24 Antigen 09/24/19 09/24/19 09/24/19 05:00 08:21 09:22 Sodium Potassium Chloride Carbon Dioxide Anion Gap BUN Creatinine Est GFR (CKD-EPI)AfAm Est GFR (CKD-EPI)NonAf POC Glucometer 123 156 Random Glucose Hemoglobin A1c % Lactic Acid Calcium Magnesium Total Bilirubin Direct Bilirubin AST ALT Alkaline Phosphatase Total Protein Albumin Beta-Hydroxybutyrate TSH HIV 1&2 Antibody Screen Negative HIV P24 Antigen Negative 09/24/19 09/24/19 09/24/19 10:21 10:33 11:24 Sodium Potassium Chloride Carbon Dioxide Anion Gap BUN Creatinine Est GFR (CKD-EPI)AfAm Est GFR (CKD-EPI)NonAf POC Glucometer 136 123 Random Glucose Hemoglobin A1c % Lactic Acid 1.0 Calcium Magnesium Total Bilirubin Direct Bilirubin AST ALT Alkaline Phosphatase Total Protein Albumin Beta-Hydroxybutyrate TSH HIV 1&2 Antibody Screen HIV P24 Antigen 09/24/19 09/24/19 09/24/19 13:08 14:14 16:19 Sodium 131 L Potassium 3.7 Chloride 98 Carbon Dioxide 26 Anion Gap 8 BUN 3.8 L Creatinine 0.5 L Est GFR (CKD-EPI)AfAm 144.31 Est GFR (CKD-EPI)NonAf 124.51 POC Glucometer 259 272 Random Glucose 248 H Hemoglobin A1c % Lactic Acid Calcium 8.0 L Magnesium Total Bilirubin Direct Bilirubin AST ALT Alkaline Phosphatase Total Protein Albumin Beta-Hydroxybutyrate TSH HIV 1&2 Antibody Screen HIV P24 Antigen 09/24/19 09/24/19 19:23 21:40 Sodium Potassium Chloride Carbon Dioxide Anion Gap BUN Creatinine Est GFR (CKD-EPI)AfAm Est GFR (CKD-EPI)NonAf POC Glucometer 249 226 Random Glucose Hemoglobin A1c % Lactic Acid Calcium Magnesium Total Bilirubin Direct Bilirubin AST ALT Alkaline Phosphatase Total Protein Albumin Beta-Hydroxybutyrate TSH HIV 1&2 Antibody Screen HIV P24 Antigen Microbiology 09/23/19 13:55 Blood - Peripheral Venous Blood Culture - Preliminary NO GROWTH OBTAINED AFTER 24 HOURS, INCUBATION TO CONTINUE FOR 4 DAYS. 09/23/19 13:55 Blood - Peripheral Venous Blood Culture - Preliminary NO GROWTH OBTAINED AFTER 24 HOURS, INCUBATION TO CONTINUE FOR 4 DAYS. 09/23/19 14:25 Urine - Urine Clean Catch Urine Culture - Final NO GROWTH OBTAINED ASSESSMENT AND PLAN: 34 year old female with DM 1, Gastroparesis (s/p jejunotomy, s/p pylorectomy), asthma, hypertension, MJ use, brought in by daughter for poor responsiveness at home after several day history of nausea/vomiting and non-complaint with home insulin, found with DKA -DKA -Suspected insulin non compliance -LAYNE, likely from above/dehdyration -Nausea/vomiting, suspect from DKA +/- gastroparesis/Marihuana use -Type I DM -Gastoparesis (s/p jejunotomy/pylorectomy) -Asthma -HTN -Marihuana use Plan: Anion gap closed, LAYNE resolved. Off insulin drip No clinical evidence of infection On levemir Transition to home regimen Diabetic education/stress compliance Ongoing outpatient Gi follow up for gastroparesis, which could be contributory to her recurrent DKA/hyperglycemic episodes. Zofran/PPI. Continue labetalol. DVTPPX heparin Dispo dc home with close outpatient follow up. Stressed with patient in detail, all questions answered.
[2019-09-25] MEDS ORDERED: SODIUM CHLORIDE 1,000 ML IV STA (08:23)
[2019-09-25 08:55] LABS: BLOOD UREA NITROGEN 9.8 mg/dL (7-18); CALCIUM 8.9 mg/dL (8.5-10.1); CREATININE 0.8 mg/dL (0.55-1.3); MAGNESIUM 1.9 mg/dL (1.8-2.4); POTASSIUM 3.4 mmol/L (3.5-5.1)
[2019-09-25] MEDS ORDERED: SODIUM CHLORIDE 1,000 ML IV SCH (09:00)
[2019-09-25] MEDS ORDERED: MAGNESIUM SULF 50% (8.12 MEQ/2 ML-1 GM VIAL) IVPB ONE (09:30)
[2019-09-25] MEDS ORDERED: POTASSIUM CHLORIDE TABS 20 MEQ TABLET.ER (FP) PO ONE (10:00)
[2019-09-25] MEDS: LABETALOL HCL 100 MG TABLET (FP) PO SCH (11:59)
[2019-09-25] MEDS ORDERED: INSULIN (NOVOLOG) ASPART 100 UNITS/ML 10ML VIAL ONE (12:16)
[2019-09-25 13:00] VITALS: BMI 19.2
--- NOTE | 2019-09-25 13:35 | DS ---
Physical Exam: SUBJECTIVE: Patient seen and examined. No acute events overnight. OBJECTIVE: Vital Signs Period Temp Pulse Resp BP Sys/Powell Pulse Ox Last 24 Hr 97.8 F-99.6 F 75-130 18-18 102-157/67-103 97 PHYSICAL EXAM GENERAL: The patient is awake, alert, and fully oriented, in no acute distress. HEAD: Normal with no signs of trauma. EYES: PERRL, extraocular movements intact, sclera anicteric, conjunctiva clear. ENT: Ears normal, nares patent, oropharynx clear without exudates, moist mucous membranes. NECK: Trachea midline, full range of motion, supple. LUNGS: Breath sounds equal, clear to auscultation bilaterally, no wheezes, no crackles, no accessory muscle use. HEART: Regular rate and rhythm, S1, S2 without murmur, rub or gallop. ABDOMEN: Soft, nontender, nondistended, normoactive bowel sounds, no guarding, no rebound, no hepatosplenomegaly, no masses. EXTREMITIES: 2+ pulses, warm, well-perfused, no edema. NEUROLOGICAL: Cranial nerves II through XII grossly intact. Normal speech, gait not observed. PSYCH: Normal mood, normal affect. SKIN: Warm, dry, normal turgor, no rashes or lesions noted. LABS Laboratory Results - last 24 hr CBC, BMP 09/25/19 07:45 09/25/19 07:45 HOSPITAL COURSE: Date of Admission:09/23/19 Patient is a 34 year old female with history of poorly controlled Type 1 Diabetes mellitus, gastroparesis, hypertension, was brought in by EMS after daughter found patient unresponsive. On arrival in the ED, she was hyperglycemic at 722, UA positive for ketones and glucose, beta hydroxybutyrate at 14.1, and lactic acid elevated at 6.5. CXR, CT head, and UA were all negative for signs of infection. Pt was treated with IV boluses and started on an insulin drop in the ICU. Patient was monitored closely and her mental status slowly improved. She was eventually transitioned back to sq insulin after 24hr is insulin drip. She tolerated po well with no vomiting, fevers, or chills. Pt' s vitals are stable and she is clinically stable to be discharged home. CT head: no acute pathology CXR: no acute pathology RUQ US: no signs of obstruction or intra-abdominal pathology Date of Discharge: 09/25/19 Minutes to complete discharge: 35 Discharge Summary Problems reviewed: Yes Reason For Visit: ACUTE KIDNEY INJURY, WEAKNESS NAUSEA AND VOMITING Current Active Problems LAYNE (acute kidney injury) (Acute) DKA (diabetic ketoacidoses) (Acute) Lactic acidosis (Acute) Nausea and vomiting (Acute) Weakness (Acute) Condition: Stable - Instructions Diet, Activity, Other Instructions: You were admitted to the hospital because you were found to be unresponsive and noted to have very high sugar. This was likely because of your diabetes and constant vomiting from your gastroparesis. You were given IV insulin and IV fluids and your symptoms improved. It is important that you follow up with your primary care doctor and belt worker for further management of your gastroparesis and diabetes. Medications: - Resume all home medications as prescribed. It is important that you remain compliant with your insulin medication. Follow-Up: - Please follow up with your belt worker, Dr. Justin Plata at [facility] in one week for your gastroparesis and vomiting. - Please follow up with your data storage specialist, Dr. Loredo, within one week. - Please see your primary care provider (Dr. Martel) in one week. Return to the emergency department if you experience vomiting, headaches, fevers , chills, abdominal pain, or worsening of any symptoms. Referrals: Justin Mercer MD [Other] - 2 Weeks Pura Loredo MD [Other] - 1 Week Maira Oswald MD [Primary Care Provider] - 1 Week Disposition: HOME - Home Medications Comprehensive Discharge Medication List: Ambulatory Orders Insulin Lispro [Admelog] 14 unit SQ ASDIR PRN 06/11/18 Klonopin 1 mg PO BID 01/22/19 Basaglar Kwikpen U-100 10 units SQ HS 05/05/19 Basaglar Kwikpen U-100 15 units SQ AM 05/05/19 Omeprazole 40 mg PO ASDIR 05/30/19 Pantoprazole Sodium [Protonix -] 20 mg PO DAILY #30 tablet.ec 07/31/19 Potassium Chloride [K-Dur -] 20 meq PO DAILY 09/24/19 Promethazine HCl [Phenergan Plain 6.25 MG/5 ML -] 10 ml PO Q6H 09/24/19 Labetalol HCl 100 mg PO BID 09/25/19 This patient is new to me today: No Emergency Visit: No Critical Care patient: No - Discharge Referral Referred to [facility] No ATTENDING PHYSICIAN STATEMENT I saw and evaluated the patient. I reviewed the resident's note and discussed the case with the resident. I agree with the resident's findings and plan as documented. SUBJECTIVE: OBJECTIVE: ASSESSMENT AND PLAN:
[2019-09-25 15:35] VITALS: BP 95/62; PULSE 94; TEMP 98.4
== END 2019-09-25 16:23 | disposition home or self-care (01) | DRG 420 ==
LOC: JER 13:36 → JERBED 17:40 → JICU 18:38 → J5S 09-24 17:34
PROVIDERS: ATTEND Hospitalist
PROC: 05HB33Z Insertion of Infusion Device into Right Basilic Vein, Percutaneous Approach (ICD-10-PCS; principal; 2019-09-23)
PROC: B51MZZA Fluoroscopy of Right Upper Extremity Veins, Guidance (ICD-10-PCS; 2019-09-23)
DX: E10.10 Type 1 diabetes mellitus with ketoacidosis without coma (principal); E10.43 Type 1 diabetes mellitus with diabetic autonomic (poly)neuropathy; N17.9 Acute kidney failure, unspecified; R11.2 Nausea with vomiting, unspecified; E80.6 Other disorders of bilirubin metabolism; E10.65 Type 1 diabetes mellitus with hyperglycemia; F12.90 Cannabis use, unspecified, uncomplicated; R64 Cachexia; Z68.1 Body mass index [BMI] 19.9 or less, adult; G93.41 Metabolic encephalopathy; K31.84 Gastroparesis; E78.00 Pure hypercholesterolemia, unspecified; I10 Essential (primary) hypertension; E86.0 Dehydration; E87.2 Acidosis; J45.909 Unspecified asthma, uncomplicated; Z91.14 Patient's other noncompliance with medication regimen
CPT/HCPCS: 36415; 36600; 70450-TC; 71045-TC-FY; 76705-TC; 80048; 80053; 80307; 81003; 82010; 82248; 82550; 82803; 82962; 83036; 83605; 83735; 84100; 84443; 84484; 84703; 85025; 85027; 85610; 85730; 87040; 87086; 87389; 93005; 93010; 99285-25; J1644; J7030

== ENCOUNTER 2020-11-19 00:06 | Inpatient (IN) | payer OTHER ==
[2020-11-19] MEDS ORDERED: SODIUM CHLORIDE 1,000 ML IV STA ×2 (00:34→01:33)
[2020-11-19 00:58] LABS: VENOUS BASE EXCESS -8.7 mmol/L (-2-2); VENOUS O2 SATURATION 64.6 % (70-80); VENOUS PCO2 33.7 mmHg (38-52); VENOUS PH 7.307 (7.310-7.410)
[2020-11-19 00:59] LABS: BASO % 0.3 % (0-2.0); EOS % 0.7 % (0-4.5); LYMPH % 16.9 % (8-40); MCH 28.8 pg (25.7-33.7); MCHC 32.7 g/dl (32.0-36.0); MEAN CELL VOLUME 88.1 fl (80-96); MEAN PLT VOLUME 10.1 fl (7.5-11.1); MONO % 8.5 % (3.8-10.2); NEUT % 73.6 % (42.8-82.8); PLATELET COUNT 275 K/MM3 (134-434); RBC 5.22 M/mm3 (3.60-5.2); WHITE BLOOD COUNT 6.2 K/mm3 (4.0-10.0)
[2020-11-19 01:14] LABS: CALCIUM 9.2 mg/dL (8.5-10.1)
[2020-11-19 01:15] LABS: ALBUMIN 4.4 g/dl (3.4-5.0); BLOOD UREA NITROGEN 17.1 mg/dL (7-18); MAGNESIUM 1.9 mg/dL (1.8-2.4)
[2020-11-19 01:18] LABS: CREATININE 1.2 mg/dL (0.55-1.3); PHOSPHOROUS 3.2 mg/dL (2.5-4.9)
[2020-11-19 01:19] LABS: BILIRUBIN,TOTAL 1.2 mg/dL (0.2-1); TOT PROT 8.6 g/dl (6.4-8.2)
[2020-11-19] MEDS ORDERED: INSULIN REGULAR HUMAN 100 UNITS/ML *VIAL SQ ONE ×2 (01:32→05:58)
[2020-11-19] MEDS ORDERED: CALCIUM GLUCONATE 10% - 1,000 MG/10 ML VIAL IVPUSH ONE (01:37)
[2020-11-19] MEDS ORDERED: CALCIUM GLUCONATE 10% - 1,000 MG/10 ML VIAL ONE (01:46)
[2020-11-19 02:01] LABS: URINE APPEARANCE CLEAR; URINE BILIRUBIN NEGATIVE (NEGATIVE); URINE COLOR YELLOW; URINE GLUCOSE (UA) 3+ (NEGATIVE); URINE KETONE 4+ (NEGATIVE); URINE LEUK ESTERASE NEGATIVE (NEGATIVE); URINE NITRITE NEGATIVE (NEGATIVE); URINE PROTEIN NEGATIVE (NEGATIVE); URINE UROBILINOGEN 0.2 mg/dL (0.2-1.0)
[2020-11-19 02:07] LABS: PHENCYCLIDINE,URINE NEGATIVE ng/ml (CUTOFF=25); URINE BENZODIAZEPINES NEGATIVE ng/ml (CUTOFF=200)
[2020-11-19 02:08] LABS: URINE BARBITURATES NEGATIVE ng/ml (CUTOFF=200)
[2020-11-19 02:10] LABS: COCAINE, UR NEGATIVE ng/ml (CUTOFF=300); METHADONE, UR NEGATIVE ng/ml (CUTOFF=300); OPIATES, URI NEGATIVE ng/ml (CUTOFF=300)
[2020-11-19 02:53] LABS: URINE AMPHETAMINES POSITIVE ng/ml (CUTOFF=500)
[2020-11-19 04:08] LABS: VENOUS BASE EXCESS -10.6 mmol/L (-2-2); VENOUS O2 SATURATION 54.1 % (70-80); VENOUS PCO2 44.4 mmHg (38-52); VENOUS PH 7.203 (7.310-7.410)
[2020-11-19 04:30] LABS: CALCIUM 7.7 mg/dL (8.5-10.1)
[2020-11-19 04:31] LABS: BLOOD UREA NITROGEN 15.8 mg/dL (7-18)
[2020-11-19] MEDS ORDERED: SODIUM CHLORIDE 1,000 ML IV SCH ×2 (04:45→07:45)
[2020-11-19 04:46] LABS: ARTERIAL BLD GAS O2 SATURATION 97.6 mmHg (95-98); ARTERIAL BLOOD GAS BASE EXCESS -7.1 mmol/L (-2-2); ARTERIAL BLOOD GAS PO2 104.6 mmHg (80-100); ARTERIAL BLOOD GAS pH 7.345 (7.350-7.450)
[2020-11-19] MEDS ORDERED: PROMETHAZINE HCL 25 MG/1 ML VIAL IVPUSH ONE (05:06)
[2020-11-19] MEDS ORDERED: PROMETHAZINE HCL 25 MG/1 ML VIAL ONE (05:11)
[2020-11-19] MEDS ORDERED: LORazepam 2 MG/ML SDV VIAL IVPB ONE (05:59)
[2020-11-19] MEDS ORDERED: LORazepam 2 MG/ML SDV VIAL ONE (06:05)
[2020-11-19 06:33] LABS: ARTERIAL BLD GAS O2 SATURATION 96.7 mmHg (95-98); ARTERIAL BLOOD GAS BASE EXCESS -4.9 mmol/L (-2-2); ARTERIAL BLOOD GAS PO2 91.9 mmHg (80-100); ARTERIAL BLOOD GAS pH 7.351 (7.350-7.450)
[2020-11-19 06:43] LABS: ALLENS TEST POSITIVE
[2020-11-19] MEDS ORDERED: METOCLOPRAMIDE HCL INJECTION 10 MG/2 ML VIAL ONE (07:05)
[2020-11-19] MEDS ORDERED: METOCLOPRAMIDE HCL INJECTION 10 MG/2 ML VIAL IVPB ONE (07:19)
[2020-11-19] MEDS ORDERED: SODIUM CHLORIDE 500 ML IV STA (07:39)
[2020-11-19] MEDS: DEXTROSE 5%-0.45% SALINE 1,000 ML IV SCH (09:00)
[2020-11-19] MEDS: INSULIN SLIDING SCALE (NOVOLOG) 1 VIAL SQ SCH ×7 (09:17→19:05)
[2020-11-19] MEDS ORDERED: ENOXAPARIN NA (PORCINE) 40 MG/0.4 ML DISP.SYRIN SQ ONE (10:15)
[2020-11-19] MEDS: ENOXAPARIN NA (PORCINE) 40 MG/0.4 ML DISP.SYRIN SQ SCH (10:18)
[2020-11-19 10:23] LABS: BASO % 0.8 % (0-2.0); EOS % 0.4 % (0-4.5); HEMATOCRIT 39.7 % (32.4-45.2); HEMOGLOBIN 13.5 GM/dL (10.7-15.3); LYMPH % 21.7 % (8-40); MCH 29.5 pg (25.7-33.7); MEAN CELL VOLUME 86.8 fl (80-96); MEAN PLT VOLUME 8.8 fl (7.5-11.1); MONO % 9.7 % (3.8-10.2); NEUT % 67.4 % (42.8-82.8); PLATELET COUNT 279 K/MM3 (134-434); RBC 4.57 M/mm3 (3.60-5.2); RDW 13.5 % (11.6-15.6); WHITE BLOOD COUNT 6.9 K/mm3 (4.0-10.0)
[2020-11-19 10:47] LABS: CALCIUM 8.5 mg/dL (8.5-10.1)
[2020-11-19 10:48] LABS: BLOOD UREA NITROGEN 12.9 mg/dL (7-18); MAGNESIUM 1.9 mg/dL (1.8-2.4)
[2020-11-19 10:51] LABS: CREATININE 0.9 mg/dL (0.55-1.3)
[2020-11-19] MEDS ORDERED: INSULIN SLIDING SCALE (NOVOLOG) 1 VIAL SQ ONE (14:17)
[2020-11-19 16:26] LABS: BLOOD UREA NITROGEN 12.3 mg/dL (7-18); CALCIUM 8.6 mg/dL (8.5-10.1)
[2020-11-19 16:37] LABS: CREATININE 0.9 mg/dL (0.55-1.3)
[2020-11-19] MEDS: KCL 10 MEQ IVPB 10 MEQ/100 ML INFUS.BAG IVPB SCH ×2 (22:16→23:41)
[2020-11-20] MEDS: INSULIN SLIDING SCALE (NOVOLOG) 1 VIAL SQ SCH ×5 (02:18→22:55)
[2020-11-20] MEDS: KCL 10 MEQ IVPB 10 MEQ/100 ML INFUS.BAG IVPB SCH (06:28)
[2020-11-20] MEDS: DEXTROSE 5%-0.45% SALINE 1,000 ML IV SCH (07:41)
[2020-11-20] MEDS ORDERED: ENOXAPARIN NA (PORCINE) 40 MG/0.4 ML DISP.SYRIN SQ ONE (09:24)
[2020-11-20] MEDS: ENOXAPARIN NA (PORCINE) 40 MG/0.4 ML DISP.SYRIN SQ SCH (09:30)
[2020-11-20] MEDS ORDERED: INSULIN (LEVEMIR) 100 UNITS/ML UNITS SQ SCH (10:00)
[2020-11-20] MEDS ORDERED: INSULIN SLIDING SCALE (NOVOLOG) 1 VIAL SQ SCH (12:15)
[2020-11-20] MEDS ORDERED: LACTATED RINGERS SOLUTION 1,000 ML/1,000 ML INFUS.BAG IV SCH (12:15)
[2020-11-20] MEDS ORDERED: INSULIN (LEVEMIR) 100 UNITS/ML UNITS SQ ONE (12:30)
[2020-11-20 12:44] VITALS: BMI 17.2
[2020-11-20 15:21] LABS: BASO % 0.5 % (0-2.0); EOS % 0.5 % (0-4.5); HEMATOCRIT 35.7 % (32.4-45.2); HEMOGLOBIN 12.2 GM/dL (10.7-15.3); LYMPH % 36.4 % (8-40); MCH 29.1 pg (25.7-33.7); MEAN CELL VOLUME 85.5 fl (80-96); MEAN PLT VOLUME 8.5 fl (7.5-11.1); MONO % 12.1 % (3.8-10.2); NEUT % 50.5 % (42.8-82.8); PLATELET COUNT 231 K/MM3 (134-434); RBC 4.18 M/mm3 (3.60-5.2); RDW 13.6 % (11.6-15.6); WHITE BLOOD COUNT 5.1 K/mm3 (4.0-10.0)
[2020-11-20 15:50] LABS: CALCIUM 8.5 mg/dL (8.5-10.1)
[2020-11-20 15:51] LABS: ALBUMIN 3.3 g/dl (3.4-5.0); BLOOD UREA NITROGEN 7.7 mg/dL (7-18); MAGNESIUM 1.7 mg/dL (1.8-2.4)
[2020-11-20 15:53] LABS: CREATININE 0.7 mg/dL (0.55-1.3)
[2020-11-20 15:55] LABS: BILIRUBIN,TOTAL 0.6 mg/dL (0.2-1)
[2020-11-20] MEDS ORDERED: clonazePAM 0.5 MG TABLET PO ONE (15:57)
[2020-11-20] MEDS ORDERED: clonazePAM 0.5 MG TABLET PO PRN (16:30)
[2020-11-20 16:48] LABS: TOT PROT 6.3 g/dl (6.4-8.2)
[2020-11-20] MEDS ORDERED: SCOPOLAMINE HYDROBROMIDE 1 PATCH PATCH.TD72 TD PRN (17:00)
[2020-11-20 17:13] LABS: PHOSPHOROUS 0.9 mg/dL (2.5-4.9)
[2020-11-20] MEDS ORDERED: MAGNESIUM OXIDE 400 MG TABLET (FP) PO ONE (17:15)
[2020-11-20] MEDS: INSULIN (NOVOLOG) ASPART 100 UNITS/ML 10ML VIAL SQ SCH (17:19)
[2020-11-20] MEDS ORDERED: LACTATED RINGERS SOLUTION 1,000 ML with POTASSIUM CHLORIDE 40 MEQ IV ONE (17:20)
[2020-11-20] MEDS ORDERED: POTASSIUM CHLORIDE TABS 20 MEQ TABLET.ER (FP) PO ONE ×3 (17:24→23:00)
[2020-11-20] MEDS: PANTOPRAZOLE 40 MG TABLET PO SCH (17:36)
[2020-11-20] MEDS ORDERED: POTASSIUM PHOSPHATE 30 MM in SODIUM CHLORIDE 500 ML IVPB ONE (18:00)
[2020-11-20] MEDS ORDERED: clonazePAM 0.5 MG TABLET PO SCH ×2 (18:00→22:00)
[2020-11-20 22:03] LABS: CALCIUM 8.5 mg/dL (8.5-10.1)
[2020-11-20 22:04] LABS: BLOOD UREA NITROGEN 6.7 mg/dL (7-18)
[2020-11-20 22:07] LABS: CREATININE 0.6 mg/dL (0.55-1.3)
[2020-11-20] MEDS: INSULIN (LEVEMIR) 100 UNITS/ML UNITS SQ SCH (23:14)
[2020-11-21] MEDS: INSULIN (LEVEMIR) 100 UNITS/ML UNITS SQ SCH (06:57)
[2020-11-21 09:31] VITALS: BP 105/69; PULSE 75; TEMP 97.8
[2020-11-21] MEDS ORDERED: POTASSIUM CHLORIDE ORAL LIQUID 20 MEQ/15 ML PO SCH (10:00)
[2020-11-21] MEDS: INSULIN (NOVOLOG) ASPART 100 UNITS/ML 10ML VIAL SQ SCH ×2 (10:17→12:16)
[2020-11-21] MEDS: INSULIN SLIDING SCALE (NOVOLOG) 1 VIAL SQ SCH ×3 (10:17→17:02)
[2020-11-21] MEDS: ENOXAPARIN NA (PORCINE) 40 MG/0.4 ML DISP.SYRIN SQ SCH (10:21)
[2020-11-21] MEDS: PANTOPRAZOLE 40 MG TABLET PO SCH (10:21)
[2020-11-21 11:45] LABS: BASO % 0.4 % (0-2.0); EOS % 0.8 % (0-4.5); HEMATOCRIT 37.4 % (32.4-45.2); HEMOGLOBIN 12.3 GM/dL (10.7-15.3); MCH 29.2 pg (25.7-33.7); MCHC 32.9 g/dl (32.0-36.0); MEAN CELL VOLUME 88.8 fl (80-96); MEAN PLT VOLUME 9.4 fl (7.5-11.1); MONO % 6.8 % (3.8-10.2); PLATELET COUNT 186 K/MM3 (134-434); RBC 4.21 M/mm3 (3.60-5.2); RDW 13.6 % (11.6-15.6)
[2020-11-21 12:04] LABS: CALCIUM 8.2 mg/dL (8.5-10.1)
[2020-11-21 12:05] LABS: ALBUMIN 3.2 g/dl (3.4-5.0); BLOOD UREA NITROGEN 6.4 mg/dL (7-18); MAGNESIUM 1.6 mg/dL (1.8-2.4)
[2020-11-21 12:08] LABS: CREATININE 0.9 mg/dL (0.55-1.3)
[2020-11-21 12:09] LABS: BILIRUBIN,TOTAL 0.7 mg/dL (0.2-1); PHOSPHOROUS 1.9 mg/dL (2.5-4.9); TOT PROT 6.1 g/dl (6.4-8.2)
== END 2020-11-21 18:11 | disposition left against medical advice (07) | DRG 638 ==
LOC: JER 00:06 → JERBED 06:20 → J6WEST-2 11-20 11:05
PROVIDERS: ADMIT Internal Medicine; ATTEND Internal Medicine
DX: E10.10 Type 1 diabetes mellitus with ketoacidosis without coma (principal); E87.1 Hypo-osmolality and hyponatremia; Z68.1 Body mass index [BMI] 19.9 or less, adult; R63.6 Underweight; E86.9 Volume depletion, unspecified; I10 Essential (primary) hypertension; E86.0 Dehydration; R00.0 Tachycardia, unspecified; E87.6 Hypokalemia; E83.39 Other disorders of phosphorus metabolism; F41.9 Anxiety disorder, unspecified; F41.0 Panic disorder [episodic paroxysmal anxiety]; Z79.4 Long term (current) use of insulin; E10.43 Type 1 diabetes mellitus with diabetic autonomic (poly)neuropathy; K31.84 Gastroparesis; F19.10 Other psychoactive substance abuse, uncomplicated
CPT/HCPCS: 36415; 36600; 71045-TC-FY; 80048; 80053; 80307; 81003; 82010; 82803; 82962; 83036; 83605; 83735; 84100; 84703; 85025; 87040; 87086; 93005; 93010; 99291; 99292; C9803; U0003

== ENCOUNTER 2021-02-25 16:17 | Emergency (ER) | payer SELFPAY ==
[2021-02-25 16:56] VITALS: TEMP 98; BMI 21.4
[2021-02-25 17:47] LABS: BASO % 3.1 % (0-2.0); EOS % 0.7 % (0-4.5); HEMATOCRIT 47.7 % (32.4-45.2); HEMOGLOBIN 15.5 GM/dl (10.7-15.3); LYMPH % 19.6 % (8-40); MCH 27.9 pg (25.7-33.7); MCHC 32.5 g/dl (32.0-36.0); MEAN CELL VOLUME 85.8 fl (80-96); MEAN PLT VOLUME 8.1 fl (7.5-11.1); MONO % 9.5 % (3.8-10.2); NEUT % 67.1 % (42.8-82.8); PLATELET COUNT 316 K/MM3 (134-434); RBC 5.56 M/mm3 (3.60-5.2); RDW 13.3 % (11.6-15.6); WHITE BLOOD COUNT 10.3 K/mm3 (4.0-10.8)
[2021-02-25 17:55] LABS: ALBUMIN 4.1 g/dl (3.4-5.0); BILIRUBIN,TOTAL 1.2 mg/dl (0.2-1); CALCIUM 9.4 mg/dl (8.5-10); CREATININE 0.6 mg/dl (0.55-1.3); TOT PROT 7.4 g/dl (6.4-8.2)
[2021-02-25 18:32] VITALS: BP 165/96; PULSE 76
[2021-02-25] MEDS ORDERED: SODIUM CHLORIDE 1,000 ML IV STA (21:15)
[2021-02-25 22:37] LABS: COCAINE, UR NEGATIVE ng/ml (CUTOFF=300); URINE BARBITURATES NEGATIVE ng/ml (CUTOFF=200); URINE BENZODIAZEPINES NEGATIVE ng/ml (CUTOFF=200)
[2021-02-25 22:38] LABS: METHADONE, UR NEGATIVE ng/ml (CUTOFF=300); OPIATES, URI NEGATIVE ng/ml (CUTOFF=300); PHENCYCLIDINE,URINE NEGATIVE ng/ml (CUTOFF=25); URINE AMPHETAMINES NEGATIVE ng/ml (CUTOFF=500)
== END 2021-02-25 23:06 | disposition home or self-care (01) ==
LOC: MERGE 16:17 → FER 16:17
PROC: 3E0337Z Introduction of Electrolytic and Water Balance Substance into Peripheral Vein, Percutaneous Approach (ICD-10-PCS; principal; 2021-02-25)
DX: E86.0 Dehydration (principal); K31.84 Gastroparesis
CPT/HCPCS: 36415; 80053; 80307; 82550; 84484; 84703; 85025; 93005; 99285-25

== ENCOUNTER 2021-03-27 10:07 | Emergency (ER) | payer OTHER ==
[2021-03-27] MEDS ORDERED: SODIUM CHLORIDE 1,000 ML IV STA (10:34)
[2021-03-27] MEDS ORDERED: LACTATED RINGERS SOLUTION 1,000 ML/1,000 ML INFUS.BAG IV STA ×2 (10:40→12:09)
[2021-03-27 10:52] VITALS: TEMP 98.4; BMI 24.0
[2021-03-27 11:01] LABS: VENOUS BASE EXCESS 3.8 mmol/L (-2-2); VENOUS O2 SATURATION 68.5 % (70-80); VENOUS PCO2 29.9 mmHg (38-52); VENOUS PH 7.542 (7.310-7.410)
[2021-03-27 11:02] LABS: BASO % 0.7 % (0-2.0); EOS % 0.5 % (0-4.5); HEMATOCRIT 41.8 % (32.4-45.2); HEMOGLOBIN 14.5 GM/dL (10.7-15.3); LYMPH % 23.9 % (8-40); MCH 28.9 pg (25.7-33.7); MCHC 34.8 g/dl (32.0-36.0); MEAN CELL VOLUME 83.1 fl (80-96); MEAN PLT VOLUME 8.6 fl (7.5-11.1); MONO % 9.1 % (3.8-10.2); NEUT % 65.8 % (42.8-82.8); PLATELET COUNT 375 K/MM3 (134-434); RBC 5.03 M/mm3 (3.60-5.2); RDW 14.3 % (11.6-15.6); WHITE BLOOD COUNT 5.7 K/mm3 (4.0-10.0)
[2021-03-27 11:29] LABS: ALBUMIN 4.1 g/dl (3.4-5.0); BLOOD UREA NITROGEN 10.2 mg/dL (7-18); CALCIUM 9.9 mg/dL (8.5-10.1)
[2021-03-27 11:32] LABS: CREATININE 0.9 mg/dL (0.55-1.3)
[2021-03-27 11:34] LABS: TOT PROT 7.9 g/dl (6.4-8.2)
[2021-03-27 12:04] LABS: LACTIC ACID 3.2 mmol/L (0.4-2.0)
[2021-03-27] MEDS ORDERED: KCL 10 MEQ IVPB 30 MEQ/300 ML INFUS.BAG IVPB ONE (12:39)
[2021-03-27] MEDS: KCL 10 MEQ IVPB 10 MEQ/100 ML INFUS.BAG IVPB SCH ×2 (12:47→14:00)
[2021-03-27 13:39] LABS: URINE APPEARANCE CLEAR; URINE COLOR YELLOW
[2021-03-27 13:40] LABS: URINE BILIRUBIN NEGATIVE (NEGATIVE); URINE KETONE 15 mg/dl (NEGATIVE); URINE LEUK ESTERASE 1+ (NEGATIVE); URINE NITRITE NEGATIVE (NEGATIVE); URINE PROTEIN 1+ (NEGATIVE)
[2021-03-27] MEDS ORDERED: POTASSIUM CHLORIDE TABS 20 MEQ TABLET.ER (FP) PO ONE ×2 (13:40→13:47)
[2021-03-27 13:41] LABS: EPI CELLS 21.5 /uL (0-25.1); HYALINE CASTS 3.21 /uL (0-3.1); URINE BACTERIA 348.9 /uL (0-1359); URINE RBC 4.3 /uL (0-23.9)
[2021-03-27] MEDS ORDERED: POTASSIUM CHLORIDE ORAL LIQUID 20 MEQ/15 ML PO ONE (13:54)
[2021-03-27] MEDS ORDERED: POTASSIUM CHLORIDE ORAL LIQUID 20 MEQ/15 ML ONE (13:55)
[2021-03-27 16:10] VITALS: BP 156/102; PULSE 70
== END 2021-03-27 16:10 | disposition home or self-care (01) ==
LOC: JER 10:07
DX: R73.9 Hyperglycemia, unspecified (principal); R11.2 Nausea with vomiting, unspecified
CPT/HCPCS: 36415; 71045-TC-FY; 80053; 81003; 82010; 82803; 82962; 83605; 83690; 84703; 85025; 87086; 93005; 93010; 99285-25; C9803; U0003; U0005

== ENCOUNTER 2021-03-29 14:25 | Emergency (ER) | payer OTHER ==
[2021-03-29 14:52] VITALS: BMI 24.9
[2021-03-29] MEDS ORDERED: LACTATED RINGERS SOLUTION 1000 ML INFUS.BAG IV ONE ×2 (15:11→18:09)
[2021-03-29 16:09] LABS: BASO % 0.9 % (0-2.0); EOS % 0.3 % (0-4.5); HEMATOCRIT 45.3 % (32.4-45.2); HEMOGLOBIN 15.4 GM/dL (10.7-15.3); LYMPH % 19.5 % (8-40); MCH 29.2 pg (25.7-33.7); MCHC 34.1 g/dl (32.0-36.0); MEAN CELL VOLUME 85.7 fl (80-96); MEAN PLT VOLUME 8.9 fl (7.5-11.1); MONO % 8.2 % (3.8-10.2); NEUT % 71.1 % (42.8-82.8); PLATELET COUNT 405 K/MM3 (134-434); RBC 5.28 M/mm3 (3.60-5.2); RDW 14.6 % (11.6-15.6)
[2021-03-29] MEDS ORDERED: SODIUM CHLORIDE 0.9% 500 ML INFUS.BAG IV ONE (16:16)
[2021-03-29 16:32] LABS: ALBUMIN 4.3 g/dl (3.4-5.0); CALCIUM 9.5 mg/dL (8.5-10.1)
[2021-03-29 16:33] LABS: BLOOD UREA NITROGEN 11.7 mg/dL (7-18)
[2021-03-29 16:33] LABS: VENOUS BASE EXCESS 2.1 mmol/L (-2-2); VENOUS O2 SATURATION 38.6 % (70-80); VENOUS PCO2 45.2 mmHg (38-52); VENOUS PH 7.402 (7.310-7.410)
[2021-03-29 16:36] LABS: CREATININE 0.8 mg/dL (0.55-1.3)
[2021-03-29 16:37] LABS: BILIRUBIN,TOTAL 0.7 mg/dL (0.2-1); TOT PROT 8.4 g/dl (6.4-8.2)
[2021-03-29 16:46] LABS: PLATELET ESTIMATE ADEQUATE
[2021-03-29] MEDS: SODIUM CHLORIDE 0.9% 500 ML INFUS.BAG IV ONE ×2 (18:01→18:34)
[2021-03-29 18:38] VITALS: BP 119/79; PULSE 86
[2021-03-29 18:39] VITALS: TEMP 98.2
== END 2021-03-29 19:29 | disposition home or self-care (01) ==
LOC: JER 14:25
DX: R53.1 Weakness (principal)
CPT/HCPCS: 36415; 71045-TC-FY; 80053; 82010; 82803; 82962; 85025; 93005; 93010; 99284-25

== ENCOUNTER 2021-04-06 08:49 | Emergency (ER) | payer OTHER ==
[2021-04-06 09:06] VITALS: BMI 19.5
[2021-04-06] MEDS ORDERED: PROCHLORPERAZINE INJECTION 10 MG/2 ML VIAL IVPB ONE (09:14)
[2021-04-06] MEDS ORDERED: SODIUM CHLORIDE 0.9% 500 ML INFUS.BAG IV ONE (09:14)
[2021-04-06 09:57] LABS: BASO % 1.2 % (0-2.0); EOS % 0.6 % (0-4.5); HEMATOCRIT 41.2 % (32.4-45.2); HEMOGLOBIN 13.8 GM/dL (10.7-15.3); LYMPH % 20.4 % (8-40); MCH 28.5 pg (25.7-33.7); MCHC 33.4 g/dl (32.0-36.0); MEAN CELL VOLUME 85.4 fl (80-96); MEAN PLT VOLUME 8.7 fl (7.5-11.1); MONO % 6.2 % (3.8-10.2); NEUT % 71.6 % (42.8-82.8); PLATELET COUNT 364 K/MM3 (134-434); RBC 4.83 M/mm3 (3.60-5.2); RDW 14.2 % (11.6-15.6); WHITE BLOOD COUNT 6.2 K/mm3 (4.0-10.0)
[2021-04-06 09:59] LABS: VENOUS BASE EXCESS 1.5 mmol/L (-2-2); VENOUS PH 7.381 (7.310-7.410)
[2021-04-06 10:06] LABS: INR 0.94 (0.83-1.09); PROTHROMBIN TIME (PATIENT) 11.4 SEC (9.7-13.0)
[2021-04-06] MEDS ORDERED: ACETAMINOPHEN 1000 MG/100 ML VIAL (NON FORMULARY) IVPB ONE (10:11)
[2021-04-06 10:17] LABS: CHLORIDE 104 mmol/L (98-107); SODIUM 142 mmol/L (136-145)
[2021-04-06 10:19] LABS: CALCIUM 9.6 mg/dL (8.5-10.1)
[2021-04-06 10:20] LABS: ALBUMIN 4.1 g/dl (3.4-5.0); ANION GAP 9 MMOL/L (8-16); CO2 30 mmol/L (21-32); GLUCOSE,RANDOM 198 mg/dL (74-106); LIPASE 24 U/L (73-393)
[2021-04-06 10:22] LABS: CREATININE 0.6 mg/dL (0.55-1.3); PHOSPHOROUS 3.1 mg/dL (2.5-4.9); SGOT/AST 31 U/L (15-37); SGPT/ALT 24 U/L (13-61)
[2021-04-06 10:23] LABS: BILIRUBIN,TOTAL 0.7 mg/dL (0.2-1); TOT PROT 8.2 g/dl (6.4-8.2)
[2021-04-06] MEDS ORDERED: ACETAMINOPHEN INJECTION 100 ML IVPB ONE (10:23)
[2021-04-06 10:25] LABS: ALK PHOS 86 U/L (45-117)
[2021-04-06] MEDS ORDERED: HALOPERIDOL LACTATE 5 MG/ML IV ONE (11:39)
[2021-04-06] MEDS ORDERED: HALOPERIDOL LACTATE 5 MG/ML IM ONE (11:58)
[2021-04-06 14:32] VITALS: BP 137/86; PULSE 85; TEMP 97.6
== END 2021-04-06 14:08 | disposition home or self-care (01) ==
LOC: JER 08:49
PROC: 3E0333Z Introduction of Anti-inflammatory into Peripheral Vein, Percutaneous Approach (ICD-10-PCS; principal; 2021-04-06)
PROC: 3E033GC Introduction of Other Therapeutic Substance into Peripheral Vein, Percutaneous Approach (ICD-10-PCS; 2021-04-06)
DX: F12.188 Cannabis abuse with other cannabis-induced disorder (principal)
CPT/HCPCS: 36415; 71045-TC-FY; 80053; 82010; 82803; 82962; 83690; 83735; 84100; 84484; 84703; 85025; 85610; 93005; 93010; 96374; 96375; 99285-25; C9803; J0131; U0003; U0005

== ENCOUNTER 2021-05-08 10:00 | Emergency (ER) | payer OTHER ==
[2021-05-08 10:20] VITALS: BMI 17.7
[2021-05-08] MEDS ORDERED: SODIUM CHLORIDE 1,000 ML IV ONE (10:21)
[2021-05-08] MEDS ORDERED: PROCHLORPERAZINE INJECTION 10 MG/2 ML VIAL IVPB ONE (10:36)
[2021-05-08] MEDS ORDERED: PROCHLORPERAZINE INJECTION 10 MG/2 ML VIAL ONE (10:46)
[2021-05-08 10:50] LABS: BASO % 0.6 % (0-2.0); EOS % 0.5 % (0-4.5); HEMATOCRIT 41.5 % (32.4-45.2); HEMOGLOBIN 13.7 GM/dL (10.7-15.3); LYMPH % 15.9 % (8-40); MCH 27.8 pg (25.7-33.7); MEAN CELL VOLUME 84.4 fl (80-96); MEAN PLT VOLUME 8.7 fl (7.5-11.1); PLATELET COUNT 337 10^3/uL (134-434); RBC 4.92 M/mm3 (3.60-5.2); RDW 14.1 % (11.6-15.6)
[2021-05-08 10:55] LABS: VENOUS O2 SATURATION 47.5 % (70-80); VENOUS PH 7.435 (7.310-7.410)
[2021-05-08] MEDS ORDERED: ACETAMINOPHEN 1000 MG/100 ML VIAL (NON FORMULARY) IVPB ONE (10:56)
[2021-05-08 11:05] LABS: CALCIUM 9.6 mg/dL (8.5-10.1)
[2021-05-08 11:06] LABS: BLOOD UREA NITROGEN 8.6 mg/dL (7-18)
[2021-05-08 11:09] LABS: CREATININE 0.7 mg/dL (0.55-1.3)
[2021-05-08 11:10] LABS: TOT PROT 7.7 g/dl (6.4-8.2)
[2021-05-08] MEDS ORDERED: ACETAMINOPHEN INJECTION 100 ML IVPB ONE (11:14)
[2021-05-08 11:15] LABS: BILIRUBIN,TOTAL 1.1 mg/dL (0.2-1)
[2021-05-08] MEDS ORDERED: SODIUM CHLORIDE 1,000 ML IV STA (13:29)
[2021-05-08 16:54] LABS: URINE APPEARANCE CLEAR; URINE BILIRUBIN NEGATIVE (NEGATIVE); URINE COLOR YELLOW; URINE GLUCOSE (UA) 3+ (NEGATIVE); URINE KETONE 3+ (NEGATIVE); URINE LEUK ESTERASE NEGATIVE (NEGATIVE); URINE NITRITE NEGATIVE (NEGATIVE); URINE PROTEIN NEGATIVE (NEGATIVE)
[2021-05-08 17:15] VITALS: PULSE 102; TEMP 98.7
[2021-05-08] MEDS ORDERED: INSULIN REGULAR HUMAN 100 UNITS/ML *VIAL SQ ONE (18:18)
[2021-05-08] MEDS ORDERED: LABETALOL HCL 100 MG TABLET (FP) PO ONE (18:25)
[2021-05-08] MEDS ORDERED: LABETALOL HCL 100 MG TABLET (FP) ONE (18:36)
[2021-05-08 19:26] VITALS: BP 100/66
== END 2021-05-08 19:36 | disposition home or self-care (01) ==
LOC: JER 10:00
PROC: 3E0333Z Introduction of Anti-inflammatory into Peripheral Vein, Percutaneous Approach (ICD-10-PCS; principal; 2021-05-08)
PROC: 3E033GC Introduction of Other Therapeutic Substance into Peripheral Vein, Percutaneous Approach (ICD-10-PCS; 2021-05-08)
PROC: 3E0337Z Introduction of Electrolytic and Water Balance Substance into Peripheral Vein, Percutaneous Approach (ICD-10-PCS; 2021-05-08)
PROC: 3E0337Z Introduction of Electrolytic and Water Balance Substance into Peripheral Vein, Percutaneous Approach (ICD-10-PCS; 2021-05-08)
DX: R11.2 Nausea with vomiting, unspecified (principal); R73.9 Hyperglycemia, unspecified
CPT/HCPCS: 36415; 80053; 81003; 82010; 82803; 82962; 83690; 84703; 85025; 87529; 93005; 93010; 96361; 96374; 96375; 99284-25; J0131

== ENCOUNTER 2021-05-17 10:28 | Emergency (ER) | payer OTHER ==
[2021-05-17 10:43] VITALS: BMI 17.7
[2021-05-17] MEDS ORDERED: PROCHLORPERAZINE INJECTION 10 MG/2 ML VIAL IVPB ONE (11:17)
[2021-05-17] MEDS ORDERED: LACTATED RINGERS SOLUTION 1000 ML INFUS.BAG IV ONE ×2 (11:23→14:30)
[2021-05-17 11:32] LABS: EOS % 1.4 % (0-4.5); HEMATOCRIT 39.2 % (32.4-45.2); HEMOGLOBIN 13.2 GM/dL (10.7-15.3); LYMPH % 30.3 % (8-40); MCH 28.1 pg (25.7-33.7); MCHC 33.7 g/dl (32.0-36.0); MEAN CELL VOLUME 83.6 fl (80-96); MEAN PLT VOLUME 8.2 fl (7.5-11.1); MONO % 10.4 % (3.8-10.2); NEUT % 56.9 % (42.8-82.8); PLATELET COUNT 312 10^3/uL (134-434); RBC 4.69 M/mm3 (3.60-5.2); RDW 14.1 % (11.6-15.6)
[2021-05-17 11:33] LABS: VENOUS BASE EXCESS -0.4 mmol/L (-2-2); VENOUS O2 SATURATION 82.7 % (70-80); VENOUS PCO2 46.7 mmHg (38-52); VENOUS PH 7.356 (7.310-7.410)
[2021-05-17 11:52] LABS: CALCIUM 9.2 mg/dL (8.5-10.1)
[2021-05-17 11:53] LABS: BLOOD UREA NITROGEN 7.2 mg/dL (7-18)
[2021-05-17 11:56] LABS: CREATININE 0.7 mg/dL (0.55-1.3)
[2021-05-17 11:57] LABS: BILIRUBIN,TOTAL 0.9 mg/dL (0.2-1); TOT PROT 7.5 g/dl (6.4-8.2)
[2021-05-17] MEDS ORDERED: POTASSIUM CHLORIDE TABS 20 MEQ TABLET.ER (FP) PO ONE ×2 (12:11→12:38)
[2021-05-17] MEDS ORDERED: PROCHLORPERAZINE INJECTION 10 MG/2 ML VIAL ONE (12:21)
[2021-05-17] MEDS ORDERED: KETOROLAC TROMETHAMINE 15 MG/ML VIAL IVPUSH ONE (12:38)
[2021-05-17] MEDS ORDERED: KETOROLAC TROMETHAMINE 15 MG/ML VIAL ONE (12:41)
[2021-05-17] MEDS ORDERED: SODIUM CHLORIDE 0.9% 500 ML INFUS.BAG IV ONE (12:48)
[2021-05-17 15:16] VITALS: PULSE 82
[2021-05-17] MEDS ORDERED: LABETALOL HCL 100 MG TABLET (FP) PO ONE (15:37)
[2021-05-17] MEDS ORDERED: LABETALOL HCL 100 MG TABLET (FP) ONE (15:42)
[2021-05-17 15:57] VITALS: BP 150/103
== END 2021-05-17 15:57 | disposition home or self-care (01) ==
LOC: JER 10:28
PROC: 3E0333Z Introduction of Anti-inflammatory into Peripheral Vein, Percutaneous Approach (ICD-10-PCS; principal; 2021-05-17)
PROC: 3E033GC Introduction of Other Therapeutic Substance into Peripheral Vein, Percutaneous Approach (ICD-10-PCS; 2021-05-17)
DX: R11.2 Nausea with vomiting, unspecified (principal)
CPT/HCPCS: 36415; 80053; 82010; 82803; 82962; 83690; 84703; 85025; 93005; 93010; 96374; 96375; 99284-25

== ENCOUNTER 2022-06-29 04:20 | Day surgery (SDC) | payer OTHER ==
[2022-06-28 18:12] VITALS: BMI 15.7
[2022-06-29] MEDS ORDERED: DEXAMETHASONE SOD PHOSPHATE 4 MG/1 ML VIAL ONE (07:14)
[2022-06-29] MEDS ORDERED: BUPIVACAINE HCL/PF 0.75% 10 ML VIAL ONE (07:15)
[2022-06-29] MEDS ORDERED: LIDOCAINE HCL/PF 1% SDV 5ML VIAL ONE ×2 (07:15→14:23)
[2022-06-29 09:45] VITALS: RESP 20
[2022-06-29] MEDS ORDERED: LIDOCAINE HCL 1%, 10 MG/ML (50 mL VIAL) NR ONE (14:41)
[2022-06-29] MEDS ORDERED: BUPIVACAINE HCL/PF 0.75% 10 ML VIAL NR ONE (14:44)
[2022-06-29 16:15] VITALS: BP 113/84; PULSE 94; TEMP 97.1
== END 2022-06-29 15:04 | disposition home or self-care (01) ==
LOC: JASU-SURG 04:20
PROVIDERS: ATTEND Pain Medicine Pain Medicine
PROC: 3E0T33Z Introduction of Anti-inflammatory into Peripheral Nerves and Plexi, Percutaneous Approach (ICD-10-PCS; 2022-06-29)
PROC: 3E0T3BZ Introduction of Anesthetic Agent into Peripheral Nerves and Plexi, Percutaneous Approach (ICD-10-PCS; principal; 2022-06-29 10:00)
DX: M47.816 Spondylosis without myelopathy or radiculopathy, lumbar region (principal)
CPT/HCPCS: 76000-TC-FY; 81025; C9803-CS; U0003; U0005

== ENCOUNTER 2022-07-30 04:18 | Day surgery (SDC) | payer OTHER ==
[2022-07-28 14:17] VITALS: BMI 15.7
[2022-07-30] MEDS ORDERED: BUPIVACAINE HCL/PF 0.75% 10 ML VIAL PNB ONE ×2 (09:46→09:58)
[2022-07-30] MEDS ORDERED: LIDOCAINE HCL 1% PRESERVATIVE FREE - 30ML VIAL IJ ONE ×2 (09:47→09:58)
[2022-07-30 10:43] VITALS: BP 136/98; PULSE 115; RESP 20; TEMP 97.7
== END 2022-07-30 11:23 | disposition home or self-care (01) ==
LOC: JASU-SURG 04:18
PROVIDERS: ATTEND Pain Medicine Pain Medicine
PROC: BR16YZZ Fluoroscopy of Lumbar Facet Joint(s) using Other Contrast (ICD-10-PCS; 2022-07-30)
PROC: 3E0T3BZ Introduction of Anesthetic Agent into Peripheral Nerves and Plexi, Percutaneous Approach (ICD-10-PCS; principal; 2022-07-30 08:30)
DX: M47.816 Spondylosis without myelopathy or radiculopathy, lumbar region (principal)
CPT/HCPCS: 76000-TC-FY; 81025

== ENCOUNTER 2022-08-02 10:54 | Emergency (ER) | payer OTHER ==
[2022-08-02 11:22] VITALS: BMI 15.7
[2022-08-02] MEDS ORDERED: LABETALOL HCL 100 MG TABLET (FP) PO ONE (12:55)
[2022-08-02] MEDS ORDERED: LABETALOL HCL 100 MG TABLET (FP) ONE (12:57)
[2022-08-02 13:19] LABS: BASO % 0.8 % (0-2.0); HEMATOCRIT 44.2 % (32.4-45.2); HEMOGLOBIN 15.3 GM/dL (10.7-15.3); LYMPH % 31.5 % (8-40); MCH 30.2 pg (25.7-33.7); MCHC 34.6 g/dl (32.0-36.0); MEAN CELL VOLUME 87.3 fl (80-96); MEAN PLT VOLUME 9.6 fl (7.5-11.1); NEUT % 54.7 % (42.8-82.8); RBC 5.06 M/mm3 (3.60-5.2); RDW 13.9 % (11.6-15.6); WHITE BLOOD COUNT 4.6 K/mm3 (4.0-10.0)
[2022-08-02 13:28] LABS: INR 1.03 (0.83-1.09); PROTHROMBIN TIME (PATIENT) 11.9 SEC (9.7-13.0)
[2022-08-02 13:31] LABS: ACTIVATED PTT 26.4 SECONDS (25.2-36.5); VENOUS BASE EXCESS 6.3 mmol/L (-2-2); VENOUS O2 SATURATION 70.3 % (70-80); VENOUS PCO2 48.9 mmHg (38-52); VENOUS PH 7.433 (7.310-7.410)
[2022-08-02 13:51] LABS: ALBUMIN 4.3 g/dl (3.4-5.0); BLOOD UREA NITROGEN 6.8 mg/dL (7-18); CALCIUM 9.7 mg/dL (8.5-10.1)
[2022-08-02] MEDS ORDERED: SODIUM CHLORIDE 0.9% 500 ML INFUS.BAG IV ONE (13:52)
[2022-08-02 13:54] LABS: CREATININE 0.8 mg/dL (0.55-1.3)
[2022-08-02 13:55] LABS: TOT PROT 8.1 g/dl (6.4-8.2)
[2022-08-02 13:56] LABS: BILIRUBIN,TOTAL 1.1 mg/dL (0.2-1)
[2022-08-02 15:03] LABS: PLATELET COUNT 290 10^3/uL (134-434)
[2022-08-02 15:26] LABS: PH,URINE 7.5 (5.0-8.0); URINE APPEARANCE CLEAR; URINE BILIRUBIN NEGATIVE (NEGATIVE); URINE COLOR YELLOW; URINE GLUCOSE (UA) 2+ (NEGATIVE); URINE KETONE NEGATIVE (NEGATIVE); URINE LEUK ESTERASE NEGATIVE (NEGATIVE); URINE NITRITE NEGATIVE (NEGATIVE); URINE PROTEIN NEGATIVE (NEGATIVE)
[2022-08-02 16:17] VITALS: BP 128/76; PULSE 86; RESP 18; TEMP 98.2
== END 2022-08-02 16:17 | disposition home or self-care (01) ==
LOC: JER 10:54
DX: R73.9 Hyperglycemia, unspecified (principal)
CPT/HCPCS: 0241U-QW; 36415; 80053; 81003; 82010; 82803; 82962; 84703; 85025; 85610; 85730; 87086; 93005; 93010; 99284-25

== ENCOUNTER 2022-09-17 04:14 | Day surgery (SDC) | payer OTHER ==
[2022-09-16 09:41] VITALS: BMI 13.8
[2022-09-17] MEDS ORDERED: DEXAMETHASONE SOD PHOSPHATE 10 MG/1 ML VIAL ONE (07:23)
[2022-09-17] MEDS ORDERED: LIDOCAINE HCL/PF 1% SDV 5ML VIAL ONE (07:23)
[2022-09-17] MEDS ORDERED: BUPIVACAINE HCL/PF 0.75% 10 ML VIAL ONE (07:23)
[2022-09-17] MEDS ORDERED: LIDOCAINE HCL/PF 2% SDV 5ML VIAL ONE (07:31)
[2022-09-17 09:49] VITALS: RESP 18
[2022-09-17] MEDS ORDERED: LIDOCAINE 1% P/F 10 MG/ML VIAL INF ONE (11:41)
[2022-09-17] MEDS ORDERED: LIDOCAINE HCL/PF 2% SDV 5ML VIAL INF ONE (11:43)
[2022-09-17] MEDS ORDERED: BUPIVACAINE HCL/PF 0.75% 10 ML VIAL NR ONE (12:01)
[2022-09-17] MEDS ORDERED: DEXAMETHASONE SOD PHOSPHATE 10 MG/1 ML VIAL IVPUSH ONE (12:05)
[2022-09-17 14:52] VITALS: BP 121/93; PULSE 92; TEMP 98.9
== END 2022-09-17 12:47 | disposition home or self-care (01) ==
LOC: JASU-SURG 04:14
PROVIDERS: ATTEND Pain Medicine Pain Medicine
PROC: 3E0T3TZ Introduction of Destructive Agent into Peripheral Nerves and Plexi, Percutaneous Approach (ICD-10-PCS; principal; 2022-09-17 11:00)
PROC: BR16YZZ Fluoroscopy of Lumbar Facet Joint(s) using Other Contrast (ICD-10-PCS; 2022-09-17 11:00)
DX: M47.816 Spondylosis without myelopathy or radiculopathy, lumbar region (principal); E10.9 Type 1 diabetes mellitus without complications; Z79.4 Long term (current) use of insulin
CPT/HCPCS: 76000-TC-FY; 81025; J1100

== ENCOUNTER → 2022-10-22 | Day surgery (SDC) | payer OTHER ==
[2022-10-21 10:21] VITALS: BMI 13.8
[~2022-10-22] MED LIST changes: +BUPIVACAINE HCL/PF 0.75% 10 ML VIAL ONE; +DEXAMETHASONE SOD PHOSPHATE 10 MG/1 ML VIAL ONE; -ELECTROLYTE-148 SOLN 1,000 ML IV SCH; -KCL 10 MEQ IVPB 10 MEQ/100 ML INFUS.BAG IVPB SCH; +LIDOCAINE HCL/PF 1% SDV 5ML VIAL ONE; +LIDOCAINE HCL/PF 2% SDV 5ML VIAL ONE; -MAGNESIUM SULFATE IN WATER 2 GM/50 ML IVPB IVPB ONE
== END | disposition home or self-care (01) ==
LOC: JASU-SURG 04:12
PROVIDERS: ATTEND Pain Medicine Pain Medicine
DX: Z53.9 Procedure and treatment not carried out, unspecified reason (principal)
CPT/HCPCS: J1100

== ENCOUNTER 2022-12-31 18:17 | Emergency (ER) | payer OTHER ==
[2022-12-31 18:38] VITALS: BMI 15.2
[2022-12-31 18:39] VITALS: TEMP 98.3
[2022-12-31] MEDS ORDERED: morphine CARPU-JECT 4 MG/1 ML DISP.SYRIN IVPUSH ONE ×2 (19:24→19:48)
[2022-12-31] MEDS ORDERED: SODIUM CHLORIDE 0.9% 500 ML INFUS.BAG IV ONE ×3 (19:24→23:54)
[2022-12-31] MEDS ORDERED: HALOPERIDOL LACTATE 5 MG/ML IM ONE ×2 (19:28→19:49)
[2022-12-31] MEDS ORDERED: morphine SULFATE 4 MG/ML VIAL ONE (19:48)
[2022-12-31 20:17] LABS: BASO % 0.4 % (0-2.0); EOS % 0.3 % (0-4.5); HEMATOCRIT 40.4 % (32.4-45.2); LYMPH % 17.5 % (8-40); MCH 29.2 pg (25.7-33.7); MCHC 34.7 g/dl (32.0-36.0); MEAN CELL VOLUME 84.1 fl (80-96); MONO % 8.7 % (3.8-10.2); NEUT % 73.1 % (42.8-82.8); RDW 13.2 % (11.6-15.6); WHITE BLOOD COUNT 7.2 K/mm3 (4.0-10.0)
[2022-12-31 20:19] LABS: VENOUS BASE EXCESS 7.8 mmol/L (-2-2); VENOUS O2 SATURATION 75.8 % (70-80); VENOUS PCO2 35.5 mmHg (38-52); VENOUS PH 7.549 (7.310-7.410)
[2022-12-31 20:25] LABS: INR 0.99 (0.83-1.09); PROTHROMBIN TIME (PATIENT) 11.5 SEC (9.7-13.0)
[2022-12-31 20:28] LABS: ACTIVATED PTT 24.1 SECONDS (25.2-36.5)
[2022-12-31 20:47] LABS: LACTIC ACID 4.3 mmol/L (0.4-2.0)
[2022-12-31 21:32] LABS: CHLORIDE 78 mmol/L (98-107); SODIUM 125 mmol/L (136-145)
[2022-12-31 21:34] LABS: MAGNESIUM 1.7 mg/dL (1.8-2.4)
[2022-12-31 21:35] LABS: CALCIUM 10.4 mg/dL (8.5-10.1); LIPASE 113 U/L (73-393)
[2022-12-31 21:36] LABS: ALBUMIN 4.3 g/dl (3.4-5.0); ANION GAP 18 MMOL/L (8-16); CO2 29 mmol/L (21-32)
[2022-12-31 21:38] LABS: CREATININE 1.4 mg/dL (0.55-1.3); SGOT/AST 30 U/L (15-37); SGPT/ALT 54 U/L (13-61)
[2022-12-31 21:39] LABS: PHOSPHOROUS 3.2 mg/dL (2.5-4.9); TOT PROT 7.7 g/dl (6.4-8.2)
[2022-12-31 21:41] LABS: ALK PHOS 93 U/L (45-117); BILIRUBIN,TOTAL 1.2 mg/dL (0.2-1)
[2022-12-31 21:42] LABS: GLUCOSE,RANDOM 628 mg/dL (74-106)
[2022-12-31] MEDS ORDERED: MAGNESIUM SULF 50% (8.12 MEQ/2 ML-1 GM VIAL) IVPB ONE (21:57)
[2022-12-31] MEDS ORDERED: MAGNESIUM SULFATE IN WATER 2 GM/50 ML IVPB IVPB ONE (22:01)
[2022-12-31 23:18] VITALS: RESP 14
[2022-12-31 23:46] LABS: CHLORIDE 91 mmol/L (98-107); SODIUM 133 mmol/L (136-145)
[2022-12-31 23:49] LABS: ANION GAP 6 MMOL/L (8-16); CO2 36 mmol/L (21-32)
[2022-12-31 23:50] LABS: BLOOD UREA NITROGEN 13.1 mg/dL (7-18)
[2022-12-31 23:53] LABS: CREATININE 0.8 mg/dL (0.55-1.3)
[2022-12-31 23:55] LABS: CALCIUM 8.5 mg/dL (8.5-10.1); GLUCOSE,RANDOM 426 mg/dL (74-106)
[2023-01-01] MEDS: KCL 10 MEQ IVPB 10 MEQ/100 ML INFUS.BAG IVPB SCH ×3 (00:13→02:17)
[2023-01-01] MEDS ORDERED: morphine CARPU-JECT 4 MG/1 ML DISP.SYRIN IVPUSH ONE ×2 (03:18→03:37)
[2023-01-01 03:33] VITALS: BP 145/112; PULSE 108
== END 2023-01-01 05:02 | disposition short-term general hospital (02) ==
LOC: JER 18:17
PROC: 3E033GC Introduction of Other Therapeutic Substance into Peripheral Vein, Percutaneous Approach (ICD-10-PCS; principal; 2022-12-31)
DX: K56.2 Volvulus (principal)
CPT/HCPCS: 0241U-QW; 36415; 74177-TC; 80048; 80053; 82010; 82803; 82962; 83605; 83690; 83735; 84100; 84484; 84703; 85025; 85610; 85730; 86850; 86900; 86901; 93005; 93010; 96361; 96374; 96375; 96376; 99285-25; Q9967

== ENCOUNTER 2023-01-23 22:13 | Emergency (ER) | payer OTHER ==
[2023-01-23] MEDS ORDERED: levETIRAcetam 500 MG/5 ML INJECTION VIAL IVPB ONE ×4 (22:18→22:50)
[2023-01-23] MEDS ORDERED: RAPID SEQUENCE INTUBATION KIT NR ONE (22:22)
[2023-01-23 22:24] VITALS: BMI 15.0
[2023-01-23] MEDS ORDERED: PROPOFOL 1,000,000 MCG/100 ML VIAL ONE (22:34)
[2023-01-23] MEDS ORDERED: VALPROATE SODIUM 500 MG/5 ML VIAL IVPB ONE (22:40)
[2023-01-23 22:45] VITALS: RESP 12
[2023-01-23] MEDS ORDERED: FOSPHENYTOIN SODIUM 1,000 MG in SODIUM CHLORIDE 100 ML IVPB ONE (22:45)
[2023-01-23] MEDS ORDERED: SODIUM CHLORIDE 0.9% 500 ML INFUS.BAG IV ONE ×3 (22:57→23:31)
[2023-01-23] MEDS ORDERED: LORazepam 2 MG/ML SDV VIAL IVPUSH STA (22:58)
[2023-01-23 23:09] LABS: VENOUS BASE EXCESS -18.8 mmol/L (-2-2); VENOUS O2 SATURATION 29.3 % (70-80)
[2023-01-23 23:10] LABS: INR 0.96 (0.83-1.09); PROTHROMBIN TIME (PATIENT) 11.1 SEC (9.7-13.0); VENOUS PH 6.869 (7.310-7.410)
[2023-01-23 23:11] LABS: VENOUS PCO2 88.4 mmHg (38-52)
[2023-01-23 23:13] LABS: ACTIVATED PTT 27.5 SECONDS (25.2-36.5)
[2023-01-23 23:14] LABS: CHLORIDE 84 mmol/L (98-107)
[2023-01-23 23:16] LABS: BLOOD UREA NITROGEN 21.2 mg/dL (7-18); CALCIUM 8.4 mg/dL (8.5-10.1); CO2 18 mmol/L (21-32)
[2023-01-23 23:19] LABS: SGOT/AST 66 U/L (15-37); SGPT/ALT 130 U/L (13-61)
[2023-01-23 23:21] LABS: BILIRUBIN,TOTAL 0.5 mg/dL (0.2-1); TOT PROT 7.8 g/dl (6.4-8.2)
[2023-01-23 23:22] LABS: ALK PHOS 133 U/L (45-117)
[2023-01-23 23:25] LABS: ANION GAP 13 MMOL/L (8-16); GLUCOSE,RANDOM 2029 mg/dL (74-106); SODIUM 116 mmol/L (136-145)
[2023-01-23 23:33] LABS: URINE APPEARANCE CLEAR; URINE BILIRUBIN NEGATIVE (NEGATIVE); URINE COLOR YELLOW; URINE GLUCOSE (UA) 3+ (NEGATIVE); URINE KETONE NEGATIVE (NEGATIVE); URINE LEUK ESTERASE NEGATIVE (NEGATIVE); URINE NITRITE NEGATIVE (NEGATIVE); URINE PROTEIN NEGATIVE (NEGATIVE); URINE UROBILINOGEN 0.2 mg/dL (0.2-1.0)
[2023-01-23 23:40] LABS: COCAINE, UR NEGATIVE (NEGATIVE); METHADONE, UR NEGATIVE (NEGATIVE); PHENCYCLIDINE,URINE NEGATIVE (NEGATIVE)
[2023-01-23 23:41] LABS: OPIATES, URI NEGATIVE (NEGATIVE); URINE BARBITURATES NEGATIVE (NEGATIVE)
[2023-01-23] MEDS ORDERED: INSULIN REGULAR 100 UNITS in SODIUM CHLORIDE 99 ML IVPB SCH (23:45)
[2023-01-23 23:46] LABS: URINE AMPHETAMINES NEGATIVE (NEGATIVE); URINE BENZODIAZEPINES POSITIVE (NEGATIVE)
[2023-01-23] MEDS ORDERED: INSULIN REGULAR HUMAN 100 UNITS/ML *VIAL* (FOR IVP) IVPUSH ONE (23:51)
[2023-01-23 23:57] LABS: BASO % 0.3 % (0-2.0); HEMOGLOBIN 11.3 GM/dL (10.7-15.3); LYMPH % 5.8 % (8-40); MCH 27.9 pg (25.7-33.7); MCHC 25.7 g/dl (32.0-36.0); MEAN CELL VOLUME 108.5 fl (80-96); MEAN PLT VOLUME 8.7 fl (7.5-11.1); MONO % 11.2 % (3.8-10.2); NEUT % 82.7 % (42.8-82.8); PLATELET COUNT 381 10^3/uL (134-434); RBC 4.06 M/mm3 (3.60-5.2); RDW 15.4 % (11.6-15.6); WHITE BLOOD COUNT 5.9 K/mm3 (4.0-10.0)
[2023-01-24] MEDS ORDERED: SODIUM CHLORIDE 0.45% 1,000 ML IV SCH (00:15)
[2023-01-24] MEDS ORDERED: FENTANYL NS IVPB 500 MCG/100 ML BAG IVPB SCH (00:30)
[2023-01-24] MEDS ORDERED: MIDAZOLAM HCL 2 MG/2 ML SINGLE DOSE VIAL IVPUSH ONE (00:30)
[2023-01-24 00:38] VITALS: BP 199/123; PULSE 118; TEMP 97
[2023-01-24] MEDS ORDERED: MIDAZOLAM HCL 2 MG/2 ML SINGLE DOSE VIAL ONE (00:41)
[2023-01-24] MEDS ORDERED: PROPOFOL 1,000,000 MCG/100 ML VIAL IVPB SCH (00:45)
[2023-01-24 00:48] LABS: ARTERIAL BLD GAS O2 SATURATION 99.2 % (95-98); ARTERIAL BLOOD GAS BASE EXCESS -15.9 mmol/L (-2-2); ARTERIAL BLOOD GAS PO2 218.3 mmHg (80-100)
[2023-01-24] MEDS ORDERED: FENTANYL NS IVPB 500 MCG/100 ML BAG IVPB ONE (00:57)
[2023-01-24] MEDS ORDERED: SODIUM CHLORIDE 0.9% 500 ML INFUS.BAG IV ONE (00:59)
[2023-01-24 01:15] LABS: CHLORIDE 102 mmol/L (98-107); SODIUM 133 mmol/L (136-145)
[2023-01-24 01:17] LABS: CALCIUM 8.8 mg/dL (8.5-10.1)
[2023-01-24 01:18] LABS: ANION GAP 17 MMOL/L (8-16); BLOOD UREA NITROGEN 17.7 mg/dL (7-18); CO2 14 mmol/L (21-32)
[2023-01-24 01:21] LABS: CREATININE 1.6 mg/dL (0.55-1.3)
[2023-01-24 01:32] LABS: GLUCOSE,RANDOM 1212 mg/dL (74-106)
[2023-01-24 01:47] LABS: ANISOCYTOSIS 0; MACROCYTOSIS 0; TEAR DROP CELLS 1+
== END 2023-01-24 01:24 | disposition short-term general hospital (02) ==
LOC: JER 22:13
PROC: 0BH17EZ Insertion of Endotracheal Airway into Trachea, Via Natural or Artificial Opening (ICD-10-PCS; principal; 2023-01-23)
PROC: 3E033GC Introduction of Other Therapeutic Substance into Peripheral Vein, Percutaneous Approach (ICD-10-PCS; 2023-01-23)
PROC: 3E033GC Introduction of Other Therapeutic Substance into Peripheral Vein, Percutaneous Approach (ICD-10-PCS; 2023-01-23)
PROC: 3E033GC Introduction of Other Therapeutic Substance into Peripheral Vein, Percutaneous Approach (ICD-10-PCS; 2023-01-23)
PROC: 3E033GC Introduction of Other Therapeutic Substance into Peripheral Vein, Percutaneous Approach (ICD-10-PCS; 2023-01-23)
DX: E11.65 Type 2 diabetes mellitus with hyperglycemia (principal); R56.9 Unspecified convulsions
CPT/HCPCS: 36415; 36600; 70450-TC; 71045-TC-FY; 72125-TC; 80048; 80053; 80307; 81003; 82550; 82553; 82803; 82962; 83605; 84484; 84703; 85025; 85610; 85730; 86850; 86900; 86901; 87040; 87086; 93005; 93010; 99291

== ENCOUNTER 2023-04-02 10:00 | Observation (INO) | payer OTHER ==
[2023-04-02] MEDS ORDERED: DEXTROSE 50%-WATER 25 GM/50 ML DISP.SYRIN ONE (10:03)
[2023-04-02] MEDS ORDERED: DEXTROSE 50%-WATER - 25 GM/50 ML VIAL IVPUSH ONE ×2 (10:07→10:27)
[2023-04-02] MEDS ORDERED: GlUCAGON HUMAN RECOMBINANT 1 MG/VIAL IM ONE (10:08)
[2023-04-02] MEDS ORDERED: SODIUM CHLORIDE 1,000 ML IV STA (10:13)
[2023-04-02] MEDS ORDERED: DEXTROSE 50%-WATER - 25 GM/50 ML VIAL IVPUSH PRN (10:13)
[2023-04-02] MEDS ORDERED: INSULIN REGULAR 100 UNITS in SODIUM CHLORIDE 99 ML IVPB SCH (10:15)
[2023-04-02 10:25] LABS: VENOUS BASE EXCESS 0.2 mmol/L (-2-2); VENOUS O2 SATURATION 55.6 % (70-80); VENOUS PCO2 63.3 mmHg (38-52); VENOUS PH 7.271 (7.310-7.410)
[2023-04-02 10:36] LABS: BASO % 0.9 % (0-2.0); EOS % 1.5 % (0-4.5); HEMATOCRIT 34.6 % (32.4-45.2); HEMOGLOBIN 11.5 GM/dL (10.7-15.3); LYMPH % 31.7 % (8-40); MCH 26.3 pg (25.7-33.7); MCHC 33.3 g/dl (32.0-36.0); MEAN CELL VOLUME 79.2 fl (80-96); NEUT % 54.9 % (42.8-82.8); PLATELET COUNT 334 10^3/uL (134-434); RBC 4.37 M/mm3 (3.60-5.2); RDW 15.8 % (11.6-15.6); WHITE BLOOD COUNT 6.8 K/mm3 (4.0-10.0)
[2023-04-02 10:38] LABS: INR 0.92 (0.83-1.09); PROTHROMBIN TIME (PATIENT) 10.7 SEC (9.7-13.0)
[2023-04-02 10:39] LABS: URINE APPEARANCE CLEAR; URINE BILIRUBIN NEGATIVE (NEGATIVE); URINE COLOR YELLOW; URINE GLUCOSE (UA) 3+ (NEGATIVE); URINE KETONE NEGATIVE (NEGATIVE); URINE LEUK ESTERASE NEGATIVE (NEGATIVE); URINE NITRITE NEGATIVE (NEGATIVE); URINE PROTEIN NEGATIVE (NEGATIVE); URINE UROBILINOGEN 0.2 mg/dL (0.2-1.0)
[2023-04-02 10:40] LABS: ACTIVATED PTT 26.7 SECONDS (25.2-36.5)
[2023-04-02 10:46] LABS: POTASSIUM 3.2 mmol/L (3.5-5.1)
[2023-04-02 10:49] LABS: ALBUMIN 3.4 g/dl (3.4-5.0); BLOOD UREA NITROGEN 14.9 mg/dL (7-18)
[2023-04-02 10:52] LABS: CREATININE 0.6 mg/dL (0.55-1.3)
[2023-04-02 10:54] LABS: BILIRUBIN,TOTAL 0.2 mg/dL (0.2-1); TOT PROT 7.2 g/dl (6.4-8.2)
[2023-04-02 10:56] LABS: OPIATES, URI NEGATIVE (NEGATIVE)
[2023-04-02 10:57] LABS: METHADONE, UR NEGATIVE (NEGATIVE); PHENCYCLIDINE,URINE NEGATIVE (NEGATIVE); URINE BARBITURATES NEGATIVE (NEGATIVE); URINE BENZODIAZEPINES NEGATIVE (NEGATIVE)
[2023-04-02 10:59] LABS: COCAINE, UR NEGATIVE (NEGATIVE); URINE AMPHETAMINES POSITIVE (NEGATIVE)
[2023-04-02] MEDS ORDERED: SODIUM CHLORIDE 0.9% 500 ML INFUS.BAG IV ONE (12:06)
[2023-04-02] MEDS ORDERED: KCL 10 MEQ IVPB 10 MEQ/100 ML INFUS.BAG IVPB ONE (12:19)
[2023-04-02] MEDS: KCL 10 MEQ IVPB 10 MEQ/100 ML INFUS.BAG IVPB SCH ×3 (12:41→17:47)
[2023-04-02] MEDS ORDERED: clonazePAM 0.5 MG TABLET PO PRN (13:38)
[2023-04-02] MEDS ORDERED: LACTATED RINGERS SOLUTION 1,000 ML/1,000 ML INFUS.BAG IV SCH ×2 (13:45→17:30)
[2023-04-02] MEDS ORDERED: clonazePAM 0.5 MG TABLET ONE (13:54)
[2023-04-02] MEDS ORDERED: clonazePAM 0.5 MG TABLET PO ONE (13:55)
[2023-04-02 15:24] VITALS: RESP 20
[2023-04-02 15:58] VITALS: BMI 15.5
[2023-04-02] MEDS ORDERED: INSULIN (NOVOLOG) ASPART 100 UNITS/ML 10ML VIAL SQ SCH (16:30)
[2023-04-02] MEDS ORDERED: INSULIN SLIDING SCALE (NOVOLOG) 1 VIAL SQ SCH (16:30)
[2023-04-02] MEDS ORDERED: INSULIN REGULAR HUMAN 100 UNITS/ML *VIAL IVPUSH ONE (17:20)
[2023-04-02] MEDS ORDERED: KETOROLAC TROMETHAMINE 15 MG/ML VIAL IVPUSH PRN (17:21)
[2023-04-02] MEDS ORDERED: KCL 10 MEQ IVPB 10 MEQ/100 ML INFUS.BAG IVPB SCH (17:45)
[2023-04-02] MEDS ORDERED: INSULIN (NOVOLOG) ASPART 100 UNITS/ML 10ML VIAL ONE (21:20)
[2023-04-02 21:26] VITALS: BP 141/102; PULSE 107; TEMP 97.6
[2023-04-02] MEDS ORDERED: levETIRAcetam 250 MG TABLET PO SCH (22:00)
[2023-04-02] MEDS ORDERED: MIRTAZAPINE 15 MG TABLET (FP) PO SCH (22:00)
[2023-04-02] MEDS ORDERED: INSULIN (LEVEMIR) 100 UNITS/ML UNITS SQ SCH (22:00)
[2023-04-03] MEDS ORDERED: DULoxetine HCL 60 MG CAPSULE.DR PO SCH (10:00)
== END 2023-04-02 21:00 | disposition left against medical advice (07) ==
LOC: JER 10:00 → UNDOADMOB 12:39 → JERBED 12:39 → INTOOBSV 12:39 → JERBED 13:38 → J4W 14:35
PROVIDERS: ADMIT Internal Medicine; ATTEND Internal Medicine
PROC: 3E033GC Introduction of Other Therapeutic Substance into Peripheral Vein, Percutaneous Approach (ICD-10-PCS; principal; 2023-04-02)
PROC: 3E023GC Introduction of Other Therapeutic Substance into Muscle, Percutaneous Approach (ICD-10-PCS; 2023-04-02)
PROC: 3E013VG Introduction of Insulin into Subcutaneous Tissue, Percutaneous Approach (ICD-10-PCS; 2023-04-02)
PROC: 3E0337Z Introduction of Electrolytic and Water Balance Substance into Peripheral Vein, Percutaneous Approach (ICD-10-PCS; 2023-04-02)
DX: G93.41 Metabolic encephalopathy (principal); G40.909 Epilepsy, unspecified, not intractable, without status epilepticus; E10.8 Type 1 diabetes mellitus with unspecified complications; F32.A Depression, unspecified; J45.909 Unspecified asthma, uncomplicated; F12.90 Cannabis use, unspecified, uncomplicated; F19.90 Other psychoactive substance use, unspecified, uncomplicated; G25.82 Stiff-man syndrome; K31.84 Gastroparesis; Z87.898 Personal history of other specified conditions; Z91.013 Allergy to seafood; Z88.8 Allergy status to other drugs, medicaments and biological substances
CPT/HCPCS: 0241U-QW; 36415; 70450-TC; 71045-TC-FY; 80053; 80177; 80307; 81003; 82010; 82550; 82803; 82962; 83036; 83735; 84100; 84443; 84484; 84703; 85025; 85610; 85730; 87040; 87086; 93005; 93010; 96361; 96372; 96374; 96375; 99291; G0378

== ENCOUNTER 2023-05-23 00:41 | Emergency (ER) | payer OTHER ==
[2023-05-23 00:43] VITALS: RESP 18; BMI 19.5
[2023-05-23] MEDS ORDERED: ACETAMINOPHEN 1000 MG/100 ML BAG IVPB ONE (01:07)
[2023-05-23] MEDS ORDERED: clonazePAM 0.5 MG TABLET PO ONE (01:07)
[2023-05-23 01:17] VITALS: TEMP 98.1
[2023-05-23] MEDS ORDERED: ACETAMINOPHEN INJECTION 100 ML IVPB ONE (01:26)
[2023-05-23] MEDS ORDERED: clonazePAM 2 MG TABLET ONE (01:26)
[2023-05-23] MEDS ORDERED: clonazePAM 0.5 MG TABLET ONE (01:28)
[2023-05-23 01:44] LABS: BASO % 1.1 % (0-2.0); EOS % 1.6 % (0-4.5); HEMATOCRIT 40.5 % (32.4-45.2); HEMOGLOBIN 13.1 GM/dL (10.7-15.3); LYMPH % 39.6 % (8-40); MCH 25.9 pg (25.7-33.7); MCHC 32.4 g/dl (32.0-36.0); MEAN CELL VOLUME 79.8 fl (80-96); MONO % 11.6 % (3.8-10.2); NEUT % 46.1 % (42.8-82.8); PLATELET COUNT 366 10^3/uL (134-434); RBC 5.07 M/mm3 (3.60-5.2); RDW 18.3 % (11.6-15.6); WHITE BLOOD COUNT 5.4 K/mm3 (4.0-10.0)
[2023-05-23 01:54] LABS: VENOUS O2 SATURATION 41.3 % (70-80); VENOUS PCO2 47.9 mmHg (38-52); VENOUS PH 7.409 (7.310-7.410)
[2023-05-23 02:10] LABS: POTASSIUM 3.5 mmol/L (3.5-5.1)
[2023-05-23 02:12] LABS: MAGNESIUM 1.9 mg/dL (1.8-2.4)
[2023-05-23 02:13] LABS: BLOOD UREA NITROGEN 14.3 mg/dL (7-18)
[2023-05-23 02:16] LABS: CREATININE 0.8 mg/dL (0.55-1.3); PHOSPHOROUS 3.1 mg/dL (2.5-4.9)
[2023-05-23 02:17] LABS: BILIRUBIN,TOTAL 0.9 mg/dL (0.2-1); TOT PROT 8.1 g/dl (6.4-8.2)
[2023-05-23 02:29] LABS: CALCIUM 10.1 mg/dL (8.5-10.1)
[2023-05-23] MEDS ORDERED: LORazepam 2 MG/ML SDV VIAL IVPUSH ONE (02:39)
[2023-05-23 04:52] VITALS: BP 101/71; PULSE 77
[2023-05-23] MEDS ORDERED: DEXTROSE 50%-WATER 25 GM/50 ML DISP.SYRIN ONE (06:33)
[2023-05-23] MEDS ORDERED: DEXTROSE 50%-WATER - 25 GM/50 ML VIAL IVPUSH ONE (06:36)
== END 2023-05-23 06:56 | disposition home or self-care (01) ==
LOC: JER 00:41
PROC: 3E033NZ Introduction of Analgesics, Hypnotics, Sedatives into Peripheral Vein, Percutaneous Approach (ICD-10-PCS; principal; 2023-05-23)
PROC: 3E033GC Introduction of Other Therapeutic Substance into Peripheral Vein, Percutaneous Approach (ICD-10-PCS; 2023-05-23)
PROC: 3E033GC Introduction of Other Therapeutic Substance into Peripheral Vein, Percutaneous Approach (ICD-10-PCS; 2023-05-23)
DX: R06.02 Shortness of breath (principal); F41.9 Anxiety disorder, unspecified; R23.2 Flushing; R06.00 Dyspnea, unspecified; Z20.822 Contact with and (suspected) exposure to COVID-19
CPT/HCPCS: 0241U-QW; 36415; 71046-TC-FY; 71275-TC; 80053; 82010; 82803; 82962; 83735; 84100; 84484; 84703; 85025; 93005; 93010; 96374; 96375; 99285-25; Q9967

== ENCOUNTER 2023-06-04 11:38 | Inpatient (IN) | payer OTHER ==
[2023-06-04] MEDS ORDERED: MIDAZOLAM HCL 2 MG/2 ML SINGLE DOSE VIAL ONE (11:56)
[2023-06-04] MEDS ORDERED: MIDAZOLAM HCL 2 MG/2 ML SINGLE DOSE VIAL IVPUSH ONE (11:56)
[2023-06-04] MEDS ORDERED: MIDAZOLAM HCL 2 MG/2 ML SINGLE DOSE VIAL IM ONE (11:56)
[2023-06-04] MEDS ORDERED: levETIRAcetam 500 MG/5 ML INJECTION VIAL IVPB ONE ×2 (12:08→12:14)
[2023-06-04 12:57] LABS: BASO % 0.4 % (0-2.0); EOS % 0.6 % (0-4.5); HEMATOCRIT 20.2 % (32.4-45.2); LYMPH % 11.8 % (8-40); MCH 25.6 pg (25.7-33.7); MCHC 30.4 g/dl (32.0-36.0); MEAN PLT VOLUME 7.4 fl (7.5-11.1); MONO % 7.7 % (3.8-10.2); NEUT % 79.5 % (42.8-82.8); PLATELET COUNT 234 10^3/uL (134-434); RBC 2.41 M/mm3 (3.60-5.2); RDW 17.8 % (11.6-15.6); WHITE BLOOD COUNT 4.3 K/mm3 (4.0-10.0)
[2023-06-04 13:01] LABS: HEMOGLOBIN 6.2 GM/dL (10.7-15.3); INR 1.96 (0.83-1.09); PROTHROMBIN TIME (PATIENT) 22.6 SEC (9.7-13.0)
[2023-06-04 13:03] LABS: ACTIVATED PTT 31.2 SECONDS (25.2-36.5)
[2023-06-04 13:04] LABS: VENOUS BASE EXCESS -16.3 mmol/L (-2-2); VENOUS O2 SATURATION 87.9 % (70-80); VENOUS PCO2 < 16.7 mmHg (38-52); VENOUS PH 7.338 (7.310-7.410)
[2023-06-04 13:14] LABS: CHLORIDE 124 mmol/L (98-107); SODIUM 151 mmol/L (136-145)
[2023-06-04 13:16] LABS: CO2 17 mmol/L (21-32); GLUCOSE,RANDOM 105 mg/dL (74-106)
[2023-06-04 13:19] LABS: CREATININE 0.4 mg/dL (0.55-1.3); PHOSPHOROUS 1.3 mg/dL (2.5-4.9); SGOT/AST 16 U/L (15-37); SGPT/ALT 22 U/L (13-61)
[2023-06-04 13:21] LABS: BILIRUBIN,TOTAL 0.2 mg/dL (0.2-1)
[2023-06-04 13:36] LABS: ALBUMIN 1.9 g/dl (3.4-5.0); ALK PHOS 53 U/L (45-117); ANION GAP 9 MMOL/L (8-16); MAGNESIUM 0.9 mg/dL (1.8-2.4); POTASSIUM 2.3 mmol/L (3.5-5.1); TOT PROT 3.8 g/dl (6.4-8.2)
[2023-06-04 15:29] LABS: BASO % 0.9 % (0-2.0); EOS % 0.4 % (0-4.5); HEMATOCRIT 36.5 % (32.4-45.2); HEMOGLOBIN 11.7 GM/dL (10.7-15.3); LYMPH % 12.6 % (8-40); MCH 26.1 pg (25.7-33.7); MCHC 32.1 g/dl (32.0-36.0); MEAN CELL VOLUME 81.3 fl (80-96); MEAN PLT VOLUME 7.8 fl (7.5-11.1); MONO % 6.9 % (3.8-10.2); NEUT % 79.2 % (42.8-82.8); PLATELET COUNT 463 10^3/uL (134-434); RDW 17.8 % (11.6-15.6); WHITE BLOOD COUNT 8.3 K/mm3 (4.0-10.0)
[2023-06-04 15:40] LABS: INR 0.95 (0.83-1.09)
[2023-06-04 15:44] LABS: POTASSIUM 4.1 mmol/L (3.5-5.1)
[2023-06-04 15:46] LABS: BLOOD UREA NITROGEN 15.1 mg/dL (7-18); MAGNESIUM 1.9 mg/dL (1.8-2.4)
[2023-06-04 15:50] LABS: CREATININE 0.6 mg/dL (0.55-1.3)
[2023-06-04 15:51] LABS: BILIRUBIN,TOTAL 0.7 mg/dL (0.2-1)
[2023-06-04 15:52] LABS: ALBUMIN 3.9 g/dl (3.4-5.0); CALCIUM 9.8 mg/dL (8.5-10.1); TOT PROT 7.7 g/dl (6.4-8.2)
[2023-06-04] MEDS ORDERED: LORazepam 2 MG/ML SDV VIAL IVPUSH ONE (15:53)
[2023-06-04] MEDS ORDERED: DEXTROSE 5%-NORMAL SALINE 1,000 ML IV SCH (17:00)
[2023-06-04] MEDS: INSULIN SLIDING SCALE (NOVOLOG) 1 VIAL SQ SCH ×2 (19:51→23:59)
[2023-06-04] MEDS: levETIRAcetam 500 MG/5 ML INJECTION VIAL IVPB SCH (22:54)
[2023-06-04] MEDS: LORazepam 2 MG/ML SDV VIAL IVPUSH PRN (22:54)
[2023-06-05] MEDS: INSULIN SLIDING SCALE (NOVOLOG) 1 VIAL SQ SCH ×4 (06:34→22:39)
[2023-06-05 08:56] LABS: BASO % 1.1 % (0-2.0); EOS % 0.9 % (0-4.5); HEMATOCRIT 35.2 % (32.4-45.2); HEMOGLOBIN 11.1 GM/dL (10.7-15.3); LYMPH % 28.3 % (8-40); MCH 25.8 pg (25.7-33.7); MCHC 31.4 g/dl (32.0-36.0); MEAN PLT VOLUME 8.4 fl (7.5-11.1); MONO % 11.3 % (3.8-10.2); NEUT % 58.4 % (42.8-82.8); PLATELET COUNT 462 10^3/uL (134-434); RBC 4.29 M/mm3 (3.60-5.2); RDW 18.3 % (11.6-15.6); WHITE BLOOD COUNT 4.7 K/mm3 (4.0-10.0)
[2023-06-05] MEDS ORDERED: INSULIN (LEVEMIR) 100 UNITS/ML UNITS SQ SCH (10:00)
[2023-06-05] MEDS: PANTOPRAZOLE 40 MG TABLET PO SCH (10:05)
[2023-06-05] MEDS: DULoxetine HCL 30 MG CAPSULE.DR PO SCH (10:05)
[2023-06-05] MEDS: levETIRAcetam 500 MG/5 ML INJECTION VIAL IVPB SCH ×2 (10:05→21:35)
[2023-06-05 11:19] LABS: POTASSIUM 3.9 mmol/L (3.5-5.1)
[2023-06-05 11:22] LABS: ALBUMIN 3.3 g/dl (3.4-5.0)
[2023-06-05 11:23] LABS: BLOOD UREA NITROGEN 10.9 mg/dL (7-18); MAGNESIUM 2.1 mg/dL (1.8-2.4)
[2023-06-05 11:26] LABS: PHOSPHOROUS 1.9 mg/dL (2.5-4.9)
[2023-06-05 11:27] LABS: BILIRUBIN,TOTAL 0.9 mg/dL (0.2-1)
[2023-06-05] MEDS: LOSARTAN POTASSIUM 50 MG TABLET PO SCH (11:41)
[2023-06-05] MEDS ORDERED: ACETAMINOPHEN 325 MG TABLET (FP) PO PRN (12:53)
[2023-06-05] MEDS: clonazePAM 0.5 MG TABLET PO PRN ×2 (13:24→21:35)
[2023-06-05] MEDS: LIDOCAINE 5% TOPICAL PATCH TP SCH (13:24)
[2023-06-05] MEDS: KETOROLAC TROMETHAMINE 30 MG/1 ML VIAL IVPUSH PRN (16:34)
[2023-06-05] MEDS: INSULIN (NOVOLOG) ASPART 100 UNITS/ML 10ML VIAL SQ SCH ×2 (16:39→22:41)
[2023-06-05] MEDS ORDERED: QUEtiapine FUMARATE 25 MG TABLET PO SCH (22:00)
[2023-06-05] MEDS ORDERED: LIDOCAINE PATCH REMOVAL MC SCH (22:00)
[2023-06-05] MEDS: INSULIN (LEVEMIR) 100 UNITS/ML UNITS SQ SCH (22:42)
[2023-06-06] MEDS ORDERED: DEXTROSE 50%-WATER - 25 GM/50 ML VIAL IVPUSH ONE (05:58)
[2023-06-06] MEDS ORDERED: DEXTROSE 50%-WATER 25 GM/50 ML DISP.SYRIN ONE (06:03)
[2023-06-06] MEDS: INSULIN (LEVEMIR) 100 UNITS/ML UNITS SQ SCH ×2 (06:29→23:01)
[2023-06-06] MEDS: INSULIN (NOVOLOG) ASPART 100 UNITS/ML 10ML VIAL SQ SCH (06:29)
[2023-06-06] MEDS: INSULIN SLIDING SCALE (NOVOLOG) 1 VIAL SQ SCH ×4 (06:30→23:02)
[2023-06-06] MEDS: PANTOPRAZOLE 40 MG TABLET PO SCH (06:55)
[2023-06-06 07:57] LABS: GLUCOSE,RANDOM 49 mg/dL (74-106)
[2023-06-06] MEDS ORDERED: INSULIN (LEVEMIR) 100 UNITS/ML UNITS SQ SCH (08:07)
[2023-06-06] MEDS ORDERED: DEXTROSE 50%-WATER 25 GM/50 ML DISP.SYRIN IVPUSH PRN ×2 (08:11→15:22)
[2023-06-06 09:50] LABS: BASO % 0.9 % (0-2.0); EOS % 1.5 % (0-4.5); HEMATOCRIT 37.1 % (32.4-45.2); HEMOGLOBIN 11.8 GM/dL (10.7-15.3); LYMPH % 40.5 % (8-40); MCH 26.2 pg (25.7-33.7); MEAN CELL VOLUME 81.9 fl (80-96); MEAN PLT VOLUME 7.9 fl (7.5-11.1); MONO % 11.9 % (3.8-10.2); NEUT % 45.2 % (42.8-82.8); PLATELET COUNT 419 10^3/uL (134-434); RBC 4.52 M/mm3 (3.60-5.2); RDW 17.6 % (11.6-15.6); WHITE BLOOD COUNT 4.2 K/mm3 (4.0-10.0)
[2023-06-06] MEDS: levETIRAcetam 500 MG/5 ML INJECTION VIAL IVPB SCH ×2 (09:50→23:00)
[2023-06-06] MEDS: LIDOCAINE 5% TOPICAL PATCH TP SCH (09:50)
[2023-06-06] MEDS: DULoxetine HCL 30 MG CAPSULE.DR PO SCH (09:50)
[2023-06-06] MEDS: LOSARTAN POTASSIUM 50 MG TABLET PO SCH ×2 (09:51→10:10)
[2023-06-06] MEDS: clonazePAM 0.5 MG TABLET PO PRN ×2 (10:10→23:00)
[2023-06-06 10:17] LABS: POTASSIUM 4.1 mmol/L (3.5-5.1)
[2023-06-06 10:23] LABS: CALCIUM 9.5 mg/dL (8.5-10.1)
[2023-06-06 10:24] LABS: ALBUMIN 3.3 g/dl (3.4-5.0); BLOOD UREA NITROGEN 11.2 mg/dL (7-18)
[2023-06-06 10:26] LABS: BILIRUBIN,TOTAL 0.7 mg/dL (0.2-1)
[2023-06-06 10:27] LABS: CREATININE 0.6 mg/dL (0.55-1.3); PHOSPHOROUS 4.5 mg/dL (2.5-4.9)
[2023-06-06] MEDS: LORazepam 2 MG/ML SDV VIAL IVPUSH PRN (12:46)
[2023-06-06] MEDS: KETOROLAC TROMETHAMINE 30 MG/1 ML VIAL IVPUSH PRN (12:55)
[2023-06-06] MEDS ORDERED: ACETAMINOPHEN 325 MG TABLET (FP) PO PRN (15:25)
[2023-06-06] MEDS ORDERED: KETOROLAC TROMETHAMINE 30 MG/1 ML VIAL IVPUSH PRN (15:25)
[2023-06-06 15:59] VITALS: BMI 18.0
[2023-06-06] MEDS ORDERED: INSULIN (NOVOLOG) ASPART 100 UNITS/ML 10ML VIAL ONE ×2 (17:26→22:53)
[2023-06-06] MEDS ORDERED: QUEtiapine FUMARATE 50 MG TABLET PO SCH (22:00)
[2023-06-06] MEDS ORDERED: LIDOCAINE PATCH REMOVAL MC SCH ×2 (22:00)
[2023-06-07] MEDS: INSULIN (LEVEMIR) 100 UNITS/ML UNITS SQ SCH (06:05)
[2023-06-07] MEDS ORDERED: INSULIN (NOVOLOG) ASPART 100 UNITS/ML 10ML VIAL ONE (06:19)
[2023-06-07] MEDS: INSULIN SLIDING SCALE (NOVOLOG) 1 VIAL SQ SCH ×2 (06:42→10:33)
[2023-06-07] MEDS ORDERED: PANTOPRAZOLE 40 MG TABLET PO SCH (07:00)
[2023-06-07 08:42] LABS: POTASSIUM 3.8 mmol/L (3.5-5.1)
[2023-06-07 08:51] LABS: CALCIUM 9.5 mg/dL (8.5-10.1)
[2023-06-07 08:52] LABS: BLOOD UREA NITROGEN 8.3 mg/dL (7-18)
[2023-06-07 08:55] LABS: CREATININE 0.7 mg/dL (0.55-1.3); PHOSPHOROUS 3.6 mg/dL (2.5-4.9)
[2023-06-07] MEDS: levETIRAcetam 500 MG/5 ML INJECTION VIAL IVPB SCH (09:48)
[2023-06-07] MEDS ORDERED: DULoxetine HCL 30 MG CAPSULE.DR PO SCH (10:00)
[2023-06-07] MEDS ORDERED: LOSARTAN POTASSIUM 50 MG TABLET PO SCH (10:00)
[2023-06-07] MEDS ORDERED: LIDOCAINE 5% TOPICAL PATCH TP SCH (10:00)
[2023-06-07] MEDS ORDERED: ENOXAPARIN NA (PORCINE) 40 MG/0.4 ML DISP.SYRIN SQ SCH (10:00)
[2023-06-07] MEDS: clonazePAM 0.5 MG TABLET PO PRN (15:07)
[2023-06-07 15:58] VITALS: BP 150/101; PULSE 104; RESP 19; TEMP 97.6
== END 2023-06-07 16:38 | disposition home or self-care (01) | DRG 101 ==
LOC: JER 11:38 → JERBED 16:12 → J5S 21:57 → J4W 06-06 15:15
PROVIDERS: ADMIT Internal Medicine; ATTEND Internal Medicine
DX: R56.9 Unspecified convulsions (principal); I10 Essential (primary) hypertension; K31.84 Gastroparesis; F41.8 Other specified anxiety disorders; E10.43 Type 1 diabetes mellitus with diabetic autonomic (poly)neuropathy
CPT/HCPCS: 36415; 70450-TC; 70551-TC; 71045-TC-FY; 80048; 80053; 82010; 82803; 82947; 82962; 83036; 83735; 84100; 84484; 85025; 85610; 85730; 93005; 93010; 97116-GP; 97162-GP; 99291

== ENCOUNTER 2023-06-13 21:25 | Emergency (ER) | payer OTHER ==
[2023-06-13 21:42] VITALS: TEMP 98.1; BMI 18.3
[2023-06-13] MEDS ORDERED: levETIRAcetam 500 MG/5 ML INJECTION VIAL IVPB ONE ×2 (22:26→23:17)
[2023-06-13] MEDS ORDERED: ACETAMINOPHEN 1000 MG/100 ML BAG IVPB ONE (22:26)
[2023-06-13] MEDS ORDERED: ACETAMINOPHEN INJECTION 100 ML IVPB ONE (23:18)
[2023-06-13 23:48] LABS: BASO % 1.1 % (0-2.0); EOS % 1.4 % (0-4.5); HEMATOCRIT 36.6 % (32.4-45.2); HEMOGLOBIN 11.7 GM/dL (10.7-15.3); MCH 26.4 pg (25.7-33.7); MCHC 31.9 g/dl (32.0-36.0); MEAN CELL VOLUME 82.7 fl (80-96); MEAN PLT VOLUME 8.8 fl (7.5-11.1); MONO % 9.4 % (3.8-10.2); NEUT % 54.1 % (42.8-82.8); PLATELET COUNT 375 10^3/uL (134-434); POTASSIUM 4.8 mmol/L (3.5-5.1); RBC 4.42 M/mm3 (3.60-5.2); RDW 17.7 % (11.6-15.6); WHITE BLOOD COUNT 6.3 K/mm3 (4.0-10.0)
[2023-06-13 23:50] LABS: ALBUMIN 3.5 g/dl (3.4-5.0); BLOOD UREA NITROGEN 10.1 mg/dL (7-18); CALCIUM 9.2 mg/dL (8.5-10.1); MAGNESIUM 2.1 mg/dL (1.8-2.4)
[2023-06-13 23:53] LABS: CREATININE 0.8 mg/dL (0.55-1.3)
[2023-06-13 23:55] LABS: BILIRUBIN,TOTAL 0.6 mg/dL (0.2-1); TOT PROT 7.7 g/dl (6.4-8.2)
[2023-06-14 00:07] LABS: LACTIC ACID 4.5 mmol/L (0.4-2.0)
[2023-06-14] MEDS ORDERED: LACTATED RINGERS SOLUTION 1000 ML INFUS.BAG IV ONE (00:13)
[2023-06-14 00:52] VITALS: BP 153/106; PULSE 109; RESP 17
== END 2023-06-14 02:53 | disposition left against medical advice (07) ==
LOC: JER 21:25
PROC: 3E033NZ Introduction of Analgesics, Hypnotics, Sedatives into Peripheral Vein, Percutaneous Approach (ICD-10-PCS; principal; 2023-06-13)
PROC: 3E033GC Introduction of Other Therapeutic Substance into Peripheral Vein, Percutaneous Approach (ICD-10-PCS; 2023-06-13)
DX: G40.909 Epilepsy, unspecified, not intractable, without status epilepticus (principal); M79.10 Myalgia, unspecified site; R07.9 Chest pain, unspecified; Z53.21 Procedure and treatment not carried out due to patient leaving prior to being seen by health care provider; R25.1 Tremor, unspecified; R51.9 Headache, unspecified; R11.0 Nausea; R61 Generalized hyperhidrosis
CPT/HCPCS: 36415; 70450-TC; 71045-TC-FY; 80053; 83605; 83735; 84484; 84703; 85025; 93005; 93010; 99285-25